=== PATIENT | male | born 1960 | race Caucasian/White ===

== ENCOUNTER → 2019-02-21 13:03 | Outpatient (CLI) | payer MEDICAID, SELFPAY ==
--- NOTE | 2019-02-21 13:05 | CI_ITS ---
Cerebrovascular Exam Indications: 780.4 Dizziness and giddiness. IMPRESSIONS 1. The bilateral vertebral arteries are patent with normal antegrade flow. 2. Study suggests less than 20% stenosis involving the right internal carotid artery. 3. Study suggests less than 20% stenosis involving the left internal carotid artery. History: Risk factors: Extobacco use. Hypertension. Diabetes mellitus. Carotid duplex study. Complete study and Doppler flow study including spectral analysis, color and plummer scale imaging. Height: Height: 177.8cm. Height: 70in. Weight: Weight: 101.2kg. Weight: 222.5lb. Body mass index: BMI: 32kg/m^2. Body surface area: BSA: 2.27m^2. Location: Vascular laboratory. Patient status: Outpatient. Tables: Arterial flow: + +--------+--------+ Location V sys V ed + +--------+--------+ Right CCA - proximal 86.8cm/s 19.6cm/s + +--------+--------+ Right CCA - distal 84.5cm/s 19.3cm/s + +--------+--------+ Right ECA 106cm/s 18cm/s + +--------+--------+ Right ICA - proximal 62.3cm/s 16.9cm/s + +--------+--------+ Right ICA - mid 63cm/s 17.1cm/s + +--------+--------+ Right ICA - distal 47.4cm/s 18.5cm/s + +--------+--------+ Right vertebral 74.2cm/s 22.7cm/s + +--------+--------+ Left CCA - proximal 85.6cm/s 15.4cm/s + +--------+--------+ Left CCA - distal 77.1cm/s 21.5cm/s + +--------+--------+ Left ECA 117cm/s 21.8cm/s + +--------+--------+ Left ICA - proximal 69.7cm/s 23.7cm/s + +--------+--------+ Left ICA - mid 73.4cm/s 25.2cm/s + +--------+--------+ Left ICA - distal 72.1cm/s 27.4cm/s + +--------+--------+ Left vertebral 45cm/s 15.5cm/s + +--------+--------+ Velocity ratios: + + + + + + Right, V sys Right, V ed Left, V sys Left, V ed + + + + + + Max ICA/dist CCA 0.75 0.96 0.95 1.27 + + + + + + (Report amended ) Electronically signed by: Dedrick Brady [id number]
--- NOTE | 2019-02-21 13:05 | CA_ITS ---
PROCEDURE: 2-D M-mode and color Doppler study INDICATIONS FOR THE TEST: Chest pain COPD Heart Murmur Tobacco Smoking Palpitations Fatigue Syncope Edema Hypertension+Diabetes Mellitus Rheumatic Fever SOB + P[place] Obesity Hyperlipidemia Family History HD Additional History PATIENT INFORMATION HEIGHT: 70 WEIGHT:223 GENDER: Male B/P: 2-D/M-MODE INTERPRETATION: 2-D MEASUREMENTS OBSERVED VALUES IN CMS Right Ventricular Dimension (RVDd) 2.6 Interventricular Septum (Thickness)(IVsd) 1.4 Left Ventricular Internal Dimensions(LVIDd) 4.7 Left Ventricular Posterior Wall (Thickness)(LVPWd) 1.3 Aortic Root 3.1 Aortic Cusp Separation 2.2 Left Atrial Dimensions (LAD) 4.0 2D 1. Left atrium is mildly enlarged, left ventricle is normal size, mild concentric left ventricular hypertrophy, visually estimated ejection fraction 55% with no regional wall motion abnormality. 2. The right atrium and right ventricle are normal size and contractility. 3. The aortic valve is minimally thickened and fibrosed. 4. The mitral and tricuspid valvular grossly normal. 5. The pulmonic valve is poorly visualized. 6. No significant pericardial effusion noted. DOPPLER INTERROGATION: Doppler interrogation of the aortic, mitral and tricuspid valvular presence of mild mitral and tricuspid regurgitation, tricuspid regurgitation jet velocity is inadequate for calculation of the right ventricle systolic pressure, grade 1 diastolic dysfunction seen with tissue Doppler evidence of raised left atrial pressure. CONCLUSION: 1. Mildly enlarged left atrium, normal left ventricular size, mild concentric left ventricular hypertrophy, visually estimated ejection fraction 55% with no regional wall motion abnormality, grade 1 diastolic dysfunction seen with tissue Doppler evidence of raised left atrial pressure. 2. Mild mitral and tricuspid regurgitation. 3. No significant pericardial effusion noted.
== END ==
PROVIDERS: PCP Nurse Practitioner; Visit Provider Nurse Practitioner
DX: R06.02 Shortness of breath (principal); I10 Essential (primary) hypertension
CPT/HCPCS: 93306; 93880

== ENCOUNTER → 2019-02-27 14:05 | Outpatient (CLI) | payer MEDICAID, SELFPAY ==
[2019-02-27 16:17] LABS: Blood Urea Nitrogen 16 mg/dL (7-18); Creatinine,Serum 1.18 mg/dL (0.70-1.30); Estimated Glomerular Filt Rate 63 ml/min (>60); GFR (African American) 76 ML/MIN (>60)
== END ==
PROVIDERS: Visit Provider Surgery
DX: R10.32 Left lower quadrant pain (principal); Z01.818 Encounter for other preprocedural examination
CPT/HCPCS: 36415; 82565; 84520

== ENCOUNTER → 2019-03-01 09:00 | Outpatient (CLI) | payer MEDICAID, SELFPAY ==
--- NOTE | 2019-03-01 09:25 | CT_ITS ---
CT abdomen pelvis w con CLINICAL INDICATION: Left lower quadrant pain, diarrhea ITS.REASON: lower quad pain/diarrhea ORDERING PHYSICIAN: Vishal Singh MD PATIENT AGE: 58 years COMPARISON: None TECHNIQUE: Axial images obtained with sagittal and coronal reformats. All CT scans at the facility use one or more dose reduction, viz: automated exposure control, ma/kV adjustment per patient size (including targeted exams where dose is matched to indication, i.e. head), or iterative reconstruction technique. PROCEDURE: Oral Contrast: Redicat IV Contrast: Optiray 350, 75 mL's. FINDINGS: There is noncalcified subpleural nodule in the right middle lobe anteriorly measuring 6 mm. Noncalcified 4 mm subpleural nodule present in the right lower lobe. Calcified granuloma is present right lung base medially. The liver, spleen, adrenal glands, and pancreas have an unremarkable appearance. There are postcholecystectomy changes. No renal or ureteral calculi. No intestinal obstruction or free air. No evidence of appendicitis or diverticulitis. There is a small appendicolith present. Prostate is prominent at 6 cm. No acute bony anomalies evident. IMPRESSION: 1. No acute abdominal or pelvic findings. 2. Enlarged prostate. 3. Noncalcified pulmonary nodules in the right middle and right lower lobe. Consider six-month CT follow-up
[2019-03-01 09:28] LABS: Adenovirus F 40/41, stool Not Detected (NotDetected); Astrovirus Not Detected (NotDetected); Campylobacter Not Detected (NotDetected); Clostridium Difficile A/B, PCR Not Detected (NotDetected); Cryptosporidium Not Detected (NotDetected); Cyclospora Cayetanesis Not Detected (NotDetected); Entamoeba histolytica Not Detected (NotDetected); Enteroaggregative E coli Not Detected (NotDetected); Enteropathogenic E coli Not Detected (NotDetected); Enterotoxigenic E coli Not Detected (NotDetected); Giardia lamblia Not Detected (NotDetected); Norovirus Not Detected (NotDetected); Plesimonas Shigalloides, PCR Not Detected (NotDetected); Rotavirus A Not Detected (NotDetected); Salmonella, PCR Not Detected (NotDetected); Sapovirus Not Detected (NotDetected); Shiga-like toxin E coli Not Detected (NotDetected); Shigella Enterovasive E coli Not Detected (NotDetected); Vibrio Cholerae Not Detected (NotDetected); Vibrio, PCR Not Detected (NotDetected); Yersinia Entercolitica, PCR Not Detected (NotDetected)
== END ==
PROVIDERS: PCP Family Medicine; Visit Provider Surgery
DX: R10.32 Left lower quadrant pain (principal); R19.7 Diarrhea, unspecified
CPT/HCPCS: 74177; 87506; 87507; Q9967

== ENCOUNTER → 2019-04-03 14:12 | Outpatient (CLI) | payer MEDICAID, SELFPAY ==
--- NOTE | 2019-04-03 14:15 | XR_ITS ---
XR chest 2V HISTORY: ITS.REASON: shortness of breath ORDERING PHYSICIAN: Vishal Singh MD PATIENT AGE: 58 years COMPARISON: 05/09/2017 FINDINGS: There is mild pectus deformity with some attenuation of the right heart border. Normal heart size. No evidence of CHF. No lobar consolidation or collapse. Bone plate is present along the lower cervical spine. IMPRESSION: No change with no acute finding
== END ==
PROVIDERS: PCP Family Medicine; Visit Provider Surgery
DX: R06.02 Shortness of breath (principal)
CPT/HCPCS: 71046

== ENCOUNTER → 2019-10-30 13:47 | Outpatient (CLI) | payer OTHER, SELFPAY ==
--- NOTE | 2019-10-30 14:03 | CT_ITS ---
PROCEDURE: CT CHEST W CON CLINCAL INDICATION: 5 mo fu COMPARISON: ABDPELW CT abdomen pelvis w con from 03/01/2019 TECHNIQUE: IV Contrast: 75ml Optiray 350 Axial images obtained with sagittal and coronal reformats. All CT scans at the facility use one or more dose reduction, viz: automated exposure control, ma/kV adjustment per patient size (including targeted exams where dose is matched to indication, i.e. head), or iterative reconstruction technique. FINDINGS: HEART,AORTA,PULMONARY ARTERIES Unremarkable. MEDIASTINAL AND HILAR STRUCTURES: No mediastinal or hilar mass evident. No dominant adenopathy. LUNGS: 2 mm noncalcified nodule right upper lobe laterally and anteriorly nonspecific. 3 mm nodule right upper lobe centrally series 3, image 42. Stable 6 mm nodule right middle lobe. There is a 4 mm nodule in the right CP angle unchanged and a 4 mm nodule in the right lower lobe posteriorly and medially unchanged. Calcified granulomas present in the right lower lobe medially. 4 mm noncalcified nodule left upper lobe series 3, image 39. PLEURAL SPACES: No significant effusion. No evidence of pneumothorax. BONY STRUCTURES: Degenerative changes thoracic spine LYMPH NODES: Scattered small mediastinal lymph nodes. No adenopathy UPPER ABDOMEN: Fatty liver ADDITIONAL FINDINGS: Bilateral gynecomastia IMPRESSION: 1. The right lower lobe pulmonary nodules previously mention on the abdomen CT of 03/01/2019 are unchanged. The largest nodule 6 mm and is unchanged. There are other smaller nodules present in both right and left lung. These areas were not previously imaged. Suggest continued 12 month follow-up chest CT. 2. Other nonacute findings as described above. Dictated by: Dedrick Brady MD 11/01/2019 11:12 Electronically signed by Dedrick Brady MD in [place] 11/01/2019 11:12
[2019-10-30 14:24] LABS: Blood Urea Nitrogen 18 mg/dL (7-18); Creatinine,Serum 1.07 mg/dL (0.70-1.30); Estimated Glomerular Filt Rate 70 ml/min (>60); GFR (African American) 85 ML/MIN (>60)
== END ==
PROVIDERS: Visit Provider Surgery
DX: R91.8 Other nonspecific abnormal finding of lung field (principal)
CPT/HCPCS: 36415; 71260; 82565; 84520; Q9967

== ENCOUNTER → 2020-04-30 14:34 | Outpatient (CLI) | payer OTHER, SELFPAY ==
[2020-04-30 15:23] LABS: Adenovirus,PCR Not Detected (NotDetected); Bordetella Pertussis Not Detected (NotDetected); Chlamydophila Pneumoniae, PCR Not Detected (NotDetected); Coronavirus 229E Not Detected (NotDetected); Coronavirus NL63 Not Detected (NotDetected); Coronavirus OC43 Not Detected (NotDetected); Coronovirus HKU1,PCR Not Detected (NotDetected); Human Metapneumovirus Not Detected (NotDetected); Influenza A, PCR Not Detected (NotDetected); Influenza AH1, 2009 Not Detected (NotDetected); Influenza AH1, PCR Not Detected (NotDetected); Influenza AH3,PCR Not Detected (NotDetected); Influenza B, PCR Not Detected (NotDetected); Mycoplasma Pneumoniae, PCR Not Detected (NotDetected); Parainfluenza 1, PCR Not Detected (NotDetected); Parainfluenza 2, PCR Not Detected (NotDetected); Parainfluenza 3, PCR Not Detected (NotDetected); Parainfluenza 4, PCR Not Detected (NotDetected); Respiratory Syncytial Virus Not Detected (NotDetected); Rhinovirus/Enterovirus Not Detected (NotDetected)
== END ==
PROVIDERS: PCP Nurse Practitioner; Visit Provider Nurse Practitioner
DX: Z20.828 Contact with and (suspected) exposure to other viral communicable diseases (principal)
CPT/HCPCS: 87486; 87581; 87633; 87798; U0003

== ENCOUNTER → 2021-01-16 13:00 | Outpatient (POV) | payer OTHER, SELFPAY ==
[2021-01-16 13:27] VITALS: BP 142/78; PULSE 77; RESP 18; O2SAT 98; BMI 32.3
--- NOTE | 2021-01-16 16:17 | HMH.PMCON ---
Assessment and Plan (1) Postlaminectomy syndrome of cervical region Status: Acute Category: Medical Code(s): M96.1 - Postlaminectomy syndrome, not elsewhere classified (2) Cervical radiculopathy Status: Acute Category: Medical Code(s): M54.12 - Radiculopathy, cervical region - Assessment and plan all Dx Assessment and Plan for all problems:: We will schedule the patient for C5-C6 cervical epidural steroid injection. I will follow-up with him afterwards reassess his symptoms at that time he has been instructed to call the office if he has any issues prior to his next appointment. He is not on any anticoagulation therapy. Dr. Colin has reviewed this note and agrees with this plan of care. This note was dictated using voice recognition software and may contain errors or omissions HPI - Data of Consult Consult date: 01/16/21 Requesting Physician: Basia James APRN Primary Care Provider: Ryne Bergman MD - Consult Narrative Reason for consult: Neck pain History of present illness: Mr. Castrejon is a 60 year old male who presents today for consultation regards to his cervical pain. Patient has cervical pain that radiates down his left arm at times. Any kind of increased use increases his pain. Rest and ice decreases pain. Patient has numbness and tingling in his left arm. Patient rates his pain today 6 out of 10. He has had neck surgery in the past. Patient is currently taking Tylenol as needed for pain. Patient is interested in injective therapy. Patient's not on any anticoagulation therapy. CC: Basia James APRN [facility] History I have reviewed the patient's past medical history: Yes Medical History: Reports:: Diabetes Mellitus Type 2, Gastroesophageal Reflux Disease(GERD), Hypertension Denies:: Cancer, Diabetes Mellitus Type 1, Internal Pacemaker, Lung Disease, MRSA, Seizures *Have you ever received a pneumonia vaccine?: Yes *Have you received a flu vaccine this season?: Yes Other Medical History: Reports: Arthritis. Denies: Blood Transfusion Reaction Laterality Cases: Bilateral: Arthroscopy Shoulder, Carpal Tunnel Release, Tonsillectomy Other Surgeries: Yes: Cholecystectomy, Colonoscopy, EGD, Other. No: Pacemaker Amputation: No Fractures: No - *Social History Smoking Status: Former smoker Tobacco Type: cigarettes Alcohol Intake: never Substance Use Type: denies use *Occupational Status:: retired Housing: house Household Members: other *Travel in the last 8 weeks: None Family Hx:: Unable to obtain Review of Systems - Review of Systems ROS General: no recent weight change, no fever, no sleep disturbances Respiratory: no cough, no shortness of air, no recurring pulmonary infections Cardiovascular/Peripheral Vascular: No chest pain, No palpitations, no edema, no shortness of breath. Gastrointestinal: no new onset incontinence, normal bowel movements reported Genitourinary: no new onset incontinence Musculoskeletal: Cervical pain, left arm pain at times Psychiatric: normal mood/ affect Neurological: [denies new onset weakness in extremities], [denies new onset balance issues] Meds Home Medications Medication Instructions Recorded Confirmed Type aspirin 81 mg tablet,delayed 81 mg PO QDAY 10/05/17 11/13/19 History release cyclobenzaprine 10 mg tablet 10 mg PO TID 10/05/17 11/13/19 History fluoxetine 60 mg tablet 60 mg PO QDAY 10/05/17 11/13/19 History hydrocodone 7.5 mg-acetaminophen 1 tab PO Q6H PRN 10/05/17 11/13/19 History 325 mg tablet multivitamin 1 tab PO QDAY 10/05/17 11/13/19 History omeprazole 40 mg capsule,delayed 40 mg PO QDAY 10/05/17 11/13/19 History release topiramate 25 mg tablet 25 mg PO QDAY 10/05/17 11/13/19 History Losartan/Hydrochlorothiazide 1 tab PO QDAY 04/03/19 11/13/19 History [Hyzaar 50-12.5 Tablet] Propranolol HCl [Propranolol HCl 120 mg PO QDAY 04/03/19 11/13/19 History ER] Allergies Allergy/AdvReac Type Severity
== END ==
PROVIDERS: PCP Family Medicine; Visit Provider Clinical Nurse Specialist Family Health
DX: M96.1 Postlaminectomy syndrome, not elsewhere classified (principal); M54.12 Radiculopathy, cervical region
CPT/HCPCS: 99202; G0463

== ENCOUNTER → 2021-01-24 15:03 | Outpatient (CLI) | payer OTHER, SELFPAY | PROVIDERS: PCP Family Medicine; Visit Provider Family Medicine | DX: Z71.3 Dietary counseling and surveillance (principal); E11.65 Type 2 diabetes mellitus with hyperglycemia | CPT/HCPCS: 97802 ==

== ENCOUNTER → 2021-01-30 15:15 | Outpatient (CLI) | payer OTHER, SELFPAY ==
--- NOTE | 2021-01-30 15:21 | MR_ITS ---
PROCEDURE: MR CERVICAL SPINE WO CON CLINICAL INDICATION: NECK PAIN Lt arm pain. Prior surgery 7-8 years ago. COMPARISON: CR CS5 CERVICAL SPINE 4 OR 5 VIEWS from 11/16/2016 TECHNIQUE: Standard multiplanar multiecho sequences are performed without contrast. 3-D MIP and myelographic images are also rendered and reviewed FINDINGS: Craniocervical junction has an unremarkable appearance. Prior anterior cervical disc fusion from C5-T1. Artifact is present from the bony hardware. C2-C3: Mild prominence of the posterior longitudinal ligament without impingement. C3-C4: Mild concentric bulging disc. There is mild left-sided uncovertebral hypertrophy causing moderate left-sided foraminal narrowing. There is narrowing of the canal at this level measuring 9 mm. High without cord impingement C4-C5: Unremarkable C5-C6: Artifact from postsurgical changes. Right-sided uncovertebral hypertrophy with foraminal narrowing on the right. C6-C7: Artifact from postsurgical changes with mild left uncovertebral hypertrophy and foraminal narrowing. C7-T1: Artifact from postsurgical changes. T1-T2: Bulging disc with bilateral lateral recess and moderate bilateral foraminal narrowing. IMPRESSION: 1. Postsurgical changes with artifact. Good alignment. The 2. Multilevel cervical spondylosis with lateral recess and foraminal narrowing. Please see above for detailed description at each level. 3. No extruded herniated disc. Dictated by: Dedrick Brady MD 01/31/2021 10:47 Dedrick Brady MD in [place] 01/31/2021 10:47
== END ==
PROVIDERS: PCP Family Medicine; Visit Provider Clinical Nurse Specialist Family Health
DX: M54.2 Cervicalgia (principal)
CPT/HCPCS: 72141; 76376

== ENCOUNTER → 2021-02-07 11:56 | Day surgery (SDC) | payer OTHER, SELFPAY ==
[2021-02-07 12:05] VITALS: BP 187/84; PULSE 65; RESP 18; TEMP 36.6; O2SAT 98; BMI 33.2
--- NOTE | 2021-02-07 12:33 | PC.NURSE ---
procedure not completed due to elevated glucose. discussed this with the patient. pt discharged home to return in two weeks.
--- NOTE | 2021-02-07 12:45 | HMH.PAINSOAP ---
[facility] Pain Management SOAP Note Subjective:: Patient was scheduled for an injection today. His blood sugar was 320 so we have postponed his injection until his sugars under control. Objective:: Alert and oriented x3 no acute distress. Motor strength of the upper extremities is 5/5. There is no gross sensory deficit. Assessment:: Degenerative disc disease of cervical spine with cervical radiculopathy symptoms Plan:: Patient was scheduled for an injection today. His blood sugar was 320 so we have postponed his injection until his sugars under control. We will follow-up with him in 2 weeks. Will reevaluate symptoms at that time. [facility] History Medical History: Reports:: Gastroesophageal Reflux Disease(GERD), Hypertension Denies:: Cancer, Diabetes Mellitus Type 1, Diabetes Mellitus Type 2, Internal Pacemaker, Lung Disease, MRSA, Seizures *Have you ever received a pneumonia vaccine?: No *Have you received a flu vaccine this season?: No Other Medical History: Reports: Arthritis. Denies: Blood Transfusion Reaction Laterality Cases: Bilateral: Arthroscopy Shoulder, Carpal Tunnel Release, Tonsillectomy Other Surgeries: Yes: Cholecystectomy, Colonoscopy, EGD, Other. No: Pacemaker Amputation: No Fractures: No - *Social History Smoking Status: Former smoker Tobacco Type: cigarettes Alcohol Intake: never Substance Use Type: denies use *Occupational Status:: employed Housing: house Household Members: spouse *Travel in the last 8 weeks: None Family Hx:: Unable to obtain
== END ==
PROVIDERS: PCP Family Medicine; Visit Provider Anesthesiology
DX: M50.10 Cervical disc disorder with radiculopathy, unspecified cervical region (principal)
CPT/HCPCS: 99212; G0463

== ENCOUNTER 2021-02-28 09:45 | Day surgery (SDC) | payer OTHER, SELFPAY ==
[2021-02-28 10:07] VITALS: BP 157/90; PULSE 66; RESP 20; TEMP 36.7; O2SAT 94; BMI 33.0
[2021-02-28 10:38] VITALS: BP 168/86; PULSE 65; RESP 17; O2SAT 94
[2021-02-28 10:40] VITALS: BP 168/86; PULSE 65; RESP 18; O2SAT 94
--- NOTE | 2021-02-28 10:50 | P.PCN_ITS ---
- Procedure Date: 02/28/21 Time: 10:50 Anesthesiologist:: Jese Colin MD Complications:: None Pre-procedure Diagnosis:: Degenerative disc disease of the cervical spine with previous ACDF and postlaminectomy syndrome cervical spine Post-procedure Diagnosis:: Same Indications for Procedure:: This patient is a pleasant 60-year-old white male who we are treating for neck pain with cervical radiculopathy symptoms with previous ACDF and postlaminectomy syndrome cervical spine. We postponed his procedure last week because his blood sugar was 320. It is down to 200 today. He has increased his insulin. He is doing well with better control of his glucose. We will do a cervical epidural steroid injection under fluoroscopy today. Procedure Details:: Cervical epidural steroid injection under fluoroscopy Informed consent was obtained and the risks and benefits of the procedure was explained to the patient. The patient was taken to the procedure room placed prone on the procedure table. The neck was prepped using ChloraPrep. The skin and subcutaneous tissues were anesthetized using lidocaine. I placed a 18-gauge epidural needle into the C5-C6 interspace and advanced using [id number] to air and fluoroscopic guidance. After confirmation of needle placement in the epidural space with dye, I injected 3 mL's lidocaine 1.5% and Depo-Medrol 80 mg. The patient tolerated the procedure well with no complications. Plan and Disposition:: We will follow-up with him in 2 weeks. Will reevaluate his symptoms at that ti me.
[2021-02-28 11:01] VITALS: BP 163/80; PULSE 67; RESP 20; O2SAT 98
== END 2021-02-28 11:02 | disposition home or self-care (01) ==
PROVIDERS: PCP Family Medicine; Visit Provider Anesthesiology
DX: M50.30 Other cervical disc degeneration, unspecified cervical region (principal); M96.1 Postlaminectomy syndrome, not elsewhere classified; Z87.39 Personal history of other diseases of the musculoskeletal system and connective tissue; I10 Essential (primary) hypertension; K21.9 Gastro-esophageal reflux disease without esophagitis; M19.90 Unspecified osteoarthritis, unspecified site; F41.9 Anxiety disorder, unspecified; F32.9 Major depressive disorder, single episode, unspecified; E11.9 Type 2 diabetes mellitus without complications; Z87.09 Personal history of other diseases of the respiratory system; Z87.891 Personal history of nicotine dependence; Z79.899 Other long term (current) drug therapy
CPT/HCPCS: 62321; J1040; Q9966

== ENCOUNTER → 2021-03-24 09:47 | Outpatient (POV) | payer OTHER, SELFPAY ==
[2021-03-24 10:02] VITALS: BP 180/80; PULSE 65; RESP 18; O2SAT 97; BMI 32.3
--- NOTE | 2021-03-24 10:11 | P.CONS_ITS ---
[facility] Pain Management SOAP Note Subjective:: Patient is a 60-year-old white male who presents today for follow-up after a cervical epidural steroid injection. He has been treated for degenerative disc disease cervical spine with cervical radiculopathy symptoms and postlaminectomy syndrome cervical spine. His pain is a 2 out of 10 today. He says he got great relief with the injection. He is doing well overall since the injection and is able to do more activity with less pain. He is continuing with home stretching. Review of Systems General: No recent weight changes, no fever, no sleep disturbances Respiratory: No cough, no shortness of air, no recurring pulmonary infections Cardiovascular/peripheral vascular: No chest pain, no palpitations, no edema, no shortness of breath Gastrointestinal: No new onset incontinence, normal bowel movements reported Genitourinary: No new onset incontinence Musculoskeletal: Denies pain at this time Psychiatric: Normal mood/affect Neurological: [Denies weakness in extremities], [denies balance issues] Objective:: Physical exam General: Alert and oriented x3, no acute distress, pleasant and cooperative, [on room air] Lungs: Respirations even and unlabored, symmetrical chest expansion Eyes: PERRL Musculoskeletal: Flexion and extension of [] nonguarded, deep tendon reflexes normal, strength in upper and lower extremities [5/5], normal gait noted Neurological: Speech clear, partnership marketing manager equal, no gross sensory deficit Assessment:: Degenerative disc disease cervical spine with cervical radiculopathy symptoms, postlaminectomy syndrome cervical spine Plan:: Patient is doing well overall. We will plan to see him back in 3 months for reevaluation of symptoms. Patient has been instructed to contact the clinic with any concerns before the next appointment. Dr. Colin has reviewed this note and agrees with this plan of care. This note was dictated using voice recognition software and make contain errors or omissions. [facility] History I have reviewed the patient's past medical history: Yes Medical History: Reports:: Diabetes Mellitus Type 2, Gastroesophageal Reflux Disease(GERD), Hypertension Denies:: Cancer, Diabetes Mellitus Type 1, Internal Pacemaker, Lung Disease, MRSA, Seizures *Have you ever received a pneumonia vaccine?: Yes *Have you received a flu vaccine this season?: Yes Other Medical History: Reports: Arthritis. Denies: Blood Transfusion Reaction Laterality Cases: Bilateral: Arthroscopy Shoulder, Carpal Tunnel Release, Tonsillectomy Other Surgeries: Yes: Cholecystectomy, Colonoscopy, EGD, Other. No: Pacemaker Amputation: No Fractures: No - *Social History Smoking Status: Never smoker Tobacco Type: cigarettes Alcohol Intake: never Substance Use Type: denies use *Occupational Status:: employed Housing: house Household Members: spouse *Travel in the last 8 weeks: None Family Hx:: Unable to obtain
== END ==
PROVIDERS: PCP Family Medicine; Visit Provider Clinical Nurse Specialist Family Health
DX: M50.10 Cervical disc disorder with radiculopathy, unspecified cervical region (principal); M96.1 Postlaminectomy syndrome, not elsewhere classified
CPT/HCPCS: 99212; G0463

== ENCOUNTER 2021-06-21 11:42 | Emergency (ER) | payer OTHER, SELFPAY ==
[2021-06-21 13:00] VITALS: BP 164/82; PULSE 78; RESP 18; TEMP 36.9; O2SAT 97; BMI 35.2
--- NOTE | 2021-06-21 13:26 | HMH.EDUTC ---
[facility] Disposition Clinical Impression: Upper respiratory infection Qualifiers: URI type: unspecified viral URI Qualified Code(s): J06.9 - Acute upper respiratory infection, unspecified Disposition: Home, Self-Care Condition on Discharge: Good Instructions: Preventing the Spread of Coronavirus Discharge Instructions Additional Instructions: You have been tested for COVID19. Please isolate yourself as if you are positive until test results received. Return to [facility] if difficulty breathing, chest pain, etc Referrals: Ryne Bergman MD [Primary Care Provider] - Time of Disposition: 13:29 Medical Decision Making - Jay Inquiry Pt receiving controlled substance: No Vital Signs: 06/21/21 13:00 Temperature 98.4 F Temperature Source Oral Pulse Rate [Right Brachial] 78 Respiratory Rate 18 Blood Pressure [Right Arm] 164/82 H Blood Pressure Mean [Right Arm] 109 Blood Pressure Source [Right Arm] Automatic Cuff Blood Pressure Position [Right Arm] Sitting 02 Sat by Pulse Oximetry 97 Oxygen Delivery Method Room Air Orders (Tests/Meds): ORDERS Category Date Time Status Covid-19 Nasal PCR ([facility]) Routine Lab 06/21/21 13:25 Ordered [facility] [place] HPI - General Stated complaint: exposure,symptoms Time Seen by Provider: 06/21/21 13:26 Mode of Arrival: Ambulatory Source of Information: Patient Limitations: No Limitations Description of Symptoms (Recalled from Triage Doc. by RN): PATIENT C/O VOMITING, DIARRHEA, BODY ACHES, HEADACHE, COUGH, AND SNEEZING X 1 WEEK. REQUESTING COVID TEST HEENT Symptoms (Recalled from RN notes): Yes Resp Symptoms (Recalled from RN notes): No Skin Symptoms (Recalled from RN notes): No MS Symptoms (Recalled from RN notes): No Functional Status (Recalled from RN notes): WNL - History of Present Illness Provider Complaint: Headache, cough, congestion, sneezing, runny nose, chest tightness, diarrhea X 1 week. No known direct exposure to COVID19. No fever. He has been vaccinated. Onset (ago): week(s) (1) Relieving factors: none Exacerbating factors: none Associated symptoms: cough, fever/chills, headaches Treatments prior to arrival: none - Related Data Home Medications Medication Instructions Recorded Confirmed omeprazole 40 mg capsule,delayed 40 mg PO QDAY 01/09/18 05/14/21 release topiramate 25 mg tablet 25 mg PO QDAY 10/05/17 02/07/21 Propranolol HCl [Propranolol HCl 120 mg PO QDAY 04/03/19 02/07/21 ER] Furosemide [Lasix 20mg tab] 20 mg PO DAILY 02/28/21 02/28/21 Metformin HCl [Metformin 850mg 750 mg PO DAILY 02/28/21 02/28/21 Tablet] Pramipexole Di-HCl [Pramipexole ER] 1 mg PO DAILY 02/28/21 02/28/21 Tamsulosin HCl 0.4 mg PO DAILY 02/28/21 02/28/21 Allergies Allergy/AdvReac Type Severity Reaction Status Date / Time morphine [MORPHINE] Allergy Unknown Verified 02/07/21 12:22 - Worker's Comp Is this a Worker's Comp case?: No [facility] History - Hepatitis A Screen Drug use history?: No High risk sexual behaviors?: No History of sexually transmitted infection?: No Currently employed?: No Childcare worker?: No Do you have indoor plumbing?: Yes Do you have electricity?: Yes Attestation statement:: This patient has been screened for Hepatitis A risk factors. I have reviewed the patient's past medical history: Yes Medical History: Reports:: Diabetes Mellitus Type 2, Gastroesophageal Reflux Disease(GERD), Hypertension Denies:: Cancer, Diabetes Mellitus Type 1, Internal Pacemaker, Lung Disease, MRSA, Seizures Other Medical History: Reports: Arthritis. Denies: Blood Transfusion Reaction Comment: Obstructive Sleep Apnea Syndrome Laterality Cases: Bilateral: Arthroscopy Shoulder, Carpal Tunnel Release, Tonsillectomy Other Surgeries: Yes: Cholecystectomy, Colonoscopy, EGD, Other. No: Pacemaker Amputation: No Fractures: No - Social History Smoking Status: Never smoker Tobacco Type: cigarettes Alcohol Intake: never Substance Use Type: denies use Occupational
[2021-06-21 13:35] VITALS: BP 164/82; PULSE 78; RESP 18; TEMP 36.9; O2SAT 97
== END 2021-06-21 13:36 | disposition home or self-care (01) ==
PROVIDERS: Emergency Provider Physician Assistant; PCP Family Medicine
DX: J06.9 Acute upper respiratory infection, unspecified (principal)
CPT/HCPCS: 99202; C9803; G0463; U0003; U0005

== ENCOUNTER → 2021-06-24 13:09 | Outpatient (POV) | payer OTHER, SELFPAY ==
[2021-06-24 13:17] VITALS: BP 188/91; PULSE 67; RESP 18; O2SAT 95; BMI 32.3
--- NOTE | 2021-06-24 13:44 | P.CONS_ITS ---
[facility] Pain Management SOAP Note Subjective:: Patient is a 60-year-old white male who presents today for follow-up. The patient was seen in the clinic on 03/24/2021. He has undergone a cervical epidural steroid injection at C6-C7 area. He reports that he got excellent relief until 2 weeks ago. He got up to 80% relief with these injections. This was the patient's #1 cervical epidural steroid injection. The patient says that his pain has returned. He does rate his pain a 6 out of 10. He is having radicular pain into bilateral upper extremities as well. Patient does have a history of postlaminectomy syndrome cervical spine. He has tried failed conservative therapies of physical therapy for more than 6 weeks and continues with home stretching. He is also tried ice and heat therapies. Review of Systems General: No recent weight changes, no fever, no sleep disturbances Respiratory: No cough, no shortness of air, no recurring pulmonary infections Cardiovascular/peripheral vascular: No chest pain, no palpitations, no edema, no shortness of breath Gastrointestinal: No new onset incontinence, normal bowel movements reported Genitourinary: No new onset incontinence Musculoskeletal: Neck pain with radiation into bilateral upper extremities Psychiatric: [Normal mood/affect] Neurological: [Denies weakness in extremities], [denies balance issues] Objective:: Physical exam General: Alert and oriented x3, no acute distress, pleasant and cooperative, [on room air] Lungs: Respirations even and unlabored, symmetrical chest expansion Eyes: PERRL Musculoskeletal: Flexion and extension of cervical [spine] somewhat guarded secondary to pain, normal gait noted Neurological: Speech clear, [correctional counselor/case manager equal], no gross sensory deficit Assessment:: Degenerative disc disease cervical spine with cervical radiculopathy symptoms Plan:: Patient got excellent relief from February 2021 until 2 weeks ago. The patient's pain has returned. We will schedule him for a repeat cervical epidural steroid injection at C6-C7 area, number 2 injection. We will see him back in the clinic after his injection for reevaluation symptoms. Patient is not on any anticoagulation therapy. Possible side effects of corticosteroids have been discussed with the patient. Risks and benefits of the procedure have been explained to the patient. Patient would like to proceed with the procedure. Patient has been instructed to contact the clinic with any concerns before the next appointment. Dr. Colin has reviewed this note and agrees with this plan of care. This note was dictated using voice recognition software and make contain errors or omissions. [facility] History I have reviewed the patient's past medical history: Yes Medical History: Reports:: Diabetes Mellitus Type 2, Gastroesophageal Reflux Disease(GERD), Hypertension Denies:: Cancer, Diabetes Mellitus Type 1, Internal Pacemaker, Lung Disease, MRSA, Seizures *Have you ever received a pneumonia vaccine?: Yes *Have you received a flu vaccine this season?: No Other Medical History: Reports: Arthritis. Denies: Blood Transfusion Reaction Laterality Cases: Bilateral: Arthroscopy Shoulder, Carpal Tunnel Release, Tonsillectomy Other Surgeries: Yes: Cholecystectomy, Colonoscopy, EGD, Other. No: Pacemaker Amputation: No Fractures: No - *Social History Smoking Status: Never smoker Tobacco Type: cigarettes Alcohol Intake: never Substance Use Type: denies use *Occupational Status:: unemployed Housing: house Household Members: spouse *Travel in the last 8 weeks: None Family Hx:: Unable to obtain
== END ==
PROVIDERS: PCP Family Medicine; Visit Provider Clinical Nurse Specialist Family Health
DX: M50.10 Cervical disc disorder with radiculopathy, unspecified cervical region (principal)
CPT/HCPCS: 99212; G0463

== ENCOUNTER → 2021-07-18 11:11 | Outpatient (CLI) | payer OTHER, SELFPAY | PROVIDERS: PCP Family Medicine; Visit Provider Nurse Practitioner | DX: Z20.822 Contact with and (suspected) exposure to COVID-19 (principal) | CPT/HCPCS: C9803; U0003; U0005 ==

== ENCOUNTER 2021-07-25 09:12 | Day surgery (SDC) | payer OTHER, SELFPAY ==
[2021-07-25 09:16] VITALS: BP 151/78; PULSE 64; RESP 18; TEMP 36.6; O2SAT 96; BMI 33.0
[2021-07-25 09:37] VITALS: BP 179/80; PULSE 69; RESP 18; O2SAT 96
[2021-07-25 09:44] VITALS: BP 175/87; PULSE 66; RESP 18; O2SAT 95
--- NOTE | 2021-07-25 09:49 | HMH.PMPROC ---
- Procedure Date: 07/25/21 Time: 09:50 Anesthesiologist:: Jese Colin MD Complications:: None Pre-procedure Diagnosis:: Degenerative disc disease of the cervical spine with cervical radiculopathy symptoms Post-procedure Diagnosis:: Same Indications for Procedure:: This patient is a pleasant 60-year-old white male who we are treating for neck pain with cervical radicular symptoms. He has increasing pain from previous postlaminectomy syndrome and cervical fusion. He did very well with his last cervical epidural steroid injection. We will plan on a repeat cervical epidural steroid injection under fluoroscopy today to help with his pain symptoms. He was 80% better for several weeks after his last cervical epidural steroid injection. Procedure Details:: Cervical epidural steroid injection under fluoroscopy Informed consent was obtained and the risks and benefits of the procedure was explained to the patient. The patient was taken to the procedure room placed prone on the procedure table. The neck was prepped using ChloraPrep. The skin and subcutaneous tissues were anesthetized using lidocaine. I placed a 18-gauge epidural needle into the C5-C6 interspace and advanced using [id number] to air and fluoroscopic guidance. After confirmation of needle placement in the epidural space with dye, I injected 3 mL's lidocaine 1.5% and Depo-Medrol 80 mg. The patient tolerated the procedure well with no complications. Plan and Disposition:: We will follow-up with him in 2 weeks. Will reevaluate his symptoms at that time.
[2021-07-25 10:05] VITALS: BP 171/84; PULSE 68; RESP 20; O2SAT 94
== END 2021-07-25 10:05 | disposition home or self-care (01) ==
LOC: SC.PAINP 09:13
PROVIDERS: PCP Family Medicine; Visit Provider Anesthesiology
DX: M50.10 Cervical disc disorder with radiculopathy, unspecified cervical region (principal); I10 Essential (primary) hypertension; K21.9 Gastro-esophageal reflux disease without esophagitis; M19.90 Unspecified osteoarthritis, unspecified site; E11.9 Type 2 diabetes mellitus without complications; N40.0 Benign prostatic hyperplasia without lower urinary tract symptoms; F41.9 Anxiety disorder, unspecified; F32.9 Major depressive disorder, single episode, unspecified; G43.909 Migraine, unspecified, not intractable, without status migrainosus; Z88.6 Allergy status to analgesic agent
CPT/HCPCS: 62321; J1040; Q9966

== ENCOUNTER → 2021-08-11 10:18 | Outpatient (POV) | payer OTHER, SELFPAY ==
[2021-08-11 10:27] VITALS: BP 184/87; PULSE 66; RESP 18; O2SAT 97; BMI 32.3
--- NOTE | 2021-08-11 10:31 | HMH.PAINSOAP ---
[facility] Pain Management SOAP Note Subjective:: Patient is a 60-year-old white male who presents today for follow-up. He is following up after his second cervical epidural steroid injection. Patient's pain is a 1 out of 10. He is doing very well since the injection. He does have a history of postlaminectomy syndrome and cervical fusion. Patient admits he was not expecting to get as much relief as he has with the injections. Overall he is doing well at this time. Review of Systems General: No recent weight changes, no fever, no sleep disturbances Respiratory: No cough, no shortness of air, no recurring pulmonary infections Cardiovascular/peripheral vascular: No chest pain, no palpitations, no edema, no shortness of breath Gastrointestinal: No new onset incontinence, normal bowel movements reported Genitourinary: No new onset incontinence Musculoskeletal: Intermittent neck pain Psychiatric: [Normal mood/affect] Neurological: [Denies weakness in extremities], [denies balance issues] Objective:: Physical exam General: Alert and oriented x3, no acute distress, pleasant and cooperative Lungs: Respirations even and unlabored, symmetrical chest expansion Eyes: PERRL Musculoskeletal: Flexion and extension of cervical [spine] somewhat guarded secondary to pain, [normal gait noted Neurological: Speech clear, no gross sensory deficit Assessment:: Degenerative disc disease cervical spine cervical radiculopathy symptoms, postlaminectomy syndrome cervical spine Plan:: Patient is doing well overall since his second cervical epidural steroid injection at C5-C6. We will schedule patient for 3-month follow-up to reevaluate his symptoms at that time. Patient has been instructed to contact the clinic with any concerns before the next appointment. Dr. Colin has reviewed this note and agrees with this plan of care. This note was dictated using voice recognition software and make contain errors or omissions. [facility] History I have reviewed the patient's past medical history: Yes Medical History: Reports:: Diabetes Mellitus Type 2, Gastroesophageal Reflux Disease(GERD), Hypertension Denies:: Cancer, Diabetes Mellitus Type 1, Internal Pacemaker, Lung Disease, MRSA, Seizures *Have you ever received a pneumonia vaccine?: Yes *Have you received a flu vaccine this season?: Yes Other Medical History: Reports: Arthritis. Denies: Blood Transfusion Reaction Laterality Cases: Bilateral: Arthroscopy Shoulder, Carpal Tunnel Release, Tonsillectomy Other Surgeries: Yes: Cholecystectomy, Colonoscopy, EGD, Other. No: Pacemaker Amputation: No Fractures: No - *Social History Smoking Status: Never smoker Tobacco Type: cigarettes Alcohol Intake: never Substance Use Type: denies use *Occupational Status:: employed Housing: house Household Members: spouse *Travel in the last 8 weeks: None Family Hx:: Unable to obtain
== END ==
PROVIDERS: Visit Provider Clinical Nurse Specialist Family Health
DX: M50.10 Cervical disc disorder with radiculopathy, unspecified cervical region (principal); M96.1 Postlaminectomy syndrome, not elsewhere classified
CPT/HCPCS: 99212; G0463

== ENCOUNTER → 2021-09-22 13:19 | Outpatient (CLI) | payer OTHER, SELFPAY | PROVIDERS: PCP Family Medicine; Visit Provider Nurse Practitioner | DX: Z20.822 Contact with and (suspected) exposure to COVID-19 (principal) | CPT/HCPCS: C9803; U0003; U0005 ==

== ENCOUNTER → 2021-10-20 14:25 | Outpatient (CLI) | payer OTHER, SELFPAY | PROVIDERS: Visit Provider Nurse Practitioner | DX: Z20.822 Contact with and (suspected) exposure to COVID-19 (principal) | CPT/HCPCS: C9803; U0003; U0005 ==

== ENCOUNTER → 2021-11-10 11:43 | Outpatient (POV) | payer OTHER, SELFPAY ==
[2021-11-10 12:10] VITALS: BP 156/76; PULSE 68; RESP 18; TEMP 36.4; O2SAT 92; BMI 33.0
--- NOTE | 2021-11-10 12:34 | P.CONS_ITS ---
[facility] Pain Management SOAP Note Subjective:: This patient is a very pleasant 61-year-old white male who presents today for follow-up. He is currently being treated for degenerative disease of the cervical spine with cervical radiculopathy. He has previously undergone cervical epidural steroid injections in the past and notes 70 to 80% pain relief in his pain symptoms for approximately 3 to 4 months. He states that his last injection was back in July and today states that the pain remains ongoing at this time. He states he would like to hold off on scheduling a repeat injection at this time since he continues to experience adequate pain relief. He rates his pain today as a 2 out of 10. Objective:: General: Alert and oriented x3, no acute distress, pleasant and cooperative Lungs: Resps E/U, symmetric chest expansion Eyes: PERRL Musculoskeletal: limited flexion and extension of the vocal spine secondary to pain. Deep tendon reflexes were normal in bilateral upper and lower extremities. Motor exam was grossly intact in the bilateral and lower extremities, positive Spurling's on the right Neurological: Speech is clear, low heel builder equal, no gross sensory deficits Assessment:: Degenerative disc disease of the cervical spine with cervical radiculopathy Plan:: I discussed with the patient that we will hold off on scheduling repeat cervical epidural steroid injection at C5-C6 for now but we will closely monitor for now. We will follow-up with this patient in 1 month for reassessment of his chronic pain symptoms and we will schedule him for a repeat injection in the future should the pain return. [facility] History Medical History: Reports:: Diabetes Mellitus Type 2, Gastroesophageal Reflux Disease(GERD), Hypertension Denies:: Cancer, Diabetes Mellitus Type 1, Internal Pacemaker, Lung Disease, MRSA, Seizures *Have you ever received a pneumonia vaccine?: Yes *Have you received a flu vaccine this season?: Yes Other Medical History: Reports: Arthritis. Denies: Blood Transfusion Reaction Laterality Cases: Bilateral: Arthroscopy Shoulder, Carpal Tunnel Release, Tonsillectomy Other Surgeries: Yes: Cholecystectomy, Colonoscopy, EGD, Other. No: Pacemaker Amputation: No Fractures: No - *Social History Smoking Status: Never smoker Tobacco Type: cigarettes Alcohol Intake: never Substance Use Type: denies use *Occupational Status:: retired Housing: house Household Members: spouse *Travel in the last 8 weeks: None Family Hx:: Unable to obtain
== END ==
PROVIDERS: Visit Provider Anesthesiology Pain Medicine
DX: M50.10 Cervical disc disorder with radiculopathy, unspecified cervical region (principal)
CPT/HCPCS: 99212; G0463

== ENCOUNTER → 2021-12-08 11:43 | Outpatient (POV) | payer OTHER, SELFPAY ==
[2021-12-08 12:12] VITALS: BP 175/85; PULSE 70; RESP 20; TEMP 36.5; O2SAT 97; BMI 32.3
--- NOTE | 2021-12-08 12:14 | P.CONS_ITS ---
[facility] Pain Management SOAP Note Subjective:: This patient is a very pleasant 61-year-old white male who presents today for follow-up/valuation regarding chronic cervical neck pain with cervical radiculopathy. Patient has previously undergone cervical epidural steroid injections in the past with 80 to 90% improvement terms of the cervical neck p ain and radicular symptoms. Patient is status post cervical epidural steroid injection several months ago. He states he still doing fantastic. Rates his pain 1/10. Objective:: Is awake alert oriented x3. In no acute distress. Flexion-extension cervical spine normal. Deep tendon reflexes upper and lower extremities normal. Motor strength upper extremities normal. Gait is normal. Patient is in no acute distress. Essentially, without complaints. Assessment:: Degenerative disc disease cervical spine. Multiple levels. Cervical radicu lopathy. Plan:: Discussed in detail with the patient regarding as needed cervical epidural steroid injections. Patient will call when he feels he needs another injection. [facility] History Medical History: Reports:: Diabetes Mellitus Type 2, Gastroesophageal Reflux Disease(GERD), Hypertension Denies:: Cancer, Diabetes Mellitus Type 1, Internal Pacemaker, Lung Disease, MRSA, Seizures *Have you ever received a pneumonia vaccine?: Yes *Have you received a flu vaccine this season?: Yes Other Medical History: Reports: Arthritis. Denies: Blood Transfusion Reaction Laterality Cases: Bilateral: Arthroscopy Shoulder, Carpal Tunnel Release, Tonsillectomy Other Surgeries: Yes: Cholecystectomy, Colonoscopy, EGD, Other. No: Pacemaker Amputation: No Fractures: No - *Social History Smoking Status: Never smoker Tobacco Type: cigarettes Alcohol Intake: never Substance Use Type: denies use *Occupational Status:: other Housing: house Household Members: spouse *Travel in the last 8 weeks: None Family Hx:: Unable to obtain
== END ==
PROVIDERS: Visit Provider Nurse Anesthetist, Certified Registered
DX: M50.10 Cervical disc disorder with radiculopathy, unspecified cervical region (principal)
CPT/HCPCS: 99212; G0463

== ENCOUNTER → 2022-08-10 14:43 | Outpatient (POV) | payer MEDICARE, OTHER, SELFPAY ==
[2022-08-10 15:24] VITALS: BP 156/78; PULSE 75; RESP 20; O2SAT 97
--- NOTE | 2022-08-10 15:59 | EXP.PAIN.SOA ---
[facility] Pain Management SOAP Note Subjective:: Patient is a pleasant 61-year-old male who presents today for follow-up. We are currently treating the patient for degenerative disc disease of cervical spine with cervical radiculopathy symptoms, chronic neck pain. Today patient rates his pain a 8 out of 10. Patient states he did just fall yesterday as he was going down the ramp at his house due to ice. Patient states that he does not believe he had any significant trauma from this fall however he continues to have worsening neck pain with headaches over the last month. Patient has previously had cervical epidural steroid injections in the past that provided 80 to 90% improvement of his symptoms. These injections typically lasted several months and improved his ability to perform activities of daily living. Patient denies any cardiac or kidney issues. Patient states he does take [id number] Tylenol and ibuprofen as needed to help with his pain symptoms. Patient does state he is a diabetic. Patient is not on any scheduled medications. His Jay is [id number]. It has been reviewed and appropriate. Review of Systems: General: No recent weight changes, no fever, no sleep disturbances Respiratory: No cough, no shortness of air, no recurring pulmonary infections Cardiovascular/peripheral vascular: No chest pain, no palpitations, no edema, no shortness of breath Gastrointestinal: No new onset incontinence, normal bowel movements reported Genitourinary: No new onset incontinence Musculoskeletal: Neck pain Psychiatric: [Normal mood/affect] Neurological: [Denies weakness in extremities], [denies balance issues] Objective:: Physical Exam: General: Alert and oriented x3, no acute distress, pleasant and cooperative Lungs: Respirations even and unlabored, symmetrical chest expansion Eyes: PERRL Musculoskeletal: Flexion and extension of cervical [spine] somewhat guarded secondary to pain, [antalgic gait noted] Neurological: Speech clear, no gross sensory deficit Assessment:: Degenerative disc disease of cervical spine with cervical radiculopathy symptoms, chronic neck pain Plan:: Patient is experiencing significant pain in his neck and limited range of motion of his cervical spine during today's visit. I have discussed with the patient regarding doing a repeat cervical epidural steroid injection. Risk and benefits were discussed with the patient. He would like to proceed forward with this plan of care. He is not on any blood thinners. I will also order the patient a 2-week dose of diclofenac 75 mg twice daily. Patient has been counseled to take this medication with food and discontinue all other NSAIDs while using this medication. Patient has been counseled to continue to monitor his blood glucose and take his diabetes medication as prescribed. We will schedule the patient for a [facility] C6-C7. Patient has been instructed to contact the clinic with any concerns before the next appointment. Dr. Colin has reviewed this note and agrees with this plan of care. This note was dictated using voice recognition software and make contain errors or omissions. PFSH PFSH Social History Smoking Status: Never smoker alcohol intake: never substance use type: denies use current occupational status: other Travel in the last 8 weeks: None household members: spouse housing: house current occupational exposures/hazards: No caffeine: Yes
== END | disposition home or self-care (01) ==
PROVIDERS: Visit Provider Nurse Practitioner Family
DX: M50.123 Cervical disc disorder at C6-C7 level with radiculopathy (principal); G89.29 Other chronic pain
CPT/HCPCS: 99212; G0463

== ENCOUNTER 2022-08-14 13:12 | Day surgery (SDC) | payer MEDICARE, OTHER, SELFPAY ==
[2022-08-14 13:15] VITALS: BP 162/92; PULSE 79; RESP 18; TEMP 36.3; O2SAT 97; BMI 32.3
[2022-08-14 13:35] VITALS: BP 159/81; PULSE 81; RESP 18; O2SAT 97
[2022-08-14 13:36] VITALS: BP 159/81; PULSE 81; RESP 18; O2SAT 97
[2022-08-14 13:36] LABS: POC Glucose,Bedside 133 (70-110)
[2022-08-14 13:50] VITALS: BP 148/69; PULSE 75; RESP 20
--- NOTE | 2022-08-25 13:44 | P.PCN_ITS ---
Procedure Date: 08/14/22 Time: 13:15 Anesthesiologist:: Lion Hinds CRNA Complications:: None Pre-procedure Diagnosis:: Cervical degenerative disc disease. Cervical radiculopathy Post-procedure Diagnosis:: Same. Indications for Procedure:: Patient is a pleasant 61-year-old male that comes our clinic today for cervical epidural steroid injection. Patient describes posterior cervical neck pain with flexion and/or extension left and right rotation. Also complains of bilateral shoulder and arm radicular symptoms at times. Procedure Details:: Procedure:Cervical epidural steroid injection Informed consent was obtained and the risks and benefits of the procedure were explained to the patient. The patient was taken to the procedure room and noninvasive monitors placed, including noninvasive blood pressure cuff and pulse oximeter. The neck was prepped using Chloraprep as a cleansing solution. The C6- C7 interspace was viewed using fluroscopy. The skin and subcutaneous tissues were anesthetized using lidocaine 1.5% and a 25-gauge needle. After this an 18- gauge Touhy epidural needle was placed into the C6-C7 interspace under fluroscopy guidance and advanced using loss of resistance to air until the epidural space was encountered. After confirmation of needle placement in the epidural space using contrast dye, a solution containing normal saline, 2 mL and Depo-Medrol 80 mg was incrementally injected into the cervical epidural space.~ The patient tolerated the procedure well with no complications. The patient was observed in the Pain Clinic and then discharged home neurologically intact. Plan and Disposition:: Patient was discharged without incident.
== END 2022-08-14 13:51 | disposition home or self-care (01) ==
LOC: SC.PAINP 13:12
PROVIDERS: PCP Family Medicine; Visit Provider Nurse Anesthetist, Certified Registered
DX: M50.123 Cervical disc disorder at C6-C7 level with radiculopathy (principal); Z79.899 Other long term (current) drug therapy; E11.9 Type 2 diabetes mellitus without complications
CPT/HCPCS: 62321; 82962; J1040; Q9966

== ENCOUNTER → 2022-08-31 10:32 | Outpatient (POV) | payer MEDICARE, OTHER, SELFPAY ==
[2022-08-31 10:39] VITALS: BP 159/82; PULSE 77; RESP 18; O2SAT 96; BMI 33.0
--- NOTE | 2022-08-31 11:03 | A.OFFVIS_ITS ---
[facility] Pain Management SOAP Note Subjective:: Patient is a pleasant 61-year-old male who presents today for follow-up of cervical epidural steroid injection at C6-C7 on 08/14/2022. We are currently treating the patient for degenerative disc disease of cervical spine with cervical radiculopathy symptoms, chronic neck pain. Today the patient rates his pain a 4 out of 10. Patient states that he has had at least 50 to 60% relief following this last injection and feels like it is still providing some additional improvement. Patient was previously given diclofenac 75 mg twice daily however the patient states that he had 2 to 3 days of stomach upset that was caused from this medication. Patient states he did take it with food and it continues to be an issue. Patient does use extra strength Tylenol to provide some additional relief of his symptoms. Patient denies any new trauma or injury. Patient denies any change in location or type of pain he experiences. Patient's Jay is [phone]. It has been reviewed and appropriate. Review of Systems: General: No recent weight changes, no fever, no sleep disturbances Respiratory: No cough, no shortness of air, no recurring pulmonary infections Cardiovascular/peripheral vascular: No chest pain, no palpitations, no edema, no shortness of breath Gastrointestinal: No new onset incontinence, normal bowel movements reported Genitourinary: No new onset incontinence Musculoskeletal: Neck pain Psychiatric: [Normal mood/affect] Neurological: [Denies weakness in extremities], [denies balance issues] Objective:: Physical Exam: General: Alert and oriented x3, no acute distress, pleasant and cooperative Lungs: Respirations even and unlabored, symmetrical chest expansion Eyes: PERRL Musculoskeletal: Flexion and extension of cervical [spine] somewhat guarded secondary to pain, [antalgic gait noted] Neurological: Speech clear, no gross sensory deficit Assessment:: Degenerative disc disease cervical spine with cervical radiculopathy symptoms, chronic neck pain Plan:: Patient continues to experience significant pain in his neck with radiating symptoms into his bilateral upper extremities. I will order the patient tizanidine 4 mg at bedtime and provide a 14-day supply of this medication. I will also order the patient a compounding cream at today's visit. We will follow-up in 2 weeks for reevaluation of symptoms, medication refill if indicated and follow-up. Patient has been instructed to contact the clinic with any concerns before the next appointment. Dr. Colin has reviewed this note and agrees with this plan of care. This note was dictated using voice recognition software and make contain errors or omissions. [facility] Disclaimer: The information contained in this section may have been updated after the patient was seen, as this information can be updated by other users. Medical History (Updated 08/14/22 @ 13:21 by Danni Benavidez RN) Diabetes mellitus, type 2 H/O carpal tunnel syndrome History of chest pain Sleep apnea Surgical History (Updated 08/14/22 @ 13:21 by Danni Benavidez RN) H/O discectomy History of cholecystectomy Family History (Updated 08/14/22 @ 13:22 by Danni Benavidez RN) Other Lung cancer Social History (Updated 08/14/22 @ 13:19 by Danni Benavidez RN) Smoking Status: Never smoker alcohol intake: never substance use type: denies use current occupational status: other Travel in the last 8 weeks: None household members: spouse housing: house current occupational exposures/hazards: No caffeine: Yes
== END | disposition home or self-care (01) ==
PROVIDERS: PCP Family Medicine; Visit Provider Nurse Practitioner Family
DX: M50.123 Cervical disc disorder at C6-C7 level with radiculopathy (principal); Z79.899 Other long term (current) drug therapy
CPT/HCPCS: 99212; G0463

== ENCOUNTER → 2022-09-17 11:03 | Outpatient (POV) | payer MEDICARE, OTHER, SELFPAY ==
[2022-09-17 11:47] VITALS: BP 143/77; PULSE 79; RESP 18; O2SAT 97; BMI 33.0
--- NOTE | 2022-09-17 15:00 | EXP.PAIN.SOA ---
[facility] Pain Management SOAP Note Subjective:: Patient is a pleasant 62-year-old male who presents today for follow up. Patient is current being treated for degenerative disc disease of the cervical spine with cervical radiculopathy symptoms, chronic neck pain. We have been managing this patient with injective therapy. He had a cervical epidural steroid injection at C6-C7 on 08/14/2022. After this injection, patient states that he's had around 50-60% relief. He has been able to increase his activity since the injection. Denies any issues. He is still having some pain in his neck. He has been taking tizanidine that is helping. He also uses a compounding cream. He rates his pain a 6 out of 10. Jay appropriate. Review of Systems: General: No recent weight changes, no fever, no sleep disturbances Respiratory: No cough, no shortness of air, no recurring pulmonary infections Cardiovascular/peripheral vascular: No chest pain, no palpitations, no edema, no shortness of breath Gastrointestinal: No new onset incontinence, normal bowel movements reported Genitourinary: No new onset incontinence Musculoskeletal: Neck pain Psychiatric: [Normal mood/affect] Neurological: [Denies weakness in extremities], [denies balance issues] Objective:: Physical Exam: General: Alert and oriented x3, no acute distress, pleasant and cooperative Lungs: Respirations even and unlabored, symmetrical chest expansion Eyes: PERRL Musculoskeletal: Flexion and extension of cervical [spine] somewhat guarded secondary to pain, [antalgic gait noted] Neurological: Speech clear, no gross sensory deficit Assessment:: Degenerative disc disease of the cervical spine with cervical radiculopathy symptoms, chronic pain Plan:: Patient had significant relief of around 50-60% after his cervical epidural steroid injection at C6-C7 on 08/14/2022. The injection before this most recent one lasted him for about a year. He feels like he is still having some pain in his neck. Will schedule patient for a repeat GRANT C6-C7. Pt is not on any blood thinners. Will continue tizanidine. Patient has been instructed to contact the clinic with any concerns before the next appointment. Dr. Colin has reviewed this note and agrees with this plan of care. This note was dictated using voice recognition software and make contain errors or omissions. [facility] Disclaimer: The information contained in this section may have been updated after the patient was seen, as this information can be updated by other users. Medical History (Updated 08/14/22 @ 13:21 by Danni Benavidez RN) Diabetes mellitus, type 2 H/O carpal tunnel syndrome History of chest pain Sleep apnea Surgical History (Updated 08/14/22 @ 13:21 by Danni Benavidez RN) H/O discectomy History of cholecystectomy Family History (Updated 08/14/22 @ 13:22 by Danni Benavidez RN) Other Lung cancer Social History (Updated 08/14/22 @ 13:19 by Danni Benavidez RN) Smoking Status: Never smoker alcohol intake: never substance use type: denies use current occupational status: retired Travel in the last 8 weeks: None household members: spouse housing: house current occupational exposures/hazards: No caffeine: Yes
== END ==
PROVIDERS: PCP Family Medicine; Visit Provider Student in an Organized Health Care Education/Training Program
DX: M50.123 Cervical disc disorder at C6-C7 level with radiculopathy (principal); G89.29 Other chronic pain
CPT/HCPCS: 99212; G0463

== ENCOUNTER → 2023-09-03 15:53 | Outpatient (CLI) | payer MEDICARE, OTHER, SELFPAY ==
--- NOTE | 2023-09-03 16:03 | XR_ITS ---
FINAL REPORT CLINICAL HISTORY: ACUTE PAIN OF RIGHT SHOULDER COMPARISON: None FINDINGS: RIGHT SHOULDER Three views demonstrate no acute fracture or dislocation. There is mild AC joint and mild glenohumeral joint degenerative change. The visualized bony structures are well aligned. No soft tissue abnormality is seen. IMPRESSION: No acute process. Reviewed, Interpreted and Dictated by Vishal Garcia III, MD Transcribed by Danni Dickerson Authenticated and [facility]
== END ==
PROVIDERS: PCP Family Medicine; Visit Provider Family Medicine
DX: M25.511 Pain in right shoulder (principal)
CPT/HCPCS: 73030

== ENCOUNTER 2024-02-10 17:16 | Emergency (ER) | payer MEDICARE, SELFPAY ==
[2024-02-10 17:17] VITALS: BP 168/93; PULSE 78; RESP 14; TEMP 36.8; O2SAT 96; BMI 32.3
[2024-02-10 17:31] VITALS: BP 184/71; PULSE 79; O2SAT 94
--- NOTE | 2024-02-10 17:52 | PC.NURSE ---
US of bladder showing >600ml. notified. Awaiting orders.
--- NOTE | 2024-02-10 17:59 | HMH.EDGENADL ---
Discharge Plan Disposition Patient Disposition: Home, Self-Care Condition: Good Prescriptions Prescriptions: No Action omeprazole 40 mg capsule,delayed release(DR/EC) 40 mg PO QDAY topiramate [Topamax] 25 mg tablet 25 mg PO QDAY propranolol 120 MG capsule,extended release 24 hr 120 mg PO QDAY metformin 850 MG tablet 750 mg PO DAILY tamsulosin 0.4 MG capsule 0.4 mg PO DAILY furosemide 20 MG tablet 20 mg PO DAILY pramipexole 0.75 MG tablet extended release 24 hr 1 mg PO DAILY tizanidine [Zanaflex] 4 mg tablet 4 mg PO HS diclofenac sodium [diclofenac sodium] 75 mg tablet,delayed release (DR/EC) 75 mg PO BID Referrals Follow up/Referrals: Shaun Flowers MD [Staff Physician] - See instructions Ryne Bergman MD [Primary Care Provider] - See instructions Activity Restrictions/Add. Instructions Additional Instructions/Restrictions: You were evaluated in the emergency department today. You have an enlarged prostate, which I feel is the reason that you are unable to urinate. Please follow-up very closely with urology. See attached catheter care instructions. Return to the emergency department for new or worsening symptoms. Clinical Impressions Clinical Impression: Acute urinary retention, Enlarged prostate Instructions Patient Instructions: How to Care for Your Schwartz Catheter -- Male, DI for Urinary Retention in Men Discharge ED Provider: Nicole Bernstein General Adult HPI General Chief complaint: Urogenital-Male Stated complaint: unable to pee Time Seen by Provider: 02/10/24 17:44 Mode of Arrival: Ambulatory Source of Information: Patient Limitations: No Limitations Description of Symptoms (Recalled from ER Triage Doc. by RN): Pt c/o unable to urinate for the past few hours . Pt reports an urge to void but is unable other than dribbles. Pt also reports left flank pain as well. Denies N/V/D, fevers, or other complaints. History of Present Illness HPI narrative: This patient is a 63-year-old male who reports a history of hypertension and into the emergency department for evaluation with concern for inability to urinate. He notes that for the last 4 hours, he has been unable to urinate despite feeling the pain and pressure as well as urge to void. He states that he only gets out small dribbles. He also has some left flank pain. He notes that he has had some trouble urinating all day, but it completely stopped about 4 hours ago. He has been having diarrhea for few days and has felt generally unwell, but no other concerns noted. He denies any fevers, chills, nausea, vomiting, or other issues. He denies any prior urologic evaluation and denies any known history of prostate issues. He denies any history of urinary issues in the past. Related Data Home Medications Medication Instructions Recorded Confirmed omeprazole 40 mg capsule,delayed 40 mg PO QDAY stomach 10/05/17 09/17/22 release topiramate 25 mg tablet (Topamax) 25 mg PO QDAY STILES 10/05/17 09/17/22 propranolol 120 mg capsule,24 120 mg PO QDAY bp 04/03/19 09/17/22 hr,extended release furosemide 20 mg tablet 20 mg PO DAILY Fluid 02/28/21 09/17/22 metformin 850 mg tablet 750 mg PO DAILY Diabetes 02/28/21 09/17/22 pramipexole 0.75 mg 1 mg PO DAILY leg cramps 02/28/21 09/17/22 tablet,extended release 24 hr tamsulosin 0.4 mg capsule 0.4 mg PO DAILY prostate 02/28/21 09/17/22 diclofenac sodium 75 mg 75 mg PO BID Pain 08/14/22 09/17/22 tablet,delayed release tizanidine 4 mg tablet (Zanaflex) 4 mg PO HS MUSCLES 09/17/22 09/17/22 Allergies Allergy/AdvReac Type Severity Reaction Status Date / Time morphine [MORPHINE] Allergy Unknown Verified 08/14/22 13:15 [facility] Disclaimer: The information contained in this section may have been updated after the patient was seen, as this information can be updated by other users. Medical History H/O carpal tunnel syndrome Diabetes mellitus, type 2 Sleep apnea History of chest pain Surgical History H/O discectomy History of cholecystectomy Family History Other Lung cancer Social History Smoking Status: Never smoker alcohol intake: never substance use type: denies use current occupational status: retired Travel in the last 8 weeks: None household members: spouse housing: house current occupational exposures/hazards: No caffeine: Yes ROS Obtained: Yes All systems reviewed & no additional complaints except as documented Physical Exam General General appearance: alert and in no apparent distress Head Head exam: atraumatic and normocephalic Eye Eye exam: Present normal appearance, PERRL and EOMI ENT ENT exam: Present normal exam, normal oropharynx, mucous membranes moist and normal external ear exam Neck Neck exam: Present normal inspection, full ROM and trachea midline; Absent tenderness Chest Chest inspection: Present normal inspection and symmetric chest wall rise; Absent tenderness Respiratory Respiratory exam: Present normal lung sounds bilaterally; Absent respiratory distress, wheezes, stridor or accessory muscle use Cardiovascular Cardiovascular exam: Present regular rate and normal rhythm Abdominal Exam Abdominal exam: Present soft, distention and tenderness (Suprapubic distention and fullness); Absent guarding, rebound or rigidity Extremities Exam Extremities exam: Present normal inspection, full ROM and normal capillary refill; Absent tenderness or edema Back Exam Back exam: Present normal inspection and full ROM; Absent tenderness Neurological Exam Neurological exam: Present alert, oriented X3, CN II-XII intact and normal gait; Absent motor sensory deficit Psychiatric Psychiatric exam: Present normal affect and normal mood Skin Skin exam: Present warm and dry Medical Decision Making Medical Records Medical records reviewed: Yes I reviewed the patient's medical records. Jay Inquiry Pt receiving controlled substance: No Vital Signs: 02/10/24 17:17 02/10/24 17:31 02/10/24 20:00 Temperature 98.2 F 98.2 F Temperature Source Oral Oral Pulse Rate 79 72 Pulse Rate [Right Radial] 78 Respiratory Rate 14 19 Blood Pressure 184/71 H 129/78 Blood Pressure [Right Arm] 168/93 H Blood Pressure Mean 108 Blood Pressure Mean [Right Arm] 118 Blood Pressure Source Automatic Cuff Blood Pressure Source [Right Arm] Automatic Cuff Blood Pressure Position Sitting Blood Pressure Position [Right Arm] Sitting 02 Sat by Pulse Oximetry 96 94 L Oxygen Delivery Method Room Air Room Air Room Air Lab Data Lab results reviewed: Yes I reviewed the patient's lab results. Lab Results 02/10/24 18:21: WBC 9.1, RBC 4.51 L, Hgb 13.7 L, Hct 43.5, MCV 96.5 H, MCH 30.4, MCHC 31.5 L, RDW 13.5, Plt Count 217, MPV 8.2, Neut % (Auto) 71.1, Lymph % (Auto) 19.7, [place] % (Auto) 5.1, Eos % (Auto) 2.9, Baso % (Auto) 1.2, Neut # (Auto) 6.5, Lymph # (Auto) 1.8, [place] # (Auto) 0.5, Eos # (Auto) 0.3, Baso # (Auto) 0.1, Sodium 140, Potassium 3.7, Chloride 105, Carbon Dioxide 29, Anion Gap 9.7, BUN 15, Creatinine 0.90, Estimated Creat Clear 106, Estimated GFR 85, Est GFR ( Amer) 102, Glucose 137 H, Calcium 9.4, Total Bilirubin 0.5, AST 30, ALT 31, Alkaline Phosphatase 83, Total Protein 7.1, Albumin 4.2, Globulin 2.9, Albumin/Globulin Ratio 1.4 02/10/24 18:36: Urine Color Yellow, Urine Appearance Clear, Urine pH 7.0, Ur Specific [place] 1.020, Urine Protein Negative, Urine Glucose (UA) 2+, Urine Ketones Negative, Urine Blood 3+, Urine Nitrate Negative, Urine Bilirubin Negative, Urine Urobilinogen 0.2, Ur Leukocyte Esterase Negative, Urine RBC 10-20, Urine WBC None, Ur Squamous Epith Cells Occasional, Urine Bacteria None 02/10/24 18:21 02/10/24 18:21 Orders (Tests/Meds): ED MEDICATIONS Discontinued Medications Generic Name Dose Route Start Last Admin Trade Name Christopher PRN Reason Stop Dose Admin Iopamidol 75 ml 02/10/24 19:13 02/10/24 19:13 Iopamidol-370 (76%);100ml Bottle IV 02/10/24 19:14 75 ml ONCE ONE Administration Lidocaine HCl 1 ml 02/10/24 18:26 02/10/24 18:28 Lidocaine 2% Urojet 10ml TP 02/10/24 18:27 1 ml ONCE ONE Administration Ondansetron HCl 4 mg 02/10/24 18:02 02/10/24 18:28 Ondansetron 4mg/2ml Vial IV 02/10/24 18:03 4 mg ONCE ONE Administration Oxycodone HCl 5 mg 02/10/24 18:03 02/10/24 18:28 Oxycodone 5mg Immediate Release Tablet PO 02/10/24 18:04 5 mg ONCE ONE Administration Sodium Chloride 10 ml 02/10/24 19:13 02/10/24 19:13 Sodium Chloride 0.9% 10ml Syr (Rad Only) IV 02/10/24 19:14 10 ml ONCE ONE Administration ORDERS Category Date Time Status CT abdomen pelvis w con Stat Cat Scan 02/10/24 18:01 Completed Complete Blood Count Auto Diff Stat Lab 02/10/24 18:21 Completed Comprehensive Metabolic Panel Stat Lab 02/10/24 18:21 Completed Urinalysis and Microscopic Stat Lab 02/10/24 18:36 Completed Urine Culture Stat Micro 02/10/24 18:36 Received Medical Decision Narrative: In summary, this patient is a 63-year-old male presenting to the Emergency Department for evaluation of difficulty urinating. Differential diagnoses considered include but are not limited to BPH, prostate malignancy, constipation, colitis, cystitis, pyelonephritis. Ruling out the most morbid conditions drove assessment. It should be noted patient's history includes hypertension and diabetes which are not at goal therapy. This complicates all aspects of care by increasing patient's risk for morbidity. On exam, the patient is uncomfortable with suprapubic tenderness and fullness. Workup included CBC, CMP, urinalysis, urine culture, and bladder scan. Bladder scan demonstrated greater than 600 mL postvoid residual. Given this, decision was made with patient to place a Schwartz catheter. CT abdomen pelvis with IV contrast was ordered. I independently interpreted CT scan prior to the radiologist read and noted enlarged prostate. Please see their read for final interpretation. Labs were obtained that demonstrated hematuria without other acute concern abnormalities. I feel the hematuria is likely result of difficulty with Schwartz catheter placement secondary to enlarged prostate. On reassessment, patient had good improvement after administration of Schwartz catheter. He is draining urine without difficulty. No other findings noted on CT scan aside from prostate enlargement per radiology read. Given this, I feel that he is appropriate for discharge home with Schwartz and leg bag as well as close follow-up with urology. He was given information for urology follow-up as well as strict return precautions. He was discharged after all questions were answered. Critical Care Critical Care Time Critical Care Time: No
--- NOTE | 2024-02-10 18:01 | CT_ITS ---
PROCEDURE INFORMATION: Exam: CT Abdomen And Pelvis With Contrast Exam date and time: 02/10/2024 7:13 PM Age: 63 years old Clinical indication: Abdominal pain; Flank; Left; Additional info: Acute urinary retention, suprapubic/l flank pain TECHNIQUE: Imaging protocol: Computed tomography of the abdomen and pelvis with contrast. Radiation optimization: All CT scans at this facility use at least one of these dose optimization techniques: automated exposure control; mA and/or kV adjustment per patient size (includes targeted exams where dose is matched to clinical indication); or iterative reconstruction. Contrast material: ISOVUE; Contrast volume: 75 ml; Contrast route: IV; COMPARISON: No relevant prior studies available. FINDINGS: Tubes, catheters and devices: Urinary bladder is catheterized. Lungs: Multiple nonspecific pulmonary nodules. For follow-up purposes, examples include: 5 mm right middle lobe nodule image 14 series 3, 3 mm right lower lobe nodule image 29 series 3, and 3 mm lingula nodule image 5 series 3. Liver: Low attenuation hepatic lesions measuring up to 7 mm in diameter are incompletely characterized, but are likely cysts. No followup imaging is recommended. Gallbladder and bile ducts: Gallbladder is absent. Pancreas: Moderate pancreatic atrophy. Spleen: Normal. No splenomegaly. Adrenal glands: Normal. No mass. Kidneys and ureters: Normal. No hydronephrosis. Stomach and bowel: Mild sigmoid diverticulosis without diverticulitis. Appendix: Unremarkable appendix. Intraperitoneal space: Unremarkable. No free air. No significant fluid collection. Vasculature: The arteries demonstrate mild atherosclerotic disease. Lymph nodes: Unremarkable. No enlarged lymph nodes. Urinary bladder: Unremarkable as visualized. Reproductive: Moderate to marked prostate enlargement. Bones/joints: Unremarkable. No acute fracture. Soft tissues: Tiny fat containing umbilical hernia. Other findings: Stigmata of old granulomatous disease. IMPRESSION: 1. No acute findings. 2. Urinary bladder is catheterized. Please exclude infection clinically. 3. Moderate to marked prostate enlargement. Consider outpatient malignancy screening. 4. Pulmonary nodules measuring up to 5 mm. For patients at low risk (minimal or absent history of smoking and of other known risk factors), no routine follow-up is indicated. For patients at high risk (history of smoking or of other known risk factors), consider optional CT Chest at 12 months. (Reference: Jeanie) REFERENCES: Jeanie Elizabeth et al. Guidelines for Management of Incidental Pulmonary Nodules Detected on CT Images: From the Fleischner Society 2017. Radiology. 2017;284(1):228-243.
[2024-02-10 18:28] LABS: Basophils # 0.1 K/mm3 (0-0.2); Basophils % 1.2 % (0.1-2.0); Eosinophils # 0.3 K/mm3 (0.0-0.4); Eosinophils % 2.9 % (0.1-12.0); Hematocrit 43.5 % (42.0-52.0); Hemoglobin 13.7 g/dL (14.1-18.0); Lymphocytes # 1.8 K/mm3 (0.7-4.5); Lymphocytes % 19.7 % (10-50); Mean Corpuscular HGB Conc 31.5 g/dL (31.8-35.4); Mean Corpuscular Hemoglobin 30.4 pg (27.0-31.2); Mean Corpuscular Volume 96.5 fl (80-94); Mean Platelet Volume 8.2 fl (7.4-10.4); Monocytes # 0.5 K/mm3 (0.1-1.0); Monocytes % 5.1 % (1.7-9.3); Neutrophils # 6.5 K/mm3 (1.8-7.8); Neutrophils % 71.1 % (37.0-80.0); Platelet Count 217 K/mm3 (142-424); Red Blood Count 4.51 M/mm3 (4.60-6.20); Red Cell Distribution Width 13.5 % (11.5-17.5); White Blood Count 9.1 K/mm3 (4.8-10.8)
[2024-02-10] MEDS: ONDANSETRON 4MG/2ML VIAL 4 MG IV (18:28)
[2024-02-10] MEDS: OXYCODONE 5MG IMMEDIATE RELEASE TABLET 5 MG PO (18:28)
[2024-02-10] MEDS: LIDOCAINE 2% UROJET 10ML TP (18:28)
[2024-02-10 18:34] LABS: Chloride 105 mmol/L (98-107); Potassium 3.7 mmoL/L (3.5-5.1); Sodium 140 mmol/L (136-145)
[2024-02-10 18:36] LABS: Alanine Aminotransferase 31 U/L (12-78); Aspartate Amino Transferase 30 U/L (17-59); Blood Urea Nitrogen 15 mg/dl (9-20); Creatinine Clearance Estimated 106 mL/min (50-200); Estimated Glomerular Filt Rate 85 ml/min (>60); GFR (African American) 102 ML/MIN (>60)
[2024-02-10 18:37] LABS: Albumin Level 4.2 g/dl (3.5-5.0); Albumin/Globulin Ratio 1.4 (1.1-1.8); Alkaline Phosphatase 83 U/L (38-126); Anion Gap 9.7 mEq/L (5-15); Bilirubin,Total 0.5 mg/dl (0.2-1.3); Calcium 9.4 mg/dl (8.4-10.2); Carbon Dioxide 29 mmol/L (22.0-30.0); Globulin 2.9 g/dL (1.3-3.2); Glucose 137 mg/dl (74-100); Total Protein,Serum 7.1 g/dl (6.3-8.2)
[2024-02-10 18:43] LABS: Microscopic, Urine URINE MICROSCOPIC (MICROSCOPIC)
[2024-02-10 18:44] LABS: Appearance,Urine CLEAR (Clear); Bilirubin,Urine Negative (Negative); Blood, Urine 3+ (Negative); Color,Urine YELLOW (Yellow); Glucose,Urine (UA) 2+ (Negative); Ketones,Urine Negative (Negative); Leukocyte Esterase,Urine Negative (Negative); Nitrate,Urine Negative (Negative); Protein,Urine Negative (Negative); Urobilinogen,Urine 0.2 EU/dl (0.2)
[2024-02-10 19:03] LABS: Squamous Epithelial Cell,Urine Occasional #/hpf (0-5)
[2024-02-10] MEDS: SODIUM CHLORIDE 0.9% 10ML SYR (RAD ONLY) 10 ML IV (19:13)
[2024-02-10] MEDS: IOPAMIDOL-370 (76%);100ML BOTTLE 75 ML IV (19:13)
[2024-02-10 20:00] VITALS: BP 129/78; PULSE 72; RESP 19; TEMP 36.8; O2SAT 98
== END 2024-02-10 20:08 | disposition home or self-care (01) ==
PROVIDERS: Emergency Provider Emergency Medicine; PCP Family Medicine
DX: R33.9 Retention of urine, unspecified (principal); N40.0 Benign prostatic hyperplasia without lower urinary tract symptoms; I10 Essential (primary) hypertension; E11.9 Type 2 diabetes mellitus without complications; Z79.84 Long term (current) use of oral hypoglycemic drugs
CPT/HCPCS: 51702; 74177; 80053; 81001; 85025; 87086; 96374; 99284; J2405; Q9967

== ENCOUNTER 2024-02-11 15:25 | Emergency (ER) | payer MEDICARE, SELFPAY ==
[2024-02-11 15:27] VITALS: BP 140/73; PULSE 78; RESP 16; TEMP 37.2; O2SAT 96; BMI 32.3
[2024-02-11 16:05] VITALS: BP 140/73; PULSE 79; O2SAT 94
--- NOTE | 2024-02-11 16:12 | HMH.EDGENADL ---
Discharge Plan Disposition Patient Disposition: Home, Self-Care Condition: Good Prescriptions Prescriptions: New oxybutynin chloride 5 mg tablet 5 mg PO Q12H PRN (Reason: bladder spasms) Qty: 14 0RF No Action omeprazole 40 mg capsule,delayed release(DR/EC) 40 mg PO QDAY topiramate [Topamax] 25 mg tablet 25 mg PO QDAY propranolol 120 MG capsule,extended release 24 hr 120 mg PO QDAY metformin 850 MG tablet 750 mg PO DAILY tamsulosin 0.4 MG capsule 0.4 mg PO DAILY furosemide 20 MG tablet 20 mg PO DAILY pramipexole 0.75 MG tablet extended release 24 hr 1 mg PO DAILY tizanidine [Zanaflex] 4 mg tablet 4 mg PO HS diclofenac sodium [diclofenac sodium] 75 mg tablet,delayed release (DR/EC) 75 mg PO BID Referrals Follow up/Referrals: Ryne Bergman MD [Primary Care Provider] - See instructions Activity Restrictions/Add. Instructions Additional Instructions/Restrictions: You were evaluated in the emergency department today. Oxybutynin was sent in to have as needed for bladder spasms. Please follow-up closely with urology. Return to the emergency department for new or worsening symptoms. Clinical Impressions Clinical Impression: Complication of Schwartz catheter Instructions Patient Instructions: How to Care for Your Schwartz Catheter -- Male Discharge ED Provider: Nicole Bernstein General Adult HPI General Chief complaint: Recheck/Abnormal Lab/Rx Stated complaint: F/C leaking Time Seen by Provider: 02/11/24 16:00 History of Present Illness HPI narrative: This patient is a 63-year-old male with history of hypertension, GERD, NATACHA, and obesity as well as recent diagnosis of enlarged prostate yesterday in the setting of acute urinary retention presenting with concern for leaking around his Schwartz catheter. Patient reports that things were initially fine when he went home yesterday after Schwartz catheter placement in the ED here, however this morning he had a small amount of urine leaking. Its become more severe in the afternoon and he is having bladder spasms and pain as well. He also notes that there is blood in his Schwartz catheter bag. No other concerns noted at this time. Related Data Home Medications Medication Instructions Recorded Confirmed omeprazole 40 mg capsule,delayed 40 mg PO QDAY stomach 10/05/17 09/17/22 release topiramate 25 mg tablet (Topamax) 25 mg PO QDAY STILES 10/05/17 09/17/22 propranolol 120 mg capsule,24 120 mg PO QDAY bp 04/03/19 09/17/22 hr,extended release furosemide 20 mg tablet 20 mg PO DAILY Fluid 02/28/21 09/17/22 metformin 850 mg tablet 750 mg PO DAILY Diabetes 02/28/21 09/17/22 pramipexole 0.75 mg 1 mg PO DAILY leg cramps 02/28/21 09/17/22 tablet,extended release 24 hr tamsulosin 0.4 mg capsule 0.4 mg PO DAILY prostate 02/28/21 09/17/22 diclofenac sodium 75 mg 75 mg PO BID Pain 08/14/22 09/17/22 tablet,delayed release tizanidine 4 mg tablet (Zanaflex) 4 mg PO HS MUSCLES 09/17/22 09/17/22 Previous Rx's Medication Instructions Recorded oxybutynin chloride 5 mg tablet 5 mg PO Q12H PRN bladder spasms 02/11/24 #14 tabs Allergies Allergy/AdvReac Type Severity Reaction Status Date / Time morphine [MORPHINE] Allergy Unknown Verified 08/14/22 13:15 [facility] Disclaimer: The information contained in this section may have been updated after the patient was seen, as this information can be updated by other users. Medical History H/O carpal tunnel syndrome Diabetes mellitus, type 2 Sleep apnea History of chest pain Surgical History H/O discectomy History of cholecystectomy Family History Other Lung cancer Social History Smoking Status: Never smoker alcohol intake: never substance use type: denies use current occupational status: retired Travel in the last 8 weeks: None household members: spouse housing: house current occupational exposures/hazards: No caffeine: Yes ROS Obtained: Yes All systems reviewed & no additional complaints except as documented Physical Exam General General appearance: alert and in no apparent distress Head Head exam: atraumatic and normocephalic Eye Eye exam: Present normal appearance, PERRL and EOMI ENT ENT exam: Present normal exam, normal oropharynx, mucous membranes moist and normal external ear exam Neck Neck exam: Present normal inspection, full ROM and trachea midline; Absent tenderness Chest Chest inspection: Present normal inspection and symmetric chest wall rise; Absent tenderness Respiratory Respiratory exam: Present normal lung sounds bilaterally; Absent respiratory distress, wheezes, stridor or accessory muscle use Cardiovascular Cardiovascular exam: Present regular rate and normal rhythm Abdominal Exam Abdominal exam: Present soft; Absent distention, tenderness or guarding exam: Present other (Schwartz catheter in place with gross hematuria) Extremities Exam Extremities exam: Present normal inspection, full ROM and normal capillary refill; Absent tenderness or edema Back Exam Back exam: Present normal inspection and full ROM; Absent tenderness Neurological Exam Neurological exam: Present alert, oriented X3, CN II-XII intact and normal gait; Absent motor sensory deficit Psychiatric Psychiatric exam: Present normal affect and normal mood Skin Skin exam: Present warm and dry Medical Decision Making Medical Records Medical records reviewed: Yes I reviewed the patient's medical records. Jay Inquiry Pt receiving controlled substance: No Vital Signs: 02/11/24 15:27 02/11/24 16:05 02/11/24 16:30 Temperature 98.9 F Temperature Source Oral Pulse Rate 79 79 Pulse Rate [Right Radial] 78 Respiratory Rate 16 Blood Pressure 140/73 133/70 Blood Pressure [Right Arm] 140/73 Blood Pressure Mean [Right Arm] 95 Blood Pressure Source Blood Pressure Source [Right Arm] Automatic Cuff Blood Pressure Position Blood Pressure Position [Right Arm] Sitting 02 Sat by Pulse Oximetry 96 94 L 93 L Oxygen Delivery Method Room Air Room Air 02/11/24 17:13 02/11/24 17:13 Temperature 98.9 F 98.9 F Temperature Source Oral Oral Pulse Rate 82 Pulse Rate [Right Radial] 82 Respiratory Rate 16 16 Blood Pressure 138/66 Blood Pressure [Right Arm] 138/66 Blood Pressure Mean [Right Arm] 90 Blood Pressure Source Automatic Cuff Blood Pressure Source [Right Arm] Automatic Cuff Blood Pressure Position Sitting Blood Pressure Position [Right Arm] Sitting 02 Sat by Pulse Oximetry 93 L Oxygen Delivery Method Room Air Room Air Lab Data Lab results reviewed: Yes I reviewed the patient's lab results. Orders (Tests/Meds): ED MEDICATIONS Discontinued Medications Generic Name Dose Route Start Last Admin Trade Name Freq PRN Reason Stop Dose Admin Oxybutynin Chloride 5 mg 02/11/24 16:11 02/11/24 16:20 Oxybutynin 5mg Tab PO 02/11/24 16:12 5 mg ONCE ONE Administration ORDERS Category Date Time Status Urine Culture(cathed specimen) Stat Micro 02/11/24 16:54 Received Medical Decision Narrative: In summary, this patient is a 63-year-old male presenting to the Emergency Department for evaluation of leaking around his Schwartz catheter and bladder spasms. Differential diagnoses considered include but are not limited to Schwartz catheter obstruction, bladder spasms, UTI. Ruling out the most morbid conditions drove assessment. It should be noted patient's history includes obesity and hypertension which may or may not be at goal therapy. This complicates all aspects of care by increasing patient's risk for morbidity. I reviewed patient's past medical records and noted evaluation here yesterday as per HPI with Schwartz catheter placed for enlarged prostate on CT and acute urinary retention. On exam, the patient is well-appearing. He has a Schwartz catheter in place that is draining gross hematuria. Will flush the catheter to see if it could potentially be clotted off. Will also perform bladder scan. Workup included urinalysis and urine culture. Urine culture was sent and is pending. Bladder scan does not demonstrate any acute urinary retention. Patient had improved drainage in the Schwartz after flushing and his spasms significantly improved. At this time, I feel that he is appropriate for discharge with continued plan for outpatient follow-up with urology and primary care. He was given prescription for oxybutynin to take as needed for bladder spasms. Strict return precautions were given. Critical Care Critical Care Time Critical Care Time: No
[2024-02-11] MEDS: OXYBUTYNIN 5MG TAB 5 MG PO (16:20)
[2024-02-11 16:30] VITALS: BP 133/70; PULSE 79; O2SAT 93
--- NOTE | 2024-02-11 16:55 | PC.NURSE ---
pt c/o leaking main cath, assessed and looked that catheter was getting kinked, flushed main with ease, pt tolerated well. Changed out leg bag and lowered bag, discussed with pt and about looking for kinks, verbalized understanding bladder scan was 0, pt denies any feeling of pressure at this time. aware
[2024-02-11 17:13] VITALS: BP 138/66; PULSE 82; RESP 16; TEMP 37.2; O2SAT 93
== END 2024-02-11 17:15 | disposition home or self-care (01) ==
PROVIDERS: Emergency Provider Emergency Medicine; PCP Family Medicine
DX: T83.091A Other mechanical complication of indwelling urethral catheter, initial encounter (principal); N32.89 Other specified disorders of bladder; R31.0 Gross hematuria
CPT/HCPCS: 87086; 99283

== ENCOUNTER 2024-02-14 16:14 | Outpatient (CLI) | payer MEDICARE, SELFPAY ==
[2024-02-14 16:05] LABS: Microscopic, Urine URINE MICROSCOPIC (MICROSCOPIC)
[2024-02-14 16:35] LABS: Appearance,Urine CLOUDY (Clear); Blood, Urine 3+ (Negative); Color,Urine AMBER (Yellow); Glucose,Urine (UA) 2+ (Negative); Ketones,Urine Negative (Negative); Leukocyte Esterase,Urine Negative (Negative); Nitrate,Urine Negative (Negative); Protein,Urine 2+ (Negative); Specific Gravity, Urine >= 1.030 (1.005-1.030); Urobilinogen,Urine 0.2 EU/dl (0.2)
[2024-02-14 17:07] LABS: Bilirubin,Urine 1+ (Negative)
[2024-02-14 17:22] LABS: Bacteria,Urine Trace /lpf; RBC,Urine 50-100 #/hpf (0-3); Squamous Epithelial Cell,Urine Occasional #/hpf (0-5); WBC,Urine Occasional #/hpf (0-3)
== END 2024-02-14 23:59 | disposition home or self-care (01) ==
LOC: LAB.DROPOF 16:15
PROVIDERS: PCP Urology; Visit Provider Urology
DX: R33.8 Other retention of urine (principal); N39.0 Urinary tract infection, site not specified; B95.2 Enterococcus as the cause of diseases classified elsewhere
CPT/HCPCS: 81001; 87086; 87186

== ENCOUNTER 2024-02-18 10:08 | Outpatient (CLI) | payer MEDICARE, SELFPAY ==
[2024-02-18 11:58] LABS: Blood Urea Nitrogen 17 mg/dl (9-20); Estimated Glomerular Filt Rate 97 ml/min (>60); GFR (African American) 117 ML/MIN (>60)
== END 2024-02-18 23:59 | disposition home or self-care (01) ==
LOC: LAB 10:10
PROVIDERS: PCP Family Medicine; Visit Provider Urology
DX: N39.0 Urinary tract infection, site not specified (principal); B95.2 Enterococcus as the cause of diseases classified elsewhere
CPT/HCPCS: 36415; 82565; 84520

== ENCOUNTER 2024-03-17 08:23 | Day surgery (SDC) | payer MEDICARE, SELFPAY ==
[2024-03-17 08:40] VITALS: BP 197/88; PULSE 87; RESP 18; TEMP 36.6; O2SAT 95; BMI 32.2
[2024-03-17 08:45] LABS: POC Glucose,Bedside 180 (70-110)
[2024-03-17] MEDS: LACTATED RINGERS 1000ML 1,000 ML 50 ML IV (09:12)
[2024-03-17] MEDS: LIDOCAINE 2% UROJET 10ML 10 ML (09:12)
--- NOTE | 2024-03-17 09:14 | P.PCN_ITS ---
[facility] Procedure Note Date: 03/17/24 Time: 09:14 Procedure Note:: Preop diagnosis hematuria/urinary retention Postop diagnosis: Hematuria/urinary retention tension/prostate obstruction Operation: Patient was brought to the operating room. He was first catheterized for residual urine and that was submitted for culture and sensitivity. Patient's residual today is 1 ounce. The urethra had been anesthetized with Xylocaine jelly. He then underwent flexible cystoscopy. The anterior urethra is unremarkable. The prostatic urethra is erythematous and friable. The prostatic urethra wants to bleed and this may very well be the source of the hematuria. He has grade 4 obstruction from 4 cm prostatic urethral length from the verumontanum to the bladder neck. The ureteral orifices are normal bilaterally with clear reflux of urine. He has +2 trabeculation throughout the bladder. There is no evidence of bladder stone tumor hemorrhage or infection. The patient's bladder capacity is adequate at 300 cc. He tolerated the procedure well. He very well may notdice imporvement with TURP.
[2024-03-17 09:17] VITALS: BP 155/70; PULSE 78; RESP 16; TEMP 37.1; O2SAT 98
[2024-03-17 09:40] VITALS: BP 163/73; PULSE 80; RESP 16; O2SAT 99
[2024-03-17 15:22] LABS: Microscopic,Cath URINE MICROSCOPIC (MICROSCOPIC)
[2024-03-17 15:32] LABS: Appearance,Urine/Cath CLEAR (Clear); Bilirubin,Cath Negative (Negative); Blood, Urine/Cath TRACE-I (Negative); Color,Urine/Cath YELLOW (Yellow); Glucose,Urine/Cath (UA) Negative (Negative); Ketones,Urine/Cath TRACE (Negative); Leukocyte Esterase,Cath Negative (Negative); Nitrate,Cath Negative (Negative); PH,Urine/Cath 5.5 (5.0-8.5); Protein,Urine/Cath Negative (Negative); Specific Gravity, Urine/Cath >= 1.030 (1.005-1.030); Urobilinogen,Cath 0.2 EU/dl (0.2)
[2024-03-17 16:07] LABS: Bacteria,Urine/Cath TRACE /lpf
== END 2024-03-17 09:40 | disposition home or self-care (01) ==
PROVIDERS: PCP Family Medicine; Visit Provider Urology
PROC: 0TJB8ZZ Inspection of Bladder, Via Natural or Artificial Opening Endoscopic (ICD-10-PCS; CPT 52000; principal; 2024-03-17 09:15)
DX: R31.9 Hematuria, unspecified (principal); R33.9 Retention of urine, unspecified; N40.1 Benign prostatic hyperplasia with lower urinary tract symptoms; E11.9 Type 2 diabetes mellitus without complications
CPT/HCPCS: 52000; 81001; 82962; J7120

== ENCOUNTER 2024-04-15 15:58 | Emergency (ER) | payer MEDICARE, SELFPAY ==
[2024-04-15 16:10] VITALS: BP 195/86; PULSE 70; O2SAT 98
--- NOTE | 2024-04-15 16:10 | ECG_ITS ---
APPROVED REPORT Exam: Resting ECG HR:70 bpm ECG Measurements Heart Rate 70 AXES FL 178 P 32 QRSd 88 QRS 44 QT 390 T 50 QTc 411 Conclusion SINUS RHYTHM POSSIBLE ANTERIOR MYOCARDIAL INFARCTION , OF INDETERMINATE AGE [30 ms Q WAVE IN V3/V4, OR R < 0.2 mV IN V4] ABNORMAL ECG Electronically signed by : CAITIE HALL, 04/16/2024 00:13:42
[2024-04-15 16:14] VITALS: BP 185/86; PULSE 72; RESP 20; TEMP 36.7; O2SAT 98; BMI 33.0
--- NOTE | 2024-04-15 16:33 | XR_ITS ---
PROCEDURE INFORMATION: Exam: XR Chest Exam date and time: 04/15/2024 5:25 PM Age: 63 years old Clinical indication: Shortness of breath; Additional info: SOB x few days TECHNIQUE: Imaging protocol: Radiologic exam of the chest. Views: 1 view. COMPARISON: CT CHEST W CON 10/30/2019 2:35 PM FINDINGS: Lungs: Bilateral perihilar interstitial opacities. Pleural spaces: No pleural effusion. No pneumothorax. Heart/Mediastinum: Cardiomegaly. Bones/joints: Cervical fusion hardware. IMPRESSION: Bilateral perihilar interstitial opacities which may represent pulmonary edema or infection in the acute setting.
--- NOTE | 2024-04-15 16:34 | ED_ITS ---
Discharge Plan Disposition Patient Disposition: Home, Self-Care Prescriptions Prescriptions: New furosemide [Lasix] 40 mg tablet 40 mg PO DAILY Qty: 2 0RF No Action omeprazole 40 mg capsule,delayed release(DR/EC) 40 mg PO QDAY topiramate [Topamax] 25 mg tablet 25 mg PO QDAY tamsulosin 0.4 mg capsule 0.4 mg PO DAILY 90 Days Qty: 180 0RF Rx Instructions: Take one 1/2 hour after meal BID oxybutynin chloride 10 mg tablet extended release 24hr 10 mg PO DAILY Qty: 90 3RF finasteride [Proscar] 5 mg tablet 5 mg PO DAILY Qty: 90 3RF propranolol 120 MG capsule,extended release 24 hr 120 mg PO QDAY metformin 850 MG tablet 750 mg PO DAILY furosemide 20 MG tablet 20 mg PO DAILY pramipexole 0.75 MG tablet extended release 24 hr 1 mg PO DAILY pioglitazone [Actos] 45 mg Tablet 45 mg PO DAILY valsartan 320 mg tablet 160 mg PO DAILY insulin lispro protamin-lispro 100 unit/mL (75-25) Insulin Pen 30 unit SQ DAILY Rx Instructions: 60 UNITS IN AM, 30 UNITS AT NOON, 60 UNITS AT BEDTIME fluoxetine 60 mg Tablet 60 mg PO DAILY potassium chloride 20 mEq Tablet Extended Release 20 meq PO DAILY Ozempic 2 mg/dose (8 mg/3 mL) pen injector 1 mg SQ WEEKLY Referrals Follow up/Referrals: José Luis Flynn MD [Staff Physician] - See instructions Ryne Bergman MD [Primary Care Provider] - See instructions Activity Restrictions/Add. Instructions Additional Instructions/Restrictions: At this time it was felt you are safe to be discharged home. If new or worsening symptoms please do not hesitate to return the emergency department. Please take your medications as prescribed and call and schedule appoint with cardiology on Wednesday. Clinical Impressions Clinical Impression: Breath shortness, CHF (congestive heart failure), Hypokalemia Discharge ED Provider: Jaswant Domingo General Adult HPI General Chief complaint: Allergic Reaction Stated complaint: SOA,high blood pressure 184/89 Time Seen by Provider: 04/15/24 16:05 Mode of Arrival: Ambulatory Source of Information: Patient and Spouse Limitations: No Limitations Description of Symptoms (Recalled from ER Triage Doc. by RN): pt c/o SOA and significant abd bloating. pt reports he started finasteride and oxybutynin on ordered by Dr. Flowers. pt states he started noticing symptoms at this time. pt states the symptoms became way worse on 04/10. pt states at that time he had started itching and developed blisters all along his lower lip. pt reports he stopped the medicatioin on 04/13. pt states he called Dr. Helms office on 04/14 but never heard back. pt states since stopping the medications some of his bloating has decreased and he has been urinating more. upon assessment pt has 2+ edema BLE. pt denies chest pain, N/V/D, or abd pain. History of Present Illness HPI narrative: Patient is a 63-year-old male with past medical history of insulin-dependent diabetes, recently started on tamsulosin and oxybutynin for BPH who presents emergency department for evaluation of shortness of breath. Last week after taking his second doses of these new medications he had diffuse itching and whelps, no vomiting, no chest pain. The whelps have since subsided, his itching has been minimized over the course however he has had persistent shortness of breath throughout the course causing him to present here for continued valuation. He has no chest pain currently, no trauma. Related Data Home Medications Medication Instructions Recorded Confirmed omeprazole 40 mg capsule,delayed 40 mg PO QDAY stomach 10/05/17 04/03/24 release topiramate 25 mg tablet (Topamax) 25 mg PO QDAY STILES 10/05/17 04/03/24 propranolol 120 mg capsule,24 120 mg PO QDAY bp 04/03/19 04/03/24 hr,extended release furosemide 20 mg tablet 20 mg PO DAILY Fluid 02/28/21 04/03/24 metformin 850 mg tablet 750 mg PO DAILY Diabetes 02/28/21 04/03/24 pramipexole 0.75 mg 1 mg PO DAILY leg cramps 02/28/21 04/03/24 tablet,extended release 24 hr fluoxetine 60 mg tablet 60 mg PO DAILY 03/17/24 04/03/24 insulin lispro protamine-lispro 30 unit SQ DAILY 03/17/24 04/03/24 100 unit/mL (75-25) subcutaneous pen pioglitazone 45 mg tablet (Actos) 45 mg PO DAILY 03/17/24 04/03/24 potassium chloride 20 mEq 20 meq PO DAILY 03/17/24 04/03/24 tablet,extended release semaglutide 2 mg/dose (8 mg/3 mL) 1 mg SQ WEEKLY 03/17/24 04/03/24 subcutaneous pen injector (Ozempic) valsartan 320 mg tablet 160 mg PO DAILY 03/17/24 04/03/24 Previous Rx's Medication Instructions Recorded finasteride 5 mg tablet (Proscar) 5 mg PO DAILY #90 tabs 04/03/24 oxybutynin chloride 10 mg 10 mg PO DAILY #90 tabs 04/03/24 tablet,extended release 24 hr tamsulosin 0.4 mg capsule 0.4 mg PO DAILY prostate 90 days 04/03/24 #180 caps furosemide 40 mg tablet (Lasix) 40 mg PO DAILY volume overload #2 04/15/24 tabs Allergies Allergy/AdvReac Type Severity Reaction Status Date / Time morphine [MORPHINE] Allergy Unknown Verified 04/03/24 11:22 [facility] Disclaimer: The information contained in this section may have been updated after the patient was seen, as this information can be updated by other users. Medical History Urinary tract infection Anxiety and depression Hyperlipidemia Hypertension H/O carpal tunnel syndrome Diabetes mellitus, type 2 Sleep apnea History of chest pain Surgical History H/O discectomy History of cholecystectomy Family History Other Bone cancer Kidney failure Lung cancer Social History Smoking Status: Never smoker alcohol intake: never substance use type: denies use current occupational status: retired and disabled Travel in the last 8 weeks: None household members: spouse housing: house current occupational exposures/hazards: No caffeine: Yes ROS Obtained: Yes Systems reviewed as appropriate & no additional complaints except as documented Physical Exam General General appearance: alert and in no apparent distress Head Head exam: atraumatic and normocephalic Eye Eye exam: Present PERRL and EOMI ENT ENT exam: Present mucous membranes moist Neck Neck exam: Present normal inspection Chest Chest inspection: Present normal inspection and symmetric chest wall rise Respiratory Respiratory exam: Present normal lung sounds bilaterally; Absent respiratory distress, wheezes or accessory muscle use Cardiovascular Cardiovascular exam: Present regular rate and normal rhythm Abdominal Exam Abdominal exam: Present soft; Absent tenderness Extremities Exam Extremities exam: Present other (2+ pitting edema bilateral lower extremities.) Neurological Exam Neurological exam: Present alert Psychiatric Psychiatric exam: Present normal affect Skin Skin exam: Present warm and dry Medical Decision Making Jay Inquiry Pt receiving controlled substance: No Vital Signs: 04/15/24 16:10 04/15/24 16:14 Temperature 98.1 F Temperature Source Oral Pulse Rate 70 Pulse Rate [Left] 72 Respiratory Rate 20 Blood Pressure 195/86 H Blood Pressure [Right Arm] 185/86 H Blood Pressure Mean [Right Arm] 119 Blood Pressure Source [Right Arm] Automatic Cuff Blood Pressure Position [Right Arm] Sitting 02 Sat by Pulse Oximetry 98 98 Oxygen Delivery Method Room Air Room Air Lab Data Lab Results 04/15/24 16:24: WBC 6.8, RBC 4.06 L, Hgb 13.6 L, Hct 38.1 L, MCV 94.0, MCH 33.4 H, MCHC 35.6 H, RDW 13.7, Plt Count 247, MPV 8.0, Neut % (Auto) 70.6, Lymph % (Auto) 21.5, Allen % (Auto) 5.1, Eos % (Auto) 2.4, Baso % (Auto) 0.4, Neut # (Auto) 4.8, Lymph # (Auto) 1.5, Allen # (Auto) 0.3, Eos # (Auto) 0.2, Baso # (Auto) 0.0, D-Dimer 0.36, Sodium 140, Potassium 3.2 L, Chloride 108 H, Carbon Dioxide 26, Anion Gap 9.2, BUN 17, Creatinine 0.80, Estimated Creat Clear 109, Estimated GFR 97, Est GFR ( Amer) 117, Glucose 122 H, Calcium 8.9, Total Bilirubin 0.5, AST 23, ALT 24, Alkaline Phosphatase 79, Troponin I < 0.01, N T-Pro-B Natriuret Pep 682 H, Total Protein 6.4, Albumin 3.6, Globulin 2.8, Albumin/Globulin Ratio 1.3 04/15/24 16:24 04/15/24 16:24 Orders (Tests/Meds): ED MEDICATIONS Discontinued Medications Generic Name Dose Route Start Last Admin Trade Name Christopher PRN Reason Stop Dose Admin Aspirin 324 mg 04/15/24 16:37 04/15/24 16:40 Aspirin 81mg Chewable Tablet PO 04/15/24 16:38 324 mg ONCE ONE Administration Furosemide 40 mg 04/15/24 18:41 Furosemide 40mg/4ml Vial IV 04/15/24 18:42 ONCE ONE Potassium Chloride 40 meq 04/15/24 18:41 Potassium Chloride 20meq Tab PO 04/15/24 18:42 ONCE ONE ORDERS Category Date Time Status CXR --portable [XR chest portable] Stat Exams 04/15/24 16:33 Completed POCUS Point of Care (ER Only) Stat Exams 04/15/24 16:33 Completed BNP [NT Pro Brain Natriuretic Pep.] Stat Lab 04/15/24 16:24 Completed CBC w/Auto Diff [Complete Blood Count Auto Diff] Stat Lab 04/15/24 16:24 Completed CMP [Comprehensive Metabolic Panel] Stat Lab 04/15/24 16:24 Completed D-Dimer Stat Lab 04/15/24 16:24 Completed Trop I [Troponin I] Stat Lab 04/15/24 16:24 Completed Troponin I Q3H Lab 04/15/24 19:45 Ordered Troponin I Q3H Lab 04/15/24 22:45 Ordered ECG Data Tracing #1: Independently interpreted by me rate of 70, rhythm is regular, axis is normal, no ST elevation in anatomical contiguous leads, QTc 411. Medical Decision Narrative: In summary patient is a 63-year-old male with past medical history described above presents emergency department for evaluation of shortness of breath. Patient is hemodynamically stable nontoxic-appearing upon arrival, afebrile. Patient is hemodynamically stable nontoxic-appearing arrival, afebrile. Differential diagnosis includes CHF, atypical ACS, pulmonary malaise him, among others. Patient is clear to auscultation all lung crum making infection or pneumonia less likely. Patient has no current urticaria, no wheezing to suggest prolonged allergic reaction. He has bilateral lower extremity pitting edema consistent with volume overload. Initial workup will be conducted with hematologic labs, chest x-ray, EKG, troponin. Initial interventions include aspirin. Initial workup reviewed by me, hematologic labs are largely nonactionable, there is mild hypokalemia which will be repleted orally, initial troponin undetectably low, there is elevated BNP suggestive of some degree of heart failure whether diastolic or systolic. Chest x-ray informally interpreted by me, it appears there is bilateral perihilar opacities with cephalization. Given that patient does not have any significant white count or cough or fever to suggest infectious symptoms I suspect this is pulmonary edema. 40 mg of IV Lasix will be administered and given that he has no significant tachypnea or oxygen requirement patient is appropriate for outpatient cardiac evaluation and will be discharged with 2 days of Lasix. Critical Care Critical Care Time Critical Care Time: No
[2024-04-15 16:38] LABS: Basophils % 0.4 % (0.1-2.0); Eosinophils # 0.2 K/mm3 (0.0-0.4); Eosinophils % 2.4 % (0.1-12.0); Hematocrit 38.1 % (42.0-52.0); Hemoglobin 13.6 g/dL (14.1-18.0); Lymphocytes # 1.5 K/mm3 (0.7-4.5); Lymphocytes % 21.5 % (10-50); Mean Corpuscular HGB Conc 35.6 g/dL (31.8-35.4); Mean Corpuscular Hemoglobin 33.4 pg (27.0-31.2); Monocytes # 0.3 K/mm3 (0.1-1.0); Monocytes % 5.1 % (1.7-9.3); Neutrophils # 4.8 K/mm3 (1.8-7.8); Neutrophils % 70.6 % (37.0-80.0); Platelet Count 247 K/mm3 (142-424); Red Blood Count 4.06 M/mm3 (4.60-6.20); Red Cell Distribution Width 13.7 % (11.5-17.5); White Blood Count 6.8 K/mm3 (4.8-10.8)
[2024-04-15] MEDS: ASPIRIN 81MG CHEWABLE TABLET 324 MG PO (16:40)
[2024-04-15 16:44] LABS: Alanine Aminotransferase 24 U/L (12-78); Albumin Level 3.6 g/dl (3.5-5.0); Albumin/Globulin Ratio 1.3 (1.1-1.8); Alkaline Phosphatase 79 U/L (38-126); Anion Gap 9.2 mEq/L (5-15); Aspartate Amino Transferase 23 U/L (17-59); Bilirubin,Total 0.5 mg/dl (0.2-1.3); Blood Urea Nitrogen 17 mg/dl (9-20); Calcium 8.9 mg/dl (8.4-10.2); Carbon Dioxide 26 mmol/L (22.0-30.0); Chloride 108 mmol/L (98-107); Creatinine Clearance Estimated 109 mL/min (50-200); Estimated Glomerular Filt Rate 97 ml/min (>60); GFR (African American) 117 ML/MIN (>60); Globulin 2.8 g/dL (1.3-3.2); Glucose 122 mg/dl (74-100); Potassium 3.2 mmoL/L (3.5-5.1); Sodium 140 mmol/L (136-145); Total Protein,Serum 6.4 g/dl (6.3-8.2)
[2024-04-15 16:49] LABS: D-Dimer 0.36 ug/mL (0.0-0.5)
[2024-04-15 16:58] LABS: NT Pro Brain Natriuretic Pep. 682 pg/mL (0-125)
[2024-04-15 17:28] LABS: Troponin I < 0.01 ng/ml (0.00-0.034)
[2024-04-15] MEDS: FUROSEMIDE 40MG/4ML VIAL 40 MG IV (18:53)
[2024-04-15] MEDS: POTASSIUM CHLORIDE 20MEQ TAB 40 MEQ PO (18:53)
[2024-04-15 18:57] VITALS: BP 165/85; PULSE 71; RESP 16; TEMP 36.7; O2SAT 96
== END 2024-04-15 19:00 | disposition home or self-care (01) ==
PROVIDERS: Emergency Provider Emergency Medicine; PCP Family Medicine
DX: I10 Essential (primary) hypertension (principal)
CPT/HCPCS: 71045; 80053; 83880; 84484; 85025; 85378; 93005; J1940

== ENCOUNTER 2024-04-15 22:50 | Emergency (ER) | payer MEDICARE, SELFPAY ==
[2024-04-15 22:51] VITALS: BP 150/96; PULSE 101; RESP 26; TEMP 36.6; O2SAT 98; BMI 31.5
--- NOTE | 2024-04-15 23:04 | ED_ITS ---
Discharge Plan Disposition Patient Disposition: Home, Self-Care Prescriptions Prescriptions: No Action omeprazole 40 mg capsule,delayed release(DR/EC) 40 mg PO QDAY topiramate [Topamax] 25 mg tablet 25 mg PO QDAY tamsulosin 0.4 mg capsule 0.4 mg PO DAILY 90 Days Qty: 180 0RF Rx Instructions: Take one 1/2 hour after meal BID oxybutynin chloride 10 mg tablet extended release 24hr 10 mg PO DAILY Qty: 90 3RF finasteride [Proscar] 5 mg tablet 5 mg PO DAILY Qty: 90 3RF propranolol 120 MG capsule,extended release 24 hr 120 mg PO QDAY metformin 850 MG tablet 750 mg PO DAILY furosemide 20 MG tablet 20 mg PO DAILY pramipexole 0.75 MG tablet extended release 24 hr 1 mg PO DAILY pioglitazone [Actos] 45 mg Tablet 45 mg PO DAILY valsartan 320 mg tablet 160 mg PO DAILY insulin lispro protamin-lispro 100 unit/mL (75-25) Insulin Pen 30 unit SQ DAILY Rx Instructions: 60 UNITS IN AM, 30 UNITS AT NOON, 60 UNITS AT BEDTIME fluoxetine 60 mg Tablet 60 mg PO DAILY potassium chloride 20 mEq Tablet Extended Release 20 meq PO DAILY Ozempic 2 mg/dose (8 mg/3 mL) pen injector 1 mg SQ WEEKLY furosemide [Lasix] 40 mg tablet 40 mg PO DAILY Qty: 2 0RF Referrals Follow up/Referrals: Shaun Flowers MD [Staff Physician] - See instructions José Luis Flynn MD [Staff Physician] - See instructions Ryne Bergman MD [Primary Care Provider] - See instructions Activity Restrictions/Add. Instructions Additional Instructions/Restrictions: At this time it was felt you are safe to be discharged home. If new or worsening symptoms please do not hesitate to return the emergency department. Please call and schedule appoint with Dr. Flowers as soon as you are able and if you are unable to secure an appointment please follow-up with Dr. Bergman. For your shortness of breath and heart failure as discussed earlier this evening please call Dr. Flynn's office and schedule an appointment Clinical Impressions Clinical Impression: Obstructive uropathy Discharge ED Provider: Jaswant Domingo General Adult HPI General Stated complaint: Unable to pee Time Seen by Provider: 04/15/24 22:56 History of Present Illness HPI narrative: Patient is a 63-year-old male with past medical history of BPH on Flomax and finasteride who presents emergency department for evaluation of inability to void. I remember this patient well. I just saw him earlier this evening for insidious shortness of breath and lower extremity swelling which I suspect is undiagnosed heart failure which I gave him Lasix for. He has had difficulty voiding given that he has not taken his Flomax or finasteride in the last 48 hours. Originally when he went home he voided without difficulty however since then he had extreme difficulty voiding with suprapubic pressure with associated severe pain causing her to present here for continued evaluation. No other acute complaints at this time. Related Data Home Medications Medication Instructions Recorded Confirmed omeprazole 40 mg capsule,delayed 40 mg PO QDAY stomach 10/05/17 04/03/24 release topiramate 25 mg tablet (Topamax) 25 mg PO QDAY STILES 10/05/17 04/03/24 propranolol 120 mg capsule,24 120 mg PO QDAY bp 04/03/19 04/03/24 hr,extended release furosemide 20 mg tablet 20 mg PO DAILY Fluid 02/28/21 04/03/24 metformin 850 mg tablet 750 mg PO DAILY Diabetes 02/28/21 04/03/24 pramipexole 0.75 mg 1 mg PO DAILY leg cramps 02/28/21 04/03/24 tablet,extended release 24 hr fluoxetine 60 mg tablet 60 mg PO DAILY 03/17/24 04/03/24 insulin lispro protamine-lispro 30 unit SQ DAILY 03/17/24 04/03/24 100 unit/mL (75-25) subcutaneous pen pioglitazone 45 mg tablet (Actos) 45 mg PO DAILY 03/17/24 04/03/24 potassium chloride 20 mEq 20 meq PO DAILY 03/17/24 04/03/24 tablet,extended release semaglutide 2 mg/dose (8 mg/3 mL) 1 mg SQ WEEKLY 03/17/24 04/03/24 subcutaneous pen injector (Ozempic) valsartan 320 mg tablet 160 mg PO DAILY 03/17/24 04/03/24 Previous Rx's Medication Instructions Recorded finasteride 5 mg tablet (Proscar) 5 mg PO DAILY #90 tabs 04/03/24 oxybutynin chloride 10 mg 10 mg PO DAILY #90 tabs 04/03/24 tablet,extended release 24 hr tamsulosin 0.4 mg capsule 0.4 mg PO DAILY prostate 90 days 04/03/24 #180 caps furosemide 40 mg tablet (Lasix) 40 mg PO DAILY volume overload #2 04/15/24 tabs Allergies Allergy/AdvReac Type Severity Reaction Status Date / Time morphine [MORPHINE] Allergy Unknown Verified 04/03/24 11:22 [facility] Disclaimer: The information contained in this section may have been updated after the patient was seen, as this information can be updated by other users. Medical History Urinary tract infection Anxiety and depression Hyperlipidemia Hypertension H/O carpal tunnel syndrome Diabetes mellitus, type 2 Sleep apnea History of chest pain Surgical History H/O discectomy History of cholecystectomy Family History Other Bone cancer Kidney failure Lung cancer Social History Smoking Status: Never smoker alcohol intake: never substance use type: denies use current occupational status: retired and disabled Travel in the last 8 weeks: None household members: spouse housing: house current occupational exposures/hazards: No caffeine: Yes ROS Obtained: Yes Systems reviewed as appropriate & no additional complaints except as documented Physical Exam General General appearance: alert and in distress Head Head exam: atraumatic and normocephalic Eye Eye exam: Present PERRL ENT ENT exam: Present mucous membranes moist Neck Neck exam: Present normal inspection Chest Chest inspection: Present normal inspection and symmetric chest wall rise Respiratory Respiratory exam: Present normal lung sounds bilaterally; Absent respiratory distress Cardiovascular Cardiovascular exam: Present regular rate and normal rhythm Abdominal Exam Abdominal exam: Present soft; Absent tenderness Extremities Exam Extremities exam: Present normal inspection Neurological Exam Neurological exam: Present alert Psychiatric Psychiatric exam: Present normal affect Skin Skin exam: Present warm and dry Medical Decision Making Jay Inquiry Pt receiving controlled substance: No Medical Decision Narrative: In summary patient is a 63-year-old male with past medical history described above who presents emergency department for evaluation of obstructive uropathy in the setting of BPH off of Flomax. Patient is hemodynamically stable and appearing in pain upon arrival. Bladder scan showed significant urinary retention. Schwartz was anchored with greater than 1500 initially. Patient had immediate resolution of pain. He states that his shortness of breath is somewhat improved from prior. He has no other acute complaints that require evaluation at this time. Given that I feel his shortness of breath is secondary to his likely undiagnosed heart failure and volume overload I do not think that patient had an allergic reaction to his finasteride or tamsulosin given that he had no rash, no wheezing upon my initial presentation. He was instructed to retake these as well as to continue to take his Lasix for the next 2 days and follow-up with cardiology. Schwartz will be anchored in place and he will follow- up with Kristie on an outpatient basis. Critical Care Critical Care Time Critical Care Time: No
[2024-04-15 23:11] LABS: Microscopic, Urine URINE MICROSCOPIC (MICROSCOPIC)
[2024-04-15 23:13] LABS: Appearance,Urine CLEAR (Clear); Bilirubin,Urine Negative (Negative); Blood, Urine 3+ (Negative); Color,Urine YELLOW (Yellow); Glucose,Urine (UA) Negative (Negative); Ketones,Urine Negative (Negative); Leukocyte Esterase,Urine Negative (Negative); Nitrate,Urine Negative (Negative); Protein,Urine Negative (Negative); Urobilinogen,Urine 0.2 EU/dl (0.2)
[2024-04-15 23:30] LABS: Bacteria,Urine 2+ /lpf; RBC,Urine 20-50 #/hpf (0-3); WBC,Urine Occasional #/hpf (0-3)
[2024-04-16 00:01] VITALS: BP 145/60; PULSE 71; RESP 18; TEMP 36.8; O2SAT 93
--- NOTE | 2024-04-18 14:43 | PC.NURSE ---
Notified pt of urine culture results and reviewed final results and called in an cefdinir to pt pharmacy to start taking
== END 2024-04-16 00:15 | disposition home or self-care (01) ==
PROVIDERS: Emergency Provider Emergency Medicine; PCP Family Medicine
DX: N13.9 Obstructive and reflux uropathy, unspecified (principal); B96.1 Klebsiella pneumoniae [K. pneumoniae] as the cause of diseases classified elsewhere; R10.2 Pelvic and perineal pain; I11.0 Hypertensive heart disease with heart failure; E78.5 Hyperlipidemia, unspecified; E11.9 Type 2 diabetes mellitus without complications; Z79.4 Long term (current) use of insulin; Z79.84 Long term (current) use of oral hypoglycemic drugs; Z79.85 Long-term (current) use of injectable non-insulin antidiabetic drugs; N39.0 Urinary tract infection, site not specified; E87.6 Hypokalemia; I50.9 Heart failure, unspecified; R06.02 Shortness of breath
CPT/HCPCS: 51702; 71045; 80053; 81001; 83880; 84484; 85025; 85378; 87086; 87088; 87186; 93005; 96374; 99283; 99284; J1940

== ENCOUNTER 2024-04-17 11:04 | Outpatient (CLI) | payer MEDICARE, SELFPAY | END 2024-04-17 23:59 | disposition home or self-care (01) | LOC: LAB.DROPOF 04-18 11:04 | PROVIDERS: PCP Urology; Visit Provider Urology | DX: R33.8 Other retention of urine (principal) | CPT/HCPCS: 87086; 87088; 87186 ==

== ENCOUNTER 2024-04-17 16:16 | Emergency (ER) | payer MEDICARE, SELFPAY ==
[2024-04-17 16:18] VITALS: BP 145/68; PULSE 84; RESP 16; TEMP 36.6; O2SAT 97; BMI 28.8
[2024-04-17 16:47] VITALS: BMI 34.0
--- NOTE | 2024-04-17 16:52 | HMH.EDGENADL ---
Discharge Plan Disposition Patient Disposition: Home, Self-Care Prescriptions Prescriptions: No Action omeprazole 40 mg capsule,delayed release(DR/EC) 40 mg PO QDAY topiramate [Topamax] 25 mg tablet 25 mg PO QDAY finasteride [Proscar] 5 mg tablet 5 mg PO DAILY Qty: 90 3RF tamsulosin 0.4 mg capsule 0.8 mg PO DAILY 90 Days Qty: 180 1RF Rx Instructions: Take one 1/2 hour after meal BID sulfamethoxazole-trimethoprim [Bactrim DS] 800-160 mg tablet 1 tab PO BID 7 Days Qty: 14 0RF phenazopyridine [Pyridium] 200 mg tablet 200 mg PO TID 3 Days Qty: 9 0RF propranolol 120 MG capsule,extended release 24 hr 120 mg PO QDAY metformin 850 MG tablet 750 mg PO DAILY furosemide 20 MG tablet 20 mg PO DAILY pramipexole 0.75 MG tablet extended release 24 hr 1 mg PO DAILY pioglitazone [Actos] 45 mg Tablet 45 mg PO DAILY valsartan 320 mg tablet 160 mg PO DAILY insulin lispro protamin-lispro 100 unit/mL (75-25) Insulin Pen 30 unit SQ DAILY Rx Instructions: 60 UNITS IN AM, 30 UNITS AT NOON, 60 UNITS AT BEDTIME fluoxetine 60 mg Tablet 60 mg PO DAILY potassium chloride 20 mEq Tablet Extended Release 20 meq PO DAILY Ozempic 2 mg/dose (8 mg/3 mL) pen injector 1 mg SQ WEEKLY furosemide [Lasix] 40 mg tablet 40 mg PO DAILY Qty: 2 0RF Referrals Follow up/Referrals: Shaun Flowers MD [Staff Physician] - See instructions Ryne Bergman MD [Primary Care Provider] - See instructions Activity Restrictions/Add. Instructions Additional Instructions/Restrictions: Please call Dr. Flowers and follow back up with him at his next available appointment. Clinical Impressions Clinical Impression: Acute urinary retention, BPH (benign prostatic hyperplasia) Discharge ED Provider: Marco A Martin General Adult HPI General Stated complaint: unable to urinate Time Seen by Provider: 04/17/24 16:47 History of Present Illness HPI narrative: Patient is a 63-year-old male present today with acute urinary retention. He has been intermittently dealing with this for some time has been followed by Dr. Flowers with urology actually was in Dr. Flowers's office this morning had his Schwartz catheter removed had a voiding trial which was successful he is on Flomax but returns with worsening urinary retention. He has known BPH and is being considered for transurethral resection of his prostate. Denies any other symptoms such as fevers chills etc. Related Data Home Medications Medication Instructions Recorded Confirmed omeprazole 40 mg capsule,delayed 40 mg PO QDAY stomach 10/05/17 04/17/24 release topiramate 25 mg tablet (Topamax) 25 mg PO QDAY STILES 10/05/17 04/17/24 propranolol 120 mg capsule,24 120 mg PO QDAY bp 04/03/19 04/17/24 hr,extended release furosemide 20 mg tablet 20 mg PO DAILY Fluid 02/28/21 04/17/24 metformin 850 mg tablet 750 mg PO DAILY Diabetes 02/28/21 04/17/24 pramipexole 0.75 mg 1 mg PO DAILY leg cramps 02/28/21 04/17/24 tablet,extended release 24 hr fluoxetine 60 mg tablet 60 mg PO DAILY 03/17/24 04/17/24 insulin lispro protamine-lispro 30 unit SQ DAILY 03/17/24 04/17/24 100 unit/mL (75-25) subcutaneous pen pioglitazone 45 mg tablet (Actos) 45 mg PO DAILY 03/17/24 04/17/24 potassium chloride 20 mEq 20 meq PO DAILY 03/17/24 04/17/24 tablet,extended release semaglutide 2 mg/dose (8 mg/3 mL) 1 mg SQ WEEKLY 03/17/24 04/17/24 subcutaneous pen injector (Ozempic) valsartan 320 mg tablet 160 mg PO DAILY 03/17/24 04/17/24 Previous Rx's Medication Instructions Recorded furosemide 40 mg tablet (Lasix) 40 mg PO DAILY volume overload #2 04/15/24 tabs finasteride 5 mg tablet (Proscar) 5 mg PO DAILY #90 tabs 04/17/24 phenazopyridine 200 mg tablet 200 mg PO TID 3 days #9 tabs 04/17/24 (Pyridium) sulfamethoxazole 800 1 tab PO BID 7 days #14 tabs 04/17/24 mg-trimethoprim 160 mg tablet (Bactrim DS) tamsulosin 0.4 mg capsule 0.8 mg (2 x 0.4 mg) PO DAILY 07/22/24 prostate 90 days #180 caps Allergies Allergy/AdvReac Type Severity Reaction Status Date / Time morphine [MORPHINE] Allergy Unknown Verified 04/17/24 10:41 [facility] Disclaimer: The information contained in this section may have been updated after the patient was seen, as this information can be updated by other users. Medical History Urinary tract infection Anxiety and depression Hyperlipidemia Hypertension H/O carpal tunnel syndrome Diabetes mellitus, type 2 Sleep apnea History of chest pain Surgical History H/O discectomy History of cholecystectomy Family History Other Bone cancer Kidney failure Lung cancer Social History Smoking Status: Never smoker alcohol intake: never substance use type: denies use current occupational status: retired and disabled Travel in the last 8 weeks: None household members: spouse housing: house current occupational exposures/hazards: No caffeine: Yes ROS Obtained: Yes All systems reviewed & no additional complaints except as documented Physical Exam General General appearance: in distress (And pain) Respiratory Respiratory exam: Present normal lung sounds bilaterally Cardiovascular Cardiovascular exam: Present regular rate Abdominal Exam Abdominal exam: Present soft, distention and tenderness Neurological Exam Neurological exam: Present alert and oriented X3 Medical Decision Making Jay Inquiry Pt receiving controlled substance: No Orders (Tests/Meds): ED MEDICATIONS Discontinued Medications Generic Name Dose Route Start Last Admin Trade Name Freq PRN Reason Stop Dose Admin Lidocaine HCl 1 ml 04/17/24 16:48 Lidocaine 2% Urojet 10ml TP 04/17/24 16:49 ONCE ONE Medical Decision Narrative: 63-year-old with known BPH and secondary urinary retention has needed recurrent indwelling Schwartz catheters and is followed by Dr. Flowers being considered for a TURP. He has recurrence of his urinary retention will place a Schwartz catheter and a leg bag and reassess. At 5:10 PM I reassessed the patient is feeling much better after his Schwartz catheter was placed he had significant amount of urine that has come out no indication I think at this point for attaining a urinalysis or a BMP he will follow-up with Dr. [place] next available appointment he was discharged in improved and stable condition. Critical Care Critical Care Time Critical Care Time: No
[2024-04-17] MEDS: LIDOCAINE 2% UROJET 10ML TP (17:11)
[2024-04-17 17:12] VITALS: BP 165/92; PULSE 75; RESP 15; TEMP 36.6; O2SAT 94
== END 2024-04-17 17:40 | disposition home or self-care (01) ==
LOC: ER 17:13
PROVIDERS: Emergency Provider Student in an Organized Health Care Education/Training Program; PCP Family Medicine
DX: R33.8 Other retention of urine (principal); N40.0 Benign prostatic hyperplasia without lower urinary tract symptoms
CPT/HCPCS: 87086; 87088; 87186; 99283

== ENCOUNTER 2024-04-23 11:01 | Emergency (ER) | payer MEDICARE, SELFPAY ==
[2024-04-23 11:02] VITALS: BP 163/74; PULSE 92; RESP 20; TEMP 37.2; O2SAT 95; BMI 33.0
--- NOTE | 2024-04-23 11:20 | PC.NURSE ---
DR VILLARREAL AT BEDSIDE
--- NOTE | 2024-04-23 11:20 | PC.NURSE ---
Dr. Martin at bedside
--- NOTE | 2024-04-23 11:39 | ED_ITS ---
Discharge Plan Disposition Patient Disposition: Home, Self-Care Prescriptions Prescriptions: No Action omeprazole 40 mg capsule,delayed release(DR/EC) 40 mg PO QDAY topiramate [Topamax] 25 mg tablet 25 mg PO QDAY pramipexole 1 mg tablet 1 mg PO albuterol sulfate 90 mcg/actuation HFA aerosol inhaler 1 inh inhalation Q6H Qty: 6.7 2RF furosemide [Lasix] 40 mg tablet 40 mg PO DAILY Qty: 30 5RF hydralazine 25 mg tablet 25 mg PO QID PRN (Reason: blood pressure) Qty: 120 2RF Rx Instructions: take one tab if bp greater than 180 finasteride [Proscar] 5 mg tablet 5 mg PO DAILY Qty: 90 3RF tamsulosin 0.4 mg capsule 0.8 mg PO DAILY 90 Days Qty: 180 1RF Rx Instructions: Take one 1/2 hour after meal BID sulfamethoxazole-trimethoprim [Bactrim DS] 800-160 mg tablet 1 tab PO BID 7 Days Qty: 14 0RF phenazopyridine [Pyridium] 200 mg tablet 200 mg PO TID 3 Days Qty: 9 0RF propranolol 120 MG capsule,extended release 24 hr 120 mg PO QDAY metformin 850 MG tablet 750 mg PO DAILY furosemide 20 MG tablet 20 mg PO DAILY pramipexole 0.75 MG tablet extended release 24 hr 1 mg PO DAILY pioglitazone [Actos] 45 mg Tablet 45 mg PO DAILY valsartan 320 mg tablet 160 mg PO DAILY insulin lispro protamin-lispro 100 unit/mL (75-25) Insulin Pen 30 unit SQ DAILY Rx Instructions: 60 UNITS IN AM, 30 UNITS AT NOON, 60 UNITS AT BEDTIME fluoxetine 60 mg Tablet 60 mg PO DAILY potassium chloride 20 mEq Tablet Extended Release 20 meq PO DAILY Ozempic 2 mg/dose (8 mg/3 mL) pen injector 1 mg SQ WEEKLY furosemide [Lasix] 40 mg tablet 40 mg PO DAILY Qty: 2 0RF cefdinir 300 mg capsule 300 mg PO BID 10 Days Qty: 20 0RF Referrals Follow up/Referrals: Ryne Bergman MD [Primary Care Provider] - See instructions Activity Restrictions/Add. Instructions Additional Instructions/Restrictions: As discussed you have a catheter associated urinary tract infection. The organism that was going on your most recent urine culture was Klebsiella and it was pansensitive to antibiotics including to the antibiotic you are currently ta zeynep. In an effort to prevent worsening infection we removed your catheter today if you have recurrence of urinary retention I recommend you come back to have your bladder decompressed before you learn how to self cath at home. Also return with any high fevers or other concerns as we would need to transfer you for inpatient urology consultation and IV antibiotics. Clinical Impressions Clinical Impression: Catheter-associated urinary tract infection, BPH (benign prostatic hyperplasia), Hematuria Instructions Patient Instructions: DI for Urinary Tract Infection (UTI), DI for Urinary Tract Infection in Children Print Language Print Language: Lao Discharge ED Provider: Marco A Martin General Adult HPI General Chief complaint: Urogenital-Male Stated complaint: blood in urine Time Seen by Provider: 04/23/24 11:20 Mode of Arrival: Ambulatory Source of Information: Patient Limitations: No Limitations Description of Symptoms (Recalled from ER Triage Doc. by RN): PT REPORTS BLOODY URINE FROM ACHARYA CATH NOTED ON WEDNESDAY. SMALL CLOTS, DENIES PAIN. DENIES FEVER OR CHILLS. REPORTS LEAKING AROUND CATHETHER HAVING TO WEAR ATTENDS FOR LEAKING URINE. APPT WITH UROLOGY TOMORROW, CURRENTLY ON ABX History of Present Illness HPI narrative: Patient is a 63-year-old male presenting today with hematuria coming through his indwelling Acharya catheter. I recently saw him he is being followed closely by Dr. Flowers for BPH and has had urinary retention he is being evaluated for possible transurethral resection of his prostate and is likely going to get referred to [facility] soon. He has follow-up tomorrow with Dr. Flowers. Dr. Flowers told him that he will be doing self caths until he can be seen by [facility] urology. Patient has not had any fevers or chills has had a little bit of red urine no significant clots or obstruction or significant abdominal pain. He is currently taking cefdinir as he recently grew Klebsiella which was pansensitive and has been on this since Wednesday of this week. Related Data Home Medications ?Medication ?Instructions ?Recorded ?Confirmed omeprazole 40 mg capsule,delayed 40 mg PO QDAY stomach 10/05/17 04/19/24 release topiramate 25 mg tablet (Topamax) 25 mg PO QDAY STILES 10/05/17 04/19/24 propranolol 120 mg capsule,24 120 mg PO QDAY bp 04/03/19 04/19/24 hr,extended release furosemide 20 mg tablet 20 mg PO DAILY Fluid 02/28/21 04/19/24 metformin 850 mg tablet 750 mg PO DAILY Diabetes 02/28/21 04/19/24 pramipexole 0.75 mg 1 mg PO DAILY leg cramps 02/28/21 04/19/24 tablet,extended release 24 hr fluoxetine 60 mg tablet 60 mg PO DAILY 03/17/24 04/19/24 insulin lispro protamine-lispro 30 unit SQ DAILY 03/17/24 04/19/24 100 unit/mL (75-25) subcutaneous pen pioglitazone 45 mg tablet (Actos) 45 mg PO DAILY 03/17/24 04/19/24 potassium chloride 20 mEq 20 meq PO DAILY 03/17/24 04/19/24 tablet,extended release semaglutide 2 mg/dose (8 mg/3 mL) 1 mg SQ WEEKLY 03/17/24 04/19/24 subcutaneous pen injector (Ozempic) valsartan 320 mg tablet 160 mg PO DAILY 03/17/24 04/19/24 pramipexole 1 mg tablet 1 mg PO 04/19/24 04/19/24 Previous Rx's ?Medication ?Instructions ?Recorded furosemide 40 mg tablet (Lasix) 40 mg PO DAILY volume overload #2 04/15/24 tabs finasteride 5 mg tablet (Proscar) 5 mg PO DAILY #90 tabs 04/17/24 phenazopyridine 200 mg tablet 200 mg PO TID 3 days #9 tabs 04/17/24 (Pyridium) sulfamethoxazole 800 1 tab PO BID 7 days #14 tabs 04/17/24 mg-trimethoprim 160 mg tablet (Bactrim DS) tamsulosin 0.4 mg capsule 0.8 mg (2 x 0.4 mg) PO DAILY 04/17/24 prostate 90 days #180 caps cefdinir 300 mg capsule 300 mg PO BID 10 days #20 caps 04/18/24 albuterol sulfate 90 mcg/actuation 1 inh inhalation Q6H #6.7 grams 04/19/24 aerosol inhaler furosemide 40 mg tablet (Lasix) 40 mg PO DAILY #30 tabs 04/19/24 hydralazine 25 mg tablet 25 mg PO QID PRN blood pressure 04/19/24 #120 tabs Allergies Allergy/AdvReac Type Severity Reaction Status Date / Time oxybutynin Allergy Severe angioedema Verified 04/19/24 10:20 morphine [MORPHINE] Allergy Unknown Verified 04/19/24 10:00 [facility] Disclaimer: The information contained in this section may have been updated after the patient was seen, as this information can be updated by other users. Medical History (Updated 04/23/24 @ 11:39 by Marco A Martin MD) Urinary tract infection Anxiety and depression Hyperlipidemia Hypertension H/O carpal tunnel syndrome Diabetes mellitus, type 2 Sleep apnea History of chest pain Surgical History H/O discectomy History of cholecystectomy Family History Other Bone cancer Kidney failure Lung cancer Social History Smoking Status: Never smoker alcohol intake: never substance use type: denies use current occupational status: retired and disabled Travel in the last 8 weeks: None household members: spouse housing: house current occupational exposures/hazards: No caffeine: Yes ROS Obtained: Yes All systems reviewed & no additional complaints except as documented Physical Exam General General appearance: alert and in no apparent distress Respiratory Respiratory exam: Present normal lung sounds bilaterally Cardiovascular Cardiovascular exam: Present regular rate and normal rhythm Abdominal Exam Abdominal exam: Present soft; Absent distention or tenderness Neurological Exam Neurological exam: Present alert and oriented X3 Medical Decision Making Jay Inquiry Pt receiving controlled substance: No Vital Signs: 04/23/24 11:02 Temperature 99.0 F Temperature Source Oral Pulse Rate [Radial] 92 H Respiratory Rate 20 Blood Pressure [Right Arm] 163/74 H Blood Pressure Mean [Right Arm] 103 Blood Pressure Source [Right Arm] Automatic Cuff Blood Pressure Position [Right Arm] Sitting 02 Sat by Pulse Oximetry 95 Oxygen Delivery Method Room Air Medical Decision Narrative: 63-year-old with above history and physical had extensive discussion with him regarding options currently. He does not appear to be obstructed and has good urine flow through his Acharya catheter at the moment do not suspect that he needs three-way and irrigation he is on any anticoagulation I do not suspect an active hemorrhage. He has a benign abdominal exam currently 2. This is most likely worsening of his known infection that he recently grew from his urine which was Klebsiella that was pansensitive he is on an appropriate antibiotic cefdinir. 2 options that I gave him more first to remove the Acharya catheter this is a cat heter associated urinary tract infection keeping the foreign body in would not be ricardo in this particular situation. However this could cause his urine to be static and he will need to be intermittently decompressed as is already the plan with his follow-up tomorrow with urology. He is not systemically ill however I offered for him to be transferred to be in a hospital system for IV antibiotics and consultation with inpatient urology. He opted for the former. We will place an outpatient order for him to come back at his convenience if he feels like he is getting obstructed at any point between today and tomorrow to have a straight cath in and out Acharya catheter. He is also been advised if he is running fever or feeling sick at all that he would need to be admitted given the complications that he has been dealing with recently. I believe he has very good follow-up tomorrow with our urologist and this should be a temporizing matter for him to be able to deal with tomorrow. Critical Care Critical Care Time Critical Care Time: No
[2024-04-23 11:45] VITALS: BP 148/71; PULSE 88; RESP 18; TEMP 37.2; O2SAT 95
== END 2024-04-23 11:45 | disposition home or self-care (01) ==
PROVIDERS: Emergency Provider Student in an Organized Health Care Education/Training Program; PCP Family Medicine
DX: T83.511A Infection and inflammatory reaction due to indwelling urethral catheter, initial encounter (principal); N40.0 Benign prostatic hyperplasia without lower urinary tract symptoms; R31.9 Hematuria, unspecified; B96.1 Klebsiella pneumoniae [K. pneumoniae] as the cause of diseases classified elsewhere
CPT/HCPCS: 99282

== ENCOUNTER 2024-04-24 09:35 | Outpatient (CLI) | payer MEDICARE, SELFPAY ==
--- NOTE | 2024-04-24 09:35 | CA_ITS ---
APPROVED REPORT EXAM: Comprehensive 2D, Doppler, and color-flow Echocardiogram [employer]: Freda Cheema RT(R) Ht: 5 ft 10 in Wt: 233lbs BSA: 2.23 BP: 183/68 mmHg Indications: HF, CP, HTN, DM, hyperlipidemia. 2D Dimensions Left Atrium 3.91 cm M: 3.0 - 4.0 LA Volume 44.00 mL LVOT 1.99 cm (M/F) 1.5-2.5 LA Volume Index 19.73 mL/m2 (M/F) 16-34 EF AP4 50.70 % GL Strain -19.4 % M-Mode Dimensions RVDd 2.70 cm (0.9-2.6) LVDd 5.47 cm (3.5-5.7) Ao Diam 2.99 cm (2.0-3.7) LVDs 3.86 cm (3.5-5.7) IVSd 0.80 cm (0.6-1.1) PWd 0.84 cm (0.6-1.1) EF (Teich) 55.80% FS 29.40% EDV (Teich) 145.60 mL ESV (Teich) 64.30 mL LV Diastology E Decel Time 181 (160-240 msec) E/A Ratio 1.3 MED E' 10.8 (>= 7 cm/sec) E'/MED E' Ratio 9.83 (<= 14) LAT E' 9.9 (>= 10 cm/sec) E/LAT E' Ratio 10.73 (<= 14) Mitral Valve MV E Max Denis. 106.0 (40-130 cm/s) MV A Velocity 81.0 (40-130 cm/s) E/A Ratio 1.32 MV Decel. Time 181 (160-240 ms) Left Ventricle The left ventricle is normal size. The left ventricular systolic function is normal. The left ventricular ejection fraction is within the normal range. There is increased LV wall thickness. Proximal septal thickening is noted. There is normal LV segmental wall motion. The left ventricular diastolic function is normal. LVEF is 60%. Right Ventricle The right ventricle is normal size. The right ventricular systolic function is normal. Atria The left atrium size is normal. The right atrium size is normal. There is no Doppler evidence of interatrial shunt. Aortic Valve The aortic valve opens well. Trace aortic regurgitation. There is no aortic valvular stenosis. Mitral Valve The mitral valve leaflets are mildly thickened. No evidence of mitral valve stenosis. Trace mitral regurgitation. Tricuspid Valve The tricuspid valve leaflets are thin and pliable. Trace tricuspid regurgitation. There is insufficient TR jet to estimate RVSP. Pulmonic Valve The pulmonary valve is normal in structure. Trace pulmonic regurgitation. Great Vessels The aortic root is normal in size. The ascending aorta is not well-visualized. IVC is normal in size and collapses >50% with inspiration. Pericardium There is no pericardial effusion. Other Information Study Quality: Fair Conclusion Normal biventricular systolic function. No significant valvular stenosis or regurgitation. Electronically signed by : Alejandra Lopes MD 04/24/2024 11:57:44
== END 2024-04-24 23:59 | disposition home or self-care (01) ==
LOC: RT 09:35
PROVIDERS: PCP Family Medicine; Visit Provider Physician Assistant
DX: R06.02 Shortness of breath (principal); I11.0 Hypertensive heart disease with heart failure; I50.21 Acute systolic (congestive) heart failure; E11.9 Type 2 diabetes mellitus without complications; E78.5 Hyperlipidemia, unspecified; R33.8 Other retention of urine; Z79.4 Long term (current) use of insulin; Z79.85 Long-term (current) use of injectable non-insulin antidiabetic drugs
CPT/HCPCS: 87086; 93306

== ENCOUNTER 2024-04-24 15:51 | Outpatient (CLI) | payer MEDICARE, SELFPAY | END 2024-04-24 23:59 | disposition home or self-care (01) | LOC: LAB.DROPOF 15:52 | PROVIDERS: PCP Urology; Visit Provider Urology | DX: Z02.9 Encounter for administrative examinations, unspecified (principal) ==

== ENCOUNTER 2024-09-28 15:38 | Emergency (ER) | payer MEDICARE, SELFPAY ==
--- NOTE | 2024-09-28 15:58 | ED_ITS ---
Discharge Plan Disposition Patient Disposition: Home, Self-Care Condition: Good Prescriptions Prescriptions: New benzonatate 100 mg capsule 100 mg PO TIDP PRN (Reason: Cough) Qty: 30 0RF amoxicillin-pot clavulanate 875-125 mg Tablet 1 tab PO Q12H Qty: 20 0RF No Action omeprazole 40 mg capsule,delayed release(DR/EC) 40 mg PO QDAY topiramate [Topamax] 25 mg tablet 25 mg PO QDAY pramipexole 1 mg tablet 1 mg PO albuterol sulfate 90 mcg/actuation HFA aerosol inhaler 1 inh inhalation Q6H Qty: 6.7 2RF furosemide [Lasix] 40 mg tablet 40 mg PO DAILY Qty: 30 5RF hydralazine 25 mg tablet 25 mg PO QID PRN (Reason: blood pressure) Qty: 120 2RF Rx Instructions: take one tab if bp greater than 180 tamsulosin 0.4 mg capsule 0.8 mg PO DAILY 90 Days Qty: 180 1RF Rx Instructions: Take one 1/2 hour after meal BID finasteride [Proscar] 5 mg tablet 5 mg PO DAILY Qty: 90 3RF sulfamethoxazole-trimethoprim [Bactrim DS] 800-160 mg tablet 1 tab PO BID 7 Days Qty: 14 0RF phenazopyridine [Pyridium] 200 mg tablet 200 mg PO TID 3 Days Qty: 9 0RF lamotrigine 25 mg tablet 50 mg PO HS Patient Comments: TAKE 2 TABLETS BY MOUTH ONCE DAILY AT NIGHT propranolol 120 MG capsule,extended release 24 hr 120 mg PO QDAY metformin 850 MG tablet 750 mg PO DAILY furosemide 20 MG tablet 20 mg PO DAILY pramipexole 0.75 MG tablet extended release 24 hr 1 mg PO DAILY pioglitazone [Actos] 45 mg Tablet 45 mg PO DAILY valsartan 320 mg tablet 160 mg PO DAILY insulin lispro protamin-lispro 100 unit/mL (75-25) Insulin Pen 30 unit SQ DAILY Rx Instructions: 60 UNITS IN AM, 30 UNITS AT NOON, 60 UNITS AT BEDTIME fluoxetine 60 mg Tablet 60 mg PO DAILY potassium chloride 20 mEq Tablet Extended Release 20 meq PO DAILY Ozempic 2 mg/dose (8 mg/3 mL) pen injector 1 mg SQ WEEKLY furosemide [Lasix] 40 mg tablet 40 mg PO DAILY Qty: 2 0RF cefdinir 300 mg capsule 300 mg PO BID 10 Days Qty: 20 0RF Referrals Follow up/Referrals: Ryne Bergman MD [Primary Care Provider] - See instructions Activity Restrictions/Add. Instructions Additional Instructions/Restrictions: Drink plenty of fluids. Take tylenol or ibuprofen for pain or fever. Take the medications as directed. Follow up with your regular doctor. GO TO THE ER FOR ANY WORSENING SYMPTOMS Clinical Impressions Clinical Impression: Bronchitis, Acute viral syndrome Instructions Patient Instructions: DI for Acute Bronchitis Print Language Print Language: French Discharge ED Provider: Louis Welch [facility] General Stated complaint: lauren, STILES cough Time Seen by Provider: 09/28/24 15:58 Related Data Home Medications ?Medication ?Instructions ?Recorded ?Confirmed omeprazole 40 mg capsule,delayed 40 mg PO QDAY stomach 10/05/17 08/07/24 release topiramate 25 mg tablet (Topamax) 25 mg PO QDAY STILES 10/05/17 08/07/24 propranolol 120 mg capsule,24 120 mg PO QDAY bp 04/03/19 08/07/24 hr,extended release furosemide 20 mg tablet 20 mg PO DAILY Fluid 02/28/21 08/07/24 metformin 850 mg tablet 750 mg PO DAILY Diabetes 02/28/21 09/28/24 pramipexole 0.75 mg 1 mg PO DAILY leg cramps 02/28/21 08/07/24 tablet,extended release 24 hr fluoxetine 60 mg tablet 60 mg PO DAILY 03/17/24 08/07/24 insulin lispro protamine-lispro 30 unit SQ DAILY 03/17/24 08/07/24 100 unit/mL (75-25) subcutaneous pen pioglitazone 45 mg tablet (Actos) 45 mg PO DAILY 03/17/24 09/28/24 potassium chloride 20 mEq 20 meq PO DAILY 03/17/24 08/07/24 tablet,extended release semaglutide 2 mg/dose (8 mg/3 mL) 1 mg SQ WEEKLY 03/17/24 08/07/24 subcutaneous pen injector (Ozempic) valsartan 320 mg tablet 160 mg PO DAILY 03/17/24 08/07/24 pramipexole 1 mg tablet 1 mg PO 04/19/24 08/07/24 lamotrigine 25 mg tablet 50 mg PO HS 08/07/24 08/07/24 Previous Rx's ?Medication ?Instructions ?Recorded furosemide 40 mg tablet (Lasix) 40 mg PO DAILY volume overload #2 04/15/24 tabs finasteride 5 mg tablet (Proscar) 5 mg PO DAILY #90 tabs 04/17/24 phenazopyridine 200 mg tablet 200 mg PO TID 3 days #9 tabs 04/17/24 (Pyridium) sulfamethoxazole 800 1 tab PO BID 7 days #14 tabs 04/17/24 mg-trimethoprim 160 mg tablet (Bactrim DS) cefdinir 300 mg capsule 300 mg PO BID 10 days #20 caps 04/18/24 albuterol sulfate 90 mcg/actuation 1 inh inhalation Q6H #6.7 grams 04/19/24 aerosol inhaler furosemide 40 mg tablet (Lasix) 40 mg PO DAILY #30 tabs 04/19/24 hydralazine 25 mg tablet 25 mg PO QID PRN blood pressure 04/19/24 #120 tabs tamsulosin 0.4 mg capsule 0.8 mg (2 x 0.4 mg) PO DAILY 04/24/24 prostate 90 days #180 caps amoxicillin 875 mg-potassium 1 tab PO Q12H #20 tabs 09/28/24 clavulanate 125 mg tablet benzonatate 100 mg capsule 100 mg PO TIDP PRN Cough #30 caps 09/28/24 Allergies Allergy/AdvReac Type Severity Reaction Status Date / Time oxybutynin Allergy Severe angioedema Verified 08/07/24 10:46 morphine (MORPHINE) Allergy Unknown Verified 08/07/24 10:46 [facility] Disclaimer: The information contained in this section may have been updated after the patient was seen, as this information can be updated by other users. Medical History Urinary tract infection Anxiety and depression Hyperlipidemia Hypertension H/O carpal tunnel syndrome Diabetes mellitus, type 2 Sleep apnea History of chest pain Surgical History H/O discectomy History of cholecystectomy Family History Other Bone cancer Kidney failure Lung cancer Social History Smoking Status: Never smoker alcohol intake: never substance use type: denies use current occupational status: retired and disabled Travel in the last 8 weeks: None household members: spouse housing: house current occupational exposures/hazards: No caffeine: Yes Have you lived/traveled outside [place] in past 30 days?: No Contact w/someone who lives/traveled outside [place] past 30 days?: No Exposure to someone with infectious disease in past 14 days?: No Do you have a fever (greater than 100.4 F or 38 C)?: No Have you tested positive for COVID-19: No Exposed to someone with COVID-19 in past 14 days?: No Do you have a sore throat?: No Do you have a cough?: Yes Do you have any weakness?: No Do you have any diarrhea?: No Are you experiencing any unusual bleeding?: No Do you have any muscle aches/pain?: No Do you have any abdominal pain?: No Are you experiencing loss of taste or smell?: No ROS Obtained: Yes All systems reviewed & no additional complaints except as documented Constitutional Constitutional: Reports chills and Reports fever(s) Eyes Eyes: Denies eye discharge ENT Ears, Nose, Mouth, and Throat: Reports as per HPI Cardiovascular Cardiovascular: Denies chest pain Respiratory Respiratory: Denies shortness of breath, Reports chest congestion, Reports cough, Denies stridor and Denies wheezing Gastrointestinal Gastrointestingal: Reports nausea; Denies abdominal pain, constipation, cramping, diarrhea or vomiting Musculoskeletal Musculoskeletal: Denies arthralgias Integumentary/Breasts Skin/Breast: Denies rash Neurologic Neurologic: Denies paresthesias Allergic/Immunologic Allergic/Immunologic: Denies wheezing Physical Exam General General appearance: alert and in no apparent distress Eye Eye exam: Present normal appearance, PERRL and EOMI ENT ENT exam: Present mucous membranes moist and normal external ear exam Expanded ENT Exam External ear exam: Present normal external inspection TM/Canal exam: Bilateral TM: erythema and bulging Nose exam: Absent sinus tenderness Nasal speculum exam: Bilateral: normal Mouth exam: Present normal external inspection; Absent drooling Teeth exam: Present normal inspection Throat exam: Present tonsillar erythema and tonsillomegaly Neck Neck exam: Present normal inspection, full ROM and trachea midline; Absent tenderness, lymphadenopathy or thyromegaly Chest Chest inspection: Present normal inspection and symmetric chest wall rise; Absent tenderness or rash Respiratory Respiratory exam: Present normal lung sounds bilaterally; Absent respiratory distress, wheezes, stridor or accessory muscle use Cardiovascular Cardiovascular exam: Present regular rate, normal rhythm and normal heart sounds Abdominal Exam Abdominal exam: Present soft; Absent distention, tenderness, guarding, rebound or rigidity Extremities Exam Extremities exam: Present normal inspection, full ROM and normal capillary refill; Absent tenderness or calf tenderness Back Exam Back exam: Present normal inspection and full ROM; Absent tenderness Neurological Exam Neurological exam: Present alert and oriented X3 Psychiatric Psychiatric exam: Present normal affect and normal mood Skin Skin exam: Present warm, dry, intact and normal color Lymphatic Lymphatic Findings: no adenopathy Medical Decision Making Medical Records Medical records reviewed: No I reviewed the patient's medical records. Screening: Per USPSTF and CDC recommendations, given the prevalence of disease in our region, it is our hospital?s policy to screen for HIV and viral Hepatitis for all patients aged 18 and over and those with ongoing risk factors. Jay Inquiry Pt receiving controlled substance: No Lab Data Lab results reviewed: Yes I reviewed the patient's lab results.
[2024-09-28 16:15] VITALS: BP 176/76; PULSE 70; RESP 18; TEMP 36.9; O2SAT 95; BMI 32.3
[2024-09-28 17:16] VITALS: BP 176/76; PULSE 70; RESP 18; TEMP 36.9
[2024-09-28 17:22] LABS: Coronavirus 19, PCR Not Detected (NotDetected); Influenza A, PCR Not Detected (NotDetected); Influenza B, PCR Not Detected (NotDetected)
== END 2024-09-28 17:20 | disposition home or self-care (01) ==
PROVIDERS: Emergency Provider Nurse Practitioner Family; PCP Family Medicine
DX: J20.9 Acute bronchitis, unspecified (principal); B34.9 Viral infection, unspecified
CPT/HCPCS: 87636; 99213; G0381

== ENCOUNTER 2024-11-29 12:24 | Emergency (ER) | payer MEDICARE, SELFPAY ==
[2024-11-29 12:29] VITALS: BP 198/89; PULSE 81; RESP 18; TEMP 37.1; O2SAT 98; BMI 33.0
--- NOTE | 2024-11-29 12:35 | ED_ITS ---
<Statement entered by Jaswant Domingo MD - 11/30/24 09:22> I was consulted by the DAYO, and we discussed the complexity of the problems being addressed. I approved the treatment and management plan for this patient's care in the emergency department, thus performing a substantive portion of the medical decision making. Jaswant Domingo MD Discharge Plan Disposition Patient Disposition: Home, Self-Care Condition: Good Prescriptions Prescriptions: New ondansetron 4 mg tablet,disintegrating 4 mg PO QID PRN (Reason: nausea and vomiting) Qty: 10 0RF No Action omeprazole 40 mg capsule,delayed release(DR/EC) 40 mg PO QDAY topiramate [Topamax] 25 mg tablet 25 mg PO QDAY albuterol sulfate 90 mcg/actuation HFA aerosol inhaler 1 inh inhalation Q6H Qty: 6.7 2RF furosemide [Lasix] 40 mg tablet 40 mg PO DAILY Qty: 30 5RF hydralazine 25 mg tablet 25 mg PO QID PRN (Reason: blood pressure) Qty: 120 2RF Rx Instructions: take one tab if bp greater than 180 sulfamethoxazole-trimethoprim [Bactrim DS] 800-160 mg tablet 1 tab PO BID 7 Days Qty: 14 0RF phenazopyridine [Pyridium] 200 mg tablet 200 mg PO TID 3 Days Qty: 9 0RF lamotrigine 25 mg tablet 50 mg PO HS Patient Comments: TAKE 2 TABLETS BY MOUTH ONCE DAILY AT NIGHT finasteride [Proscar] 5 mg tablet 5 mg PO DAILY Qty: 90 3RF propranolol 120 MG capsule,extended release 24 hr 120 mg PO QDAY metformin 850 MG tablet 750 mg PO DAILY furosemide 20 MG tablet 20 mg PO DAILY pioglitazone [Actos] 45 mg Tablet 45 mg PO DAILY valsartan 320 mg tablet 160 mg PO DAILY insulin lispro protamin-lispro 100 unit/mL (75-25) Insulin Pen 30 unit SQ DAILY Rx Instructions: 60 UNITS IN AM, 30 UNITS AT NOON, 60 UNITS AT BEDTIME fluoxetine 60 mg Tablet 60 mg PO DAILY potassium chloride 20 mEq Tablet Extended Release 20 meq PO DAILY Ozempic 2 mg/dose (8 mg/3 mL) pen injector 1 mg SQ WEEKLY furosemide [Lasix] 40 mg tablet 40 mg PO DAILY Qty: 2 0RF Referrals Follow up/Referrals: Ryne Bergman MD [Primary Care Provider] - See instructions Activity Restrictions/Add. Instructions Additional Instructions/Restrictions: As we discussed I have sent in antinausea medication into your pharmacy. Please look for align probiotic at the pharmacy. We have started your vancomycin here. You take 2.5 cc 4 times a day. Follow-up with your primary care physician within 48 hours for recheck. If you have worsening or new signs or symptoms return to the ER as needed Clinical Impressions Clinical Impression: Clostridium difficile enterocolitis Instructions Patient Instructions: DI for Diarrhea and Traveler's Diarrhea -- Adult, DI for Diarrhea and Traveler's Diarrhea -- Child, DI for Nausea -- Adult, DI for Nausea -- Child Print Language Print Language: Cambodian Discharge ED Provider: Jaswant Domingo General Adult HPI General Chief complaint: Nausea/Vomiting/Diarrhea Stated complaint: nausea diarrhea body ache Time Seen by Provider: 11/29/24 12:35 Mode of Arrival: Ambulatory Source of Information: Patient Description of Symptoms (Recalled from ER Triage Doc. by RN): Pt presents for evaluation of nausea, diarrhea and bodyaches since wednesday. Pt states he has tried to take immodium. History of Present Illness HPI narrative: Patient presents for 3 days of nausea watery diarrhea and bodyaches. Patient denies subjective fever chills hemoptysis hematochezia melena hematemesis. He can tolerate oral intake but remains persistently nauseated. He has some mild abdominal cramping pain Related Data Home Medications ?Medication ?Instructions ?Recorded ?Confirmed omeprazole 40 mg capsule,delayed 40 mg PO QDAY stomach 10/05/17 11/29/24 release topiramate 25 mg tablet (Topamax) 25 mg PO QDAY STILES 10/05/17 11/29/24 propranolol 120 mg capsule,24 120 mg PO QDAY bp 04/03/19 11/29/24 hr,extended release furosemide 20 mg tablet 20 mg PO DAILY Fluid 02/28/21 11/29/24 metformin 850 mg tablet 750 mg PO DAILY Diabetes 02/28/21 11/29/24 fluoxetine 60 mg tablet 60 mg PO DAILY 03/17/24 11/29/24 insulin lispro protamine-lispro 30 unit SQ DAILY 03/17/24 11/29/24 100 unit/mL (75-25) subcutaneous pen pioglitazone 45 mg tablet (Actos) 45 mg PO DAILY 03/17/24 11/29/24 potassium chloride 20 mEq 20 meq PO DAILY 03/17/24 11/29/24 tablet,extended release semaglutide 2 mg/dose (8 mg/3 mL) 1 mg SQ WEEKLY 03/17/24 11/29/24 subcutaneous pen injector (Ozempic) valsartan 320 mg tablet 160 mg PO DAILY 03/17/24 11/29/24 lamotrigine 25 mg tablet 50 mg PO HS 08/07/24 11/29/24 Previous Rx's ?Medication ?Instructions ?Recorded furosemide 40 mg tablet (Lasix) 40 mg PO DAILY volume overload #2 04/15/24 tabs phenazopyridine 200 mg tablet 200 mg PO TID 3 days #9 tabs 04/17/24 (Pyridium) sulfamethoxazole 800 1 tab PO BID 7 days #14 tabs 04/17/24 mg-trimethoprim 160 mg tablet (Bactrim DS) albuterol sulfate 90 mcg/actuation 1 inh inhalation Q6H #6.7 grams 04/19/24 aerosol inhaler furosemide 40 mg tablet (Lasix) 40 mg PO DAILY #30 tabs 04/19/24 hydralazine 25 mg tablet 25 mg PO QID PRN blood pressure 04/19/24 #120 tabs finasteride 5 mg tablet (Proscar) 5 mg PO DAILY #90 tabs 11/20/24 ondansetron 4 mg disintegrating 4 mg PO QID PRN nausea and 11/29/24 tablet vomiting #10 tabs Allergies Allergy/AdvReac Type Severity Reaction Status Date / Time oxybutynin Allergy Severe angioedema Verified 08/07/24 10:46 morphine (MORPHINE) Allergy Unknown Verified 08/07/24 10:[address] [facility] Disclaimer: The information contained in this section may have been updated after the patient was seen, as this information can be updated by other users. Medical History Urinary tract infection Anxiety and depression Hyperlipidemia Hypertension H/O carpal tunnel syndrome Diabetes mellitus, type 2 Sleep apnea History of chest pain Surgical History H/O discectomy History of cholecystectomy Family History Other Bone cancer Kidney failure Lung cancer Social History Smoking Status: Never smoker alcohol intake: never substance use type: denies use current occupational status: retired and disabled Travel in the last 8 weeks: None household members: spouse housing: house current occupational exposures/hazards: No caffeine: Yes Have you lived/traveled outside [place] in past 30 days?: No Contact w/someone who lives/traveled outside [place] past 30 days?: No Exposure to someone with infectious disease in past 14 days?: No Do you have a fever (greater than 100.4 F or 38 C)?: No Have you tested positive for COVID-19: No Exposed to someone with COVID-19 in past 14 days?: No Do you have a sore throat?: No Do you have a cough?: No Do you have any weakness?: No Do you have any diarrhea?: Yes Are you experiencing any unusual bleeding?: No Do you have any muscle aches/pain?: Yes Do you have any abdominal pain?: No Are you experiencing loss of taste or smell?: No Other Medical History Have you received the Flu Vaccine for this season: Yes Have you received the Pneumonia Vaccine: Yes ROS Obtained: Yes Systems reviewed as appropriate & no additional complaints except as documented Physical Exam General General appearance: alert and in no apparent distress Respiratory Respiratory exam: Present normal lung sounds bilaterally Cardiovascular Cardiovascular exam: Present regular rate Neurological Exam Neurological exam: Present alert and oriented X3 Medical Decision Making Medical Records Medical records reviewed: Yes I reviewed the patient's medical records. Screening: Per USPSTF and CDC recommendations, given the prevalence of disease in our region, it is our hospital?s policy to screen for HIV and viral Hepatitis for all patients aged 18 and over and those with ongoing risk factors. Jya Inquiry Pt receiving controlled substance: No Vital Signs: 11/29/24 12:29 11/29/24 15:57 Temperature 98.7 F 98.9 F Temperature Source Oral Oral Pulse Rate 78 Pulse Rate [Right] 81 Respiratory Rate 18 18 Blood Pressure 120/80 Blood Pressure [Right Arm] 198/89 H Blood Pressure Mean [Right Arm] 125 Blood Pressure Source Automatic Cuff Blood Pressure Source [Right Arm] Automatic Cuff Blood Pressure Position Sitting Blood Pressure Position [Right Arm] Sitting 02 Sat by Pulse Oximetry 98 Oxygen Delivery Method Room Air Room Air Lab Data Lab results reviewed: Yes I reviewed the patient's lab results. Lab Results 11/29/24 12:33: SARS-CoV-2 (PCR) Not detected, Influenza A Untype (PCR) Not detected, Influenza Type B (PCR) Not detected 11/29/24 12:57: Stl Aeromonas (PCR) Not detected, Stl C. cayetanensis PCR Not detected, Stool Rotavirus (PCR) Not detected, Stl Adenov F 40/41 PCR Not detected, Stool Astrovirus (PCR) Not detected, Stool Campylobacter PCR Not detected, Stl C.difficile Tox PCR Detected A, Stool Cryptosporidium PCR Not detected, Stl E.coli Shiga Tox PCR Not detected, Stool E coli O157 PCR Not detected, Stl Enterotoxigenic E PCR Not detected, Stool EPEC (PCR) Not detected, Stool EAEC (PCR) Not detected, Stl E. histolytica PCR Not detected, Stool Giardia Lamblia PCR Not detected, Stool Salmonella PCR Not detected, Stool Sapovirus (PCR) Not detected, Stl P. shigelloides PCR Not detected, Stl Shigella/EIEC PCR Not detected, St Y.enterocolitica PCR Not detected, Stool Vibrio (PCR) Not detected, Stl Vibrio cholerae PCR Not detected, Stl Norovirus GI/GII PCR Not detected 11/29/24 13:25: WBC 8.3, RBC 4.61, Hgb 13.6 L, Hct 41.0 L, MCV 88.9, MCH 29.5, MCHC 33.2, RDW 12.3, Plt Count 196, MPV 10.2, Neut % (Auto) 60.6, Lymph % (Auto) 27.8, Miller % (Auto) 7.4, Eos % (Auto) 3.5, Baso % (Auto) 0.5, Neut # (Auto) 5.0, Lymph # (Auto) 2.3, Miller # (Auto) 0.6, Eos # (Auto) 0.3, Baso # (Auto) 0.0, Sodium 137, Potassium 3.5, Chloride 104, Carbon Dioxide 25, Anion Gap 11.5, BUN 20, Creatinine 0.70, Estimated Creat Clear 107, Estimated GFR 113, Est GFR ( Amer) 137, Glucose 260 H, Calcium 9.1, Total Bilirubin 0.5, AST 25, ALT 28, Alkaline Phosphatase 97, Total Protein 6.4, Albumin 4.2, Globulin 2.2, A lbumin/Globulin Ratio 1.9 H, Lipase 54, Procalcitonin 0.062 11/29/24 13:25 11/29/24 13:25 Orders (Tests/Meds): ED MEDICATIONS Discontinued Medications Generic Name Dose Route Start Last Admin Trade Name Ruizq PRN Reason Stop Dose Admin Acetaminophen 1,000 mg 11/29/24 12:44 11/29/24 13:01 Acetaminophen 1,000mg/100ml Vial IV 11/29/24 12:45 1,000 mg ONCE ONE Administration Sodium Chloride 1,000 mls @ 999 mls/hr 11/29/24 12:44 11/29/24 13:01 Sod Chlor 0.9% 1000ml Bag IV 11/29/24 13:44 999 mls/hr .Q1H1M ONE Administration Iopamidol 75 ml 11/29/24 14:23 11/29/24 14:24 Iopamidol-370 (76%);100ml Bottle IV 11/29/24 14:24 75 ml ONCE ONE Administration Ondansetron HCl 4 mg 11/29/24 12:44 11/29/24 13:01 Ondansetron 4mg/2ml Vial IV 11/29/24 12:45 4 mg ONCE ONE Administration Sodium Chloride 10 ml 11/29/24 14:23 11/29/24 14:24 Sodium Chloride 0.9% 10ml Syr (Rad Only) IV 11/29/24 14:24 10 ml ONCE ONE Administration Vancomycin HCl 125 mg 11/29/24 15:37 Vancomycin Hcl 50mg/Ml 150ml Kit PO 11/29/24 15:38 ONCE ONE ORDERS Category Date Time Status CT abdomen pelvis w con Stat Cat Scan 11/29/24 12:44 Completed CBC w/Auto Diff [Complete Blood Count Auto Diff] Stat Lab 11/29/24 13:25 Completed CMP [Comprehensive Metabolic Panel] Stat Lab 11/29/24 13:25 Completed Diarrhea 23 Panel, PCR Stat Lab 11/29/24 12:57 Completed Lipase Stat Lab 11/29/24 13:25 Completed Procalcitonin Stat Lab 11/29/24 13:25 Completed Rapid PCR Covid and Flu A/B Stat Lab 11/29/24 12:33 Completed Medical Decision Narrative: In summary patient is a 64-year-old male who presents to the emergency department for evaluation of nausea watery diarrhea and abdominal cramping for 3 days. Patient is initially hypertensive at 198/89 pulse 81 respiratory rate is 18 satting at 98% on room air normal sinus rhythm on bedside monitor upon arrival, temperature of 90.7. Physical exam is remarkable for a soft nontender abdomen with no rebound no guarding no rigidity and hyperactive bowel sounds. Differential diagnosis includes infectious versus noninfectious gastroenteritis versus colitis versus diverticulitis etc. Initial workup will be conducted with hematologic labs stool studies CT scan abdomen pelvis. Initial interventions include crystalloid bolus Toradol Tylenol Zofran. Initial workup reviewed by me shows that his white count is normal H&H is normal no neutrophilic shift and the remainder of his hematologic labs are nonactionable. Calcitonin 0.062. However his stool study shows C. difficile. My informal interpretation of CT scan abdomen pelvis however reveals no significant bowel wall thickening or stranding or dilated bowel free air or fluid prior to radiology read.. Upon repeat evaluation patient had significant improvement in his constitutional symptoms and is currently tolerating oral intake with no nausea. Given this patient is appropriate for discharge for uncomplicated C. difficile infection with a prescription of vancomycin given and first dose given here. Critical Care Critical Care Time Critical Care Time: Yes Attestation: On 11/29/24, the high probability of a clinically significant, sudden or life threatening deterioration of the following system(s) required my full and direct attention, intervention and personal management. The time I documented below is in addition to time spent performing reported procedures but includes the following listed in this critical care notation. Total Time Total Critical Care Time: 35
[2024-11-29 12:41] LABS: Coronavirus 19, PCR Not Detected (NotDetected); Influenza A, PCR Not Detected (NotDetected); Influenza B, PCR Not Detected (NotDetected)
--- NOTE | 2024-11-29 12:44 | CT_ITS ---
FINAL REPORT TECHNIQUE: After the administration of intravenous contrast, axial images were obtained through the abdomen and pelvis by computed tomography. This study was performed with technique to keep radiation doses as low as reasonably achievable, (ALARA). Individualized dose reduction techniques using automated exposure control or adjustment of the MA and/or KV according to the patient's size were employed. CLINICAL HISTORY: Abdominal pain diarrhea for 3 days COMPARISON: 02/10/2024 FINDINGS: Abdomen: The lung bases are clear. The liver is normal in size and attenuation. The spleen is unremarkable. Patient is status postcholecystectomy. The adrenals are normal. The pancreas is unremarkable. The kidneys enhance appropriately. The aorta is normal in caliber. There is no free fluid or adenopathy. There is no evidence of bowel obstruction. Pelvis: The appendix is normal. Prostate is moderately enlarged. The urinary bladder is unremarkable. There is no free fluid or adenopathy. IMPRESSION: Stable, moderate prostate enlargement. Reviewed, Interpreted and Dictated by Lauri Sanders MD Transcribed by Rosa Schofield Authenticated and [facility]
[2024-11-29 13:01] LABS: Adenovirus F 40/41, stool Not Detected (NotDetected); Astrovirus Not Detected (NotDetected); Campylobacter Not Detected (NotDetected); Cryptosporidium Not Detected (NotDetected); Cyclospora Cayetanesis Not Detected (NotDetected); Entamoeba histolytica Not Detected (NotDetected); Enteroaggregative E coli Not Detected (NotDetected); Enteropathogenic E coli Not Detected (NotDetected); Enterotoxigenic E coli Not Detected (NotDetected); Giardia lamblia Not Detected (NotDetected); Norovirus Not Detected (NotDetected); Plesimonas Shigalloides, PCR Not Detected (NotDetected); Rotavirus A Not Detected (NotDetected); Salmonella, PCR Not Detected (NotDetected); Sapovirus Not Detected (NotDetected); Shiga-like toxin E coli Not Detected (NotDetected); Shigella Enterovasive E coli Not Detected (NotDetected); Vibrio Cholerae Not Detected (NotDetected); Vibrio, PCR Not Detected (NotDetected); Yersinia Entercolitica, PCR Not Detected (NotDetected)
[2024-11-29] MEDS: ONDANSETRON 4MG/2ML VIAL 4 MG IV (13:01)
[2024-11-29] MEDS: ACETAMINOPHEN 1,000MG/100ML VIAL 1000 MG IV (13:01)
[2024-11-29] MEDS: 0.9 % SODIUM CHLORIDE 1000ML 1,000 ML 999 ML IV (13:01)
[2024-11-29 13:38] LABS: Basophils % 0.5 % (0.1-2.0); Eosinophils # 0.3 K/mm3 (0.0-0.4); Eosinophils % 3.5 % (0.1-12.0); Hemoglobin 13.6 g/dL (14.1-18.0); Lymphocytes # 2.3 K/mm3 (0.7-4.5); Lymphocytes % 27.8 % (10-50); Mean Corpuscular HGB Conc 33.2 g/dL (31.8-35.4); Mean Corpuscular Hemoglobin 29.5 pg (27.0-31.2); Mean Corpuscular Volume 88.9 fl (80-94); Mean Platelet Volume 10.2 fl (7.4-10.4); Monocytes # 0.6 K/mm3 (0.1-1.0); Monocytes % 7.4 % (1.7-9.3); Neutrophils % 60.6 % (37.0-80.0); Platelet Count 196 K/mm3 (142-424); Red Blood Count 4.61 M/mm3 (4.60-6.20); Red Cell Distribution Width 12.3 % (11.5-17.5); White Blood Count 8.3 K/mm3 (4.8-10.8)
[2024-11-29 14:08] LABS: Alanine Aminotransferase 28 U/L (12-78); Albumin Level 4.2 g/dl (3.5-5.0); Albumin/Globulin Ratio 1.9 (1.1-1.8); Alkaline Phosphatase 97 U/L (38-126); Anion Gap 11.5 mEq/L (5-15); Aspartate Amino Transferase 25 U/L (17-59); Bilirubin,Total 0.5 mg/dl (0.2-1.3); Blood Urea Nitrogen 20 mg/dl (9-20); Calcium 9.1 mg/dl (8.4-10.2); Carbon Dioxide 25 mmol/L (22.0-30.0); Chloride 104 mmol/L (98-107); Creatinine Clearance Estimated 107 mL/min (50-200); Estimated Glomerular Filt Rate 113 ml/min (>60); GFR (African American) 137 ML/MIN (>60); Globulin 2.2 g/dL (1.3-3.2); Glucose 260 mg/dl (74-100); Lipase 54 U/L (23-300); Potassium 3.5 mmoL/L (3.5-5.1); Sodium 137 mmol/L (136-145); Total Protein,Serum 6.4 g/dl (6.3-8.2)
[2024-11-29] MEDS: SODIUM CHLORIDE 0.9% 10ML SYR (RAD ONLY) 10 ML IV (14:24)
[2024-11-29] MEDS: IOPAMIDOL-370 (76%);100ML BOTTLE 75 ML IV (14:24)
[2024-11-29 14:26] LABS: Procalcitonin 0.062 ng/mL (0.0-2.0)
[2024-11-29 15:32] LABS: Clostridium Difficile A/B, PCR Detected (NotDetected)
[2024-11-29 15:57] VITALS: BP 120/80; PULSE 78; RESP 18; TEMP 37.2
--- NOTE | 2024-11-29 16:33 | PC.NURSE ---
CONTACTED PT ABOUT HIS MEDICINE WAS HERE HE NEEDED FOR C DIFF AND HE WAS DISCHARGE BEFORE GIVEN MEDS
== END 2024-11-29 15:58 | disposition home or self-care (01) ==
PROVIDERS: Physician Assistant; Emergency Provider Emergency Medicine; PCP Family Medicine
DX: A04.72 Enterocolitis due to Clostridium difficile, not specified as recurrent (principal); R11.0 Nausea; R19.7 Diarrhea, unspecified; M79.10 Myalgia, unspecified site; R10.9 Unspecified abdominal pain
CPT/HCPCS: 74177; 80053; 83690; 84145; 85025; 87507; 87636; 96361; 96374; 96375; 99291; J0131; J2405; J7030; Q9967

== ENCOUNTER 2025-01-03 22:07 | Emergency (ER) | payer MEDICARE, SELFPAY ==
--- NOTE | 2025-01-03 22:02 | ECG_ITS ---
APPROVED REPORT Exam: Resting ECG HR:75 bpm ECG Measurements Heart Rate 75 AXES QRSd 86 QRS 49 QT 393 T 16 QTc 422 Conclusion SUPRAVENTRICULAR RHYTHM ABNORMAL RHYTHM ECG UNCONFIRMED REPORT Electronically signed by : KATY BARRAZA, 01/04/2025 06:24:26
[2025-01-03 22:10] VITALS: BP 185/80; PULSE 82; RESP 20; TEMP 36.8; O2SAT 98; BMI 33.0
--- NOTE | 2025-01-03 22:57 | HMH.EDGENADL ---
Discharge Plan Disposition Patient Disposition: Home, Self-Care Prescriptions Prescriptions: No Action omeprazole 40 mg capsule,delayed release(DR/EC) 40 mg PO QDAY topiramate [Topamax] 25 mg tablet 25 mg PO QDAY albuterol sulfate 90 mcg/actuation HFA aerosol inhaler 1 inh inhalation Q6H Qty: 6.7 2RF furosemide [Lasix] 40 mg tablet 40 mg PO DAILY Qty: 30 5RF hydralazine 25 mg tablet 25 mg PO QID PRN (Reason: blood pressure) Qty: 120 2RF Rx Instructions: take one tab if bp greater than 180 sulfamethoxazole-trimethoprim [Bactrim DS] 800-160 mg tablet 1 tab PO BID 7 Days Qty: 14 0RF phenazopyridine [Pyridium] 200 mg tablet 200 mg PO TID 3 Days Qty: 9 0RF lamotrigine 25 mg tablet 50 mg PO HS Patient Comments: TAKE 2 TABLETS BY MOUTH ONCE DAILY AT NIGHT finasteride [Proscar] 5 mg tablet 5 mg PO DAILY Qty: 90 3RF propranolol 120 MG capsule,extended release 24 hr 120 mg PO QDAY metformin 850 MG tablet 750 mg PO DAILY furosemide 20 MG tablet 20 mg PO DAILY pioglitazone [Actos] 45 mg Tablet 45 mg PO DAILY valsartan 320 mg tablet 160 mg PO DAILY insulin lispro protamin-lispro 100 unit/mL (75-25) Insulin Pen 30 unit SQ DAILY Rx Instructions: 60 UNITS IN AM, 30 UNITS AT NOON, 60 UNITS AT BEDTIME fluoxetine 60 mg Tablet 60 mg PO DAILY potassium chloride 20 mEq Tablet Extended Release 20 meq PO DAILY Ozempic 2 mg/dose (8 mg/3 mL) pen injector 1 mg SQ WEEKLY furosemide [Lasix] 40 mg tablet 40 mg PO DAILY Qty: 2 0RF ondansetron 4 mg tablet,disintegrating 4 mg PO QID PRN (Reason: nausea and vomiting) Qty: 10 0RF Referrals Follow up/Referrals: Ryne Bergman MD [Primary Care Provider] - See instructions Activity Restrictions/Add. Instructions Additional Instructions/Restrictions: Please follow-up with your primary care provider. Please return to the emergency department if you develop any new or worsening symptoms or become concerned for your health. Clinical Impressions Clinical Impression: Hypertension, Chest pain Print Language Print Language: [place] Discharge ED Provider: [place],Roney General Adult HPI General Chief complaint: Chest Pain Stated complaint: Chest Pain Time Seen by Provider: 01/03/25 22:56 Mode of Arrival: Ambulatory Description of Symptoms (Recalled from ER Triage Doc. by RN): chest pain started a couple days ago per patient, today has gotten worse. Pressure is alot worse. Pt took bp at home and seen it was elevated, Pt states pain is radiating towards his left arm. History of Present Illness HPI narrative: 64-year-old male with history of hypertension diabetes presents for chest pain. He reports has been ongoing for the last few days but got worse today. He reports that it is primarily left-sided, sometimes worse with palpation and movement. He came in today because his blood pressure was higher than normal, up to the 180s systolic. Pain sometimes radiates. He reports that he has been more physically active over the last few days doing outdoor chores as well. He took some antacids but it did not help. Denies any significant fever cough shortness of breath Related Data Home Medications ?Medication ?Instructions ?Recorded ?Confirmed omeprazole 40 mg capsule,delayed 40 mg PO QDAY stomach 10/05/17 11/29/24 release topiramate 25 mg tablet (Topamax) 25 mg PO QDAY STILES 10/05/17 11/29/24 propranolol 120 mg capsule,24 120 mg PO QDAY bp 04/03/19 11/29/24 hr,extended release furosemide 20 mg tablet 20 mg PO DAILY Fluid 02/28/21 11/29/24 metformin 850 mg tablet 750 mg PO DAILY Diabetes 02/28/21 11/29/24 fluoxetine 60 mg tablet 60 mg PO DAILY 03/17/24 11/29/24 insulin lispro protamine-lispro 30 unit SQ DAILY 03/17/24 11/29/24 100 unit/mL (75-25) subcutaneous pen pioglitazone 45 mg tablet (Actos) 45 mg PO DAILY 03/17/24 11/29/24 potassium chloride 20 mEq 20 meq PO DAILY 03/17/24 11/29/24 tablet,extended release semaglutide 2 mg/dose (8 mg/3 mL) 1 mg SQ WEEKLY 03/17/24 11/29/24 subcutaneous pen injector (Ozempic) valsartan 320 mg tablet 160 mg PO DAILY 03/17/24 11/29/24 lamotrigine 25 mg tablet 50 mg PO HS 08/07/24 11/29/24 Previous Rx's ?Medication ?Instructions ?Recorded furosemide 40 mg tablet (Lasix) 40 mg PO DAILY volume overload #2 04/15/24 tabs phenazopyridine 200 mg tablet 200 mg PO TID 3 days #9 tabs 04/17/24 (Pyridium) sulfamethoxazole 800 1 tab PO BID 7 days #14 tabs 04/17/24 mg-trimethoprim 160 mg tablet (Bactrim DS) albuterol sulfate 90 mcg/actuation 1 inh inhalation Q6H #6.7 grams 04/19/24 aerosol inhaler furosemide 40 mg tablet (Lasix) 40 mg PO DAILY #30 tabs 04/19/24 hydralazine 25 mg tablet 25 mg PO QID PRN blood pressure 04/19/24 #120 tabs finasteride 5 mg tablet (Proscar) 5 mg PO DAILY #90 tabs 11/20/24 ondansetron 4 mg disintegrating 4 mg PO QID PRN nausea and 11/29/24 tablet vomiting #10 tabs Allergies Allergy/AdvReac Type Severity Reaction Status Date / Time oxybutynin Allergy Severe angioedema Verified 08/07/24 10:46 morphine (MORPHINE) Allergy Unknown Verified 08/07/24 10:46 [facility] Disclaimer: The information contained in this section may have been updated after the patient was seen, as this information can be updated by other users. Medical History Urinary tract infection Anxiety and depression Hyperlipidemia Hypertension H/O carpal tunnel syndrome Diabetes mellitus, type 2 Sleep apnea History of chest pain Surgical History H/O discectomy History of cholecystectomy Family History Other Bone cancer Kidney failure Lung cancer Social History Smoking Status: Unknown if ever smoked alcohol intake: never substance use type: denies use current occupational status: retired and disabled Travel in the last 8 weeks: None household members: spouse housing: house current occupational exposures/hazards: No caffeine: Yes Have you lived/traveled outside [place] in past 30 days?: No Contact w/someone who lives/traveled outside [place] past 30 days?: No Exposure to someone with infectious disease in past 14 days?: No Do you have a fever (greater than 100.4 F or 38 C)?: No Have you tested positive for COVID-19: No Exposed to someone with COVID-19 in past 14 days?: No Do you have a sore throat?: No Do you have a cough?: No Do you have any weakness?: No Do you have any diarrhea?: No Are you experiencing any unusual bleeding?: No Do you have any muscle aches/pain?: No Do you have any abdominal pain?: No Are you experiencing loss of taste or smell?: No Other Medical History Have you received the Flu Vaccine for this season: Yes Have you received the Pneumonia Vaccine: Yes ROS Obtained: Yes All systems reviewed & no additional complaints except as documented Physical Exam General General appearance: alert and in no apparent distress Head Head exam: atraumatic and normocephalic Eye Eye exam: Present normal appearance, PERRL and EOMI ENT ENT exam: Present normal oropharynx and normal external ear exam Neck Neck exam: Present normal inspection and full ROM Chest Chest inspection: Present normal inspection and symmetric chest wall rise; Absent tenderness Respiratory Respiratory exam: Present normal lung sounds bilaterally; Absent respiratory distress Cardiovascular Cardiovascular exam: Present regular rate and normal rhythm Abdominal Exam Abdominal exam: Present soft; Absent distention, tenderness or guarding Extremities Exam Extremities exam: Present normal inspection; Absent edema or joint swelling Back Exam Back exam: Present normal inspection; Absent tenderness Neurological Exam Neurological exam: Present alert and oriented X3; Absent motor sensory deficit Psychiatric Psychiatric exam: Present normal affect and normal mood Skin Skin exam: Present warm, dry and normal color Lymphatic Lymphatic Findings: no adenopathy Medical Decision Making Medical Records Medical records reviewed: Yes I reviewed the patient's medical records. Screening: Per USPSTF and CDC recommendations, given the prevalence of disease in our region, it is our hospital?s policy to screen for HIV and viral Hepatitis for all patients aged 18 and over and those with ongoing risk factors. Jay Inquiry Pt receiving controlled substance: No Jay was queried for this patient: No Vital Signs: 01/03/25 22:10 01/04/25 02:19 01/04/25 02:19 Temperature 98.3 F 98.1 F Temperature Source Oral Pulse Rate 66 66 Pulse Rate [Left] 82 Respiratory Rate 20 18 Blood Pressure 152/70 H Blood Pressure [Right Arm] 185/80 H Blood Pressure Mean [Right Arm] 115 02 Sat by Pulse Oximetry 98 Oxygen Delivery Method Room Air Room Air Lab Data Lab results reviewed: Yes I reviewed the patient's lab results. Lab Results 01/03/25 22:23: WBC 10.0, RBC 4.50 L, Hgb 13.6 L, Hct 40.7 L, MCV 90.4, MCH 30.2, MCHC 33.4, RDW 12.7, Plt Count 215, MPV 9.8, Neut % (Auto) 60.8, Lymph % (Auto) 27.7, [place] % (Auto) 7.2, Eos % (Auto) 3.5, Baso % (Auto) 0.5, Neut # (Auto) 6.1, Lymph # (Auto) 2.8, [place] # (Auto) 0.7, Eos # (Auto) 0.4, Baso # (Auto) 0.1, D-Dimer 0.47, Sodium 139, Potassium 3.7, Chloride 107, Carbon Dioxide 23, Anion Gap 12.7, BUN 20, Creatinine 0.90, Estimated Creat Clear 107, Estimated GFR 84, Est GFR ( Amer) 102, Glucose 176 H, Calcium 8.6, Magnesium 2.2, Total Bilirubin 0.4, AST 25, ALT 24, Alkaline Phosphatase 99, Troponin I < 0.01, Total Protein 6.7, Albumin 3.8, Globulin 2.9, Albumin/Globulin Ratio 1.3 01/04/25 01:15: Troponin I < 0.01 01/03/25 22:23 01/03/25 22:23 Orders (Tests/Meds): ED MEDICATIONS Discontinued Medications Generic Name Dose Route Start Last Admin Trade Name Freq PRN Reason Stop Dose Admin Acetaminophen 1,000 mg 01/03/25 23:07 01/03/25 23:41 Acetaminophen 500mg Tab PO 01/03/25 23:08 1,000 mg ONCE ONE Administration Aspirin 324 mg 01/03/25 23:07 01/03/25 23:41 Aspirin 81mg Chewable Tablet PO 01/03/25 23:08 324 mg ONCE ONE Administration Belladonna Alkaloids 60 ml 01/03/25 23:07 01/03/25 23:42 Belladonna Alkaloids 60 Ml Ml PO 01/03/25 23:08 60 ml ONCE ONE Administration ORDERS Category Date Time Status CXR --portable [XR chest portable] Stat Exams 01/03/25 23:08 Completed CBC w/Auto Diff [Complete Blood Count Auto Diff] Stat Lab 01/03/25 22:23 Completed CMP [Comprehensive Metabolic Panel] Stat Lab 01/03/25 22:23 Completed D-Dimer Stat Lab 01/03/25 22:23 Completed Magnesium Stat Lab 01/03/25 22:23 Completed Troponin I Q3H Lab 01/03/25 22:23 Completed Troponin I Q3H Lab 01/04/25 01:15 Completed HEART Score History (anamnesis): Moderately suspicious ECG: Normal Age: >65 years Risk factors: 1-2 risk factors Troponin: </= normal limit HEART Score: 4 Medical Decision Narrative: 64-year-old male with history of hypertension and diabetes presents for a few days of chest pain worsening today. History was obtained via interactive discussion with patient. On arrival, patient is [afebrile, hemodynamically stable, satting appropriately, alert, oriented x4, GCS 15], moving all extremities spontaneously. Full physical exam performed and significant for clear lungs bilaterally, no significant physical exam abnormality Differential includes but is not limited to ACS, PE, musculoskeletal chest pain, acute aortic syndrome, esophageal pathology. Patient was given aspirin, Tylenol, GI cocktail for symptomatic management and correction of underlying abnormalities. Workup initiated including CBC CMP EKG chest x-ray troponin x 2 D-dimer. On re-evaluation, patient [remains afebrile, HD stable.] Laboratory workup independently interpreted by me and significant for negative initial troponin, negative D-dimer, no significant electrolyte derangement, no significant leukocytosis. Imaging independently interpreted by me and significant for clear lungs bilaterally without focal opacity. See radiology read for full review of final results. EKG independently interpreted by me and significant for normal sinus rhythm, rate of 75, normal QT and QRS, no significant ST elevation. Interpreted at 2300. Patient was placed in ED observation status for serial cardiac troponins, cardiac monitoring and to assess the need for possible admission. On reassessment after period of observation, my interpretation of environmental monitoring technician patient remains in normal sinus rhythm. Patient reports some improvement in chest pain. Repeat troponin returns undetectably low. Given negative troponin, I do not feel patient requires admission for expedited cardiac evaluation at this time. As needed appropriate for outpatient management. Recommended follow-up PCP for further assessment and possible changes to blood pressure medications, return precautions given. Patient discharged in stable condition. Procedures Risk/Benefits of Procedure(s) Were Explained: Yes Critical Care Critical Care Time Critical Care Time: No
--- NOTE | 2025-01-03 23:08 | XR_ITS ---
PROCEDURE INFORMATION: Exam: XR Chest Exam date and time: 01/03/2025 11:30 PM Age: 64 years old Clinical indication: Pain; Chest pressure; Additional info: Chest pain TECHNIQUE: Imaging protocol: Radiologic exam of the chest. Views: 1 view. COMPARISON: CR XR CHEST PORTABLE 04/15/2024 5:25 PM FINDINGS: Lungs: Calcified granuloma medial right lung base. No consolidation. Pleural spaces: Unremarkable. No pleural effusion. No pneumothorax. Heart/Mediastinum: Unremarkable. No cardiomegaly. Vasculature: Unremarkable. Bones/joints: Evidence for ACDF. IMPRESSION: No acute findings.
[2025-01-03 23:32] LABS: Basophils # 0.1 K/mm3 (0-0.2); Basophils % 0.5 % (0.1-2.0); Eosinophils # 0.4 K/mm3 (0.0-0.4); Eosinophils % 3.5 % (0.1-12.0); Hematocrit 40.7 % (42.0-52.0); Hemoglobin 13.6 g/dL (14.1-18.0); Lymphocytes # 2.8 K/mm3 (0.7-4.5); Lymphocytes % 27.7 % (10-50); Mean Corpuscular HGB Conc 33.4 g/dL (31.8-35.4); Mean Corpuscular Hemoglobin 30.2 pg (27.0-31.2); Mean Corpuscular Volume 90.4 fl (80-94); Mean Platelet Volume 9.8 fl (7.4-10.4); Monocytes # 0.7 K/mm3 (0.1-1.0); Monocytes % 7.2 % (1.7-9.3); Neutrophils # 6.1 K/mm3 (1.8-7.8); Neutrophils % 60.8 % (37.0-80.0); Nucleated Red Blood Cells # 0 10^3/uL; Nucleated Red Blood Cells % 0 %; Platelet Count 215 K/mm3 (142-424); Red Cell Distribution Width 12.7 % (11.5-17.5); Red Cell Distribution Width-SD 41.5 fL
[2025-01-03] MEDS: ASPIRIN 81MG CHEWABLE TABLET 324 MG PO (23:41)
[2025-01-03] MEDS: ACETAMINOPHEN 500MG TAB 1000 MG PO (23:41)
[2025-01-03 23:42] LABS: Alanine Aminotransferase 24 U/L (12-78); Albumin Level 3.8 g/dl (3.5-5.0); Albumin/Globulin Ratio 1.3 (1.1-1.8); Alkaline Phosphatase 99 U/L (38-126); Anion Gap 12.7 mEq/L (5-15); Aspartate Amino Transferase 25 U/L (17-59); Bilirubin,Total 0.4 mg/dl (0.2-1.3); Blood Urea Nitrogen 20 mg/dl (9-20); Calcium 8.6 mg/dl (8.4-10.2); Carbon Dioxide 23 mmol/L (22.0-30.0); Chloride 107 mmol/L (98-107); Creatinine Clearance Estimated 107 mL/min (50-200); Estimated Glomerular Filt Rate 84 ml/min (>60); GFR (African American) 102 ML/MIN (>60); Globulin 2.9 g/dL (1.3-3.2); Glucose 176 mg/dl (74-100); Magnesium 2.2 mg/dl (1.6-2.3); Potassium 3.7 mmoL/L (3.5-5.1); Sodium 139 mmol/L (136-145); Total Protein,Serum 6.7 g/dl (6.3-8.2)
[2025-01-03] MEDS: BELLADONNA ALKALOIDS 60 ML ML PO (23:42)
[2025-01-03 23:46] LABS: D-Dimer 0.47 ug/mL (0.0-0.5)
[2025-01-04] LABS: Troponin I < 0.01 ng/ml (0.00-0.034)
[2025-01-04 01:55] LABS: Troponin I < 0.01 ng/ml (0.00-0.034)
[2025-01-04 02:19] VITALS: BP 152/70; PULSE 66; RESP 18; TEMP 36.7; O2SAT 98
== END 2025-01-04 02:33 | disposition home or self-care (01) ==
PROVIDERS: Emergency Provider Emergency Medicine; PCP Family Medicine
DX: R07.9 Chest pain, unspecified (principal); I10 Essential (primary) hypertension
CPT/HCPCS: 99284; 71045; 80053; 83735; 84484; 85025; 85378; 93005

== ENCOUNTER 2025-01-11 18:42 | Emergency (ER) | payer MEDICARE, SELFPAY ==
[2025-01-11 18:45] VITALS: BP 149/72; PULSE 76; RESP 19; TEMP 36.6; O2SAT 97; BMI 34.4
--- NOTE | 2025-01-11 18:45 | CT_ITS ---
PROCEDURE INFORMATION: Exam: CTA Head With Contrast, Arteriography Exam date and time: 01/11/2025 6:53 PM Age: 64 years old Clinical indication: Stroke-like symptoms; Other: Possible stroke TECHNIQUE: Imaging protocol: Computed tomographic angiography of the head with contrast. Exam focused on the arteries. 3D rendering (Not supervised by radiologist): MIP and/or 3D reconstructed images were created by the technologist. Radiation optimization: All CT scans at this facility use at least one of these dose optimization techniques: automated exposure control; mA and/or kV adjustment per patient size (includes targeted exams where dose is matched to clinical indication); or iterative reconstruction. Contrast material: ISO 370; Contrast volume: 80 ml; Contrast route: INTRAVENOUS (IV); COMPARISON: CT HEAD/BRAIN WO CON 01/11/2025 6:51 PM FINDINGS: ANTERIOR CIRCULATION: Right internal carotid artery: Intracranial segment is patent with no significant stenosis. No aneurysm. Right middle cerebral artery: No occlusion or significant stenosis. No aneurysm. Right anterior cerebral artery: No occlusion or significant stenosis. No aneurysm. Left internal carotid artery: Intracranial segment is patent with no significant stenosis. No aneurysm. Left middle cerebral artery: No occlusion or significant stenosis. No aneurysm. Left anterior cerebral artery: No occlusion or significant stenosis. No aneurysm. POSTERIOR CIRCULATION: Right vertebral artery: No occlusion or significant stenosis. No aneurysm. Left vertebral artery: No occlusion or significant stenosis. No aneurysm. Basilar artery: No occlusion or significant stenosis. No aneurysm. Right posterior cerebral artery: No occlusion or significant stenosis. No aneurysm. Left posterior cerebral artery: No occlusion or significant stenosis. No aneurysm. Brain: No definite mass, mass effect, or midline shift. Cerebral ventricles: No ventriculomegaly. Bones/joints: Unremarkable. No acute fracture. Soft tissues: Unremarkable. IMPRESSION: No large vessel stenosis or occlusion.
--- NOTE | 2025-01-11 18:45 | XR_ITS ---
PROCEDURE INFORMATION: Exam: XR Chest Exam date and time: 01/11/2025 6:57 PM Age: 64 years old Clinical indication: Shortness of breath; Additional info: SOA TECHNIQUE: Imaging protocol: Radiologic exam of the chest. Views: 1 view. COMPARISON: CR XR CHEST PORTABLE 01/03/2025 11:30 PM FINDINGS: Lungs: No acute cardiopulmonary findings. Pleural spaces: Unremarkable. No pleural effusion. No pneumothorax. Heart/Mediastinum: Unremarkable. No cardiomegaly. Bones/joints: Anterior fusion C-spine. IMPRESSION: No acute cardiopulmonary findings.
--- NOTE | 2025-01-11 18:45 | CT_ITS ---
PROCEDURE INFORMATION: Exam: CT Head Without Contrast Exam date and time: 01/11/2025 6:51 PM Age: 64 years old Clinical indication: Stroke-like symptoms; Other: Left sided numbness/paresthesia; Additional info: Possible stroke TECHNIQUE: Imaging protocol: Computed tomography of the head without contrast. Radiation optimization: All CT scans at this facility use at least one of these dose optimization techniques: automated exposure control; mA and/or kV adjustment per patient size (includes targeted exams where dose is matched to clinical indication); or iterative reconstruction. Other technique: STROKE PROTOCOL was implemented. COMPARISON: MR CERVICAL SPINE WO CON 01/30/2021 3:28 PM FINDINGS: Brain: Normal. No hemorrhage. Unremarkable white matter. No mass effect. Cerebral ventricles: No ventriculomegaly. Paranasal sinuses: Visualized sinuses are unremarkable. No fluid levels. Mastoid air cells: Visualized mastoid air cells are well aerated. Bones: Unremarkable. No acute fracture. Soft tissues: Unremarkable. IMPRESSION: No acute intracranial abnormality. ASSESSMENT: ASPECTS ([place] Stroke Program Early CT Score) is 10.
--- NOTE | 2025-01-11 18:45 | CT_ITS ---
PROCEDURE INFORMATION: Exam: CTA Neck With Contrast Exam date and time: 01/11/2025 6:53 PM Age: 64 years old Clinical indication: Stroke-like symptoms; Other: Possible stroke TECHNIQUE: Imaging protocol: Computed tomographic angiography of the neck with contrast. Exam focused on the cervical segments of the vasculature. 3D rendering (Not supervised by radiologist): MIP and/or 3D reconstructed images were created by the technologist. Radiation optimization: All CT scans at this facility use at least one of these dose optimization techniques: automated exposure control; mA and/or kV adjustment per patient size (includes targeted exams where dose is matched to clinical indication); or iterative reconstruction. Contrast material: ISO 370; Contrast volume: 80 ml; Contrast route: INTRAVENOUS (IV); COMPARISON: MR CERVICAL SPINE WO CON 01/30/2021 3:28 PM FINDINGS: Right common carotid artery: No stenosis. No dissection or occlusion. Right internal carotid artery: No stenosis of the extracranial segment. No dissection or occlusion. Right external carotid artery: No occlusion or stenosis of the origin. Left common carotid artery: No stenosis. No dissection or occlusion. Left internal carotid artery: No stenosis of the extracranial segment. No dissection or occlusion. Left external carotid artery: No occlusion or stenosis of the origin. Right vertebral artery: No stenosis. No dissection or occlusion. Left vertebral artery: No stenosis. No dissection or occlusion. Soft tissues: Normal. No significant soft tissue swelling. Bones/joints: Anterior fusion C-spine. IMPRESSION: No hemodynamically significant extracranial cerebrovascular stenosis detected. REFERENCES: NASCET CRITERIA. The degree of stenosis in the cervical segment of the internal carotid artery is based on NASCET criteria. Normal is no stenosis. Mild is less than 50% stenosis. Moderate is 50-69% stenosis. Severe is 70% to 99% stenosis. Total occlusion is no detectable patent lumen.
--- NOTE | 2025-01-11 18:46 | ECG_ITS ---
APPROVED REPORT Exam: Resting ECG HR:69 bpm ECG Measurements Heart Rate 69 AXES FL 193 P 51 QRSd 94 QRS -2 QT 294 T 49 QTc 313 Conclusion SINUS RHYTHM MINIMAL VOLTAGE CRITERIA FOR LVH, CONSIDER NORMAL VARIANT [MEETS CRITERIA IN ONE OF: R(aVL), S(V1), R(V5), R(V5/V6)+S(V1)] NONSPECIFIC T-WAVE ABNORMALITY No STEMI Electronically signed by : DION MICHELLE, 01/12/2025 23:33:37
--- NOTE | 2025-01-11 18:49 | PC.NURSE ---
Radiology at bedside taking pt to ct scan
--- NOTE | 2025-01-11 18:50 | PC.NURSE ---
@ 1844 Stroke alerted pt @ 1845 at bedside- NIHSS 1 L face numbness
[2025-01-11 18:51] LABS: POC Glucose,Bedside 76 (70-110)
[2025-01-11 18:52] LABS: Basophils # 0.1 K/mm3 (0-0.2); Basophils % 0.5 % (0.1-2.0); Eosinophils # 0.5 K/mm3 (0.0-0.4); Eosinophils % 3.7 % (0.1-12.0); Hematocrit 41.3 % (42.0-52.0); Hemoglobin 13.7 g/dL (14.1-18.0); Lymphocytes # 4.3 K/mm3 (0.7-4.5); Lymphocytes % 33.9 % (10-50); Mean Corpuscular HGB Conc 33.2 g/dL (31.8-35.4); Mean Corpuscular Hemoglobin 30.6 pg (27.0-31.2); Mean Corpuscular Volume 92.4 fl (80-94); Mean Platelet Volume 9.5 fl (7.4-10.4); Monocytes # 1.1 K/mm3 (0.1-1.0); Monocytes % 8.8 % (1.7-9.3); Neutrophils # 6.7 K/mm3 (1.8-7.8); Neutrophils % 52.9 % (37.0-80.0); Nucleated Red Blood Cells # 0 10^3/uL; Nucleated Red Blood Cells % 0 %; Platelet Count 254 K/mm3 (142-424); Red Blood Count 4.47 M/mm3 (4.60-6.20); Red Cell Distribution Width 12.9 % (11.5-17.5); Red Cell Distribution Width-SD 43.7 fL; White Blood Count 12.6 K/mm3 (4.8-10.8)
--- NOTE | 2025-01-11 18:52 | HMH.ITSTN ---
GFR completion/results were overrode for the use of contrast media by the Physician on a risk vs. benefit situation with this patient. (stroke alert)
[2025-01-11] MEDS: 0.9 % SODIUM CHLORIDE 50 ML VIAL IV (18:53)
[2025-01-11] MEDS: IOPAMIDOL-370 (76%);100ML BOTTLE 80 ML IV (18:53)
[2025-01-11] MEDS: SODIUM CHLORIDE 0.9% 10ML SYR (RAD ONLY) 10 ML IV (18:53)
[2025-01-11 19:08] LABS: Alanine Aminotransferase 32 U/L (12-78); Albumin Level 4.3 g/dl (3.5-5.0); Albumin/Globulin Ratio 1.4 (1.1-1.8); Alkaline Phosphatase 98 U/L (38-126); Anion Gap 15.2 mEq/L (5-15); Aspartate Amino Transferase 28 U/L (17-59); Bilirubin,Total 0.5 mg/dl (0.2-1.3); Blood Urea Nitrogen 18 mg/dl (9-20); Calcium 9.5 mg/dl (8.4-10.2); Carbon Dioxide 24 mmol/L (22.0-30.0); Chloride 106 mmol/L (98-107); Chol/HDL Ratio 2.4 (1-3.5); Cholesterol 133 mg/dl (140-200); Estimated Glomerular Filt Rate 75 ml/min (>60); GFR (African American) 90 ML/MIN (>60); Glucose 78 mg/dl (74-100); HDL Cholesterol 56 mg/dl (40-60); Potassium 3.2 mmoL/L (3.5-5.1); Sodium 142 mmol/L (136-145); Total Protein,Serum 7.3 g/dl (6.3-8.2); Triglycerides 76 mg/dl (30-150); VLDL Cholesterol 15 mg/dL (0-40)
[2025-01-11 19:11] LABS: Ethyl Alcohol < 10 mg/dl (0-10)
[2025-01-11 19:12] LABS: Activated Partial Thrombo Time 26.7 seconds (22.8-30.6); INR 0.91 (0.9-1.1); Prothrombin Time 10.3 seconds (10.1-12.5)
[2025-01-11 19:19] LABS: Direct LDL Cholesterol 55.84 mg/dL (100-129)
[2025-01-11 19:41] VITALS: BP 137/59; PULSE 67; RESP 17; O2SAT 97
--- NOTE | 2025-01-11 19:41 | PC.NURSE ---
NIH 0 at this time. Pt states symptoms resolved
[2025-01-11 19:46] LABS: Troponin I < 0.01 ng/ml (0.00-0.034)
[2025-01-11 19:57] LABS: POC Glucose,Bedside 68 (70-110)
--- NOTE | 2025-01-11 19:57 | PC.NURSE ---
Pt given orange juice container to drink
[2025-01-11 20:07] VITALS: BP 155/68; PULSE 65; RESP 20; O2SAT 98
[2025-01-11 20:12] LABS: Microscopic, Urine URINE MICROSCOPIC (MICROSCOPIC)
[2025-01-11 20:13] LABS: Appearance,Urine CLEAR (Clear); Bilirubin,Urine Negative (Negative); Blood, Urine Negative (Negative); Color,Urine YELLOW (Yellow); Glucose,Urine (UA) 3+ (Negative); Ketones,Urine Negative (Negative); Leukocyte Esterase,Urine Negative (Negative); Nitrate,Urine Negative (Negative); Protein,Urine Negative (Negative); Specific Gravity, Urine 1.015 (1.005-1.030); Urobilinogen,Urine 0.2 EU/dl (0.2)
[2025-01-11 20:24] LABS: Amphetamine/Metha Screen,Urine Negative ng/ml (<1000)
[2025-01-11 20:25] LABS: Barbiturates Screen,Urine Negative ng/ml (<200); Benzodiazepines Screen,Urine Negative ng/ml (<200)
[2025-01-11 20:26] LABS: HIV Combo NEGATIVE (Negative)
[2025-01-11 20:26] LABS: Cannabinoid Screen,Urine Negative ng/ml (<50)
[2025-01-11 20:27] LABS: Cocaine Screen,Urine Negative ng/ml (<300); Methadone Screen,Urine Negative ng/ml (<300)
[2025-01-11 20:28] LABS: Opiate Screen,Urine Positive ng/ml (<300)
[2025-01-11] MEDS: ASPIRIN 325MG TABLET 325 MG PO (20:28)
[2025-01-11 20:29] LABS: Phencyclidine Screen,Urine Negative ng/ml (<25)
[2025-01-11] MEDS: POTASSIUM CHLORIDE 20MEQ TAB 40 MEQ PO (20:29)
[2025-01-11 20:35] LABS: Hepatitis C Ab Qual. W/ RFX NEGATIVE (Negative)
[2025-01-11 20:39] VITALS: BP 134/70; PULSE 64; RESP 14; TEMP 36.6; O2SAT 95
[2025-01-11 20:46] LABS: WBC,Urine Occasional #/hpf (0-3)
[2025-01-11 20:47] LABS: Bacteria,Urine Trace /lpf
--- NOTE | 2025-01-11 21:03 | HMH.EDGENADL ---
Discharge Plan Disposition Patient Disposition: Home, Self-Care Prescriptions Prescriptions: New aspirin 81 mg capsule 81 mg PO DAILY Qty: 30 0RF No Action omeprazole 40 mg capsule,delayed release(DR/EC) 40 mg PO QDAY topiramate [Topamax] 25 mg tablet 25 mg PO QDAY albuterol sulfate 90 mcg/actuation HFA aerosol inhaler 1 inh inhalation Q6H Qty: 6.7 2RF furosemide [Lasix] 40 mg tablet 40 mg PO DAILY Qty: 30 5RF hydralazine 25 mg tablet 25 mg PO QID PRN (Reason: blood pressure) Qty: 120 2RF Rx Instructions: take one tab if bp greater than 180 sulfamethoxazole-trimethoprim [Bactrim DS] 800-160 mg tablet 1 tab PO BID 7 Days Qty: 14 0RF phenazopyridine [Pyridium] 200 mg tablet 200 mg PO TID 3 Days Qty: 9 0RF lamotrigine 25 mg tablet 50 mg PO HS Patient Comments: TAKE 2 TABLETS BY MOUTH ONCE DAILY AT NIGHT finasteride [Proscar] 5 mg tablet 5 mg PO DAILY Qty: 90 3RF propranolol 120 MG capsule,extended release 24 hr 120 mg PO QDAY metformin 850 MG tablet 750 mg PO DAILY furosemide 20 MG tablet 20 mg PO DAILY pioglitazone [Actos] 45 mg Tablet 45 mg PO DAILY valsartan 320 mg tablet 160 mg PO DAILY insulin lispro protamin-lispro 100 unit/mL (75-25) Insulin Pen 30 unit SQ DAILY Rx Instructions: 60 UNITS IN AM, 30 UNITS AT NOON, 60 UNITS AT BEDTIME fluoxetine 60 mg Tablet 60 mg PO DAILY potassium chloride 20 mEq Tablet Extended Release 20 meq PO DAILY Ozempic 2 mg/dose (8 mg/3 mL) pen injector 1 mg SQ WEEKLY furosemide [Lasix] 40 mg tablet 40 mg PO DAILY Qty: 2 0RF ondansetron 4 mg tablet,disintegrating 4 mg PO QID PRN (Reason: nausea and vomiting) Qty: 10 0RF Referrals Follow up/Referrals: Ryne Bergman MD [Primary Care Provider] - See instructions Activity Restrictions/Add. Instructions Additional Instructions/Restrictions: You were evaluated in the emergency department today. We are concerned for possible mini stroke or TIA as a cause of your symptoms. It is very important that you follow-up closely with your primary care provider over the next 24 to 48 hours. We are starting you on aspirin to take daily. Make sure you continue taking your cholesterol medication. We also feel you would benefit from referral to a neurologist, which your primary care provider can help set up. Return to the emergency department right away for new or worsening symptoms. Clinical Impressions Clinical Impression: Transient neurological symptoms, Hypokalemia, Hypoglycemia Stand Alone Forms Stand Alone Forms: Work/School Release Instructions Patient Instructions: DI for Transient Ischemic Attack, DI for Hypokalemia, DI for Hypoglycemia Print Language Print Language: Estonian Discharge ED Provider: Nicole Bernstein General Adult HPI General Chief complaint: Neuro Symptoms/Deficit Stated complaint: STROKE ALERT Time Seen by Provider: 01/11/25 18:44 Mode of Arrival: Family Vehicle Source of Information: Patient and Medical Record Description of Symptoms (Recalled from ER Triage Doc. by RN): Pt states at 1800 tonight he experienced an episode of left eye blindness and left sided facial numbness. He also reports an episode of L arm numbness. Currently, his vision is only blurry with corrective lenses. His numbness is still present to left side of face. NIHSS 0 at this time. History of Present Illness HPI narrative: This patient is a 64-year-old male with a history of hypertension, hyperlipidemia, type 2 diabetes, CHF, NATACHA presented to the emergency department for evaluation concern for blurred vision to his left eye, left-sided facial tingling, and left arm heaviness. He states that this started at 1800, approximately 40 minutes prior to arrival. He notes he was well prior to this. He checked his sugar at that time to see if it was low and it was 220, so he took his insulin but did not eat. Upon arrival, fingerstick blood glucose is 70. He notes his symptoms seem like they are starting to improve, but his left eye is still a bit blurry. His left face feels a little funny, but the left arm feels normal now. He was well prior to this with no other concerns or complaints. Related Data Home Medications ?Medication ?Instructions ?Recorded ?Confirmed omeprazole 40 mg capsule,delayed 40 mg PO QDAY stomach 10/05/17 11/29/24 release topiramate 25 mg tablet (Topamax) 25 mg PO QDAY STILES 10/05/17 11/29/24 propranolol 120 mg capsule,24 120 mg PO QDAY bp 04/03/19 11/29/24 hr,extended release furosemide 20 mg tablet 20 mg PO DAILY Fluid 02/28/21 11/29/24 metformin 850 mg tablet 750 mg PO DAILY Diabetes 02/28/21 11/29/24 fluoxetine 60 mg tablet 60 mg PO DAILY 03/17/24 11/29/24 insulin lispro protamine-lispro 30 unit SQ DAILY 03/17/24 11/29/24 100 unit/mL (75-25) subcutaneous pen pioglitazone 45 mg tablet (Actos) 45 mg PO DAILY 03/17/24 11/29/24 potassium chloride 20 mEq 20 meq PO DAILY 03/17/24 11/29/24 tablet,extended release semaglutide 2 mg/dose (8 mg/3 mL) 1 mg SQ WEEKLY 03/17/24 11/29/24 subcutaneous pen injector (Ozempic) valsartan 320 mg tablet 160 mg PO DAILY 03/17/24 11/29/24 lamotrigine 25 mg tablet 50 mg PO HS 08/07/24 11/29/24 Previous Rx's ?Medication ?Instructions ?Recorded furosemide 40 mg tablet (Lasix) 40 mg PO DAILY volume overload #2 04/15/24 tabs phenazopyridine 200 mg tablet 200 mg PO TID 3 days #9 tabs 04/17/24 (Pyridium) sulfamethoxazole 800 1 tab PO BID 7 days #14 tabs 04/17/24 mg-trimethoprim 160 mg tablet (Bactrim DS) albuterol sulfate 90 mcg/actuation 1 inh inhalation Q6H #6.7 grams 04/19/24 aerosol inhaler furosemide 40 mg tablet (Lasix) 40 mg PO DAILY #30 tabs 04/19/24 hydralazine 25 mg tablet 25 mg PO QID PRN blood pressure 04/19/24 #120 tabs finasteride 5 mg tablet (Proscar) 5 mg PO DAILY #90 tabs 11/20/24 ondansetron 4 mg disintegrating 4 mg PO QID PRN nausea and 11/29/24 tablet vomiting #10 tabs aspirin 81 mg capsule 81 mg PO DAILY #30 caps 01/11/25 Allergies Allergy/AdvReac Type Severity Reaction Status Date / Time oxybutynin Allergy Severe angioedema Verified 08/07/24 10:46 morphine (MORPHINE) Allergy Unknown Verified 08/07/24 10:46 PFSH PFSH Disclaimer: The information contained in this section may have been updated after the patient was seen, as this information can be updated by other users. Medical History Urinary tract infection Anxiety and depression Hyperlipidemia Hypertension H/O carpal tunnel syndrome Diabetes mellitus, type 2 Sleep apnea History of chest pain Surgical History H/O discectomy History of cholecystectomy Family History Other Bone cancer Kidney failure Lung cancer Social History Smoking Status: Former smoker tobacco type: cigarettes alcohol intake: never substance use type: denies use current occupational status: retired and disabled Travel in the last 8 weeks: None household members: spouse housing: house current occupational exposures/hazards: No caffeine: Yes Have you lived/traveled outside [place] in past 30 days?: No Contact w/someone who lives/traveled outside US past 30 days?: No Exposure to someone with infectious disease in past 14 days?: No Do you have a fever (greater than 100.4 F or 38 C)?: No Have you tested positive for COVID-19: No Exposed to someone with COVID-19 in past 14 days?: No Do you have a sore throat?: No Do you have a cough?: No Do you have any weakness?: No Do you have any diarrhea?: No Are you experiencing any unusual bleeding?: No Do you have any muscle aches/pain?: No Do you have any abdominal pain?: No Are you experiencing loss of taste or smell?: No Other Medical History Have you received the Flu Vaccine for this season: Yes Have you received the Pneumonia Vaccine: Yes ROS Obtained: Yes All systems reviewed & no additional complaints except as documented Physical Exam General General appearance: alert and in no apparent distress Head Head exam: atraumatic and normocephalic Eye Eye exam: Present normal appearance, PERRL and EOMI ENT ENT exam: Present normal exam, normal oropharynx, mucous membranes moist and normal external ear exam Neck Neck exam: Present normal inspection, full ROM and trachea midline; Absent tenderness Chest Chest inspection: Present normal inspection and symmetric chest wall rise; Absent tenderness Respiratory Respiratory exam: Present normal lung sounds bilaterally; Absent respiratory distress, wheezes, stridor or accessory muscle use Cardiovascular Cardiovascular exam: Present regular rate and normal rhythm Abdominal Exam Abdominal exam: Present soft; Absent distention, tenderness or guarding Extremities Exam Extremities exam: Present normal inspection, full ROM and normal capillary refill; Absent tenderness or edema Back Exam Back exam: Present normal inspection and full ROM; Absent tenderness Neurological Exam Neurological exam: Present alert, oriented X3, CN II-XII intact and normal gait; Absent motor sensory deficit Psychiatric Psychiatric exam: Present normal affect and normal mood Skin Skin exam: Present warm and dry Medical Decision Making Medical Records Medical records reviewed: Yes I reviewed the patient's medical records. Screening: Per USPSTF and CDC recommendations, given the prevalence of disease in our region, it is our hospital?s policy to screen for HIV and viral Hepatitis for all patients aged 18 and over and those with ongoing risk factors. Jay Inquiry Pt receiving controlled substance: No Vital Signs: 01/11/25 18:45 01/11/25 19:41 01/11/25 20:07 Temperature 97.8 F Temperature Source Oral Pulse Rate 67 65 Pulse Rate [Right] 76 Respiratory Rate 19 17 20 Blood Pressure 137/59 L 155/68 H Blood Pressure [Right Arm] 149/72 H Blood Pressure Mean [Right Arm] 97 Blood Pressure Source [Right Arm] Automatic Cuff Blood Pressure Position Sitting 02 Sat by Pulse Oximetry 97 97 98 Oxygen Delivery Method Room Air Room Air Room Air 01/11/25 20:39 Temperature 97.9 F Temperature Source Oral Pulse Rate 64 Pulse Rate [Right] Respiratory Rate 14 Blood Pressure 134/70 Blood Pressure [Right Arm] Blood Pressure Mean [Right Arm] Blood Pressure Source [Right Arm] Blood Pressure Position Sitting 02 Sat by Pulse Oximetry Oxygen Delivery Method Room Air Lab Data Lab results reviewed: Yes I reviewed the patient's lab results. Lab Results 01/11/25 18:44: POC Glucose 76 01/11/25 18:45: WBC 12.6 H, RBC 4.47 L, Hgb 13.7 L, Hct 41.3 L, MCV 92.4, MCH 30.6, MCHC 33.2, RDW 12.9, Plt Count 254, MPV 9.5, Neut % (Auto) 52.9, Lymph % (Auto) 33.9, [place] % (Auto) 8.8, Eos % (Auto) 3.7, Baso % (Auto) 0.5, Neut # (Auto) 6.7, Lymph # (Auto) 4.3, [place] # (Auto) 1.1 H, Eos # (Auto) 0.5 H, Baso # (Auto) 0.1, PT 10.3, INR 0.91, APTT 26.7, Sodium 142, Potassium 3.2 L, Chloride 106, Carbon Dioxide 24, Anion Gap 15.2 H, BUN 18, Creatinine 1.00, Estimated GFR 75, Est GFR ( Amer) 90, Glucose 78, Calcium 9.5, Total Bilirubin 0.5, AST 28, ALT 32, Alkaline Phosphatase 98, Troponin I < 0.01, Total Protein 7.3, Albumin 4.3, Globulin 3.0, Albumin/Globulin Ratio 1.4, Triglycerides 76, Cholesterol 133 L, LDL Cholesterol Direct 55.84 L, VLDL Cholesterol 15, HDL Cholesterol 56, Cholesterol/HDL Ratio 2.4, Plasma/Serum Alcohol < 10, HCV Ab KESHIA w/Rflx PCR Qn Negative, HIV Ag/Ab Combo Qual Negative 01/11/25 19:50: POC Glucose 68 L 01/11/25 20:04: Urine Color Yellow, Urine Appearance Clear, Urine pH 5.0, Ur Specific [place] 1.015, Urine Protein Negative, Urine Glucose (UA) 3+, Urine Ketones Negative, Urine Blood Negative, Urine Nitrate Negative, Urine Bilirubin Negative, Urine Urobilinogen 0.2, Ur Leukocyte Esterase Negative, Urine RBC None, Urine WBC Occasional, Ur Squamous Epith Cells 3-5, Urine Bacteria Trace, Urine Opiates Screen Positive H, Urine Methadone Screen Negative, Ur Barbituates Screen Negative, Ur Phencyclidine Scrn Negative, Ur Amphetamines Screen Negative, U Benzodiazepines Scrn Negative, Urine Cocaine Screen Negative, U Marijuana (THC) Screen Negative 01/11/25 18:45 01/11/25 18:45 Orders (Tests/Meds): ED MEDICATIONS Discontinued Medications Generic Name Dose Route Start Last Admin Trade Name Freq PRN Reason Stop Dose Admin Aspirin 325 mg 01/11/25 20:17 01/11/25 20:28 Aspirin 325mg Tablet PO 01/11/25 20:18 325 mg ONCE ONE Administration Iopamidol 80 ml 01/11/25 18:51 01/11/25 18:53 Iopamidol-370 (76%);100ml Bottle IV 01/11/25 18:52 80 ml ONCE ONE Administration Potassium Chloride 40 meq 01/11/25 20:17 01/11/25 20:29 Potassium Chloride 20meq Tab PO 01/11/25 20:18 40 meq ONCE ONE Administration Sodium Chloride 10 ml 01/11/25 18:45 Sodium Chloride 0.9% 10ml Flush Syringe IV 02/10/25 18:44 NEEDED PRN Maintain IV Site Sodium Chloride 10 ml 01/11/25 18:51 01/11/25 18:53 Sodium Chloride 0.9% 10ml Syr (Rad Only) IV 02/10/25 18:50 10 ml NEEDED PRN Administration Maintain IV Site Sodium Chloride 50 ml 01/11/25 18:51 01/11/25 18:53 0.9 % Sodium Chloride 50 Ml Vial IV 01/11/25 18:52 50 ml ONCE ONE Administration ORDERS Category Date Time Status CT angio head Stat Cat Scan 01/11/25 18:[address] angio neck Stat Cat Scan 01/11/25 18:[address] head/brain wo con Stat Cat Scan 01/11/25 18:45 Completed XR chest portable Stat Exams 01/11/25 18:45 Completed Activated Partial Thrombo Time Stat Lab 01/11/25 18:45 Completed Complete Blood Count Auto Diff Stat Lab 01/11/25 18:45 Completed Comprehensive Metabolic Panel Stat Lab 01/11/25 18:45 Completed Drug Screen,Urine Stat Lab 01/11/25 20:04 Completed Ethyl Alcohol Stat Lab 01/11/25 18:45 Completed HIV Combo Stat Lab 01/11/25 18:45 Completed Hepatitis C Ab Qual. W/ RFX Stat Lab 01/11/25 18:45 Completed Lipid Panel Stat Lab 01/11/25 18:45 Completed POC Glucose,Bedside Routine Lab 01/11/25 18:44 Completed POC Glucose,Bedside Routine Lab 01/11/25 19:50 Completed Prothrombin Time INR Stat Lab 01/11/25 18:45 Completed Troponin I Q3H Lab 01/11/25 21:45 Ordered Troponin I Stat Lab 01/11/25 18:45 Completed Urinalysis and Microscopic Stat Lab 01/11/25 20:04 Completed ECG Data Tracing #1: I reviewed this ECG and interpreted as documented below: Normal sinus rhythm with ventricular to [address] changes concerning for STEMI. Normal intervals ECG initial impression date: 01/11/25 ECG initial impression time: 20:17 Medical Decision Narrative: In summary, this patient is a 64-year-old male presenting to the Emergency Department for evaluation of blurred vision of the left eye, left facial tingling, left arm heaviness. Differential diagnoses considered include but are not limited to CVA, intra cranial hemorrhage, hypoglycemia, other stroke. Ruling out the most morbid conditions drove assessment. It should be noted patient's history includes type 2 diabetes, hypertension hyperlipidemia, CHF which may or may not be at goal therapy. This complicates all aspects of care by increasing patient's risk for morbidity. I reviewed patient's past medical records and noted previous ED evaluation several days ago for chest pain. On exam, the patient is sitting upright in no acute distress. He has subjective blurred vision and subjective strength sensation of the left face, but he is completely neurologically intact on assessment with an NIH stroke scale of 0. Cardiopulmonary and abdominal exams are benign. Workup included emergent stroke CT scans, as patient arrives as a stroke alert. Stroke labs were also sent, including troponin. EKG was obtained and does not demonstrate any acute ST changes. I independently interpreted CT scans prior to the radiologist read and noted no intracranial hemorrhage, no large vessel occlusion. Please see their read for final interpretation. Labs were obtained that demonstrated hypoglycemia, mild leukocytosis, mild anemia. Labs are otherwise reassuring. Troponin negative. On reassessment, patient had complete resolution of his symptoms and was feeling normal. He was given some juice for his hypoglycemia. I considered TNK for strokelike symptoms, however I do not feel it is indicated with NIH stroke scale of 0 and resolved symptoms. I considered thrombectomy, or patient has no large vessel occlusion. I advised patient to get admitted for MRI for further assessment to exclude stroke and for further monitoring, as he is high risk. He states that he would rather go home and follow-up outpatient. Given this, will start him on aspirin. He notes he is already on a cholesterol medicine. Patient Critical Care Critical Care Time Critical Care Time: Yes Attestation: On 01/11/25, the high probability of a clinically significant, sudden or life threatening deterioration of the following system(s) required my full and direct attention, intervention and personal management. The time I documented below is in addition to time spent performing reported procedures but includes the following listed in this critical care notation. Total Time Total Critical Care Time: 45
== END 2025-01-11 20:40 | disposition home or self-care (01) ==
PROVIDERS: Emergency Provider Emergency Medicine; PCP Family Medicine
DX: E87.6 Hypokalemia (principal); R29.818 Other symptoms and signs involving the nervous system; E11.649 Type 2 diabetes mellitus with hypoglycemia without coma; Z11.59 Encounter for screening for other viral diseases; Z11.4 Encounter for screening for human immunodeficiency virus [HIV]
CPT/HCPCS: 70450; 70496; 70498; 71045; 80053; 80061; 80307; 80320; 81001; 82962; 84484; 85025; 85610; 85730; 86803; 87389; 93005; 99291; Q9967

== ENCOUNTER 2025-02-14 10:51 | Outpatient (CLI) | payer MEDICARE, SELFPAY ==
[2025-02-14 11:48] LABS: Hematocrit 40.4 % (42.0-52.0); Hemoglobin 13.4 g/dL (14.1-18.0); Mean Corpuscular HGB Conc 33.2 g/dL (31.8-35.4); Mean Corpuscular Volume 90.4 fl (80-94); Nucleated Red Blood Cells # 0 10^3/uL; Nucleated Red Blood Cells % 0 %; Platelet Count 223 K/mm3 (142-424); Red Blood Count 4.47 M/mm3 (4.60-6.20); Red Cell Distribution Width 12.4 % (11.5-17.5); Red Cell Distribution Width-SD 40.8 fL; White Blood Count 9.2 K/mm3 (4.8-10.8)
[2025-02-14 11:52] LABS: Chloride 108 mmol/L (98-107)
[2025-02-14 11:53] LABS: Potassium 3.9 mmoL/L (3.5-5.1); Sodium 138 mmol/L (136-145)
[2025-02-14 11:56] LABS: Anion Gap 9.9 mEq/L (5-15); Blood Urea Nitrogen 24 mg/dl (9-20); Calcium 9.2 mg/dl (8.4-10.2); Carbon Dioxide 24 mmol/L (22.0-30.0); Estimated Glomerular Filt Rate 67 ml/min (>60); GFR (African American) 81 ML/MIN (>60); Glucose 297 mg/dl (74-100); Iron 80 ug/dL (49-181)
[2025-02-14 12:31] LABS: Ferritin 214 ng/ml (17.9-464)
[2025-02-14 13:13] LABS: Vitamin B12 871 pg/mL (239-931)
== END 2025-02-14 23:59 | disposition home or self-care (01) ==
LOC: LAB 10:52
PROVIDERS: PCP Family Medicine; Visit Provider Physician Assistant
DX: D64.9 Anemia, unspecified (principal)
CPT/HCPCS: 36415; 80048; 82607; 82728; 83540; 85027

== ENCOUNTER 2025-03-05 09:33 | Outpatient (POV) | payer MEDICARE, SELFPAY ==
--- OUTSIDE RECORDS SUMMARY | 2025-01-10 09:45 | XMS_ITS | Encounter Summary ---
Author Organization [facility] Address [address] [id number] Care Team Providers Care Bobbin Dumper Name Role Phone Ryne Bergman MD Primary Care Provider [phone] Abiola Loyola STEEL TESTER Unavailable [phone] Aarti Maldonado MD Unavailable [phone] Reason for Referral * Imaging (Routine) - Authorized Specialty Diagnoses / Procedures Referred By Kriss colin Referred To Contact Radiology Diagnoses Benign prostatic hyperplasia with urinary frequency Procedures MR Prostate w and wo IV Contrast Aarti Maldonado MD [address] [address] Phone: tel: fax: Referral ID Status Reason Start Date Expiration Date V isits Requested Visits Authorized [id number] Authorized 01/10/2025 07/12/2026 1 1 Reason for Visit * Reason Comments Cystoscope * Other Medical (Routine) - Closed Specialty Diagnoses / Procedures Referred By Kriss colin Referred To Contact Urology Diagnoses Microhematuria Procedures Cysto Aarti Maldonado MD [address] [address] Phone: tel: fax: Referral ID Status Reason Start Date Expiration Date Visits Re quested Visits Authorized [id number] Closed 11/30/2024 06/01/2026 1 1 Encounter Details Date Type Department Care Team (Late st Contact Info) Description 01/10/2025 9:45 AM EDT Office Visit [facility] [address] [place] [address] Aarti Maldonado MD [address] [place] [address] Benign prostatic hyperplasia with urinary frequency (Primary Dx); Microhematuria Social History Tobacco Use Types Packs/Day Years Used Date Smoking Tobacco: Some Days Cigarettes 0.3 1.2 Started: 03/27/2024 Passive Smoke Exposure: Current Smokeless [...] Procedure discussed: discussed risks, benefits and alternatives Tankroom Tender present: no Timeout: timeout called immediately prior to procedure Prep: patient was prepped and draped in usual sterile fashion Prep type: Betadine Anesthesia: local anesthesia Procedure Details Cystoscope type: flexible Cystoscopy route: transurethral Cystoscopy location: sauk-suiattle bladder Irrigation used: saline Position: supine Urethra [...] risk of bleeding. There is a small jail risk of developing scar tissue (stricture or [...] Upcoming Encounters Date Type Department Care Team (Late st Contact Info) Description 03/12/2025 7:50 AM EDT Appointment [facility] Radiology [address] [place] [address] 03/19/2025 Hospital Encounter [facility] OPERATING ROOM [address] [place] [address] Aarti Maldonado MD [address] [place] [address] 04/18/2025 10:30 AM EDT Office Visit Medical Office Building Urology [address] [facility], [address] [place] [id number] Aarti Maldonado MD [address] [place] [address] Scheduled Orders Name Type Priority Associated [...] USING HOLMIUM LASER BPH (benign prostatic hyperplasia) documented as of this encounter Procedures Procedure [...] Procedure discussed: discussed risks, benefits and alternatives Tankroom Tender present: no Timeout: timeout called immediately prior to procedure Prep: patient was prepped and draped in usual sterile fashion Prep type: Betadine Anesthesia: local anesthesia Procedure Details Cystoscope type: flexible Cystoscopy route: transurethral Cystoscopy location: sauk-suiattle bladder Irrigation used: saline Position: supine Urethra [...] - 1.20 mg/dL 01/10/2025 1:54 PM EDT [facility] eGFRcr 96.2 mL/min/1.7 3m*2 01/10/2025 1:54 PM EDT [facility] Comment:Reported eGFRcr in m L/min/1.73m2 is based the CKD-EPI 2020 equation that does not use a race coefficient. Blood Venous blood specimen / Unknown Venipuncture / Unknown 01/10/2025 11:55 AM EDT 01/10/2025 11:55 AM EDT Aarti Maldonado MD LAB BLOOD ORDERABLES Final R esult [facility] [address] [place] [address] * POC US Bladder Volume (01/10/2025 10:21 AM EDT) Urine, Volume 76 mL IMAGING Anatomical Region Laterality Modality Other us Aarti Maldonado MD IMG POINT OF CARE ULTRASOUND Final Result * (ABNORMAL) POCT URINALYSIS DIPSTICK (01/10/2025 10:01 AM EDT) POCT Urine Color Yellow 01/10/2025 10:03 AM EDT [facility] POCT Urine Clarity Clear 01/10/2025 10:03 AM EDT [facility] POCT Urine Glucose >=1000(A) Negative mg/dL 01/10/2025 10:03 AM EDT [facility] POCT Urine Bilirubin Negative Negative mg/dL 01/10/2025 10:03 AM EDT [facility] POCT Urine Ketones Negative Negative mg/dL 01/10/2025 10:03 AM EDT [facility] POCT Urine Specific [place] 1.020 1.005 - 1.030 01/10/2025 10:03 AM EDT [facility] POCT Urine Blood Negative Negative 01/10/2025 10:03 AM EDT [facility] POCT pH, Urine 5.5 5.0 - 8.0 01/10/2025 10:03 AM EDT [facility] POCT Protein, Urine Negative Negative mg/dL 01/10/2025 10:03 AM EDT [facility] POCT Urobilinogen, Urine 0.2 0.2, 1.0 EU/dL 01/10/2025 10:03 AM EDT [facility] POCT Nitrite, Urine Negative Negative 01/10/2025 10:03 AM EDT [facility] POCT Urine Leukocyte Esterase Negative Negative 01/10/2025 10:03 AM EDT [facility] Urine 01/10/2025 10:0 1 AM EDT 01/10/2025 10:03 AM EDT us Aarti Maldonado MD LAB POINT OF CARE TE ST DOCKED DEVICE UNSOLICITED RESULTS Final Result [facility] [address], [place] documented in this encounter Visit Diagnoses Diagnosis Benign prostatic hyperplasia with urinary frequency- Primary Microhematuria documented in this encounter Administered Medications Inactive [...] documented as of this encounter Care Teams Bobbin Dumper Relationship Specialty Start Date End Date Ryne Bergman MD [address] [place] [address] PCP - General 04/21/24 Abiola Loyola APRN [address] [place] [address] Nurse Practitioner Urology 10/30/24 Aarti Maldonado MD [address] [place] [address] Surgeon Urology 01/10/25 documented as of this encounter
--- OUTSIDE RECORDS SUMMARY | 2025-03-05 09:37 | XMS_ITS | Encounter Summary ---
Author Organization [facility] Address [address] [place] [address] Care Team Providers Care Typo Machine Operator Name Role Phone Ryne Bergman MD Primary Care Provider [phone] Abiola Loyola BOLT LOADER Unavailable [phone] Aarti Maldonado MD Unavailable [phone] Encounter Details Date Type Department Care Team (Late st Contact Info) Description 01/12/2025 Telephone [facility] [address], 2[address] [place] [address] Aarti Maldonado MD [address] [place] [address] Social History Tobacco Use Types Packs/Day Years Used Date Smoking Tobacco: Some Days Cigarettes 0.3 1.2 Started: 03/27/2024 Passive Smoke Exposure: Current Smokeless Tobacco: Never Alcohol Use Standard Drinks/Week Comments Not Currently [...] on file documented as of this encounter Miscellaneous Notes * Telephone Encounter - Anika Hackett - 01/12/2025 10:46 AM EDT Called patient to schedule surgery with Dr. Maldonado - surgery arranged - discussed surgery directions with patient - patient knows to expect a call from our preop anesthesia clinic the Wednesday prior tosurgery with surgery and arrival time - all questions answered and surgery directions mailed to patient- address verified with patient Patient will also be getting a urine culture done 2 weeks prior to surgery at [facility] - urine culture order mailed to patient alone with surgery directions - patient is aware of this plan documented in this encounter Plan of Treatment Upcoming Encounters Date Type Department Care Team (Late st Contact Info) Description 03/12/2025 7:50 AM EDT Appointment [facility] Radiology [address] [place] [address] 03/19/2025 Hospital Encounter [facility] OPERATING ROOM [address] [place] [address] Aarti Maldonado MD [address] [address] 04/18/2025 10:30 AM EDT Office Visit Medical Office Building Urology [address] [facility], [address] [place] [address] Aarti Maldonado MD [address] [address] Scheduled Procedures Name Priority Associated Diagnoses Date/Ti me ENUCLEATION, PROSTATE, TRANSURETHRAL, USING HOLMIUM LASER BPH (benign prostatic hyperplasia) documented as of this encounter Goals Goal Patient Goal Type Associated Problems Recent Progress Patient-Stated? Author Autogenerat ed Goal Care Plan Autogenerated Problem No Anika Hackett documented as of this encounter Visit Diagnoses Not on filedocumented in this encounter Additional Health Concerns Active Problems Noted Date Diagnosed Date Autogenerated Problem 02/13/2025 Assessment Noted Time PHQ-9 Depression Total Score: 0 01/11/20 25 9:55 AM EDT A fall risk assessment has been complete d for the patient 01/10/2025 9:55 AM EDT A Body Mass Index follow-up plan has been documented for the patient 01/10/2025 12:34 PM EDT documented as of this encounter Care Teams Typo Machine Operator Relationship Specialty Start Date End Date Ryne Bergman MD [address] [place] [address] PCP - General 04/21/24 Abiola Loyola APRN [address] [place] [address] Nurse Practitioner Urology 10/30/24 Aarti Maldonado MD [address] [place] [address] Surgeon Urology 01/10/25 documented as of this encounter
--- OUTSIDE RECORDS SUMMARY | 2025-03-05 09:37 | XMS_ITS | Encounter Summary ---
Author Organization [facility] Address [address] [place] [address] Care Team Providers Care Corn Cooker Name Role Phone Ryne Bergman MD Primary Care Provider [phone] Abiola Loyola RIGGER CHIEF Unavailable [phone] Aarti Maldonado MD Unavailable [phone] Encounter Details Date Type Department Care Team (Late st Contact Info) Description 01/10/2025 Telephone [facility] U[facility] [address], 2[address] [place] [address] Aarti Maldonado MD [address] [place] [address] Social History Tobacco Use Types [...] on file documented as of this encounter Functional Status * Over the [...] encounter Miscellaneous Notes * Telephone Encounter - Cate James - 01/10/2025 12:22 PM EDT 01/10/2025 Patient has a MRI Prostate with and without IOV contrast on 03/12/2025 at 7:45 am The patient stated, ' I am claustrophobic '. Sent an inbasket message to the Endo Team to have protocols forthe patient. KJa documented in this encounter Plan of Treatment Upcoming Encounters Date Type Department Care Team (Late st Contact Info) Description 03/12/2025 7:50 AM EDT Appointment [facility] Radiology [address] [place] [address] 03/19/2025 Hospital Encounter [facility] OPERATING ROOM [address] [place] [address] Aarti Maldonado MD [address] [address] 04/18/2025 10:30 AM EDT Office Visit Medical Office Building Urology [address] [facility], [address] [place] [address] Aarti Maldonado MD [address] [address] Scheduled Procedures Name Priority Associated Diagnoses Date/Ti me ENUCLEATION, PROSTATE, TRANSURETHRAL, USING HOLMIUM LASER BPH (benign prostatic hyperplasia) documented as of this encounter Visit Diagnoses Not on filedocumented in this encounter Additional Health Concerns Assessment Noted Time PHQ-9 Depression Total Score: 0 01/11/20 9:55 AM EDT A fall risk assessment has been complete d for the patient 01/10/2025 9:55 AM EDT A Body Mass Index follow-up plan has been documented for the patient 01/10/2025 12:34 PM EDT documented as of this encounter Care Teams Corn Cooker Relationship Specialty Start Date End Date Ryne Bergman MD [address] [place] [address] PCP - General 04/21/24 Abiola Loyola APRN [address] [address] Nurse Practitioner Urology 10/30/24 Aarti Maldonado MD [address] [place] [address] Surgeon Urology 01/10/25 documented as of this encounter
--- OUTSIDE RECORDS SUMMARY | 2025-03-05 09:37 | XMS_ITS | Encounter Summary ---
Author Organization [facility] Address [address] [place] [address] Care Team Providers Care R&D Lab Technician Name Role Phone Ryne Bergman MD Primary Care Provider [phone] Abiola Loyola CHICK ROOM SUPERVISOR Unavailable [phone] Aarti Maldonado MD Unavailable [phone] Encounter Details Date Type Department Care Team (Late Contact Info) Description 10/30/2019 Orders Only External Location [address] [place] [address] Provider, External Social History Tobacco Use Types Packs/Day Years Used Date Smoking Tobacco: Never Assessed Sex and Gender Information Value Date Recorded Sex Assigned at Male 10/30/2024 8:01 AM EST Legal Sex Male 1:17 PM EDT Gender Identity Not on file Sexual Orientation Not on file documented as of this encounter Plan of Treatment Upcoming Encounters Date Type Department Care Team (Late Contact Info) Description 03/12/2025 7:50 AM EDT Appointment [facility] Radiology [address] [place] [address] 03/19/2025 Hospital Encounter [facility] OPERATING ROOM [address] [place] [address] Aarti Maldonado MD [address] [facility] [address] [place] [address] 04/18/2025 10:30 AM EDT Office Visit Medical Office Building Urology [address] [facility], [address] [place] [address] Aarti Maldonado MD [address] [place] [address] Scheduled Procedures Name Priority Associated Diagnoses Date/Ti me ENUCLEATION, PROSTATE, TRANSURETHRAL, USING HOLMIUM LASER BPH (benign prostatic hyperplasia) documented as of this encounter Procedures Procedure Name Priority Date/Time Associated Diagnosis Comments CT THORACIC OUTSIDE IMAGES 10/30/2019 2:35 PM EST documented in this encounter Results * CT THORACIC OUTSIDE IMAGES (10/30/2019 2:35 PM EST) Anatomical Region Laterality Modality Computed Tomogra phy 10/30/2019 2:35 PM EST External Provider IMG CT PROCEDURES Final Result documented in this encounter Visit Diagnoses Not on filedocumented in this encounter Care Teams R&D Lab Technician Relationship Specialty Start Date End Date Ryne Bergman MD [address] [place] [address] PCP - General 04/21/24 Abiola Loyola APRN [address] [place] [address] Nurse Practitioner Urology 10/30/24 Aarti Maldonado MD [address] [place] [address] Surgeon Urology 01/10/25 documented as of this encounter
--- OUTSIDE RECORDS SUMMARY | 2025-03-05 09:37 | XMS_ITS | Encounter Summary ---
Author Organization [facility] Address [address] [place] [address] Care Team Providers Care Recording Engineer Name Role Phone Ryne Bergman MD Primary Care Provider [phone] Abiola Loyola BEAM SAW OPERATOR Unavailable [phone] Aarti Maldonado MD Unavailable [phone] Encounter Details Date Type Department Care Team (Late st Contact Info) Description 02/13/2025 Telephone [place] [facility] [address], [address] [place] [address] Aarti Maldonado MD [address] [facility] [address] [place] [address] Social History Tobacco Use Types [...] encounter Miscellaneous Notes * Telephone Encounter - Lucy Mohr - 02/13/2025 10:04 AM EDT Left message with patient to return call on direct line to notify him his surgery location has changed. documented in this encounter Plan of Treatment Upcoming Encounters Date Type Department Care Team ([facility] st Contact Info) Description 03/12/2025 7:50 AM EDT Appointment [facility] Radiology [address] [place] [address] 03/19/2025 Hospital Encounter [facility] OPERATING ROOM [address] [place] [address] Aarti Maldonado MD [address] [address] 04/18/2025 10:30 AM EDT Office Visit Medical Office Building Urology [address] [facility], [address] [place] [address] Aarti Maldonado MD [address] [address] Scheduled Procedures Name Priority Associated [...] documented as of this encounter Care Teams Recording Engineer Relationship Specialty Start Date End Date Ryne Bergman MD [address] [place] [address] PCP - General 04/21/24 Abiola Loyola APRN [address] [address] Nurse Practitioner Urology 10/30/24 Aarti Maldonado MD [address] [address] Surgeon Urology 01/10/25 documented as of this encounter
--- OUTSIDE RECORDS SUMMARY | 2025-03-05 09:37 | XMS_ITS | Encounter Summary ---
Author Organization [facility] Address [address] [place] [address] Care Team Providers Care Longshore Equipment Operator Name Role Phone Ryne Bergman MD Primary Care Provider Abiola Loyola NURSE SITTER Unavailable [phone] Aarti Maldonado MD Unavailable [phone] Encounter Details Date Type Department Care Team (Late st Contact Info) Description 01/15/2025 Telephone [place] [facility] [address], [address] [place] [address] Aarti Maldonado MD [address] [facility] [address] [place] [address] Social History Tobacco Use Types [...] encounter Miscellaneous Notes * Telephone Encounter - Alexandra Quiroz - 01/15/2025 9:50 AM EDT Called and spoke with Cara the pharmacist at [facility] and let her know that it was only 1Valium for him to take prior to the MRI documented in this encounter Plan of Treatment Upcoming Encounters Date Type Department Care Team (Late st Contact Info) Description 03/12/2025 7:50 AM EDT Appointment [facility] Radiology [address] [place] [address] 03/19/2025 Hospital Encounter [facility] A OPERATING ROOM [address] [place] [address] Aarti Maldonado MD [address] [address] 04/18/2025 10:30 AM EDT Office Visit Medical Office Building Urology [address] [facility], [address] [place] [address] Aarti Maldonado MD [address] [address] Scheduled Procedures Name Priority Associated Diagnoses Date/Ti [...] documented as of this encounter Care Teams Longshore Equipment Operator Relationship Specialty Start Date End Date Ryne Bergman MD [address] [place] [address] PCP - General 04/21/24 Abiola Loyola APRN [address] [place] [address] Nurse Practitioner Urology 10/30/24 Aarti Maldonado MD [address] [place] [address] Surgeon Urology 01/10/25 documented as of this encounter
--- OUTSIDE RECORDS SUMMARY | 2025-03-05 09:37 | XMS_ITS | Encounter Summary ---
Author Organization [facility] Address [address] [place] [address] Care Team Providers Care Duralumin Mechanic Name Role Phone Ryne Bergman MD Primary Care Provider [phone] Abiola Loyola ROCK WOOL APPLICATOR Unavailable [phone] Aarti Maldonado MD Unavailable [phone] Encounter Details Date Type Department Care Team (Late st Contact Info) Description 01/10/2025 Orders Only [place] [facility] [address], [address] [place] [address] Aarti Maldonado MD [address] [place] [address] Social History Tobacco Use Types [...] Bo Cochran documented as of this encounter Plan of Treatment Upcoming Encounters Date Type Department Care Team (Late st Contact Info) Description 03/12/2025 7:50 AM EDT Appointment [facility] Radiology [address] [place] [address] 03/19/2025 Hospital Encounter [facility] A OPERATING ROOM [address] [place] [address] Aarti Maldonado MD [address] [place] [address] 04/18/2025 10:30 AM EDT Office Visit Medical Office Building Urology [address] [facility], [address] [place] [address] Aarti Maldonado MD [address] [address] Scheduled Procedures Name Priority Associated [...] documented as of this encounter Care Teams Duralumin Mechanic Relationship Specialty Start Date End Date Ryne Bergman MD [address] [place] [address] PCP - General 04/21/24 Abiola Loyola APRN [address] [address] Nurse Practitioner Urology 10/30/24 Aarti Maldonado MD [address] [address] Surgeon Urology 01/10/25 documented as of this encounter
--- OUTSIDE RECORDS SUMMARY | 2025-03-05 09:37 | XMS_ITS | Encounter Summary ---
Author Organization [facility] Address [address] [place] [address] Care Team Providers Care Physical Education Instructor Name Role Phone Ryne Bergman MD Primary Care Provider Abiola Loyola CABLE ENGINEER Unavailable Aarti Maldonado MD Unavailable Encounter Details Date Type Department Care Team (Late st Contact Info) Description 02/10/2024 Orders Only External Location [address] [place] [address] Nicole Bernstein, DO [address] [place] [address] Social History Tobacco Use Types Packs/Day Years [...] EDT Appointment [facility] Radiology [address] [place] [address] 03/19/2025 Hospital Encounter [facility] A OPERATING ROOM [address] [place] [address] Aarti Maldonado MD [address] [facility] [address] [place] [address] 04/18/2025 10:30 AM EDT Office Visit Medical Office Building Urology [address] [facility], [address] [place] [address] Aarti Maldonado MD [address] [place] [address] Scheduled Procedures Name Priority Associated Diagnoses Date/Ti me ENUCLEATION, PROSTATE, TRANSURETHRAL, USING HOLMIUM LASER BPH (benign prostatic hyperplasia) documented as of this encounter Procedures Procedure Name Priority Date/Time Associated Diagnosis Comments CT OUTSIDE IMAGES 02/10/2024 7:13 PM EDT documented in this encounter Results * CT OUTSIDE IMAGES (02/10/2024 7:13 PM EDT) Anatomical Region Laterality Modality Computed Tomogra phy 02/10/2024 7:13 PM EDT Nicole Bernstein DO IMG CT PROCEDURES Final Result documented in this encounter Visit Diagnoses Not on filedocumented in this encounter Care Teams Physical Education Instructor Relationship Specialty Start Date End Date Ryne Bergman MD [address] [place] [address] PCP - General 04/21/24 Abiola Loyola APRN [address] [place] [address] Nurse Practitioner Urology 10/30/24 Aarti Maldonado MD [address] [place] [address] Surgeon Urology 01/10/25 documented as of this encounter
--- OUTSIDE RECORDS SUMMARY | 2025-03-05 09:38 | XMS_ITS | Encounter Summary ---
Author Organization [facility] Address [address] [place] [address] Care Team Providers Care Manager Functional Name Role Phone Ryne Bergman MD Primary Care Provider Abiola Loyola RAIL CAR REPAIR CARMAN Unavailable [phone] Aarti Maldonado MD Unavailable [phone] Encounter Details Date Type Department Care Team (Late st Contact Info) Description 02/13/2025 Telephone [place] [facility] U[facility] [address], [address] [place] [address] Aarti Maldonado MD [address] [facility] [address] [place] [address] Social History Tobacco Use Types [...] Telephone Encounter - Lucy Mohr - 02/13/2025 10:31 AM EDT Spoke with patient, notified him surgery location changed to [facility] on 03/19 documented in this encounter Plan of Treatment Upcoming Encounters Date Type Department Care Team (Late st Contact Info) Description 03/12/2025 7:50 AM EDT Appointment [facility] Radiology [address] [place] [address] 03/19/2025 Hospital Encounter [facility] A OPERATING ROOM [address] [place] [address] Aarti Maldonado MD [address] [address] 04/18/2025 10:30 AM EDT Office Visit Medical Office Building Urology [address] [facility], [address] [place] [address] Aarti Maldonado MD [address] [address] Scheduled Procedures Name Priority Associated [...] documented as of this encounter Care Teams Manager Functional Relationship Specialty Start Date End Date Ryne Bergman MD [address] [place] [address] PCP - General 04/21/24 Abiola Loyola APRN [address] [facility] [place] [address] Nurse Practitioner Urology 10/30/24 Aarti Maldonado MD [address] [facility] [place] [address] Surgeon Urology 01/10/25 documented as of this encounter
--- OUTSIDE RECORDS SUMMARY | 2025-03-05 09:38 | XMS_ITS | Encounter Summary ---
Author Organization [facility] Address [address] [place] [address] Care Team Providers Care Java Software Name Role Phone Ryne Bergman MD Primary Care Provider [phone] Abiola Loyola DEVELOPMENT SPECIALIST Unavailable [phone] Encounter Details Date Type Department Care Team (Latest Contact Info) Description 01/09/2025 Travel Social History Tobacco Use Types Packs/Day Years Used Date Smoking Tobacco: Some Days Cigarettes 0.3 1 Started: 03/27/2024 Smokeless Tobacco: Never Alcohol Use Standard Drinks/Week [...] EDT Appointment [facility] A Radiology [address] [place] [address] 03/19/2025 Hospital Encounter [facility] A OPERATING ROOM [address] [place] [address] Aarti Maldonado MD [address] [place] [address] 04/18/2025 10:30 AM EDT Office Visit Medical Office Building Urology [address] [facility], [address] [place] [address] Aarti Maldonado MD [address] [address] Scheduled Procedures Name Priority Associated Diagnoses Date/Ti me ENUCLEATION, PROSTATE, TRANSURETHRAL, USING HOLMIUM LASER BPH (benign prostatic hyperplasia) documented as of this encounter Visit Diagnoses Not on filedocumented in this encounter Additional Health Concerns Assessment Noted Time A fall risk assessment has been complete d for the patient 10/30/2024 8:24 AM EST documented as of this encounter Care Teams Java Software Relationship Specialty Start Date End Date Ryne Bergman MD [address] [place] [address] PCP - General 04/21/24 Abiola Loyola, DEVELOPMENT SPECIALIST [address] [address] Nurse Practitioner Urology 10/30/24 documented as of this encounter
--- OUTSIDE RECORDS SUMMARY | 2025-03-05 09:38 | XMS_ITS | Encounter Summary ---
Author Organization [facility] Address [address] [place] [address] Care Team Providers Care Dry Box Operator Name Role Phone Ryne Bergman MD Primary Care Provider [phone] Abiola Loyola DOUBLE BACK OPERATOR Unavailable [phone] Aarti Maldonado MD Unavailable [phone] Encounter Details Date Type Department Care Team (Latest Contact Info) Description 01/10/2025 Travel Social History Tobacco Use Types Packs/Day [...] EDT Appointment [facility] A Radiology [address] [place] [address] 03/19/2025 Hospital Encounter PAV A OPERATING ROOM [address] [place] [address] Aarti Maldonado MD [address] [address] 04/18/2025 10:30 AM EDT Office Visit Medical Office Building Urology [facility], [address] [place] [address] Aarti Maldonado MD [address] [facility] [place] [address] Scheduled Procedures Name Priority Associated Diagnoses Date/Ti [...] documented as of this encounter Care Teams Dry Box Operator Relationship Specialty Start Date End Date Ryne Bergman MD [address] [place] [address] PCP - General 04/21/24 Abiola Loyola APRN [address] [address] Nurse Practitioner Urology 10/30/24 Aarti Maldonado MD [address] [place] [address] Surgeon Urology 01/10/25 documented as of this encounter
--- OUTSIDE RECORDS SUMMARY | 2025-03-05 09:38 | XMS_ITS | Clinical Summary ---
Author Organization [facility] Address [address] [place] [address] Care Team Providers Care Bath Steward Name Role Phone Ryne Bergman MD Primary Care Provider [phone] Abiola Loyola APRN Unavailable [phone] Aarti Maldonado MD Unavailable [phone] Allergies Active Allergy Reactions Criticality Noted Date Comments Morphine Hives,Itching,Rash,Swelling High 01/09/20 22 Oxybutynin Palpitations High 10/30/2024 Increase BP Medications finasteride (Proscar) 5 MG tablet Take 1 tablet (5 mg) by mouth 1 (one) time each day. 4 Active FLUoxetine (PROzac) 40 MG capsule Take 1 capsule (40 mg) by mouth 1 (one) time each day. Active FLUoxetine (PROzac) 20 MG capsule Take 1 capsule (20 mg) by mouth 1 (one) time each day. 4 Active hydrALAZINE (Apresoline) 25 MG tablet TAKE 1 TABLET BY MOUTH 4 TIMES DAILY NEEDED FOR BLOOD PRESSURE. TAKE 1 TABLET IF BLOOD PRESSURE GREATER THAN 180 5 Active HumaLOG MIX 75/25 KWIKPEN (75-25) 100 UNIT/ML injection pen INJECT 60 UNITS SUBCUTANEOUSLY ONCE IN THE MORNING, 30 UNITS AT NOON, AND 60 UNITS IN THE EVENING Active metFORMIN XR (Glucophage-XR ) 750 MG 24 hr tablet Take 1 tablet (750 mg) by mouth 1 (one) time each day with breakfast. Active pioglitazone (Actos) 45 MG tablet Take 1 tablet (45 mg) by mouth 1 (one) time each day. Active potassium chloride CR (K-Tab) 20 MEQ ER tablet Take 1 tablet (20 mEq) by mouth 1 (one) time each day. 4 Active pramipexole (Mirapex) 1 MG tablet Take 1 tablet (1 mg) by mouth 1 (one) time each day. 4 Active rosuvastatin (Crestor) 10 MG tablet Take 1 tablet (10 mg) by mouth 1 (one) time each day. 4 Active tamsulosin (Flomax) 0.4 MG 24 hr capsule Take 1 capsule (0.4 mg) by mouth 2 (two) times a day. 4 Active topiramate (Topamax) 25 MG tablet Take 1 tablet (25 mg) by mouth 2 (two) times a day. Active valsartan (Diovan) 320 MG tablet Take 1 tablet (320 mg) by mouth 1 (one) time each day. 4 Active albuterol 108 (90 Base) MCG/ACT inhaler INHALE 1 PUFF BY MOUTH EVERY 6 HOURS 5 Active Jardiance 10 MG Take 1 tablet by mouth daily. Active OneTouch Verio test strip USE 1 STRIP TO CHECK GLUCOSE TWICE DAILY DIRECTED 5 Active BD Pen Needle Rosalia 2nd Gen 32G X 4 MM misc USE 1 PEN SUBCUTANEOUSLY THREE TIMES DAILY WITH INJECTABLE MEDICATION 5 Active diazePAM (Valium) 5 MG tablet Take 1 tablet by mouth every 8 hours as needed for anxiety (for MRI). 1 tablet 5 Active Active Problems Problem Noted Date Diagnosed Date Acute urinary retention 10/30/2024 Urine retention 10/30/2024 Atypical chest pain 10/30/2024 Breath shortness 10/30/2024 Diabetes 10/30/2024 Complication of Schwartz catheter 10/30/2024 CHF (congestive heart failure) 10/30/2024 Cervical radiculopathy 10/30/2024 Obstructive sleep apnea syndrome 10/30/2024 Impotence 10/30/2024 Enlarged prostate 10/30/2024 Hypokalemia 10/30/2024 Upper respiratory infection 10/30/2024 DENNIS (stress urinary incontinence), male 10/30/19 Postlaminectomy syndrome of cervical region 11/2024 Obstructive uropathy 10/30/2024 Urinary tract infection 10/30/2024 BPH with obstruction/lower urinary tract symptom s 02/22/2024 Primary hypertension 11/12/2022 Bipolar disorder with moderate depression 2021 Resolved Problems Problem Noted Date Diagnosed Date Resolved Date BPH (benign prostatic hyperplasia) 10/30/2024 10/30/2024 Encounters Date Type Department Care Team Description 02/13/2025 Telephone [facility] Urology [address], [address] [place] [address] Aarti Maldonado MD 02/13/2025 Telephone [facility] Urology [facility] [address] [address] Aarti Maldonado MD 01/15/[address] [address] Aarti Maldonado MD 01/12/2025 Telephone [facility] Urology [facility] [address] [address] Aarti Maldonado MD 01/10/2025 9:45 AM EDT Office Visit [facility] Urology [facility] [address] [address] Aarti Maldonado MD Benign prostatic hyperplasia with urinary frequency (Primary Dx); Microhematuria 01/10/2025 Orders Only [facility] Urology [address] [address] Aarti Maldonado MD 01/10/2025 Telephone [facility] Urology [facility] [address] [address] Aarti Maldonado MD 01/10/2025 Travel 01/09/2025 Travel from Last 3 Months Immunizations Immunization Administration Dates Next Due Hep A, Adult 07/30/2018 Influenza, injectable, quadr ivalent, preservative free 08/24/2023,07/28/2022,08/23/2019,07/30 Pneumococcal 20-edinson Conj Vaccine 11/23/2023 Pneumococcal Polysaccharide PPV23 07/25/2018 Family History Medical History Relation Name Comments Cancer Father Andrew Castrejon Hypertension Mother Tawnya Castrejon Kidney disease Mother Tawnya Castrejon Relation Name Status Comments Father [place] Mother Tawnya Castrejon Social History Tobacco Use Types Packs/Day Years [...] on file Sexual Orientation Not on file Last Filed Vital Signs Vital Sign Reading [...] Mass Index 33.59 01/10/2025 10:06 AM EDT Plan of Treatment Upcoming Encounters Date Type Department Care Team (Late st Contact Info) Description 03/12/2025 7:50 AM EDT Appointment [facility] [address] [place] [address] 03/19/2025 Hospital Encounter [facility] [address] [place] [address] Aarti Maldonado MD [address] [place] [address] 04/18/2025 10:30 AM EDT Office Visit Medical Office Building Urology [address] [facility], [address] [place] [address] Aarti Maldonado MD [address] [place] [address] Scheduled Procedures Name Priority Associated Diagnoses Date/Ti me ENUCLEATION, PROSTATE, TRANSURETHRAL, USING HOLMIUM LASER BPH (benign prostatic hyperplasia) Health Maintenance Due Date Last Done Comments [facility]-Hepatitis C Screening 1960 [facility]-Medicare Annual Wellness (AWV) 1960 [facility]-Infant/Child/Adol SDOH Screenings 1958 Diabetes: Dental Exam 1968 [facility]- SDOH Screenings 1976 [facility]-Adult SDOH Screenings 1976 [facility]-DTaP,Tdap,and Td Vaccines (1 - Tdap) 1977 CT Colonography 2003 Colonoscopy 2003 FIT-DNA 2003 FIT 2003 FOBT 2003 Sigmoidoscopy 2003 [facility]-Colorectal Cancer Screening 2003 [facility]-Zoster Vaccines (1 of 2) 2008 [facility]-RSV Vaccine: 60+ Years or (1 - Risk 60-74 years 1-dose series) 2018 [facility]-Abdominal Aortic Aneurysm (AAA) Screening 2023 [facility]-Diabetes: Hemoglobin A1C 05/22/2024 11/23/2023, 07/28/2022 [id number] Vaccine ( - season) 2024 03/07/2021, 02/07/2021 [facility]-Influenza Vaccine (Season Ended) 2025 08/24/2023, 07/28/2022, 08/23/2019, Additional history exists [facility]-Depression Screening 01/10/2026 01/10/2025, 12/26 [facility]-Hepatitis A Vaccines Aged Out 07/30/2018 No longer eligible based on patient's age to complete this topic [facility]-Pneumococcal Vaccine: 50+ Years Completed 11/23/2023, 07/25/2018 [facility]-Obesity Intervention Completed 01/10/2025 HPV Vaccines Aged Out No longer eligi ble based on patient's age to complete this topic [facility]-HIB Vaccines Aged Out No longer e ligible based on patient's age to complete this topic [facility]-IPV Vaccines Aged Out No longer e ligible based on patient's age to complete this topic [facility]-Rotavirus Vaccines Aged Out No lo nger eligible based on patient's age to complete this topic Goals Goal Patient Goal Type Associated Problems Recent Progress Patient-Stated? Author Autogenerat ed Goal Care Plan Autogenerated Problem No Anika Hackett Procedures Procedure Name Priority Date/Time Associated Diagnosis Comments CYSTO- UROLOGY Routine 01/10/2025 10:30 PM EDT Microhematuria CREATININE, PLASMA STAT 01/10/2025 11 :55 AM EDT Benign prostatic hyperplasia with urinary frequency POC US BLADDER SCAN FOR VOLUME Routine 01/10/2025 10:21 AM EDT Microhematuria Benign prostatic hyperplasia with urinary frequency POCT URINALYSIS DIPSTICK Routine 01/10/2025 10:01 AM EDT from Last 3 Months Results * CYSTO- UROLOGY (01/10/2025 10:30 PM EDT) Narrative Aarti Maldonado MD - 01/10/2025 10:30 PM EDT Aarti Maldonado MD 01/10/2025 12:34 PM Cysto Date/Time: 01/10/2025 10:30 PM Performed by: Aarti Maldonado MD Authorized by: Aarti Maldonado MD Procedure discussed: discussed risks, benefits and alternatives Global Chief Experience Officer present: no Timeout: timeout called immediately prior to procedure Prep: patient was prepped and draped in usual sterile fashion Prep type: Betadine Anesthesia: local anesthesia Procedure Details Cystoscope type: flexible Cystoscopy route: transurethral Cystoscopy location: [place] bladder Irrigation used: saline Position: supine Urethra Urethra: normal Prostate Prostate: abnormal Appearance: obstructing Lobe enlargement: lateral lobe enlargement Bladder Bladder: normal Post-Procedure Details Catheter placed: no Appearance of urine after procedure: clear Outcome: patient tolerated procedure well with no complications Disposition: discharged home in satisfactory condition us Aarti Maldonado MD UROLOGY ORDERABLES Final Res ult * Creatinine, Plasma (01/10/2025 11:55 AM EDT) Creatinine, Plasma 0.84 0.70 - 1.20 mg/dL 01/10/2025 1:54 PM EDT [facility] eGFRcr 96.2 mL/min/1.7 3m*2 01/10/2025 1:54 PM EDT [facility] Comment:Reported eGFRcr in m L/min/1.73m2 is based the CKD-EPI 2020 equation that does not use a race coefficient. Blood Venous blood specimen / Unknown Venipuncture / Unknown 01/10/2025 11:55 AM EDT 01/10/2025 11:55 AM EDT us Aarti Maldonado MD LAB BLOOD ORDERABLES Final R esult [facility] [address] [place] [address] * POC US Bladder Volume (01/10/2025 10:21 [...] [facility] POCT Urine Specific [place] 1.020 1.005 - 1.030 01/10/2025 10:03 AM [...] ST DOCKED DEVICE UNSOLICITED RESULTS Final Result Performing Organization Address City/State/[facility] de Phone Number [facility] UROLOGY [address], [place] from Last 3 Months Additional Health Concerns Active Problems Noted Date Diagnosed Date Autogenerated Problem 02/13/2025 Insurance [facility] MEDIC[facility] Care Teams Bath Steward Relationship Specialty Start Date End Date Ryne Bergman MD [address] [place] [address] PCP - General 04/21/24 Abiola Loyola APRN [address] [facility] [place] [address] Nurse Practitioner Urology 10/30/24 Aarti Maldonado MD [address] [facility] [place] [address] Surgeon Urology 01/10/25
--- NOTE | 2025-03-05 09:43 | EXP.PAIN.SOA ---
[facility] Disclaimer: The information contained in this section may have been updated after the patient was seen, as this information can be updated by other users. Medical History TIA (transient ischemic attack) Urinary tract infection Anxiety and depression Hyperlipidemia Hypertension H/O carpal tunnel syndrome Diabetes mellitus, type 2 Sleep apnea History of chest pain Surgical History H/O discectomy History of cholecystectomy Family History Other Bone cancer Kidney failure Lung cancer Social History Smoking Status: Former smoker tobacco type: cigarettes alcohol intake: never substance use type: denies use current occupational status: retired and disabled Travel in the last 8 weeks?: None household members: spouse housing: house current occupational exposures/hazards: No caffeine: Yes Have you lived/traveled outside US in past 30 days?: No Contact w/someone who lives/traveled outside US past 30 days?: No Exposure to someone with infectious disease in past 14 days?: No Do you have a fever (greater than 100.4 F or 38 C)?: No Have you tested positive for COVID-19?: No Exposed to someone with COVID-19 in past 14 days?: No Do you have a sore throat?: No Do you have a cough?: No Do you have any weakness?: No Do you have any diarrhea?: No Are you experiencing any unusual bleeding?: No Do you have any muscle aches/pain?: No Do you have any abdominal pain?: No Are you experiencing loss of taste or smell?: No PM Subjective & Objective Subjective Subjective:: Patient is a pleasant 64-year-old male who presents today for worsening pain. Patient was last seen in our office in August 2022 where we had been treating his neck and radicular symptoms. Today he rates his pain a 5 out of 10. patient denies any new falls or injuries. He does state that he still has the fairly constant neck and upper extremity issues as well as the chronic back and hip pain. He states however the hips have been more bothersome than the neck and he would like to see about injections. Patient states that the last month has been much more miserable and that with any type of increased activity he is having more difficulty. He states it is interfering with his ability to perform activities of daily living such as cooking and cleaning. Patient states he cannot walk more than 10 minutes due to the worsening pain symptoms and does have to stop and take a break. Patient states he is just very sore especially along his hips but does go into his low back. He denies any radiating symptoms into his legs. Patient's last cervical epidural injection was in July 2022 that did provide at least 50 to 60% improvement. He does make mention that he is scheduled for prostate surgery coming up at in about 2 weeks. He also makes mention from our last appointment that they have changed several of his medications whereas in the past he had been on diclofenac and tizanidine from our office. His Ajy has been reviewed and is appropriate. Review of Systems: General: No recent weight changes, no fever, no sleep disturbances Respiratory: No cough, no shortness of air, no recurring pulmonary infections Cardiovascular/peripheral vascular: No chest pain, no palpitations, no edema, no shortness of breath Gastrointestinal: No new onset incontinence, normal bowel movements reported Genitourinary: No new onset incontinence Musculoskeletal: Low back pain, bilateral hip pain Psychiatric: [Normal mood/affect] Neurological: [Denies weakness in extremities], [denies balance issues] Pain at rest (0-10 scale): 5 Objective Objective:: Physical Exam: General: Alert and oriented x3, no acute distress, pleasant and cooperative Lungs: Respirations even and unlabored, symmetrical chest expansion Eyes: PERRL Musculoskeletal: Flexion and extension of bilateral hips somewhat guarded secondary to pain, [antalgic gait noted] point tenderness noted along bilateral greater trochanteric bursa's Neurological: Speech clear, no gross sensory deficit Has patient had previous pain injection?: No Conservative treatment options previously tried: Home exercise plan Length of treatment: Longer than 12 weeks Meds Home Medications and Allergies Home Medications ?Medication ?Instructions ?Recorded ?Confirmed ?Type topiramate 25 mg tablet (Topamax) 25 mg PO QDAY STILES 10/05/17 02/27/25 History metformin 850 mg tablet 750 mg PO DAILY Diabetes 02/28/21 02/27/25 History fluoxetine 60 mg tablet 60 mg PO DAILY 03/17/24 02/27/25 History insulin lispro protamine-lispro 30 unit SQ DAILY 03/17/24 02/27/25 History 100 unit/mL (75-25) subcutaneous pen pioglitazone 45 mg tablet (Actos) 45 mg PO DAILY 03/17/24 02/27/25 History potassium chloride 20 mEq 20 meq PO DAILY 03/17/24 02/27/25 History tablet,extended release albuterol sulfate 90 mcg/actuation 1 inh inhalation Q6H #6.7 grams 04/19/24 02/27/25 Rx aerosol inhaler finasteride 5 mg tablet (Proscar) 5 mg PO DAILY #90 tabs 11/20/24 02/27/25 Rx aspirin 81 mg capsule 81 mg PO DAILY #30 caps 01/11/25 02/27/25 Rx blood sugar diagnostic (OneTouch #10 ea 01/25/25 02/27/25 History Verio test strips) blood-glucose sensor (FreeStyle #1 ea 01/25/25 02/27/25 History Yuliya 3 Plus Sensor device) empagliflozin 10 mg tablet 10 mg PO DAILY 01/25/25 02/27/25 History (Jardiance) pen needle, diabetic 32 gauge x #1,200 ea 01/25/25 02/27/25 History pramipexole 1 mg tablet 1 mg PO DAILY 01/25/25 02/27/25 History rosuvastatin 20 mg tablet 20 mg PO DAILY 01/25/25 02/27/25 History tamsulosin 0.4 mg capsule mg PO 01/25/25 02/27/25 History valsartan 320 mg tablet 320 mg PO DAILY 01/25/25 02/27/25 History abgtfxdt-ukddgrhvu-yaxugamq 3.5 1 drp Eye-Both ONCE 02/14/25 02/27/25 History mg/mL-10,000 unit/mL-0.1% eye drops nifedipine 90 mg tablet,extended 90 mg PO DAILY #30 tabs 02/14/25 02/27/25 Rx release spironolactone 25 mg tablet 25 mg PO DAILY #30 tabs 02/14/25 02/27/25 Rx (Aldactone) New Prescriptions to Start Prescriptions: Allergies Allergy/AdvReac Type Severity Reaction Status Date / Time oxybutynin Allergy Severe angioedema Verified 02/27/25 10:29 morphine (MORPHINE) Allergy Unknown Verified 02/27/25 10:29 Assessment and Plan *Assessment and plan (1) Greater trochanteric bursitis of both hips: Status: Acute Category: Medical Code(s): M70.61 - Trochanteric bursitis, right hip; M70.62 - Trochanteric bursitis, left hip Plan Patient is experiencing worsening pain in his bilateral hips with point tenderness along his bilateral greater trochanteric bursa's. I did discuss with the patient that I do believe he would benefit from bilateral greater trochanteric bursa injections. Risk and benefits were discussed with patient and he would like to proceed forward with this plan of care. Patient does have a heart history more recently and does state that they are trying to work with his blood pressure we will make sure that we will not be prescribing the diclofenac due to this. I did discuss with him that I will order him a compounded cream and send in a muscle relaxer with a 2-week dose. Patient was also counseled regarding the injection that to verify with his provider at that there are no contraindications for proceeding forward with this injection related to his upcoming prostate surgery. Patient acknowledges understanding agrees with this plan of care. Patient has had low back and hip pain for longer than 6 months and has tried and failed conservative therapy including oral medication, heat and ice, topicals, at home stretching exercise for longer than 12 weeks. Patient will be scheduled for bilateral greater trochanteric bursa injections under fluoroscopy. Patient has not had any of these injections in the past to compare to. Patient has been instructed to contact the clinic with any concerns before the next appointment. Dr. Colin has reviewed this note and agrees with this plan of care. This note was dictated using voice recognition software and make contain errors or omissions. All injections are used with Lidocaine, Bupivacaine and dexamethasone. Occasionally urine drug screen is needed to verify patient's compliance with our office pain contract. This is ordered based off specific treatments related to chronic pain with the potential to abuse certain medications.
[2025-03-05 10:06] VITALS: BP 111/64; PULSE 86; RESP 14; O2SAT 96; BMI 33.0
[2025-03-05 11:01] LABS: Anion Gap 10.4 mEq/L (5-15); Blood Urea Nitrogen 26 mg/dl (9-20); Calcium 9.3 mg/dl (8.4-10.2); Carbon Dioxide 29 mmol/L (22.0-30.0); Chloride 107 mmol/L (98-107); Creatinine Clearance Estimated 107 mL/min (50-200); Estimated Glomerular Filt Rate 84 ml/min (>60); GFR (African American) 102 ML/MIN (>60); Glucose 180 mg/dl (74-100); Potassium 4.4 mmoL/L (3.5-5.1); Sodium 142 mmol/L (136-145)
== END 2025-03-05 23:59 | disposition home or self-care (01) ==
LOC: SC.PAIN 09:34 → LAB 10:02
PROVIDERS: Physician Assistant; PCP Family Medicine; Visit Provider Urology
DX: N40.1 Benign prostatic hyperplasia with lower urinary tract symptoms (principal); R35.0 Frequency of micturition; I10 Essential (primary) hypertension
CPT/HCPCS: 36415; 80048; 87086; 99212; G0463

== ENCOUNTER 2025-03-09 12:00 | Outpatient (CLI) | payer MEDICARE, SELFPAY ==
--- OUTSIDE RECORDS SUMMARY | 2025-01-10 09:45 | XMS_ITS | Encounter Summary ---
Author Organization [facility] Address [address] [id number] Care Team Providers Care Shirt Closer Name Role Phone Ryne Bergman MD Primary Care Provider [phone] Abiola Loyola TUBE CLOSING MACHINE OPERATOR Unavailable [phone] Aarti Maldonado MD Unavailable [phone] Reason for Referral * Imaging (Routine) - Authorized Specialty Diagnoses / Procedures Referred By Kriss colin Referred To Contact Radiology Diagnoses Benign prostatic hyperplasia with urinary frequency Procedures MR Prostate w and wo IV Contrast Aarti Maldonado MD [address] [address] Phone: tel: fax: Referral ID Status Reason Start Date Expiration Date V isits Requested Visits Authorized [id number] Authorized 01/10/2025 07/12/2026 1 1 Reason for Visit * Reason Comments Cystoscope * Other Medical (Routine) - Closed Specialty Diagnoses / Procedures Referred By Kriss colin Referred To Contact Urology Diagnoses Microhematuria Procedures Cysto Aarti Maldonado MD [address] [address] Phone: tel: fax: Referral ID Status Reason Start Date Expiration Date Visits Re quested Visits Authorized [id number] Closed 11/30/2024 06/01/2026 1 1 Encounter Details Date Type Department Care Team (Late st Contact Info) Description 01/10/2025 9:45 AM EDT Office Visit [facility] [address] [place] [address] Aarti Maldonado MD [address] [place] [address] Benign prostatic hyperplasia with urinary [...] Procedure discussed: discussed risks, benefits and alternatives Mental Health Nurse present: no Timeout: timeout called immediately prior to procedure Prep: patient was prepped and draped in usual sterile fashion Prep type: Betadine Anesthesia: local anesthesia Procedure Details Cystoscope type: flexible Cystoscopy route: transurethral Cystoscopy location: barrow bladder Irrigation used: saline Position: supine Urethra [...] risk of bleeding. There is a small fpc risk of developing scar tissue (stricture or [...] 03/12/2025 7:50 AM EDT Appointment [facility] [address] [address] 03/14/2025 2:45 PM EDT Pre-Admission Testing [facility] [address] [place] [address] 03/19/2025 9:20 AM EDT Hospital Encounter [facility] OPERATING ROOM [address] [place] [address] Aarti Maldonado MD [address] [address] 03/19/2025 9:20 AM EDT - 03/19/2025 11:35 AM EDT Surgery [facility] OPERATING ROOM [address] [place] [address] Aarti Maldonado MD [address] [address] ENUCLEATION, PROSTATE, TRANSURETHRAL, USING HOLMIUM LASER [04262 (CPT )] 04/18/2025 10:30 AM EDT Office Visit Medical Office Building Urology [address] [facility], [address] [place] [address] Aarti Maldonado MD [address] [address] Scheduled Orders Name Type Priority [...] HOLMIUM LASER BPH (benign prostatic hyperplasia) 03/19/2025 9:20 AM EDT documented as of this encounter [...] Procedure discussed: discussed risks, benefits and alternatives Mental Health Nurse present: no Timeout: timeout called immediately prior to procedure Prep: patient was prepped and draped in usual sterile fashion Prep type: Betadine Anesthesia: local anesthesia Procedure Details Cystoscope type: flexible Cystoscopy route: transurethral Cystoscopy location: barrow bladder Irrigation used: saline Position: supine Urethra [...] - 1.20 mg/dL 01/10/2025 1:[address] [facility] eGFRcr 96.2 mL/min/1.7 3m*2 01/10/2025 1:[address] [facility] Comment:Reported eGFRcr in m L/min/1.73m2 is based the CKD-EPI 2020 equation that does not use a race coefficient. Blood Venous blood specimen / Unknown Venipuncture / Unknown 01/10/2025 11:55 AM EDT 01/10/2025 11:55 AM EDT us Aarti Maldonado MD LAB BLOOD ORDERABLES Final R esult [facility] [address] [place] [address] * POC US Bladder Volume (01/10/2025 10:21 AM EDT) Urine, Volume 76 mL IMAGING Anatomical Region Laterality Modality Other us Aarti Maldonado MD IMG POINT OF CARE ULTRASOUND Final Result * (ABNORMAL) POCT URINALYSIS DIPSTICK (01/10/2025 10:01 AM EDT) POCT Urine Color Yellow 01/10/2025 10:03 AM EDT [facility] POCT Urine Clarity Clear 01/10/2025 10:03 AM EDT [facility] POCT Urine Glucose >=1000(A) Negative mg/dL 01/10/2025 10:03 AM EDT [facility] POCT Urine Bilirubin Negative Negative mg/dL 01/10/2025 10:03 AM EDT [facility] POCT Urine Ketones Negative Negative mg/dL 01/10/2025 10:03 AM EDT [facility] POCT Urine Specific [place] 1.020 1.005 - 1.030 01/10/2025 10:03 AM EDT [facility] POCT Urine Blood Negative Negative 01/10/2025 10:03 AM EDT [facility] POCT pH, Urine 5.5 5.0 - 8.0 01/10/2025 10:03 AM EDT [facility] POCT Protein, Urine Negative Negative mg/dL 01/10/2025 10:03 AM EDT [facility] POCT Urobilinogen, Urine 0.2 0.2, 1.0 EU/dL 01/10/2025 10:03 AM EDT [facility] POCT Nitrite, Urine Negative Negative 01/10/2025 10:03 AM EDT [facility] POCT Urine Leukocyte Esterase Negative Negative 01/10/2025 10:03 AM EDT [facility] Urine 01/10/2025 10:0 1 AM EDT 01/10/2025 10:03 AM EDT us Aarti Maldonado MD LAB POINT OF CARE TE ST DOCKED DEVICE UNSOLICITED RESULTS Final Result [facility] [address] [place], [place] documented in this encounter Visit Diagnoses [...] documented as of this encounter Care Teams Shirt Closer Relationship Specialty Start Date End Date Ryne Bergman MD [address] [place], [place] [id number] PCP - General 04/21/24 Abiola Loyola APRN [address] [facility] [address] [place] [address] Nurse Practitioner Urology 10/30/24 Aarti Maldonado MD [address] [address] Surgeon Urology 01/10/25 documented as of this encounter
--- OUTSIDE RECORDS SUMMARY | 2025-03-09 12:02 | XMS_ITS | Encounter Summary ---
Author Organization [facility] Address [address] [place] [address] Care Team Providers Care Prom Burn Off Operator Name Role Phone Ryne Bergman MD Primary Care Provider Abiola Loyola CLINICAL ANALYST Unavailable [phone] Aarti Maldonado MD Unavailable [phone] Encounter Details Date Type Department Care Team (Late st Contact Info) Description 02/10/2024 Orders Only External Location [address] [place] [phone] Nicole Bernstein, DO [address] [place] [address] Social History Tobacco Use Types [...] EDT Appointment [facility]iology [address] [place] [address] 03/14/2025 2:45 PM EDT Pre-[facility]mission Testing [place] [facility] [address], [address] [place] [address] 03/19/2025 9:20 AM EDT Hospital Encounter [facility] [address] [place] [address] Aarti Maldonado MD [address] [place] [address] 03/19/2025 9:20 AM EDT - 03/19/2025 11:35 AM EDT Surgery [facility] [address] [place] [address] Aarti Maldonado MD [address] [place] [address] ENUCLEATION, PROSTATE, TRANSURETHRAL, USING HOLMIUM LASER [[id number] (CPT )] 04/18/2025 10:30 AM EDT Office Visit Medical Office Building Urology [address] [facility], [address] [place] [address] Aarti Maldonado MD [address] [address] Scheduled Procedures Name Priority Associated [...] Computed Tomogra phy 02/10/2024 7:13 PM EDT us Nicole Bernstein DO IMG CT PROCEDURES Final Result documented in this encounter Visit Diagnoses Not on filedocumented in this encounter Care Teams Prom Burn Off Operator Relationship Specialty Start Date End Date Ryne Bergman MD [address] [place] [address] PCP - General 04/21/24 Abiola Loyola APRN [address] [place] [address] Nurse Practitioner Urology 10/30/24 Aarti Maldonado MD [address] [place] [address] Surgeon Urology 01/10/25 documented as of this encounter
--- OUTSIDE RECORDS SUMMARY | 2025-03-09 12:02 | XMS_ITS | Encounter Summary ---
Author Organization [facility] Address [address] [place] [address] Care Team Providers Care Experienced Truck Driver Name Role Phone Ryne Bergman MD Primary Care Provider Abiola Loyola FILLING AND STAPLING MACHINE OPERATOR Unavailable [phone] Aarti Maldonado MD Unavailable [phone] Encounter Details Date Type Department Care Team (Late st Contact Info) Description 01/10/2025 Telephone [facility] U[facility] [address] [place] [address] Aarti Maldonado MD [address] [place] [address] Social History Tobacco Use Types [...] television Not at all 01/10/2025 9:55 AM Tremayne Cochran Moving or speaking so slowly that other people could have noticed? Or the opposite - being so fidgety or restless that you have been moving around a lot more than usual. Not at all 01/10/2025 9:55 AM Bo Cochran Thoughts that you would be better off or hurting yourself in some way Not at all 01/10/2025 9:55 AM Tremayne Cochran Patient Health Questionnaire -9 Score 0 [...] EDT Appointment [facility]iology [address] [place] [address] 03/14/2025 2:45 PM EDT Pre-Admission Testing [facility] Pre-op Clinic [address] [place] [address] 03/19/2025 9:20 AM EDT Hospital Encounter [facility] OPER[facility] ROOM [address] [place] [address] Aarti Maldonado MD [address] [phone] 03/19/2025 9:20 AM EDT - 03/19/2025 11:35 AM EDT Surgery [facility] RO[facility] [address] [place] [address] Aarti Maldonado MD [address] [address] ENUCLEATION, PROSTATE, TRANSURETHRAL, USING HOLMIUM LASER [[id number] (CPT )] 04/18/2025 10:30 AM EDT Office Visit Medical Office Building Urology [address] [place] [address], [address] [place] [address] Aarti Maldonado MD [address] [phone] Scheduled Procedures Name Priority Associated Diagnoses Date/Ti me ENUCLEATION, PROSTATE, TRANSURETHRAL, USING HOLMIUM LASER BPH (benign prostatic hyperplasia) 03/19/2025 9:20 AM EDT documented as of this encounter Visit Diagnoses [...] documented as of this encounter Care Teams Experienced Truck Driver Relationship Specialty Start Date End Date Ryne Bergman MD [address] [place] [address] PCP - General 04/21/24 Abiola Loyola, LUCHO [address] [address] Nurse Practitioner Urology 10/30/24 Aarti Maldonado MD [address] [address] Surgeon Urology 01/10/25 documented as of this encounter
--- OUTSIDE RECORDS SUMMARY | 2025-03-09 12:02 | XMS_ITS | Encounter Summary ---
Author Organization [facility] Address [address] [place] [address] Care Team Providers Care Diamond Finishing Supervisor Name Role Phone Ryne Bergman MD Primary Care Provider [phone] Abiola Loyola BUNDLE SHAKER Unavailable [phone] Aarti Maldonado MD Unavailable [phone] Reason for Visit * Reason Onset Date Comments 03/05/25 Urine culture results from [facility] 03/08/2025 Encounter Details Date Type Department Care Team (Late st Contact Info) Description 03/08/2025 Telephone [place] [facility] Urology [address], [address] [place] [address] Aarti Maldonado MD [address] [place] [address] 03/05/25 Urine culture results from [facility] Social History Tobacco Use Types Packs/Day Years [...] encounter Miscellaneous Notes * Telephone Encounter - Tammy Sharpe - 03/08/2025 3:49 PM EDT Patient contacted. Patient verbalize understanding to go get his test redone. Let him know I will fax a new order. * Telephone Encounter - Aarti Maldonado MD - 03/08/2025 10:35 AM EDT Looks like it is contaminated, can we get a repeat by chance? Thanks * Telephone Encounter - Dayanna Bright - 03/08/2025 10:29 AM EDT 03/05/25 Urine culture results from [facility] and have been uploaded to media. Thank you. documented in this encounter Plan of Treatment Upcoming Encounters Date Type Department Care Team (Latest Contact Info) Description 03/12/2025 7:50 AM EDT Appointment [facility] Radiology [address] [place] [address] 03/14/2025 2:45 PM EDT Pre-Admission Testing [place] [facility] Pre-op Clinic [address], 1[address] [place] [address] 03/19/2025 9:20 AM EDT Hospital Encounter [facility] OPERATING ROOM [address] [place] [address] Aarti Maldonado MD [address] [place] [address] 03/19/2025 9:20 AM EDT - 03/19/2025 11:35 AM EDT Surgery [facility]ATING ROOM [address] [place] [address] Aarti Maldonado MD [address] [place] [address] ENUCLEATION, PROSTATE, TRANSURETHRAL, USING HOLMIUM LASER [[id number] (CPT )] 04/18/2025 10:30 AM EDT Office Visit Medical Office Building Urology [address] [place] [address], [address] [place] [address] Aarti Maldonado MD [address] [place] [address] Scheduled Procedures Name Priority Associated Diagnoses Date/Ti me ENUCLEATION, PROSTATE, TRANSURETHRAL, USING HOLMIUM LASER BPH (benign prostatic hyperplasia) 03/19/2025 9:20 AM EDT documented as of this encounter Goals Goal Patient Goal Type Associated Problems Recent Progress Patient-Stated? Author Autogenerat ed Goal Care Plan Autogenerated Problem No Roxann Anika documented as of this encounter Visit Diagnoses [...] documented as of this encounter Care Teams Diamond Finishing Supervisor Relationship Specialty Start Date End Date Ryne Bergman MD [address] [place] [address] PCP - General 04/21/24 Abiola Loyola APRN [address] [address] Nurse Practitioner Urology 10/30/24 Aarti Maldonado MD [address] [place] [address] Surgeon Urology 01/10/25 documented as of this encounter
--- OUTSIDE RECORDS SUMMARY | 2025-03-09 12:02 | XMS_ITS | Encounter Summary ---
Author Organization [facility] Address [address] [place] [address] Care Team Providers Care Embroiderer Hand Name Role Phone Ryne Bergman MD Primary Care Provider Abiola Loyola SISAL PICKER Unavailable [phone] Aarti Maldonado MD Unavailable [phone] Encounter Details Date Type Department Care Team (Late st Contact Info) Description 02/13/2025 Telephone [place] [facility] U[facility] [address], 2nd [place] [address] Aarti Maldonado MD [address] [facility] [address] [place] [address] Social History Tobacco Use Types [...] EDT Appointment [facility] Radiology [address] [place] [address] 03/14/2025 2:45 PM EDT Pre-Admission Testing [place] [facility] Pre-op Clinic [address] [facility], 1st [place] [address] 03/19/2025 9:20 AM EDT Hospital Encounter [facility] OPERATING ROOM [address] [place] [address] Aarti Maldonado MD [address] [address] 03/19/2025 9:20 AM EDT - 03/19/2025 11:35 AM EDT Surgery [facility] OPERATING ROOM [address] [place] [address] Aarti Maldonado MD [address] [address] ENUCLEATION, PROSTATE, TRANSURETHRAL, USING HOLMIUM LASER [[id number] (CPT )] 04/18/2025 10:30 AM EDT Office Visit Medical Office Building Urology [address] [facility], [address] [place] [address] Aarti Maldonado MD [address] [address] Scheduled Procedures Name Priority Associated Diagnoses Date/Ti [...] documented as of this encounter Care Teams Embroiderer Hand Relationship Specialty Start Date End Date Ryne Bergman MD [address] [place] [address] PCP - General 04/21/24 Abiola Loyola, SISAL PICKER [address] [facility] [place] [address] Nurse Practitioner Urology 10/30/24 Aarti Maldonado MD [address] [place] [address] Surgeon Urology 01/10/25 documented as of this encounter
--- OUTSIDE RECORDS SUMMARY | 2025-03-09 12:02 | XMS_ITS | Encounter Summary ---
Author Organization [facility] Address [address] [place] [address] Care Team Providers Care Coding Quality Analyst Name Role Phone Ryne Bergman MD Primary Care Provider [phone] Abiola Loyola HOST AND HOSTESS Unavailable [phone] Aarti Maldonado MD Unavailable [phone] Encounter Details Date Type Department Care Team (Late st Contact Info) Description 01/10/2025 Orders Only [place] [facility] Urology [address], [address]nd [place] [address] Aarti Maldonado MD [address] [place] [address] Social History Tobacco Use Types [...] down Not at all 01/10/2025 9:55 AM oB Garza Trouble concentrating on thi ngs, such [...] EDT Appointment [facility] Radiology [address] [place] [address] 03/14/2025 2:45 PM EDT Pre-Admission Testing [place] [facility] Pre-op [facility] [address], [address] [place] [address] 03/19/2025 9:20 AM EDT Hospital Encounter [facility] OPERATING ROOM [address] [place] [address] Aarti Maldonado MD [address] [place] [address] 03/19/2025 9:20 AM EDT - 03/19/2025 11:35 AM EDT Surgery [facility] OPERATING ROOM [address] [place] [address] Aarti Maldonado MD [address] [address] ENUCLEATION, PROSTATE, TRANSURETHRAL, USING HOLMIUM LASER [[id number] (CPT )] 04/18/2025 10:30 AM EDT Office Visit Medical Office Building Urology [facility] [address] [facility], [address] [place] [address] Aarti Maldonado MD [address] [address] Scheduled Procedures Name Priority Associated [...] documented as of this encounter Care Teams Coding Quality Analyst Relationship Specialty Start Date End Date Ryne Bergman MD [address] [place] [address] PCP - General 04/21/24 Abiola Loyola APRN [address] [address] Nurse Practitioner Urology 10/30/24 Aarti Maldonado MD [address] [place] [address] Surgeon Urology 01/10/25 documented as of this encounter
--- OUTSIDE RECORDS SUMMARY | 2025-03-09 12:02 | XMS_ITS | Encounter Summary ---
Author Organization [facility] Address [address] [place] [address] Care Team Providers Care Educational Therapist Name Role Phone Ryne Bergman MD Primary Care Provider [phone] Abiola Loyola PSYCH SOCIAL WORKER Unavailable [phone] Aarti Maldonado MD Unavailable [phone] Encounter Details Date Type Department Care Team (Late st Contact Info) Description 03/08/2025 Orders Only [place] [facility] Urology [address], [address]nd [place] [address] Aarti Maldonado MD [address] [place] [address] Microhematuria (Primary Dx) Social History Tobacco Use Types Packs/Day Years [...] EDT Appointment [facility] Radiology [address] [place] [address] 03/14/2025 2:45 PM EDT Pre-Admission Testing [place] [facility] Pre-op Clinic [address], 1[address] [place] [address] 03/19/2025 9:20 AM EDT Hospital Encounter [facility] A OPERATING ROOM [address] [place] [address] Aarti Maldonado MD [address] [address] 03/19/2025 9:20 AM EDT - 03/19/2025 11:35 AM EDT Surgery [facility] OPERATING ROOM [address] [place] [address] Aarti Maldonado MD [address] [address] ENUCLEATION, PROSTATE, TRANSURETHRAL, USING HOLMIUM LASER [[id number] (CPT )] 04/18/2025 10:30 AM EDT Office Visit Medical Office Building Urology [facility] [address] [facility], [address] [place] [address] Aarti Maldonado MD [address] [address] Scheduled Orders Name Type Priority Associated Diagnoses Orde r Schedule Urine Culture - Lab Collect Microbiology Routine Microhematuria Expected: 03/08/2025 (Approximate), Expires: 2026 Scheduled Procedures Name Priority Associated Diagnoses Date/Ti me ENUCLEATION, PROSTATE, TRANSURETHRAL, USING HOLMIUM LASER BPH (benign prostatic hyperplasia) 03/19/2025 9:20 AM EDT documented as of this encounter Goals Goal Patient Goal Type Associated Problems Recent Progress Patient-Stated? Author Autogenerat ed Goal Care Plan Autogenerated Problem No Anika Hackett documented as of this encounter Visit Diagnoses Diagnosis Microhematuria- Primary BPH (benign prostatic hyperplasia) Unspecified hyperplasia of prostate without urinary obstruction and other lower urinary tract symptoms (LUTS) documented in this encounter Additional Health Concerns Active [...] documented as of this encounter Care Teams Educational Therapist Relationship Specialty Start Date End Date Ryne Bergman MD [address] [place] [address] PCP - General 04/21/24 Abiola Loyola APRN [address] [place] [address] Nurse Practitioner Urology 10/30/24 Aarti Maldonado MD [address] [place] [address] Surgeon Urology 01/10/25 documented as of this encounter
--- OUTSIDE RECORDS SUMMARY | 2025-03-09 12:02 | XMS_ITS | Encounter Summary ---
Author Organization [facility] Address [address] [place] [address] Care Team Providers Care Dredge Boat Engineer Name Role Phone Ryne Bergman MD Primary Care Provider [phone] Abiola Loyola JOB FORWARDER Unavailable Aarti Maldonado MD Unavailable [phone] Encounter Details Date Type Department Care Team [...] down Not at all 01/10/2025 9:55 AM EDT Bo Monson Trouble concentrating on thi ngs, such as [...] EDT Appointment [facility] Radiology [address] [place] [address] 03/14/2025 2:45 PM EDT Pre-Admission Testing [place] Clinic Pre-op Clinic [address], 1st [place] [address] 03/19/2025 9:20 AM EDT Hospital Encounter [facility] A OPERATING ROOM [address] [place] [address] Aarti Maldonado MD [address] [place] [address] 03/19/2025 9:20 AM EDT - 03/19/2025 11:35 AM EDT Surgery [facility] OPERATING ROOM [address] [place] [address] Aarti Maldonado MD [address] [place] [address] ENUCLEATION, PROSTATE, TRANSURETHRAL, USING HOLMIUM LASER [[id number] (CPT )] 04/18/2025 10:30 AM EDT Office Visit Medical Office Building Urology [address] [facility], [address] [place] [address] Aarti Maldonado MD [address] [address] Scheduled Procedures Name Priority Associated [...] documented as of this encounter Care Teams Dredge Boat Engineer Relationship Specialty Start Date End Date Ryne Bergman MD [address] [place] [address] PCP - General 04/21/24 Abiola Loyola APRN [address] [address] Nurse Practitioner Urology 10/30/24 Aarti Maldonado MD [address] [address] Surgeon Urology 01/10/25 documented as of this encounter
--- OUTSIDE RECORDS SUMMARY | 2025-03-09 12:02 | XMS_ITS | Encounter Summary ---
Author Organization [facility] Address [address] [place] [address] Care Team Providers Care Clinical Research Spec Name Role Phone Ryne Bergman MD Primary Care Provider [phone] Abiola Loyola CENTRAL SUPPLY AIDE Unavailable [phone] Aarti Maldonado MD Unavailable [phone] Encounter Details Date Type Department Care Team (Late st Contact Info) Description 10/30/2019 Orders Only External Location [address] [place] [address] Provider, External Social History Tobacco Use Types [...] EDT Appointment [facility] Radiology [address] [place] [address] 03/14/2025 2:45 PM EDT Pre-Admission Testing [place] [facility] Pre-op Clinic [address], 1st [place] [address] 03/19/2025 9:20 AM EDT Hospital Encounter [facility] A OPERATING ROOM [address] [place] [address] Aarti Maldonado MD [address] [place] [address] 03/19/2025 9:20 AM EDT - 03/19/2025 11:35 AM EDT Surgery [facility] A OPERATING ROOM [address] [place] [address] Aarti Maldonado MD [address] [place] [address] ENUCLEATION, PROSTATE, TRANSURETHRAL, USING HOLMIUM LASER [[id number] (CPT )] 04/18/2025 10:30 AM EDT Office Visit Medical Office Building Urology [address] [facility], [address] [place] [address] Aarti Maldonado MD [address] [address] Scheduled Procedures Name Priority Associated [...] Computed Tomogra phy 10/30/2019 2:35 PM EST us External Provider IMG CT PROCEDURES Final Result documented in this encounter Visit Diagnoses Not on filedocumented in this encounter Care Teams Clinical Research Spec Relationship Specialty Start Date End Date Ryne Bergman MD [address] [place] [address] PCP - General 04/21/24 Abiola Loyola APRN [address] [place] [address] Nurse Practitioner Urology 10/30/24 Aarti Maldonado MD [address] [address] Surgeon Urology 01/10/25 documented as of this encounter
--- OUTSIDE RECORDS SUMMARY | 2025-03-09 12:02 | XMS_ITS | Encounter Summary ---
Author Organization [facility] Address [address] [place] [address] Care Team Providers Care Fire Control Officer Name Role Phone Ryne Bergman MD Primary Care Provider Abiola Loyola PARENT COACH Unavailable [phone] Aarti Maldonado MD Unavailable [phone] Encounter Details Date Type Department Care Team (Late st Contact Info) Description 03/09/2025 Orders Only [facility] Urology [address], 2nd [place] [address] Aarti Maldonado MD [address] [place] [address] Social History Tobacco Use Types [...] encounter Miscellaneous Notes * Progress Notes - Tammy Sharpe - 03/09/2025 10:07 AM EDT Patient sent a message wanting to add two medication. Added the two medication to patient chart documented in this encounter Plan of Treatment Upcoming Encounters Date Type Department Care Team (Latest Contact Info) Description 03/12/2025 7:50 AM EDT Appointment [facility] Radiology [address] [place] [address] 03/14/2025 2:45 PM EDT Pre-Admission Testing [place] Clinic Pre-op Clinic [address] [facility], 1st [place] [address] 03/19/2025 9:20 AM EDT Hospital Encounter PAV A OPERATING ROOM [address] [place] [address] Aarti Maldonado MD [address] [address] 03/19/2025 9:20 AM EDT - 03/19/2025 11:35 AM EDT Surgery PAV A OPERATING ROOM [address] [place] [address] Aarti Maldonado MD [address] [address] ENUCLEATION, PROSTATE, TRANSURETHRAL, USING HOLMIUM LASER [[id number] (CPT )] 04/18/2025 10:30 AM EDT Office Visit Medical Office Building Urology [address] [facility], [address] [place] [address] Aarti Maldonado MD [address] [address] Scheduled Procedures Name Priority Associated Diagnoses Date/Ti [...] documented as of this encounter Care Teams Fire Control Officer Relationship Specialty Start Date End Date Ryne Bergman MD [address] [place] [address] PCP - General 04/21/24 Abiola Loyola APRN [address] [facility]00 [place] [address] Nurse Practitioner Urology 10/30/24 Aarti Maldonado MD [address] [place] [address] Surgeon Urology 01/10/25 documented as of this encounter
--- OUTSIDE RECORDS SUMMARY | 2025-03-09 12:02 | XMS_ITS | Encounter Summary ---
Author Organization [facility] Address [address] [place] [address] Care Team Providers Care Slide Developer Name Role Phone Ryne Bergman MD Primary Care Provider Abiola Loyola PROJECT MANAGEMENT ENGINEER Unavailable [phone] Aarti Maldonado MD Unavailable [phone] Encounter Details Date Type Department Care Team (Late st Contact Info) Description 01/15/2025 Telephone [place] [facility] Urology [address], 2nd [place] [address] Aarti Maldonado MD [address] [place] [address] Social History Tobacco Use Types [...] and spoke with Cara the pharmacist at [facility] and let her know that it was only 1Valium for him to take prior to the MRI documented in this encounter Plan of Treatment Upcoming Encounters Date Type Department Care Team (Latest Contact Info) Description 03/12/2025 7:50 AM EDT Appointment [facility] A Radiology [address] [place] [address] 03/14/2025 2:45 PM EDT Pre-Admission Testing [place] Clinic Pre-op Clinic [address] [facility], 1st [place] [address] 03/19/2025 9:20 AM EDT Hospital Encounter PAV A OPERATING ROOM [address] [place] [address] Aarti Maldonado MD [address] [address] 03/19/2025 9:20 AM EDT - 03/19/2025 11:35 AM EDT Surgery PAV A OPERATING ROOM [address] [place] [address] Aarti Maldonado MD [address] [address] ENUCLEATION, PROSTATE, TRANSURETHRAL, USING HOLMIUM LASER [[id number] (CPT )] 04/18/2025 10:30 AM EDT Office Visit Medical Office Building Urology [address] [facility], [address] [place] [address] Aarti Maldonado MD [address] [address] Scheduled Procedures Name Priority Associated Diagnoses Date/Ti [...] documented as of this encounter Care Teams Slide Developer Relationship Specialty Start Date End Date Ryne Bergman MD [address] [place] [address] PCP - General 04/21/24 Abiola Loyola APRN [address] [place] [address] Nurse Practitioner Urology 10/30/24 Aarti Maldonado MD [address] [place] [address] Surgeon Urology 01/10/25 documented as of this encounter
--- OUTSIDE RECORDS SUMMARY | 2025-03-09 12:02 | XMS_ITS | Encounter Summary ---
Author Organization [facility] Address [address] [place] [address] Care Team Providers Care Round Corner Cutter Operator Name Role Phone Ryne Bergman MD Primary Care Provider Abiola Loyola REAL ESTATE DEVELOPER Unavailable [phone] Aarti Maldonado MD Unavailable [phone] Reason for Visit * Reason Onset Date Comments HCN Clinical Concern/Question 03/09/2025 Encounter Details Date Type Department Care Team (Late st Contact Info) Description 03/09/2025 Telephone [place] [facility] Urology [address] [place] [address] Aarti Maldonado MD [address] [place] [address] HCN Clinical Concern/Question Social History Tobacco Use Types Packs/Day Years [...] * Telephone Encounter - Tammy Sharpe - 03/09/2025 10:09 AM EDT Patient call to add two medication to his chart. Added medication to his list * Telephone Encounter - Rosaline Verde - 03/09/2025 9:47 AM EDT Patient Phone Message Reason for Call: Pt is calling to add two medications to his list-states he is having surgery on the and wantedto make sure they were documented as well Spironolactone 25mg Nifedipine ER 90mg Best contact number and optimal time of day to reach caller: [phone] Note: Please do not reply to this message. Follow-up communication and further actions as a result of this message need to be communicated with the patient directly, if the patient is not active onMyChart. If the patient is active on MyChart, they will receive notification of the communication/outcome via Holidu. documented in this encounter Plan of Treatment Upcoming Encounters Date Type Department Care Team (Latest Contact Info) Description 03/12/2025 7:50 AM EDT Appointment [facility] Radiology [address] [place] [address] 03/14/2025 2:45 PM EDT Pre-Admission Testing [place] [facility] Pre-op Clinic [address] 1[address] [place] [address] 03/19/2025 9:20 AM EDT Hospital Encounter PAV A OPERATING ROOM [address] [place] [address] Aarti Maldonado MD [address] [place] [address] 03/19/2025 9:20 AM EDT - 03/19/2025 11:35 AM EDT Surgery PAV A OPERATING ROOM [address] [place] [address] Aarti Maldonado MD [address] [facility]00 [place] [address] ENUCLEATION, PROSTATE, TRANSURETHRAL, USING HOLMIUM LASER [[id number] (CPT )] 04/18/2025 10:30 AM EDT Office Visit Medical Office Building Urology [address] [facility], [address] [place] [address] Aarti Maldonado MD [address] [facility]00 [place] [address] Scheduled Procedures Name Priority Associated [...] documented as of this encounter Care Teams Round Corner Cutter Operator Relationship Specialty Start Date End Date Ryne Bergman MD [address] [place] [address] PCP - General 04/21/24 Abiola Loyola APRN [address] [address] Nurse Practitioner Urology 10/30/24 Aarti Maldonado MD [address] [address] Surgeon Urology 01/10/25 documented as of this encounter
--- OUTSIDE RECORDS SUMMARY | 2025-03-09 12:02 | XMS_ITS | Encounter Summary ---
Author Organization [facility] Address [address] [place] [address] Care Team Providers Care Bread Pan Greaser Name Role Phone Ryne Bergman MD Primary Care Provider Abiola Loyola MEDICAL CSR Unavailable [phone] Aarti Maldonado MD Unavailable [phone] Encounter Details Date Type Department Care Team (Late st Contact Info) Description 01/12/2025 Telephone [facility] [address], 2nd [place] [address] Aarti Maldonado MD [address] [place] [address] Social History Tobacco Use Types [...] done 2 weeks prior to surgery at [facility] - urine culture order mailed to patient alone with surgery directions - patient is aware of this plan documented in this encounter Plan of Treatment Upcoming Encounters Date Type Department Care Team (Latest Contact Info) Description 03/12/2025 7:50 AM EDT Appointment [facility] [address] [place] [address] 03/14/2025 2:45 PM EDT Pre-Admission Testing [facility] [address], 1st [place] [address] 03/19/2025 9:20 AM EDT Hospital Encounter [facility] O[facility]ATING ROOM [address] [place] [address] Aarti Malodnado MD [address] [address] 03/19/2025 9:20 AM EDT - 03/19/2025 11:35 AM EDT Surgery [facility] [address] [place] [address] Aarti Maldonado MD [address] [place] [address] ENUCLEATION, PROSTATE, TRANSURETHRAL, USING HOLMIUM LASER [[id number] (CPT )] 04/18/2025 10:30 AM EDT Office Visit Medical Office Building Urology [facility] [address] [facility], [address] [place] [address] Aarti Maldonado MD [address] [place] [address] Scheduled Procedures Name Priority Associated Diagnoses Date/Ti me ENUCLEATION, PROSTATE, TRANSURETHRAL, USING HOLMIUM LASER BPH (benign prostatic hyperplasia) 03/19/2025 9:20 AM EDT documented as of this encounter Goals Goal Patient Goal Type Associated Problems Recent Progress Patient-Stated? Author Autogenerat ed Goal Care Plan Autogenerated Problem No RoxannAnika documented as of this encounter Visit Diagnoses [...] documented as of this encounter Care Teams Bread Pan Greaser Relationship Specialty Start Date End Date Ryne Bergman MD [address] [place] [address] PCP - General 04/21/24 Abiola Loyola APRN [address] [place] [address] Nurse Practitioner Urology 10/30/24 Aarti Maldonado MD [address] [place] [address] Surgeon Urology 01/10/25 documented as of this encounter
--- OUTSIDE RECORDS SUMMARY | 2025-03-09 12:03 | XMS_ITS | Clinical Summary ---
Author Organization [facility] Address [address] [place] [address] Care Team Providers Care Pharmaceutical Officer Name Role Phone Ryne Bergman MD Primary Care Provider [phone] Abiola Loyola APRN Unavailable [phone] Aarti Maldonado MD Unavailable [phone] Allergies Active Allergy Reactions Criticality Noted Date [...] anxiety (for MRI). 1 tablet 5 Active spironolactone (Aldactone) 25 MG tablet Take 1 tablet by mouth daily. Active NIFEdipine CC (Adalat CC) 90 MG 24 hr tablet Take 1 tablet by mouth daily before breakfast. Do not crush, chew, or split. Active Active Problems Problem Noted Date Diagnosed [...] Encounters Date Type Department Care Team Description 03/09/2025 Orders Only [facility] [address], [facility] [place] [address] Aarti Maldonado MD 03/09/2025 Telephone [facility] [address], [address] [place] [address] Aarti Maldonado MD [facility] Clinical Concern/Question 03/08/2025 Orders Only [facility] [address], [address] [place] [address] [place] [address] Aarti Maldonado MD Microhematuria (Primary Dx) 03/08/2025 Telephone [facility] [address], [address] [place] [address], [place] [address] Aarti Maldonado MD 03/05/25 Urine culture results from [facility] 02/13/2025 Telephone [facility] [address], [facility] [place] [facility] [place] [address] Aarti Maldonado MD 02/13/2025 Telephone [facility] [address], [facility] [place] [facility] [place] [address] Aarti Maldonado MD 01/15/2025 Telephone [facility] [address], [address] [place] [address], [place] [address] Aarti aMldonado MD 01/12/2025 Telephone [facility] [address], 2nd [place] [address] Aarti Maldonado MD 01/10/2025 9:45 AM EDT Office Visit [facility] [address], 2nd [place] [address] Aarti Maldonado MD Benign prostatic hyperplasia with urinary frequency (Primary Dx); Microhematuria 01/10/2025 Orders Only [facility] [address], 2nd [place] [address] Aarti Maldonado MD 01/10/2025 Telephone [facility] [address] [facility], 2nd [place] [address] Aarti Maldonado MD 01/10/2025 Travel 01/09/2025 Travel from Last 3 Months Immunizations Immunization Administration Dates Next Due Hep A, Adult 07/30/2018 Influenza, injectable, quadr ivalent, preservative free 08/24/2023,07/28/2022,08/23/2019,07/30 Pneumococcal 20-edinson Conj Vaccine 11/23/2023 Pneumococcal Polysaccharide PPV23 07/25/2018 Family History Medical History Relation Name Comments Cancer Father Newnan Cash Hypertension Mother Tawnya Castrejon Kidney disease Mother Tawnya Castrejon Relation Name Status Comments Father Newnan Cash Mother Tawnya Castrejon Social History Tobacco [...] EDT Appointment [facility] [address] [place] [address] 03/14/2025 2:45 PM EDT Pre-Admission Testing [place] [facility] Pre[facility] [address] [facility], 1st [place] [address] 03/19/2025 9:20 AM EDT Hospital Encounter [facility] RO[facility] [address] [place] [address] Aarti Maldonado MD [address] [address] 03/19/2025 9:20 AM EDT - 03/19/2025 11:35 AM EDT Surgery [facility] [address] [place] [address] Aarti Maldonado MD [address] [address] ENUCLEATION, PROSTATE, TRANSURETHRAL, USING HOLMIUM LASER [[id number] (CPT )] 04/18/2025 10:30 AM EDT Office Visit Medical Office Building Urology [address] [facility], [address] [place] [address] Aarti Maldonado MD [address] [place] [address] Scheduled Procedures Name Priority Associated Diagnoses Date/Ti me ENUCLEATION, PROSTATE, TRANSURETHRAL, USING HOLMIUM LASER BPH (benign prostatic hyperplasia) 03/19/2025 9:20 AM EDT Health Maintenance Due Date Last Done Comments [facility]-Hepatitis C Screening 1960 [facility]-Medicare Annual Wellness (AWV) 1960 [facility]-/Child/Adol SDOH Screenings 1960 Diabetes: Dental Exam 1968 [...] 2023 [facility]-Diabetes: Hemoglobin A1C 05/22/2024 11/23/2023, 07/28/2022 [id number] Vaccine ( - 2023- season) 2024 03/07/2021, 02/07/2021 [facility]-Influenza Vaccine (Season [...] Procedure discussed: discussed risks, benefits and alternatives Soft Crab Shedder present: no Timeout: timeout called immediately prior to procedure Prep: patient was prepped and draped in usual sterile fashion Prep type: Betadine Anesthesia: local anesthesia Procedure Details Cystoscope type: flexible Cystoscopy route: transurethral Cystoscopy location: confederated goshute bladder Irrigation used: saline Position: supine Urethra [...] R esult [facility] [address] [place] [address] * POC US Bladder Volume (01/10/2025 10:21 AM EDT) Urine, Volume 76 mL IMAGING Anatomical Region Laterality Modality Other Aarti Maldonado MD IMG POINT OF CARE ULTRASOUND Final Result * (ABNORMAL) POCT URINALYSIS DIPSTICK (01/10/2025 10:01 AM EDT) POCT Urine Color Yellow 01/10/2025 10:03 AM EDT [facility] POCT Urine Clarity Clear 01/10/2025 10:03 AM EDT [facility] POCT Urine Glucose >=1000(A) Negative mg/dL 01/10/2025 10:03 AM EDT [facility] POCT Urine Bilirubin Negative Negative mg/dL 01/10/2025 10:03 AM EDT [facility] POCT Urine Ketones Negative Negative mg/dL 01/10/2025 10:03 AM EDT [facility] POCT Urine Specific [place] 1.020 1.005 - 1.030 01/10/2025 10:03 AM EDT [facility] POCT Urine Blood Negative Negative 01/10/2025 10:03 AM EDT [facility] POCT pH, Urine 5.5 5.0 - 8.0 01/10/2025 10:03 AM EDT [facility] POCT Protein, Urine Negative Negative mg/dL 01/10/2025 10:03 AM EDT [facility] POCT Urobilinogen, Urine 0.2 0.2, 1.0 EU/dL 01/10/2025 10:03 AM EDT [facility] POCT Nitrite, Urine Negative Negative 01/10/2025 10:03 AM EDT [facility] POCT Urine Leukocyte Esterase Negative Negative 01/10/2025 10:03 AM EDT [facility] Urine 01/10/2025 10:0 1 AM EDT 01/10/2025 10:03 AM EDT us Aarti Maldonado MD LAB POINT OF CARE TE ST DOCKED DEVICE UNSOLICITED RESULTS Final Result [facility] [address], [place] from Last 3 Months Additional Health Concerns Active Problems Noted Date Diagnosed Date Autogenerated Problem 02/13/2025 Insurance [employer] MEDICARE Care Teams Pharmaceutical Officer Relationship Specialty Start Date End Date Ryne Bergman MD [address] [place] [address] PCP - General 04/21/24 Abiola Loyola, CLINICAL ADMINISTRATIVE COORDINATOR [address] [place] [address] Nurse Practitioner Urology 10/30/24 Aarti Maldonado MD [address] [place] [address] Surgeon Urology 01/10/25
--- OUTSIDE RECORDS SUMMARY | 2025-03-09 12:03 | XMS_ITS | Encounter Summary ---
Author Organization [facility] Address [address] [place] [address] Care Team Providers Care Crime Scene Evidence Technician Name Role Phone Ryne Bergman MD Primary Care Provider [phone] Abiola Loyola RUBY ON RAILS DEVELOPER Unavailable [phone] Encounter Details Date Type Department Care Team (Latest Contact Info) Description 01/09/2025 Travel Social History Tobacco Use Types Packs/Day Years Used Date Smoking Tobacco: Some Days Cigarettes 0.3 1.1 Started: 03/27/2024 Smokeless Tobacco: Never Alcohol Use [...] EDT Appointment [facility] [address] [place] [address] 03/14/2025 2:45 PM EDT Pre[place]Ad[facility] Testing [place] [facility] Pre-op Clinic [address], 1st [place] [address] 03/19/2025 9:20 AM EDT Hospital Encounter [facility] ROOM [address] [place] [address] Aarti Maldonado MD [address] [facility] [place] [address] 03/19/2025 9:20 AM EDT - 03/19/2025 11:35 AM EDT Surgery [facility]ATING RO[facility] [address] [place] [address] Aarti Maldonado MD [address] [address] ENUCLEATION, PROSTATE, TRANSURETHRAL, USING HOLMIUM LASER [[id number] (CPT )] 04/18/2025 10:30 AM EDT Office Visit Medical Office Building Urology [facility] [address] [facility], [address] [place] [address] Aarti Maldonado MD [address] [address] Scheduled Procedures Name Priority Associated [...] documented as of this encounter Care Teams Crime Scene Evidence Technician Relationship Specialty Start Date End Date Ryne Bergman MD [address] [place] [address] PCP - General 04/21/24 Abiola Loyola APRN [address] [facility] [place] [address] Nurse Practitioner Urology 10/30/24 documented as of this encounter
--- OUTSIDE RECORDS SUMMARY | 2025-03-09 12:03 | XMS_ITS | Encounter Summary ---
Author Organization [facility] Address [address] [place] [address] Care Team Providers Care Marketing Project Manager Name Role Phone Ryne Bergman MD Primary Care Provider Abiola Loyola ENVIRONMENTAL COMPLIANCE ENGINEER Unavailable [phone] Aarti Maldonado MD Unavailable [phone] Encounter Details Date Type Department Care Team (Late st Contact Info) Description 02/13/2025 Telephone [facility] [address], 2[address] [place] [address] Aarti Maldonado MD [address] [facility] [address] [place] [address] Social History Tobacco Use Types [...] patient, notified him surgery location changed to [facility] on 03/19 documented in this encounter Plan of Treatment Upcoming Encounters Date Type Department Care Team (Latest Contact Info) Description 03/12/2025 7:50 AM EDT Appointment [facility]iology [address] [place] [address] 03/14/2025 2:45 PM EDT [facility] Testing [facility] [address] [facility] 1[address] [place] [address] 03/19/2025 9:20 AM EDT Hospital Encounter [facility]PERATING ROOM [address] [place] [address] Aarti Maldonado MD [address] [address] 03/19/2025 9:20 AM EDT - 03/19/2025 11:35 AM EDT Surgery [facility] RO[facility] [address] [place] [address] Aarti Maldonado MD [address] [address] ENUCLEATION, PROSTATE, TRANSURETHRAL, USING HOLMIUM LASER [[id number] (CPT )] 04/18/2025 10:30 AM EDT Office Visit Medical Office Building Urology [address] [facility], [address] [place] [address] Aarti Maldonado MD [address] [address] Scheduled Procedures Name Priority Associated [...] documented as of this encounter Care Teams Marketing Project Manager Relationship Specialty Start Date End Date Ryne Bergman MD [address] [place] [address] PCP - General 04/21/24 Abiola Loyola, LUCHO [address] [address] Nurse Practitioner Urology 10/30/24 Aarti Maldonado MD [address] [place] [address] Surgeon Urology 01/10/25 documented as of this encounter
== END 2025-03-09 23:59 | disposition home or self-care (01) ==
LOC: LAB 12:01
PROVIDERS: PCP Family Medicine; Visit Provider Urology
DX: R31.29 Other microscopic hematuria (principal)
CPT/HCPCS: 87086

== ENCOUNTER 2025-03-10 23:23 | Observation (INO) | payer MEDICARE, SELFPAY ==
--- OUTSIDE RECORDS SUMMARY | 2025-01-10 09:45 | XMS_ITS | Encounter Summary ---
Author Organization [facility] Address [address] [id number] Care Team Providers Care Center Line Cutter Operator Name Role Phone Ryne Bergman MD Primary Care Provider [phone] Abiola Loyola POCKET BUILDER Unavailable [phone] Aarti Maldonado MD Unavailable Reason for Referral * Imaging (Routine) - Authorized Specialty Diagnoses / Procedures Referred By Kriss colin Referred To Contact Radiology Diagnoses Benign prostatic hyperplasia with urinary frequency Procedures MR Prostate w and wo IV Contrast Aarti Maldonado MD [address] [address] Phone: tel: fax: Referral ID Status Reason Start Date Expiration Date V isits Requested Visits Authorized [id number] Authorized 01/10/2025 07/12/2026 1 1 Reason for Visit * Reason Comments Cystoscope * Other Medical (Routine) - Closed Specialty Diagnoses / Procedures Referred By Kriss colin Referred To Contact Urology Diagnoses Microhematuria Procedures Cysto Aarti Maldonado MD [address] [address] Phone: tel: fax: Referral ID Status Reason Start Date Expiration Date Visits Re quested Visits Authorized [id number] Closed 11/30/2024 06/01/2026 1 1 Encounter Details Date Type Department Care Team (Late st Contact Info) Description 01/10/2025 9:45 AM EDT Office Visit [place] [facility] [address] [place] [address] Aarti Maldonado MD [address] [place] [address] Benign prostatic hyperplasia with urinary frequency (Primary Dx); Microhematuria Social History Tobacco Use Types Packs/Day Years Used Date Smoking Tobacco: Some Days Cigarettes 0.3 1.3 Started: 03/27/2024 Passive Smoke Exposure: Current Smokeless Tobacco: Never Tobacco Cessation:Ready to Q uit: Not Asked; Counseling Given: Not Answered Alcohol Use Standard Drinks/Week Comments Not Currently 1 (1 standard drink = 0.6 oz pur e alcohol) Very rarely drink PHQ-2 Answer Date Recorded Patient Health Questionnaire-2 Score 0 01/10/2025 PHQ-9 Answer Date Recorded Patient Health Questionnaire-9 Score 0 01/10/2025 Sex and Gender Information Value Date Recorded Sex Assigned at Male 10/30/2024 8:01 AM EST Legal Sex Male 1:17 PM EDT Gender Identity Not on file Sexual Orientation Not on file documented as of this encounter Last Filed Vital Signs Vital Sign Reading Time Taken Comments Blood Pressure 139/66 01/10/2025 10:06 AM EDT Pulse 64 01/10/2025 10:06 AM EDT Temperature 36.7 C (98 F) 01/10/2025 10:06 AM EDT Respiratory Rate 18 01/10/2025 10:06 AM EDT Oxygen Saturation 96% 01/10/2025 10:06 AM EDT Inhaled Oxygen Concentration - - Weight 106 kg (234 lb 2.1 oz) 01/10/2025 10:06 A M EDT Height 177.8 cm (5' 10 ) 01/10/2025 10:06 AM EDT Body Mass Index 33.59 01/10/2025 10:06 AM EDT documented in this encounter Functional Status * Over the past 2 weeks, how often have you been bothered by any of the following problems? Question Answer Date of Assessment Author Little interest or pleasure in doing things Not at all 01/10/2025 9:55 AM Bo Cochran Feeling down, depressed, or hopeless Not at all 01/10/2025 9:55 AM Bo Cochran Patient Health Questionnaire -2 Score 0 01/10/2025 9:55 AM Bo Cochran * Question Answer Date of Assessment Author Trouble falling or staying asleep, or sleeping too much Not at all 01/10/2025 9:55 AM Bo Cochran Feeling tired or having neli le energy Not at all 01/10/2025 9:55 AM Bo Cochran Poor appetite or overeating Not at all 01/10/2025 9: 55 AM Bo Cochran Feeling bad about yourself - or that you are a failure or have let yourself or your family down Not at all 01/10/2025 9:55 AM Bo Garza Trouble concentrating on thi ngs, such as reading the newspaper or watching television Not at all 01/10/2025 9:55 AM Bo Cochran Moving or speaking so slowly that other people could have noticed? Or the opposite - being so fidgety or restless that you have been moving around a lot more than usual. Not at all 01/10/2025 9:55 AM Bo Cochran Thoughts that you would be b yung off or hurting yourself in some way Not at all 01/10/2025 9:55 AM Bo Cochran Patient Health Questionnaire -9 Score 0 01/10/2025 9:55 AM Bo Cochran documented as of this encounter Miscellaneous Notes * Progress Notes - Aarti Maldonado MD - 01/10/2025 9:45 AM EDTAssociated Order(s): Cysto Pre-Procedure Diagnose(s): Microhematuria Post-Procedure Diagnose(s): Microhematuria Patient ID: Ramsey Castrejon is a 64 y.o. male. Encounter Diagnoses Name Primary? Microhematuria Benign prostatic hyperplasia with urinary frequency Yes Cysto Date/Time: 01/10/2025 10:30 PM Performed by: Aarti Maldonado MD Authorized by: Aarti Maldonado MD Procedure discussed: discussed risks, benefits and alternatives Clay Stain Mixer present: no Timeout: timeout called immediately prior to procedure Prep: patient was prepped and draped in usual sterile fashion Prep type: Betadine Anesthesia: local anesthesia Procedure Details Cystoscope type: flexible Cystoscopy route: transurethral Cystoscopy location: cahto bladder Irrigation used: saline Position: supine Urethra Urethra: normal Prostate Prostate: abnormal Appearance: obstructing Lobe enlargement: lateral lobe enlargement Bladder Bladder: normal Post-Procedure Details Catheter placed: no Appearance of urine after procedure: clear Outcome: patient tolerated procedure well with no complications Disposition: discharged home in satisfactory condition We discussed the options for the management of BPH/LUTS including medical therapy and/or surgical therapy. Surgical therapies discussed included Rezum, laser photovaporization of the prostate (Greenlight), transurethral resection of the prostate (TURP), simple prostatectomy, and holmium laser enucleation of the prostate (HoLEP). He elected for HoLEP I did discuss with them that his PSA is elevated at 4.37 and he was on finasteride at that time. I would advise an MRI to rule out a clinically significant prostate cancer. He was in agreement. If his MRI comes back normal will proceed with HoLEP. For HoLEP we discussed that he will likely have urinary incontinence after surgery and it is almostalways temporary. We discussed the benefits of pelvic floor physical therapy in aiding in this recovery. We discussed that retrograde ejaculation is very common after this surgery and is not medically harmful. We discussed that while lower risk of bleeding than some other surgical therapies there is still a risk of bleeding. There is a small senior living risk of developing scar tissue (stricture or bladder neck contracture). We discussed that the prostate chips will be sent to pathology. Post operatively his PSA should lower to around 1, and we will obtain a PSA at the 3 month post operative visit to assess this. We will plan to have his catheter in overnight Urine culture 2 weeks prior. documented in this encounter Plan of Treatment Upcoming Encounters Date Type Department Care Team (Latest Contact Info) Description 03/12/2025 7:50 AM EDT Appointment [facility] [address] [address] 03/14/2025 2:45 PM EDT Pre-Admission Testing [facility] [address] [place] [address] 03/19/2025 9:15 AM EDT Hospital Encounter [facility] OPERATING ROOM [address] [place] [address] Aarti Maldonado MD [address] [address] 03/19/2025 9:15 AM EDT - 03/19/2025 11:30 AM EDT Surgery [facility] OPERATING ROOM [address] [place] [address] Aarti Maldonado MD [address] [address] ENUCLEATION, PROSTATE, TRANSURETHRAL, USING HOLMIUM LASER [00509 (CPT )] 04/18/2025 10:30 AM EDT Office Visit Medical Office Building Urology [address] [facility], [address] [place] [address] Aarti Maldonado MD [address] [address] Scheduled Orders Name Type Priority Associated Diagnoses Orde r Schedule MR Prostate w and wo IV Contrast Imaging Routine Benign prostatic hyperplasia with urinary frequency Expected: 01/10/2025 (Approximate), Expires: 07/12/2026 Urine Culture - Lab Collect Microbiology Routine Benign prostatic hyperplasia with urinary frequency Expected: 01/10/2025 (Approximate), Expires: 07/12/2026 Scheduled Procedures Name Priority Associated Diagnoses Date/Ti me ENUCLEATION, PROSTATE, TRANSURETHRAL, USING HOLMIUM LASER BPH (benign prostatic hyperplasia) 03/19/2025 9:15 AM EDT documented as of this encounter Procedures Procedure Name Priority Date/Time Associated Diagnosis Comments CYSTO- UROLOGY Routine 01/10/2025 10:30 PM EDT Microhematuria POC US BLADDER SCAN FOR VOLUME Routine 01/10/2025 10:21 AM EDT Microhematuria Benign prostatic hyperplasia with urinary frequency POCT URINALYSIS DIPSTICK Routine 01/10/2025 10:01 AM EDT documented in this encounter Results * CYSTO- UROLOGY (01/10/2025 10:30 PM EDT) Narrative Aarti Maldonado MD - 01/10/2025 10:30 PM EDT Aarti Maldonado MD 01/10/2025 12:34 PM Cysto Date/Time: 01/10/2025 10:30 PM Performed by: Aarti Maldonado MD Authorized by: Aarti Maldonado MD Procedure discussed: discussed risks, benefits and alternatives Clay Stain Mixer present: no Timeout: timeout called immediately prior to procedure Prep: patient was prepped and draped in usual sterile fashion Prep type: Betadine Anesthesia: local anesthesia Procedure Details Cystoscope type: flexible Cystoscopy route: transurethral Cystoscopy location: cahto bladder Irrigation used: saline Position: supine Urethra Urethra: normal Prostate Prostate: abnormal Appearance: obstructing Lobe enlargement: lateral lobe enlargement Bladder Bladder: normal Post-Procedure Details Catheter placed: no Appearance of urine after procedure: clear Outcome: patient tolerated procedure well with no complications Disposition: discharged home in satisfactory condition Aarti Malodnado MD UROLOGY ORDERABLES Final Res ult * Creatinine, Plasma (01/10/2025 11:55 AM EDT) Creatinine, Plasma 0.84 0.70 - 1.20 mg/dL 01/10/2025 1:54 PM EDT [facility] eGFRcr 96.2 mL/min/1.7 3m*2 01/10/2025 1:54 PM EDT [facility] Comment:Reported eGFRcr in m L/min/1.73m2 is based the CKD-EPI 2020 equation that does not use a race coefficient. Blood Venous blood specimen / Unknown Venipuncture / Unknown 01/10/2025 11:55 AM EDT 01/10/2025 11:55 AM EDT us Aarti Maldonado MD LAB BLOOD ORDERABLES Final R esult [facility] [address] [place] [address] * POC US Bladder Volume (01/10/2025 10:21 AM EDT) Urine, Volume 76 mL IMAGING Anatomical Region Laterality Modality Other us Aarti Maldonado MD IMG POINT OF CARE ULTRASOUND Final Result * (ABNORMAL) POCT URINALYSIS DIPSTICK (01/10/2025 10:01 AM EDT) POCT Urine Color Yellow 01/10/2025 10:03 AM EDT [facility] POCT Urine Clarity Clear 01/10/2025 10:03 AM EDT [facility] POCT Urine Glucose >=1000(A) Negative mg/dL 01/10/2025 10:03 AM EDT [facility] POCT Urine Bilirubin Negative Negative mg/dL 01/10/2025 10:03 AM EDT [facility] POCT Urine Ketones Negative Negative mg/dL 01/10/2025 10:03 AM EDT [facility] POCT Urine Specific [place] 1.020 1.005 - 1.030 01/10/2025 10:03 AM EDT [facility] POCT Urine Blood Negative Negative 01/10/2025 10:03 AM EDT [facility] POCT pH, Urine 5.5 5.0 - 8.0 01/10/2025 10:03 AM EDT [facility] POCT Protein, Urine Negative Negative mg/dL 01/10/2025 10:03 AM EDT [facility] POCT Urobilinogen, Urine 0.2 0.2, 1.0 EU/dL 01/10/2025 10:03 AM EDT [facility] POCT Nitrite, Urine Negative Negative 01/10/2025 10:03 AM EDT [facility] POCT Urine Leukocyte Esterase Negative Negative 01/10/2025 10:03 AM EDT [facility] Urine 01/10/2025 10:0 1 AM EDT 01/10/2025 10:03 AM EDT us Aarti Maldonado MD LAB POINT OF CARE TE ST DOCKED DEVICE UNSOLICITED RESULTS Final Result [facility] [address] [place], [place] documented in this encounter Visit Diagnoses Diagnosis Benign prostatic hyperplasia with urinary frequency- Primary Microhematuria BPH (benign prostatic hyperplasia) Unspecified hyperplasia of prostate without urinary obstruction and other lower urinary tract symptoms (LUTS) documented in this encounter Administered Medications Inactive Administered Medications - up to 3 most recent administrations Medication Order MAR Action Action Date Dose Rate Site lidocaine (Uro-Jet) 2 % gel Urethral, Once, 1 dose, On Wed01/10/25 at 1115, RoutineIndications:Microhematur ia,Benign prostatic hyperplasia with urinary frequency Given 01/10/2025 10:21 AM EDT sulfamethoxazole-trimethoprim (Bactrim DS) 800-160 MG per tablet 1 tablet 1 tablet, Oral, Once, 1 dose, On Wed01/10/25 at 1115, RoutineIndications:Microhematur ia,Benign prostatic hyperplasia with urinary frequency Given 01/10/2025 10:21 AM EDT 1 tablet documented in this encounter Additional Health Concerns Assessment Noted Time PHQ-9 Depression Total Score: 0 01/11/20 9:55 AM EDT A fall risk assessment has been complete d for the patient 01/10/2025 9:55 AM EDT A Body Mass Index follow-up plan has been documented for the patient 01/10/2025 12:34 PM EDT documented as of this encounter Care Teams Center Line Cutter Operator Relationship Specialty Start Date End Date Ryne Bergman MD [address] [place], [place] [id number] PCP - General 04/21/24 Abiola Loyola APRN [address] [facility] [address] [place] [address] Nurse Practitioner Urology 10/30/24 Aarti Maldonado MD [address] [address] Surgeon Urology 01/10/25 documented as of this encounter
--- OUTSIDE RECORDS SUMMARY | 2025-01-10 09:45 | XMS_ITS | Encounter Summary ---
Author Organization [facility] Address [address] [id number] Care Team Providers Care Table Games Supervisor Name Role Phone Ryne Bergman MD Primary Care Provider [phone] Abiola Loyola SENIOR PLANNING MANAGER Unavailable [phone] Aarti Maldonado MD Unavailable [phone] Reason for Referral * Imaging (Routine) - Authorized Specialty Diagnoses / Procedures Referred By Kriss colin Referred To Contact Radiology Diagnoses Benign prostatic hyperplasia with urinary frequency Procedures MR Prostate w and wo IV Contrast Aarti Maldonado MD [address] [address] Phone: tel: fax: Referral ID Status Reason Start Date Expiration Date V isits Requested Visits Authorized [id number] Authorized 01/10/2025 07/12/2026 1 1 Reason for Visit * Reason Comments Cystoscope * Other Medical (Routine) - Closed Specialty Diagnoses / Procedures Referred By Kriss colin Referred To Contact Urology Diagnoses Microhematuria Procedures Cysto Aarti Maldonado MD [address] [address] Phone: tel: fax: Referral ID Status Reason Start Date Expiration Date Visits Re quested Visits Authorized [id number] Closed 11/30/2024 06/01/2026 1 1 Encounter Details Date Type Department Care Team (Late st Contact Info) Description 01/10/2025 9:45 AM EDT Office Visit [place] [facility] [address] [place] [address] Aarti Maldonado MD [address] [place] [address] Benign prostatic hyperplasia with urinary [...] Procedure discussed: discussed risks, benefits and alternatives Sleeve Setter Lockstitch present: no Timeout: timeout called immediately prior to procedure Prep: patient was prepped and draped in usual sterile fashion Prep type: Betadine Anesthesia: local anesthesia Procedure Details Cystoscope type: flexible Cystoscopy route: transurethral Cystoscopy location: campo bladder Irrigation used: saline Position: supine Urethra [...] risk of bleeding. There is a small skilled nursing risk of developing scar tissue (stricture or [...] 03/12/2025 7:50 AM EDT Appointment [facility] [address] [address] 03/14/2025 2:45 PM EDT Pre-Admission Testing [facility] [address] [place] [address] 03/19/2025 9:15 AM EDT Hospital Encounter [facility] OPERATING ROOM [address] [place] [address] Aarti Maldonado MD [address] [address] 03/19/2025 9:15 AM EDT - 03/19/2025 11:30 AM EDT Surgery [facility] OPERATING ROOM [address] [place] [address] Aarti Maldonado MD [address] [address] ENUCLEATION, PROSTATE, TRANSURETHRAL, USING HOLMIUM LASER [27333 (CPT )] 04/18/2025 10:30 AM EDT Office Visit Medical Office Building Urology [address] [facility], [address] [place] [address] Aarti Maldonado MD [address] [address] Scheduled Orders Name Type Priority [...] Procedure discussed: discussed risks, benefits and alternatives Sleeve Setter Lockstitch present: no Timeout: timeout called immediately prior to procedure Prep: patient was prepped and draped in usual sterile fashion Prep type: Betadine Anesthesia: local anesthesia Procedure Details Cystoscope type: flexible Cystoscopy route: transurethral Cystoscopy location: campo bladder Irrigation used: saline Position: supine Urethra Urethra: normal Prostate Prostate: abnormal Appearance: obstructing Lobe enlargement: lateral lobe enlargement Bladder Bladder: normal Post-Procedure Details Catheter placed: no Appearance of urine after procedure: clear Outcome: patient tolerated procedure well with no complications Disposition: discharged home in satisfactory condition Aarti Maldonado MD UROLOGY ORDERABLES Final Res ult * Creatinine, Plasma (01/10/2025 11:55 AM EDT) Creatinine, Plasma 0.84 0.70 - 1.20 mg/dL 01/10/2025 1:54 PM EDT [facility] eGFRcr 96.2 mL/min/1.7 3m*2 01/10/2025 1:54 PM EDT [facility] Comment:Reported eGFRcr in m L/min/1.73m2 is based the CKD-EPI 2020 equation that does not use a race coefficient. Blood Venous blood specimen / Unknown Venipuncture / Unknown 01/10/2025 11:55 AM EDT 01/10/2025 11:55 AM EDT us Aarti Maldonado MD LAB BLOOD ORDERABLES Final R esult [facility] [address] [place] [address] * POC US Bladder Volume (01/10/2025 10:21 AM EDT) Urine, Volume 76 mL IMAGING Anatomical Region Laterality Modality Other us Aarti Maldonado MD IMG POINT OF CARE ULTRASOUND Final Result * (ABNORMAL) POCT URINALYSIS DIPSTICK (01/10/2025 10:01 AM EDT) POCT Urine Color Yellow 01/10/2025 10:03 AM EDT [facility] POCT Urine Clarity Clear 01/10/2025 10:03 AM EDT [facility] POCT Urine Glucose >=1000(A) Negative mg/dL 01/10/2025 10:03 AM EDT [facility] POCT Urine Bilirubin Negative Negative mg/dL 01/10/2025 10:03 AM EDT [facility] POCT Urine Ketones Negative Negative mg/dL 01/10/2025 10:03 AM EDT [facility] POCT Urine Specific [place] 1.020 1.005 - 1.030 01/10/2025 10:03 AM EDT [facility] POCT Urine Blood Negative Negative 01/10/2025 10:03 AM EDT [facility] POCT pH, Urine 5.5 5.0 - 8.0 01/10/2025 10:03 AM EDT [facility] POCT Protein, Urine Negative Negative mg/dL 01/10/2025 10:03 AM EDT [facility] POCT Urobilinogen, Urine 0.2 0.2, 1.0 EU/dL 01/10/2025 10:03 AM EDT [facility] POCT Nitrite, Urine Negative Negative 01/10/2025 10:03 AM EDT [facility] POCT Urine Leukocyte Esterase Negative Negative 01/10/2025 10:03 AM EDT [facility] Urine 01/10/2025 10:0 1 AM EDT 01/10/2025 10:03 AM EDT us Aarti Maldonado MD LAB POINT OF CARE TE ST DOCKED DEVICE UNSOLICITED RESULTS Final Result [facility] [address] [place], [place] documented in this encounter Visit Diagnoses [...] documented as of this encounter Care Teams Table Games Supervisor Relationship Specialty Start Date End Date Ryne Bergman MD [address] [place], [place] [id number] PCP - General 04/21/24 Abiola Loyola APRN [address] [facility] [address] [place] [address] Nurse Practitioner Urology 10/30/24 Aarti Maldonado MD [address] [address] Surgeon Urology 01/10/25 documented as of this encounter
--- NOTE | 2025-03-10 23:20 | ECG_ITS ---
APPROVED REPORT Exam: Resting ECG HR:65 bpm ECG Measurements Heart Rate 65 AXES WV 183 P 51 QRSd 94 QRS 13 QT 403 T 50 QTc 414 Conclusion SINUS RHYTHM NONSPECIFIC T-WAVE ABNORMALITY No STEMI Electronically signed by : DION MICHELLE, 03/12/2025 03:51:24
[2025-03-10 23:29] VITALS: PULSE 61
[2025-03-10] MEDS: ASPIRIN 81MG CHEWABLE TABLET 324 MG PO (23:33)
--- NOTE | 2025-03-10 23:33 | CT_ITS ---
PROCEDURE INFORMATION: Exam: CTA Chest With Contrast Exam date and time: 03/11/2025 12:16 AM Age: 64 years old Clinical indication: Pain; Left-sided; Additional info: Chest pain pressure now hypotensive TECHNIQUE: Imaging protocol: Computed tomographic angiography of the chest with contrast. Exam focused on the arteries. 3D rendering (Not supervised by radiologist): MIP and/or 3D reconstructed images were created by the technologist. Radiation optimization: All CT scans at this facility use at least one of these dose optimization techniques: automated exposure control; mA and/or kV adjustment per patient size (includes targeted exams where dose is matched to clinical indication); or iterative reconstruction. Contrast material: ISOUVE 370; Contrast volume: 80 ml; Contrast route: INTRAVENOUS (IV); COMPARISON: CR XR CHEST PORTABLE 03/10/2025 11:50 PM FINDINGS: Pulmonary arteries: Evaluation of the segmental pulmonary artery branches is limited by excessive motion artifact and cannot be evaluated for subtle acute emboli. Central pulmonary arteries are free of emboli. Aorta: Unremarkable. No aortic aneurysm. No aortic dissection. Lungs: A 3 mm nodule anterior right middle lobe on image 47. A 6 mm subpleural nodule anterior right middle lobe on image 51. A 4 mm nodule in the lateral right costophrenic angle on image 67. A 4 mm nodule in the lingula on image 41. Lung crum otherwise clear. Pleural spaces: See Lungs finding. Heart: Unremarkable. No cardiomegaly. No pericardial effusion. Lymph nodes: Unremarkable. No enlarged lymph nodes. Bones/joints: Unremarkable. No acute fracture. Soft tissues: Unremarkable. IMPRESSION: 1. Evaluation of the segmental pulmonary artery branches is limited by excessive motion artifact and cannot be evaluated for subtle acute emboli. Central pulmonary arteries are free of emboli. 2. Bilateral lung nodules largest measuring 6 mm. For patients at low risk (minimal or absent history of smoking and of other known risk factors), recommend CT Chest at 3-6 months, then consider CT Chest at 18-24 months. For patients at high risk (history of smoking or of other known risk factors), recommend CT Chest at 3-6 months, then CT Chest at 18-24 months. (Reference: Jeanie) REFERENCES: Jeanie Elizabeth et al. Guidelines for Management of Incidental Pulmonary Nodules Detected on CT Images: From the Fleischner Society 2017. Radiology. 2017;284(1):228-243.
--- NOTE | 2025-03-10 23:33 | XR_ITS ---
PROCEDURE INFORMATION: Exam: XR Chest Exam date and time: 03/10/2025 11:50 PM Age: 64 years old Clinical indication: Pain; Shortness of breath; Left-sided; Additional info: HENRRY foster TECHNIQUE: Imaging protocol: Radiologic exam of the chest. Views: 1 view. COMPARISON: CR XR CHEST PORTABLE 01/11/2025 6:57 PM FINDINGS: Lungs: Unremarkable. No consolidation. Pleural spaces: Unremarkable. No pleural effusion. No pneumothorax. Heart/Mediastinum: Heart size mildly enlarged and stable. Bones/joints: Unremarkable. IMPRESSION: Stable chest x-ray with no acute disease. Mild cardiomegaly.
[2025-03-10] MEDS: NITROGLYCERIN 0.4MG SL TABLET 0.4 MG SL (23:35)
[2025-03-10] MEDS: LACTATED RINGERS 1000ML 1,000 ML 999 ML IV (23:36)
[2025-03-10 23:43] VITALS: BP 100/56; PULSE 67; RESP 18; TEMP 36.5; O2SAT 98; BMI 34.0
[2025-03-10] MEDS: HYDROMORPHONE 2MG/ML SYRINGE 0.25 MG IV (23:46)
[2025-03-10] MEDS: ONDANSETRON 4MG/2ML VIAL 4 MG IV (23:46)
[2025-03-10 23:48] LABS: Basophils # 0.1 K/mm3 (0-0.2); Basophils % 0.6 % (0.1-2.0); Eosinophils # 0.3 Kmm3 (0.0-0.4); Eosinophils % 2.2 % (0.1-12.0); Hematocrit 39.8 % (42.0-52.0); Hemoglobin 12.8 g/dL (14.1-18.0); Immature Granulocytes # 0.04 10^3uL; Immature Granulocytes % 0.3 %; Lymphocytes % 32.2 % (10-50); Mean Corpuscular HGB Conc 32.2 g/dL (31.8-35.4); Mean Corpuscular Hemoglobin 29.8 pg (27.0-31.2); Mean Corpuscular Volume 92.8 fl (80-94); Mean Platelet Volume 9.6 fl (7.4-10.4); Monocytes # 1.1 K/mm3 (0.1-1.0); Monocytes % 8.8 % (1.7-9.3); Neutrophils % 55.9 % (37.0-80.0); Nucleated Red Blood Cells # 0 10^3/uL; Nucleated Red Blood Cells % 0 %; Platelet Count 246 K/mm3 (142-424); Red Blood Count 4.29 M/mm3 (4.60-6.20); Red Cell Distribution Width 13.2 % (11.5-17.5); Red Cell Distribution Width-SD 44.7 fL; White Blood Count 12.5 K/mm3 (4.8-10.8)
[2025-03-10 23:50] VITALS: BP 86/44; PULSE 56; RESP 13; O2SAT 95
[2025-03-10 23:54] LABS: INR 0.94 (0.9-1.1); Prothrombin Time 10.5 seconds (10.1-12.5)
[2025-03-10 23:55] LABS: Albumin Level 4.3 g/dl (3.5-5.0); Chloride 107 mmol/L (98-107); Sodium 138 mmol/L (136-145)
[2025-03-10 23:56] LABS: Potassium 3.8 mmoL/L (3.5-5.1)
--- NOTE | 2025-03-10 23:56 | HMH.EDCP ---
Discharge Plan Disposition Patient Disposition: Admitted Condition: Fair Prescriptions Prescriptions: No Action topiramate [Topamax] 25 mg tablet 25 mg PO QDAY albuterol sulfate 90 mcg/actuation HFA aerosol inhaler 1 inh inhalation Q6H Qty: 6.7 2RF (DME) OneTouch Verio test strips Strip See Rx Instructions .ROUTE .MEDSUPPLY Qty: 10 Patient Comments: USE 1 STRIP TO CHECK GLUCOSE TWICE DAILY DIRECTED Rx Instructions: As directed rosuvastatin 20 mg tablet 20 mg PO DAILY Patient Comments: TAKE 1 TABLET BY MOUTH ONCE DAILY (DME) FreeStyle Yuliya 3 Plus Sensor Device See Rx Instructions .ROUTE .MEDSUPPLY Qty: 1 Patient Comments: USE SENSOR EVERY 15 DAYS Rx Instructions: As directed ([facility] pen needle, diabetic 32 gauge x 5/32 needle See Rx Instructions .ROUTE .MEDSUPPLY Qty: 1200 Patient Comments: USE 1 PEN SUBCUTANEOUSLY THREE TIMES DAILY WITH INJECTABLE MEDICATION Rx Instructions: As directed pramipexole 1 mg tablet 1 mg PO DAILY Patient Comments: TAKE 1 TABLET BY MOUTH ONCE DAILY AT NIGHT tamsulosin 0.4 mg capsule 0.4 mg PO DIRECTED Patient Comments: TAKE 1 CAPSULE BY MOUTH TWICE DAILY 30 MINUTES AFTER MEAL Jardiance 10 mg tablet 10 mg PO DAILY Patient Comments: TAKE 1 TABLET BY MOUTH ONCE DAILY valsartan 320 mg tablet 320 mg PO DAILY neomycin-polymyxin B-dexameth 3.5mg/mL-10,000 unit/mL-0.1 % drops,suspension 1 drp Eye-Both ONCE nifedipine 90 mg tablet extended release 90 mg PO DAILY Qty: 30 2RF spironolactone [Aldactone] 25 mg tablet 25 mg PO DAILY Qty: 30 2RF finasteride [Proscar] 5 mg tablet 5 mg PO DAILY Qty: 90 3RF metformin 850 MG tablet 750 mg PO DAILY pioglitazone [Actos] 45 mg Tablet 45 mg PO DAILY insulin lispro protamin-lispro 100 unit/mL (75-25) Insulin Pen 30 unit SQ DAILY Rx Instructions: 60 UNITS IN AM, 30 UNITS AT NOON, 60 UNITS AT BEDTIME fluoxetine 60 mg Tablet 60 mg PO DAILY potassium chloride 20 mEq Tablet Extended Release 20 meq PO DAILY aspirin 81 mg capsule 81 mg PO DAILY Qty: 30 0RF methocarbamol 500 mg tablet 500 mg PO TID Qty: 42 0RF Referrals Follow up/Referrals: Provider,Referral, MD [Primary Care Provider, Medical] - See instructions Clinical Impressions Clinical Impression: Chest pain Print Language Print Language: Albanian Discharge ED Provider: Andreea [facility] Chief Complaint: Chest Pain Stated Complaint: chest pain Time Seen by Provider: 03/10/25 23:26 Mode of Arrival: Wheelchair Source of Information: Patient Description of Symptoms (Recalled from ER Triage Doc. by RN): Pt presents to ED for CP that started approx 20 minutes ago. Pt states he's not experienced CP like this before. Pain starts in the epigstric area and radiates upward. Pt rates pain /. History of Present Illness HPI narrative: 64-year-old male with history of TIA, hypertension, hyperlipidemia, CHF presents to the ER with complaints of chest pain that started approximately 20 to 30 minutes prior to arrival. He has never had pain like this before but demonstrates to his low substernal area and states it feels like heavy pressure in the weight on his chest radiating into the left side of the chest. He states he is also dizzy and lightheaded and when he took his blood pressure at home it was only 100. He states usually at home his blood pressure runs in the 150s. He states about 10 days ago he had a appointment with his fondant machine operator to change some of his medications and he states his blood pressure has been somewhat improved but not this low at home. Review of records from cardiology demonstrate that in the office his blood pressure on the machine was systolics in the 100s but manual was 120s. Patient reports no nausea or vomiting but has had diarrhea today, he states he is lightheaded but has no numbness, tingling, or weakness. Related Data Home Medications ?Medication ?Instructions ?Recorded ?Confirmed topiramate 25 mg tablet (Topamax) 25 mg PO QDAY STILES 10/05/17 03/05/25 metformin 850 mg tablet 750 mg PO DAILY Diabetes 02/28/21 03/05/25 fluoxetine 60 mg tablet 60 mg PO DAILY 03/17/24 03/05/25 insulin lispro protamine-lispro 30 unit SQ DAILY 03/17/24 03/05/25 100 unit/mL (75-25) subcutaneous pen pioglitazone 45 mg tablet (Actos) 45 mg PO DAILY 03/17/24 03/05/25 potassium chloride 20 mEq 20 meq PO DAILY 03/17/24 03/05/25 tablet,extended release blood sugar diagnostic (OneTouch #10 ea 01/25/25 03/05/25 Verio test strips) blood-glucose sensor (FreeStyle #1 ea 01/25/25 03/05/25 Yuliya 3 Plus Sensor device) empagliflozin 10 mg tablet 10 mg PO DAILY 01/25/25 03/05/25 (Jardiance) pen needle, diabetic 32 gauge x #1,200 ea 01/25/25 03/05/25 pramipexole 1 mg tablet 1 mg PO DAILY 01/25/25 03/05/25 rosuvastatin 20 mg tablet 20 mg PO DAILY 01/25/25 03/05/25 tamsulosin 0.4 mg capsule 0.4 mg PO DIRECTED 01/25/25 03/05/25 valsartan 320 mg tablet 320 mg PO DAILY 01/25/25 03/05/25 mvjuwaxj-moxaxrhoi-wpgskdux 3.5 1 drp Eye-Both ONCE 02/14/25 03/05/25 mg/mL-10,000 unit/mL-0.1% eye drops Previous Rx's ?Medication ?Instructions ?Recorded albuterol sulfate 90 mcg/actuation 1 inh inhalation Q6H #6.7 grams 04/19/24 aerosol inhaler finasteride 5 mg tablet (Proscar) 5 mg PO DAILY #90 tabs 11/20/24 aspirin 81 mg capsule 81 mg PO DAILY #30 caps 01/11/25 nifedipine 90 mg tablet,extended 90 mg PO DAILY #30 tabs 02/14/25 release spironolactone 25 mg tablet 25 mg PO DAILY #30 tabs 02/14/25 (Aldactone) methocarbamol 500 mg tablet 500 mg PO TID #42 tabs 03/05/25 Allergies Allergy/AdvReac Type Severity Reaction Status Date / Time oxybutynin Allergy Severe angioedema Verified 02/27/25 10:29 morphine (MORPHINE) Allergy Unknown Verified 02/27/25 10:29 [facility] Disclaimer: The information contained in this section may have been updated after the patient was seen, as this information can be updated by other users. Medical History TIA (transient ischemic attack) Urinary tract infection Anxiety and depression Hyperlipidemia Hypertension H/O carpal tunnel syndrome Diabetes mellitus, type 2 Sleep apnea History of chest pain Surgical History H/O discectomy History of cholecystectomy Family History Other Bone cancer Kidney failure Lung cancer Social History Smoking Status: Never smoker alcohol intake: never substance use type: denies use current occupational status: other Travel in the last 8 weeks?: None household members: spouse housing: house current occupational exposures/hazards: No caffeine: Yes Have you lived/traveled outside US in past 30 days?: No Contact w/someone who lives/traveled outside US past 30 days?: No Exposure to someone with infectious disease in past 14 days?: No Do you have a fever (greater than 100.4 F or 38 C)?: No Have you tested positive for COVID-19?: No Exposed to someone with COVID-19 in past 14 days?: No Do you have a sore throat?: No Do you have a cough?: No Do you have any weakness?: No Do you have any diarrhea?: No Are you experiencing any unusual bleeding?: No Do you have any muscle aches/pain?: No Do you have any abdominal pain?: No Are you experiencing loss of taste or smell?: No Other Medical History Have you received the Flu Vaccine for this season: No Have you received the Pneumonia Vaccine: Yes ROS Obtained: Yes Systems reviewed as appropriate & no additional complaints except as documented Per HPI Physical Exam General General appearance: alert and in no apparent distress Head Head exam: atraumatic and normocephalic Eye Eye exam: Present PERRL and EOMI ENT ENT exam: Present mucous membranes moist Neck Neck exam: Present normal inspection and full ROM Chest Chest inspection: Present symmetric chest wall rise and tenderness (Anterior left-sided chest wall with no evidence of trauma) Respiratory Respiratory exam: Present normal lung sounds bilaterally; Absent respiratory distress, wheezes or stridor Cardiovascular Cardiovascular exam: Present regular rate and normal rhythm Abdominal Exam Abdominal exam: Present soft; Absent distention, tenderness, guarding or rebound Extremities Exam Extremities exam: Present full ROM and edema (Mild bilateral lower extremities) Neurological Exam Neurological exam: Present alert and oriented X3; Absent motor sensory deficit Psychiatric Psychiatric exam: Present normal affect and normal mood Skin Skin exam: Present warm and dry HEART Score HEART Score HEART Score assessment performed?: Yes History (anamnesis): Moderately suspicious ECG: Non-specific disturbance Age: >65 years Risk factors: Atherosclerosis history Troponin: </= normal limit HEART Score: 6 Critical Care Critical Care Time Critical Care Time: No Medical Decision Making Medical Records Medical records reviewed: Yes I reviewed the patient's medical records. Jay Inquiry Pt receiving controlled substance: No Vital Signs Vital Signs: 03/10/25 23:29 03/10/25 23:43 03/10/25 23:50 Temperature 97.7 F Temperature Source Oral Pulse Rate 61 56 L Pulse Rate [Left] 67 Respiratory Rate 18 13 Blood Pressure 86/44 L Blood Pressure [Right Arm] 100/56 L Blood Pressure Mean 56 Blood Pressure Mean [Right Arm] 70 02 Sat by Pulse Oximetry 98 95 Oxygen Delivery Method Room Air 03/11/25 00:10 03/11/25 00:40 03/11/25 00:50 Temperature Temperature Source Pulse Rate 55 L 62 60 Pulse Rate [Left] Respiratory Rate 16 24 20 Blood Pressure 92/45 L 98/49 L 96/48 L Blood Pressure [Right Arm] Blood Pressure Mean 57 59 62 Blood Pressure Mean [Right Arm] 02 Sat by Pulse Oximetry 93 L 99 98 Oxygen Delivery Method 03/11/25 01:00 Temperature Temperature Source Pulse Rate 61 Pulse Rate [Left] Respiratory Rate 18 Blood Pressure 102/51 L Blood Pressure [Right Arm] Blood Pressure Mean 65 Blood Pressure Mean [Right Arm] 02 Sat by Pulse Oximetry 98 Oxygen Delivery Method Lab Data Labs: Lab Results 03/10/25 23:22: WBC 12.5 H, RBC 4.29 L, Hgb 12.8 L, Hct 39.8 L, MCV 92.8, MCH 29.8, MCHC 32.2, RDW 13.2, Plt Count 246, MPV 9.6, Neut % (Auto) 55.9, Lymph % (Auto) 32.2, [place] % (Auto) 8.8, Eos % (Auto) 2.2, Baso % (Auto) 0.6, Neut # (Auto) 7.0, Lymph # (Auto) 4.0, [place] # (Auto) 1.1 H, Eos # (Auto) 0.3, Baso # (Auto) 0.1, PT 10.5, INR 0.94, D-Dimer 0.31, Sodium 138, Potassium 3.8, Chloride 107, Carbon Dioxide 24, Anion Gap 10.8, BUN 26 H, Creatinine 1.20, Estimated Creat Clear 89, Estimated GFR 61, Est GFR ( Amer) 73, Glucose 157 H, Calcium 10.7 H, Total Bilirubin 0.6, AST 31, ALT 27, Alkaline Phosphatase 75, Troponin I < 0.01, NT-Pro-B Natriuret Pep 71.1, Total Protein 6.8, Albumin 4.3, Globulin 2.5, Albumin/Globulin Ratio 1.7 03/10/25 23:22 03/10/25 23:22 Response Orders (Tests/Meds): ED MEDICATIONS Generic Name Dose Route Start Last Admin Trade Name Frebest PRN Reason Stop Dose Admin Enoxaparin Sodium 105 mg 03/11/25 01:45 Enoxaparin 120mg/0.8ml Syringe SUBCUT 03/11/25 01:46 ONCE ONE Nitroglycerin 0.4 mg 03/10/25 23:26 03/10/25 23:35 Nitroglycerin 0.4mg Sl Tablet SL 03/11/25 23:26 0.4 mg Q5MINP PRN Administration Chest Pain Sodium Chloride 10 ml 03/11/25 00:38 03/11/25 00:39 Sodium Chloride 0.9% 10ml Syr (Rad Only) IV 04/10/25 00:37 10 ml NEEDED PRN Administration Maintain IV Site Discontinued Medications Generic Name Dose Route Start Last Admin Trade Name Frebest PRN Reason Stop Dose Admin Aspirin 324 mg 03/10/25 23:26 03/10/25 23:33 Aspirin 81mg Chewable Tablet PO 03/10/25 23:27 324 mg ONCE ONE Administration Hydromorphone HCl 0.25 mg 03/10/25 23:41 03/10/25 23:46 Hydromorphone 2mg/Ml Syringe IV 03/10/25 23:42 0.25 mg ONCE ONE Administration Lactated Ringer's 1,000 mls @ 999 mls/hr 03/10/25 23:33 03/10/25 23:36 Lactated Ringer's 1000 Ml Bag IV 03/11/25 00:33 999 mls/hr .Q1H1M ONE Administration Iopamidol 80 ml 03/11/25 00:38 03/11/25 00:39 Iopamidol-370 (76%);100ml Bottle IV 03/11/25 00:39 80 ml ONCE ONE Administration Ondansetron HCl 4 mg 03/10/25 23:42 03/10/25 23:46 Ondansetron 4mg/2ml Vial IV 03/10/25 23:43 4 mg ONCE ONE Administration Sodium Chloride 40 ml 03/11/25 00:38 03/11/25 00:39 0.9 % Sodium Chloride 50 Ml Vial IV 03/11/25 00:39 40 ml ONCE ONE Administration ORDERS Category Date Time Status CTA Chest [CT angio chest - dissection] Stat Cat Scan 03/10/25 23:33 Completed CXR --portable [XR chest portable] Stat Exams 03/10/25 23:33 Completed POCUS Point of Care (ER Only) Stat Exams 03/10/25 23:34 Completed Complete Blood Count Auto Diff Stat Lab 03/10/25 23:22 Completed Comprehensive Metabolic Panel Stat Lab 03/10/25 23:22 Completed D-Dimer Stat Lab 03/10/25 23:22 Completed NT Pro Brain Natriuretic Pep. Stat Lab 03/10/25 23:22 Completed Prothrombin Time INR Stat Lab 03/10/25 23:22 Completed Troponin I Q3H Lab 03/11/25 02:30 Ordered Troponin I Q3H Lab 03/11/25 05:30 Ordered Troponin I Stat Lab 03/10/25 23:22 Completed MDM Narrative Medical Decision Narrative: In summary, this 64-year-old male with comorbidities described in the HPI presents to the emergency department today with chest pain and pressure. On initial evaluation patient is borderline hypotensive but otherwise hemodynamically stable, afebrile, tenderness to palpation of the chest wall with no evidence of trauma, no numbness, tingling, or weakness, GCS 15, abdominal exam benign. Differential diagnosis includes but is not limited to ACS, PE, dissection, pericardial effusion, CHF exacerbation, NSTEMI, esophageal spasm, pneumothorax, electrolyte abnormality, among others. Based on these concerns, I ordered serum labs, cardiac workup, CTA for dissection was ordered though I have lower suspicion for dissection with his hypotension and I am slightly more concerned for it. ECG personally interpreted demonstrates normal sinus rhythm, rate 65, normal axis, OR and QTc, no STEMI. I performed [id number] bedside ultrasound on this patient which demonstrates no gross wall motion abnormality, no pericardial effusion, no evidence of right heart strain. See procedure note for details I reached out to Dr. Flynn with the patient's concerning symptoms. He has only had slight relief of his symptoms with nitro but this made him more hypotensive so additional nitro is not being administered at this time. He is receiving IV fluids. Dr. Flynn and I discussed this case and reviewed the patient's ECG. He agrees with performing a CTA for dissection and recommends that if patient has an otherwise reassuring workup to give therapeutic Lovenox and admit the patient to the hospital. I appreciate his recommendations. Labs personally reviewed demonstrate mild leukocytosis and anemia which is nonactionable, platelets normal, D-dimer normal, CMP with mild prerenal azotemia, initial troponin undetectably low less than 0.01. XR personally interpreted demonstrates no acute thoracic abnormality, see radiology for final interpretation. CT imaging personally interpreted demonstrate no dissection or large PE, few pulmonary nodules present. See radiology read for final trepidation. On reassessment patient's pain is significantly improved but not yet absent. I have already spoken with the patient about admission which was recommended by Dr. Flynn as well as therapeutic Lovenox. He is agreeable to this. Blood pressure improved. Therapeutic Lovenox administered to the patient. I discussed this case with the hospitalist who has accepted the patient for admission.
[2025-03-10 23:58] LABS: Alanine Aminotransferase 27 U/L (12-78); Albumin/Globulin Ratio 1.7 (1.1-1.8); Alkaline Phosphatase 75 U/L (38-126); Anion Gap 10.8 mEq/L (5-15); Aspartate Amino Transferase 31 U/L (17-59); Bilirubin,Total 0.6 mg/dl (0.2-1.3); Blood Urea Nitrogen 26 mg/dl (9-20); Carbon Dioxide 24 mmol/L (22.0-30.0); Creatinine Clearance Estimated 89 mL/min (50-200); Estimated Glomerular Filt Rate 61 ml/min (>60); GFR (African American) 73 ML/MIN (>60); Globulin 2.5 g/dL (1.3-3.2); Total Protein,Serum 6.8 g/dl (6.3-8.2)
[2025-03-10 23:59] LABS: Calcium 10.7 mg/dl (8.4-10.2); Glucose 157 mg/dl (74-100)
[2025-03-11] VITALS (18 sets, daily range): BP systolic 92–135; BP diastolic 45–66; PULSE 55–75; RESP 14–24; TEMP 36.5–36.8; O2SAT 93–100; BMI 34.0
[2025-03-11 00:04] LABS: D-Dimer 0.31 ug/mL (0.0-0.5)
[2025-03-11 00:07] LABS: NT Pro Brain Natriuretic Pep. 71.1 pg/mL (0-125)
[2025-03-11 00:15] LABS: Troponin I < 0.01 ng/ml (0.00-0.034)
--- OUTSIDE RECORDS SUMMARY | 2025-03-11 00:38 | XMS_ITS | Clinical Summary ---
Author Organization [facility] Address [address] [place] [address] Care Team Providers Care Transplant Nurse Name Role Phone Ryne Bergman MD Primary Care Provider [phone] Abiola Loyola APRN Unavailable [phone] Aarti Maldonado MD Unavailable [phone] Allergies Active Allergy Reactions Criticality Noted Date [...] Department Care Team Description 03/09/2025 Orders Only [facility] [address], [facility] [place] [address] Aarti Maldonado MD 03/09/2025 Telephone [facility] [address], [address] [place] [address] Aarti Maldonado MD HCN Clinical Concern/Question 03/08/2025 Orders Only [facility] [address], [address] [place] [address] [place] [address] Aarti Maldonado MD Microhematuria (Primary Dx) 03/08/2025 Telephone [facility] [address], [address] [place] [address], [place] [address] Aarti Maldonado MD 03/05/25 Urine culture results from [facility] 02/13/2025 Telephone [facility] [address], [facility] [place] [address] Aarti Maldonado MD 02/13/2025 Telephone [facility] [address], [facility] [place] [place] [address] Aarti Maldonado MD 01/15/2025 Telephone [facility] [address], [address] [place] [address], [place] [address] Aarti Maldonado MD 01/12/2025 Telephone [facility] [address], 2nd [place] [address] Aarti Maldonado MD 01/10/2025 9:45 AM EDT Office Visit [facility] [address], [address]nd [place] [address] Aarti Maldonado MD Benign prostatic hyperplasia with urinary frequency (Primary Dx); Microhematuria 01/10/2025 Orders Only [facility] [address], [address]nd [place] [address] Aarti Maldonado MD 01/10/2025 Telephone [facility] [address] [facility], 2nd [place] [address] Aarti Maldonado MD 01/10/2025 Travel 01/09/2025 Travel from Last 3 Months Immunizations Immunization Administration Dates Next Due Hep A, Adult 07/30/2018 Influenza, injectable, quadr ivalent, preservative free 08/24/2023,07/28/2022,08/23/2019,07/30 Pneumococcal 20-edinson Conj Vaccine 11/23/2023 Pneumococcal Polysaccharide PPV23 07/25/2018 Family History Medical History Relation Name Comments Cancer Father Braggs Cash Hypertension Mother Tawnya Castrejon Kidney disease Mother Tawnya Castrejon Relation Name Status Comments Father Braggs Cash Mother Tawnya Castrejon Social History Tobacco [...] EDT Appointment [facility] [address] [place] [address] 03/14/2025 2:45 PM EDT [facility] [address] [facility], [address]st [place] [address] 03/19/2025 9:15 AM EDT Hospital Encounter [facility] [address] [place] [address] Aarti Maldonado MD [address] [address] 03/19/2025 9:15 AM EDT - 03/19/2025 11:30 AM EDT Surgery [facility] [address] [place] [address] Aarti Maldonado MD [address] [address] ENUCLEATION, PROSTATE, TRANSURETHRAL, USING HOLMIUM LASER [04004 (CPT )] 04/18/2025 10:30 AM EDT Office Visit Medical Office Building Urology [address] [facility] [place] [address] Aarti Maldonado MD [address] [place] [address] Scheduled Procedures Name Priority Associated Diagnoses Date/Ti me ENUCLEATION, PROSTATE, TRANSURETHRAL, USING HOLMIUM LASER BPH (benign prostatic hyperplasia) 03/19/2025 9:15 AM EDT Health Maintenance Due Date Last [...] 2023 UKY-Diabetes: Hemoglobin A1C 05/22/2024 11/23/2023, 07/28/2022 [id number] Vaccine ( - 2023- season) 2024 03/07/2021, [...] Procedure discussed: discussed risks, benefits and alternatives Strip Machine Operator present: no Timeout: timeout called immediately prior to procedure Prep: patient was prepped and draped in usual sterile fashion Prep type: Betadine Anesthesia: local anesthesia Procedure Details Cystoscope type: flexible Cystoscopy route: transurethral Cystoscopy location: lac vieux bladder Irrigation used: saline Position: supine Urethra [...] 1.20 mg/dL 01/10/2025 1:[address] [facility] eGFRcr 96.2 mL/min/1.7 3m*2 01/10/2025 1:[address] [facility] Comment:Reported eGFRcr in m L/min/1.73m2 is based the CKD-EPI 2020 equation that does not use a race coefficient. Blood Venous blood specimen / Unknown Venipuncture / Unknown 01/10/2025 11:55 AM EDT 01/10/2025 11:55 AM EDT Aarti Maldonado MD LAB BLOOD ORDERABLES Final R esult [facility] [address] [place] [address] * POC US Bladder Volume (01/10/2025 10:21 AM EDT) Urine, Volume 76 mL IMAGING Anatomical Region Laterality Modality Other Aarti Maldonado MD IMG POINT OF CARE ULTRASOUND Final Result * (ABNORMAL) POCT URINALYSIS DIPSTICK (01/10/2025 10:01 AM EDT) POCT Urine Color Yellow 01/10/2025 10:03 AM EDT [facility] POCT Urine Clarity Clear 01/10/2025 10:03 AM EDT [facility] POCT Urine Glucose >=1000(A) Negative mg/dL 01/10/2025 10:03 AM EDT [facility] POCT Urine Bilirubin Negative Negative mg/dL 01/10/2025 10:03 AM EDT [facility] POCT Urine Ketones Negative Negative mg/dL 01/10/2025 10:03 AM EDT [facility] POCT Urine Specific [place] 1.020 1.005 - 1.030 01/10/2025 10:03 AM EDT [facility] POCT Urine Blood Negative Negative 01/10/2025 10:03 AM EDT [facility] POCT pH, Urine 5.5 5.0 - 8.0 01/10/2025 10:03 AM EDT [facility] POCT Protein, Urine Negative Negative mg/dL 01/10/2025 10:03 AM EDT [facility] POCT Urobilinogen, Urine 0.2 0.2, 1.0 EU/dL 01/10/2025 10:03 AM EDT [facility] POCT Nitrite, Urine Negative Negative 01/10/2025 10:03 AM EDT [facility] POCT Urine Leukocyte Esterase Negative Negative 01/10/2025 10:03 AM EDT [facility] Urine 01/10/2025 10:0 1 AM EDT 01/10/2025 10:03 AM EDT us Aarti Maldonado MD LAB POINT OF CARE TE ST DOCKED DEVICE UNSOLICITED RESULTS Final Result [facility] [address], [place] from Last 3 Months Additional Health Concerns Active Problems Noted Date Diagnosed Date Autogenerated Problem 02/13/2025 Insurance [employer] MEDICARE Care Teams Transplant Nurse Relationship Specialty Start Date End Date Ryne Bergman MD [address] [place] [address] PCP - General 04/21/24 Abiola Loyola, SLAB DEPILER OPERATOR [address] [place] [address] Nurse Practitioner Urology 10/30/24 Aarti Maldonado MD [address] [place] [address] Surgeon Urology 01/10/25
--- OUTSIDE RECORDS SUMMARY | 2025-03-11 00:38 | XMS_ITS | Encounter Summary ---
Author Organization [facility] Address [address] [place] [address] Care Team Providers Care Trial Justice Name Role Phone Ryne Bergman MD Primary Care Provider [phone] Abiola Loyola RESOURCE AGENT Unavailable [phone] Aarti Maldonado MD Unavailable Encounter Details Date [...] EDT Appointment [facility] [address] [place] [address] 03/14/2025 2:45 PM EDT Pre-[facility]mission Testing [facility] [address], [address] [place] [address] 03/19/2025 9:15 AM EDT Hospital Encounter [facility] [address] [place] [address] Aarti Maldonado MD [address] [place] [address] 03/19/2025 9:15 AM EDT - 03/19/2025 11:30 AM EDT Surgery [facility] [address] [place] [address] Aarti Maldonado MD [address] [place] [address] ENUCLEATION, PROSTATE, TRANSURETHRAL, USING HOLMIUM LASER [17203 (CPT )] 04/18/2025 10:30 AM EDT Office Visit Medical Office Building Urology [address] [facility], [address] [place] [address] Aarti Maldonado MD [address] [address] Scheduled Procedures Name Priority Associated [...] documented as of this encounter Care Teams Trial Justice Relationship Specialty Start Date End Date Ryne Bergman MD [address] [place] [address] PCP - General 04/21/24 Abiola Loyola APRN [address] [address] Nurse Practitioner Urology 10/30/24 Aarti Maldonado MD [address] [address] Surgeon Urology 01/10/25 documented as of this encounter
--- OUTSIDE RECORDS SUMMARY | 2025-03-11 00:38 | XMS_ITS | Encounter Summary ---
Author Organization [facility] Address [address] [place] [address] Care Team Providers Care Taxi Cab Driver Name Role Phone Ryne Bergman MD Primary Care Provider Abiola Loyola LOAN ORIGINATOR Unavailable [phone] Aarti Maldonado MD Unavailable [phone] Encounter Details Date Type Department Care Team (Late st Contact Info) Description 02/13/2025 Telephone [place] [facility] [address], 2[address] [place] [address] Aarit Maldonado MD [address] [facility] [address] [place] [address] Social History Tobacco Use Types [...] patient, notified him surgery location changed to [facility] on 03/19 documented in this encounter Plan of Treatment Upcoming Encounters Date Type Department Care Team (Latest Contact Info) Description 03/12/2025 7:50 AM EDT Appointment [facility] Radiology [address] [place] [address] 03/14/2025 2:45 PM EDT Pre-Admission Testing [place] [facility] [address] [facility] [address] [place] [address] 03/19/2025 9:15 AM EDT Hospital Encounter [facility] OPERATING ROOM [address] [place] [address] Aarti Maldonado MD [address] [address] 03/19/2025 9:15 AM EDT - 03/19/2025 11:30 AM EDT Surgery [facility] OPERATING ROOM [address] [place] [address] Aarti Maldonado MD [address] [phone] ENUCLEATION, PROSTATE, TRANSURETHRAL, USING HOLMIUM LASER [[id number] (CPT )] 04/18/2025 10:30 AM EDT Office Visit Medical Office Building Urology [address] [facility], [address] [place] [address] Aarti Maldonado MD [address] [place] [address] Scheduled Procedures Name Priority Associated Diagnoses [...] documented as of this encounter Care Teams Taxi Cab Driver Relationship Specialty Start Date End Date Ryne Bergman MD [address] [place] [address] PCP - General 04/21/24 Abiola Loyola, LUCHO [address] [address] Nurse Practitioner Urology 10/30/24 Aarti Maldonado MD [address] [place] [address] Surgeon Urology 01/10/25 documented as of this encounter
--- OUTSIDE RECORDS SUMMARY | 2025-03-11 00:38 | XMS_ITS | Encounter Summary ---
Author Organization [facility] Address [address] [place] [address] Care Team Providers Care Pilot Instructor Name Role Phone Ryne Bergman MD Primary Care Provider [phone] Abiola Loyola PLASTIC MAKER Unavailable [phone] Aarti Maldonado MD Unavailable [phone] Encounter Details Date Type Department Care Team (Late st Contact Info) Description 03/08/2025 Orders Only [facility] [address], 2nd [place] [address] Aarti Maldonado MD [address] [place] [address] Microhematuria (Primary Dx) Social History [...] EDT Appointment [facility] Radiology [address] [place] [address] 03/14/2025 2:45 PM EDT [facility] Testing [place] [facility] [address], 1[address] [place] [address] 03/19/2025 9:15 AM EDT Hospital Encounter [facility] OPERATING ROOM [address] [place] [address] Aarti Maldonado MD [address] [address] 03/19/2025 9:15 AM EDT - 03/19/2025 11:30 AM EDT Surgery [facility] OPERATING ROOM [address] [place] [address] Aarti Maldonado MD [address] [address] ENUCLEATION, PROSTATE, TRANSURETHRAL, USING HOLMIUM LASER [[id number] (CPT )] 04/18/2025 10:30 AM EDT Office Visit Medical Office Building Urology [facility] [address] [facility], [address] [place] [address] Aarti Maldonado MD [address] [address] Scheduled Orders Name Type [...] documented as of this encounter Care Teams Pilot Instructor Relationship Specialty Start Date End Date Ryne Bergman MD [address] [place] [address] PCP - General 04/21/24 Abiola Loyola APRN [address] [place] [address] Nurse Practitioner Urology 10/30/24 Aarti Maldonado MD [address] [place] [address] Surgeon Urology 01/10/25 documented as of this encounter
--- OUTSIDE RECORDS SUMMARY | 2025-03-11 00:38 | XMS_ITS | Encounter Summary ---
Author Organization [facility] Address [address] [place] [address] Care Team Providers Care Squeegee Finisher Name Role Phone Ryne Bergman MD Primary Care Provider [phone] Abiola Loyola WREATH MACHINE OPERATOR Unavailable [phone] Aarti Maldonado MD Unavailable [phone] Encounter Details Date Type Department Care Team (Late st Contact Info) Description 03/09/2025 Orders Only [facility] [address], 2nd [place] [address] Aarti Maldonado MD [address] [place] [address] Social History Tobacco Use Types [...] EDT Appointment [facility] Radiology [address] [place] [address] 03/14/2025 2:45 PM EDT Pre-Admission Testing [place] [facility] [address] [facility], 1st [place] [address] 03/19/2025 9:15 AM EDT Hospital Encounter [facility] OPERATING ROOM [address] [place] [address] Aarti Maldonado MD [address] [address] 03/19/2025 9:15 AM EDT - 03/19/2025 11:30 AM EDT Surgery [facility] OPERATING ROOM [address] [place] [address] Aarti Maldonado MD [address] [address] ENUCLEATION, PROSTATE, TRANSURETHRAL, USING HOLMIUM LASER [[id number] (CPT )] 04/18/2025 10:30 AM EDT Office Visit Medical Office Building Urology [address] [facility], [address] [place] [address] Aarti Maldonado MD [address] [address] Scheduled Procedures Name Priority Associated Diagnoses Date/Ti [...] documented as of this encounter Care Teams Squeegee Finisher Relationship Specialty Start Date End Date Ryne Bergman MD [address] [place] [address] PCP - General 04/21/24 Abiola Loyola APRN [address] [facility] [place] [address] Nurse Practitioner Urology 10/30/24 Aarti Maldonado MD [address] [place] [address] Surgeon Urology 01/10/25 documented as of this encounter
--- OUTSIDE RECORDS SUMMARY | 2025-03-11 00:38 | XMS_ITS | Encounter Summary ---
Author Organization [facility] Address [address] [place] [address] Care Team Providers Care Head Of Ethics And Compliance Name Role Phone Ryne Bergman MD Primary Care Provider Abiola Loyola INFORMATION RESOURCES MANAGER Unavailable [phone] Aarti Maldonado MD Unavailable [phone] Encounter Details Date Type Department Care Team (Late st Contact Info) Description 01/15/2025 Telephone [place] [facility] [address], 2nd [place] [address] Aarti Maldonado MD [address] [place] [address] Social History Tobacco Use Types [...] and spoke with Cara the pharmacist at [facility] and let her know that it was only 1Valium for him to take prior to the MRI documented in this encounter Plan of Treatment Upcoming Encounters Date Type Department Care Team (Latest Contact Info) Description 03/12/2025 7:50 AM EDT Appointment [facility] Radiology [address] [place] [address] 03/14/2025 2:45 PM EDT Pre-Admission Testing [place] [facility] [address] [facility], 1st [place] [address] 03/19/2025 9:15 AM EDT Hospital Encounter [facility] A OPERATING ROOM [address] [place] [address] Aarti Maldonado MD [address] [address] 03/19/2025 9:15 AM EDT - 03/19/2025 11:30 AM EDT Surgery [facility] A OPERATING ROOM [address] [place] [address] Aarti Maldonado MD [address] [address] ENUCLEATION, PROSTATE, TRANSURETHRAL, USING HOLMIUM LASER [[id number] (CPT )] 04/18/2025 10:30 AM EDT Office Visit Medical Office Building Urology [address] [facility], [address] [place] [address] Aarti Maldonado MD [address] [address] Scheduled Procedures Name Priority Associated Diagnoses Date/Ti [...] documented as of this encounter Care Teams Head Of Ethics And Compliance Relationship Specialty Start Date End Date Ryne Bergman MD [address] [place] [address] PCP - General 04/21/24 Abiola Loyola APRN [address] [place] [address] Nurse Practitioner Urology 10/30/24 Aarti Maldonado MD [address] [place] [address] Surgeon Urology 01/10/25 documented as of this encounter
--- OUTSIDE RECORDS SUMMARY | 2025-03-11 00:38 | XMS_ITS | Encounter Summary ---
Author Organization [facility] Address [address] [place] [address] Care Team Providers Care Coastal And Estuary Specialist Name Role Phone Ryne Bergman MD Primary Care Provider Abiola Loyola TELEVISION NEWS VIDEO EDITOR Unavailable [phone] Aarti Maldonado MD Unavailable [phone] Encounter Details Date Type Department Care Team (Late st Contact Info) Description 02/13/2025 Telephone [place] [facility] U[facility] [address], 2nd [place] [address] Aarti Maldonado MD [address] [facility] [address] [place] [address] Social History Tobacco Use Types [...] EDT Appointment [facility] Radiology [address] [place] [address] 03/14/2025 2:45 PM EDT Pre-Admission Testing [place] [facility] [address] [facility], 1st [place] [address] 03/19/2025 9:15 AM EDT Hospital Encounter [facility] A OPERATING ROOM [address] [place] [address] Aarti Maldonado MD [address] [address] 03/19/2025 9:15 AM EDT - 03/19/2025 11:30 AM EDT Surgery [facility] A OPERATING ROOM [address] [place] [address] Aarti Maldonado MD [address] [address] ENUCLEATION, PROSTATE, TRANSURETHRAL, USING HOLMIUM LASER [[id number] (CPT )] 04/18/2025 10:30 AM EDT Office Visit Medical Office Building Urology [address] [facility], [address] [place] [address] Aarti Maldonado MD [address] [address] Scheduled Procedures Name Priority Associated Diagnoses Date/Ti [...] documented as of this encounter Care Teams Coastal And Estuary Specialist Relationship Specialty Start Date End Date Ryne Bergman MD [address] [place] [address] PCP - General 04/21/24 Abiola Loyola, TELEVISION NEWS VIDEO EDITOR [address] [facility] [facility] [place] [address] Nurse Practitioner Urology 10/30/24 Aarti Maldonado MD [address] [place] [address] Surgeon Urology 01/10/25 documented as of this encounter
--- OUTSIDE RECORDS SUMMARY | 2025-03-11 00:38 | XMS_ITS | Encounter Summary ---
Author Organization [facility] Address [address] [place] [address] Care Team Providers Care Bag Cutter Name Role Phone Ryne Bergman MD Primary Care Provider [phone] Abiola Loyoal CARDIOVASCULAR OR NURSE Unavailable [phone] Aarti Maldonado MD Unavailable [phone] Reason for Visit * Reason Onset Date Comments 03/05/25 Urine culture results from [facility] 03/08/2025 Encounter Details Date Type Department Care Team (Late st Contact Info) Description 03/08/2025 Telephone [place] [facility] Urology [address], 2nd [place] [address] Aarti Maldonado MD [address] [place] [address] 03/05/25 Urine culture results from [facility] Social History Tobacco Use Types Packs/Day [...] AM EDT 03/05/25 Urine culture results from [facility] and have been uploaded to media. Thank you. documented in this encounter Plan of Treatment Upcoming Encounters Date Type Department Care Team (Latest Contact Info) Description 03/12/2025 7:50 AM EDT Appointment [facility] Radiology [address] [place] [address] 03/14/2025 2:45 PM EDT Pre-Admission Testing [place] [facility] Pre-op [facility] [address], 1st [place] [address] 03/19/2025 9:15 AM EDT Hospital Encounter [facility] A OPERATING ROOM [address] [place] [address] Aarti Maldonado MD [address] [place] [address] 03/19/2025 9:15 AM EDT - 03/19/2025 11:30 AM EDT Surgery [facility] A OPERATING ROOM [address] [place] [address] Aarti Maldonado MD [address] [place] [address] ENUCLEATION, PROSTATE, TRANSURETHRAL, USING HOLMIUM LASER [[id number] (CPT )] 04/18/2025 10:30 AM EDT Office Visit Medical Office Building Urology [address] [place] [address], [address] [place] [address] Aarti Maldonado MD [address] [place] [address] Scheduled Procedures Name Priority Associated [...] documented as of this encounter Care Teams Bag Cutter Relationship Specialty Start Date End Date Ryne Bergman MD [address] [place] [address] PCP - General 04/21/24 Abiola Loyola APRN [address] [address] Nurse Practitioner Urology 10/30/24 Aarti Maldonado MD [address] [place] [address] Surgeon Urology 01/10/25 documented as of this encounter
--- OUTSIDE RECORDS SUMMARY | 2025-03-11 00:38 | XMS_ITS | Encounter Summary ---
Author Organization [facility] Address [address] [place] [address] Care Team Providers Care Community Product Specialist Name Role Phone Ryne Bergman MD Primary Care Provider [phone] Abiola Loyola RESTAURANT SUPERVISOR Unavailable [phone] Aarti Maldonado MD Unavailable [phone] Encounter Details Date Type Department Care Team (Late st Contact Info) Description 10/30/2019 Orders Only External Location [address] [place] [address] Provider, External Social History Tobacco [...] EDT Appointment [facility] Radiology [address] [place] [address] 03/14/2025 2:45 PM EDT Pre-Admission Testing [place] [facility] [address], 1st [place] [address] 03/19/2025 9:15 AM EDT Hospital Encounter PAV A OPERATING ROOM [address] [place] [address] Aarti Maldonado MD [address] [place] [address] 03/19/2025 9:15 AM EDT - 03/19/2025 11:30 AM EDT Surgery PAV A OPERATING ROOM [address] [place] [address] Aarti Maldonado MD [address] [place] [address] ENUCLEATION, PROSTATE, TRANSURETHRAL, USING HOLMIUM LASER [[id number] (CPT )] 04/18/2025 10:30 AM EDT Office Visit Medical Office Building Urology [address] [facility], [address] [place] [address] Aarti Maldonado MD [address] [address] Scheduled Procedures Name Priority Associated [...] on filedocumented in this encounter Care Teams Community Product Specialist Relationship Specialty Start Date End Date Ryne Bergman MD [address] [place] [address] PCP - General 04/21/24 Abiola Loyola APRN [address] [place] [address] Nurse Practitioner Urology 10/30/24 Aarti Maldonado MD [address] [address] Surgeon Urology 01/10/25 documented as of this encounter
--- OUTSIDE RECORDS SUMMARY | 2025-03-11 00:38 | XMS_ITS | Encounter Summary ---
Author Organization [facility] Address [address] [place] [address] Care Team Providers Care Customer Sales Advisor Name Role Phone Ryne Bergman MD Primary Care Provider Abiola Loyola HAND TOOL LAPPER Unavailable [phone] Aarti Maldonado MD Unavailable [phone] Encounter Details Date Type Department Care Team (Late st Contact Info) Description 01/10/2025 Telephone [place] [facility] U[facility] [address], 2nd [place] [address] Aarti Maldonado MD [address] [place] [address] Social History Tobacco Use Types [...] EDT Appointment [facility] A Radiology [address] [place] [address] 03/14/2025 2:45 PM EDT Pre-Admission Testing [facility] Pre-op Clinic [address], 1st [place] [address] 03/19/2025 9:15 AM EDT Hospital Encounter PAV A OPERATING ROOM [address] [place] [address] Aarti Maldonado MD [address] [address] 03/19/2025 9:15 AM EDT - 03/19/2025 11:30 AM EDT Surgery PAV A OPERATING ROOM [address] [place] [address] Aarti Maldonado MD [address] [address] ENUCLEATION, PROSTATE, TRANSURETHRAL, USING HOLMIUM LASER [[id number] (CPT )] 04/18/2025 10:30 AM EDT Office Visit Medical Office Building Urology [address] [place] [address], [address] [place] [address] Aarti Maldonado MD [address] [address] Scheduled Procedures Name Priority Associated Diagnoses Date/Ti [...] documented as of this encounter Care Teams Customer Sales Advisor Relationship Specialty Start Date End Date Ryne Bergman MD [address] [place] [address] PCP - General 04/21/24 Abiola Loyola, LUCHO [address] [address] Nurse Practitioner Urology 10/30/24 Aarti Maldonado MD [address] [address] Surgeon Urology 01/10/25 documented as of this encounter
--- OUTSIDE RECORDS SUMMARY | 2025-03-11 00:38 | XMS_ITS | Encounter Summary ---
Author Organization [facility] Address [address] [place] [address] Care Team Providers Care Police Reserves Commander Name Role Phone Ryne Bergman MD Primary Care Provider Abiola Loyola KINESIOLOGIST Unavailable [phone] Aarti Maldonado MD Unavailable [phone] Encounter Details Date Type Department Care Team (Late st Contact Info) Description 01/10/2025 Orders Only [place] [facility] Urology [address], 2nd [place] [address] Aarti Maldonado MD [address] [place] [address] Social History Tobacco Use Types [...] EDT Appointment [facility] Radiology [address] [place] [address] 03/14/2025 2:45 PM EDT Pre-Admission Testing [place] [facility] Pre[facility] [address], [address] [place] [address] 03/19/2025 9:15 AM EDT Hospital Encounter PAV A OPERATING ROOM [address] [place] [address] Aarti Maldonado MD [address] [place] [address] 03/19/2025 9:15 AM EDT - 03/19/2025 11:30 AM EDT Surgery PAV A OPERATING ROOM [address] [place] [address] Aarti Maldonado MD [address] [address] ENUCLEATION, PROSTATE, TRANSURETHRAL, USING HOLMIUM LASER [[id number] (CPT )] 04/18/2025 10:30 AM EDT Office Visit Medical Office Building Urology [address] [facility], [address] [place] [address] Aarti Maldonado MD [address] [address] Scheduled Procedures Name Priority Associated [...] documented as of this encounter Care Teams Police Reserves Commander Relationship Specialty Start Date End Date Ryne Bergman MD [address] [place] [address] PCP - General 04/21/24 Abiola Loyola APRN [address] [address] Nurse Practitioner Urology 10/30/24 Aarti Maldonado MD [address] [place] [address] Surgeon Urology 01/10/25 documented as of this encounter
--- OUTSIDE RECORDS SUMMARY | 2025-03-11 00:38 | XMS_ITS | Encounter Summary ---
Author Organization [facility] Address [address] [place] [address] Care Team Providers Care Aircraft Mechanic Armament Name Role Phone Ryne Bergman MD Primary Care Provider Abiola Loyola MULTI PURPOSE MACHINE OPERATOR Unavailable [phone] Aarti Maldonado MD Unavailable Reason for Visit * Reason Onset Date Comments [facility] Clinical Concern/Question 03/09/2025 Encounter Details Date Type Department Care Team (Late st Contact Info) Description 03/09/2025 Telephone [place] [facility] Urology [address], 2nd [place] [address] Aarti Maldonado MD [address] [place] [address] HCN Clinical Concern/Question Social History [...] optimal time of day to reach caller: [phone] Note: Please do not reply to this message. Follow-up communication and further actions as a result of this message need to be communicated with the patient directly, if the patient is not active onMyChart. If the patient is active on MyChart, they will receive notification of the communication/outcome via [employer]. documented in this encounter Plan of Treatment Upcoming Encounters Date Type Department Care Team (Latest Contact Info) Description 03/12/2025 7:50 AM EDT Appointment [facility] Radiology [address] [place] [address] 03/14/2025 2:45 PM EDT Pre-Admission Testing [place] [facility] Pre-op [facility] [address], 1st [place] [address] 03/19/2025 9:15 AM EDT Hospital Encounter PAV A OPERATING ROOM [address] [place] [address] Aarti Maldonado MD [address] [place] [address] 03/19/2025 9:15 AM EDT - 03/19/2025 11:30 AM EDT Surgery PAV A OPERATING ROOM [address] [place] [address] Aarti Maldonado MD [address] [facility]00 [place] [address] ENUCLEATION, PROSTATE, TRANSURETHRAL, USING HOLMIUM LASER [[id number] (CPT )] 04/18/2025 10:30 AM EDT Office Visit Medical Office Building Urology [address] [facility], [address] [place] [address] Aarti Maldonado MD [address] [facility]00 [place] [address] Scheduled Procedures Name Priority Associated [...] documented as of this encounter Care Teams Aircraft Mechanic Armament Relationship Specialty Start Date End Date Ryne Bergman MD [address] [place] [address] PCP - General 04/21/24 Abiloa Loyola APRN [address] [address] Nurse Practitioner Urology 10/30/24 Aarti Maldonado MD [address] [address] Surgeon Urology 01/10/25 documented as of this encounter
--- OUTSIDE RECORDS SUMMARY | 2025-03-11 00:38 | XMS_ITS | Encounter Summary ---
Author Organization [facility] Address [address] [place] [address] Care Team Providers Care Sap Senior Developer Name Role Phone Ryne Bergman MD Primary Care Provider Abiola Loyola QUALITY TECH Unavailable [phone] Aarti Maldonado MD Unavailable [phone] Encounter Details Date Type Department Care Team (Late st Contact Info) Description 02/10/2024 Orders Only External Location [address] [place] [address] Nicole Bernstein, DO [address] [place] [address] Social History Tobacco Use Types [...] EDT Appointment [facility] A Radiology [address] [place] [address] 03/14/2025 2:45 PM EDT Pre-Admission Testing [place] [facility] Pre-op [facility] [address], 1[address] [place] [address] 03/19/2025 9:15 AM EDT Hospital Encounter PAV A OPERATING ROOM [address] [place] [address] Aarti Maldonado MD [address] [place] [address] 03/19/2025 9:15 AM EDT - 03/19/2025 11:30 AM EDT Surgery PAV A OPERATING ROOM [address] [place] [address] Aarti Maldonado MD [address] [place] [address] ENUCLEATION, PROSTATE, TRANSURETHRAL, USING HOLMIUM LASER [[id number] (CPT )] 04/18/2025 10:30 AM EDT Office Visit Medical Office Building Urology [address] [facility], [address] [place] [address] Aarti Maldonado MD [address] [address] Scheduled Procedures Name Priority Associated [...] on filedocumented in this encounter Care Teams Sap Senior Developer Relationship Specialty Start Date End Date Ryne Bergman MD [address] [place] [address] PCP - General 04/21/24 Abiola Loyola APRN [address] [place] [address] Nurse Practitioner Urology 10/30/24 Aarti Maldonado MD [address] [place] [address] Surgeon Urology 01/10/25 documented as of this encounter
--- OUTSIDE RECORDS SUMMARY | 2025-03-11 00:38 | XMS_ITS | Encounter Summary ---
Author Organization [facility] Address [address] [place] [address] Care Team Providers Care Consulting Utility Forester Name Role Phone Ryne Bergman MD Primary Care Provider [phone] Abiola Loyola PROCESS ENG Unavailable [phone] Aarti Maldonado MD Unavailable [phone] Encounter Details Date Type Department Care Team (Late st Contact Info) Description 01/12/2025 Telephone [facility] [address], [address] [place] [address] Aarti Maldonado MD [address] [place] [address] Social History Tobacco Use Types [...] 2 weeks prior to surgery at [facility] - urine culture order mailed to patient alone with surgery directions - patient is aware of this plan documented in this encounter Plan of Treatment Upcoming Encounters Date Type Department Care Team (Latest Contact Info) Description 03/12/2025 7:50 AM EDT Appointment [facility] Radiology [address] [place] [address] 03/14/2025 2:45 PM EDT Pre-Admission Testing [facility] [address], 1[address] [place] [address] 03/19/2025 9:15 AM EDT Hospital Encounter [facility]ATING ROOM [address] [place] [address] Aarti Maldonado MD [address] [address] 03/19/2025 9:15 AM EDT - 03/19/2025 11:30 AM EDT Surgery [facility] [address] [place] [address] Aarti Maldonado MD [address] [place] [address] ENUCLEATION, PROSTATE, TRANSURETHRAL, USING HOLMIUM LASER [[id number] (CPT )] 04/18/2025 10:30 AM EDT Office Visit Medical Office Building Urology [facility], [address] [place] [address] Aarti Maldonado MD [address] [place] [address] Scheduled Procedures Name Priority Associated Diagnoses Date/Ti [...] documented as of this encounter Care Teams Consulting Utility Forester Relationship Specialty Start Date End Date Ryne Bergman MD [address] [place] [address] PCP - General 04/21/24 Abiola Loyola APRN [address] [place] [address] Nurse Practitioner Urology 10/30/24 Aarti Maldonado MD [address] [place] [address] Surgeon Urology 01/10/25 documented as of this encounter
[2025-03-11] MEDS: IOPAMIDOL-370 (76%);100ML BOTTLE 80 ML IV (00:39)
[2025-03-11] MEDS: SODIUM CHLORIDE 0.9% 10ML SYR (RAD ONLY) 10 ML IV (00:39)
[2025-03-11] MEDS: 0.9 % SODIUM CHLORIDE 50 ML VIAL 40 ML IV (00:39)
--- NOTE | 2025-03-11 01:49 | PC.NURSE ---
Bladder scan was administered on pt, pt was it 225ml
[2025-03-11] MEDS: ENOXAPARIN 120MG/0.8ML SYRINGE 105 MG SUBCUT (01:50)
--- NOTE | 2025-03-11 02:35 | P.HP_ITS ---
<Statement entered by Shaun Lemus MD - 03/13/25 12:31> Personally evaluated the patient and agree with plan of care as outlined by the CLINICAL MANAGER. History of Present Illness *Admission Date: 03/11/25 *Reason for visit:: New onset chest pain, dizziness lightheadedness no strength *History of present illness: Mr. Castrejon has a very interesting history here. He comes in today sleepy, having to hold onto his to walk-in., And having chest pain. On my initi al exam he did wake up was talking to me and fell asleep while talking to me. Was able to wake him up he then became more alert sat him up. Vital signs were normal O2 sats were normal., He became more alert and oriented during our conversation. Went over recent changes, and he noted that he and his were both with bronchitis approximately a week week and a half ago the had to seek care, he did not receive any medicines from it feels that he is over it. He then saw his doctor in January and had his nifedipine increased from 60 to 90- day. Also had spirolactone added. He has noted for a long history of neck back and hip pain. He went to the pain clinic was evaluated and he was placed on methocarbamol 3 times a day. Per the note a 2-week prescription was given. He also has an enlarged prostate and is planning on surgery at the [facility]. He states that he is able to empty his bladder. Did do a bladder scan in the emergency room and was only 225 cc, before voiding. Patient also noted he started smoking a year ago only 4 to 5 cigarettes a day after both of his parents he had smoked approximately 20 years ago but had stopped. He also noted he had a cardiac cath more than 10 years ago that was normal in [place], also a colonoscopy with some polyps in 2019. He is on multiple diabetic medications. Presently describes his chest discomfort as a pressure, that does not increase with palpation of the chest wall. Agree with the ER physician to have him evaluated overnight serial troponins, cardiology was called and is aware of the patient.. Also noting will do orthostatic blood pressures that the patient had 1 blood pressure medicine increased and a diuretic added. Then was placed on methocarbamol 3 times a day also has a side effect of causing dizziness lightheadedness and hypotension [facility] Disclaimer: The information contained in this section may have been updated after the patient was seen, as this information can be updated by other users. Medical History (Updated 03/11/25 @ 02:56 by Chino Baeza APRN) Chronic neck and back pain TIA (transient ischemic attack) Urinary tract infection Anxiety and depression Hyperlipidemia Hypertension H/O carpal tunnel syndrome Diabetes mellitus, type 2 Sleep apnea History of chest pain Surgical History H/O discectomy History of cholecystectomy Family History Other Bone cancer Kidney failure Lung cancer Social History (Updated 03/11/25 @ 02:41 by Chino Baeza APRN) Smoking Status: Current every day smoker tobacco type: cigarettes smoking status start date: 2023 quit status: has quit before alcohol intake: never substance use type: denies use current occupational status: other Travel in the last 8 weeks?: None household members: spouse housing: house current occupational exposures/hazards: No caffeine: Yes Other Medical History Have you received the Flu Vaccine for this season: No Have you received the Pneumonia Vaccine: Yes Review of Systems Review of Systems Review of systems:: pertinent systems reviewed and negative unless documented below Constitutional Constitutional: Reports as per HPI, Reports body ache(s), Reports lethargy and Reports weakness Eyes Eyes: Reports as per HPI Comments: Denies any changes in vision ENT Ears, Nose, Mouth, and Throat: Reports as per HPI, Reports disequilibrium, Reports dizziness and Reports vertigo *Cardiovascular Cardiovascular: Reports as per HPI, Reports chest pain (Discomfort mid sternum) and Reports slow heart rate *Respiratory Respiratory: Reports as per HPI Comments: He denies respiratory issues *Gastrointestinal Gastrointestinal: Reports abdominal pain Comments: Has generalized anterior pelvic pain to palpation he says, denies any nausea or vomiting *Genitourinary Genitourinary: Reports difficulty urinating Comments: Patient noted with a moderately enlarged prostate is being followed up by as planning for surgery *Musculoskeletal Musculoskeletal: Reports myalgias Integumentary/Breasts Skin/Breast: Reports as per HPI *Neurologic Neurologic: Reports as per HPI, Reports disequilibrium, Reports dizziness, Reports vertigo and Reports weakness Comments: Very lightheaded at times Endocrine Endocrine: Reports as per HPI Hematologic/Lymphatic Hematologic/Lymphatic: Reports as per HPI Allergic/Immunologic Allergic/Immunologic: Reports as per HPI Meds Home Medications and Allergies Home Medications ?Medication ?Instructions ?Recorded ?Confirmed ?Type topiramate 25 mg tablet (Topamax) 25 mg PO QDAY STILES 06/1403/05/25 History metformin 850 mg tablet 750 mg PO DAILY Diabetes 01/1503/05/25 History fluoxetine 60 mg tablet 60 mg PO DAILY 03/17/2406/21 History insulin lispro protamine-lispro 30 unit SQ DAILY 03/1703/05/25 History 100 unit/mL (75-25) subcutaneous pen pioglitazone 45 mg tablet (Actos) 45 mg PO DAILY 03/1703/05/25 History potassium chloride 20 mEq 20 meq PO DAILY 03/17/2406/21 History tablet,extended release albuterol sulfate 90 mcg/actuation 1 inh inhalation Q6 H #6.7 grams 04/19/24 03/05/25 Rx aerosol inhaler finasteride 5 mg tablet (Proscar) 5 mg PO DAILY #90 ta bs 11/20/24 03/05/25 Rx aspirin 81 mg capsule 81 mg PO DAILY #30 caps 12/2603/05/25 Rx blood sugar diagnostic (OneTouch #10 ea 01/25/2503/05 History Verio test strips) blood-glucose sensor (FreeStyle #1 ea 01/25/25 5 History Yuliya 3 Plus Sensor device) empagliflozin 10 mg tablet 10 mg PO DAILY 01/25/2506/21 History (Jardiance) pen needle, diabetic 32 gauge x #1,200 ea 01/25/2506/21 History pramipexole 1 mg tablet 1 mg PO DAILY 01/25/2503/05 History rosuvastatin 20 mg tablet 20 mg PO DAILY 01/25/2506/21 History tamsulosin 0.4 mg capsule 0.4 mg PO DIRECTED 03/05/25 History valsartan 320 mg tablet 320 mg PO DAILY 01/25/2506/21 History lruxyajy-fxwmuwswf-rfqpzktg 3.5 1 drp Eye-Both ONCE 03/05/25 History mg/mL-10,000 unit/mL-0.1% eye drops nifedipine 90 mg tablet,extended 90 mg PO DAILY #30 ta bs 02/14/25 03/05/25 Rx release spironolactone 25 mg tablet 25 mg PO DAILY #30 tabs 03/05/25 Rx (Aldactone) methocarbamol 500 mg tablet 500 mg PO TID #42 tabs 06/21 Rx New Prescriptions to Start Prescriptions: Allergies Allergy/AdvReac Type Severity Reaction Status Date / Time oxybutynin Allergy Severe angioedema Verified 02/27/25 10:29 morphine (MORPHINE) Allergy Unknown Verified 02/27/25 10:29 Exam Data for Last 24 hours Vital signs and Labs for Last 24 Hours: Temp Pulse Resp BP Pulse Ox O2 Del Method 97.7 F 55 L 14 109/66 L 99 Room Air 03/10/25 23:43 03/11/25 02:00 03/11/25 02:00 03/11/25 02:00 03/11/25 02:00 03/10/25 23:43 Laboratory Results - last 24 hr 03/10/25 23:22: WBC 12.5 H, RBC 4.29 L, Hgb 12.8 L, Hct 39.8 L, MCV 92.8, MCH 29.8, MCHC 32.2, RDW 13.2, Plt Count 246, MPV 9.6, Neut % (Auto) 55.9, Lymph % (Auto) 32.2, Lynn % (Auto) 8.8, Eos % (Auto) 2.2, Baso % (Auto) 0.6, Neut # (Auto) 7.0, Lymph # (Auto) 4.0, Lynn # (Auto) 1.1 H, Eos # (Auto) 0.3, Baso # (Auto) 0.1, PT 10.5, INR 0.94, D-Dimer 0.31, Sodium 138, Potassium 3.8, Chloride 107, Carbon Dioxide 24, Anion Gap 10.8, BUN 26 H, Creatinine 1.20, Estimated Creat Clear 89, Estimated GFR 61, Est GFR ( Amer) 73, Glucose 157 H, Calcium 10.7 H, Total Bilirubin 0.6, AST 31, ALT 27, Alkaline Phosphatase 75, Troponin I < 0.01, NT-Pro-B Natriuret Pep 71.1, Total Protein 6.8, Albumin 4.3, Globulin 2.5, Albumin/Globulin Ratio 1.7 I & O for Last 24 hours: Intake & Output 03/08/25 03/09/25 03/10/25 03/11/25 05:59 05:59 05:59 05:59 Weight 230 lb Radiology Reports for the Last 24 Hours: Moderately enlarged prostate, rest basically benign some calcium deposits Constitutional Constitutional: mild distress, morbidly obese, cooperative, somnolent and obtunded Comments: Overweight male with large abdomen. He was sleeping when I first came into the room it took a while for him to wake up actually fell asleep while he was talking to me. Then was able to awaken him and he slowly was able to become fully alert and oriented *Routine HEENT Exam Head: Present normocephalic and atraumatic Eye: Present EOMI, PERRL and normal accommodation ENT: Present mucous membranes moist, oropharynx clear and nares patent Comments: No signs of sinus infection *Routine Neck Exam Neck: Present supple and full ROM Comments: Generalized chronic neck tenderness but nothing new, *Routine Respiratory Exam Respiratory: Present CTA bilaterally, normal respiratory effort, able to speak in complete sentences and symmetric chest movement Comments: Respiratory exam was totally normal moving air well equal expansion bilaterally *Routine Cardiovascular Exam Cardiovascular: Present RRR, Normal S1 and Normal S2 Comments: Patient was normal sinus on the monitor in the ER bay. Showing good circulation and brisk capillary refill to all distal extremities, *Routine Abdominal Exam Abdominal: Present soft, normoactive bowel sounds, tenderness, firm and obese Comments: Abdomen just slightly tender to palpation but on pressing down above the bladder the patient had quite a bit of discomfort., He states that he is able to pee without too much difficulty did bladder scan had 225 cc before urination. *Routine Rectal Exam Rectal:: deferred *Routine Genitalia Exam Genitalia:: deferred *Routine Extremities Exam Extremities: Present full ROM and normal capillary refill Comments: Patient able to move all extremities well with good strength bilaterally good stemmer machine strength Routine Back/Spine/Pelvis Exam Back/Spine: Present full ROM Comments: Did not stand the patient but he was able to sit up on his own on the stretcher. Showing no difficulty and no sign of back pain or CVA tenderness on exam *Routine Skin Exam Skin: Present intact, dry, warm and normal turgor *Routine Neurological Exam Neurological: Present alert, oriented X3, CN II-XII intact, normal reflexes, normal tone, vision grossly intact, hearing grossly intact and normal speech Comments: Patient was somnolent when I first came in the room took him a while to wake up but then there was no signs of any deficit noted he became alert oriented talking well there was no sign of deficit from either side. Able to follow commands good strength good feeling and sensation in all extremities Routine Psychiatric Exam Psychiatric: Present normal affect, normal thought process, cooperative, good insight and good judgment H&P: Result Impressions 1. Chest pain with normal troponin 2. Hypertension with recent medication increase in 1 added 3. Chronic neck back and hip pain had methocarbamol added 4. Somnolent wanting to sleep, Assessment and Plan *Assessment and plan (1) Chest pain: Status: Acute Qualifiers: Chest pain type: unspecified Qualified Code(s): R07.9 - Chest pain, unspecified Category: Medical Code(s): R07.9 - Chest pain, unspecified (2) Dizziness, nonspecific: Status: Acute Category: Medical Code(s): R42 - Dizziness and giddiness (3) Insulin dependent diabetes mellitus: Status: Acute Category: Medical (4) Greater trochanteric bursitis of both hips: Status: Acute Category: Medical Code(s): M70.61 - Trochanteric bursitis, right hip; M70.62 - Trochanteric bursitis, left hip (5) Hypotension: Status: Acute Qualifiers: Hypotension type: unspecified hypotension type Qualified Code(s): I95.9 - Hypotension, unspecified Category: Medical Code(s): I95.9 - Hypotension, unspecified (6) Hypertension: Status: Acute Qualifiers: Hypertension type: primary hypertension Qualified Code(s): I10 - Essential (primary) hypertension Category: Medical Code(s): I10 - Essential (primary) hypertension (7) Obstructive sleep apnea syndrome: Status: Acute Category: Medical Code(s): G47.33 - Obstructive sleep apnea (adult) (pediatric) (8) Chronic neck and back pain: Status: Acute Category: Medical Code(s): M54.2 - Cervicalgia; M54.9 - Dorsalgia, unspecified; G89.29 - Other chronic pain (9) Medication reaction: Status: Acute Qualifiers: Encounter type: initial encounter Qualified Code(s): T50.905A - Adverse effect of unspecified drugs, medicaments and biological substances, initial encounter Category: Medical Code(s): T50.905A - Adverse effect of unspecified drugs, medicaments and biological substances, initial encounter Plan 1. Patient will be admitted to the floor monitored throughout the shift. Will also do orthostatic hypotension checks on admission and once again in the morning. Looking for potential combination of this dizziness lightheadedness because of increase in cardiac meds and having methocarbamol added for chronic pain. 2. Chest pain normal first troponin we will continue serial troponins and monit or the patient. 3. Cardiology consult to evaluate the patient, 4. Also noting that the patient has an appointment at to determine surgery for the enlarged prostate on Wednesday, the patient stated he would love not to miss that appointment.
--- OUTSIDE RECORDS SUMMARY | 2025-03-11 02:56 | XMS_ITS | Clinical Summary ---
Author Organization [facility] Address [address] [place] [address] Care Team Providers Care Fish Worm Grower Name Role Phone Ryne Bergman MD Primary Care Provider [phone] Abiola Loyola APRN Unavailable [phone] Aarti Maldonado MD Unavailable [phone] Allergies Active Allergy Reactions Criticality Noted Date [...] Department Care Team Description 03/09/2025 Orders Only [facility] Urology [address], [facility] [address] Aarti Maldonado MD 03/09/2025 Telephone [facility] [address], [address] [place] [address] Aarti Maldonado MD HCN Clinical Concern/Question 03/08/2025 Orders Only [facility] [address], [address] [place] [address] [place] [address] Aarti Maldonado MD Microhematuria (Primary Dx) 03/08/2025 Telephone [facility] [address], [address] [place] [address], [place] [address] Aarti Maldonado MD 03/05/25 Urine culture results from [facility] 02/13/2025 Telephone [facility] [address], [facility] [place] [address] Aarti Maldonado MD 02/13/2025 Telephone [facility] [address], [facility] [place] [address] Aarti Maldonado MD 01/15/2025 Telephone [facility] [address], [address] [place] [address], [place] [address] Aarti Maldonado MD 01/12/2025 Telephone [facility] [address], [address] [place] [address] Aarti Maldonado MD 01/10/2025 9:45 AM EDT Office Visit [facility] [address], [address] [place] [address] Aarti Maldonado MD Benign prostatic hyperplasia with urinary frequency (Primary Dx); Microhematuria 01/10/2025 Orders Only [facility] [address], [address] [place] [address] Aarti Maldonado MD 01/10/2025 Telephone [facility] [address] [facility], 2nd [place] [address] Aarti Maldonado MD 01/10/2025 Travel 01/09/2025 Travel from Last 3 Months Immunizations Immunization Administration Dates Next Due Hep A, Adult 07/30/2018 Influenza, injectable, quadr ivalent, preservative free 08/24/2023,07/28/2022,08/23/2019,07/30 Pneumococcal 20-edinson Conj Vaccine 11/23/2023 Pneumococcal Polysaccharide PPV23 07/25/2018 Family History Medical History Relation Name Comments Cancer Father [place] Csah Hypertension Mother Tawnya Castrejon Kidney disease Mother Tawnya Castrejon Relation Name Status Comments Father [place] Mother Tawnya Castrejon Social History Tobacco [...] EDT Appointment [facility] [address] [place] [address] 03/14/2025 2:45 PM EDT [facility] Testing [facility] [address] [facility], 1st [place] [address] 03/19/2025 9:15 AM EDT Hospital Encounter [facility] [address] [place] [address] Aarti Maldonado MD [address] [address] 03/19/2025 9:15 AM EDT - 03/19/2025 11:30 AM EDT Surgery [facility] RO[facility] [address] [place] [address] Aarti Maldonado MD [address] [address] ENUCLEATION, PROSTATE, TRANSURETHRAL, USING HOLMIUM LASER [[id number] (CPT )] 04/18/2025 10:30 AM EDT Office Visit Medical Office Building Urology [address] [facility], [address] [place] [address] Aarti Maldonado MD [address] [place] [address] Scheduled Procedures Name Priority Associated [...] 2023 UKY-Diabetes: Hemoglobin A1C 05/22/2024 11/23/2023, 07/28/2022 [id number] Vaccine ( - 2023- season) 2024 03/07/2021, [...] Procedure discussed: discussed risks, benefits and alternatives Groundman/Lineman present: no Timeout: timeout called immediately prior to procedure Prep: patient was prepped and draped in usual sterile fashion Prep type: Betadine Anesthesia: local anesthesia Procedure Details Cystoscope type: flexible Cystoscopy route: transurethral Cystoscopy location: kaibab bladder Irrigation used: saline Position: supine Urethra [...] - 1.20 mg/dL 01/10/2025 1:54 PM EDT [facility] eGFRcr 96.2 mL/min/1.7 3m*2 01/10/2025 1:54 PM EDT [facility] Comment:Reported eGFRcr in m L/min/1.73m2 is based the CKD-EPI 2020 equation that does not use a race coefficient. Blood Venous blood specimen / Unknown Venipuncture / Unknown 01/10/2025 11:55 AM EDT 01/10/2025 11:55 AM EDT Aarti Maldonado MD LAB BLOOD ORDERABLES Final R esult [facility] [address] [place] [address] * POC US Bladder Volume (01/10/2025 10:21 AM EDT) Urine, Volume 76 mL IMAGING Anatomical Region Laterality Modality Other Aarti Maldonado MD IMG POINT OF CARE ULTRASOUND Final Result * (ABNORMAL) POCT URINALYSIS DIPSTICK (01/10/2025 10:01 AM EDT) POCT Urine Color Yellow 01/10/2025 10:03 AM EDT [facility] POCT Urine Clarity Clear 01/10/2025 10:03 AM EDT [facility] POCT Urine Glucose >=1000(A) Negative mg/dL 01/10/2025 10:03 AM EDT [facility] POCT Urine Bilirubin Negative Negative mg/dL 01/10/2025 10:03 AM EDT [facility] POCT Urine Ketones Negative Negative mg/dL 01/10/2025 10:03 AM EDT [facility] POCT Urine Specific [place] 1.020 1.005 - 1.030 01/10/2025 10:03 AM EDT [facility] POCT Urine Blood Negative Negative 01/10/2025 10:03 AM EDT [facility] POCT pH, Urine 5.5 5.0 - 8.0 01/10/2025 10:03 AM EDT [facility] POCT Protein, Urine Negative Negative mg/dL 01/10/2025 10:03 AM EDT [facility] POCT Urobilinogen, Urine 0.2 0.2, 1.0 EU/dL 01/10/2025 10:03 AM EDT [facility] POCT Nitrite, Urine Negative Negative 01/10/2025 10:03 AM EDT [facility] POCT Urine Leukocyte Esterase Negative Negative 01/10/2025 10:03 AM EDT [facility] Urine 01/10/2025 10:0 1 AM EDT 01/10/2025 10:03 AM EDT us Aarti Maldonado MD LAB POINT OF CARE TE ST DOCKED DEVICE UNSOLICITED RESULTS Final Result [facility] [address], [place] from Last 3 Months Additional Health Concerns Active Problems Noted Date Diagnosed Date Autogenerated Problem 02/13/2025 Insurance [employer] MEDICARE Care Teams Fish Worm Grower Relationship Specialty Start Date End Date Ryne Bergman MD [address] [place] [address] PCP - General 04/21/24 Abiola Loyola, SMOKING PIPE REPAIRER [address] [place] [address] Nurse Practitioner Urology 10/30/24 Aarti Maldonado MD [address] [place] [address] Surgeon Urology 01/10/25
--- OUTSIDE RECORDS SUMMARY | 2025-03-11 02:56 | XMS_ITS | Encounter Summary ---
Author Organization [facility] Address [address] [place] [address] Care Team Providers Care Patient Sitter Name Role Phone Ryne Bergman MD Primary Care Provider Abiola Loyola ANIMAL SHELTER MANAGER Unavailable [phone] Aarti Maldonado MD Unavailable [phone] Encounter Details Date Type Department Care Team (Late st Contact Info) Description 01/10/2025 Orders Only [place] [facility] [address], 2nd [place] [address] Aarti Maldonado MD [address] [place] [address] Social History Tobacco Use Types [...] -2 Score 0 01/10/2025 9:55 AM Bo Cocrhan * Question Answer Date of Assessment Author [...] EDT Appointment [facility] [address] [place] [address] 03/14/2025 2:45 PM EDT Pre-Admission Testing [place] [facility] [address], 1[address] [place] [address] 03/19/2025 9:15 AM EDT Hospital Encounter [facility] [address] [place] [address] Aarti Maldonado MD [address] [place] [address] 03/19/2025 9:15 AM EDT - 03/19/2025 11:30 AM EDT Surgery [facility] [address] [place] [address] Aarti Maldonado MD [address] [address] ENUCLEATION, PROSTATE, TRANSURETHRAL, USING HOLMIUM LASER [[id number] (CPT )] 04/18/2025 10:30 AM EDT Office Visit Medical Office Building Urology [address] [facility], [address] [place] [address] Aarti Maldonado MD [address] [address] Scheduled Procedures Name Priority Associated [...] documented as of this encounter Care Teams Patient Sitter Relationship Specialty Start Date End Date Ryne Bergman MD [address] [place] [address] PCP - General 04/21/24 Abiola Loyola APRN [address] [address] Nurse Practitioner Urology 10/30/24 Aarti Maldonado MD [address] [place] [address] Surgeon Urology 01/10/25 documented as of this encounter
--- OUTSIDE RECORDS SUMMARY | 2025-03-11 02:56 | XMS_ITS | Encounter Summary ---
Author Organization [facility] Address [address] [place] [address] Care Team Providers Care Oxygen System Tester Name Role Phone Ryne Bergman MD Primary Care Provider Abiola Loyola SET RIDER Unavailable [phone] Aarti Maldonado MD Unavailable [phone] Encounter Details Date Type Department Care Team (Late st Contact Info) Description 01/12/2025 Telephone [facility] U[facility] [address], 2nd [place] [address] Aarti Maldonado MD [address] [place] [address] Social History Tobacco Use Types [...] done 2 weeks prior to surgery at [facility] - urine culture order mailed to patient alone with surgery directions - patient is aware of this plan documented in this encounter Plan of Treatment Upcoming Encounters Date Type Department Care Team (Latest Contact Info) Description 03/12/2025 7:50 AM EDT Appointment [facility] Radiology [address] [place] [address] 03/14/2025 2:45 PM EDT Pre-Admission Testing [place] [facility] [address], 1st [place] [address] 03/19/2025 9:15 AM EDT Hospital Encounter [facility]ATING ROOM [address] [place] [address] Aarti Maldonado MD [address] [address] 03/19/2025 9:15 AM EDT - 03/19/2025 11:30 AM EDT Surgery [facility] RO[facility] [address] [place] [address] Aarti Maldonado MD [address] [place] [address] ENUCLEATION, PROSTATE, TRANSURETHRAL, USING HOLMIUM LASER [[id number] (CPT )] 04/18/2025 10:30 AM EDT Office Visit Medical Office Building Urology [facility] [address] [facility], [address] [place] [address] Aarti Maldonado MD [address] [place] [address] Scheduled Procedures Name Priority Associated Diagnoses Date/Ti [...] documented as of this encounter Care Teams Oxygen System Tester Relationship Specialty Start Date End Date Ryne Bergman MD [address] [place] [address] PCP - General 04/21/24 Abiola Loyola APRN [address] [place] [address] Nurse Practitioner Urology 10/30/24 Aarti Maldonado MD [address] [place] [address] Surgeon Urology 01/10/25 documented as of this encounter
--- OUTSIDE RECORDS SUMMARY | 2025-03-11 02:56 | XMS_ITS | Encounter Summary ---
Author Organization [facility] Address [address] [place] [address] Care Team Providers Care Shallot Cleaner Name Role Phone Ryne Bergman MD Primary Care Provider [phone] Abiola Loyola TAPPING MACHINE OPERATOR AUTOMATIC Unavailable [phone] Aarti Maldonado MD Unavailable [phone] Encounter Details Date Type Department Care Team [...] EDT Appointment [facility] Radiology [address] [place] [address] 03/14/2025 2:45 PM EDT Pre[place]mission Testing [place] [facility] [address], 1st [place] [address] 03/19/2025 9:15 AM EDT Hospital Encounter [facility] OPERATING ROOM [address] [place] [address] Aarti Maldonado MD [address] [place] [address] 03/19/2025 9:15 AM EDT - 03/19/2025 11:30 AM EDT Surgery [facility]ATING ROOM [address] [place] [address] Aarti Maldonado MD [address] [place] [address] ENUCLEATION, PROSTATE, TRANSURETHRAL, USING HOLMIUM LASER [[id number] (CPT )] 04/18/2025 10:30 AM EDT Office Visit Medical Office Building Urology [address] [facility], [address] [place] [address] Aarti Maldonado MD [address] [address] Scheduled Procedures Name Priority Associated [...] documented as of this encounter Care Teams Shallot Cleaner Relationship Specialty Start Date End Date Ryne Bergman MD [address] [place] [address] PCP - General 04/21/24 Abiola Loyola APRN [address] [address] Nurse Practitioner Urology 10/30/24 Aarti Maldonado MD [address] [address] Surgeon Urology 01/10/25 documented as of this encounter
--- OUTSIDE RECORDS SUMMARY | 2025-03-11 02:56 | XMS_ITS | Encounter Summary ---
Author Organization [facility] Address [address] [place] [address] Care Team Providers Care Oriental Medicine Practitioner Name Role Phone Ryne Bergman MD Primary Care Provider [phone] Abiola Loyola CONE RUNNER Unavailable [phone] Aarti Maldonado MD Unavailable [phone] Encounter Details Date Type Department Care Team (Late st Contact Info) Description 10/30/2019 Orders Only External Location [address] [place] [address] Provider, External Social History Tobacco [...] EDT Appointment [facility] Radiology [address] [place] [address] 03/14/2025 2:45 PM EDT Pre-Admission Testing [place] [facility] [address], 1st [place] [address] 03/19/2025 9:15 AM EDT Hospital Encounter [facility] OPERATING ROOM [address] [place] [address] Aarti Maldonado MD [address] [place] [address] 03/19/2025 9:15 AM EDT - 03/19/2025 11:30 AM EDT Surgery [facility] RO[facility] [address] [place] [address] Aarti Maldonado MD [address] [place] [address] ENUCLEATION, PROSTATE, TRANSURETHRAL, USING HOLMIUM LASER [[id number] (CPT )] 04/18/2025 10:30 AM EDT Office Visit Medical Office Building Urology [address] [facility], [address] [place] [address] Aarti Maldonado MD [address] [address] Scheduled Procedures Name Priority Associated [...] on filedocumented in this encounter Care Teams Oriental Medicine Practitioner Relationship Specialty Start Date End Date Ryne Bergman MD [address] [place] [address] PCP - General 04/21/24 Abiola Loyola APRN [address] [place] [address] Nurse Practitioner Urology 10/30/24 Aarti Maldonado MD [address] [address] Surgeon Urology 01/10/25 documented as of this encounter
--- OUTSIDE RECORDS SUMMARY | 2025-03-11 02:56 | XMS_ITS | Encounter Summary ---
Author Organization [facility] Address [address] [place] [address] Care Team Providers Care Lacrosse Player Name Role Phone Ryne Bergman MD Primary Care Provider [phone] Abiola Loyola AUXILIARY PLANT OPERATOR Unavailable [phone] Aarti Maldonado MD Unavailable [phone] Encounter Details Date Type Department Care Team (Late st Contact Info) Description 02/10/2024 Orders Only External Location [address] [place] [address] Nicole Bernstein, DO [address] [place] [address] Social History Tobacco Use Types [...] EDT Appointment [facility] Radiology [address] [place] [address] 03/14/2025 2:45 PM EDT Pre-Admission Testing [place] [facility] Pre-op [facility] [address], 1st [place] [address] 03/19/2025 9:15 AM EDT Hospital Encounter [facility] OPERATING ROOM [address] [place] [address] Aarti Maldonado MD [address] [place] [address] 03/19/2025 9:15 AM EDT - 03/19/2025 11:30 AM EDT Surgery [facility]ATING ROOM [address] [place] [address] Aarti Maldonado MD [address] [place] [address] ENUCLEATION, PROSTATE, TRANSURETHRAL, USING HOLMIUM LASER [[id number] (CPT )] 04/18/2025 10:30 AM EDT Office Visit Medical Office Building Urology [address] [facility], [address] [place] [address] Aarti Maldonado MD [address] [address] Scheduled Procedures Name Priority Associated [...] on filedocumented in this encounter Care Teams Lacrosse Player Relationship Specialty Start Date End Date Ryne Bergman MD [address] [place] [address] PCP - General 04/21/24 Abiola Loyola APRN [address] [place] [address] Nurse Practitioner Urology 10/30/24 Aarti Maldonado MD [address] [place] [address] Surgeon Urology 01/10/25 documented as of this encounter
--- OUTSIDE RECORDS SUMMARY | 2025-03-11 02:56 | XMS_ITS | Encounter Summary ---
Author Organization [facility] Address [address] [place] [address] Care Team Providers Care Mutual Funds Agent Name Role Phone Ryne Bergman MD Primary Care Provider Abiola Loyola DIRECTOR CONSTRUCTION SERVICES Unavailable [phone] Aarti Maldonado MD Unavailable [phone] Encounter Details Date Type Department Care Team (Late st Contact Info) Description 02/13/2025 Telephone [place] [facility] U[facility] [address], 2nd [place] [address] Aarti Maldonado MD [address] [facility] [address] [place] [address] Social History Tobacco Use Types [...] patient, notified him surgery location changed to [facility] on 03/19 documented in this encounter Plan of Treatment Upcoming Encounters Date Type Department Care Team (Latest Contact Info) Description 03/12/2025 7:50 AM EDT Appointment [facility] Radiology [address] [place] [address] 03/14/2025 2:45 PM EDT [facility] Testing [place] [facility] [address] [facility] [address] [place] [address] 03/19/2025 9:15 AM EDT Hospital Encounter [facility] A OPERATING ROOM [address] [place] [address] Aarti Maldonado MD [address] [address] 03/19/2025 9:15 AM EDT - 03/19/2025 11:30 AM EDT Surgery [facility] OPERATING ROOM [address] [place] [address] Aarti Maldonado MD [address] [address] ENUCLEATION, PROSTATE, TRANSURETHRAL, USING HOLMIUM LASER [[id number] (CPT )] 04/18/2025 10:30 AM EDT Office Visit Medical Office Building Urology [address] [facility], [address] [place] [address] Aarti Maldonado MD [address] [place] [address] Scheduled Procedures Name Priority Associated Diagnoses [...] documented as of this encounter Care Teams Mutual Funds Agent Relationship Specialty Start Date End Date Ryne Bergman MD [address] [place] [address] PCP - General 04/21/24 Abiola Loyola, LUCHO [address] [address] Nurse Practitioner Urology 10/30/24 Aarti Maldonado MD [address] [place] [address] Surgeon Urology 01/10/25 documented as of this encounter
--- OUTSIDE RECORDS SUMMARY | 2025-03-11 02:56 | XMS_ITS | Encounter Summary ---
Author Organization [facility] Address [address] [place] [address] Care Team Providers Care Pack Changer Name Role Phone Ryne Bergman MD Primary Care Provider Abiola Loyola SHAPER HAND Unavailable [phone] Aarti Maldonado MD Unavailable Reason for Visit * Reason Onset Date Comments HCN Clinical Concern/Question 03/09/2025 Encounter Details Date Type Department Care Team (Late st Contact Info) Description 03/09/2025 Telephone [place] [facility] Urology [address], 2nd [place] [address] Aarti Maldonado MD [address] [place] [address] HCN Clinical Concern/Question Social History [...] optimal time of day to reach caller: [phone] Note: Please do not reply to this message. Follow-up communication and further actions as a result of this message need to be communicated with the patient directly, if the patient is not active onMyChart. If the patient is active on MyChart, they will receive notification of the communication/outcome via [employer]. documented in this encounter Plan of Treatment Upcoming Encounters Date Type Department Care Team (Latest Contact Info) Description 03/12/2025 7:50 AM EDT Appointment [facility] Radiology [address] [place] [address] 03/14/2025 2:45 PM EDT Pre-Admission Testing [place] [facility] Pre-op Clinic [address], 1st [place] [address] 03/19/2025 9:15 AM EDT Hospital Encounter [facility] OPERATING ROOM [address] [place] [address] Aarti Maldonado MD [address] [place] [address] 03/19/2025 9:15 AM EDT - 03/19/2025 11:30 AM EDT Surgery [facility] A OPERATING ROOM [address] [place] [address] Aarti Maldonado MD [address] [facility] [place] [address] ENUCLEATION, PROSTATE, TRANSURETHRAL, USING HOLMIUM LASER [[id number] (CPT )] 04/18/2025 10:30 AM EDT Office Visit Medical Office Building Urology [address] [facility], [address] [place] [address] Aarti Maldonado MD [address] [facility]00 [place] [address] Scheduled Procedures Name Priority [...] documented as of this encounter Care Teams Pack Changer Relationship Specialty Start Date End Date Ryne Bergman MD [address] [place] [address] PCP - General 04/21/24 Abiola Loyola APRN [address] [address] Nurse Practitioner Urology 10/30/24 Aarti Maldonado MD [address] [address] Surgeon Urology 01/10/25 documented as of this encounter
--- OUTSIDE RECORDS SUMMARY | 2025-03-11 02:56 | XMS_ITS | Encounter Summary ---
Author Organization [facility] Address [address] [place] [address] Care Team Providers Care Toolroom Clerk Name Role Phone Ryne Bergman MD Primary Care Provider [phone] Abiola Loyola HEALTH SAFETY MANAGER Unavailable [phone] Aarti Maldonado MD Unavailable [phone] Encounter Details Date Type Department Care Team (Late st Contact Info) Description 01/15/2025 Telephone [place] [facility] Urology [address], 2nd [place] [address] Aarti Maldonado MD [address] [place] [address] Social History Tobacco Use Types [...] and spoke with Cara the pharmacist at [facility] and let her know that it was only 1Valium for him to take prior to the MRI documented in this encounter Plan of Treatment Upcoming Encounters Date Type Department Care Team (Latest Contact Info) Description 03/12/2025 7:50 AM EDT Appointment [facility] A Radiology [address] [place] [address] 03/14/2025 2:45 PM EDT Pre-Admission Testing [place] [facility] Pre-op Clinic [address] [facility], 1st [place] [address] 03/19/2025 9:15 AM EDT Hospital Encounter P[facility] A OPERATING ROOM [address] [place] [address] Aarti Maldonado MD [address] [address] 03/19/2025 9:15 AM EDT - 03/19/2025 11:30 AM EDT Surgery PAV A OPERATING ROOM [address] [place] [address] Aarti Maldonado MD [address] [address] ENUCLEATION, PROSTATE, TRANSURETHRAL, USING HOLMIUM LASER [[id number] (CPT )] 04/18/2025 10:30 AM EDT Office Visit Medical Office Building Urology [address] [facility], [address] [place] [address] Aarti Maldonado MD [address] [address] Scheduled Procedures Name Priority Associated Diagnoses Date/Ti [...] documented as of this encounter Care Teams Toolroom Clerk Relationship Specialty Start Date End Date Ryne Bergman MD [address] [place] [address] PCP - General 04/21/24 Abiola Loyola APRN [address] [place] [address] Nurse Practitioner Urology 10/30/24 Aarti Maldonado MD [address] [place] [address] Surgeon Urology 01/10/25 documented as of this encounter
--- OUTSIDE RECORDS SUMMARY | 2025-03-11 02:56 | XMS_ITS | Encounter Summary ---
Author Organization [facility] Address [address] [place] [address] Care Team Providers Care Sheepskin Pickler Name Role Phone Ryne Bergman MD Primary Care Provider Abiola Loyola KITCHEN AND BATH DESIGNER Unavailable [phone] Aarti Maldonado MD Unavailable [phone] Encounter Details Date Type Department Care Team (Late st Contact Info) Description 03/08/2025 Orders Only [place] [facility] Urology [address], 2nd [place] [address] Aarti Maldonado MD [address] [place] [address] Microhematuria (Primary Dx) Social History [...] EDT Appointment [facility] Radiology [address] [place] [address] 03/14/2025 2:45 PM EDT Pre-Admission Testing [place] [facility] Pre[facility]op [facility] [address], 1st [place] [address] 03/19/2025 9:15 AM EDT Hospital Encounter PAV A OPERATING ROOM [address] [place] [address] Aarti Maldonado MD [address] [address] 03/19/2025 9:15 AM EDT - 03/19/2025 11:30 AM EDT Surgery PAV A OPERATING ROOM [address] [place] [address] Aarti Maldonado MD [address] [address] ENUCLEATION, PROSTATE, TRANSURETHRAL, USING HOLMIUM LASER [[id number] (CPT )] 04/18/2025 10:30 AM EDT Office Visit Medical Office Building Urology [facility] [address] [facility], [address] [place] [address] Aarti Maldonado MD [address] [address] Scheduled Orders Name Type Priority [...] documented as of this encounter Care Teams Sheepskin Pickler Relationship Specialty Start Date End Date Ryne Bergman MD [address] [place] [address] PCP - General 04/21/24 Abiola Loyola APRN [address] [place] [address] Nurse Practitioner Urology 10/30/24 Aarti Maldonado MD [address] [place] [address] Surgeon Urology 01/10/25 documented as of this encounter
--- OUTSIDE RECORDS SUMMARY | 2025-03-11 02:56 | XMS_ITS | Encounter Summary ---
Author Organization [facility] Address [address] [place] [address] Care Team Providers Care Felt Pad Cutter Name Role Phone Ryne Bergman MD Primary Care Provider Abiola Loyola BOOM CONVEYOR OPERATOR Unavailable [phone] Aarti Maldonado MD Unavailable [phone] Encounter Details Date Type Department Care Team (Late st Contact Info) Description 02/13/2025 Telephone [place] [facility] U[facility] [address], 2nd [place] [address] Aarti Maldonado MD [address] [facility] [address] [place] [address] Social History Tobacco Use Types [...] EDT Appointment [facility] A Radiology [address] [place] [address] 03/14/2025 2:45 PM EDT Pre-Admission Testing [place] [facility] Pre[facility] [address] [facility], 1st [place] [address] 03/19/2025 9:15 AM EDT Hospital Encounter PAV A OPERATING ROOM [address] [place] [address] Aarti Maldonado MD [address] [address] 03/19/2025 9:15 AM EDT - 03/19/2025 11:30 AM EDT Surgery PAV A OPERATING ROOM [address] [place] [address] Aarti Maldonado MD [address] [address] ENUCLEATION, PROSTATE, TRANSURETHRAL, USING HOLMIUM LASER [[id number] (CPT )] 04/18/2025 10:30 AM EDT Office Visit Medical Office Building Urology [address] [facility], [address] [place] [address] Aarti Maldonado MD [address] [address] Scheduled Procedures Name Priority Associated Diagnoses Date/Ti [...] documented as of this encounter Care Teams Felt Pad Cutter Relationship Specialty Start Date End Date Ryne Bergman MD [address] [place] [address] PCP - General 04/21/24 Abiola Loyola, BOOM CONVEYOR OPERATOR [address] [facility] [place] [address] Nurse Practitioner Urology 10/30/24 Aarti Maldonado MD [address] [place] [address] Surgeon Urology 01/10/25 documented as of this encounter
--- OUTSIDE RECORDS SUMMARY | 2025-03-11 02:56 | XMS_ITS | Encounter Summary ---
Author Organization [facility] Address [address] [place] [address] Care Team Providers Care Sonographer Name Role Phone Ryne Bergman MD Primary Care Provider Abiola Loyola TOOL AND DIE REPAIR Unavailable [phone] Aarti Maldonado MD Unavailable [phone] Encounter Details Date Type Department Care Team (Late st Contact Info) Description 01/10/2025 Telephone [place] [facility] Urology [address], 2[address] [place] [address] Aarti Maldonado MD [address] [place] [address] Social History Tobacco Use Types [...] EDT Appointment [facility] A Radiology [address] [place] [address] 03/14/2025 2:45 PM EDT Pre-Admission Testing [facility] Pre-op Clinic [address], 1[address] [place] [address] 03/19/2025 9:15 AM EDT Hospital Encounter PAV A OPERATING ROOM [address] [place] [address] Aarti Maldonado MD [address] [address] 03/19/2025 9:15 AM EDT - 03/19/2025 11:30 AM EDT Surgery PAV A OPERATING ROOM [address] [place] [address] Aarti Maldonado MD [address] [address] ENUCLEATION, PROSTATE, TRANSURETHRAL, USING HOLMIUM LASER [[id number] (CPT )] 04/18/2025 10:30 AM EDT Office Visit Medical Office Building Urology [address] [place] [address], [address] [place] [address] Aarti Maldonado MD [address] [address] Scheduled Procedures Name Priority Associated Diagnoses Date/Ti [...] documented as of this encounter Care Teams Sonographer Relationship Specialty Start Date End Date Ryne Bergman MD [address] [place] [address] PCP - General 04/21/24 Abiola Loyola, LUCHO [address] [address] Nurse Practitioner Urology 10/30/24 Aarti Maldonado MD [address] [address] Surgeon Urology 01/10/25 documented as of this encounter
--- OUTSIDE RECORDS SUMMARY | 2025-03-11 02:56 | XMS_ITS | Encounter Summary ---
Author Organization [facility] Address [address] [place] [address] Care Team Providers Care Cook Manager Name Role Phone Ryne Bergman MD Primary Care Provider [phone] Abiola Loyola KELP GATHERER Unavailable [phone] Aarti Maldonado MD Unavailable [phone] Encounter Details Date Type Department Care Team (Late st Contact Info) Description 03/09/2025 Orders Only [facility] Urology [address], [address] [place] [address] Aarti Maldonado MD [address] [place] [address] Social History Tobacco Use Types [...] EDT Appointment [facility] Radiology [address] [place] [address] 03/14/2025 2:45 PM EDT [facility] [address] [facility], [address]st [place] [address] 03/19/2025 9:15 AM EDT Hospital Encounter [facility] OPERATING ROOM [address] [place] [address] Aarti Maldonado MD [address] [address] 03/19/2025 9:15 AM EDT - 03/19/2025 11:30 AM EDT Surgery [facility] [address] [place] [address] Aarti Maldonado MD [address] [address] ENUCLEATION, PROSTATE, TRANSURETHRAL, USING HOLMIUM LASER [[id number] (CPT )] 04/18/2025 10:30 AM EDT Office Visit Medical Office Building Urology [address] [facility], [address] [place] [address] Aarti Maldonado MD [address] [address] Scheduled Procedures Name Priority Associated Diagnoses Date/Ti [...] documented as of this encounter Care Teams Cook Manager Relationship Specialty Start Date End Date Ryne Bergman MD [address] [place] [address] PCP - General 04/21/24 Abiola Loyola APRN [address] [facility] [place] [address] Nurse Practitioner Urology 10/30/24 Aarti Maldonado MD [address] [place] [address] Surgeon Urology 01/10/25 documented as of this encounter
--- OUTSIDE RECORDS SUMMARY | 2025-03-11 02:56 | XMS_ITS | Encounter Summary ---
Author Organization [facility] Address [address] [place] [address] Care Team Providers Care Wool Washer Name Role Phone Ryne Bergman MD Primary Care Provider [phone] Abiola Loyola GEOSPATIAL PROGRAM MANAGEMENT OFFICER Unavailable [phone] Aarti Maldonado MD Unavailable [phone] Reason for Visit * Reason Onset Date Comments 03/05/25 Urine culture results from [facility] 03/08/2025 Encounter Details Date Type Department Care Team (Late st Contact Info) Description 03/08/2025 Telephone [facility] U[facility] [address], [address] [place] [address] Aarti Maldonado MD [address] [place] [address] 03/05/25 Urine culture results from [facility] Social History Tobacco Use Types Packs/Day Years [...] AM EDT 03/05/25 Urine culture results from [facility] and have been uploaded to media. Thank you. documented in this encounter Plan of Treatment Upcoming Encounters Date Type Department Care Team (Latest Contact Info) Description 03/12/2025 7:50 AM EDT Appointment [facility] Radiology [address] [place] [address] 03/14/2025 2:45 PM EDT Pre-Admission Testing [facility] [address], [address] [place] [address] 03/19/2025 9:15 AM EDT Hospital Encounter [facility] RO[facility] [address] [place] [address] Aarti Maldonado MD [address] [place] [address] 03/19/2025 9:15 AM EDT - 03/19/2025 11:30 AM EDT Surgery [facility] RO[facility] [address] [place] [address] Aarti Maldonado MD [address] [place] [address] ENUCLEATION, PROSTATE, TRANSURETHRAL, USING HOLMIUM LASER [[id number] (CPT )] 04/18/2025 10:30 AM EDT Office Visit Medical Office Building Urology [address] [place] [address], [address] [place] [address] Aarti Maldonado MD [address] [place] [address] Scheduled Procedures Name Priority Associated [...] documented as of this encounter Care Teams Wool Washer Relationship Specialty Start Date End Date Ryne Bergman MD [address] [place] [address] PCP - General 04/21/24 Abiola Loyola APRN [address] [address] Nurse Practitioner Urology 10/30/24 Aarti Maldonado MD [id number] [place] [address] Surgeon Urology 01/10/25 documented as of this encounter
[2025-03-11 03:29] LABS: Troponin I < 0.01 ng/ml (0.00-0.034)
--- NOTE | 2025-03-11 04:03 | PC.NURSE ---
Pt AOx4. Recently arrived to unit. at bedside. NSR on tele. States that chest pain has decreased. 2L O2. at bedside. Currently resting in bed with eyes open. Respirations even and unlabored. Denies any needs at this time. Bed is low, locked, and call light is in reach.
[2025-03-11 05:15] LABS: POC Glucose,Bedside 141 (70-110)
[2025-03-11 06:55] LABS: Albumin Level 3.7 g/dl (3.5-5.0); Chloride 107 mmol/L (98-107)
[2025-03-11 06:56] LABS: Potassium 4.2 mmoL/L (3.5-5.1); Sodium 137 mmol/L (136-145)
[2025-03-11 06:58] LABS: Anion Gap 9.2 mEq/L (5-15); Blood Urea Nitrogen 25 mg/dl (9-20); Carbon Dioxide 25 mmol/L (22.0-30.0); Creatinine Clearance Estimated 107 mL/min (50-200); Estimated Glomerular Filt Rate 75 ml/min (>60); GFR (African American) 90 ML/MIN (>60)
[2025-03-11 06:59] LABS: Alanine Aminotransferase 59 U/L (12-78); Albumin/Globulin Ratio 1.8 (1.1-1.8); Alkaline Phosphatase 93 U/L (38-126); Aspartate Amino Transferase 66 U/L (17-59); Bilirubin,Total 0.8 mg/dl (0.2-1.3); Globulin 2.1 g/dL (1.3-3.2); Glucose 174 mg/dl (74-100); Total Protein,Serum 5.8 g/dl (6.3-8.2)
[2025-03-11 07:09] LABS: Troponin I < 0.01 ng/ml (0.00-0.034)
[2025-03-11] MEDS: ENOXAPARIN 40MG/0.4ML SYRINGE 40 MG SUBCUT (08:54)
--- NOTE | 2025-03-11 08:57 | HMH.PHAINT1 ---
Pharmacy Intervention Comments: MEDICATION RECONCILIATION COMPLETED ON PATIENT USING EXTERNAL FILL HISTORY FROM PHARMACY AND CARDIOLOGY OFFICE. -ELIZABETH SHARIF, SHIRLENED
[2025-03-11 10:06] LABS: Hemoglobin A1C 7.9 % (4.0-6.0)
[2025-03-11] MEDS: humaLOG 100 UNITS/ML 10ML VIAL (SSI) SUBCUT ×2 (11:46→16:03)
--- NOTE | 2025-03-11 16:13 | EXP.DC.SUM ---
General Admission date:: 03/11/25 HPI HPI HPI: Mr. Castrejon has a very interesting history here. He comes in today sleepy, having to hold onto his to walk-in., And having chest pain. On my initial exam he did wake up was talking to me and fell asleep while talking to me. Was able to wake him up he then became more alert sat him up. Vital signs were normal O2 sats were normal., He became more alert and oriented during our conversation. Went over recent changes, and he noted that he and his were both with bronchitis approximately a week week and a half ago the had to seek care, he did not receive any medicines from it feels that he is over it. He then saw his doctor in January and had his nifedipine increased from 60 to 90-day. Also had spirolactone added. He has noted for a long history of neck back and hip pain. He went to the pain clinic was evaluated and he was placed on methocarbamol 3 times a day. Per the note a 2-week prescription was given. He also has an enlarged prostate and is planning on surgery at the [facility]. He states that he is able to empty his bladder. Did do a bladder scan in the emergency room and was only 225 cc, before voiding. Patient also noted he started smoking a year ago only 4 to 5 cigarettes a day after both of his parents he had smoked approximately 20 years ago but had stopped. He also noted he had a cardiac cath more than 10 years ago that was normal in [place], also a colonoscopy with some polyps in 2019. He is on multiple diabetic medications. Presently describes his chest discomfort as a pressure, that does not increase with palpation of the chest wall. Agree with the ER physician to have him evaluated overnight serial troponins, cardiology was called and is aware of the patient.. Also noting will do orthostatic blood pressures that the patient had 1 blood pressure medicine increased and a diuretic added. Then was placed on methocarbamol 3 times a day also has a side effect of causing dizziness lightheadedness and hypotension Hospital Course Hospital Course Hospital Course: Ramsey Castrejon is a 64 year old male with a medical history significant for current tobacco smoker, type 2 diabetes, hypertension, BPH with LUTS, anxiety presented with chest pain and was admitted for evaluation same. #Chest pain #Suspected CAD ? Presented with acute onset chest pain while at rest that was alleviated by nitro. ? Troponins, EKG negative and unremarkable respectively. No longer having chest pain. ? ECHO shows normal biventricular systolic function, increased septal wall thickening. ? Patient has an upcoming TURP procedure on 03/19 that is taking months to schedule. Also has prostate MRI tomorrow. Spoke to Dr. Flynn extensively, we will pursue outpatient ischemic workup tomorrow afternoon in the cardiology clinic after patient gets his MRI tomorrow morning at . ? Discharged with metoprolol succinate 25 mg, continue aspirin, statin. #Hypertension ? Patient has been having low blood pressures at home, decreased nifedipine to 60 mg and advised to hold off on spironolactone until further evaluation by cardiology. ? Continue home valsartan 320 milligrams. #Type 2 diabetes ? Hemoglobin A1c 7.9%. Continue home regimen. #Anxiety/depression ? Continue home fluoxetine. Total time spent on discharge: 35 minutes on chart review, counseling, documentation, and direct care with patient. Exam Data for Last 24 hours Vital signs and Labs for Last 24 Hours: Temp Pulse Resp BP Pulse Ox O2 Del Method O2 Flow Rate 98 F 67 16 135/64 95 Room Air 2 03/11/25 11:59 03/11/25 11:59 03/11/25 11:59 03/11/25 11:59 03/11/25 11:59 03/11/25 15:00 03/11/25 05:00 Laboratory Results - last 24 hr 03/10/25 23:22: WBC 12.5 H, RBC 4.29 L, Hgb 12.8 L, Hct 39.8 L, MCV 92.8, MCH 29.8, MCHC 32.2, RDW 13.2, Plt Count 246, MPV 9.6, Neut % (Auto) 55.9, Lymph % (Auto) 32.2, [place] % (Auto) 8.8, Eos % (Auto) 2.2, Baso % (Auto) 0.6, Neut # (Auto) 7.0, Lymph # (Auto) 4.0, [place] # (Auto) 1.1 H, Eos # (Auto) 0.3, Baso # (Auto) 0.1, PT 10.5, INR 0.94, D-Dimer 0.31, Sodium 138, Potassium 3.8, Chloride 107, Carbon Dioxide 24, Anion Gap 10.8, BUN 26 H, Creatinine 1.20, Estimated Creat Clear 89, Estimated GFR 61, Est GFR ( Amer) 73, Glucose 157 H, Calcium 10.7 H, Total Bilirubin 0.6, AST 31, ALT 27, Alkaline Phosphatase 75, Troponin I < 0.01, NT-Pro-B Natriuret Pep 71.1, Total Protein 6.8, Albumin 4.3, Globulin 2.5, Albumin/Globulin Ratio 1.7 03/11/25 02:17: Troponin I < 0.01 03/11/25 05:06: POC Glucose 141 H 03/11/25 06:10: Sodium 137, Potassium 4.2, Chloride 107, Carbon Dioxide 25, Anion Gap 9.2, BUN 25 H, Creatinine 1.00, Estimated Creat Clear 107, Estimated GFR 75, Est GFR ( Amer) 90 D, Glucose 174 H, Hemoglobin A1c 7.9 H, Calcium 9.0, Magnesium 2.0, Total Bilirubin 0.8, AST 66 H D, ALT 59 D, Alkaline Phosphatase 93, Troponin I < 0.01, Total Protein 5.8 L, Albumin 3.7 D, Globulin 2.1, Albumin/Globulin Ratio 1.8 I & O for Last 24 hours: Intake & Output 03/08/25 03/09/25 03/10/25 03/11/25 23:59 23:59 23:59 23:59 Weight 104.326 kg 104.099 kg Constitutional Constitutional: no acute distress and obese *Routine HEENT Exam Head: Present normocephalic Eye: Present EOMI and PERRL ENT: Present mucous membranes moist *Routine Neck Exam Neck: Present supple; Absent lymphadenopathy *Routine Respiratory Exam Respiratory: Present CTA bilaterally *Routine Cardiovascular Exam Cardiovascular: Present RRR *Routine Abdominal Exam Abdominal: Present soft and normoactive bowel sounds; Absent tenderness *Routine Extremities Exam Extremities: Absent cyanosis, clubbing or edema *Routine Skin Exam Skin: Present warm; Absent rash *Routine Neurological Exam Neurological: Present alert and oriented X3 Results Data Completed and Pending Labs on day of discharge: Labs from last 24 hours 03/11/25 03/11/25 03/11/25 06:10 05:06 02:17 WBC RBC Hgb Hct MCV MCH MCHC RDW Plt Count MPV Neut % (Auto) Lymph % (Auto) [place] % (Auto) Eos % (Auto) Baso % (Auto) Neut # (Auto) Lymph # (Auto) [place] # (Auto) Eos # (Auto) Baso # (Auto) PT INR D-Dimer Sodium 137 Potassium 4.2 Chloride 107 Carbon Dioxide 25 Anion Gap 9.2 BUN 25 H Creatinine 1.00 Estimated Creat Clear 107 Estimated GFR 75 Est GFR ( Amer) 90 D Glucose 174 H POC Glucose 141 H Hemoglobin A1c 7.9 H Calcium 9.0 Magnesium 2.0 Total Bilirubin 0.8 AST 66 H D ALT 59 D Alkaline Phosphatase 93 Troponin I < 0.01 < 0.01 NT-Pro-B Natriuret Pep Total Protein 5.8 L Albumin 3.7 D Globulin 2.1 Albumin/Globulin Ratio 1.8 03/10/25 23:22 WBC 12.5 H RBC 4.29 L Hgb 12.8 L Hct 39.8 L MCV 92.8 MCH 29.8 MCHC 32.2 RDW 13.2 Plt Count 246 MPV 9.6 Neut % (Auto) 55.9 Lymph % (Auto) 32.2 Mid[place] % (Auto) 8.8 Eos % (Auto) 2.2 Baso % (Auto) 0.6 Neut # (Auto) 7.0 Lymph # (Auto) 4.0 [place] # (Auto) 1.1 H Eos # (Auto) 0.3 Baso # (Auto) 0.1 PT 10.5 INR 0.94 D-Dimer 0.31 Sodium 138 Potassium 3.8 Chloride 107 Carbon Dioxide 24 Anion Gap 10.8 BUN 26 H Creatinine 1.20 Estimated Creat Clear 89 Estimated GFR 61 Est GFR ( Amer) 73 Glucose 157 H POC Glucose Hemoglobin A1c Calcium 10.7 H Magnesium Total Bilirubin 0.6 AST 31 ALT 27 Alkaline Phosphatase 75 Troponin I < 0.01 NT-Pro-B Natriuret Pep 71.1 Total Protein 6.8 Albumin 4.3 Globulin 2.5 Albumin/Globulin Ratio 1.7 DS: Diagnosis Discharge Diagnosis (1) Chest pain: Status: Acute Code(s): R07.9 - Chest pain, unspecified Qualifiers: Chest pain type: unspecified Qualified Code(s): R07.9 - Chest pain, unspecified (2) Dizziness, nonspecific: Status: Acute Code(s): R42 - Dizziness and giddiness (3) Insulin dependent diabetes mellitus: Status: Acute (4) Greater trochanteric bursitis of both hips: Status: Acute Code(s): M70.61 - Trochanteric bursitis, right hip; M70.62 - Trochanteric bursitis, left hip (5) Hypotension: Status: Acute Code(s): I95.9 - Hypotension, unspecified Qualifiers: Hypotension type: unspecified hypotension type Qualified Code(s): I95.9 - Hypotension, unspecified (6) Hypertension: Status: Acute Code(s): I10 - Essential (primary) hypertension Qualifiers: Hypertension type: primary hypertension Qualified Code(s): I10 - Essential (primary) hypertension (7) Obstructive sleep apnea syndrome: Status: Acute Code(s): G47.33 - Obstructive sleep apnea (adult) (pediatric) (8) Chronic neck and back pain: Status: Acute Code(s): M54.2 - Cervicalgia; M54.9 - Dorsalgia, unspecified; G89.29 - Other chronic pain (9) Medication reaction: Status: Acute Code(s): T50.905A - Adverse effect of unspecified drugs, medicaments and biological substances, initial encounter Qualifiers: Encounter type: initial encounter Qualified Code(s): T50.905A - Adverse effect of unspecified drugs, medicaments and biological substances, initial encounter Meds Home Medications and Allergies Home Medications ?Medication ?Instructions ?Recorded ?Confirmed ?Type topiramate 25 mg tablet (Topamax) 25 mg PO BID 10/05/17 03/13/25 History fluoxetine 60 mg tablet 60 mg PO DAILY 03/17/24 03/13/25 History insulin lispro protamine-lispro 0 unit SQ DIRECTED 03/17/24 03/13/25 History 100 unit/mL (75-25) subcutaneous pen pioglitazone 45 mg tablet (Actos) 45 mg PO DAILY 03/17/24 03/13/25 History finasteride 5 mg tablet (Proscar) 5 mg PO DAILY #90 tabs 11/20/24 03/13/25 Rx aspirin 81 mg capsule 81 mg PO DAILY #30 caps 01/11/25 03/13/25 Rx blood sugar diagnostic (OneTouch #10 ea 01/25/25 03/13/25 History Verio test strips) blood-glucose sensor (FreeStyle #1 ea 01/25/25 03/13/25 History Yuliya 3 Plus Sensor device) empagliflozin 10 mg tablet 10 mg PO DAILY 01/25/25 03/13/25 History (Jardiance) pen needle, diabetic 32 gauge x #1,200 ea 01/25/25 03/13/25 History pramipexole 1 mg tablet 1 mg PO HS 01/25/25 03/13/25 History rosuvastatin 20 mg tablet 20 mg PO DAILY 01/25/25 03/13/25 History tamsulosin 0.4 mg capsule 0.4 mg PO BID 01/25/25 03/13/25 History valsartan 320 mg tablet 320 mg PO DAILY 01/25/25 03/13/25 History albuterol sulfate 90 mcg/actuation 1 inh inhalation Q6HP PRN 03/11/25 03/13/25 History aerosol inhaler Shortness Of Breath metformin 750 mg tablet,extended 750 mg PO DAILY 03/11/25 03/13/25 History release 24 hr metoprolol succinate 25 mg 25 mg PO DAILY #30 tabs 03/11/25 03/13/25 Rx tablet,extended release 24 hr nifedipine 90 mg tablet,extended 60 mg (0.6667 x 90 mg) PO DAILY 03/11/25 03/13/25 Rx release #30 tabs spironolactone 25 mg tablet 25 mg PO DAILY 03/11/25 03/13/25 History nitroglycerin 0.4 mg sublingual 0.4 mg sublingual Q5M PRN chest 03/13/25 03/13/25 Rx tablet pain #20 tabs New Prescriptions to Start Prescriptions: metoprolol succinate Shaun Lemus Allergies Allergy/AdvReac Type Severity Reaction Status Date / Time oxybutynin Allergy Severe angioedema Verified 03/13/25 10:30 morphine (MORPHINE) Allergy Unknown Verified 03/13/25 10:30 Discharge Plan Disposition Patient Disposition: Home, Self-Care Condition: Fair Follow up Plan Follow up with: Cm Triana PA [[facility] [employer] [facility], Cardiology] - 03/12/25 Prescriptions/Medication Reconciliation: New metoprolol succinate 25 mg tablet extended release 24 hr 25 mg PO DAILY Qty: 30 0RF Continued topiramate [Topamax] 25 mg tablet 25 mg PO BID (DME) OneTouch Verio test strips Strip See Rx Instructions .ROUTE .MEDSUPPLY Qty: 10 Patient Comments: USE 1 STRIP TO CHECK GLUCOSE TWICE DAILY DIRECTED Rx Instructions: As directed rosuvastatin 20 mg tablet 20 mg PO DAILY Patient Comments: TAKE 1 TABLET BY MOUTH ONCE DAILY (DME) FreeStyle Yuliya 3 Plus Sensor Device See Rx Instructions .ROUTE .MEDSUPPLY Qty: 1 Patient Comments: USE SENSOR EVERY 15 DAYS Rx Instructions: As directed (DME) pen needle, diabetic 32 gauge x 5/32 needle See Rx Instructions .ROUTE .MEDSUPPLY Qty: 1200 Patient Comments: USE 1 PEN SUBCUTANEOUSLY THREE TIMES DAILY WITH INJECTABLE MEDICATION Rx Instructions: As directed pramipexole 1 mg tablet 1 mg PO HS Patient Comments: TAKE 1 TABLET BY MOUTH ONCE DAILY AT NIGHT tamsulosin 0.4 mg capsule 0.4 mg PO BID Patient Comments: TAKE 1 CAPSULE BY MOUTH TWICE DAILY 30 MINUTES AFTER MEAL Jardiance 10 mg tablet 10 mg PO DAILY Patient Comments: TAKE 1 TABLET BY MOUTH ONCE DAILY valsartan 320 mg tablet 320 mg PO DAILY finasteride [Proscar] 5 mg tablet 5 mg PO DAILY Qty: 90 3RF pioglitazone [Actos] 45 mg Tablet 45 mg PO DAILY insulin lispro protamin-lispro 100 unit/mL (75-25) Insulin Pen 0 unit SQ DIRECTED Rx Instructions: 60 UNITS IN AM, 30 UNITS AT NOON, 60 UNITS AT BEDTIME fluoxetine 60 mg Tablet 60 mg PO DAILY metformin 750 mg tablet extended release 24 hr 750 mg PO DAILY Patient Comments: TAKE 1 TABLET BY MOUTH ONCE DAILY WITH BREAKFAST albuterol sulfate 90 mcg/actuation HFA aerosol inhaler 1 inh inhalation Q6HP PRN (Reason: Shortness Of Breath) aspirin 81 mg capsule 81 mg PO DAILY Qty: 30 0RF Changed nifedipine 90 mg tablet extended release 60 mg PO DAILY Qty: 30 2RF Held spironolactone 25 mg tablet 25 mg PO DAILY Hold Instructions: Resume on 03/25/25. Hold this medication until evaluation by cardiology. Patient Comments: TAKE 1 TABLET BY MOUTH ONCE DAILY Discontinued methocarbamol 500 mg tablet 500 mg PO TID No Action nitroglycerin 0.4 mg tablet, sublingual 0.4 mg sublingual Q5M PRN (Reason: chest pain) Qty: 20 0RF Rx Instructions: do not exceed 3 doses per episode Problem Reconciliation Problems Reviewed?: Yes Patient Discharge Instructions Patient Instructions: DI for Chest Pain, Stop Light Heart Failure Print Language: Citizen Of [place] Providers Primary Care Provider: Ryne Bergman Admit Provider: Shaun Lemus Attending Provider: Shaun Lemus
--- NOTE | 2025-03-12 11:14 | SW/DCPLANNER ---
Spoke with patient on the phone. Patient stated that he is doing good. Patient stated that he is aware of his upcoming appointments. Patient stated that he is heading now to get his new medicine. Patient stated that he has no concerns or questions at this time. Arleen Montgomery
== END 2025-03-11 17:37 | disposition home or self-care (01) ==
LOC: 2ND 03-11 02:54 → ER 03-11 02:54
PROVIDERS: Nurse Practitioner Family; Admitting Provider Student in an Organized Health Care Education/Training Program; Emergency Provider Emergency Medicine; PCP Family Medicine; Visit Provider Student in an Organized Health Care Education/Training Program
DX: R07.9 Chest pain, unspecified (principal); R42 Dizziness and giddiness; E11.9 Type 2 diabetes mellitus without complications; I11.0 Hypertensive heart disease with heart failure; I50.9 Heart failure, unspecified; M70.61 Trochanteric bursitis, right hip; M70.62 Trochanteric bursitis, left hip; N40.1 Benign prostatic hyperplasia with lower urinary tract symptoms; I95.9 Hypotension, unspecified; G47.33 Obstructive sleep apnea (adult) (pediatric); M54.2 Cervicalgia; M54.9 Dorsalgia, unspecified; G89.29 Other chronic pain; T50.905A Adverse effect of unspecified drugs, medicaments and biological substances, initial encounter; R06.02 Shortness of breath; R93.1 Abnormal findings on diagnostic imaging of heart and coronary circulation; F41.9 Anxiety disorder, unspecified; F32.A Depression, unspecified; Z86.73 Personal history of transient ischemic attack (TIA), and cerebral infarction without residual deficits; F17.210 Nicotine dependence, cigarettes, uncomplicated; Z79.82 Long term (current) use of aspirin; Z79.84 Long term (current) use of oral hypoglycemic drugs; Z79.4 Long term (current) use of insulin; Z79.899 Other long term (current) drug therapy; Z88.5 Allergy status to narcotic agent; Z88.8 Allergy status to other drugs, medicaments and biological substances
CPT/HCPCS: 96372; 36415; 71045; 71275; 80053; 82962; 83036; 83735; 83880; 84484; 85025; 85378; 85610; 93005; G0378; J1171; J1650; J2405; J7120; Q9967

== ENCOUNTER 2025-03-14 07:29 | Outpatient (CLI) | payer MEDICARE, SELFPAY ==
--- OUTSIDE RECORDS SUMMARY | 2025-03-12 07:40 | XMS_ITS | Encounter Summary ---
Author Organization Healthcare Address [address] [id number] Care Team Providers Care Computer Aided Design Technician Name Role Phone Ryne Bergman MD Primary Care Provider [phone] Abiola Loyola APRN Unavailable [phone] Aarti Maldonado MD Unavailable [phone] Reason for Referral * Imaging (Routine) - Closed Specialty Diagnoses / Procedures Referred By Kriss colin Referred To Contact Radiology Diagnoses Benign prostatic hyperplasia with urinary frequency Procedures MR Prostate w and wo IV Contrast Aarti Maldonado MD [address] [address] Phone: tel: fax: Referral ID Status Reason Start Date Expiration Date Visits Re quested Visits Authorized [id number] Closed 01/10/2025 07/12/2026 1 1 Reason for Visit * Imaging (Routine) - Closed Specialty Diagnoses / Procedures Referred By Kriss colin Referred To Contact Radiology Diagnoses Benign prostatic hyperplasia with urinary frequency Procedures MR Prostate w and wo IV Contrast Aarti Maldonado MD [address] [address] Phone: tel: fax: Referral ID Status Reason Start Date Expiration Date Visits Re quested Visits Authorized [id number] Closed 01/10/2025 07/12/2026 1 1 Encounter Details Date Type Department Care Team (Latest Contact Info) Description 03/12/2025 7:40 AM EDT - 03/12/2025 8:02 AM EDT Hospital Encounter [facility] [address] [place] [address] Benign prostatic hyperplasia with urinary frequency Discharge [...] PUFF BY MOUTH EVERY 6 HOURS 11/18/2024 BD Pen Needle Rosalia 2nd Gen 32G X 4 MM misc USE 1 PEN SUBCUTANEOUSLY THREE TIMES DAILY WITH INJECTABLE MEDICATION 01/07/2025 diazePAM (Valium) 5 MG tablet Take 1 tablet by mouth every 8 hours as needed for anxiety (for MRI). 1 tablet 01/10/2025 finasteride (Proscar) 5 MG tablet Take 1 tablet (5 mg) by mouth 1 (one) time each day. 04/03/2024 FLUoxetine (PROzac) 20 MG capsule Take 1 capsule (20 mg) by mouth 1 (one) time each day. 11/23/2023 FLUoxetine (PROzac) 40 MG capsule Take 1 capsule (40 mg) by mouth 1 (one) time each day. HumaLOG MIX 75/25 KWIKPEN (75-25) 100 UNIT/ML [...] 1 (one) time each day with breakfast. NIFEdipine CC (Adalat CC) 90 MG 24 hr tablet Take 1 tablet by mouth daily before breakfast. Do not crush, chew, or split. OneTouch Verio test strip USE 1 STRIP TO CHECK GLUCOSE TWICE DAILY DIRECTED 11/02/2024 pioglitazone (Actos) 45 MG tablet Take 1 tablet (45 mg) by mouth 1 (one) time each day. potassium chloride CR (K-Tab) 20 MEQ ER tablet Take 1 tablet (20 mEq) by mouth 1 (one) time each day. 11/23/2023 pramipexole (Mirapex) 1 MG tablet Take 1 tablet (1 mg) by mouth 1 (one) time each day. 08/03/2024 rosuvastatin (Crestor) 10 MG tablet Take 1 tablet (10 mg) by mouth 1 (one) time each day. 11/23/2023 spironolactone (Aldactone) 25 MG tablet Take 1 tablet by mouth daily. tamsulosin (Flomax) 0.4 MG 24 hr capsule Take 1 capsule (0.4 mg) by mouth 2 (two) times a day. 08/26/2024 topiramate (Topamax) 25 MG tablet Take 1 tablet (25 mg) by mouth 2 (two) times a day. valsartan (Diovan) 320 MG tablet Take 1 tablet (320 mg) by mouth 1 (one) time each day. 11/23/2023 documented as of this encounter Plan of Treatment Upcoming Encounters Date Type Department Care Team (Latest Contact Info) Description 03/14/2025 2:45 PM EDT [facility] [address], [address] [place] [address] 03/19/2025 9:15 AM EDT Hospital Encounter [facility] ROOM [address] [place] [address] Aarti Maldonado MD [address] [place] [address] 03/19/2025 9:15 AM EDT - 03/19/2025 11:30 AM EDT Surgery [facility] [address] [place] [address] Aarti Maldonado MD [address] [place] [address] ENUCLEATION, PROSTATE, TRANSURETHRAL, USING HOLMIUM LASER [13299 (CPT )] 04/18/2025 10:30 AM EDT Office Visit Medical Office Building Urology [address] [facility], [address] [place] [address] Aarti Maldonado MD [address] [place] [address] Scheduled Procedures Name Priority Associated Diagnoses Date/Ti me ENUCLEATION, PROSTATE, TRANSURETHRAL, USING HOLMIUM LASER BPH (benign prostatic hyperplasia) 03/19/2025 9:15 AM EDT documented as of this encounter Goals Goal Patient Goal Type Associated Problems Recent Progress Patient-Stated? Author Autogenerat ed Goal Care Plan Autogenerated Problem No [place], Leah documented as of this encounter Procedures Procedure [...] and 800 s/mm2 used to generate calculated h=3194 s/mm2 and ADC map; and an acquired high b =1400 s/mm2; axial 3D dynamic contrast-enhanced [id number] imaging with <10 sec temporal resolution were [...] 50 and 800 s/mm2 used to generatecalculated r=9810 s/mm2 and ADC map; and an acquired high b =1400 s/mm2;axial 3D dynamic contrast-enhanced [id number] imaging with <10 sectemporal resolution were acquired [...] on 03/12/2025 11:10 AM Aarti Maldonado MD IMG MRI PROCEDURES Final Res ult documented in [...] documented as of this encounter Care Teams Computer Aided Design Technician Relationship Specialty Start Date End Date Ryne Bergman MD [address] [place] [address] PCP - General 04/21/24 Abiola Loyola APRN [address] [facility] [place] [address] Nurse Practitioner Urology 10/30/24 Aarti Maldonado MD [address] [facility] [place] [address] Surgeon Urology 01/10/25 documented as of this encounter
--- OUTSIDE RECORDS SUMMARY | 2025-03-12 08:03 | XMS_ITS | Encounter Summary ---
Author Organization [facility] Address [address] [place] [address] Care Team Providers Care Shoe Caser Name Role Phone Ryne Bergman MD Primary Care Provider [phone] Abiola Loyola APRN Unavailable [phone] Aarti Maldonado MD Unavailable Encounter Details Date Type Department Care Team (Latest Contact Info) Description 03/12/2025 8:03 AM EDT - 03/12/2025 11:59 PM EDT Hospital Encounter [facility] Radiology [address] [place] [address] Benign prostatic hyperplasia with urinary frequency Discharge [...] Description 03/14/2025 2:45 PM EDT [facility] [address] [place] [address] 03/19/2025 9:15 AM EDT Hospital Encounter [facility] A OPERATING ROOM [address] [place] [address] Aarti Maldonado MD [address] [place] [address] 03/19/2025 9:15 AM EDT - 03/19/2025 11:30 AM EDT Surgery [facility] OPERATING ROOM [address] [place] [address] Aarti Maldonado MD [address] [address] ENUCLEATION, PROSTATE, TRANSURETHRAL, USING HOLMIUM LASER [[id number] (CPT )] 04/18/2025 10:30 AM EDT Office Visit Medical Office Building Urology [facility], [address] [place] [address] Aarti Maldonado MD [address] [address] Scheduled Procedures Name Priority Associated Diagnoses Date/Ti me ENUCLEATION, PROSTATE, TRANSURETHRAL, USING HOLMIUM LASER BPH (benign prostatic hyperplasia) 03/19/2025 9:15 AM EDT documented as of this encounter Goals Goal Patient Goal Type Associated Problems Recent Progress Patient-Stated? Author Autogenerat ed Goal Care Plan Autogenerated Problem No Anika Hackett documented as of this encounter Procedures Procedure [...] 03/13/2025 5:24 PM Final report signed by Dwason Sheppard MD on 03/13/2025 5:25 PM Narrative [...] documented as of this encounter Care Teams Shoe Caser Relationship Specialty Start Date End Date Ryne Bergman MD [address] [place], [place] [id number] PCP - General 04/21/24 Abiola Loyola APRN [address] [address] Nurse Practitioner Urology 10/30/24 Aarti Maldonado MD [address] [address] Surgeon Urology 01/10/25 documented as of this encounter
--- NOTE | 2025-03-14 | CA_ITS ---
APPROVED REPORT Exam: Pharmacologic Technologist: Juli Beck Ht: 5 ft 10 in Wt: 228 lbs BSA: 2.21 m2 Medical History Medications: albuterol, aspirin, jardiance, proscar, fluoxetine, insulin, metformin er, nifedipine er, metorpolol succinate er, actos, pramipexole, rosuvastatin, spironolactone, tamsulosin, topamax, valsartan Stress Test Details Test: Lexiscan Reason for pharmacologic stress test: physical limitation. HR Resting HR: 58 bpm Max Heart Rate (APMHR): 154.147889 bpm Max HR Achieved: 66 bpm Target HR (85% APMHR): 130.358371 bpm % of APMHR: 42.86 Recovery HR: 64 bpm BP Resting BP: 152.0/68.0 mmHg Max BP: 135.0/62.0 mmHg Recovery BP: 120.0/67.0 mmHg ECG Stress ECG Conclusion Symptoms: SOB with Lexiscan. Arrhythmias/Ectopy: none. ST-T Changes: Unremarkable with Lexiscan. Electronically signed by : Alejandra Lopes MD 03/16/2025 15:36:38
--- NOTE | 2025-03-14 07:30 | NM_ITS ---
APPROVED REPORT Exam: Nuclear Stress Test Indication: Chest pain, SOB, HTN, DM, Tobacco use Patient Location: Outpatient Stress Tech: Juli Lomas [place] Tech:Nilsa Warren, ARRT, RT (R)(N) Ht: 5 ft 10 in Wt: 230 lbs HR: 57 bpm BP: 152/68 mmHg BSA: 2.21 m2 TID: 1.17 BMI: 32.9 History: Chest pain, SOB, HTN, DM, Tobacco use Procedure: Patient received 0.4 mg of intravenous Lexiscan, resting heart rate 57 bpm, resting blood pressure 152/68 mmHg, with Lexiscan maximum heart rate achieved was 71 bpm which is % of the maximum predicted heart rate and blood pressure was 135/62 mmHg. With Lexiscan, patient denied any complaint of chest pain. Cardiac Stress and Resting SPECT Images: Cardiac Stress and Resting SPECT images were obtained using technetium 99m Myoview 28.7 mCi stress and 10.55 mCi at rest. Technically difficult study due to significant soft tissue overlap with the cardiac borders. This may affect diagnostic interpretation of the study findings. Resting and stress imaging in supine and prone positions demonstrate a medium sized, moderate, predominantly fixed perfusion defect in the anterior and anterolateral LV miller. There is a small region of reversibility towards the mid anterior LV wall. Gated imaging demonstrates normal global LV systolic function. LVEF is calculated at 58%. Conclusion: Medium sized, moderate, predominantly fixed perfusion defect in the anterior and anterolateral LV miller. There is a small region of reversibility towards the mid anterior LV wall. Findings are suggestive of partial reversible ischemia. Gated imaging demonstrates normal global LV systolic function. LVEF is calculated at 58%. Electronically signed by : Alejandra Lopes MD 03/14/2025 23:45:11
--- OUTSIDE RECORDS SUMMARY | 2025-03-14 07:32 | XMS_ITS | Encounter Summary ---
Author Organization Healthcare Address [address] [place] [address] Care Team Providers Care Anesthesiology Technologist Name Role Phone Ryne Bergman MD Primary Care Provider [phone] Abiola Loyola GLOVE EXAMINER Unavailable [phone] Aarti Maldonado MD Unavailable [phone] Encounter Details Date Type Department Care Team (Late st Contact Info) Description 10/30/2019 Orders Only External Location [address] [place] [address] Provider, External Social History Tobacco [...] Description 03/14/2025 2:45 PM EDT Pre-[facility] Testing [facility] [address] [place] [address] 03/19/2025 9:15 AM EDT Hospital Encounter [facility] [address] [place] [address] Aarti Maldonado MD [address] [place] [address] 03/19/2025 9:15 AM EDT - 03/19/2025 11:30 AM EDT Surgery [facility] [address] [place] [address] Aarti Maldonado MD [address] [place] [address] ENUCLEATION, PROSTATE, TRANSURETHRAL, USING HOLMIUM LASER [[id number] (CPT )] 04/18/2025 10:30 AM EDT Office Visit Medical Office Building Urology [address] [facility], [address] [place] [address] Aarti Maldonado MD [address] [address] Scheduled Procedures Name Priority Associated [...] Region Laterality Modality Computed Tomogra phy 10/30/2019 2:3 5 PM EST us External Provider IMG CT PROCEDURES Final Result documented in this encounter Visit Diagnoses Not on filedocumented in this encounter Care Teams Anesthesiology Technologist Relationship Specialty Start Date End Date Ryne Bergman MD [address] [place] [address] PCP - General 04/21/24 Abiola Loyola APRN [address] [place] [address] Nurse Practitioner Urology 10/30/24 Aarti Maldonado MD [address] [place] [address] Surgeon Urology 01/10/25 documented as of this encounter
--- OUTSIDE RECORDS SUMMARY | 2025-03-14 07:32 | XMS_ITS | Encounter Summary ---
Author Organization [facility] Address [address] [place] [address] Care Team Providers Care Degreaser Operator Name Role Phone Ryne Bergman MD Primary Care Provider [phone] Abiola Loyola FINGERPRINT CLASSIFIER Unavailable [phone] Aarti Maldonado MD Unavailable [phone] Encounter Details Date Type Department Care Team (Latest Contact Info) Description 03/12/2025 Travel Social History Tobacco Use Types Packs/Day [...] Description 03/14/2025 2:45 PM EDT [facility] Testing [place] [facility] [address] [place] [address] 03/19/2025 9:15 AM EDT Hospital Encounter [facility] A OPERATING ROOM [address] [place] [address] Aarti Maldonado MD [address] [facility] [address] [place] [address] 03/19/2025 9:15 AM EDT - 03/19/2025 11:30 AM EDT Surgery [facility]PERATING RO[facility] [address] [place] [address] Aarti Maldonado MD [address] [address] ENUCLEATION, PROSTATE, TRANSURETHRAL, USING HOLMIUM LASER [[id number] (CPT )] 04/18/2025 10:30 AM EDT Office Visit Medical Office Building Urology [address] [facility], [address] [place] [address] Aarti Maldonado MD [address] [address] Scheduled Procedures Name Priority Associated [...] documented as of this encounter Care Teams Degreaser Operator Relationship Specialty Start Date End Date Ryne Bergman MD [address] [facility] [place] [address] PCP - General 04/21/24 Abiola Loyola APRN [address] [place] [address] Nurse Practitioner Urology 10/30/24 Aarti Maldonado MD [address] [place] [address] Surgeon Urology 01/10/25 documented as of this encounter
--- OUTSIDE RECORDS SUMMARY | 2025-03-14 07:32 | XMS_ITS | Encounter Summary ---
Author Organization [facility] Address [address] [place] [address] Care Team Providers Care Fruit Harvester Name Role Phone Ryne Bergman MD Primary Care Provider [phone] Abiola Loyola COUNT ROOM CLERK Unavailable [phone] Aarti Maldonado MD Unavailable [phone] Encounter Details Date Type Department Care Team (Late st Contact Info) Description 02/13/[address] Clinic Urology [address] [place] [address] Aarti Maldonado MD [address] [place] [address] Social History Tobacco Use Types [...] encounter Miscellaneous Notes * Telephone Encounter - Ziggy Mohrn S - 02/13/2025 10:31 AM EDT Spoke with patient, notified him surgery location changed to [facility] on 03/19 documented in this encounter Plan of Treatment Upcoming Encounters Date Type Department Care Team (Latest Contact Info) Description 03/14/2025 2:45 PM EDT Pre-Admission Testing [facility] [address] [place] [address] 03/19/2025 9:15 AM EDT Hospital Encounter [facility] OPERATING ROOM [address] [place] [address] Aarti Maldonado MD [address] [address] 03/19/2025 9:15 AM EDT - 03/19/2025 11:30 AM EDT Surgery [facility]PERATING ROOM [address] [place] [address] Aarti Maldonado MD [address] [address] ENUCLEATION, PROSTATE, TRANSURETHRAL, USING HOLMIUM LASER [[id number] (CPT )] 04/18/2025 10:30 AM EDT Office Visit Medical Office Building Urology [facility] [address] [facility], [address] [place] [address] Aarti Maldonado MD [address] [address] Scheduled Procedures Name Priority Associated Diagnoses Date/Ti [...] documented as of this encounter Care Teams Fruit Harvester Relationship Specialty Start Date End Date Ryne Bergman MD [address] [place] [address] PCP - General 04/21/24 Abiola Loyola APRN [address] [place] [address] Nurse Practitioner Urology 10/30/24 Aarti Maldonado MD [address] [place] [address] Surgeon Urology 01/10/25 documented as of this encounter
--- OUTSIDE RECORDS SUMMARY | 2025-03-14 07:32 | XMS_ITS | Encounter Summary ---
Author Organization [facility] Address [address] [place] [address] Care Team Providers Care Chlorine Cells Operator Name Role Phone Ryne Bergman MD Primary Care Provider [phone] Abiola Loyola FOOD SERVICE REPRESENTATIVE Unavailable [phone] Aarti Maldonado MD Unavailable [phone] Encounter Details Date Type Department Care Team (Late st Contact Info) Description 01/15/2025 Telephone [place] [facility] [address] [place] [address] Aarti Maldonado MD [address] [place] [address] Social History Tobacco Use Types [...] and spoke with Cara the pharmacist at [facility] and let her know that it was only 1Valium for him to take prior to the MRI documented in this encounter Plan of Treatment Upcoming Encounters Date Type Department Care Team (Latest Contact Info) Description 03/14/2025 2:45 PM EDT [place] Testing [place] [facility] [address] [place] [address] 03/19/2025 9:15 AM EDT Hospital Encounter [facility]PERATING ROOM [address] [place] [address] Aarti Maldonado MD [address] [address] 03/19/2025 9:15 AM EDT - 03/19/2025 11:30 AM EDT Surgery [facility]ATING RO[facility] [address] [place] [address] Aarti Maldonado MD [address] [address] ENUCLEATION, PROSTATE, TRANSURETHRAL, USING HOLMIUM LASER [[id number] (CPT )] 04/18/2025 10:30 AM EDT Office Visit Medical Office Building Urology [facility] [address] [facility], [address] [place] [address] Aarti Maldonado MD [address] [address] Scheduled Procedures Name Priority Associated [...] documented as of this encounter Care Teams Chlorine Cells Operator Relationship Specialty Start Date End Date Ryne Bergman MD [address] [place] [address] PCP - General 04/21/24 Abiola Loyola APRN [address] [facility] [place] [address] Nurse Practitioner Urology 10/30/24 Aarti Maldonado MD [address] [facility] [place] [address] Surgeon Urology 01/10/25 documented as of this encounter
--- OUTSIDE RECORDS SUMMARY | 2025-03-14 07:32 | XMS_ITS | Clinical Summary ---
Author Organization [facility] Address [address] [place] [address] Care Team Providers Care Applied Behavior Specialist Name Role Phone Ryne Bergman MD Primary Care Provider [phone] Abiola Loyola APRN Unavailable [phone] Aarti Maldonado MD Unavailable Allergies Active Allergy Reactions Criticality Noted Date [...] Encounters Date Type Department Care Team Description 03/12/2025 8:03 AM EDT - 03/12/2025 11:59 PM EDT Hospital Encounter [facility] [address] [place] [address] Benign prostatic hyperplasia with urinary frequency Discharge Disposition: Home or Self Care 03/12/2025 7:40 AM EDT - 03/12/2025 8:02 AM EDT Hospital Encounter [facility] [address] [place] [address] Benign prostatic hyperplasia with urinary frequency Discharge Disposition: Home or Self Care 03/12/2025 Results Follow-Up Medical Office Building Urology [address] [facility], [address] [place] [address] Aarti Maldonado MD 03/12/2025 Telephone [facility] Urology [address], [address] [place] [phone] Aarti Maldonado MD 03/09/25 Final Urine culture results 03/12/2025 Travel 03/09/2025 Orders Only [facility] Urology [address], [address] [place] [phone] Aarti Maldonado MD 03/09/2025 Telephone [facility] Urology [address], [address] [place] [phone] Aarti Maldonado MD HCN Clinical Concern/Question 03/08/2025 Orders Only [facility] Urology [address], [address] [place] [address] Aarti Maldonado MD Microhematuria (Primary Dx) 03/08/2025 Telephone [facility] Urology [facility] [address], [address] [place] [phone] Aarti Maldonado MD 03/05/25 Urine culture results from [facility] 02/13/2025 Telephone [facility] Urology [facility] [address], [address] [place] [phone] Aarti Maldonado MD 02/13/2025 Telephone [facility] Urology [address] [place] [address], [address] [place] [address] Aarti Maldonado MD 01/15/[address], [address] [place] [address] Aarti Maldonado MD 01/12/2025 Telephone [facility] Urolog[address], [address] [place] [phone] Aarti Maldonado MD 01/10/2025 9:45 AM EDT Office Visit [facility] [address], [address] [place] [address] Aarti Maldonado MD Benign prostatic hyperplasia with urinary frequency (Primary Dx); Microhematuria 01/10/2025 Orders Only [facility] [address], [address] [place] [address] Aarti Maldonado MD 01/10/2025 Telephone [facility] [address] [address] Aarti Maldonado MD 01/10/2025 Travel 01/09/2025 Travel from Last 3 Months Immunizations Immunization Administration Dates Next Due Hep A, Adult 07/30/2018 Influenza, injectable, quadr ivalent, preservative free 08/24/2023,07/28/2022,08/23/2019,07/30 Pneumococcal 20-edinson Conj Vaccine 11/23/2023 Pneumococcal Polysaccharide PPV23 07/25/2018 Family History Medical History Relation Name Comments Cancer Father Nuiqsutbailey Castrejon Hypertension Mother Tawnya Castrejon Kidney disease Mother Tawnya Castrejon Relation Name Status Comments Father [place] Cash Mother Tawnya Castrejon Social History Tobacco [...] Oxygen Concentration - - Weight 105 kg (231 lb 4.2 oz) 03/12/2025 7:44 AM EDT Height 175.3 cm (5' 9 ) 03/12/2025 7:44 AM EDT Body Mass Index 34.15 03/12/2025 7:44 AM EDT Plan of Treatment Upcoming Encounters Date Type Department Care Team (Latest Contact Info) Description 03/14/2025 2:45 PM EDT Pre-Admission Testing [place] [facility] [address], 1st [place] [address] 03/19/2025 9:15 AM EDT Hospital Encounter [facility] OPERATING ROOM [address] [place] [address] Aarti Maldonado MD [address] [address] 03/19/2025 9:15 AM EDT - 03/19/2025 11:30 AM EDT Surgery [facility] OPERATING ROOM [address] [place] [address] Aarti Maldonado MD [address] [address] ENUCLEATION, PROSTATE, TRANSURETHRAL, USING HOLMIUM LASER [[id number] (CPT )] 04/18/2025 10:30 AM EDT Office Visit Medical Office Building Urology [facility] [address] [facility], [address] [place] [address] Aarti Maldonado MD [address] [address] Scheduled Procedures Name Priority Associated Diagnoses Date/Ti me ENUCLEATION, PROSTATE, TRANSURETHRAL, USING HOLMIUM LASER BPH (benign prostatic hyperplasia) 03/19/2025 9:15 AM EDT Health Maintenance Due Date Last Done Comments [facility]-Hepatitis C Screening 1960 [facility]icare Annual Wellness (AWV) 1960 [facility]-Infant/Child/Adol SDOH Screenings [...] 2023 [facility]-Diabetes: Hemoglobin A1C 05/22/2024 11/23/2023, 07/28/2022 [id number] Vaccine ( season) 2024 03/07/2021, 02/07/2021 [facility]-Influenza Vaccine (Season [...] EDT Benign prostatic hyperplasia with urinary frequency XR EYE FOREIGN BODY Routine 03/12/2025 8 :18 AM EDT Benign prostatic hyperplasia with urinary frequency CYSTO- UROLOGY Routine 01/10/2025 10:30 PM EDT Microhematuria CREATININE, PLASMA STAT 01/10/2025 11 :55 AM EDT Benign prostatic hyperplasia with urinary frequency POC US BLADDER SCAN FOR VOLUME Routine 01/10/2025 10:21 AM EDT Microhematuria Benign prostatic hyperplasia with urinary frequency POCT URINALYSIS DIPSTICK Routine 01/10/2025 10:01 AM EDT from Last 3 Months Results * MR Prostate w and wo [...] and 800 s/mm2 used to generate calculated w=9934 s/mm2 and ADC map; and an acquired high b =1400 s/mm2; axial 3D dynamic contrast-enhanced X5zhwxuact imaging with <10 sec temporal resolution were [...] 50 and 800 s/mm2 used to generatecalculated b=0159 s/mm2 and ADC map; and an acquired high b =1400 s/mm2;axial 3D dynamic contrast-enhanced M2baexxeov imaging with <10 sectemporal resolution were acquired [...] 03/12/2025 11:10 AM us Aarti Maldonado MD IMG MRI PROCEDURES Final Res ult * XR Eye Foreign Body (03/12/2025 8:18 [...] Fuller MD IMG XR PROCEDURES Final Result * CYSTO- UROLOGY (01/10/2025 10:30 PM EDT) Narrative Aarti Maldonado MD - 01/10/2025 10:30 PM EDT Aarti Maldonado MD 01/10/2025 12:34 PM Cysto Date/Time: 01/10/2025 10:30 PM Performed by: Aarti Maldonado MD Authorized by: Aarti Maldonado MD Procedure discussed: discussed risks, benefits and alternatives Paper Cutter Operator present: no Timeout: timeout called immediately prior to procedure Prep: patient was prepped and draped in usual sterile fashion Prep type: Betadine Anesthesia: local anesthesia Procedure Details Cystoscope type: flexible Cystoscopy route: transurethral Cystoscopy location: [place] bladder Irrigation used: saline Position: supine Urethra [...] - 1.20 mg/dL 01/10/2025 1:54 PM EDT [facility] eGFRcr 96.2 mL/min/1.7 3m*2 01/10/2025 1:54 PM EDT [facility] Comment:Reported eGFRcr in m L/min/1.73m2 is based the CKD-EPI 2020 equation that does not use a race coefficient. Blood Venous blood specimen / Unknown Venipuncture / Unknown 01/10/2025 11:55 AM EDT 01/10/2025 11:55 AM EDT Aarti Maldonado MD LAB BLOOD ORDERABLES Final R esult [facility] [address] [place] [address] * POC US Bladder Volume (01/10/2025 10:21 AM EDT) Urine, Volume 76 mL IMAGING Anatomical Region Laterality Modality Other Aarti Maldonado MD IMG POINT OF CARE ULTRASOUND Final Result * (ABNORMAL) POCT URINALYSIS DIPSTICK (01/10/2025 10:01 AM EDT) POCT Urine Color Yellow 01/10/2025 10:03 AM EDT [facility] POCT Urine Clarity Clear 01/10/2025 10:03 AM EDT [facility] POCT Urine Glucose >=1000(A) Negative mg/dL 01/10/2025 10:03 AM EDT [facility] POCT Urine Bilirubin Negative Negative mg/dL 01/10/2025 10:03 AM EDT [facility] POCT Urine Ketones Negative Negative mg/dL 01/10/2025 10:03 AM EDT [facility] POCT Urine Specific [place] 1.020 1.005 - 1.030 01/10/2025 10:03 AM EDT [facility] POCT Urine Blood Negative Negative 01/10/2025 10:03 AM EDT [facility] POCT pH, Urine 5.5 5.0 - 8.0 01/10/2025 10:03 AM EDT [facility] POCT Protein, Urine Negative Negative mg/dL 01/10/2025 10:03 AM EDT [facility] POCT Urobilinogen, Urine 0.2 0.2, 1.0 EU/dL 01/10/2025 10:03 AM EDT [facility] POCT Nitrite, Urine Negative Negative 01/10/2025 10:03 AM EDT [facility] POCT Urine Leukocyte Esterase Negative Negative 01/10/2025 10:03 AM EDT [facility] Urine 01/10/2025 10:0 1 AM EDT 01/10/2025 10:03 AM EDT us Aarti Maldonado MD LAB POINT OF CARE TE ST DOCKED DEVICE UNSOLICITED RESULTS Final Result Performing Organization Address City/State/[facility] de Phone Number [facility] [address], [place] from Last 3 Months Additional Health Concerns Active Problems Noted Date Diagnosed Date Autogenerated Problem 02/13/2025 Insurance [facility]LY [facility]1983 MEDICARE Care Teams Applied Behavior Specialist Relationship Specialty Start Date End Date Ryne Bergman MD [address] [place] [address] PCP - General 04/21/24 Abiola Loyola APRN [address] [place] [address] Nurse Practitioner Urology 10/30/24 Aarti Maldonado MD [address] [place] [address] Surgeon Urology 01/10/25
--- OUTSIDE RECORDS SUMMARY | 2025-03-14 07:32 | XMS_ITS | Encounter Summary ---
Author Organization Healthcare Address [address] [place] [address] Care Team Providers Care Salesperson Floor Coverings Name Role Phone Ryne Bergman MD Primary Care Provider [phone] Abiola Loyola MACHINE TOOL OPERATOR Unavailable [phone] Aarti Maldonado MD Unavailable [phone] Encounter Details Date Type Department Care Team (Late st Contact Info) Description 02/10/2024 Orders Only External Location [address] [place] [address] Nicole Bernstein, DO [address] [place] [address] Social History Tobacco Use Types [...] Description 03/14/2025 2:45 PM EDT Pre-[place]mission Testing [place] [facility] [address], [address] [place] [address] 03/19/2025 9:15 AM EDT Hospital Encounter [facility] OPERATING ROOM [address] [place] [address] Aarti Maldonado MD [address] [place] [address] 03/19/2025 9:15 AM EDT - 03/19/2025 11:30 AM EDT Surgery [facility] A OPERATING ROOM [address] [place] [address] Aarti Maldonado MD [address] [address] ENUCLEATION, PROSTATE, TRANSURETHRAL, USING HOLMIUM LASER [[id number] (CPT )] 04/18/2025 10:30 AM EDT Office Visit Medical Office Building Urology [address] [facility], [address] [place] [address] Aarti Maldonado MD [address] [address] Scheduled Procedures Name Priority Associated [...] on filedocumented in this encounter Care Teams Salesperson Floor Coverings Relationship Specialty Start Date End Date Ryne Bergman MD [address] [facility] [place] [address] PCP - General 04/21/24 Abiola Loyola APRN [address] [address] Nurse Practitioner Urology 10/30/24 Aarti Maldonado MD [address] [address] Surgeon Urology 01/10/25 documented as of this encounter
--- OUTSIDE RECORDS SUMMARY | 2025-03-14 07:32 | XMS_ITS | Encounter Summary ---
Author Organization [facility] Address [address] [place] [address] Care Team Providers Care Banquet Pilot Name Role Phone Ryne Bergman MD Primary Care Provider [phone] Abiola Loyola PLACEMENT DIRECTOR Unavailable [phone] Aarti Maldonado MD Unavailable [phone] Reason for Visit * Reason Onset Date Comments 03/09/25 Final Urine culture results 03/12/2025 Encounter Details Date Type Department Care Team (Late st Contact Info) Description 03/12/2025 Telephone [place] [facility] [address], 2nd [place] [address] Aarti Maldonado MD [address] [place] [address] 03/09/25 Final Urine culture results Social History Tobacco Use Types Packs/Day Years [...] encounter Miscellaneous Notes * Telephone Encounter - Deangelo, Dayanna D - 03/12/2025 10:32 AM EDT 03/09/25 Final Urine culture results were received and have been uploaded to media. Thank you. documented in this encounter Plan of Treatment Upcoming Encounters Date Type Department Care Team (Latest Contact Info) Description 03/14/2025 2:45 PM EDT Pre-[facility]mission Testing [place] [facility] [address], [address] [place] [address] 03/19/2025 9:15 AM EDT Hospital Encounter [facility] A OPERATING ROOM [address] [place] [address] Aarti Maldonado MD [address] [address] 03/19/2025 9:15 AM EDT - 03/19/2025 11:30 AM EDT Surgery [facility] A OPERATING ROOM [address] [place] [address] Aarti Maldonado MD [address] [address] ENUCLEATION, PROSTATE, TRANSURETHRAL, USING HOLMIUM LASER [[id number] (CPT )] 04/18/2025 10:30 AM EDT Office Visit Medical Office Building Urology [facility] [address] [facility], [address] [place] [address] Aarti Maldonado MD [address] [address] Scheduled Procedures Name Priority Associated Diagnoses Date/Ti [...] documented as of this encounter Care Teams Banquet Pilot Relationship Specialty Start Date End Date Ryne Bergman MD [address] [place] [address] PCP - General 04/21/24 Abiola Loyola APRN [address] [address] Nurse Practitioner Urology 10/30/24 Aarti Maldonado MD [address] [facility] [place] [address] Surgeon Urology 01/10/25 documented as of this encounter
--- OUTSIDE RECORDS SUMMARY | 2025-03-14 07:32 | XMS_ITS | Encounter Summary ---
Author Organization [facility] Address [address] [place] [address] Care Team Providers Care Supervisor Keymodule Assembly Name Role Phone Ryne Bergman MD Primary Care Provider [phone] Abiola Loyola TONGUER Unavailable [phone] Aarti Maldonado MD Unavailable [phone] Reason for Visit * Reason Onset Date Comments HCN Clinical Concern/Question 03/09/2025 Encounter Details Date Type Department Care Team (Late st Contact Info) Description 03/09/2025 Telephone [facility] [address], [address] [place] [address] Aarti Maldonado MD [address] [place] [address] HCN Clinical Concern/Question Social History [...] optimal time of day to reach caller: [phone] Note: Please do not reply to this message. Follow-up communication and further actions as a result of this message need to be communicated with the patient directly, if the patient is not active onMyChart. If the patient is active on MyChart, they will receive notification of the communication/outcome via Retention Education. documented in this encounter Plan of Treatment Upcoming Encounters Date Type Department Care Team (Latest Contact Info) Description 03/14/2025 2:45 PM EDT Pre-Admission Testing [facility] Pre-op Clinic [address], [address] [place] [address] 03/19/2025 9:15 AM EDT Hospital Encounter [facility] A OPERATING ROOM [address] [place] [address] Aarti Maldonado MD [address] [address] 03/19/2025 9:15 AM EDT - 03/19/2025 11:30 AM EDT Surgery [facility] A OPERATING ROOM [address] [place] [address] Aarti Maldonado MD [address] [address] ENUCLEATION, PROSTATE, TRANSURETHRAL, USING HOLMIUM LASER [[id number] (CPT )] 04/18/2025 10:30 AM EDT Office Visit Medical Office Building Urology [address] [place] [address], [address] [place] [address] Aarti Maldonado MD [address] [place] [address] Scheduled Procedures Name Priority Associated [...] documented as of this encounter Care Teams Supervisor Keymodule Assembly Relationship Specialty Start Date End Date Ryne Bergman MD [address] [place] [id number] PCP - General 04/21/24 Abiola Loyola APRN [address] [place] [address] Nurse Practitioner Urology 10/30/24 Aarti Maldonado MD [address] [place] [address] Surgeon Urology 01/10/25 documented as of this encounter
--- OUTSIDE RECORDS SUMMARY | 2025-03-14 07:32 | XMS_ITS | Encounter Summary ---
Author Organization [facility] Address [address] [place] [address] Care Team Providers Care Carding Supervisor Name Role Phone Ryne Bergman MD Primary Care Provider Abiola Loyola APRN Unavailable [phone] Aarti Maldonado MD Unavailable [phone] Encounter Details Date Type Department Care Team (Late st Contact Info) Description 02/13/2025 Telephone [place] [facility] [address], [address] [place] [address] Aarti Maldonado MD [address] [place] [address] Social History Tobacco Use Types [...] Encounter - Ziggy Mohrn S - 02/13/2025 10:04 AM EDT Left message with patient to return call on direct line to notify him his surgery location has changed. documented in this encounter Plan of Treatment Upcoming Encounters Date Type Department Care Team (Latest Contact Info) Description 03/14/2025 2:45 PM EDT Pre-Admission Testing [facility] Pre-op Clinic [address], [address] [place] [address] 03/19/2025 9:15 AM EDT Hospital Encounter P[facility] A OPERATING ROOM [address] [place] [address] Aarti Maldonado MD [address] [address] 03/19/2025 9:15 AM EDT - 03/19/2025 11:30 AM EDT Surgery PAV A OPERATING ROOM [address] [place] [address] Aarti Maldonado MD [address] [address] ENUCLEATION, PROSTATE, TRANSURETHRAL, USING HOLMIUM LASER [[id number] (CPT )] 04/18/2025 10:30 AM EDT Office Visit Medical Office Building Urology [facility] [address] [facility], [address] [place] [address] Aarti Maldonado MD [address] [address] Scheduled Procedures Name Priority Associated Diagnoses Date/Ti [...] documented as of this encounter Care Teams Carding Supervisor Relationship Specialty Start Date End Date Ryne Bergman MD [address] [place] [address] PCP - General 04/21/24 Abiola Loyola APRN [address] [place] [address] Nurse Practitioner Urology 10/30/24 Aarti Maldonado MD [address] [place] [address] Surgeon Urology 01/10/25 documented as of this encounter
--- OUTSIDE RECORDS SUMMARY | 2025-03-14 07:32 | XMS_ITS | Encounter Summary ---
Author Organization [facility] Address [address] [place] [address] Care Team Providers Care Outpatient Services Director Name Role Phone Ryne Bergman MD Primary Care Provider [phone] Abiola Loyola GASOLINE DRAGLINE OPERATOR Unavailable [phone] Aarti Maldonado MD Unavailable [phone] Encounter Details Date Type Department Care Team ([facility] Contact Info) Description 03/12/2025 Results Follow-Up Medical Office Building Urology [address] [facility], [address] [place] [address] Aarti Maldonado MD [address] [place] [address] Social History Tobacco Use Types [...] Testing [place] [facility] [address], [address] [place] [address] 03/19/2025 9:15 AM EDT Hospital Encounter PAV A OPERATING ROOM [address] [place] [address] Aarti Maldonado MD [address] [address] 03/19/2025 9:15 AM EDT - 03/19/2025 11:30 AM EDT Surgery PAV A OPERATING ROOM [address] [place] [address] Aarti Maldonado MD [address] [address] ENUCLEATION, PROSTATE, TRANSURETHRAL, USING HOLMIUM LASER [[id number] (CPT )] 04/18/2025 10:30 AM EDT Office Visit Medical Office Building Urology [address] [facility], [address] [place] [address] Aarti Maldonado MD [address] [address] Scheduled Procedures Name Priority Associated Diagnoses Date/Ti [...] documented as of this encounter Care Teams Outpatient Services Director Relationship Specialty Start Date End Date Ryne Bergman MD [address] [place] [address] PCP - General 04/21/24 Abiola Loyola APRN [address] [place] [address] Nurse Practitioner Urology 10/30/24 Aarti Maldonado MD [address] [place] [address] Surgeon Urology 01/10/25 documented as of this encounter
--- OUTSIDE RECORDS SUMMARY | 2025-03-14 07:32 | XMS_ITS | Encounter Summary ---
Author Organization [facility] Address [address] [place] [address] Care Team Providers Care Shuttle Veneering Supervisor Name Role Phone Ryne Bergman MD Primary Care Provider [phone] Abiola Loyola CELL OPERATOR Unavailable [phone] Aarti Maldonado MD Unavailable [phone] Encounter Details Date Type Department Care Team (Late st Contact Info) Description 03/09/2025 Orders Only [place] [facility] U[facility] [address], [address] [place] [address] Aarti Maldonado MD [address] [place] [address] Social History Tobacco Use Types [...] Description 03/14/2025 2:45 PM EDT Pre-Admission Testing [place] [facility] [address], 1[address] [place] [address] 03/19/2025 9:15 AM EDT Hospital Encounter PAV A OPERATING ROOM [address] [place] [address] Aarti Maldonado MD [address] [address] 03/19/2025 9:15 AM EDT - 03/19/2025 11:30 AM EDT Surgery PAV A OPERATING ROOM [address] [place] [address] Aarti Maldonado MD [address] [address] ENUCLEATION, PROSTATE, TRANSURETHRAL, USING HOLMIUM LASER [[id number] (CPT )] 04/18/2025 10:30 AM EDT Office Visit Medical Office Building Urology [facility] [address] [facility], [address] [place] [address] Aarti Maldonado MD [address] [address] Scheduled Procedures Name Priority Associated Diagnoses Date/Ti [...] documented as of this encounter Care Teams Shuttle Veneering Supervisor Relationship Specialty Start Date End Date Ryne Bergman MD [address] [place] [address] PCP - General 04/21/24 Abiola Loyola APRN [address] [place] [address] Nurse Practitioner Urology 10/30/24 Aarti Maldonado MD [address] [place] [address] Surgeon Urology 01/10/25 documented as of this encounter
--- OUTSIDE RECORDS SUMMARY | 2025-03-14 07:32 | XMS_ITS | Encounter Summary ---
Author Organization [facility] Address [address] [place] [address] Care Team Providers Care Automation Control Technician Name Role Phone Ryne Bergman MD Primary Care Provider [phone] Abiola Loyola RADIOLOGY EQUIPMENT SERVICER Unavailable [phone] Aarti Maldonado MD Unavailable [phone] Reason for Visit * Reason Onset Date Comments 03/05/25 Urine culture results from [facility] 03/08/2025 Encounter Details Date Type Department Care Team (Late st Contact Info) Description 03/08/2025 Telephone [facility] [address], [address] [place] [address] Aarti Maldonado MD [address] [place] [address] 03/05/25 Urine culture results from [facility] Social History Tobacco Use Types [...] AM EDT 03/05/25 Urine culture results from [facility] and have been uploaded to media. Thank you. documented in this encounter Plan of Treatment Upcoming Encounters Date Type Department Care Team (Latest Contact Info) Description 03/14/2025 2:45 PM EDT Pre-Admission Testing [facility] Pre[facility]op Clinic [address], [address] [place] [address] 03/19/2025 9:15 AM EDT Hospital Encounter [facility] [address] [place] [address] Aarti Maldonado MD [address] [address] 03/19/2025 9:15 AM EDT - 03/19/2025 11:30 AM EDT Surgery [facility] [address] [place] [address] Aarti Maldonado MD [address] [address] ENUCLEATION, PROSTATE, TRANSURETHRAL, USING HOLMIUM LASER [[id number] (CPT )] 04/18/2025 10:30 AM EDT Office Visit Medical Office Building Urology [address] [place] [address], [address] [place] [address] Aarti Maldonado MD [address] [place] [address] Scheduled Procedures Name Priority Associated [...] documented as of this encounter Care Teams Automation Control Technician Relationship Specialty Start Date End Date Ryne Bergman MD [address] [place] [id number] PCP - General 04/21/24 Abiola Loyola APRN [address] [place] [address] Nurse Practitioner Urology 10/30/24 Aarti Maldonado MD [address] [place] [address] Surgeon Urology 01/10/25 documented as of this encounter
--- OUTSIDE RECORDS SUMMARY | 2025-03-14 07:32 | XMS_ITS | Encounter Summary ---
Author Organization [facility] Address [address] [place] [address] Care Team Providers Care Miniature Set Constructor Name Role Phone Ryne Bergman MD Primary Care Provider [phone] Abiola Loyola SQUEEZER OPERATOR Unavailable [phone] Aarti Maldonado MD Unavailable [phone] Encounter Details Date Type Department Care Team (Late st Contact Info) Description 03/08/2025 Orders Only [facility] U[facility] [address], [address] [place] [address] Aarti Maldonado MD [address] [place] [address] Microhematuria (Primary Dx) Social History [...] Description 03/14/2025 2:45 PM EDT Pre-Admission Testing [facility] Pre-op Clinic [address] [place] [address] 03/19/2025 9:15 AM EDT Hospital Encounter [facility] [address] [place] [address] Aarti Maldonado MD [address] [address] 03/19/2025 9:15 AM EDT - 03/19/2025 11:30 AM EDT Surgery [facility] [address] [place] [address] Aarti Maldonado MD [address] [address] ENUCLEATION, PROSTATE, TRANSURETHRAL, USING HOLMIUM LASER [[id number] (CPT )] 04/18/2025 10:30 AM EDT Office Visit Medical Office Building Urology [facility], [address] [place] [address] Aarti Maldonado MD [address] [address] Scheduled Orders Name Type Priority Associated Diagnoses [...] documented as of this encounter Care Teams Miniature Set Constructor Relationship Specialty Start Date End Date Ryne Bergman MD [address] [place] [address] PCP - General 04/21/24 Abiola Loyola APRN [address] [facility] [place] [address] Nurse Practitioner Urology 10/30/24 Aarti Maldonado MD [address] [place] [address] Surgeon Urology 01/10/25 documented as of this encounter
--- NOTE | 2025-03-14 09:15 | CA_ITS ---
APPROVED REPORT EXAM: Comprehensive 2D, Doppler, and color-flow Echocardiogram Supervisor Dehydrogenation: ENRIQUE Booth, RVS Ht: 5 ft 10 in Wt: 228lbs BSA: 2.21 BP: 168/81 mmHg Indications: Chest pain 2D Dimensions Left Atrium 4.03 cm M: 3.0 - 4.0 LA Volume 58.90 mL LA Volume Index 26.705917 mL/m2 (M/F) 16-34 M-Mode Dimensions RVDd 2.86 cm (0.9-2.6) LA Diam 3.51 cm (1.9-4.0) LVDd 5.07 cm (3.5-5.7) LVDs 2.82 cm (3.5-5.7) IVSd 1.17 cm (0.6-1.1) PWd 1.17 cm (0.6-1.1) EF (Teich) 75.30% EPSs 0.20 cm FS 44.40% EDV (Teich) 122.10 mL TAPSE 2.15 (<1.7) ESV (Teich) 30.10 mL LV Diastology E Decel Time 220 (160-240 msec) E/A Ratio 1.53 MED A' 9.30 cm/s LAT A' 10.30 cm/s Aortic Valve OLIVER Index 1.08 cm2/m2 AoV Peak Denis. 159.0 (50-130 cm/s) AO Peak GR. 10.10 mmHg AO Mean GR. 5.00 (<5 mmHg) AO VTI 37.0 (18-25 cm) OLIVER (VTI) 2.45 (2.5-4.5 cm2) Mitral Valve MV A Velocity 65.0 (40-130 cm/s) E/A Ratio 1.53 Pulmonary Valve CO End VMAX 179.0 cm/s Tricuspid Valve TR P. Velocity 185.00 cm/s RAP Estimate 10.00 mmHg RVSP 23.70 mmHg Left Ventricle The left ventricle is normal size. The left ventricular systolic function is normal. The left ventricular ejection fraction is within the normal range. There is increased overall thickness. Proximal septal thickening is present. IVSd 1.4 cm. There is normal LV segmental wall motion. Incidental finding of septal flow into the left ventricle possibly representing septal wash crew person branch flow. The left ventricular diastolic function is normal. LVEF is 55%. Right Ventricle The right ventricle is normal size. The right ventricular systolic function is normal. Atria The left atrium size is normal. The right atrium size is normal. There is no Doppler evidence of interatrial shunt. Aortic Valve Aortic valve is mildly thickened. There is no aortic valvular stenosis. No aortic regurgitation is present. Mitral Valve The mitral valve is normal in structure. No evidence of mitral valve stenosis. Trace mitral regurgitation. Tricuspid Valve Tricuspid valve is grossly normal in structure and function. Trace tricuspid regurgitation. There is insufficient TR jet to estimate RVSP. Pulmonic Valve The pulmonary valve is normal in structure. Trace pulmonic regurgitation. Great Vessels The aortic root is normal in size. IVC is normal in size and collapses >50% with inspiration. Pericardium There is no pericardial effusion. Other Information Study Quality: Fair Conclusion Normal ventricular systolic function. There is increased overall thickness. Proximal septal thickening is present. IVSd 1.4 cm. Incidental finding of septal flow into the left ventricle possibly representing septal wash crew person branch flow. No significant valvular stenosis or regurgitation. In the setting of increased LV wall thickness with proximal septal thickening of IVSd 1.4 cm, further evaluation with cardiac MRI (HCM protocol) is suggested. Also, in the setting of suspected septal wash crew person branch flow, further evaluation with coronary angiography is suggested. Electronically signed by : Alejandra Lopes MD 03/14/2025 13:55:12
[2025-03-14] MEDS: SODIUM CHLORIDE 0.9% 10ML SYR (RAD ONLY) 10 ML IV ×2 (09:46→09:47)
[2025-03-14] MEDS: REGADENOSON 0.4MG/5ML SYRINGE 0.4 MG IV (09:46)
[2025-03-14] MEDS: ISOTOPE MYOVIEW (PER STUDY) 1 DOSE IV (09:47)
== END 2025-03-14 23:59 | disposition home or self-care (01) ==
LOC: RAD 07:30
PROVIDERS: PCP Family Medicine; Visit Provider Physician Assistant
DX: R93.1 Abnormal findings on diagnostic imaging of heart and coronary circulation (principal); R94.39 Abnormal result of other cardiovascular function study; I11.9 Hypertensive heart disease without heart failure; E11.9 Type 2 diabetes mellitus without complications; F17.200 Nicotine dependence, unspecified, uncomplicated; G47.33 Obstructive sleep apnea (adult) (pediatric); E78.5 Hyperlipidemia, unspecified
CPT/HCPCS: 78452; 93017; 93018; 93306; A9502; J2785

== ENCOUNTER 2025-03-20 07:55 | Day surgery (SDC) | payer MEDICARE, SELFPAY ==
[2025-03-20] VITALS (11 sets, daily range): BP systolic 129–178; BP diastolic 57–83; PULSE 52–72; RESP 18–21; O2SAT 93–98; BMI 33.4
--- NOTE | 2025-03-20 07:30 | IR_ITS ---
APPROVED REPORT Patient Location: Outpatient PROCEDURES Left heart catheterization Left ventriculogram Selective coronary angiogram INDICATION Abnormal Myoview, Angina pectoris Informed consent was obtained prior to the procedure. COMPLICATIONS None Estimated Blood Loss: Less than 10 mls TECHNIQUE One percent lidocaine used to anesthetize the right anterior aspect of the wrist. The right radial artery was accessed via the Seldinger technique. A 6 Portuguese sheath was placed in the right radial artery. 2.5 mg of Verapamil, 800 mcg of nitroglycerin, 1mg Lidocaine and 5000 U Heparin were given through the arterial sheath. The JL3 catheter was also used to perform left heart catheterization, left ventriculogram and selective coronary angiogram. At the end of the procedure the sheath was removed good hemostasis was achieved using Traclet band, patient was transferred to the postop holding area in stable condition. ANGIOGRAPHIC RESULTS The left main artery Normal The left anterior descending artery Has smooth 10% luminal regularities in the proximal and midportion The circumflex artery Normal The right coronary artery Normal The DECKER ventriculogram reveals Normal 65% The left ventricular end-diastolic pressure Normal 10 mmHg IMPRESSION Mild luminal regularities as described above Normal ejection fraction Normal LVEDP PLAN 1. Medical management 2. Risk factor modification Electronically signed by : José Luis Flynn MD 03/20/2025 10:52:30
[2025-03-20 08:24] LABS: Basophils # 0.1 K/mm3 (0-0.2); Basophils % 0.7 % (0.1-2.0); Eosinophils # 0.4 Kmm3 (0.0-0.4); Eosinophils % 4.1 % (0.1-12.0); Hematocrit 41.9 % (42.0-52.0); Hemoglobin 13.8 g/dL (14.1-18.0); Immature Granulocytes # 0.02 10^3uL; Immature Granulocytes % 0.2 %; Lymphocytes # 2.8 K/mm3 (0.7-4.5); Lymphocytes % 32.4 % (10-50); Mean Corpuscular HGB Conc 32.9 g/dL (31.8-35.4); Mean Corpuscular Hemoglobin 30.5 pg (27.0-31.2); Mean Corpuscular Volume 92.5 fl (80-94); Mean Platelet Volume 9.5 fl (7.4-10.4); Monocytes # 0.8 K/mm3 (0.1-1.0); Monocytes % 8.8 % (1.7-9.3); Neutrophils # 4.6 K/mm3 (1.8-7.8); Neutrophils % 53.8 % (37.0-80.0); Nucleated Red Blood Cells # 0 10^3/uL; Nucleated Red Blood Cells % 0 %; Platelet Count 231 K/mm3 (142-424); Red Blood Count 4.53 M/mm3 (4.60-6.20); Red Cell Distribution Width 13.2 % (11.5-17.5); Red Cell Distribution Width-SD 44.9 fL; White Blood Count 8.6 K/mm3 (4.8-10.8)
[2025-03-20 08:34] LABS: Chloride 103 mmol/L (98-107); Potassium 3.9 mmoL/L (3.5-5.1); Sodium 141 mmol/L (136-145)
[2025-03-20 08:37] LABS: Blood Urea Nitrogen 22 mg/dl (9-20); Creatinine Clearance Estimated 99 mL/min (50-200); Estimated Glomerular Filt Rate 67 ml/min (>60); GFR (African American) 81 ML/MIN (>60)
[2025-03-20 08:38] LABS: Anion Gap 15.9 mEq/L (5-15); Calcium 9.3 mg/dl (8.4-10.2); Carbon Dioxide 26 mmol/L (22.0-30.0); Glucose 191 mg/dl (74-100)
[2025-03-20] MEDS: LIDOCAINE 1% 10ML MDV 10 ML IJ (10:15)
[2025-03-20] MEDS: HEPARIN 1,000 UNITS/ML 10ML VIAL (CATH LAB) 5000 UNIT IV (10:16)
[2025-03-20] MEDS: diphenhydrAMINE 50MG/ML VIAL 50 MG IV (10:16)
[2025-03-20] MEDS: VERAPAMIL 2.5MG/ML 2ML VIAL 2.5 MG IV (10:16)
[2025-03-20] MEDS: 0.9 % SODIUM CHLORIDE 500 ML 25 ML IV (10:16)
[2025-03-20] MEDS: HEPARIN 1,000 UNITS/500ML NS (CATH LAB) 3000 UNIT IV (10:17)
[2025-03-20] MEDS: NITROGLYCERIN 800MCG/8ML SYR (CATH LAB) 800 MCG IA (10:17)
[2025-03-20] MEDS: FENTANYL 100MCG/2ML VIAL 50 MCG IV (10:52)
[2025-03-20] MEDS: MIDAZOLAM HCL 1MG/ML 5ML VIAL 1 MG IV (10:52)
[2025-03-20] MEDS: IOPAMIDOL-370 (76%);100ML BOTTLE 50 ML IV (11:15)
== END 2025-03-20 13:38 | disposition home or self-care (01) ==
PROVIDERS: PCP Family Medicine; Visit Provider Internal Medicine
PROC: 4A023N7 Measurement of Cardiac Sampling and Pressure, Left Heart, Percutaneous Approach (ICD-10-PCS; CPT 93452; principal; 2025-03-20 09:30)
DX: R94.39 Abnormal result of other cardiovascular function study (principal); I20.9 Angina pectoris, unspecified; R07.9 Chest pain, unspecified; E11.9 Type 2 diabetes mellitus without complications; I10 Essential (primary) hypertension; G47.33 Obstructive sleep apnea (adult) (pediatric); E78.49 Other hyperlipidemia; Z86.73 Personal history of transient ischemic attack (TIA), and cerebral infarction without residual deficits; F17.210 Nicotine dependence, cigarettes, uncomplicated; Z79.82 Long term (current) use of aspirin; Z79.84 Long term (current) use of oral hypoglycemic drugs; Z79.4 Long term (current) use of insulin; Z79.899 Other long term (current) drug therapy; Z88.5 Allergy status to narcotic agent; Z88.8 Allergy status to other drugs, medicaments and biological substances
CPT/HCPCS: 93458; 80048; 85025; 99152; C1725; C1769; J1200; J1644; J3010; J7040; Q9967

== ENCOUNTER 2025-04-04 12:24 | Outpatient (CLI) | payer MEDICARE, SELFPAY ==
--- OUTSIDE RECORDS SUMMARY | 2025-03-12 07:40 | XMS_ITS | Encounter Summary ---
Author Organization Healthcare Address [address] [id number] Care Team Providers Care Line Construction Engineer Name Role Phone Ryne Bergman MD Primary Care Provider Abiola Loyola APRN Unavailable [phone] Aarti Maldonado MD Unavailable [phone] Reason for Referral * Imaging (Routine) - Closed Specialty Diagnoses / Procedures Referred By Kriss colin Referred To Contact Radiology Diagnoses Benign prostatic hyperplasia with urinary frequency Procedures MR Prostate w and wo IV Contrast Aarti Maldonado MD [address] [address] Phone: tel: fax: Referral ID Status Reason Start Date Expiration Date Visits Re quested Visits Authorized [id number] Closed 01/10/2025 07/12/2026 1 1 Reason for Visit * Imaging (Routine) - Closed Specialty Diagnoses / Procedures Referred By Kriss colin Referred To Contact Radiology Diagnoses Benign prostatic hyperplasia with urinary frequency Procedures MR Prostate w and wo IV Contrast Aarti Maldonado MD [address] [address] Phone: tel: fax: Referral ID Status Reason Start Date Expiration Date Visits Re quested Visits Authorized [id number] Closed 01/10/2025 07/12/2026 1 1 Encounter Details Date Type Department Care Team (Latest Contact Info) Description 03/12/2025 7:40 AM EDT - 03/12/2025 8:02 AM EDT Hospital Encounter [facility] [address] [place] [address] Benign prostatic hyperplasia with urinary frequency Discharge [...] breakfast. Do not crush, chew, or split. OneLaunch[employer]te Verio test strip USE 1 STRIP TO [...] Care Team (Late st Contact Info) Description 04/27/2025 Hospital Encounter [facility] [address] [place] [address] Aarti Maldonado MD [address] [place] [address] Scheduled Procedures Name Priority Associated Diagnoses Date/Ti [...] and 800 s/mm2 used to generate calculated i=7695 s/mm2 and ADC map; and an acquired high b =1400 s/mm2; axial 3D dynamic contrast-enhanced D0aukfyviv imaging with <10 sec temporal resolution were [...] 50 and 800 s/mm2 used to generatecalculated m=3565 s/mm2 and ADC map; and an acquired high b =1400 s/mm2;axial 3D dynamic contrast-enhanced C9zdvuslvm imaging with <10 sectemporal resolution were acquired [...] Jaye Andres DO on 03/12/2025 11:10 AM us Aarti Maldonado MD IM MRI PROCEDURES Final Res ult documented in this encounter Visit Diagnoses Diagnosis Benign prostatic hyperplasia with urinary frequency documented in this encounter Administered Medications Inactive Administered Medications - up to 3 most recent administrations Medication Order MAR Action Action Date Dose Rate Site gadobutrol (Gadavist) injection 10.5 mL 10.5 mL (0.1 mL/kg 105 kg), Intravenous, Once in imaging, 1 dose, Starting on Wed03/12/25 at 0835, Until 03/12/25 at 0902, Routine, Imaging Protocol Orders Given [...] documented as of this encounter Care Teams Line Construction Engineer Relationship Specialty Start Date End Date Ryne Bergman MD [address] [place] [address] PCP - General 04/21/24 Abiola Loyola APRN [address] [place] [address] Nurse Practitioner Urology 10/30/24 Aarti Maldonado MD [address] [place] [address] Surgeon Urology 01/10/25 documented as of this encounter
--- OUTSIDE RECORDS SUMMARY | 2025-03-12 08:03 | XMS_ITS | Encounter Summary ---
Author Organization [facility] Address [address] [place] [address] Care Team Providers Care Size Stamper Name Role Phone Ryne Bergman MD Primary Care Provider [phone] Abiola Loyola APRN Unavailable [phone] Aarti Maldonado MD Unavailable [phone] Encounter Details Date Type Department Care Team (Latest Contact Info) Description 03/12/2025 8:03 AM EDT - 03/12/2025 11:59 PM EDT Hospital Encounter [facility] Radiology [address] [place] [address] Benign prostatic hyperplasia with urinary frequency Discharge [...] Encounter [facility]AV A OPERATING ROOM [address] [place] [address] Aarti Maldonado MD [address] [place] [address] Scheduled Procedures Name Priority Associated Diagnoses Date/Ti [...] with urinary frequency documented in this encounter Additional Health Concerns Assessment Noted Time PHQ-9 Depression Total Score: 0 01/11/20 9:55 AM EDT A fall risk assessment has been complete d for the patient 01/10/2025 9:55 AM EDT A Body Mass Index follow-up plan has been documented for the patient 01/10/2025 12:34 PM EDT documented as of this encounter Care Teams Size Stamper Relationship Specialty Start Date End Date Ryne Bergman MD [address] [place] [address] PCP - General 04/21/24 Abiola Loyola APRN [address] [address] Nurse Practitioner Urology 10/30/24 Aarti Maldonado MD [address] [address] Surgeon Urology 01/10/25 documented as of this encounter
--- OUTSIDE RECORDS SUMMARY | 2025-03-14 14:45 | XMS_ITS | Encounter Summary ---
Author Organization Healthcare Address [address] [place] [address] Care Team Providers Care Quality Control Technician Name Role Phone Ryne Bergman MD Primary Care Provider [phone] Abiola Loyola APRN Unavailable [phone] Aarti Maldonado MD Unavailable [phone] Encounter Details Date Type Department Care Team (Latest Contact Info) Description 03/14/2025 2:45 PM EDT Pre-Admission Testing [place] [facility] Pre[facility] [address], [address] [place] [address] Preop examination (Primary Dx) Social History Tobacco [...] with Aarti Maldonado MD on 03/19/2025 in [facility] [place] Past Medical History[1] Family History[2] Social History[3] [...] CAD, CHF, dysrhythmias, hyperlipidemia, murmur, pacemaker, past [place] or syncope. hypertension (patient reports cardiology is [...] 03-05-25 03/11/25- provided by patient from his [facility] portal Na 137 K 4.[address] Bun [...] into the left ventricle possibly representing septal tumor registrar branch flow. No significant valvular stenosis or regurgitation In the setting of increased LV wall thickenss with proximal septal thickening of IVSd 1.4 cm, further evaluation with cardiac MRI ( H protocol is suggested. Also, in the setting of suspected septal tumor registrar branch flow, futher evaluation with coronary angiography [...] until he gets cardiac clearance. Rl Lancaster, TIPPLE OILER [1] Past Medical History: Diagnosis Date Benign prostatic hyperplasia Diabetes mellitus (CMS/HCC) Hypertension Urinary tract infection 2023 [2] Family History Problem Relation Name Age of Onset Hypertension Mother Tawnya Castrejon Kidney disease Mother Tawnya Castrejon Cancer Father [place] Cash Anesthesia problems Neg Hx Malig Hyperthermia [...] card, photo ID, along with power of united [place] attorney, guardianship or advanced directives if applicable [...] Encounter PAV A OPERATING ROOM [address] [place] [address] Aarti Maldonado MD [address] [place] [address] Scheduled Procedures Name Priority Associated Diagnoses Date/Ti [...] documented as of this encounter Care Teams Quality Control Technician Relationship Specialty Start Date End Date Ryne Bergman MD [address] [place] [address] PCP - General 04/21/24 Abiola Loyola APRN [address] [address] Nurse Practitioner Urology 10/30/24 Aarti Maldonado MD [address] [facility] [place] [address] Surgeon Urology 01/10/25 documented as of this encounter
--- OUTSIDE RECORDS SUMMARY | 2025-04-04 12:28 | XMS_ITS | Encounter Summary ---
Author Organization [facility] Address [address] [place] [address] Care Team Providers Care Manager Convention Name Role Phone Ryne Bergman MD Primary Care Provider [phone] Abiola Loyola APRN Unavailable [phone] Aarti Maldonado MD Unavailable [phone] Reason for Visit * Reason Onset Date Comments 03/05/25 Urine culture results from [facility] 03/08/2025 Encounter Details Date Type Department Care Team (Late st Contact Info) Description 03/08/2025 Telephone [place] [facility] U[facility] [address], [address] [place] [address] Aarti Maldonado MD [address] [place] [address] 03/05/25 Urine culture results from [facility] Social History Tobacco Use Types Packs/Day [...] AM EDT 03/05/25 Urine culture results from [facility] and have been uploaded to media. Thank you. documented in this encounter Plan of Treatment Upcoming Encounters Date Type Department Care Team (Late st Contact Info) Description 04/27/2025 Hospital Encounter PAV A OPERATING ROOM [address] [place] [address] Aarti Maldonado MD [address] [facility] [address] [place] [address] Scheduled Procedures Name Priority Associated Diagnoses Date/Ti [...] as of this encounter Care Teams Manager Convention Relationship Specialty Start Date End Date Ryne Bergman MD [address] [place] [address] PCP - General 04/21/24 Abiola Loyola APRN [address] [place] [address] Nurse Practitioner Urology 10/30/24 Aarti Maldonado MD [address] [place] [address] Surgeon Urology 01/10/25 documented as of this encounter
--- OUTSIDE RECORDS SUMMARY | 2025-04-04 12:28 | XMS_ITS | Encounter Summary ---
Author Organization [facility] Address [address] [place] [address] Care Team Providers Care Cord Splicer Name Role Phone Ryne Bergman MD Primary Care Provider [phone] Abiola Loyola DRYING SUPERVISOR Unavailable [phone] Aarti Maldonado MD Unavailable [phone] Reason for Visit * Reason Onset Date Comments [facility] Clinical Concern/Question 03/09/2025 Encounter Details Date Type Department Care Team (Late st Contact Info) Description 03/09/2025 Telephone [place] [facility] [address] [place] [address] Aarti Maldonado MD [address] [place] [address] HCN Clinical Concern/Question Social History [...] Miscellaneous Notes * Telephone Encounter - Tammy Sahrpe - 03/09/2025 10:09 AM EDT Patient call [...] optimal time of day to reach caller: [phone] Note: Please do not reply to this message. Follow-up communication and further actions as a result of this message need to be communicated with the patient directly, if the patient is not active onMyChart. If the patient is active on MyChart, they will receive notification of the communication/outcome via [employer]ying [employer] Mapping (SAM). documented in this encounter Plan of Treatment Upcoming Encounters Date Type Department Care Team (Late st Contact Info) Description 04/27/2025 Hospital Encounter PAV A OPERATING ROOM [address] [place] [address] Aarti Maldonado MD [address] [facility] [address] [place] [address] Scheduled Procedures Name Priority Associated Diagnoses Date/Ti [...] documented as of this encounter Care Teams Cord Splicer Relationship Specialty Start Date End Date Ryne Bergman MD [address] [place] [address] PCP - General 04/21/24 Abiola Loyola APRN [address] [place] [address] Nurse Practitioner Urology 10/30/24 Aarti Maldonado MD [address] [place] [address] Surgeon Urology 01/10/25 documented as of this encounter
--- OUTSIDE RECORDS SUMMARY | 2025-04-04 12:28 | XMS_ITS | Encounter Summary ---
Author Organization [facility] Address [address] [place] [address] Care Team Providers Care Wagon Person Name Role Phone Ryne Bergman MD Primary Care Provider [phone] Abiola Loyola HOUSING INSPECTORS Unavailable [phone] Aarti Maldonado MD Unavailable [phone] Encounter Details Date Type Department Care Team (Late st Contact Info) Description 03/09/2025 Orders Only [place] [facility] U[facility] [address] [place] [address] Aarti Maldonado MD [address] [place] [address] Social History Tobacco Use Types [...] Hospital Encounter PAV A OPERATING RO[address] [place] [address] Aarti Maldonado MD [address] [address] Scheduled Procedures Name Priority Associated Diagnoses Date/Ti [...] documented as of this encounter Care Teams Wagon Person Relationship Specialty Start Date End Date Ryne Bergman MD [address] [place] [address] PCP - General 04/21/24 Abiola Loyola APRN [address] [address] Nurse Practitioner Urology 10/30/24 Aarti Maldonado MD [address] [place] [phone] Surgeon Urology 01/10/25 documented as of this encounter
--- OUTSIDE RECORDS SUMMARY | 2025-04-04 12:28 | XMS_ITS | Encounter Summary ---
Author Organization [facility] Address [address] [place] [address] Care Team Providers Care Die Casting Supervisor Name Role Phone Ryne Bergman MD Primary Care Provider [phone] Abiola Loyola APRN Unavailable [phone] Aarti Maldonado MD Unavailable [phone] Encounter Details Date Type Department Care Team (Late st Contact Info) Description 04/02/2025 Telephone [place] [facility] [address], [address] [place] [address] Aarti Maldonado MD [address] [place] [address] Social History Tobacco Use Types Packs/Day Years Used Date Smoking Tobacco: Some Days Cigarettes 0.3 1.3 Started: 03/27/2024 Passive Smoke Exposure: Current Smokeless Tobacco: Never Comments:Working on quiting Alcohol Use Standard Drinks/Week [...] encounter Miscellaneous Notes * Telephone Encounter - Onur Lucy Estrella - 04/02/2025 3:29 PM EDT Spoke with patient, scheduled 04/27 surgery, verified address and phone number , mailed surgery info , patient is aware of anesthesia preop screening call and arrival time call prior to surgery, casescheduled with [place], patient to have urine culture at [facility] documented in this encounter Plan of Treatment Upcoming Encounters Date Type Department Care Team (Late st Contact Info) Description 04/27/2025 Hospital Encounter [facility] [address] [place] [address] Aarti Maldonado MD [address] [place] [address] Scheduled Orders Name Type Priority Associated Diagnoses Orde r Schedule Urine Culture Microbiology Routine Urine retention Expected: 04/02/2025 (Approximate), Expires: 10/04/2026 Scheduled Procedures Name Priority Associated Diagnoses Date/Ti me ENUCLEATION, PROSTATE, TRANSURETHRAL, USING HOLMIUM LASER BPH (benign prostatic hyperplasia) documented as of this encounter Goals Goal Patient Goal Type Associated Problems Recent Progress Patient-Stated? Author Autogenerat ed Goal Care Plan Autogenerated Problem No Lucy Mohr documented as of this encounter Visit Diagnoses Diagnosis Urine retention- Primary Unspecified retention of urine documented in this encounter Additional Health Concerns Active Problems Noted Date Diagnosed Date Autogenerated Problem 04/02/2025 Assessment Noted Time PHQ-9 Depression Total Score: 0 01/11/20 25 9:55 AM EDT A fall risk assessment has been complete d for the patient 01/10/2025 9:55 AM EDT A Body Mass Index follow-up plan has been documented for the patient 01/10/2025 12:34 PM EDT documented as of this encounter Care Teams Die Casting Supervisor Relationship Specialty Start Date End Date Ryne Bergman MD [address] [facility] [place] [address] PCP - General 04/21/24 Abiola Loyola, SCIENTIFIC INVESTIGATOR [address] [place] [address] Nurse Practitioner Urology 10/30/24 Aarti Maldonado MD [address] [place] [address] Surgeon Urology 01/10/25 documented as of this encounter
--- OUTSIDE RECORDS SUMMARY | 2025-04-04 12:28 | XMS_ITS | Encounter Summary ---
Author Organization [facility] Address [address] [place] [address] Care Team Providers Care Programmer Or Analyst Name Role Phone Ryne Bergman MD Primary Care Provider [phone] Abiola Loyola BOILING OFF WINDER Unavailable [phone] Aarti Maldonado MD Unavailable [phone] Encounter Details Date Type Department Care Team (Late st Contact Info) Description 02/13/2025 Telephone [place] [facility] [address], [address] [place] [address] Aarti Maldonado MD [address] [place] [address] Social History Tobacco Use Types [...] patient, notified him surgery location changed to [facility] on 03/19 documented in this encounter Plan of Treatment Upcoming Encounters Date Type Department Care Team (Late st Contact Info) Description 04/27/2025 Hospital Encounter [facility] [address] [place] [address] Aarti Maldonado MD [address] [place] [address] Scheduled Procedures Name Priority Associated Diagnoses Date/Ti [...] documented as of this encounter Care Teams Programmer Or Analyst Relationship Specialty Start Date End Date Ryne Bergman MD [address] [place] [address] PCP - General 04/21/24 Abiola Loyola APRN [address] [place] [address] Nurse Practitioner Urology 10/30/24 Aarti Maldonado MD [address] [place] [address] Surgeon Urology 01/10/25 documented as of this encounter
--- OUTSIDE RECORDS SUMMARY | 2025-04-04 12:28 | XMS_ITS | Encounter Summary ---
Author Organization Healthcare Address [address] [place] [address] Care Team Providers Care Estimator Lumber Name Role Phone Ryne Bergman MD Primary Care Provider [phone] Abiola Loyola APRN Unavailable [phone] Aarti Maldonado MD Unavailable [phone] Encounter Details Date Type Department Care Team (Latest Contact Info) Description 03/14/2025 Travel Social History Tobacco Use Types Packs/Day [...] [facility] ROOM [address] [place] [address] Aarti Maldonado MD [address] [facility] [address] [place] [address] Scheduled Procedures Name Priority Associated Diagnoses Date/Ti [...] documented as of this encounter Care Teams Estimator Lumber Relationship Specialty Start Date End Date Ryne Bergman MD [address] [place] [address] PCP - General 04/21/24 Abiola Loyola APRN [address] [place] [address] Nurse Practitioner Urology 10/30/24 Aarti Maldonado MD [address] [place] [address] Surgeon Urology 01/10/25 documented as of this encounter
--- OUTSIDE RECORDS SUMMARY | 2025-04-04 12:28 | XMS_ITS | Clinical Summary ---
Author Organization [facility] Address [address] [place] [address] Care Team Providers Care Head Lineman Name Role Phone Ryne Bergman MD Primary Care Provider [phone] Abiola Loyola APRN Unavailable [phone] Aarti Maldonado MD Unavailable [phone] Allergies Active Allergy Reactions Criticality Noted Date Comments Morphine Hives,Itching,Rash,Swelling High 01/09/20 22 Oxybutynin Palpitations High 10/30/2024 Increase BP Medications finasteride (Proscar) 5 MG tablet Take 1 tablet by mouth 1 time each day. 4 Active FLUoxetine (PROzac) 40 MG capsule Take 1 capsule by mouth daily. Active FLUoxetine (PROzac) 20 MG capsule Take 1 capsule by mouth 1 time each day. 4 Active hydrALAZINE (Apresoline) [...] mouth 1 time each day with dinner. Active pioglitazone (Actos) 45 MG tablet Take 1 tablet by mouth daily. Active potassium chloride CR (K-Tab) 20 MEQ ER tablet Take 1 tablet by mouth 1 time each day. 4 Active pramipexole (Mirapex) 1 MG tablet Take 1 tablet (1 mg) by mouth 1 (one) time each day. 4 Active rosuvastatin (Crestor) 10 MG tablet Take 2 tablets by mouth 1 time each day. 4 Active tamsulosin (Flomax) 0.4 MG 24 hr capsule Take 1 capsule by mouth 2 times a day. 4 Active topiramate (Topamax) 25 MG tablet Take 1 tablet by mouth 2 times a day. Active valsartan (Diovan) 320 MG tablet Take 1 tablet by mouth 1 time each day. 4 Active albuterol 108 [...] mouth daily. Active NIFEdipine CC (Adalat CC) 60 MG 24 hr tablet Take 1 tablet by mouth daily before breakfast. Do not crush, chew, or split. Active metoprolol succinate XL (Toprol-XL) 25 MG 24 hr tablet Take 1 tablet by mouth daily. 5 Active aspirin 81 MG EC tablet Take 1 tablet by mouth 1 time each day. 5 Active Active Problems Problem Noted Date [...] Encounters Date Type Department Care Team Description 04/02/[address] [facility] Urology [address] [facility] 2nd [place] [address] Aarti Maldonado MD 03/23/[address] [facility] Urology [address] [address] Aarti Maldonado MD 03/14/2025 2:45 PM EDT Pre-Admission Testing [facility] Pre[facility]op Clinic [address] [address] Preop examination (Primary Dx) 03/14/[address] [facility] Urology [address] [address] Aarti Maldonado MD 03/14/2025 Travel 03/12/2025 8:03 AM EDT - 03/12/2025 11:59 PM EDT Hospital Encounter [facility] [address] [place] [address] Benign prostatic hyperplasia with urinary frequency Discharge Disposition: Home or Self Care 03/12/2025 7:40 AM EDT - 03/12/2025 8:02 AM EDT Hospital Encounter [facility] [address] [place] [address] Benign prostatic hyperplasia with urinary frequency Discharge Disposition: Home or Self Care 03/12/2025 Results Follow-Up Medical Office Building Urology [address] [facility], [address] [place] [address] Aarti Maldonado MD 03/12/[address] [facility] Urology [address] [place] [address] Aarti Maldonado MD 03/09/25 Final Urine culture results 03/12/2025 Travel 03/09/[address] [facility] Urology [address] [place] [address] Aarti Maldonado MD 03/09/[address] [facility] Urology [address] [place] [address] Aarti Maldonado MD H[facility] Clinical Concern/Question 03/08/[address] [facility] Urology [address] [place] [address] Aarti Maldonado MD Microhematuria (Primary Dx) 03/08/[address] [facility] Urology [address] [place] [address] Aarti Maldonado MD 03/05/25 Urine culture results from [facility] 02/13/[address] [facility] Urology [address] [place] [address] Aarti Maldonado MD 02/13/[address] [facility] Urology [address], [address] [place] [address] Aarti Maldonado MD 01/15/[address] [facility] Urology [address], [address] [place] [address] Aarti Maldonado MD 01/12/[address] [facility] Urology [address] [place] [address] Aarti Maldonado MD 01/10/2025 9:45 AM EDT Office Visit [facility] Urology [address] [place] [address] Aarti Maldonado MD Benign prostatic hyperplasia with urinary frequency (Primary Dx); Microhematuria 01/10/[address] [facility] Urology [address], [address] [place] [address] Aarti Maldonado MD 01/10/[address] [facility] Urology [address], [address] [place] [address] Aarti Maldonado MD 01/10/2025 Travel 01/09/2025 Travel from Last 3 Months Immunizations Immunization Administration Dates Next Due Hep A, Adult 07/30/2018 Influenza, injectable, quadr ivalent, preservative free 08/24/2023,07/28/2022,08/23/2019,07/30 Pneumococcal 20-edinson Conj Vaccine 11/23/2023 Pneumococcal Polysaccharide PPV23 07/25/2018 Family History Medical History Relation Name Comments Cancer Father [place] Cash Hypertension Mother Tawnya Castrejon Kidney disease Mother Tawnya Castrejon Anesthesia problems Neg Hx Malig Hyperthermia Neg Hx Relation Name Status Comments Father [place] Mother Tawnya Castrejon Social History Tobacco Use [...] F) 03/14/2025 2:24 PM EDT Respiratory Rate 18 01/10/2025 10:06 AM EDT Oxygen Saturation 94% 03/14/2025 2:24 PM EDT Inhaled Oxygen Concentration - - Weight 104 kg (229 lb 15 oz) 03/14/2025 2:24 PM EDT Height 175.3 cm (5' 9 ) 03/14/2025 2:24 PM EDT Body Mass Index 33.96 03/14/2025 2:24 PM EDT Plan of Treatment Upcoming Encounters Date Type Department Care Team (Late st Contact Info) Description 04/27/2025 Hospital Encounter [facility] OPER[facility] ROOM [address] [place] [address] Aarti Maldonado MD [address] [place] [address] Scheduled Procedures Name Priority Associated Diagnoses Date/Ti [...] 2023 [facility]-Diabetes: Hemoglobin A1C 05/22/2024 11/23/2023, 07/28/2022 [id number] Vaccine (3 - 2023- season) 2024 03/07/2021, 02/07/2021 [facility]-Influenza Vaccine (#1) 05/28/202508/24, 07/28/2022, 08/23/2019, Additional history exists [facility]-Depression Screening [...] Care Plan Autogenerated Problem No Lucy Mohr Procedures Procedure Name Priority Date/Time Associated Diagnosis [...] and 800 s/mm2 used to generate calculated j=5585 s/mm2 and ADC map; and an acquired high b =1400 s/mm2; axial 3D dynamic contrast-enhanced [id number] imaging with <10 sec temporal resolution were [...] 50 and 800 s/mm2 used to generatecalculated i=7372 s/mm2 and ADC map; and an acquired high b =1400 s/mm2;axial 3D dynamic contrast-enhanced [id number] imaging with <10 sectemporal resolution were acquired [...] Procedure discussed: discussed risks, benefits and alternatives Kitchenhand present: no Timeout: timeout called immediately prior to procedure Prep: patient was prepped and draped in usual sterile fashion Prep type: Betadine Anesthesia: local anesthesia Procedure Details Cystoscope type: flexible Cystoscopy route: transurethral Cystoscopy location: [place] bladder Irrigation used: saline Position: supine Urethra [...] - 1.20 mg/dL 01/10/2025 1:54 PM EDT [facility] eGFRcr 96.2 mL/min/1.7 3m*2 01/10/2025 1:54 PM EDT [facility] Comment:Reported eGFRcr in m L/min/1.73m2 is based the CKD-EPI 2020 equation that does not use a race coefficient. Blood Venous blood specimen / Unknown Venipuncture / Unknown 01/10/2025 11:55 AM EDT 01/10/2025 11:55 AM EDT us Aarti Maldonado MD LAB BLOOD ORDERABLES Final R esult Performing Organization Address City/State/[facility] Co de Phone Number [facility] [address] [place] [address] * POC US Bladder Volume (01/10/2025 10:21 AM EDT) Urine, Volume 76 mL IMAGING Anatomical Region Laterality Modality Other us Aarti Maldonado MD IMG POINT OF CARE ULTRASOUND Final Result * (ABNORMAL) POCT URINALYSIS DIPSTICK (01/10/2025 10:01 AM EDT) POCT Urine Color Yellow 01/10/2025 10:03 AM EDT [facility] POCT Urine Clarity Clear 01/10/2025 10:03 AM EDT [facility] POCT Urine Glucose >=1000(A) Negative mg/dL 01/10/2025 10:03 AM EDT [facility] POCT Urine Bilirubin Negative Negative mg/dL 01/10/2025 10:03 AM EDT [facility] POCT Urine Ketones Negative Negative mg/dL 01/10/2025 10:03 AM EDT [facility] POCT Urine Specific [place] 1.020 1.005 - 1.030 01/10/2025 10:03 AM EDT [facility] POCT Urine Blood Negative Negative 01/10/2025 10:03 AM EDT [facility] POCT pH, Urine 5.5 5.0 - 8.0 01/10/2025 10:03 AM EDT [facility] POCT Protein, Urine Negative Negative mg/dL 01/10/2025 10:03 AM EDT [facility] POCT Urobilinogen, Urine 0.2 0.2, 1.0 EU/dL 01/10/2025 10:03 AM EDT [facility] POCT Nitrite, Urine Negative Negative 01/10/2025 10:03 AM EDT [facility] POCT Urine Leukocyte Esterase Negative Negative 01/10/2025 10:03 AM EDT [facility] Urine 01/10/2025 10:0 1 AM EDT 01/10/2025 10:03 AM EDT us Aarti Maldonado MD LAB POINT OF CARE TE ST DOCKED DEVICE UNSOLICITED RESULTS Final Result [facility] [address] [place], [place] from Last 3 Months Additional Health Concerns Active Problems Noted Date Diagnosed Date Autogenerated Problem 04/02/2025 Insurance [facility] MEDICARE Care Teams Head Lineman Relationship Specialty Start Date End Date Ryne Bergman MD [address] [place] [address] PCP - General 04/21/24 Abiola Loyola APRN [address] [place] [address] Nurse Practitioner Urology 10/30/24 Aarti Maldonado MD [address] [place] [address] Surgeon Urology 01/10/25
--- OUTSIDE RECORDS SUMMARY | 2025-04-04 12:28 | XMS_ITS | Encounter Summary ---
Author Organization [facility] Address [address] [place] [address] Care Team Providers Care Event Staff Name Role Phone Ryne Bergman MD Primary Care Provider [phone] Abiola Loyola CUSTODIAN Unavailable [phone] Aarti Maldonado MD Unavailable [phone] Encounter Details Date Type Department Care Team (Late st Contact Info) Description 03/08/2025 Orders Only [facility] Urology [address] [place] [address] Aarti Maldonado MD [address] [place] [address] Microhematuria (Primary Dx) Social History [...] [facility]ATING ROOM [address] [place] [address] Aarti Maldonado MD [address] [address] Scheduled Orders Name Type Priority Associated Diagnoses Orde r Schedule Urine Culture - Lab Collect Microbiology Routine Microhematuria Expected: 03/08/2025 (Approximate), Expires: 2026 Scheduled Procedures Name Priority Associated Diagnoses Date/Ti me ENUCLEATION, PROSTATE, TRANSURETHRAL, USING HOLMIUM LASER BPH (benign prostatic hyperplasia) documented as of this encounter Visit Diagnoses Diagnosis Microhematuria- Primary documented in this encounter Additional Health Concerns Assessment Noted Time PHQ-9 Depression Total Score: 0 01/11/20 9:55 AM EDT A fall risk assessment has been complete d for the patient 01/10/2025 9:55 AM EDT A Body Mass Index follow-up plan has been documented for the patient 01/10/2025 12:34 PM EDT documented as of this encounter Care Teams Event Staff Relationship Specialty Start Date End Date Ryne Bergman MD [address] [place] [address] PCP - General 04/21/24 Abiola Loyola APRN [address] [address] Nurse Practitioner Urology 10/30/24 Aarti Maldonado MD [address] [place] [address] Surgeon Urology 01/10/25 documented as of this encounter
--- OUTSIDE RECORDS SUMMARY | 2025-04-04 12:28 | XMS_ITS | Encounter Summary ---
Author Organization Healthcare Address [address] [place] [address] Care Team Providers Care Relief Manager Name Role Phone Ryne Bergman MD Primary Care Provider [phone] Abiola Loyola CYLINDER DYER Unavailable [phone] Aarti Maldonado MD Unavailable [phone] Encounter Details Date Type Department Care Team [...] [facility] A OPERATING ROOM [address] [place] [address] Aarti Maldonado MD [address] [facility] [address] [place] [address] Scheduled Procedures Name Priority Associated Diagnoses Date/Ti [...] documented as of this encounter Care Teams Relief Manager Relationship Specialty Start Date End Date Ryne Bergman MD [address] [place] [address] PCP - General 04/21/24 Abiola Loyola APRN [address] [place] [address] Nurse Practitioner Urology 10/30/24 Aarti Maldonado MD [address] [place] [address] Surgeon Urology 01/10/25 documented as of this encounter
--- OUTSIDE RECORDS SUMMARY | 2025-04-04 12:28 | XMS_ITS | Encounter Summary ---
Author Organization Healthcare Address [address] [place] [address] Care Team Providers Care Producer Assistant Name Role Phone Ryne Bergman MD Primary Care Provider [phone] Abiola Loyola APRN Unavailable [phone] Aarti Maldonado MD Unavailable [phone] Encounter Details Date Type Department Care Team (Late st Contact Info) Description 10/30/2019 Orders Only External Location [address] [place] [address] Provider, External Social History Tobacco Use Types [...] Hospital Encounter [facility]ATING ROOM [address] [place] [address] Aarti Maldonado MD [address] [facility] [address] [place] [address] Scheduled Procedures Name Priority Associated Diagnoses Date/Ti [...] on filedocumented in this encounter Care Teams Producer Assistant Relationship Specialty Start Date End Date Ryne Bergman MD [address] [place] [address] PCP - General 04/21/24 Abiola Loyola APRN [address] [address] Nurse Practitioner Urology 10/30/24 Aarti Maldonado MD [address] [employer] [facility] [place] [address] Surgeon Urology 01/10/25 documented as of this encounter
--- OUTSIDE RECORDS SUMMARY | 2025-04-04 12:28 | XMS_ITS | Encounter Summary ---
Author Organization [facility] Address [address] [place] [address] Care Team Providers Care Manager Mountain Name Role Phone Ryne Bergman MD Primary Care Provider [phone] Abiola Loyola NEWS EDITOR Unavailable [phone] Aarti Maldonado MD Unavailable [phone] Reason for Visit * Reason Onset Date Comments 03/09/25 Final Urine culture results 03/12/2025 Encounter Details Date Type Department Care Team (Late st Contact Info) Description 03/12/2025 Telephone [facility] [address] [place] [address] Aarti Maldonado MD [address] [place] [address] 03/09/25 Final Urine culture results [...] encounter Miscellaneous Notes * Telephone Encounter - [place], Dayanna D - 03/12/2025 10:32 AM EDT 03/09/25 Final Urine culture results were received and have been uploaded to media. Thank you. documented in this encounter Plan of Treatment Upcoming Encounters Date Type Department Care Team (Late st Contact Info) Description 04/27/2025 Hospital Encounter [facility] OPERATING ROOM [address] [place] [address] Aarti Maldonado MD [address] [address] Scheduled Procedures Name Priority Associated Diagnoses Date/Ti [...] as of this encounter Care Teams Manager Mountain Relationship Specialty Start Date End Date Ryne Bergman MD [address] [place] [id number] PCP - General 04/21/24 Abiola Loyola APRN [address] [place] [address] Nurse Practitioner Urology 10/30/24 Aarti Maldonado MD [address] [place] [address] Surgeon Urology 01/10/25 documented as of this encounter
--- OUTSIDE RECORDS SUMMARY | 2025-04-04 12:28 | XMS_ITS | Encounter Summary ---
Author Organization [facility] Address [address] [place] [address] Care Team Providers Care Net Application Support Specialist Name Role Phone Ryne Bergman MD Primary Care Provider [phone] Abiola Loyola APRN Unavailable [phone] Aarti Maldonado MD Unavailable [phone] Encounter Details Date Type Department Care Team (Late st Contact Info) Description 02/10/2024 Orders Only External Location [address] [place] [address] Nicole Bernstein, DO [address] [place] [address] Social History Tobacco Use Types [...] Encounter [facility] OPERATING ROOM [address] [place] [address] Aarti Maldonado MD [address] [facility] [address] [place] [address] Scheduled Procedures Name Priority Associated [...] Tomogra phy 02/10/2024 7:13 PM EDT Nicole N Bernstein DO IMG CT PROCEDURES Final Result documented in this encounter Visit Diagnoses Not on filedocumented in this encounter Care Teams Net Application Support Specialist Relationship Specialty Start Date End Date Ryne Bergamn MD [address] [place] [address] PCP - General 04/21/24 Abiola Loyola APRN [address] [place] [address] Nurse Practitioner Urology 10/30/24 Aarti Maldonado MD [address] [place] [address] Surgeon Urology 01/10/25 documented as of this encounter
--- OUTSIDE RECORDS SUMMARY | 2025-04-04 12:28 | XMS_ITS | Encounter Summary ---
Author Organization [facility] Address [address] [place] [address] Care Team Providers Care Assistant Producer Name Role Phone Ryne Bergman MD Primary Care Provider [phone] Abiola Loyola APRN Unavailable [phone] Aarti Maldonado MD Unavailable [phone] Encounter Details Date Type Department Care Team (Late st Contact Info) Description 02/13/2025 Telephone [place] [facility] [address], [address] [place] [address] Aarti Maldonado MD [address] [place] [address] Social History Tobacco Use Types [...] Hospital Encounter PAV A OPERATING ROOM [address] [place] [address] Aarti Maldonado MD [address] [place] [address] Scheduled Procedures Name Priority Associated Diagnoses Date/Ti [...] documented as of this encounter Care Teams Assistant Producer Relationship Specialty Start Date End Date Ryne Bergman MD [address] [place] [address] PCP - General 04/21/24 Abiola Loyola APRN [address] [address] Nurse Practitioner Urology 10/30/24 Aarti Maldonado MD [address] [place] [address] Surgeon Urology 01/10/25 documented as of this encounter
--- OUTSIDE RECORDS SUMMARY | 2025-04-04 12:28 | XMS_ITS | Encounter Summary ---
Author Organization [facility] Address [address] [place] [address] Care Team Providers Care Technical Assistance Consultant Name Role Phone Ryne Bergman MD Primary Care Provider [phone] Abiola Loyola PASSPORT APPLICATION EXAMINER Unavailable [phone] Aarti Maldonado MD Unavailable [phone] Encounter Details Date Type Department Care Team ([facility] Contact Info) Description 03/12/2025 Results Follow-Up Medical Office Building Urology [facility], [address] [place] [address] Aarti Maldonado MD [address] [place] [address] Social History Tobacco Use Types [...] Upcoming Encounters Date Type Department Care Team ([facility] Contact Info) Description 04/27/2025 Hospital Encounter PAV A OPERATING ROOM [address] [place] [address] Aarti Maldonado MD [address] [address] Scheduled Procedures Name Priority Associated Diagnoses Date/Ti [...] documented as of this encounter Care Teams Technical Assistance Consultant Relationship Specialty Start Date End Date Ryne Bergman MD [address] [place] [address] PCP - General 04/21/24 Abiola Loyola APRN [address] [address] Nurse Practitioner Urology 10/30/24 Aarti Maldonado MD [address] [address] Surgeon Urology 01/10/25 documented as of this encounter
--- OUTSIDE RECORDS SUMMARY | 2025-04-04 12:28 | XMS_ITS | Encounter Summary ---
Author Organization [facility] Address [address] [place] [address] Care Team Providers Care Corporate Coordinator Name Role Phone Ryne Bergman MD Primary Care Provider [phone] Abiola Loyola MEDICAL TECH Unavailable [phone] Aarti Maldonado MD Unavailable [phone] Encounter Details Date Type Department Care Team (Late Contact Info) Description 03/23/2025 Telephone [place] [facility] [address], [address] [place] [address] Aarti Maldonado MD [address] [place] [address] Social History Tobacco Use Types [...] Department Care Team (Late Contact Info) Description 04/27/2025 Hospital Encounter PAV A OPERATING ROOM [address] [place] [address] Aarti Maldonado MD [address] [address] Scheduled Procedures Name Priority Associated Diagnoses Date/Ti [...] documented as of this encounter Care Teams Corporate Coordinator Relationship Specialty Start Date End Date Ryne Bergman MD [address] [place] [phone] PCP - General 04/21/24 Abiola Loyola APRN [address] [address] Nurse Practitioner Urology 10/30/24 Aarti Maldonado MD [address] [address] Surgeon Urology 01/10/25 documented as of this encounter
--- OUTSIDE RECORDS SUMMARY | 2025-04-04 12:28 | XMS_ITS | Encounter Summary ---
Author Organization [facility] Address [address] [place] [address] Care Team Providers Care Crawler Tractor Operator Name Role Phone Ryne Bergman MD Primary Care Provider [phone] Abiola Loyola SUPERVISOR PHOSPHATIC FERTILIZER Unavailable [phone] Aarti Maldonado MD Unavailable [phone] Encounter Details Date Type Department Care Team (Late Contact Info) Description 03/14/2025 Telephone [place] [facility] [address], [address] [place] [address] Aarti Maldonado MD [address] [place] [address] Social History Tobacco Use Types [...] Hospital Encounter PAV A OPERATING ROOM [address] [place] [address] Aarti Maldonado MD [address] [address] Scheduled Procedures Name Priority Associated Diagnoses Date/Ti [...] documented as of this encounter Care Teams Crawler Tractor Operator Relationship Specialty Start Date End Date Ryne Bergman MD [address] [place] [phone] PCP - General 04/21/24 Abiola Loyola APRN [address] [address] Nurse Practitioner Urology 10/30/24 Aarti Maldonado MD [address] [address] Surgeon Urology 01/10/25 documented as of this encounter
[2025-04-04 13:16] LABS: Anion Gap 16.2 mEq/L (5-15); Blood Urea Nitrogen 21 mg/dl (9-20); Calcium 9.6 mg/dl (8.4-10.2); Carbon Dioxide 27 mmol/L (22.0-30.0); Chloride 102 mmol/L (98-107); Creatinine,Serum 0.90 mg/dl (0.66-1.25); Estimated Glomerular Filt Rate 84 ml/min (>60); GFR (African American) 102 ML/MIN (>60); Glucose 158 mg/dl (74-100); Potassium 4.2 mmoL/L (3.5-5.1); Sodium 141 mmol/L (136-145); Total Protein,Serum 7.0 g/dl (6.3-8.2)
[2025-04-05 15:20] LABS: Albumin 3.6 g/dL (2.9-4.4); Alpha-1-Globulin 0.2 g/dL (0.0-0.4); Alpha-2-Globulin 0.9 g/dL (0.4-1.0); Gamma Globulin 0.7 g/dL (0.4-1.8)
[2025-04-06 16:12] LABS: Immunoglobulin A, Qn 180 mg/dL (61-437); Immunoglobulin G, Qn 729 mg/dL (603-1613); Immunoglobulin M, Qn 56 mg/dL (20-172)
[2025-04-13 10:01] LABS: PDF SCANNED IMAGE
== END 2025-04-04 23:59 | disposition home or self-care (01) ==
LOC: LAB 12:25
PROVIDERS: PCP Family Medicine; Visit Provider Physician Assistant
DX: I25.10 Atherosclerotic heart disease of native coronary artery without angina pectoris (principal); I10 Essential (primary) hypertension; E11.9 Type 2 diabetes mellitus without complications; E78.49 Other hyperlipidemia; R93.1 Abnormal findings on diagnostic imaging of heart and coronary circulation
CPT/HCPCS: 80048; 82565; 82784; 83521; 84155; 84165; 84520; 86334

== ENCOUNTER 2025-04-05 11:54 | Outpatient (CLI) | payer MEDICARE, SELFPAY ==
--- OUTSIDE RECORDS SUMMARY | 2025-03-12 07:40 | XMS_ITS | Encounter Summary ---
Author Organization Healthcare Address [address] [id number] Care Team Providers Care Operations Research Analyst Name Role Phone Ryne Bergman MD Primary Care Provider [phone] Abiola Loyola APRN Unavailable [phone] Aarti Maldonado MD Unavailable [phone] Reason for Referral * Imaging (Routine) - Closed Specialty Diagnoses / Procedures Referred By Kriss colin Referred To Contact Radiology Diagnoses Benign prostatic hyperplasia with urinary frequency Procedures MR Prostate w and wo IV Contrast Aarti Maldonado MD [address] [address] Phone: tel: fax: Referral ID Status Reason Start Date Expiration Date Visits Re quested Visits Authorized [id number] Closed 01/10/2025 07/12/2026 1 1 Reason for Visit * Imaging (Routine) - Closed Specialty Diagnoses / Procedures Referred By Kriss colin Referred To Contact Radiology Diagnoses Benign prostatic hyperplasia with urinary frequency Procedures MR Prostate w and wo IV Contrast Aarti Maldonado MD [address] [address] Phone: tel: fax: Referral ID Status Reason Start Date Expiration Date Visits Re quested Visits Authorized [id number] Closed 01/10/2025 07/12/2026 1 1 Encounter Details Date Type Department Care Team (Latest Contact Info) Description 03/12/2025 7:40 AM EDT - 03/12/2025 8:02 AM EDT Hospital Encounter [facility] [address] [place] [address] Benign prostatic hyperplasia with urinary frequency Discharge [...] breakfast. Do not crush, chew, or split. OnePitchEngine Verio test strip USE 1 STRIP TO [...] Hospital Encounter [facility]ATING ROOM [address] [place] [address] Aarti Maldonado MD [address] [place] [address] Scheduled Procedures Name Priority Associated Diagnoses Date/Ti [...] and 800 s/mm2 used to generate calculated o=1498 s/mm2 and ADC map; and an acquired high b =1400 s/mm2; axial 3D dynamic contrast-enhanced S2prqugexf imaging with <10 sec temporal resolution were [...] 50 and 800 s/mm2 used to generatecalculated t=0963 s/mm2 and ADC map; and an acquired high b =1400 s/mm2;axial 3D dynamic contrast-enhanced I8nhllxeyw imaging with <10 sectemporal resolution were acquired [...] documented as of this encounter Care Teams Operations Research Analyst Relationship Specialty Start Date End Date Rnye Bergman MD [address] [place] [address] PCP - General 04/21/24 Abiola Loyola APRN [address] [place] [address] Nurse Practitioner Urology 10/30/24 Aarti Maldonado MD [address] [place] [address] Surgeon Urology 01/10/25 documented as of this encounter
--- OUTSIDE RECORDS SUMMARY | 2025-03-12 08:03 | XMS_ITS | Encounter Summary ---
Author Organization [facility] Address [address] [place] [address] Care Team Providers Care Zoning Administrator Name Role Phone Ryne Bergman MD Primary Care Provider [phone] Abiola Loyola APRN Unavailable [phone] Aarti Maldonado MD Unavailable [phone] Encounter Details Date Type Department Care Team (Latest Contact Info) Description 03/12/2025 8:03 AM EDT - 03/12/2025 11:59 PM EDT Hospital Encounter [facility] Radiology [address] [place] [address] Benign prostatic hyperplasia with urinary frequency Discharge [...] Encounter PAV A OPERATING ROOM [address] [place] [address] Aarti Maldonado MD [address] [place] [id number] Scheduled Procedures Name Priority Associated Diagnoses Date/Ti [...] documented as of this encounter Care Teams Zoning Administrator Relationship Specialty Start Date End Date Ryne Bergman MD [address] [place] [id number] PCP - General 04/21/24 Abiola Loyola APRN [address] [address] Nurse Practitioner Urology 10/30/24 Aarti Maldonado MD [address] [phone] Surgeon Urology 01/10/25 documented as of this encounter
--- OUTSIDE RECORDS SUMMARY | 2025-03-14 14:45 | XMS_ITS | Encounter Summary ---
Author Organization Healthcare Address [address] [place] [address] Care Team Providers Care Mini Baccarat Dealer Name Role Phone Ryne Bergman MD Primary Care Provider Abiola Loyola APRN Unavailable [phone] Aarti Maldonado MD Unavailable [phone] Encounter Details Date Type Department Care Team (Latest Contact Info) Description 03/14/2025 2:45 PM EDT Pre-Admission Testing [place] [facility] [address], [address]st [place] [address] Preop examination (Primary Dx) Social History Tobacco [...] with Aarti Maldonado MD on 03/19/2025 in [facility] [place] Past Medical History[1] Family History[2] Social History[3] [...] 03-05-25 03/11/25- provided by patient from his [facility] portal Na 137 K 4.2 Bun 25 [...] into the left ventricle possibly representing septal ctrs branch flow. No significant valvular stenosis or regurgitation In the setting of increased LV wall thickenss with proximal septal thickening of IVSd 1.4 cm, further evaluation with cardiac MRI ( H protocol is suggested. Also, in the setting of suspected septal ctrs branch flow, futher evaluation with coronary angiography [...] until he gets cardiac clearance. Rl Lancaster, PORTRAIT CONSULTANT [1] Past Medical History: Diagnosis Date Benign prostatic hyperplasia Diabetes mellitus (CMS/HCC) Hypertension Urinary tract infection 2023 [2] Family History Problem Relation Name Age of Onset Hypertension Mother Tawnya Castrejon Kidney disease Mother Tawnya Castrejon Cancer Father Troy Cash Anesthesia problems Neg Hx Malig Hyperthermia [...] card, photo ID, along with power of staff attorney, guardianship or advanced directives if applicable Do [...] Hospital Encounter [facility]PERATING RO[address] [place] [address] Aarti Maldonado MD [id number] [place] [address] Scheduled Procedures Name Priority Associated Diagnoses Date/Ti me ENUCLEATION, PROSTATE, TRANSURETHRAL, USING HOLMIUM LASER BPH (benign prostatic hyperplasia) documented as of this encounter Visit Diagnoses Diagnosis Preop examination- Primary Unspecified pre-operative examination documented in this encounter Additional Health Concerns Assessment Noted Time PHQ-9 Depression Total Score: 0 01/11/20 9:55 AM EDT A fall risk assessment has been complete d for the patient 01/10/2025 9:55 AM EDT A Body Mass Index follow-up plan has been documented for the patient 01/10/2025 12:34 PM EDT documented as of this encounter Care Teams Mini Baccarat Dealer Relationship Specialty Start Date End Date Ryne Bergman MD [address] [place] [address] PCP - General 04/21/24 Abiola Loyola APRN [address] [address] Nurse Practitioner Urology 10/30/24 Aarti Maldonado MD [address] [facility] [place] [address] Surgeon Urology 01/10/25 documented as of this encounter
--- OUTSIDE RECORDS SUMMARY | 2025-04-05 11:58 | XMS_ITS | Encounter Summary ---
Author Organization [facility] Address [address] [place] [address] Care Team Providers Care Coater Operator Name Role Phone Ryne Bergman MD Primary Care Provider [phone] Abiola Loyola APRN Unavailable [phone] Aarti Maldonado MD Unavailable [phone] Reason for Visit * Reason Onset Date Comments 03/05/25 Urine culture results from [facility] 03/08/2025 Encounter Details Date Type Department Care Team (Late st Contact Info) Description 03/08/2025 Telephone [place] [facility] [address], [address] [place] [address] Aarti Maldonado MD [address] [place] [address] 03/05/25 Urine culture results from [facility] Social History Tobacco Use Types [...] AM EDT 03/05/25 Urine culture results from [facility] and have been uploaded to media. Thank you. documented in this encounter Plan of Treatment Upcoming Encounters Date Type Department Care Team (Late st Contact Info) Description 04/27/2025 Hospital Encounter PAV A OPERATING ROOM [address] [place] [address] Aarti Maldonado MD [address] [facility] [address] [place] [address] Scheduled Procedures Name Priority Associated Diagnoses Date/Ti [...] documented as of this encounter Care Teams Coater Operator Relationship Specialty Start Date End Date Ryne Bergman MD [address] [place] [address] PCP - General 04/21/24 Abiola Loyola APRN [address] [place] [address] Nurse Practitioner Urology 10/30/24 Aarti Maldonado MD [address] [place] [address] Surgeon Urology 01/10/25 documented as of this encounter
--- OUTSIDE RECORDS SUMMARY | 2025-04-05 11:58 | XMS_ITS | Encounter Summary ---
Author Organization [facility] Address [address] [place] [address] Care Team Providers Care Records Manager Name Role Phone Ryne Bergman MD Primary Care Provider [phone] Abiola Loyola APRN Unavailable [phone] Aarti Maldonado MD Unavailable [phone] Encounter Details Date Type Department Care Team (Late st Contact Info) Description 10/30/2019 Orders Only External Location [address] [place] [address] Provider, External Social History Tobacco Use Types [...] Hospital Encounter PAV A OPERATING ROOM [address] [place] [address] Aarti Maldonado MD [address] [facility] [address] [place] [address] Scheduled Procedures Name Priority Associated Diagnoses Date/Ti [...] on filedocumented in this encounter Care Teams Records Manager Relationship Specialty Start Date End Date Ryne Bergman MD [address] [place] [address] PCP - General 04/21/24 Abiola Loyola APRN [address] [address] Nurse Practitioner Urology 10/30/24 Aarti Maldonado MD [address] [place] [address] Surgeon Urology 01/10/25 documented as of this encounter
--- OUTSIDE RECORDS SUMMARY | 2025-04-05 11:58 | XMS_ITS | Encounter Summary ---
Author Organization [facility] Address [address] [place] [address] Care Team Providers Care Mold Maker Apprentice Name Role Phone Ryne Bergman MD Primary Care Provider [phone] Abiola Loyola TITLE ABSTRACTOR Unavailable [phone] Aarti Maldonado MD Unavailable [phone] Reason for Visit * Reason Onset Date Comments 03/09/25 Final Urine culture results 03/12/2025 Encounter Details Date Type Department Care Team (Late st Contact Info) Description 03/12/2025 Telephone [facility] [address], 2nd [place] [address] Aarti Maldonado MD [address] [place] [address] 03/09/25 Final Urine culture results [...] Hospital Encounter PAV A OPERATING ROOM [address] [place] [address] Aarti Maldnoado MD [address] [address] Scheduled Procedures Name Priority Associated Diagnoses Date/Ti [...] documented as of this encounter Care Teams Mold Maker Apprentice Relationship Specialty Start Date End Date Ryne Bergman MD [address] [place] [address] [phone] PCP - General 04/21/24 Abiola Loyola APRN [address] [place] [address] Nurse Practitioner Urology 10/30/24 Aarti Maldonado MD [address] [place] [address] Surgeon Urology 01/10/25 documented as of this encounter
--- OUTSIDE RECORDS SUMMARY | 2025-04-05 11:58 | XMS_ITS | Encounter Summary ---
Author Organization [facility] Address [address] [place] [address] Care Team Providers Care Monotype Operator Name Role Phone Ryne Bergman MD Primary Care Provider [phone] Abiola Loyola TECHNICAL DOCUMENT WRITER Unavailable [phone] Aarti Maldonado MD Unavailable Reason for Visit * Reason Onset Date Comments [facility] Clinical Concern/Question 03/09/2025 Encounter Details Date Type Department Care Team (Late st Contact Info) Description 03/09/2025 Telephone [place] [facility] [address], 2nd [place] [address] Aarti Maldonado MD [address] [place] [address] [facility]CN Clinical Concern/Question Social History [...] optimal time of day to reach caller: [phone] Note: Please do not reply to this message. Follow-up communication and further actions as a result of this message need to be communicated with the patient directly, if the patient is not active onMyChart. If the patient is active on MyChart, they will receive notification of the communication/outcome via [address] [facility] [employer] I. documented in this encounter Plan of Treatment Upcoming Encounters Date Type Department Care Team (Late st Contact Info) Description 04/27/2025 Hospital Encounter PAV A OPERATING ROOM [address] [place] [address] Aarti Maldonado MD [address] [facility] [address] [place] [address] Scheduled Procedures Name Priority Associated Diagnoses Date/Ti [...] documented as of this encounter Care Teams Monotype Operator Relationship Specialty Start Date End Date Ryne Bergman MD [address] [place] [address] PCP - General 04/21/24 Abiola Loyola APRN [address] [place] [address] Nurse Practitioner Urology 10/30/24 Aarti Maldonado MD [address] [place] [address] Surgeon Urology 01/10/25 documented as of this encounter
--- OUTSIDE RECORDS SUMMARY | 2025-04-05 11:58 | XMS_ITS | Encounter Summary ---
Author Organization [facility] Address [address] [place] [address] Care Team Providers Care Drawing In Machine Tender Name Role Phone Ryne Bergman MD Primary Care Provider [phone] Abiola Loyola ASSEMBLER PLASTIC BOAT Unavailable [phone] Aarti Maldonado MD Unavailable [phone] Encounter Details Date Type Department Care Team (Late Contact Info) Description 03/23/2025 Telephone [place] [facility] [address] [place] [address] Aarti Maldonado MD [address] [place] [address] Social History Tobacco Use Types [...] Hospital Encounter PAV A OPERATING ROOM [address] [place] [address] Aarti Maldonado MD [address] [address] Scheduled Procedures Name Priority Associated Diagnoses Date/Ti [...] documented as of this encounter Care Teams Drawing In Machine Tender Relationship Specialty Start Date End Date Ryne Bergman MD [address] [place] [phone] PCP - General 04/21/24 Abiola Loyola APRN [address] [address] Nurse Practitioner Urology 10/30/24 Aarti Maldonado MD [address] [address] Surgeon Urology 01/10/25 documented as of this encounter
--- OUTSIDE RECORDS SUMMARY | 2025-04-05 11:58 | XMS_ITS | Encounter Summary ---
Author Organization [facility] Address [address] [place] [address] Care Team Providers Care Oracle Engineer Name Role Phone Ryne Bergman MD Primary Care Provider [phone] Abiola Loyola MANAGER ENVIRONMENTAL SERVICES Unavailable [phone] Aarti Maldonado MD Unavailable [phone] Encounter Details Date Type Department Care Team (Late st Contact Info) Description 03/09/2025 Orders Only [place] [facility] [address], 2[address] [place] [address] Aarti Maldonado MD [address] [place] [address] Social History Tobacco Use Types [...] Hospital Encounter PAV A OPERATING ROOM [address] [place] [address] Aarti Maldonado MD [address] [address] Scheduled Procedures Name Priority Associated Diagnoses Date/Ti [...] documented as of this encounter Care Teams Oracle Engineer Relationship Specialty Start Date End Date Ryne Bergman MD [address] [place] [address] PCP - General 04/21/24 Abiola Loyola APRN [address] [address] Nurse Practitioner Urology 10/30/24 Aarti Maldonado MD [address] [place] [phone] Surgeon Urology 01/10/25 documented as of this encounter
--- OUTSIDE RECORDS SUMMARY | 2025-04-05 11:58 | XMS_ITS | Encounter Summary ---
Author Organization [facility] Address [address] [place] [address] Care Team Providers Care Wink Cutter Operator Name Role Phone Ryne Bergman MD Primary Care Provider [phone] Abiola Loyola TRAFFIC MAINTENANCE OFFICER Unavailable [phone] Aarti Maldonado MD Unavailable [phone] Encounter Details Date Type Department Care [...] PAV A OPERATING ROOM [address] [place] [address] Aarti Maldonado MD [address] [facility] [address] [place] [address] Scheduled Procedures Name Priority Associated Diagnoses Date/Ti [...] documented as of this encounter Care Teams Wink Cutter Operator Relationship Specialty Start Date End Date Ryne Bergman MD [address] [place] [address] PCP - General 04/21/24 Abiola Loyola APRN [address] [place] [address] Nurse Practitioner Urology 10/30/24 Aarti Maldonado MD [address] [place] [address] Surgeon Urology 01/10/25 documented as of this encounter
--- OUTSIDE RECORDS SUMMARY | 2025-04-05 11:58 | XMS_ITS | Encounter Summary ---
Author Organization [facility] Address [address] [place] [address] Care Team Providers Care Data Security Administrator Name Role Phone Ryne Bergman MD Primary Care Provider [phone] Abiola Loyola QUALITY LIAISON Unavailable [phone] Aarti Maldonado MD Unavailable [phone] Encounter Details Date Type Department Care Team (Late st Contact Info) Description 03/08/2025 Orders Only [facility] Urology [address], [address] [place] [address] Aarti Maldonaod MD [address] [place] [address] Microhematuria (Primary Dx) Social History [...] PAV A OPERATING ROOM [address] [place] [address] Aarti Maldonado MD [address] [address] Scheduled Orders Name Type Priority Associated Diagnoses [...] documented as of this encounter Care Teams Data Security Administrator Relationship Specialty Start Date End Date Ryne Bergman MD [address] [place] [address] PCP - General 04/21/24 Abiola Loyola APRN [address] [address] Nurse Practitioner Urology 10/30/24 Aarti Maldonado MD [address] [place] [address] Surgeon Urology 01/10/25 documented as of this encounter
--- OUTSIDE RECORDS SUMMARY | 2025-04-05 11:59 | XMS_ITS | Encounter Summary ---
Author Organization [facility] Address [address] [place] [address] Care Team Providers Care Cartography Technician Name Role Phone Ryne Bergman MD Primary Care Provider [phone] Abiola Loyola VICE PRESIDENT OF NURSING Unavailable [phone] Aarti Maldonado MD Unavailable [phone] Encounter Details Date Type Department Care Team ([facility] Contact Info) Description 03/12/2025 Results Follow-Up Medical Office Building Urology [facility], [address] [place] [address] Aarti Maldonado MD [address] [place] [address] Social History Tobacco Use Types [...] Upcoming Encounters Date Type Department Care Team ([facility] Contact Info) Description 04/27/2025 Hospital Encounter PAV A OPERATING ROOM [address] [place] [address] Aarti Maldonado MD [address] [address] Scheduled Procedures Name Priority Associated Diagnoses Date/Ti [...] documented as of this encounter Care Teams Cartography Technician Relationship Specialty Start Date End Date Ryne Bergman MD [address] [place] [address] PCP - General 04/21/24 Abiola Loyola APRN [address] [address] Nurse Practitioner Urology 10/30/24 Aarti Maldonado MD [address] [address] Surgeon Urology 01/10/25 documented as of this encounter
--- OUTSIDE RECORDS SUMMARY | 2025-04-05 11:59 | XMS_ITS | Encounter Summary ---
Author Organization [facility] Address [address] [place] [address] Care Team Providers Care Ditcher Operator Name Role Phone Ryne Bergman MD Primary Care Provider [phone] Abiola Loyola APRN Unavailable [phone] Aarti Maldonado MD Unavailable [phone] Encounter Details Date Type Department Care Team (Late st Contact Info) Description 02/13/2025 Telephone [facility] [address] [place] [address] Aarti Maldonado MD [address] [place] [address] Social History Tobacco Use Types [...] Hospital Encounter PAV A OPERATING ROOM [address] [place] [address] Aarti Maldonado MD [address] [place] [address] Scheduled Procedures Name Priority Associated Diagnoses Date/Ti [...] documented as of this encounter Care Teams Ditcher Operator Relationship Specialty Start Date End Date Ryne Bergman MD [address] [place] [address] PCP - General 04/21/24 Abiola Loyola APRN [address] [address] Nurse Practitioner Urology 10/30/24 Aarti Maldonado MD [address] [place] [address] Surgeon Urology 01/10/25 documented as of this encounter
--- OUTSIDE RECORDS SUMMARY | 2025-04-05 11:59 | XMS_ITS | Encounter Summary ---
Author Organization [facility] Address [address] [place] [address] Care Team Providers Care C D Area Supervisor Name Role Phone Ryne Bergman MD Primary Care Provider [phone] Abiola Loyola APRN Unavailable [phone] Aarti Maldonado MD Unavailable [phone] Encounter Details Date Type Department Care Team (Late st Contact Info) Description 02/10/2024 Orders Only External Location [address] [place] [address] Nicole Bernstein, DO [address] [place] [address] Social History Tobacco Use Types [...] PAV A OPERATING ROOM [address] [place] [address] Aarti Maldonado MD [address] [facility] [address] [place] [address] Scheduled Procedures Name Priority Associated [...] on filedocumented in this encounter Care Teams C D Area Supervisor Relationship Specialty Start Date End Date Ryne Bergman MD [address] [place] [address] PCP - General 04/21/24 Abiola Loyola APRN [address] [place] [address] Nurse Practitioner Urology 10/30/24 Aarti Maldonado MD [address] [place] [address] Surgeon Urology 01/10/25 documented as of this encounter
--- OUTSIDE RECORDS SUMMARY | 2025-04-05 11:59 | XMS_ITS | Encounter Summary ---
Author Organization [facility] Address [address] [place] [address] Care Team Providers Care Producer Arborist Manager Name Role Phone Ryne Bregman MD Primary Care Provider [phone] Abiola Loyola APRN Unavailable [phone] Aarti Maldonado MD Unavailable [phone] Encounter Details Date Type Department Care Team [...] PAV A OPERATING ROOM [address] [place] [address] Aarti Maldonado MD [address] [facility] [address] [place] [address] Scheduled Procedures Name Priority Associated Diagnoses Date/Ti [...] documented as of this encounter Care Teams Producer Arborist Manager Relationship Specialty Start Date End Date Ryne Bergman MD [address] [place] [address] PCP - General 04/21/24 Abiola Loyola APRN [address] [place] [address] Nurse Practitioner Urology 10/30/24 Aarti Maldonado MD [address] [place] [address] Surgeon Urology 01/10/25 documented as of this encounter
--- OUTSIDE RECORDS SUMMARY | 2025-04-05 11:59 | XMS_ITS | Encounter Summary ---
Author Organization [facility] Address [address] [place] [address] Care Team Providers Care Public Speaking Coach Name Role Phone Ryne Bergman MD Primary Care Provider [phone] Abiola Loyola LEAN SPECIALIST Unavailable [phone] Aarti Maldonado MD Unavailable [phone] Encounter Details Date Type Department Care Team (Late Contact Info) Description 03/14/2025 Telephone [facility] [address] [place] [address] Aarti Maldoando MD [address] [place] [address] Social History Tobacco Use Types [...] Hospital Encounter PAV A OPERATING ROOM [address] [place] [address] Aarti Maldonado MD [address] [address] Scheduled Procedures Name Priority Associated Diagnoses Date/Ti [...] documented as of this encounter Care Teams Public Speaking Coach Relationship Specialty Start Date End Date Ryne Bergman MD [address] [place] [phone] PCP - General 04/21/24 Abiola Loyola APRN [address] [address] Nurse Practitioner Urology 10/30/24 Aarti Maldonado MD [address] [address] Surgeon Urology 01/10/25 documented as of this encounter
--- OUTSIDE RECORDS SUMMARY | 2025-04-05 11:59 | XMS_ITS | Clinical Summary ---
Author Organization [facility] Address [address] [place] [address] Care Team Providers Care Head Well Puller Name Role Phone Ryne Bergman MD Primary Care Provider [phone] Abiola Loyola APRN Unavailable [phone] Aarti Maldonado MD Unavailable Allergies Active Allergy [...] Type Department Care Team Description 04/02/2025 Telephone [facility] Urology [address] [facility] 2nd [place] [address] Aarti Maldonado MD 03/23/2025 Telephone [facility] Urology [address] [address] Aarti Maldonado MD 03/14/2025 2:45 PM EDT Pre-Admission Testing [facility] Pre-op Clinic [address] [address] Preop examination (Primary Dx) 03/14/2025 Telephone [facility] Urology [address] [address] Aarti Maldonado MD 03/14/2025 Travel 03/12/2025 8:03 AM EDT - 03/12/2025 11:59 PM EDT Hospital Encounter [facility] [address] [place] [address] Benign prostatic hyperplasia with urinary frequency Discharge Disposition: Home or Self Care 03/12/2025 7:40 AM EDT - 03/12/2025 8:02 AM EDT Hospital Encounter [facility] [address] [place] [address] Benign prostatic hyperplasia with urinary frequency Discharge Disposition: Home or Self Care 03/12/2025 Results Follow-Up Medical Office Building Urology [address] [facility], [address] [place] [address] Aarti Maldonado MD 03/12/2025 Telephone [facility] Urology [address], 2nd [place] [address] Aarti Maldonado MD 03/09/25 Final Urine culture results 03/12/2025 Travel 03/09/2025 Orders Only [facility] Urology [address], 2nd [place] [address] Aarti Maldonado MD 03/09/2025 Telephone [facility] Urology [address], 2nd [place] [address] Aarti Maldonado MD HCN Clinical Concern/Question 03/08/2025 Orders Only [facility] Urology [address], 2nd [place] [address] Aarti Maldonado MD Microhematuria (Primary Dx) 03/08/2025 Telephone [facility] Urology [address], 2nd [place] [address] Aarti Maldonado MD 03/05/25 Urine culture results from [facility] 02/13/2025 Telephone [facility] Urology [address], 2nd [place] [address] Aarti Maldonado MD 02/13/2025 Telephone [facility] Urology [address], 2nd [place] [address] Aarti Maldonado MD 01/15/2025 Telephone [facility] Urology [address], 2nd [place] [address] Aarti Maldonado MD 01/12/2025 Telephone [facility] Urology [address], 2nd [place] [address] Aarti Maldonado MD 01/10/2025 9:45 AM EDT Office Visit [facility] Urology [address], [address]nd [place] [address] Aarti Maldonado MD Benign prostatic hyperplasia with urinary frequency (Primary Dx); Microhematuria 01/10/2025 Orders Only [facility] Urology [address], 2nd [place] [address] Aarti Maldonado MD 01/10/2025 Telephone [facility] Urology [address], 2nd [place] [address] Aarti Maldonado MD 01/10/2025 Travel 01/09/2025 Travel from Last 3 Months Immunizations Immunization Administration Dates Next Due Hep A, Adult 07/30/2018 Influenza, injectable, quadr ivalent, preservative free 08/24/2023,07/28/2022,08/23/2019,07/30 Pneumococcal 20-edinson Conj Vaccine 11/23/2023 Pneumococcal Polysaccharide PPV23 07/25/2018 Family History Medical History Relation Name Comments Cancer Father Waverly Cash Hypertension Mother Tawnya Castrejon Kidney disease Mother Tawnya Castrejon Anesthesia problems Neg Hx Malig Hyperthermia Neg Hx Relation Name Status Comments Father Waverly Sullivan Mother Tawnya Castrejon Social History Tobacco Use [...] Encounter [facility] O[facility]ATING ROOM [address] [place] [address] Aarti Maldonado MD [address] [place] [address] Scheduled Procedures Name Priority Associated Diagnoses Date/Ti [...] 2023 [facility]Y-Diabetes: Hemoglobin A1C 05/22/2024 11/23/2023, 07/28/2022 [id number] Vaccine (3 - 2023- season) 2024 03/07/2021, [...] and 800 s/mm2 used to generate calculated e=4765 s/mm2 and ADC map; and an acquired high b =1400 s/mm2; axial 3D dynamic contrast-enhanced [id number] imaging with <10 sec temporal resolution were [...] 50 and 800 s/mm2 used to generatecalculated h=2360 s/mm2 and ADC map; and an acquired high b =1400 s/mm2;axial 3D dynamic contrast-enhanced [id number] imaging with <10 sectemporal resolution were acquired [...] Procedure discussed: discussed risks, benefits and alternatives Potato Bucker present: no Timeout: timeout called immediately prior to procedure Prep: patient was prepped and draped in usual sterile fashion Prep type: Betadine Anesthesia: local anesthesia Procedure Details Cystoscope type: flexible Cystoscopy route: transurethral Cystoscopy location: kiana bladder Irrigation used: saline Position: supine Urethra [...] - 1.20 mg/dL 01/10/2025 1:54 PM EDT [facility] eGFRcr 96.2 mL/min/1.7 3m*2 01/10/2025 1:54 PM EDT [facility] Comment:Reported eGFRcr in m L/min/1.73m2 is based the CKD-EPI 2020 equation that does not use a race coefficient. Blood Venous blood specimen / Unknown Venipuncture / Unknown 01/10/2025 11:55 AM EDT 01/10/2025 11:55 AM EDT us Aarti Maldonado MD LAB BLOOD ORDERABLES Final R esult Performing Organization Address City/State/[facility] Co de Phone Number [facility] [address] [place] [address] * POC US Bladder Volume (01/10/2025 10:21 AM EDT) Urine, Volume 76 mL IMAGING Anatomical Region Laterality Modality Other us Aarti Maldonado MD IMG POINT OF CARE ULTRASOUND Final Result * (ABNORMAL) POCT URINALYSIS DIPSTICK (01/10/2025 10:01 AM EDT) POCT Urine Color Yellow 01/10/2025 10:03 AM EDT [facility] POCT Urine Clarity Clear 01/10/2025 10:03 AM EDT [facility] POCT Urine Glucose >=1000(A) Negative mg/dL 01/10/2025 10:03 AM EDT [facility] POCT Urine Bilirubin Negative Negative mg/dL 01/10/2025 10:03 AM EDT [facility] POCT Urine Ketones Negative Negative mg/dL 01/10/2025 10:03 AM EDT [facility] POCT Urine Specific [place] 1.020 1.005 - 1.030 01/10/2025 10:03 AM EDT [facility] POCT Urine Blood Negative Negative 01/10/2025 10:03 AM EDT [facility] POCT pH, Urine 5.5 5.0 - 8.0 01/10/2025 10:03 AM EDT [facility] POCT Protein, Urine Negative Negative mg/dL 01/10/2025 10:03 AM EDT [facility] POCT Urobilinogen, Urine 0.2 0.2, 1.0 EU/dL 01/10/2025 10:03 AM EDT [facility] POCT Nitrite, Urine Negative Negative 01/10/2025 10:03 AM EDT [facility] POCT Urine Leukocyte Esterase Negative Negative 01/10/2025 10:03 AM EDT [facility] Urine 01/10/2025 10:0 1 AM EDT 01/10/2025 10:03 AM EDT us Aarti Maldonado MD LAB POINT OF CARE TE ST DOCKED DEVICE UNSOLICITED RESULTS Final Result [facility] [address], [place] from Last 3 Months Additional Health Concerns Active Problems Noted Date Diagnosed Date Autogenerated Problem 04/02/2025 Insurance [facility] MEDIC[facility] Care Teams Head Well Puller Relationship Specialty Start Date End Date Ryne Bergman MD [address] [place] [address] PCP - General 04/21/24 Abiola Loyola APRN [address] [place] [address] Nurse Practitioner Urology 10/30/24 Aarti Maldonado MD [address] [place] [address] Surgeon Urology 01/10/25
--- OUTSIDE RECORDS SUMMARY | 2025-04-05 11:59 | XMS_ITS | Encounter Summary ---
Author Organization [facility] Address [address] [place] [address] Care Team Providers Care Endodontic Assistant Name Role Phone Ryne Bergman MD Primary Care Provider [phone] Abiola Loyola MECHANICAL ENGINEER Unavailable [phone] Aarti Maldonado MD Unavailable [phone] Encounter Details Date Type Department Care Team (Late st Contact Info) Description 02/13/2025 Telephone [place] [facility] [address], [address]nd [place] [address] Aarti Maldonado MD [address] [place] [address] Social History Tobacco Use Types [...] Hospital Encounter [facility] OPERATING ROOM [address] [place] [address] Aarti Maldonado MD [address] [place] [address] Scheduled Procedures Name Priority Associated Diagnoses Date/Ti [...] documented as of this encounter Care Teams Endodontic Assistant Relationship Specialty Start Date End Date Ryne Bergman MD [address] [place] [address] PCP - General 04/21/24 Abiola Loyola APRN [address] [place] [address] Nurse Practitioner Urology 10/30/24 Aarti Maldonado MD [address] [place] [address] Surgeon Urology 01/10/25 documented as of this encounter
--- OUTSIDE RECORDS SUMMARY | 2025-04-05 11:59 | XMS_ITS | Encounter Summary ---
Author Organization [facility] Address [address] [place] [address] Care Team Providers Care Production Shift Supervisor Name Role Phone Ryne Bergman MD Primary Care Provider [phone] Abiola Loyola APRN Unavailable [phone] Aarti Maldonado MD Unavailable [phone] Encounter Details Date Type Department Care Team (Late st Contact Info) Description 04/02/2025 Telephone [place] [facility] [address], 2nd [place] [address] Aarti Maldonado MD [address] [place] [address] Social History Tobacco Use Types [...] Gonzales, patient to have urine culture at [facility] documented in this encounter Plan of Treatment Upcoming Encounters Date Type Department Care Team (Late st Contact Info) Description 04/27/2025 Hospital Encounter [facility] OPERATING ROOM [address] [place] [address] Aarti Maldonado MD [address] [place] [address] Scheduled Orders Name Type Priority Associated Diagnoses [...] documented as of this encounter Care Teams Production Shift Supervisor Relationship Specialty Start Date End Date Ryne Bergman MD [address] [facility] [place] [address] PCP - General 04/21/24 Abiola Loyola, CRYSTAL FINISHER [address] [place] [address] Nurse Practitioner Urology 10/30/24 Aarti Maldonado MD [address] [place] [address] Surgeon Urology 01/10/25 documented as of this encounter
== END 2025-04-05 23:59 | disposition home or self-care (01) ==
PROVIDERS: PCP Family Medicine; Visit Provider Family Medicine
DX: E11.65 Type 2 diabetes mellitus with hyperglycemia (principal); Z79.4 Long term (current) use of insulin
CPT/HCPCS: 97802

== ENCOUNTER 2025-04-06 13:31 | Outpatient (CLI) | payer MEDICARE, SELFPAY ==
--- OUTSIDE RECORDS SUMMARY | 2025-03-12 07:40 | XMS_ITS | Encounter Summary ---
Author Organization Healthcare Address [address] [id number] Care Team Providers Care Lead Portfolio Manager Name Role Phone Ryne Bergman MD Primary Care Provider [phone] Abiola Loyola APRN Unavailable [phone] Aarti Maldonado MD Unavailable [phone] Reason for Referral * Imaging (Routine) - Closed Specialty Diagnoses / Procedures Referred By Kriss colin Referred To Contact Radiology Diagnoses Benign prostatic hyperplasia with urinary frequency Procedures MR Prostate w and wo IV Contrast Aarti Maldonado MD [address] [address] Phone: tel: fax: Referral ID Status Reason Start Date Expiration Date Visits Re quested Visits Authorized [id number] Closed 01/10/2025 07/12/2026 1 1 Reason for Visit * Imaging (Routine) - Closed Specialty Diagnoses / Procedures Referred By Kriss colin Referred To Contact Radiology Diagnoses Benign prostatic hyperplasia with urinary frequency Procedures MR Prostate w and wo IV Contrast Aarti Maldonado MD [address] [address] Phone: tel: fax: Referral ID Status Reason Start Date Expiration Date Visits Re quested Visits Authorized [id number] Closed 01/10/2025 07/12/2026 1 1 Encounter Details Date Type Department Care Team (Latest Contact Info) Description 03/12/2025 7:40 AM EDT - 03/12/2025 8:02 AM EDT Hospital Encounter [facility] [address] [place] [address] Benign prostatic hyperplasia with urinary frequency Discharge [...] Hospital Encounter [facility] RO[facility] [address] [place] [address] Aarti Maldonado MD [address] [address] 04/27/2025 7:30 AM EDT - 04/27/2025 9:45 AM EDT Surgery [facility] [address] [place] [address] Aarti Maldonado MD [address] [address] ENUCLEATION, PROSTATE, TRANSURETHRAL, USING HOLMIUM LASER [[id number] (CPT )] Scheduled Procedures Name Priority Associated [...] and 800 s/mm2 used to generate calculated f=0338 s/mm2 and ADC map; and an acquired high b =1400 s/mm2; axial 3D dynamic contrast-enhanced Z6wfdndjox imaging with <10 sec temporal resolution were [...] 50 and 800 s/mm2 used to generatecalculated k=5479 s/mm2 and ADC map; and an acquired high b =1400 s/mm2;axial 3D dynamic contrast-enhanced P3fjhjbypv imaging with <10 sectemporal resolution were acquired [...] documented as of this encounter Care Teams Lead Portfolio Manager Relationship Specialty Start Date End Date Ryne Bergman MD [address] [place] [address] PCP - General 04/21/24 Abiola Loyola APRN [address] [place] [address] Nurse Practitioner Urology 10/30/24 Aarti Maldonado MD [address] [place] [address] Surgeon Urology 01/10/25 documented as of this encounter
--- OUTSIDE RECORDS SUMMARY | 2025-03-12 08:03 | XMS_ITS | Encounter Summary ---
Author Organization [facility] Address [address] [place] [address] Care Team Providers Care Sales Research Analyst Name Role Phone Ryne Bergman MD Primary Care Provider [phone] Abiola Loyola APRN Unavailable [phone] Aarti Maldonado MD Unavailable [phone] Encounter Details Date Type Department Care Team (Latest Contact Info) Description 03/12/2025 8:03 AM EDT - 03/12/2025 11:59 PM EDT Hospital Encounter [facility] Radiology [address] [place] [address] Benign prostatic hyperplasia with urinary frequency Discharge [...] Hospital Encounter [facility] OPERATING ROOM [address] [place] [address] Aarti Maldonado MD [address] [address] 04/27/2025 7:30 AM EDT - 04/27/2025 9:45 AM EDT Surgery [facility] RO[facility] [address] [place] [address] Aarti Maldonado MD [address] [address] ENUCLEATION, PROSTATE, TRANSURETHRAL, USING HOLMIUM LASER [75572 (CPT )] Scheduled Procedures Name Priority Associated Diagnoses Date/Ti me ENUCLEATION, PROSTATE, TRANSURETHRAL, USING HOLMIUM LASER BPH (benign prostatic hyperplasia) 04/27/2025 7:30 AM EDT documented as of this encounter Procedures Procedure Name Priority Date/Time Associated Diagnosis Comments XR EYE FOREIGN BODY Routine 03/12/2025 8 :18 AM EDT Benign prostatic hyperplasia with urinary frequency documented in this encounter Results * XR Eye Foreign Body (03/12/2025 8:18 AM EDT) Anatomical Region Laterality Modality Eye Computed Radiogr aphy Impressions 03/13/2025 5:25 PM EDT There are no metallic foreign bodies within, or in close proximity to, either orbit. CRITICAL RESULT: No. COMMUNICATION: Per this written report. Drafted by Dawson Sheppard MD on 03/13/2025 5:24 PM Final report signed by Dawson Sheppard MD on 03/13/2025 5:25 PM Narrative 03/13/2025 5:25 PM EDT CLINICAL INDICATION: Evaluate orbits for metallic foreign bodies prior to MR scan. TECHNIQUE: 2 views of the orbits were obtained. COMPARISON: None. FINDINGS: There are no metallic foreign bodies within, or in close proximity to, either orbit. Procedure Note Dawson Sheppard MD - 03/13/2025 CLINICAL INDICATION: Evaluate orbits for metallic foreign bodies prior to MR scan. TECHNIQUE: 2 views of the orbits were obtained. COMPARISON: None. FINDINGS: There are no metallic foreign bodies within, or in close proximity to,either orbit. IMPRESSION: There are no metallic foreign bodies within, or in close proximity to,either orbit. CRITICAL RESULT: No. COMMUNICATION: Per this written report. Drafted by Dawson Sheppard MD on 03/13/2025 5:24 PM Final report signed by Dawson Sheppard MD on 03/13/2025 5:25 PM Katelyn Fuller MD IMG XR PROCEDURES Final Result documented in this encounter Visit Diagnoses Diagnosis [...] documented as of this encounter Care Teams Sales Research Analyst Relationship Specialty Start Date End Date Ryne Bergman MD [address] [place] [address] PCP - General 04/21/24 Abiola Loyola APRN [address] [facility] [place] [address] [place] [address] Nurse Practitioner Urology 10/30/24 Aarti Maldonado MD [address] [place] [address] Surgeon Urology 01/10/25 documented as of this encounter
--- OUTSIDE RECORDS SUMMARY | 2025-03-14 14:45 | XMS_ITS | Encounter Summary ---
Author Organization Healthcare Address [address] [place] [address] Care Team Providers Care Wire Stripping Machine Operator Name Role Phone Ryne Bergman MD Primary Care Provider [phone] Abiola Loyola APRN Unavailable [phone] Aarti Maldonado MD Unavailable [phone] Encounter Details Date Type Department Care Team (Latest Contact Info) Description 03/14/2025 2:45 PM EDT Pre-Admission Testing [place] [facility] [address], [address] [place] [address] Preop examination (Primary Dx) Social History Tobacco [...] with Aarti Maldonado MD on 03/19/[address] [facility] [place] Past Medical History[1] Family History[2] Social History[3] [...] CAD, CHF, dysrhythmias, hyperlipidemia, murmur, pacemaker, past [place] or syncope. hypertension (patient reports cardiology is [...] 03-05-25 03/11/25- provided by patient from his [facility] portal Na 137 K 4.2 Bun 25 [...] into the left ventricle possibly representing septal concrete pipe machine operator branch flow. No significant valvular stenosis or regurgitation In the setting of increased LV wall thickenss with proximal septal thickening of IVSd 1.4 cm, further evaluation with cardiac MRI ( H protocol is suggested. Also, in the setting of suspected septal concrete pipe machine operator branch flow, futher evaluation with coronary [...] until he gets cardiac clearance. Rl Lancaster, SECURITY OPERATIONS SPECIALIST [1] Past Medical History: Diagnosis Date Benign prostatic hyperplasia Diabetes mellitus (CMS/HCC) Hypertension Urinary tract infection 2023 [2] Family History Problem Relation Name Age of Onset Hypertension Mother Tawnya Castrejon Kidney disease Mother Tawnya Castrejon Cancer Father Mar[place] Cash Anesthesia problems Neg Hx Malig Hyperthermia [...] card, photo ID, along with power of family therapist, guardianship or advanced directives if applicable Do [...] Hospital Encounter [facility] A OPERATING ROOM [address] [place] [address] Aarti Maldonado MD [address] [place] [address] 04/27/2025 7:30 AM EDT - 04/27/2025 9:45 AM EDT Surgery [address] [address]PER[address] RO[address] [place] [address] Aarti Maldonado MD [address] [place] [address] ENUCLEATION, PROSTATE, TRANSURETHRAL, USING HOLMIUM LASER [62040 (CPT )] Scheduled Procedures Name Priority Associated Diagnoses Date/Ti ky ENUCLEATION, PROSTATE, TRANSURETHRAL, USING HOLMIUM LASER BPH [...] documented as of this encounter Care Teams Wire Stripping Machine Operator Relationship Specialty Start Date End Date Ryne Bergman MD [address] [place] [address] PCP - General 04/21/24 Abiola Loyola APRN [address] [place] [address] Nurse Practitioner Urology 10/30/24 Aarti Maldonado MD [address] [place] [address] Surgeon Urology 01/10/25 documented as of this encounter
--- OUTSIDE RECORDS SUMMARY | 2025-04-06 13:33 | XMS_ITS | Encounter Summary ---
Author Organization [facility] Address [address] [place] [address] Care Team Providers Care Track Surfacing Machine Operator Name Role Phone Ryne Bergman MD Primary Care Provider Abiola Loyola APRN Unavailable [phone] Aarti Maldonado MD Unavailable [phone] Encounter Details Date Type Department Care Team [...] Encounter [facility] OPERATING ROOM [address] [place] [address] Aarti Maldonado MD [address] [facility] [address] [place] [address] 04/27/2025 7:30 AM EDT - 04/27/2025 9:45 AM EDT Surgery [facility] A OPERATING ROOM [address] [place] [address] Aarti Maldonado MD [address] [place] [address] ENUCLEATION, PROSTATE, TRANSURETHRAL, USING HOLMIUM LASER [[id number] (CPT )] Scheduled Procedures Name Priority Associated [...] documented as of this encounter Care Teams Track Surfacing Machine Operator Relationship Specialty Start Date End Date Ryne Bergman MD [address] [place] [address] PCP - General 04/21/24 Abiola Loyola APRN [address] [place] [address] Nurse Practitioner Urology 10/30/24 Aarti Maldonado MD [address] [place] [address] Surgeon Urology 01/10/25 documented as of this encounter
--- OUTSIDE RECORDS SUMMARY | 2025-04-06 13:33 | XMS_ITS | Encounter Summary ---
Author Organization [facility] Address [address] [place] [address] Care Team Providers Care Associate School Psychologist Name Role Phone Ryne Bergman MD Primary Care Provider [phone] Abiola Loyola FORM SETTER SUPERVISOR Unavailable [phone] Aarti Maldonado MD Unavailable [phone] Encounter Details Date Type Department Care Team (Late st Contact Info) Description 03/23/2025 Telephone [place] [facility] [address], 2nd [place] [address] Aarti Maldonado MD [address] [place] [address] Social History Tobacco Use Types [...] Hospital Encounter [facility] OPERATING ROOM [address] [place] [address] Aarti Maldonado MD [address] [address] 04/27/2025 7:30 AM EDT - 04/27/2025 9:45 AM EDT Surgery [facility] A OPERATING ROOM [address] [place] [address] Aarti Maldonado MD [address] [address] ENUCLEATION, PROSTATE, TRANSURETHRAL, USING HOLMIUM LASER [[id number] (CPT )] Scheduled Procedures Name Priority Associated [...] documented as of this encounter Care Teams Associate School Psychologist Relationship Specialty Start Date End Date Ryne Bergman MD [address] [place] [address] PCP - General 04/21/24 Abiola Loyola APRN [address] [address] Nurse Practitioner Urology 10/30/24 Aarti Maldonado MD [address] [address] Surgeon Urology 01/10/25 documented as of this encounter
--- OUTSIDE RECORDS SUMMARY | 2025-04-06 13:33 | XMS_ITS | Encounter Summary ---
Author Organization [facility] Address [address] [place] [address] Care Team Providers Care Rn Surgical Pcu Name Role Phone Ryne Bergman MD Primary Care Provider [phone] Abiola Loyola RETAIL AIDE Unavailable [phone] Aarti Maldonado MD Unavailable [phone] Encounter Details Date Type Department Care Team (Late st Contact Info) Description 03/09/2025 Orders Only [place] [facility] [address], 2nd [place] [address] Aarti Maldonado MD [address] [place] [address] Social History Tobacco Use Types [...] Hospital Encounter [facility] A OPERATING ROOM [address] [place] [address] Aarti Maldonado MD [address] [address] 04/27/2025 7:30 AM EDT - 04/27/2025 9:45 AM EDT Surgery PAV A OPERATING ROOM [address] [place] [address] Aarti Maldonado MD [address] [address] ENUCLEATION, PROSTATE, TRANSURETHRAL, USING HOLMIUM LASER [[id number] (CPT )] Scheduled Procedures Name Priority Associated [...] documented as of this encounter Care Teams Rn Surgical Pcu Relationship Specialty Start Date End Date Ryne Bergman MD [address] [place] [address] PCP - General 04/21/24 Abiola Loyola APRN [address] [place] [address] Nurse Practitioner Urology 10/30/24 Aarti Maldonado MD [address] [place] [address] Surgeon Urology 01/10/25 documented as of this encounter
--- OUTSIDE RECORDS SUMMARY | 2025-04-06 13:33 | XMS_ITS | Encounter Summary ---
Author Organization [facility] Address [address] [place] [address] Care Team Providers Care Freelance Translator Name Role Phone Ryne Bergman MD Primary Care Provider [phone] Abiola Loyola DIRECTOR GENERAL Unavailable [phone] Aarti Maldonado MD Unavailable [phone] Reason for Visit * Reason Onset Date Comments HCN Clinical Concern/Question 03/09/2025 Encounter Details Date Type Department Care Team (Late st Contact Info) Description 03/09/2025 Telephone [place] [facility] [address], [address] [place] [address] Aarti Maldonado MD [address] [place] [address] HCN Clinical Concern/Question Social History [...] to his list * Telephone Encounter - AmmonRosaline - 03/09/2025 9:47 AM EDT Patient Phone Message Reason for Call: Pt is calling to add two medications to his list-states he is having surgery on the and wantedto make sure they were documented as well Spironolactone 25mg Nifedipine ER 90mg Best contact number and optimal time of day to reach caller: [phone] Note: Please do not reply to this message. Follow-up communication and further actions as a result of this message need to be communicated with the patient directly, if the patient is not active onMyChart. If the patient is active on MyChart, they will receive notification of the communication/outcome via [employer]. documented in this encounter Plan of Treatment Upcoming Encounters Date Type Department Care Team (Latest Contact Info) Description 04/27/2025 7:30 AM EDT Hospital Encounter [facility] A OPERATING ROOM [address] [place] [address] Aarti Maldonado MD [address] [address] 04/27/2025 7:30 AM EDT - 04/27/2025 9:45 AM EDT Surgery PAV A OPERATING ROOM [address] [place] [address] Aarti Maldonado MD [address] [address] ENUCLEATION, PROSTATE, TRANSURETHRAL, USING HOLMIUM LASER [[id number] (CPT )] Scheduled Procedures Name Priority Associated [...] documented as of this encounter Care Teams Freelance Translator Relationship Specialty Start Date End Date Ryne Bergman MD [address] [place] [address] PCP - General 04/21/24 Abiola Loyola APRN [address] [address] Nurse Practitioner Urology 10/30/24 Aarti Maldonado MD [address] [address] Surgeon Urology 01/10/25 documented as of this encounter
--- OUTSIDE RECORDS SUMMARY | 2025-04-06 13:33 | XMS_ITS | Encounter Summary ---
Author Organization [facility] Address [address] [place] [address] Care Team Providers Care Hat Body Sorter Name Role Phone Ryne Bergman MD Primary Care Provider [phone] Abiola Loyola APRN Unavailable [phone] Aarti Maldonado MD Unavailable [phone] Encounter Details Date Type Department Care Team (Late st Contact Info) Description 10/30/2019 Orders Only External Location [address] [place] [address] Provider, External Social History Tobacco Use Types [...] Hospital Encounter PAV A OPERATING ROOM [address] [place] [address] Aarti Maldonado MD [address] [address] 04/27/2025 7:30 AM EDT - 04/27/2025 9:45 AM EDT Surgery PAV A OPERATING ROOM [address] [place] [address] Aarti Maldonado MD [address] [address] ENUCLEATION, PROSTATE, TRANSURETHRAL, USING HOLMIUM LASER [[id number] (CPT )] Scheduled Procedures Name Priority Associated [...] on filedocumented in this encounter Care Teams Hat Body Sorter Relationship Specialty Start Date End Date Ryne Bergman MD [address] [place] [address] PCP - General 04/21/24 Abiola Loyola APRN [address] [place] [address] Nurse Practitioner Urology 10/30/24 Aarti Maldonado MD [address] [place] [address] Surgeon Urology 01/10/25 documented as of this encounter
--- OUTSIDE RECORDS SUMMARY | 2025-04-06 13:33 | XMS_ITS | Encounter Summary ---
Author Organization [facility] Address [address] [place] [address] Care Team Providers Care Staff Cytotechnologist Name Role Phone Ryne Bergman MD Primary Care Provider [phone] Abiola Loyola ACCESS CLINICIAN Unavailable [phone] Aarti Maldonado MD Unavailable Reason for Visit * Reason Onset Date Comments 03/05/25 Urine culture results from [facility] 03/08/2025 Encounter Details Date Type Department Care Team (Late st Contact Info) Description 03/08/2025 Telephone [place] [facility] [address], [address]nd [place] [address] Aarti Maldonado MD [address] [place] [address] 03/05/25 Urine culture results from [facility] Social History Tobacco Use Types Packs/Day [...] AM EDT 03/05/25 Urine culture results from [facility] and have been uploaded to media. Thank you. documented in this encounter Plan of Treatment Upcoming Encounters Date Type Department Care Team (Latest Contact Info) Description 04/27/2025 7:30 AM EDT Hospital Encounter [facility]AV A OPERATING ROOM [address] [place] [address] Aarti Maldonado MD [address] [address] 04/27/2025 7:30 AM EDT - 04/27/2025 9:45 AM EDT Surgery PAV A OPERATING ROOM [address] [place] [address] Aarti Maldonado MD [address] [address] ENUCLEATION, PROSTATE, TRANSURETHRAL, USING HOLMIUM LASER [[id number] (CPT )] Scheduled Procedures Name Priority Associated [...] documented as of this encounter Care Teams Staff Cytotechnologist Relationship Specialty Start Date End Date Ryne Bergman MD [address] [place] [address] PCP - General 04/21/24 Abiola Loyola APRN [address] [facility] [place] [address] Nurse Practitioner Urology 10/30/24 Aarti Maldonado MD [address] [place] [address] Surgeon Urology 01/10/25 documented as of this encounter
--- OUTSIDE RECORDS SUMMARY | 2025-04-06 13:33 | XMS_ITS | Encounter Summary ---
Author Organization [facility] Address [address] [place] [address] Care Team Providers Care Environmental Compliance Officer Name Role Phone Ryne Bergman MD Primary Care Provider [phone] Abiola Loyola INSTITUTIONAL AIDE Unavailable [phone] Aarti Maldonado MD Unavailable [phone] Reason for Visit * Reason Onset Date Comments 03/09/25 Final Urine culture results 03/12/2025 Encounter Details Date Type Department Care Team (Late st Contact Info) Description 03/12/2025 Telephone [place] [facility] [address], [address] [place] [address] Aarti Maldonado MD [address] [place] [address] 03/09/25 Final Urine culture [...] Hospital Encounter PAV A OPERATING ROOM [address] [place] [address] Aarti Maldonado MD [address] [address] 04/27/2025 7:30 AM EDT - 04/27/2025 9:45 AM EDT Surgery PAV A OPERATING ROOM [address] [place] [address] Aarti Maldonado MD [address] [address] ENUCLEATION, PROSTATE, TRANSURETHRAL, USING HOLMIUM LASER [[id number] (CPT )] Scheduled Procedures Name Priority Associated [...] documented as of this encounter Care Teams Environmental Compliance Officer Relationship Specialty Start Date End Date Ryne Bergman MD [address] [facility] [place] [address] PCP - General 04/21/24 Abiola Loyola APRN [address] [place] [address] Nurse Practitioner Urology 10/30/24 Aarti Maldonado MD [address] [place] [address] Surgeon Urology 01/10/25 documented as of this encounter
--- OUTSIDE RECORDS SUMMARY | 2025-04-06 13:33 | XMS_ITS | Encounter Summary ---
Author Organization Healthcare Address [address] [place] [address] Care Team Providers Care Airborne Operations Manager Name Role Phone Ryne Bergman MD Primary Care Provider [phone] Abiola Loyola CLINICAL ACADEMIC ALLERGIST Unavailable [phone] Aarti Maldonado MD Unavailable [phone] Encounter Details Date Type Department Care Team (Late st Contact Info) Description 03/08/2025 Orders Only [facility] [address], [address] [place] [address] Aarti Maldonado MD [address] [place] [address] Microhematuria (Primary Dx) Social History [...] Hospital Encounter [facility] A OPERATING ROOM [address] [place] [address] Aarti Maldonado MD [address] [address] 04/27/2025 7:30 AM EDT - 04/27/2025 9:45 AM EDT Surgery [facility] OPERATING ROOM [address] [place] [address] Aarti Maldonado MD [address] [address] ENUCLEATION, PROSTATE, TRANSURETHRAL, USING HOLMIUM LASER [[id number] (CPT )] Scheduled Orders Name Type Priority Associated Diagnoses [...] documented as of this encounter Care Teams Airborne Operations Manager Relationship Specialty Start Date End Date Ryne Bergman MD [address] [place] [address] PCP - General 04/21/24 Abiola Loyola APRN [address] [address] Nurse Practitioner Urology 10/30/24 Aarti Maldonado MD [address] [place] [address] Surgeon Urology 01/10/25 documented as of this encounter
--- OUTSIDE RECORDS SUMMARY | 2025-04-06 13:33 | XMS_ITS | Encounter Summary ---
Author Organization Healthcare Address [address] [place] [address] Care Team Providers Care Monotype Caster Name Role Phone Ryne Bergman MD Primary Care Provider [phone] Abiola Loyola RELAY RECORD CLERK Unavailable [phone] Aarti Maldonado MD Unavailable [phone] Encounter Details Date Type Department Care Team (Late st Contact Info) Description 02/10/2024 Orders Only External Location [address] [place] [address] Nicole Bernstein, DO [address] [place] [address] Social History Tobacco Use Types [...] Hospital Encounter P[facility] A OPERATING ROOM [address] [place] [address] Aarti Maldonado MD [address] [facility] [address] [place] [address] 04/27/2025 7:30 AM EDT - 04/27/2025 9:45 AM EDT Surgery PAV A OPERATING ROOM [address] [place] [address] Aarti Maldonado MD [address] [place] [address] ENUCLEATION, PROSTATE, TRANSURETHRAL, USING HOLMIUM LASER [[id number] (CPT )] Scheduled Procedures Name Priority Associated [...] on filedocumented in this encounter Care Teams Monotype Caster Relationship Specialty Start Date End Date Ryne Bergman MD [address] [place], [place] [id number] PCP - General 04/21/24 Abiola Loyola APRN [address] [place] [address] Nurse Practitioner Urology 10/30/24 Aarti Maldonado MD [address] [place] [address] Surgeon Urology 01/10/25 documented as of this encounter
--- OUTSIDE RECORDS SUMMARY | 2025-04-06 13:34 | XMS_ITS | Clinical Summary ---
Author Organization [facility] Address [address] [place] [address] Care Team Providers Care [employer] Buffer Name Role Phone Ryne Bergman MD Primary Care Provider [phone] Abiola Loyola APRN Unavailable [phone] Aarti Maldonado MD Unavailable [phone] Allergies Active Allergy Reactions Criticality Noted Date [...] Type Department Care Team Description 04/02/2025 Telephone [facility] [address] [facility] 2nd [place] [address] Aarti Maldonado MD 03/23/2025 Telephone [facility] [address] [address] Aarti Maldonado MD 03/14/2025 2:45 PM EDT Pre-Admission Testing [facility] [address] [address] Preop examination (Primary Dx) 03/14/2025 Telephone [facility] [address] [address] Aarti Maldonado MD 03/14/2025 Travel 03/12/2025 8:03 AM EDT - 03/12/2025 11:59 PM EDT Hospital Encounter [facility] Radiology [address] [place] [address] Benign prostatic hyperplasia with urinary frequency Discharge Disposition: Home or Self Care 03/12/2025 7:40 AM EDT - 03/12/2025 8:02 AM EDT Hospital Encounter [facility] Radiology [address] [place] [address] Benign prostatic hyperplasia with urinary frequency Discharge Disposition: Home or Self Care 03/12/2025 Results Follow-Up Medical Office Building Urology [address] [facility], [address] [place] [address] Aarti Maldonado MD 03/12/2025 Telephone [facility] [address], [address] [place] [address] Aarti Maldonado MD 03/09/25 Final Urine culture results 03/12/2025 Travel 03/09/2025 Orders Only [facility] [address], [address] [place] [address] Aarti Maldonado MD 03/09/2025 Telephone [facility] [address], [address] [place] [address] Aarti Maldonado MD HCN Clinical Concern/Question 03/08/2025 Orders Only [facility] [address], [address]nd [place] [address] Aarti Maldonado MD Microhematuria (Primary Dx) 03/08/2025 Telephone [facility] [address], [address] [place] [address] Aarti Maldonado MD 03/05/25 Urine culture results from [facility] 02/13/2025 Telephone [facility] [address], [address] [place] [address] Aarti Maldonado MD 02/13/2025 Telephone [facility] [address], [address] [place] [address] Aarti Maldonado MD 01/15/2025 Telephone [facility] [address], [address] [place] [address] Aarti Maldonado MD 01/12/2025 Telephone [facility] [address], [address] [place] [address] Aarti Maldonado MD 01/10/2025 9:45 AM EDT Office Visit [facility] [address], [address] [place] [address] Aarti Maldonado MD Benign prostatic hyperplasia with urinary frequency (Primary Dx); Microhematuria 01/10/2025 Orders Only [facility] [address], [address]nd [place] [address] Aarti Maldonado MD 01/10/2025 Telephone [facility] [address], [address] [place] [address] Aarti Maldonado MD 01/10/2025 Travel 01/09/2025 Travel from Last 3 Months Immunizations Immunization Administration Dates Next Due Hep A, Adult 07/30/2018 Influenza, injectable, quadr ivalent, preservative free 08/24/2023,07/28/2022,08/23/2019,07/30 Pneumococcal 20-edinson Conj Vaccine 11/23/2023 Pneumococcal Polysaccharide PPV23 07/25/2018 Family History Medical History Relation Name Comments Cancer Father [place] Cash Hypertension Mother Tawnya Castrejon Kidney disease Mother Tawnya Castrejon Anesthesia problems Neg Hx Malig Hyperthermia Neg Hx Relation Name Status Comments Father [place] Ralph Mother Tawnya Castrejon Social History Tobacco Use [...] Hospital Encounter PAV A OPERATING ROOM [address] [place] [address] Aarti Maldonado MD [address] [address] 04/27/2025 7:30 AM EDT - 04/27/2025 9:45 AM EDT Surgery PAV A OPERATING ROOM [address] [place] [address] Aarti Maldonado MD [address] [address] ENUCLEATION, PROSTATE, TRANSURETHRAL, USING HOLMIUM LASER [[id number] (CPT )] Scheduled Procedures Name Priority Associated Diagnoses Date/Ti me ENUCLEATION, PROSTATE, TRANSURETHRAL, USING HOLMIUM LASER BPH (benign prostatic hyperplasia) 04/27/2025 7:30 AM EDT Health Maintenance Due Date Last [...] 2023 [facility]-Diabetes: Hemoglobin A1C 05/22/2024 11/23/2023, 07/28/2022 [id number] Vaccine ( season) 2024 03/07/2021, 02/07/2021 [facility]-Influenza Vaccine (#1) [...] on patient's age to complete this topic Procedures Procedure Name Priority Date/Time Associated Diagnosis [...] and 800 s/mm2 used to generate calculated l=8876 s/mm2 and ADC map; and an acquired high b =1400 s/mm2; axial 3D dynamic contrast-enhanced [id number] imaging with <10 sec temporal resolution were [...] 50 and 800 s/mm2 used to generatecalculated l=2845 s/mm2 and ADC map; and an acquired high b =1400 s/mm2;axial 3D dynamic contrast-enhanced [id number] imaging with <10 sectemporal resolution were acquired [...] MD IM MRI PROCEDURES Final Res ult * XR [...] Procedure discussed: discussed risks, benefits and alternatives Rate Analyst present: no Timeout: timeout called immediately prior to procedure Prep: patient was prepped and draped in usual sterile fashion Prep type: Betadine Anesthesia: local anesthesia Procedure Details Cystoscope type: flexible Cystoscopy route: transurethral Cystoscopy location: yuhaaviatam bladder Irrigation used: saline Position: supine Urethra [...] - 1.20 mg/dL 01/10/2025 1:54 PM EDT [facility] eGFRcr 96.2 mL/min/1.7 3m*2 01/10/2025 1:54 PM EDT [facility] Comment:Reported eGFRcr in m L/min/1.73m2 is based the CKD-EPI 2020 equation that does not use a race coefficient. Blood Venous blood specimen / Unknown Venipuncture / Unknown 01/10/2025 11:55 AM EDT 01/10/2025 11:55 AM EDT Aarti Maldonado MD LAB BLOOD ORDERABLES Final R esult [facility] [address] [place] [address] * POC US Bladder Volume (01/10/2025 10:21 AM EDT) Urine, Volume 76 mL IMAGING Anatomical Region Laterality Modality Other Aarti Maldonado MD IMG POINT OF CARE ULTRASOUND Final Result * (ABNORMAL) POCT URINALYSIS DIPSTICK (01/10/2025 10:01 AM EDT) POCT Urine Color Yellow 01/10/2025 10:03 AM EDT [facility] POCT Urine Clarity Clear 01/10/2025 10:03 AM EDT [facility] POCT Urine Glucose >=1000(A) Negative mg/dL 01/10/2025 10:03 AM EDT [facility] POCT Urine Bilirubin Negative Negative mg/dL 01/10/2025 10:03 AM EDT [facility] POCT Urine Ketones Negative Negative mg/dL 01/10/2025 10:03 AM EDT [facility] POCT Urine Specific [place] 1.020 1.005 - 1.030 01/10/2025 10:03 AM EDT [facility] POCT Urine Blood Negative Negative 01/10/2025 10:03 AM EDT [facility] POCT pH, Urine 5.5 5.0 - 8.0 01/10/2025 10:03 AM EDT [facility] POCT Protein, Urine Negative Negative mg/dL 01/10/2025 10:03 AM EDT [facility] PO[facility] Urobilinogen, Urine 0.2 0.2, 1.0 EU/dL 01/10/2025 10:03 AM EDT [facility] POCT Nitrite, Urine Negative Negative 01/10/2025 10:03 AM EDT [facility] POCT Urine Leukocyte Esterase Negative Negative 01/10/2025 10:03 AM EDT [facility] Urine 01/10/2025 10:0 1 AM EDT 01/10/2025 10:03 AM EDT us Aarti Maldonado MD LAB POINT OF CARE TE ST DOCKED DEVICE UNSOLICITED RESULTS Final Result [facility] [address] [place], [place] from Last 3 Months Insurance [facility] MEDICARE Care Teams [employer] Buffer Relationship Specialty Start Date End Date Ryne Bergman MD [address] [place] [address] PCP - General 04/21/24 Abiola Loyola APRN [address] [place] [address] Nurse Practitioner Urology 10/30/24 Aarti Maldonado MD [address] [place] [address] Surgeon Urology 01/10/25
--- OUTSIDE RECORDS SUMMARY | 2025-04-06 13:34 | XMS_ITS | Encounter Summary ---
Author Organization [facility] Address [address] [place] [address] Care Team Providers Care Laborer Cement Gun Placing Name Role Phone Ryne Bergman MD Primary Care Provider [phone] Abiola Loyola MIXING TANK OPERATOR Unavailable [phone] Aarti Maldonado MD Unavailable [phone] Encounter Details Date Type Department Care Team (Late st Contact Info) Description 03/14/2025 Telephone [facility] [address] [place] [address] Aarti Maldonado MD [address] [place] [address] Social History Tobacco Use Types [...] Encounter PAV A OPERATING ROOM [address] [place] [address] Aarti Maldonado MD [address] [address] 04/27/2025 7:30 AM EDT - 04/27/2025 9:45 AM EDT Surgery PAV A OPERATING ROOM [address] [place] [address] Aarti Maldonado MD [address] [address] ENUCLEATION, PROSTATE, TRANSURETHRAL, USING HOLMIUM LASER [[id number] (CPT )] Scheduled Procedures Name Priority Associated [...] documented as of this encounter Care Teams Laborer Cement Gun Placing Relationship Specialty Start Date End Date Ryne Bergman MD [address] [place] [address] PCP - General 04/21/24 Abiola Loyola APRN [address] [address] Nurse Practitioner Urology 10/30/24 Aarti Maldonado MD [address] [address] Surgeon Urology 01/10/25 documented as of this encounter
--- OUTSIDE RECORDS SUMMARY | 2025-04-06 13:34 | XMS_ITS | Encounter Summary ---
Author Organization [facility] Address [address] [place] [address] Care Team Providers Care Accountant Manager Name Role Phone Ryne Bergman MD Primary Care Provider [phone] Abiola Loyola CELL TENDER Unavailable [phone] Aarti Maldonado MD Unavailable [phone] Encounter Details Date Type Department Care Team ([facility] Contact Info) Description 03/12/2025 Results Follow-Up Medical Office Building Urology [facility] [address] [facility], [address] [place] [address] Aarti Maldonado MD [address] [place] [address] Social History Tobacco Use Types [...] Hospital Encounter PAV A OPERATING ROOM [address] [place] [address] Aarti Maldonado MD [address] [address] 04/27/2025 7:30 AM EDT - 04/27/2025 9:45 AM EDT Surgery PAV A OPERATING ROOM [address] [place] [address] Aarti Maldonado MD [address] [address] ENUCLEATION, PROSTATE, TRANSURETHRAL, USING HOLMIUM LASER [[id number] (CPT )] Scheduled Procedures Name Priority Associated [...] documented as of this encounter Care Teams Accountant Manager Relationship Specialty Start Date End Date Ryne Bergman MD [address] [place] [address] PCP - General 04/21/24 Abiola Loyola APRN [address] [address] Nurse Practitioner Urology 10/30/24 Aarti Maldonado MD [address] [address] Surgeon Urology 01/10/25 documented as of this encounter
--- OUTSIDE RECORDS SUMMARY | 2025-04-06 13:34 | XMS_ITS | Encounter Summary ---
Author Organization [facility] Address [address] [place] [address] Care Team Providers Care Senior Sql Server Developer Name Role Phone Ryne Bergman MD Primary Care Provider [phone] Abiola Loyola APRN Unavailable [phone] Aarti Maldonado MD Unavailable [phone] Encounter Details Date Type Department Care Team [...] Encounter PAV A OPERATING ROOM [address] [place] [address] Aarti Maldonado MD [address] [facility] [address] [place] [address] 04/27/2025 7:30 AM EDT - 04/27/2025 9:45 AM EDT Surgery PAV A OPERATING ROOM [address] [place] [address] Aarti Maldonado MD [address] [address] ENUCLEATION, PROSTATE, TRANSURETHRAL, USING HOLMIUM LASER [[id number] (CPT )] Scheduled Procedures Name Priority Associated [...] documented as of this encounter Care Teams Senior Sql Server Developer Relationship Specialty Start Date End Date Ryne Bergman MD [address] [place] [address] PCP - General 04/21/24 Abiola Loyola APRN [address] [address] Nurse Practitioner Urology 10/30/24 Aarti Maldonado MD [address] [address] Surgeon Urology 01/10/25 documented as of this encounter
--- OUTSIDE RECORDS SUMMARY | 2025-04-06 13:34 | XMS_ITS | Encounter Summary ---
Author Organization [facility] Address [address] [place] [address] Care Team Providers Care Extruder Name Role Phone Ryne Bergman MD Primary Care Provider [phone] Abiola Loyola APRN Unavailable [phone] Aarti Maldonado MD Unavailable [phone] Encounter Details Date Type Department Care Team (Late st Contact Info) Description 04/02/2025 Telephone [facility] [address]nd [place] [address] Aarti Maldonado MD [address] [place] [address] Social History Tobacco Use Types [...] Gonzales, [facility] documented in this encounter Plan of Treatment Upcoming Encounters Date Type Department Care Team (Latest Contact Info) Description 04/27/2025 7:30 AM EDT Hospital Encounter PAV A OPERATING ROOM [address] [place] [address] Aarti Maldonado MD [address] [employer] [employer] [address] [address] 04/27/2025 7:30 AM EDT - 04/27/2025 9:45 AM EDT Surgery PAV A OPERATING ROOM [address] [place] [address] Aarti Maldonado MD [address] [employer] [employer] [address] [address] ENUCLEATION, PROSTATE, TRANSURETHRAL, USING HOLMIUM LASER [[id number] (CPT )] Scheduled Orders Name Type Priority Associated Diagnoses Orde r Schedule Urine Culture Microbiology Routine Urine retention Expected: 04/02/2025 (Approximate), Expires: 10/04/2026 Scheduled Procedures Name Priority Associated Diagnoses Date/Ti me ENUCLEATION, PROSTATE, TRANSURETHRAL, USING HOLMIUM LASER BPH (benign prostatic hyperplasia) 04/27/2025 7:30 AM EDT documented as of this encounter Visit Diagnoses Diagnosis Urine retention- Primary Unspecified retention of urine BPH (benign prostatic hyperplasia) Unspecified hyperplasia of [...] documented as of this encounter Care Teams Extruder Relationship Specialty Start Date End Date Ryne Bergman MD [address] [place] [address] PCP - General 04/21/24 Abiola Loyola APRN [address] [address] Nurse Practitioner Urology 10/30/24 Aarti Maldonado MD [address] [facility] [place] [address] Surgeon Urology 01/10/25 documented as of this encounter
--- OUTSIDE RECORDS SUMMARY | 2025-04-06 13:34 | XMS_ITS | Encounter Summary ---
Author Organization [facility] Address [address] [place] [address] Care Team Providers Care Table Games Supervisor Name Role Phone Ryne Bergman MD Primary Care Provider [phone] Abiola Loyola APRN Unavailable [phone] Aarti Maldonado MD Unavailable [phone] Encounter Details Date Type Department Care Team (Late st Contact Info) Description 02/13/2025 Telephone [place] [facility] [address] 2nd [place] [address] Aarti Maldonado MD [address] [place] [address] Social History Tobacco Use Types [...] Hospital Encounter PAV A OPERATING ROOM [address] [place] [address] Aarti Maldonado MD [address] [employer] [address] [address] 04/27/2025 7:30 AM EDT - 04/27/2025 9:45 AM EDT Surgery PAV A OPERATING ROOM [address] [place] [address] Aarti Maldonado MD [address] [address] ENUCLEATION, PROSTATE, TRANSURETHRAL, USING HOLMIUM LASER [[id number] (CPT )] Scheduled Procedures Name Priority Associated [...] Start Date End Date Ryne Bergman MD [address] [place] [address] [place] [address] PCP - General 04/21/24 Abiola Loyola APRN [address] [address] Nurse Practitioner Urology 10/30/24 Aarti Maldonado MD [address] [address] Surgeon Urology 01/10/25 documented as of this encounter
--- OUTSIDE RECORDS SUMMARY | 2025-04-06 13:34 | XMS_ITS | Encounter Summary ---
Author Organization [facility] Address [address] [place] [address] Care Team Providers Care Stereo Compiler Name Role Phone Ryne Bergman MD Primary Care Provider [phone] Abiola Loyola SIDEROGRAPHER Unavailable [phone] Aarti Maldonado MD Unavailable [phone] Encounter Details Date Type Department Care Team (Late st Contact Info) Description 02/13/2025 Telephone [place] [facility] [address] [place] [address] Aarti Maldonado MD [address] [place] [address] Social History Tobacco Use Types [...] Hospital Encounter PAV A OPERATING ROOM [address] [place] [address] Aarti Maldonado MD [address] [address] 04/27/2025 7:30 AM EDT - 04/27/2025 9:45 AM EDT Surgery PAV A OPERATING ROOM [address] [place] [address] Aarti Maldonado MD [address] [address] ENUCLEATION, PROSTATE, TRANSURETHRAL, USING HOLMIUM LASER [00612 (CPT )] Scheduled Procedures Name Priority Associated [...] documented as of this encounter Care Teams Stereo Compiler Relationship Specialty Start Date End Date Ryne Bergman MD [address] [place] [address] PCP - General 04/21/24 Abiola Loyola APRN [address] [address] Nurse Practitioner Urology 10/30/24 Aarti Maldonado MD [address] [facility] [place] [address] Surgeon Urology 01/10/25 documented as of this encounter
[2025-04-10 16:12] LABS: Albumin, U 39.3 % (.); Alpha-1-Globulin, U 2.7 % (.); Alpha-2-Globulin, U 16.0 % (.); Beta Globulin, U 24.0 % (.); Gamma Globulin, U 17.9 % (.); Prot,24hr calculated 140 mg/24 hr (30-150)
[2025-04-11 14:05] LABS: PDF: SCANNED IMAGE
== END 2025-04-06 23:59 | disposition home or self-care (01) ==
LOC: LAB 13:31
PROVIDERS: PCP Family Medicine; Visit Provider Physician Assistant
DX: R06.09 Other forms of dyspnea (principal); I10 Essential (primary) hypertension; E11.9 Type 2 diabetes mellitus without complications; I25.10 Atherosclerotic heart disease of native coronary artery without angina pectoris; R93.1 Abnormal findings on diagnostic imaging of heart and coronary circulation; E78.49 Other hyperlipidemia; Z79.4 Long term (current) use of insulin
CPT/HCPCS: 84156; 84166; 86335

== ENCOUNTER 2025-04-10 08:27 | Day surgery (SDC) | payer MEDICARE, SELFPAY ==
[2025-04-10 08:45] VITALS: BP 144/66; PULSE 65; RESP 18; O2SAT 96; BMI 33.0
[2025-04-10] MEDS: BUPIVACAINE 0.25% 10ML INJ 25 MG IJ (08:51)
[2025-04-10] MEDS: LIDOCAINE 1% 5ML PF VIAL 5 ML (08:51)
[2025-04-10] MEDS: DEXAMETHASONE 10MG/ML 1ML VIAL 10 MG (08:51)
[2025-04-10 08:52] VITALS: BP 147/63; PULSE 66; RESP 18; O2SAT 96
[2025-04-10 08:55] VITALS: BP 147/63; PULSE 66; RESP 18; O2SAT 96
--- NOTE | 2025-04-10 08:57 | P.PCN_ITS ---
Procedure Date: 04/10/25 Time: 08:55 Anesthesiologist:: Lion Hinds CRNA Complications:: None Pre-procedure Diagnosis:: Bilateral trochanteric bursitis Post-procedure Diagnosis:: Same Indications for Procedure:: This patient is a pleasant 64-year-old male who comes our clinic today for bi lateral trochanteric bursa injections of cortisone local anesthetic. Patient describes bilateral lateral hip pain as constant, dull, sharp, stabbing. He is having difficulty with ambulation due to the stabbing pain in the lateral hip area bilaterally. He has extreme point tenderness over the bilateral trochanteric bursa. He rates his pain 8/10. Procedure Details:: Procedure: Bilateral trochanteric bursa joint injections under fluoroscopy Informed consent was obtained and the risks and benefits of the procedure were explained to the patient.~ The patient was taken to the procedure room and noninvasive monitors were placed including a noninvasive blood pressure cuff and pulse oximeter.~ The patient was placed prone on the procedure table. The area over the posterior hips was cleansed using chlorhexidine as a cleansing solution. Using fluoroscopy guidance the left trochanteric bursa was accessed with ease using a 22-gauge 3 and half inch spinal needle. 0.5 mL of contrast dye was injected to confirm the needle placement. At this time 3 cc of 1% lidocaine +3 cc of 0.25% Marcaine and 5 mg of dexamethasone was injected. The same procedure was carried out over the right trochanteric bursa. The patient tolerated the procedure without difficulty. There were no complications. Plan and Disposition:: Patient was discharged without incident.
[2025-04-10 09:03] VITALS: BP 120/60; PULSE 60; RESP 18; O2SAT 96
== END 2025-04-10 09:03 | disposition home or self-care (01) ==
PROVIDERS: PCP Family Medicine; Visit Provider Nurse Anesthetist, Certified Registered
DX: M70.62 Trochanteric bursitis, left hip (principal); M70.61 Trochanteric bursitis, right hip; F41.9 Anxiety disorder, unspecified; F32.A Depression, unspecified; I25.10 Atherosclerotic heart disease of native coronary artery without angina pectoris; E11.9 Type 2 diabetes mellitus without complications; I10 Essential (primary) hypertension; E78.49 Other hyperlipidemia; G47.30 Sleep apnea, unspecified; Z86.73 Personal history of transient ischemic attack (TIA), and cerebral infarction without residual deficits; F17.210 Nicotine dependence, cigarettes, uncomplicated; Z88.5 Allergy status to narcotic agent; Z88.8 Allergy status to other drugs, medicaments and biological substances; Z79.82 Long term (current) use of aspirin; Z79.4 Long term (current) use of insulin; Z79.899 Other long term (current) drug therapy
CPT/HCPCS: 20610; 77002; J0665; J1100; J2003

== ENCOUNTER 2025-04-13 15:43 | Outpatient (CLI) | payer MEDICARE, SELFPAY ==
--- OUTSIDE RECORDS SUMMARY | 2025-02-12 16:15 | XMS_ITS | Encounter Summary ---
[facility] Address [address] [place] [address] Care Team Providers Care Medical Records Specialist Name Role Phone Ryne Bergman MD Primary Care Provider + Reason for Visit * Reason Comments dizziness and weakness For the past two days Shortness of Breath Encounter Details Date Type Department Care Team (Late st Contact Info) Description 02/12/2025 4:15 PM EDT Office Visit [facility] [address] [place] [address] Ryne Bergman MD [address] [place] [address] Hypotension due to drugs (Primary Dx); Anemia, unspecified type; Restless legs syndrome (RLS) Social History Tobacco Use Types Packs/Day Years Used Date Smoking Tobacco: Some Days Cigarettes 1.5 15 Started: 05/28/1978; Last attempted to quit: 05/28/1993 Smokeless Tobacco: Never Tobacco Cessation:Ready to Q uit: Not Asked; Counseling Given: Not Answered Comments:Started smoking off and on while dealing with my parents deaths Alcohol Use Standard Drinks/Week Comments Not Currently 0 (1 standard drink = 0.6 oz pur e alcohol) PHQ-2 Answer Date Recorded Retired PHQ-9: Brief Depression Severity Measure Score 8 11/12/2022 PHQ-2 Answer Date Recorded Patient Health Questionnaire-2 Score 1 02/12/2025 Sex and Gender Information Value Date Recorded Sex Assigned at Male 12/03/2024 7:40 PM EDT Legal Sex Male 9:40 AM EDT Gender Identity Not on file Sexual Orientation Straight 12/03/2024 7: 40 PM EDT documented as of this encounter Last Filed Vital Signs Vital Sign Reading Time Taken Comments Blood Pressure 120/60 02/12/2025 4:18 PM EDT Pulse 81 02/12/2025 4:18 PM EDT Temperature 36.6 C (97.8 F) 02/12/2025 4:18 PM EDT Respiratory Rate 20 02/12/2025 4:18 PM EDT Oxygen Saturation 99% 02/12/2025 4:18 PM EDT Inhaled Oxygen Concentration - - Weight 105 kg (232 lb 6.4 oz) 02/12/2025 4:18 PM EDT Height 177.8 cm (5' 10 ) 02/12/2025 4:18 PM EDT Body Mass Index 33.35 02/12/2025 4:18 PM EDT documented in this encounter Functional Status documented as of this encounter Progress Notes * Ryne Bergman MD - 02/12/2025 4:15 PM EDT Chief Complaint Patient presents with dizziness and weakness For the past two days Shortness of Breath Subjective Ramsey Castrejon is a 64 y.o. who presents for an episode of dizziness, weakness, lightheadedness associated with a blood pressure of 108/60 that occurred 1 week after he had been prescribed nifedipine 60 mg. Patient also takes valsartan and HCTZ. He also reports over the last 48 to 72 hours increase in restless leg symptoms. Patient takes Mirapex. November labs showed a newly identified mild anemia. The following portions of the patient's history were reviewed and updated as appropriate: allergies, current medications, past family history, past medical history, past social history, past surgicalhistory, and problem list. Review of Systems Objective Vital Signs: BP 120/60 Pulse 81 Temp 97.8 ??F (36.6 ??C) Resp 20 Ht 177.8 cm (70 ) Wt 105 kg (232 lb 6.4 oz) SpO2 99% BMI 33.35 kg/m?? Physical Exam Constitutional: Appearance: Normal appearance. HENT: Head: Normocephalic and atraumatic. Right Ear: Tympanic membrane and ear canal normal. Left Ear: Tympanic membrane and ear canal normal. Nose: Nose normal. Mouth/Throat: Mouth: Mucous membranes are moist. Pharynx: Oropharynx is clear. Eyes: Conjunctiva/sclera: Conjunctivae normal. Cardiovascular: Rate and Rhythm: Normal rate and regular rhythm. Heart sounds: Normal heart sounds. No murmur heard. Pulmonary: Effort: Pulmonary effort is normal. No respiratory distress. Breath sounds: Normal breath sounds. Musculoskeletal: Cervical back: Normal range of motion and neck supple. No tenderness. Lymphadenopathy: Cervical: No cervical adenopathy. Skin: General: Skin is warm and dry. Neurological: Mental Status: He is alert. Psychiatric: Mood and Affect: Mood normal. Result Review The following data was reviewed by: Ryne Bergman MD on 02/12/2025: Data reviewed : Log Washer notes cardiology January 2025 Assessment and Plan Diagnoses and all orders for this visit: 1. Hypotension due to drugs (Primary) 2. Anemia, unspecified type - CBC (No Diff); Future - Ferritin; Future - Iron Profile; Future - Vitamin B12; Future 3. Restless legs syndrome (RLS) Plan 1. Hypotension is due to the addition of nifedipine. Blood pressure acceptable in office and recommended continue monitoring twice daily until he sees cardiology in follow-up in 2 days 2. Further anemia labs will be ordered. Low iron could result in increased restless leg symptoms Follow Up No follow-ups on file. Patient was given instructions and counseling regarding his condition or for health maintenance advice. Please see specific information pulled into the AVS if appropriate. documented in this encounter Plan of Treatment Upcoming Encounters Date Type Department Care Team (Late st Contact Info) Description 06/12/2025 3:00 PM EDT Office Visit [address] [place] [phone] Ryne Bergman MD [address] [place] [address] [place] [id number] 03/14/2026 2:15 PM EDT Office Visit [facility] [address] [place], [place] [address] Ryne Bergman MD [address] [place] [address] documented as of this encounter Visit Diagnoses Diagnosis Hypotension due to drugs- Primary Other iatrogenic hypotension Anemia, unspecified type Restless legs syndrome (RLS) documented in this encounter Additional Health Concerns Assessment Noted Time PHQ-2 Depression Total Score: 2 11/23/19 24 10:16 AM EST documented as of this encounter Care Teams Medical Records Specialist Relationship Specialty Start Date End Date Ryne Bergman MD [address] [place] [address] PCP - General Family Medicine 01/08/22 documented as of this encounter
--- OUTSIDE RECORDS SUMMARY | 2025-03-12 07:40 | XMS_ITS | Encounter Summary ---
Author Organization Healthcare Address [address] [id number] Care Team Providers Care Dock Operator Name Role Phone Ryne Bergman MD Primary Care Provider [phone] Abiola Loyola APRN Unavailable [phone] Aarti Maldonado MD Unavailable [phone] Reason for Referral * Imaging (Routine) - Closed Specialty Diagnoses / Procedures Referred By Kriss colin Referred To Contact Radiology Diagnoses Benign prostatic hyperplasia with urinary frequency Procedures MR Prostate w and wo IV Contrast Aarti Maldonado MD [address] [address] Phone: tel: fax: Referral ID Status Reason Start Date Expiration Date Visits Re quested Visits Authorized [id number] Closed 01/10/2025 07/12/2026 1 1 Reason for Visit * Imaging (Routine) - Closed Specialty Diagnoses / Procedures Referred By Kriss colin Referred To Contact Radiology Diagnoses Benign prostatic hyperplasia with urinary frequency Procedures MR Prostate w and wo IV Contrast Aarti Maldonado MD [address] [address] Phone: tel: fax: Referral ID Status Reason Start Date Expiration Date Visits Re quested Visits Authorized [id number] Closed 01/10/2025 07/12/2026 1 1 Encounter Details Date Type Department Care Team (Latest Contact Info) Description 03/12/2025 7:40 AM EDT - 03/12/2025 8:02 AM EDT Hospital Encounter [facility] Radiology [address] [place] [address] Benign prostatic hyperplasia with urinary frequency Discharge [...] Hospital Encounter [facility] OPERATING ROOM [address] [place] [address] Aarti Maldonado MD [address] [address] 04/27/2025 7:30 AM EDT - 04/27/2025 9:45 AM EDT Surgery [facility] RO[facility] [address] [place] [address] Aarti Maldonado MD [address] [address] ENUCLEATION, PROSTATE, TRANSURETHRAL, USING HOLMIUM LASER [[id number] (CPT )] Scheduled Procedures Name Priority Associated [...] and 800 s/mm2 used to generate calculated t=8333 s/mm2 and ADC map; and an acquired high b =1400 s/mm2; axial 3D dynamic contrast-enhanced A7eswyzcnr imaging with <10 sec temporal resolution were [...] 50 and 800 s/mm2 used to generatecalculated u=7031 s/mm2 and ADC map; and an acquired high b =1400 s/mm2;axial 3D dynamic contrast-enhanced L7gytdrhth imaging with <10 sectemporal resolution were acquired [...] documented as of this encounter Care Teams Dock Operator Relationship Specialty Start Date End Date Ryne Bergman MD [address] [place] [address] PCP - General 04/21/24 Abiola Loyola APRN [address] [place] [address] Nurse Practitioner Urology 10/30/24 Aarti Maldonado MD [address] [place] [address] Surgeon Urology 01/10/25 documented as of this encounter
--- OUTSIDE RECORDS SUMMARY | 2025-03-12 08:03 | XMS_ITS | Encounter Summary ---
Author Organization [facility] Address [address] [place] [address] Care Team Providers Care Blocker Polishing Name Role Phone Ryne Bergman MD Primary Care Provider [phone] Abiola Loyola APRN Unavailable [phone] Aarti Maldonado MD Unavailable [phone] Encounter Details Date Type Department Care Team (Latest Contact Info) Description 03/12/2025 8:03 AM EDT - 03/12/2025 11:59 PM EDT Hospital Encounter [facility] Radiology [address] [place] [address] Benign prostatic hyperplasia with urinary frequency Discharge [...] Hospital Encounter [facility] OPERATING ROOM [address] [place] [address] Aarti Maldonado MD [address] [address] 04/27/2025 7:30 AM EDT - 04/27/2025 9:45 AM EDT Surgery [facility] OPERATING ROOM [address] [place] [address] Aarti Maldonado MD [address] [address] ENUCLEATION, PROSTATE, TRANSURETHRAL, USING HOLMIUM LASER [[id number] (CPT )] Scheduled Procedures Name Priority Associated [...] documented as of this encounter Care Teams Blocker Polishing Relationship Specialty Start Date End Date Ryne Bergman MD [address] [place] [address] PCP - General 04/21/24 Abiola Loyola APRN [address] [facility] [address] [place] [address] Nurse Practitioner Urology 10/30/24 Aarti Maldonado MD [address] [place] [address] Surgeon Urology 01/10/25 documented as of this encounter
--- OUTSIDE RECORDS SUMMARY | 2025-03-12 14:15 | XMS_ITS | Encounter Summary ---
Author Organization [facility] yste Address [address] [place] [address] Care Team Providers Care Cornetist Name Role Phone Ryne Bergman MD Primary Care Provider + Reason for Referral * Health Education (Routine) - Authorized Specialty Diagnoses / Procedures Referred By Contchristopher t Referred To Contact Dietitian Diagnoses Type 2 diabetes mellitus with hyperglycemia, with long-term current use of insulin Procedures [place] OFFICE/OUTPATIENT NEW MODERATE MDM 45 MINUTES Ryne Bergman MD [address] [facility] [place] [address] Phone: tel: fax: [facility] - OUTPT PHYSICAL THERAPY [address] [place] [address] Phone: tel: fax: Referral ID Status Reason Start Date Expiration Date Visits Requested Visits Authorized [id number] Authorized Specialty Services Required 03/12/2025 06/11/2026 1 1 Scheduling Instructions Refer to Wedding Planner at [facility] Reason for Visit * Reason Comments Medicare Wellness-subsequent Pt not sure of all his BP medications Encounter Details Date Type Department Care Team (Late st Contact Info) Description 03/12/2025 2:15 PM EDT Office Visit [facility] [address] [place] [phone] Ryne Bergman [place] [address] Medicare annual wellness visit, subsequent [...] given forms for patient assistance program from [employer] for Ozempic. Patient will complete and return [...] admitted within the past 365 days at [facility]. Current Medical Providers: Patient Care Team: Ryne Bergman MD as PCP - General (Family Medicine) Sandrita Kate RN as Ambulatory Seating Upholsterer (Population Health) Outpatient Medications Prior to Visit [...] tablet Take 1 tablet by mouth Daily. Wanderable Verio test strip USE 1 STRIP TO [...] mouth Daily. 90 tablet 3 Continuous Glucose Nitroglycerin Nitrator Operator Batch ([employer] G7 Nitroglycerin Nitrator Operator Batch) device Use 1 each Daily. 1 each [...] CANCER SCREENING 04/11/2029 Pneumococcal Vaccine [address]+ [address] [facility] Preventative Services Quick Reference Risk Factors Identified [...] forms for patient assistance program from [employer] for Ozempic. Patient will complete and return [facility] office for faxing along with prescription for [...] Description 06/12/2025 3:00 PM EDT Office Visit [facility] [address] [address] Ryne Bergman MD [address] [place] [address] 03/14/2026 2:15 PM EDT Office Visit [facility] [address] [phone] Ryne Bergman [...] Hemoglobin A1C 8.3(A) 4.5 - 5.7 % [facility] Lot Number [id number] [facility] Expiration Date 11/13/2026 [facility] Blood 03/12/2025 2:55 PM EDT us Ryne Bergman MD POINT OF CARE TEST ORDER MICHELL Final Result [facility]
[address] [place] [id number], documented in this encounter Visit Diagnoses Diagnosis [...] documented as of this encounter Care Teams Cornetist Relationship Specialty Start Date End Date Ryne Bergman MD [address] [place] [address] PCP - General Family Medicine 01/08/22 documented as of this encounter
--- OUTSIDE RECORDS SUMMARY | 2025-03-14 14:45 | XMS_ITS | Encounter Summary ---
Author Organization [facility] Address [address] [place] [address] Care Team Providers Care Product Grader Name Role Phone Ryne Bergman MD Primary Care Provider [phone] Abiola Loyola APRN Unavailable [phone] Aarti Maldonado MD Unavailable [phone] Encounter Details Date Type Department Care Team (Latest Contact Info) Description 03/14/2025 2:45 PM EDT Pre-Admission Testing [facility] Pre[facility]op Clinic [address], [address] [place] [phone] Preop examination (Primary Dx) Social History Tobacco Use Types Packs/Day Years Used Date Smoking Tobacco: Some Days Cigarettes 0.3 1.3 Started: 03/27/2024 Passive Smoke Exposure: Current Smokeless Tobacco: Never Tobacco Cessation:Ready to Q uit: Not Asked; Counseling Given: Not Answered Comments:Working on quiting Alcohol Use Standard Drinks/Week Comments Not Currently [...] Sign Reading Time Taken Comments Blood Pressure 115/61 03/14/2025 2:24 PM EDT Pulse 71 03/14/2025 2:24 PM EDT Temperature 36.9 C (98.4 F) 03/14/2025 2:24 PM EDT Respiratory Rate - - Oxygen Saturation 94% 03/14/2025 2:24 PM EDT Inhaled Oxygen Concentration - - Weight 104 kg (229 lb 15 oz) 03/14/2025 2:24 PM EDT Height 175.3 cm (5' 9 ) 03/14/2025 2:24 PM EDT Body Mass Index 33.96 03/14/2025 2:24 PM EDT documented in this encounter Miscellaneous Notes * PAT Evaluation Note - Rl Lancaster APRN - 03/14/2025 2:45 PM EDT HPI Ramsey Castrejon is a 64 y.o. male who presents with Pre-op Diagnosis * BPH (benign prostatic hyperplasia) [N40.0] now scheduled for ENUCLEATION, PROSTATE, TRANSURETHRAL, USING HOLMIUM LASER (N/A) with Aarti Maldonado MD on 03/19/2025 in [facility] Past Medical History[1] Family History[2] Social History[3] SURGICAL HISTORY: Surgical History[4] Allergies[5] MEDICATIONS: Current Medications[6] ROS Anesthesia: Date of last anesthetic: 10+ years ago [place] history of previous anesthesia, motion sickness and obstructive sleep apnea (unable to tolerate machine). Does not have a history of anesthetic complications, malignant hyperthermia and PONV. Cardiovascular: dyspnea (with exhertion). Does not have angina, atrial fibrillation, CAD, CHF, dysrhythmias, hyperlipidemia, murmur, pacemaker, past UT or syncope. hypertension (patient reports cardiology is workingon getting blood pressure controlled): Patient has chest pain (went to [facility] in early february for chest pain with radiation. troponins normal in hospital and outpatient testing was recommended. He has not had any further episodes. Patient reports cardiology thinks it was due to HTN). Cardio additional comments: Can lay flat. No active cardiac complaints Patient reports he mows the yard and does work around the house. Does have to take breaks time to time Cards OV 03/13/25 Plan Due to his chest pain clarence lget him set up for a Kobi Myoview to rule out ischemia, he cannot walk on a treadmill due to fatigue and hip bursistis this needs to be done STAT because he has prostate surgery scheduled for Wednesday. Echo to look at LV function due to dyspnea STAT as well due to prostate surgery on wednesday RTC after testing Had echo and stress test 03/14/25- records requested . Respiratory: Does not have home oxygen. Patient has dyspnea (with exhertion).no asthma: no COPD: Has not had an upper respiratory infection in last 30 days. Has not had bronchitis in the last 30 days, pneumonia in the last 30 days, RSV in the last 30 days or COVID in the last 30 days. Respiratory ROS additional comments: Had a cough that lasted 4 days starting ~February 28. It was a dry cough. No wheezing or shortness of breath. No fever or bodyaches. Took some mucinex. He is back at baseline now. HEENT: missing teeth (front right tooth. several others missing).Does not have difficulty swallowing, chipped teeth or loose teeth.hearing loss (worse in left ear). Neurological: no seizures: Did not have a cerebrovascular accident.TIA (patient reports TIA ~2 months ago,. per cardiology note 01/2025 patient had likely TIA from vasospasm). Neuro additional comments: +bipolar disorder Musculoskeletal: Does not have cervical spine limited mobility. Musc/Skel/Integ additional comments: +bursitis in hips Integumentary: Negative skin ROS. Gastrointestinal: Does not have GERD.Does not have cirrhosis or hepatitis. obese. Genitourinary: Does not have chronic renal disease.BPH. Does not have renal disease. Hematological/Lymphatic: History of no DVT. History of no pulmonary embolism. Not in a hypercoagulable state. no history of chemotherapy no history of radiation Does not have HIV, MRSA or tuberculosis. Endocrine/Metabolic: diabetes mellitus type 2.well controlled. hgb a1c 7.9 fasting blood sugars in AM ~170-200 Does not have thyroid disorder. 03-05-25 03/11/25- provided by patient from his [facility] portal Na 137 K 4.2 Bun 25 Creat 1.0 Gfr 75 Glucose 174 Mag 2.0 Hgb A1c 7.9 03/10/25 Wbc 12.5 Rbc 4.29 Hgb 12.8 Hct 39.8 Platelet 246 Pt 10.5 PT/INR 0.94 No results found for: WBC , HGB , HCT , MCV , PLT Lab Results Component Value Date CREATININE 0.84 01/10/2025 Lab Results Component Value Date HGBA1C 6.9 (H) 11/23/2023 No results found for: INR , PROTIME Visit Vitals BP 115/61 Pulse 71 Temp 36.9 ??C (98.4 ??F) (Tympanic) Ht 1.753 m (5' 9 ) Wt 104 kg (229 lb 15 oz) SpO2 94% BMI 33.96 kg/m?? Smoking Status Some Days BSA 2.25 m?? EKG 03/11/25 65 bpm Sinus rhythm Nonspecific t wave abnormality No stemi 03-14-25ECHO LVEF 55% Trace mitral regurg Trace tricuspid regurgitation Trace pulmonic regurgitation Normal ventricular systolic function Increased overall thickness. Proximal septal thickening present IVSd. 1.4 cm Incidental finding of septal flow into the left ventricle possibly representing septal healthcare administration intern branch flow. No significant valvular stenosis or regurgitation In the setting of increased LV wall thickenss with proximal septal thickening of IVSd 1.4 cm, further evaluation with cardiac MRI ( H protocol is suggested. Also, in the setting of suspected septal healthcare administration intern branch flow, futher evaluation with coronary angiography is suggested Physical Exam Airway Mallampati: III Mouth opening: normal TM distance: >3 FB Neck ROM: limited Cardiovascular Rhythm: regular Rate: normal Dental Comments: Multiple missing teeth Pulmonary Breath sounds clear to auscultation Neurological Oriented: normal to place, normal to person and normal to time Skin Musculoskeletal Extremities Anesthesia Plan ASA 3 Anesthesia technique(s) discussed with the patient/family: general Comment: Discussed with Dr. Jones . Stress test results pending. After reviewing echo it appearsfurther cardiac testing needs to be done prior to procedure for cardiac clearance Notified coordinator (Anika Hackett) of this and she is going to reach out to the patient Update: stress test received and results as follows: Medium sized, moderate predominantly fixed perfusion defect in the anterior and anterolateral LV miller. There is a small region of reversibility towards the mid anterior LV wall. Findings are suggestive of partial reversible ischemia. Gated imagine demonstrates normal global LV systolic function. LVEF is calculated at 58%. Notified Anika Walls of this and she is going to call the patient to let him know his surgery willneed to be postponed until he gets cardiac clearance. Rl Lancaster, [employer] [1] Past Medical History: Diagnosis Date Benign prostatic hyperplasia Diabetes mellitus (CMS/HCC) Hypertension Urinary tract infection 2023 [2] Family History Problem Relation Name Age of Onset Hypertension Mother Tawnya Castrejon Kidney disease Mother Tawnya Castrejon Cancer Father [place] Anesthesia problems Neg Hx Mal[place] Hyperthermia Neg Hx [3] Social History Tobacco Use Smoking status: Some Days Current packs/day: 0.25 Average packs/day: 0.3 packs/day for 1.3 years (0.3 ttl pk-yrs) Types: Cigarettes Start date: 03/27/2024 Passive exposure: Current Smokeless tobacco: Never Tobacco comments: Working on quiting Vaping Use Vaping status: Former Substance Use Topics Alcohol use: Not Currently Alcohol/week: 1.0 standard drink of alcohol Comment: Very rarely drink Drug use: Never [4] Past Surgical History: Procedure Laterality Date CARPAL TUNNEL RELEASE Left CARPAL TUNNEL RELEASE Right CHOLECYSTECTOMY 2013 CYSTOSCOPY 2023 GALLBLADDER SURGERY NECK SURGERY TONSILLECTOMY ULNAR NERVE REPAIR Left [5] Allergies Allergen Reactions Morphine Hives, Itching, Rash and Swelling Oxybutynin Palpitations Increase BP [6] Current Outpatient Medications: albuterol, INHALE 1 PUFF BY MOUTH EVERY 6 HOURS aspirin, Take 1 tablet by mouth 1 time each day. diazePAM, Take 1 tablet by mouth every 8 hours as needed for anxiety (for MRI). finasteride, Take 1 tablet by mouth 1 time each day. FLUoxetine, Take 1 capsule by mouth 1 time each day. FLUoxetine, Take 1 capsule by mouth daily. HumaLOG MIX 75/25 KWIKPEN, INJECT 60 UNITS SUBCUTANEOUSLY ONCE IN THE MORNING, 30 UNITS AT NOON, AND 60 UNITS IN THE EVENING Jardiance, Take 1 tablet by mouth daily. metFORMIN XR, Take 1 tablet by mouth 1 time each day with dinner. metoprolol succinate XL, Take 1 tablet by mouth daily. NIFEdipine CC, Take 1 tablet by mouth daily before breakfast. Do not crush, chew, or split. pioglitazone, Take 1 tablet by mouth daily. potassium chloride CR, Take 1 tablet by mouth 1 time each day. rosuvastatin, Take 2 tablets by mouth 1 time each day. tamsulosin, Take 1 capsule by mouth 2 times a day. topiramate, Take 1 tablet by mouth 2 times a day. valsartan, Take 1 tablet by mouth 1 time each day. BD Pen Needle Rosalia 2nd Gen, USE 1 PEN SUBCUTANEOUSLY THREE TIMES DAILY WITH INJECTABLE MEDICATION hydrALAZINE, TAKE 1 TABLET BY MOUTH 4 TIMES DAILY NEEDED FOR BLOOD PRESSURE. TAKE 1 TABLET IF BLOOD PRESSURE GREATER THAN 180 OneTouch Verio, USE 1 STRIP TO CHECK GLUCOSE TWICE DAILY DIRECTED pramipexole, Take 1 tablet (1 mg) by mouth 1 (one) time each day. (Patient not taking: Reported on 03/14/2025) spironolactone, Take 1 tablet by mouth daily. (Patient not taking: Reported on 03/14/2025) * Preprocedure Instructions - Rl Lancaster APRN - 03/14/2025 2:45 PM EDT Home Medication Instructions Current Medications Medication Instructions albuterol 108 (90 Base) MCG/ACT inhaler Take as needed aspirin 81 MG EC tablet Take morning of surgery per Dr. Jones diazePAM (Valium) 5 MG tablet Take as needed finasteride (Proscar) 5 MG tablet Take morning of surgery FLUoxetine (PROzac) 20 MG capsule Take morning of surgery FLUoxetine (PROzac) 40 MG capsule Take morning of surgery HumaLOG MIX 75/25 KWIKPEN (75-25) 100 UNIT/ML injection pen Take 1/2 usual dose of your insulin thenight before surgery; check glucose morning of surgery if < 150= no insulin. If > 150= take 1/2 usual dose Jardiance 10 MG Hold 72 hours before surgery metFORMIN XR (Glucophage-XR) 750 MG 24 hr tablet Hold 48 hours before surgery metoprolol succinate XL (Toprol-XL) 25 MG 24 hr tablet Take morning of surgery NIFEdipine CC (Adalat CC) 60 MG 24 hr tablet Take morning of surgery pioglitazone (Actos) 45 MG tablet Hold day of surgery potassium chloride CR (K-Tab) 20 MEQ ER tablet Hold day of surgery rosuvastatin (Crestor) 10 MG tablet Take morning of surgery tamsulosin (Flomax) 0.4 MG 24 hr capsule Take morning of surgery topiramate (Topamax) 25 MG tablet Take morning of surgery valsartan (Diovan) 320 MG tablet Hold day of surgery General Preoperative Instructions You will be called the business day before surgery with your arrival time No food after midnight the night before surgery. You can drink clear liquids up to 2 hours prior to arrival. Please do not try to get all your hydration in 2 hours prior to arrival. Start the day before surgery drinking more than you usually would.After midnight, you can have clear liquids only (water, apple juice, Gatorade) up to 2 hours prior to arrival. No coffee or tea. No alcohol or smoking prior to surgery Arrive on time to avoid delays Parking/Registration procedure explained You MUST have a responsible adult available for transport to and from hospital Visitation policy for the day of surgery reviewed Bring insurance card, photo ID, along with power of straight knife cutter machine, guardianship or advanced directives if applicable Do not bring money, jewelry or other valuables Hibiclens bathing instructions reviewed if applicable Notify surgeon of fever, illness, any changes or if you decide not to have surgery Pediatric patients under 12 years of age (If applicable) No solid food or milk after midnight Formula 6 hours prior to arrival for surgery Breast milk 4 hours prior to arrival surgery Clear liquids 2 hours prior to arrival for surgery Diabetes Instructions (If applicable) Take diabetes medication as instructed You may have up to 4 ounces of apple juice 2 hours prior to arrival for surgery for low glucose documented in this encounter Plan of Treatment Upcoming Encounters Date Type Department Care Team (Latest Contact Info) Description 04/27/2025 7:30 AM EDT Hospital Encounter [facility] [address] [place] [address] Aarti Maldonado MD [id number] [place] [address] 04/27/2025 7:30 AM EDT - 04/27/2025 9:45 AM EDT Surgery [facility] [address] [place] [address] Aarti Maldonado MD [address] [place] [address] ENUCLEATION, PROSTATE, TRANSURETHRAL, USING HOLMIUM LASER [[id number] (CPT )] Scheduled Procedures Name Priority Associated Diagnoses Date/Ti ia ENUCLEATION, PROSTATE, TRANSURETHRAL, USING HOLMIUM LASER BPH (benign prostatic hyperplasia) 04/27/2025 7:30 AM EDT documented as of this encounter Visit Diagnoses Diagnosis Preop examination- Primary Unspecified pre-operative examination BPH (benign prostatic hyperplasia) Unspecified hyperplasia of [...] documented as of this encounter Care Teams Product Grader Relationship Specialty Start Date End Date Ryne Bergman MD [address] [place] [id number] PCP - General 04/21/24 Abiola Loyola APRN [address] [place] [address] Nurse Practitioner Urology 10/30/24 Aarti Maldonado MD [address] [place] [address] Surgeon Urology 01/10/25 documented as of this encounter
--- OUTSIDE RECORDS SUMMARY | 2025-04-13 15:45 | XMS_ITS | Encounter Summary ---
Author Organization [facility] yste Address [address] [place] [address] Care Team Providers Care Spray Unit Feeder Name Role Phone Ryne Bergman MD Primary Care Provider + Encounter Details Date Type Department Care Team (Late st Contact Info) Description 04/10/2025 Patient Outreach [facility]NA[facility], MARZENA [address] [place] [address] Social History Tobacco Use Types Packs/Day Years Used Date Smoking Tobacco: Some Days Cigarettes 1.5 15 Started: 05/28/1978; Last attempted to quit: 05/28/1993 Smokeless Tobacco: Never Comments:Started smoking off and on while dealing [...] PM EDT documented as of this encounter Nursing Notes * Sandrita Kate, RN - 04/10/2025 2:16 PM EDT Problem: Diabetes Type 2 Goal: Protect Myself From Diabetes Complications Outcome: Progressing Intervention: My Protect Myself From Diabetes Complications To Do List Description: Why is this important?Having diabetes puts you at risk for complications, such as kidney disease, heart disease, nerve damage and eye or dental problems.You can manage your risk by making healthy lifestyle choices and getting regular checkups. Flowsheets (Taken 04/10/2025 151) My Protect Myself From Diabetes Complications To Do List: (Patient states to be compliant with monitoring of blood sugars and has had diabetic diet teaching and voiced intent to exercise.) manage my weight Goal: Monitor My Blood Sugar Outcome: Progressing Intervention: My Blood Sugar Management To Do List Description: Why is this important?Checking your blood sugar (glucose) at home helps to keep it from getting very high or very low.Writing the results in a diary or log, or using an melvi, helps your diabetes care provider know how to care for you.Your blood sugar (glucose) log should have the time, date and results.Also write down the amount of insulin or other medicine that you take. Flowsheets (Taken 04/10/2025 151) My Blood Sugar Management To Do List: (Patient states to be compliant with monitoring of blood sugar with use of CGM.) -- Goal: Learn About Diabetes Outcome: Progressing Intervention: My Learn About Diabetes To Do List Description: Why is this important?Learning about diabetes can help you to manage it. Flowsheets (Taken 04/10/2025 151) My Learn About Diabetes To Do List: take a diabetes class Goal: Find Ways to Be Active Outcome: Progressing Intervention: My Activity To Do List Description: Why is this important?Being more active can help you to manage your blood sugar (glucose) levels.Being active can also help to prevent diabetes complications. Flowsheets (Taken 04/10/20251510) My Activity To Do List: (Patient voiced intent to exercise) -- Goal: Optimal Care Coordination of a Patient Experiencing Diabetes, Type 2 Outcome: Progressing Intervention: Alleviate Barriers to Glycemic Management Flowsheets (Taken 04/10/20251510) Alleviate Barriers to Glycemic Management: blood glucose monitoring encouraged participation in diabetes education classes encouraged Intervention: Monitor and Manage Follow-Up for Comorbidities Flowsheets (Taken 04/10/20251510) Monitor and Manage Follow-Up for Comorbidities: activity based on tolerance and functional limitations encouraged Intervention: Optimize Functional Ability Flowsheets (Taken 04/10/20251510) Optimize Functional Ability: self-care encouraged daily activity/exercise promoted Intervention: Support Wellbeing and Self-Management Success Flowsheets (Taken 04/10/20251510) Support Wellbeing and Self-Management Success: support and encouragement provided healthy lifestyle promoted documented in this encounter Miscellaneous Notes * Outreach Note - Sandrita Kate RN - 04/10/2025 2:16 PM EDT AMBULATORY CASE MANAGEMENT NOTE Names and Relationships of Patient/Support Persons: Contact: Ramsey Castrejon; Relationship: Self - Patient Outreach RN-ACM outreach with patient. Patient states to have received injections to both hips; stating to have had difficulty walking due to hip pain. Patient states to have had stress test and scheduled forMRI. Patient states to be compliant with medications; medical appointments; compliant with use of CGM regarding blood sugars and states to have improved diet. Patient states to have had operator automated process referral and received helpful information regarding diet. Patient states blood sugars WNL's and blood pressures WNL's. Patient states no difficulty with episodes of hypoglycemia and has glucose tablets. Patient states to have be scheduled for prostate surgery April 27. Patient states improvement regarding SOB and no difficulty with chest pain; appetite or sleeping. Reviewed with patient education andverbalized understanding. Patient states to appreciate outreach and requests additional outreach. No further questions voiced at this time. Education Documentation unresolved/worsening symptoms, taught by Sandrita Kate RN at 04/10/2025 2:55 PM. Learner: Patient Readiness: Acceptance Method: Explanation Response: Verbalizes Understanding blood glucose monitoring, taught by Sandrita Kate RN at 04/10/2025 2:55 PM. Learner: Patient Readiness: Acceptance Method: Explanation Response: Verbalizes Understanding healthy eating, taught by Sandrita Kate RN at 04/10/2025 2:55 PM. Learner: Patient Readiness: Acceptance Method: Explanation Response: Verbalizes Understanding Follow-Up Care, taught by Sandrita Kate RN at 04/10/2025 2:55 PM. Learner: Patient Readiness: Acceptance Method: Explanation Response: Verbalizes Understanding Continuous Glucose Monitoring (CGM), taught by Sandrita Kate RN at 04/10/2025 2:55 PM. Learner: Patient Readiness: Acceptance Method: Explanation Response: Verbalizes Understanding Sandrita Neumann Ambulatory Case Management 04/10/2025, 14:59 EDT documented in this encounter Plan of Treatment Upcoming Encounters Date Type Department Care Team (Late st Contact Info) Description 06/12/2025 3:00 PM EDT Office Visit [facility] [address] [place] [address] Ryne Bergman MD [address] [place] [address] 03/14/2026 2:15 PM EDT Office Visit [facility] [address] [place] [phone] Ryne Bergman MD [address] [place] [address] documented as of this encounter Visit Diagnoses Not on filedocumented in this encounter Additional Health Concerns Assessment Noted Time PHQ-2 Depression Total Score: 2 11/23/19 24 10:16 AM EST documented as of this encounter Care Teams Spray Unit Feeder Relationship Specialty Start Date End Date Pacheco, Ryne Javy, MD [address] [facility] [place] [address] PCP - General Family Medicine 01/08/22 documented as of this encounter
--- OUTSIDE RECORDS SUMMARY | 2025-04-13 15:45 | XMS_ITS | Encounter Summary ---
Author Organization [facility] Address [address] [place] [address] Care Team Providers Care Cap Jewel Plate Assembler Name Role Phone Ryne Bergman MD Primary Care Provider [phone] Abiola Loyola LADLE FILLER Unavailable [phone] Aarti Maldonado MD Unavailable [phone] Encounter Details Date Type Department Care Team (Late st Contact Info) Description 02/13/2025 Telephone [facility] [address], [address] [place] [address] Aarti Maldonado MD [address] [place] [address] Social History Tobacco Use Types [...] Hospital Encounter [facility] [address] [place] [address] Aarti Maldonado MD [address] [employer] [address] [address] 04/27/2025 7:30 AM EDT - 04/27/2025 9:45 AM EDT Surgery [facility] [address] [place] [address] Aarti Maldonado MD [address] [address] ENUCLEATION, PROSTATE, TRANSURETHRAL, USING HOLMIUM LASER [[id number] (CPT )] Scheduled Procedures Name Priority Associated [...] documented as of this encounter Care Teams Cap Jewel Plate Assembler Relationship Specialty Start Date End Date Ryne Bergman MD [address] [place] [address] PCP - General 04/21/24 Abiola Loyola APRN [address] [address] Nurse Practitioner Urology 10/30/24 Aarti Maldonado MD [address] [facility] [place] [address] Surgeon Urology 01/10/25 documented as of this encounter
--- OUTSIDE RECORDS SUMMARY | 2025-04-13 15:45 | XMS_ITS | Encounter Summary ---
[facility] Address [address] [place] [address] Care Team Providers Care Teacher Ballet Name Role Phone Ryne Bergman MD Primary Care Provider + Reason for Visit * Reason Comments Med Refill Encounter Details Date Type Department Care Team (Late st Contact Info) Description 03/24/2025 Refill [facility] [address] [place] [address] Ryne Bergman MD [address] [place] [address] Type 2 diabetes mellitus with hyperglycemia, with [...] PM EDT documented as of this encounter Plan of Treatment Upcoming Encounters Date Type Department Care Team (Late st Contact Info) Description 06/12/2025 3:00 PM EDT Office Visit [facility] [address] [place] [address] Ryne Bergman MD [address] [place] [address] 03/14/2026 2:15 PM EDT Office Visit [facility] [address] [place] [address] Ryne Bergman MD [address] [place] [address] documented as of this encounter Visit Diagnoses Diagnosis Type 2 diabetes mellitus with hyperglycemia, with long-term current use of insulin documented in this encounter Additional Health Concerns Assessment Noted Time PHQ-2 Depression Total Score: 2 11/23/19 24 10:16 AM EST documented as of this encounter Care Teams Teacher Ballet Relationship Specialty Start Date End Date yRne Bergman MD [address] [place] [address] PCP - General Family Medicine 01/08/22 documented as of this encounter
--- OUTSIDE RECORDS SUMMARY | 2025-04-13 15:46 | XMS_ITS | Encounter Summary ---
Author Organization [facility] Address [address] [place] [address] Care Team Providers Care Bone Puller Name Role Phone Ryne Bergman MD Primary Care Provider [phone] Abiola Loyola APRN Unavailable [phone] Aarti Maldonado MD Unavailable [phone] Encounter Details Date Type Department Care Team [...] Encounter [facility] [address] [place] [address] Aarti Maldonado MD [address] [facility] [address] [place] [address] 04/27/2025 7:30 AM EDT - 04/27/2025 9:45 AM EDT Surgery [facility] [address] [place] [address] Aarti Maldonado MD [address] [place] [address] ENUCLEATION, PROSTATE, TRANSURETHRAL, USING HOLMIUM LASER [[id number] (CPT )] Scheduled Procedures Name Priority Associated [...] documented as of this encounter Care Teams Bone Puller Relationship Specialty Start Date End Date Ryne Bergman MD [address] [place] [address] PCP - General 04/21/24 Abiola Loyola APRN [address] [place] [address] Nurse Practitioner Urology 10/30/24 Aarti Maldonado MD [address] [place] [address] Surgeon Urology 01/10/25 documented as of this encounter
--- OUTSIDE RECORDS SUMMARY | 2025-04-13 15:46 | XMS_ITS | Encounter Summary ---
Author Organization [facility] Address [address] [place] [address] Care Team Providers Care Roofing Plant Supervisor Name Role Phone Ryne Bergman MD Primary Care Provider [phone] Abiola Loyola FLOORWORKER LASTING Unavailable [phone] Aarti Maldonado MD Unavailable [phone] Reason for Visit * Reason Onset Date Comments 03/09/25 Final Urine culture results 03/12/2025 Encounter Details Date Type Department Care Team (Late st Contact Info) Description 03/12/2025 Telephone [facility] [address] [place] [address] Aarti Maldonado MD [address] [place] [address] 03/09/25 Final Urine culture results [...] Hospital Encounter [facility] RO[facility] [address] [place] [address] Aarti Maldonado MD [address] [address] 04/27/2025 7:30 AM EDT - 04/27/2025 9:45 AM EDT Surgery [facility] [address] [place] [address] Aarti Maldonado MD [address] [address] ENUCLEATION, PROSTATE, TRANSURETHRAL, USING HOLMIUM LASER [[id number] (CPT )] Scheduled Procedures Name Priority Associated [...] documented as of this encounter Care Teams Roofing Plant Supervisor Relationship Specialty Start Date End Date Ryne Bergman MD [address] [facility] [place] [address] PCP - General 04/21/24 Abiola Loyola APRN [address] [place] [address] Nurse Practitioner Urology 10/30/24 Aarti Maldonado MD [address] [place] [address] Surgeon Urology 01/10/25 documented as of this encounter
--- OUTSIDE RECORDS SUMMARY | 2025-04-13 15:46 | XMS_ITS | Encounter Summary ---
Author Organization [facility] Address [address] [place] [address] Care Team Providers Care Strategic Sourcing Manager Name Role Phone Ryne Bergman MD Primary Care Provider [phone] Abiola Loyola CARE SPECIALIST Unavailable [phone] Aarti Maldonado MD Unavailable [phone] Encounter Details Date Type Department Care Team (Late st Contact Info) Description 03/08/2025 Orders Only [place] [facility] [address], [address] [place] [address] Aarti Maldonado MD [address] [place] [address] Microhematuria (Primary Dx) Social History [...] Hospital Encounter [facility] [address] [place] [address] Aarti Maldonado MD [address] [address] 04/27/2025 7:30 AM EDT - 04/27/2025 9:45 AM EDT Surgery [facility] [address] [place] [address] Aarti Maldonado MD [address] [address] ENUCLEATION, PROSTATE, TRANSURETHRAL, USING HOLMIUM LASER [[id number] (CPT )] Scheduled Orders Name Type Priority [...] documented as of this encounter Care Teams Strategic Sourcing Manager Relationship Specialty Start Date End Date Ryne Bergman MD [address] [place] [address] PCP - General 04/21/24 Abiola Loyola APRN [address] [address] Nurse Practitioner Urology 10/30/24 Aarti Maldonado MD [address] [place] [address] Surgeon Urology 01/10/25 documented as of this encounter
--- OUTSIDE RECORDS SUMMARY | 2025-04-13 15:46 | XMS_ITS | Encounter Summary ---
[facility] Address [address] [place] [address] Care Team Providers Care Risk Control Officer Name Role Phone Ryne Bergman [...] PM EDT documented as of this encounter Functional Status documented as of this encounter Plan of Treatment Upcoming Encounters Date Type Department Care Team (Late st Contact Info) Description 06/12/2025 3:00 PM EDT Office Visit [facility] [address] [place] [phone] Ryne Bergman MD [address] [place] [address] 03/14/2026 2:15 PM EDT Office Visit [facility] [address] [place] [phone] Ryne Bergman MD [address] [place] [address] documented as of this encounter Visit Diagnoses Not on filedocumented in this encounter Additional Health Concerns Assessment Noted Time PHQ-2 Depression Total Score: 2 11/23/19 24 10:16 AM EST documented as of this encounter Care Teams Risk Control Officer Relationship Specialty Start Date End Date Ryne Bergman MD [address] [place] [address] PCP - General Family Medicine 01/08/22 documented as of this encounter
--- OUTSIDE RECORDS SUMMARY | 2025-04-13 15:46 | XMS_ITS | Encounter Summary ---
[facility] Address [address] [place] [address] Care Team Providers Care M48/M60 Tank Driver Name Role Phone Ryne Bergman MD Primary Care Provider + Encounter Details Date Type Department Care Team (Latest Contact Info) Description 02/12/2025 Travel Social History Tobacco Use Types Packs/Day [...] Description 06/12/2025 3:00 PM EDT Office Visit [facility] [address] [facility] [address] [place] [phone] Ryne Bergman MD [address] [place] [address] 03/14/2026 2:15 PM EDT Office Visit [facility] [address] [place] [phone] Ryne Bergman MD [address] [place] [address] documented as of this encounter Visit Diagnoses Not on filedocumented in this encounter Additional Health Concerns Assessment Noted Time PHQ-2 Depression Total Score: 2 11/23/19 24 10:16 AM EST documented as of this encounter Care Teams M48/M60 Tank Driver Relationship Specialty Start Date End Date Ryne Bergman MD [address] [place] [address] PCP - General Family Medicine 01/08/22 documented as of this encounter
--- OUTSIDE RECORDS SUMMARY | 2025-04-13 15:46 | XMS_ITS | Encounter Summary ---
Author Organization [facility] Address [address] [place] [address] Care Team Providers Care Cooker Meal Name Role Phone Ryne Bergman MD Primary Care Provider [phone] Abiola Loyola CAKE TESTER Unavailable [phone] Aarti Maldonado MD Unavailable [phone] Reason for Visit * Reason Onset Date Comments 03/05/25 Urine culture results from [facility] 03/08/2025 Encounter Details Date Type Department Care Team (Late st Contact Info) Description 03/08/2025 Telephone [place] [facility] [address], [address] [place] [address] Aarti Maldonado MD [address] [place] [address] 03/05/25 [facility] Social History Tobacco Use Types [...] AM EDT 03/05/25 Urine culture results from [facility] and have been uploaded to media. Thank you. documented in this encounter Plan of Treatment Upcoming Encounters Date Type Department Care Team (Latest Contact Info) Description 04/27/2025 7:30 AM EDT Hospital Encounter [facility]ATING ROOM [address] [place] [address] Aarti Maldonado MD [address] [address] 04/27/2025 7:30 AM EDT - 04/27/2025 9:45 AM EDT Surgery [facility] RO[facility] [address] [place] [address] Aarti Maldonado MD [address] [address] ENUCLEATION, PROSTATE, TRANSURETHRAL, USING HOLMIUM LASER [[id number] (CPT )] Scheduled Procedures Name Priority Associated [...] documented as of this encounter Care Teams Cooker Meal Relationship Specialty Start Date End Date Ryne Bergman MD [address] [place] [address] PCP - General 04/21/24 Abiola Loyola APRN [address] [facility]00 [place] [address] Nurse Practitioner Urology 10/30/24 Aarti Maldonado MD [address] [place] [address] Surgeon Urology 01/10/25 documented as of this encounter
--- OUTSIDE RECORDS SUMMARY | 2025-04-13 15:46 | XMS_ITS | Encounter Summary ---
Author Organization [facility] Address [address] [place] [address] Care Team Providers Care Livestock Nutrition Territory Manager Name Role Phone Ryne Bergman MD Primary Care Provider [phone] Abiola Loyola CHIEF INFORMATION SECURITY OFFICER Unavailable [phone] Aarti Maldonado MD Unavailable [phone] Encounter Details Date Type Department Care Team (Late st Contact Info) Description 02/10/2024 Orders Only External Location [address] [place] [address] Nicole Bernstein, DO [address] [place] [address] Social History Tobacco Use Types [...] Encounter [facility]ATING ROOM [address] [place] [address] Aarti Maldonado MD [address] [facility] [address] [place] [address] 04/27/2025 7:30 AM EDT - 04/27/2025 9:45 AM EDT Surgery [facility]ATING RO[facility] [address] [place] [address] Aarti Maldonado MD [address] [place] [address] ENUCLEATION, PROSTATE, TRANSURETHRAL, USING HOLMIUM LASER [[id number] (CPT )] Scheduled Procedures Name Priority Associated [...] on filedocumented in this encounter Care Teams Livestock Nutrition Territory Manager Relationship Specialty Start Date End Date Ryne Bergman MD [address] [place], [place] [id number] PCP - General 04/21/24 Abiola Loyola APRN [address] [place] [address] Nurse Practitioner Urology 10/30/24 Aarti Maldonado MD [address] [place] [address] Surgeon Urology 01/10/25 documented as of this encounter
--- OUTSIDE RECORDS SUMMARY | 2025-04-13 15:46 | XMS_ITS | Encounter Summary ---
Author Organization [facility] yste Address [address] [place] [address] Care Team Providers Care Mineral Industry Teacher Name Role Phone Ryne Bergman MD Primary Care Provider + Reason for Visit * Reason Comments Med Refill Encounter Details Date Type Department Care Team (Late st Contact Info) Description 03/02/2025 Refill [facility] [address] [place] [address] Ryne Bergman MD [address] [place] [address] Social History Tobacco Use Types Packs/Day Years [...] Description 06/12/2025 3:00 PM EDT Office Visit [facility] [address] [place] [address] Ryne Bergman MD [address] [place] [address] 03/14/2026 2:15 PM EDT Office Visit [facility] [address] [place] [address] Ryne Bergman MD [address] [place] [address] documented as of this encounter Visit Diagnoses Not on filedocumented in this encounter Additional Health Concerns Assessment Noted Time PHQ-2 Depression Total Score: 2 11/23/19 24 10:16 AM EST documented as of this encounter Care Teams Mineral Industry Teacher Relationship Specialty Start Date End Date Rnye Bergman MD [address] [place] [address] PCP - General Family Medicine 01/08/22 documented as of this encounter
--- OUTSIDE RECORDS SUMMARY | 2025-04-13 15:46 | XMS_ITS ---
[facility] Address [address] [place] [address] Care Team Providers Care Lubrication Technician Name Role Phone Ryne Bergman MD Primary Care Provider + High Risk Care Management Status:Engaged (Active) Start date:03/08/2025 Enrollment date:03/13/2025 Enrollment reason:Identified using claims or encounter data Related social drivers of health:Social Connections, Financial Resource Strain, Stress, Physical Activity, Food Insecurity, Transportation Needs, Housing Stability Overview Esa OLIVAS A1C Case Team Name Relationship Phone Sandrita Kate RN(Responsible Staff) Ambulator y Paddle Dyeing Machine Operator [phone] Continued Care and Services Coordination
--- OUTSIDE RECORDS SUMMARY | 2025-04-13 15:46 | XMS_ITS | Encounter Summary ---
Author Organization [facility] Address [address] [place] [address] Care Team Providers Care Software Database Architect Name Role Phone Ryne Bergman MD Primary Care Provider [phone] Abiola Loyola APRN Unavailable [phone] Aarti Maldonado MD Unavailable [phone] Encounter Details Date Type Department Care Team (Late st Contact Info) Description 04/02/2025 Telephone [place] [facility] [address], [address] [place] [address] Aarti Maldonado MD [address] [place] [address] Social History Tobacco Use Types [...] Hospital Encounter [facility] RO[facility] [address] [place] [address] Aarti Maldonado MD [address] [place] [address] [address] 04/27/2025 7:30 AM EDT - 04/27/2025 9:45 AM EDT Surgery [facility]PERATING RO[facility] [address] [place] [address] Aarti Maldonado MD [address] [place] [address] [address] ENUCLEATION, PROSTATE, TRANSURETHRAL, USING HOLMIUM LASER [[id number] (CPT )] Scheduled Orders Name Type Priority [...] documented as of this encounter Care Teams Software Database Architect Relationship Specialty Start Date End Date Ryne Bergman MD [address] [place] [address] PCP - General 04/21/24 Abiola Loyola APRN [address] [address] Nurse Practitioner Urology 10/30/24 Aarti Maldonado MD [address] [facility]00 [place] [address] Surgeon Urology 01/10/25 documented as of this encounter
--- OUTSIDE RECORDS SUMMARY | 2025-04-13 15:46 | XMS_ITS | Encounter Summary ---
Author Organization [facility] Address [address] [place] [address] Care Team Providers Care Underwriting Consultant Name Role Phone Ryne Bergman MD Primary Care Provider [phone] Abiola Loyola SULFIDE HEAD OPERATOR Unavailable [phone] Aarti Maldonado MD Unavailable [phone] Reason for Visit * Reason Onset Date Comments HCN Clinical Concern/Question 03/09/2025 Encounter Details Date Type Department Care Team (Late st Contact Info) Description 03/09/2025 Telephone [facility] [address], [address] [place] [address] Aarti Maldonado MD [address] [place] [address] HCN Clinical Concern/Question Social History [...] optimal time of day to reach caller: [phone] Note: Please do not reply to this message. Follow-up communication and further actions as a result of this message need to be communicated with the patient directly, if the patient is not active onMyChart. If the patient is active on MyChart, they will receive notification of the communication/outcome via [employer]. documented in this encounter Plan of Treatment Upcoming Encounters Date Type Department Care Team (Latest Contact Info) Description 04/27/2025 7:30 AM EDT Hospital Encounter [facility] [address] [place] [address] Aarti Maldoando MD [address] [address] 04/27/2025 7:30 AM EDT - 04/27/2025 9:45 AM EDT Surgery [facility] [address] [place] [address] Aarti Maldonado MD [address] [address] ENUCLEATION, PROSTATE, TRANSURETHRAL, USING HOLMIUM LASER [[id number] (CPT )] Scheduled Procedures Name Priority Associated [...] documented as of this encounter Care Teams Underwriting Consultant Relationship Specialty Start Date End Date Ryne Bergman MD [address] [place] [address] PCP - General 04/21/24 Abiola Loyola APRN [address] [address] Nurse Practitioner Urology 10/30/24 Aarti Maldonado MD [address] [address] Surgeon Urology 01/10/25 documented as of this encounter
--- OUTSIDE RECORDS SUMMARY | 2025-04-13 15:46 | XMS_ITS | Encounter Summary ---
Author Organization [facility] Address [address] [place] [address] Care Team Providers Care Paint Sprayer Sandblaster Name Role Phone Ryne Bergman MD Primary Care Provider [phone] Abiola Loyola MEDICAL RECORD TRANSCRIBER Unavailable [phone] Aarti Maldonado MD Unavailable [phone] Encounter Details Date Type Department Care Team ([facility] Contact Info) Description 03/12/2025 Results Follow-Up Medical Office Building Urology [facility] [address] [facility], [address] [place] [address] Aarti Maldonado MD [address] [place] [address] Social History Tobacco Use Types [...] Hospital Encounter [facility] [address] [place] [address] Aarti Maldonado MD [address] [address] 04/27/2025 7:30 AM EDT - 04/27/2025 9:45 AM EDT Surgery [facility] [address] [place] [address] Aarti Maldonado MD [address] [address] ENUCLEATION, PROSTATE, TRANSURETHRAL, USING HOLMIUM LASER [[id number] (CPT )] Scheduled Procedures Name Priority Associated [...] documented as of this encounter Care Teams Paint Sprayer Sandblaster Relationship Specialty Start Date End Date Ryne Bergman MD [address] [place] [address] PCP - General 04/21/24 Abiola Loyola APRN [address] [address] Nurse Practitioner Urology 10/30/24 Aarti Maldonado MD [address] [address] Surgeon Urology 01/10/25 documented as of this encounter
--- OUTSIDE RECORDS SUMMARY | 2025-04-13 15:46 | XMS_ITS | Encounter Summary ---
Author Organization [facility] Address [address] [place] [address] Care Team Providers Care Trial Court Judge Name Role Phone Ryne Bergman MD Primary Care Provider [phone] Abiola Loyola RECEIVING LEAD Unavailable [phone] Aarti Maldonado MD Unavailable [phone] Encounter Details Date Type Department Care Team (Late st Contact Info) Description 03/09/2025 Orders Only [facility] [address], [address] [place] [address] Aarti Maldonado MD [address] [place] [address] Social History Tobacco Use Types [...] Hospital Encounter [facility] [address] [place] [address] Aarti Maldonado MD [address] [address] 04/27/2025 7:30 AM EDT - 04/27/2025 9:45 AM EDT Surgery [facility] [address] [place] [address] Aarti Maldonado MD [address] [address] ENUCLEATION, PROSTATE, TRANSURETHRAL, USING HOLMIUM LASER [[id number] (CPT )] Scheduled Procedures Name Priority Associated [...] as of this encounter Care Teams Trial Court Judge Relationship Specialty Start Date End Date Ryne Bergman MD [address] [place] [address] PCP - General 04/21/24 Abiola Loyola APRN [address] [place] [address] Nurse Practitioner Urology 10/30/24 Aarti Maldonado MD [address] [place] [address] Surgeon Urology 01/10/25 documented as of this encounter
--- OUTSIDE RECORDS SUMMARY | 2025-04-13 15:46 | XMS_ITS | Encounter Summary ---
Author Organization [facility] Address [address] [place] [address] Care Team Providers Care Damascener Name Role Phone Ryne Bergman MD Primary Care Provider + Reason for Visit * Reason Comments Med Refill Encounter Details Date Type Department Care Team (Late st Contact Info) Description 04/02/[address] [facility] [address] [place] [address] Ryne Bergman MD [address] [place] [address] Type 2 diabetes mellitus with hyperglycemia, with long-term current use of insulin Social History Tobacco Use Types Packs/Day Years Used Date Smoking Tobacco: Some Days Cigarettes 3 15 Started: 05/28/1978; Last attempted to quit: 05/28/1993 Smokeless Tobacco: Never Comments:Started smoking off and on while dealing with my parents deaths Alcohol Use Standard Drinks/Week Comments Not Currently 0 (1 standard drink = 0.6 oz pur e alcohol) PHQ-2 Answer Date Recorded Retired PHQ-9: Brief Depression Severity Measure Score 8 11/12/2022 PHQ-2 Answer Date Recorded Retired PHQ-9: Brief Depression Severity Measure Score 8 11/12/2022 Sex and Gender Information Value Date Recorded Sex Assigned at Male 12/03/2024 7:40 PM EDT Legal Sex Male 9:40 AM EDT Gender Identity Not on file Sexual Orientation Straight 12/03/2024 7: 40 PM EDT documented as of this encounter Plan of Treatment Upcoming Encounters Date Type Department Care Team (Late st Contact Info) Description 06/12/2025 3:00 PM EDT Office Visit [facility] [address] [place] [address] Ryne Bergman MD [address] [place] [address] 03/14/2026 2:15 PM EDT Office Visit [facility] [address] [place] [address] Ryne Bergman MD [address] [place] [address] documented as of this encounter Visit Diagnoses Diagnosis Type 2 diabetes mellitus with hyperglycemia, with long-term current use of insulin documented in this encounter Additional Health Concerns Assessment Noted Time PHQ-2 Depression Total Score: 2 11/12/19 23 12:00 PM EST documented as of this encounter Care Teams Damascener Relationship Specialty Start Date End Date Ryne Bergman MD [address] [place] [address] PCP - General Family Medicine 01/08/22 documented as of this encounter
--- OUTSIDE RECORDS SUMMARY | 2025-04-13 15:46 | XMS_ITS | Encounter Summary ---
Author Organization [facility] Address [address] [place] [address] Care Team Providers Care Physician Relations Representative Name Role Phone Ryne Bergman MD Primary Care Provider [phone] Abiola Loyola APRN Unavailable [phone] Aarti Maldonado MD Unavailable [phone] Encounter Details Date Type Department Care Team (Late st Contact Info) Description 02/13/2025 Telephone [place] [facility] [address], [address] [place] [address] Aarti Maldonado MD [address] [place] [address] Social History Tobacco Use Types [...] Hospital Encounter [facility] [address] [place] [address] Aarti Maldonado MD [address] [address] 04/27/2025 7:30 AM EDT - 04/27/2025 9:45 AM EDT Surgery [facility] [address] [place] [id number] Aarti Maldonado MD [address] [address] ENUCLEATION, PROSTATE, TRANSURETHRAL, USING HOLMIUM LASER [[id number] (CPT )] Scheduled Procedures Name Priority Associated [...] documented as of this encounter Care Teams Physician Relations Representative Relationship Specialty Start Date End Date Ryne Bermgan MD [address] [place] [address] [place] [address] PCP - General 04/21/24 Abiola Loyola APRN [address] [address] Nurse Practitioner Urology 10/30/24 Aarti Maldonado MD [address] [phone] Surgeon Urology 01/10/25 documented as of this encounter
--- OUTSIDE RECORDS SUMMARY | 2025-04-13 15:46 | XMS_ITS | Encounter Summary ---
Author Organization [facility] Address [address] [place] [address] Care Team Providers Care Vp Product Marketing Name Role Phone Ryne Bergman MD Primary Care Provider [phone] Abiola Loyola APRN Unavailable [phone] Aarti Maldonado MD Unavailable [phone] Encounter Details Date Type Department Care Team (Late st Contact Info) Description 10/30/2019 Orders Only External Location [address] [place] [address] Provider, External Social History Tobacco Use Types [...] Hospital Encounter [facility] [address] [place] [address] Aarti Maldonado MD [address] [phone] 04/27/2025 7:30 AM EDT - 04/27/2025 9:45 AM EDT Surgery [facility] [address] [place] [address] Aarti Maldonado MD [address] [address] ENUCLEATION, PROSTATE, TRANSURETHRAL, USING HOLMIUM LASER [[id number] (CPT )] Scheduled Procedures Name Priority Associated [...] on filedocumented in this encounter Care Teams Vp Product Marketing Relationship Specialty Start Date End Date Ryne Bergman MD [address] [place] [address] PCP - General 04/21/24 Abiola Loyola APRN [address] [place] [address] Nurse Practitioner Urology 10/30/24 Aarti Maldonado MD [address] [place] [address] Surgeon Urology 01/10/25 documented as of this encounter
--- OUTSIDE RECORDS SUMMARY | 2025-04-13 15:47 | XMS_ITS | Encounter Summary ---
Author Organization [facility] Address [address] [place] [address] Care Team Providers Care Digital Solutions Architect Name Role Phone Ryne Bergman MD Primary Care Provider + Encounter Details Date Type Department Care Team (Late st Contact Info) Description 02/04/2025 Results Follow-Up [facility] [address] [place] [address] Ryne Bergman MD [address] [place] [address] Social History Tobacco Use Types [...] Retired PHQ-9: Brief Depression Severity Measure Score 3 11/23/2023 Sex and Gender Information Value Date Recorded Sex Assigned at Male 12/03/2024 7:40 PM EDT Legal Sex Male 9:40 AM EDT Gender Identity Not on file Sexual Orientation Straight 12/03/2024 7: 40 PM EDT documented as of this encounter Plan of Treatment Upcoming Encounters Date Type Department Care Team (Late st Contact Info) Description 06/12/2025 3:00 PM EDT Office Visit [facility] [address] [place] [address] Ryne Bergman MD [address] [place] [address] 03/14/2026 2:15 PM EDT Office Visit [facility] [address] [place] [address] Ryne Bergman MD [address] [place] [address] documented as of this encounter Visit Diagnoses Not on filedocumented in this encounter Additional Health Concerns Assessment Noted Time PHQ-2 Depression Total Score: 2 11/23/19 24 10:16 AM EST documented as of this encounter Care Teams Digital Solutions Architect Relationship Specialty Start Date End Date Ryne Bergman MD [address] [place] [address] PCP - General Family Medicine 01/08/22 documented as of this encounter
--- OUTSIDE RECORDS SUMMARY | 2025-04-13 15:47 | XMS_ITS | Encounter Summary ---
Author Organization [facility] Address [address] [place] [address] Care Team Providers Care Camp Boss Name Role Phone Ryne Bergman MD Primary Care Provider [phone] Abiola Loyola COMPUTER TECHNOLOGY TEACHER Unavailable [phone] Aarti Maldonado MD Unavailable [phone] Encounter Details Date Type Department Care Team (Late st Contact Info) Description 03/14/2025 Telephone [place] [facility] [address], [address] [place] [address] Aarti Maldonado MD [address] [place] [address] Social History Tobacco Use Types [...] Hospital Encounter [facility] [address] [place] [address] Aarti Maldonado MD [address] [address] 04/27/2025 7:30 AM EDT - 04/27/2025 9:45 AM EDT Surgery [facility] [address] [place] [address] Aarti Maldonado MD [address] [address] ENUCLEATION, PROSTATE, TRANSURETHRAL, USING HOLMIUM LASER [[id number] (CPT )] Scheduled Procedures Name Priority Associated [...] documented as of this encounter Care Teams Camp Boss Relationship Specialty Start Date End Date Ryne Bergman MD [address] [place] [address] PCP - General 04/21/24 Abiola Loyola APRN [address] [address] Nurse Practitioner Urology 10/30/24 Aarti Maldonado MD [address] [address] Surgeon Urology 01/10/25 documented as of this encounter
--- OUTSIDE RECORDS SUMMARY | 2025-04-13 15:47 | XMS_ITS | Encounter Summary ---
Author Organization [facility] Address [address] [place] [address] Care Team Providers Care Passenger Train Braker Name Role Phone Ryne Bergman MD Primary Care Provider [phone] Abiola Loyola CATTLE TRADER Unavailable [phone] Aarti Maldonado MD Unavailable [phone] Encounter Details Date Type Department Care Team (Late st Contact Info) Description 03/23/2025 Telephone [facility] [address], [address] [place] [address] Aarti Maldonado MD [address] [place] [address] Social History Tobacco Use Types [...] Hospital Encounter [facility] RO[facility] [address] [place] [address] Aarti Maldonado MD [address] [address] 04/27/2025 7:30 AM EDT - 04/27/2025 9:45 AM EDT Surgery [facility] RO[facility] [address] [place] [address] Aarti Maldonado MD [address] [address] ENUCLEATION, PROSTATE, TRANSURETHRAL, USING HOLMIUM LASER [[id number] (CPT )] Scheduled Procedures Name Priority Associated [...] documented as of this encounter Care Teams Passenger Train Braker Relationship Specialty Start Date End Date Ryne Bergman MD [address] [place] [address] PCP - General 04/21/24 Abiola Loyola APRN [address] [address] Nurse Practitioner Urology 10/30/24 Aarti Maldonado MD [address] [address] Surgeon Urology 01/10/25 documented as of this encounter
--- OUTSIDE RECORDS SUMMARY | 2025-04-13 15:47 | XMS_ITS | Clinical Summary ---
Author Organization [facility] yste Address [address] [place] [address] Care Team Providers Care Patient Access Manager Name Role Phone Ryne Bergman MD Primary Care Provider + Allergies Active Allergy Reactions Criticality Noted Date Comments Morphine Hives,Rash Low 01/08/2022 Oxybutynin Palpitations High 10/30/2024 Increase BP Medications potassium chloride ER (K-TAB) 20 MEQ tablet controlled-relea se ER tabletIndication s:Primary hypertension Take 1 tablet by mouth Daily. with food. 90 tablet 11 11/23/19 24 Active OneTouch Verio test stripIndications :Type 2 diabetes mellitus with hyperglycemia, with long-term current use of insulin USE 1 STRIP TO CHECK GLUCOSE TWICE DAILY DIRECTED 100 each 3 06/14/20 24 Active pramipexole (MIRAPEX) 1 MG tabletIndication s:Restless legs syndrome (RLS) Take 1 tablet by mouth Every Night. 30 tablet 11 08/03/20 24 Active finasteride (PROSCAR) 5 MG tablet Take 1 tablet by mouth Daily. Active albuterol sulfate HFA 108 (90 Base) MCG/ACT inhaler INHALE 1 PUFF BY MOUTH EVERY 6 HOURS 11/18/19 25 Active tamsulosin (FLOMAX) 0.4 MG capsule 24 hr capsule Take 1 capsule by mouth Daily. Twice daily 12/05/19 25 Active FLUoxetine (PROzac) 20 MG capsuleIndicatio ns:Bipolar disorder with moderate depression Take 1 capsule by mouth Daily. 90 capsule 3 12/05/19 25 Active FLUoxetine (PROzac) 40 MG capsuleIndicatio ns:Bipolar disorder with moderate depression Take 1 capsule by mouth Daily. 90 capsule 3 12/05/19 25 Active Insulin Lispro Prot & Lispro (HumaLOG Mix 75/25 KwikPen) (75-25) 100 UNIT/ML suspension pen-injector penIndications:T ype 2 diabetes mellitus with hyperglycemia, with long-term current use of insulin 60 units in a.m, 30 units at noon, 60 units in the evening 50 mL 12/05/19 25 Active Insulin Pen Needle 32G X 4 MM miscIndications: Type 2 diabetes mellitus with hyperglycemia, with long-term current use of insulin 1 needle three times daily with injectable medication 90 each 12/05/19 25 Active metFORMIN ER (GLUCOPHAGE-XR) 750 MG 24 hr tabletIndication s:Type 2 diabetes mellitus with hyperglycemia, with long-term current use of insulin Take 1 tablet by mouth Daily With Breakfast. 30 tablet 12/05/19 25 Active pioglitazone (ACTOS) 45 MG tabletIndication s:Type 2 diabetes mellitus with hyperglycemia, with long-term current use of insulin Take 1 tablet by mouth Daily. 30 tablet 12/05/19 25 Active valsartan (Diovan) 320 MG tabletIndication s:Primary hypertension Take 1 tablet by mouth Daily. 90 tablet 3 12/05/19 25 Active rosuvastatin (Crestor) 20 MG tabletIndication s:Type 2 diabetes mellitus with hyperglycemia, with long-term current use of insulin Take 1 tablet by mouth Daily. 90 tablet 1 01/16/20 25 Active aspirin 81 MG EC tabletIndication s:TIA (transient ischemic attack) Take 1 tablet by mouth Daily. 01/16/20 25 Active Continuous Glucose Sensor (FreeStyle Yuliya 3 Plus Sensor)Indicatio ns:Type 2 diabetes mellitus with hyperglycemia, with long-term current use of insulin,Type 2 diabetes mellitus with hypoglycemia without coma, with long-term current use of insulin,Long-ter m insulin use Use Every 14 (Fourteen) Days. 2 each 01/24/20 25 Active NIFEdipine CC (ADALAT CC) 60 MG 24 hr tablet Take 1 tablet by mouth Daily. 02/06/20 25 Active topiramate (TOPAMAX) 25 MG tablet Take 1 tablet by mouth twice daily 60 tablet 5 03/02/20 25 Active empagliflozin (Jardiance) 10 MG tablet tabletIndication s:Type 2 diabetes mellitus with hyperglycemia, with long-term current use of insulin Take 1 tablet by mouth once daily 30 tablet 3 03/26/20 25 Active empagliflozin (Jardiance) 10 MG tablet tabletIndication s:Type 2 diabetes mellitus with hyperglycemia, with long-term current use of insulin Take 1 tablet by mouth Daily. 30 tablet 3 12/05/19 25 025 Discontinued Active Problems Problem Noted Date Diagnosed Date BPH with obstruction/lower urinary tract symptom s 02/22/2024 Primary hypertension 11/12/2022 Assessment & Plan (08/24/2023 3:47 PM EST): Hypertension is unchanged. Medication changes per orders. Discontinue lisinopril in favor of valsartan 160 mg daily Blood pressure will be reassessed in 3 months. Class 1 obesity due to exces s calories with serious comorbidity and body mass index (BMI) of 34.0 to 34.9 in adult 04/09/2022 Bipolar disorder with moderate depression 2021 Type 2 diabetes mellitus wit h hyperglycemia, with long-term current use of insulin 01/07/2022 Assessment & Plan (03/12/2025 3:33 PM EDT): Diabetes control has improved. Patient would benefit from use of GLP-1 agonist and he was given forms for patient assistance program from [employer] for Ozempic. Patient will complete and return to the office for faxing along with prescription for Ozempic. Continue to utilize CGM Orders: POC Glycosylated Hemoglobin (Hb A1C) Ambulatory Referral to Nutrition Services Assessment & Plan (12/05/2024 7:46 AM EDT): Patient has had mild improvement but diabetes remains uncontrolled. Add Jardiance 10 mg and Ozempic. Prescription sent to the pharmacy to assess affordability. If medications cannot be taken due to cost we will need to change insulin regimen to a basal bolus regimen. He may temporarily set metformin to the side due to the diarrhea he is experiencing. Assessment & Plan (08/24/2023 3:47 PM EST): Diabetes is improving with treatment. Medication changes per orders. Increase Ozempic to 1 mg weekly Diabetes will be reassessed in 3 months. Assessment & Plan (11/12/2022 12:45 PM EST): Diabetes is improving with treatment. Medication changes per orders. Diabetes will be reassessed in 3 months. If covered by insurance I would prefer to change the patient to Ozempic for glucose control and he may benefit from some weight loss with a change to this medication. Prescription has been sent to the pharmacy and patient will call with feedback if the medication is covered. Assessment & Plan (08/06/2022 3:25 PM EST): Diabetes is worsening. Medication changes per orders. Diabetes will be reassessed at next scheduled visit. Resolved Problems Problem Noted Date Diagnosed Date Resolved Date Injury of tendon of long head of right biceps 04/09/20 22 04/09/2022 Encounters Date Type Department Care Team Description 04/10/2025 Patient Outreach [facility]NA[facility] Sandrita Logan RN 03/24/[address] [facility] [address] [phone] Ryne Bergman MD Type 2 diabetes mellitus with hyperglycemia, with long-term current use of insulin 03/13/2025 Patient Outreach [facility]NA[facility] Sandrita Logan RN 03/12/2025 2:15 PM EDT Office Visit [facility] [address] [phone] Ryne Bergman MD Medicare annual wellness visit, subsequent (Primary Dx); Annual physical exam; Type 2 diabetes mellitus with hyperglycemia, with long-term current use of insulin 03/12/2025 Travel 03/02/[address] [facility] [address] [address] Ryne Bergman MD 02/12/2025 4:15 PM EDT Office Visit [facility] [address] [address] Ryne Bergman MD Hypotension due to drugs (Primary Dx); Anemia, unspecified type; Restless legs syndrome (RLS) 02/12/2025 Travel 02/08/[address] [facility] [address] [place], [place] [address] Ryne Bergman MD Primary hypertension 02/04/2025 Results Follow-Up [facility] [address] [place] [address] Ryne Bergman MD 01/29/2025 1:32 PM EDT - 01/29/2025 11:59 PM EDT Hospital Encounter [facility] [address] [place] [address] Ryne Bergman MD Encounter for screening for lung cancer; Personal history of nicotine dependence Discharge Disposition: Home or Self Care 01/29/2025 Travel 01/25/2025 Telephone [facility] [address] [place] [address] Ryne Bergman MD FAX 01/18/[address] [facility] [address] [place] [address] Ryne Bergman MD Prior Authorization (Dexcom G7 Sensor ) 01/15/2025 11:15 AM EDT Office Visit [facility] [address] [place] [address] Ryne Bergman MD TIA (transient ischemic attack) (Primary Dx); Type 2 diabetes mellitus with hyperglycemia, with long-term current use of insulin; Primary hypertension; Chest pain, unspecified type; Encounter for screening for lung cancer; Personal history of nicotine dependence; Type 2 diabetes mellitus with hypoglycemia without coma, with long-term current use of insulin; Long-term insulin use 01/15/2025 Travel from Last 3 Months Immunizations Immunization Administration Dates Next Due COVID-19 (MODERNA) 1st,2nd,3 rd Dose Monovalent 03/07/2021,02/07/2021 Flu Vaccine Quad PF >36MO 08/23/2019,07/30/2018 Fluzone (or Fluarix & Flulav al for VFC) >6mos 08/24/2023,07/28/2022,08/23/2019,07/30 Hepatitis A 07/30/2018 Pneumococcal Conjugate 20-Va lent (PCV20) 11/23/2023 Pneumococcal Polysaccharide (PPSV23) 07/25/2018 Family History Medical History Relation Name Comments Alcohol abuse Father [place] [facility] Father Matthews Cash Lung & bone c ancer Alcohol abuse Mother [place] [facility] Mother Matthews Cash Lung & bone c ancer Relation Name Status Comments Father Matthews Cash Alive Mother Matthews Cash Alive Social History Tobacco Use Types Packs/Day Years [...] Orientation Straight 12/03/2024 7: 40 PM EDT Last Filed Vital Signs Vital Sign Reading [...] Mass Index 33.09 03/12/2025 2:19 PM EDT Plan of Treatment Upcoming Encounters Date Type Department Care Team (Late st Contact Info) Description 06/12/2025 3:00 PM EDT Office Visit [facility] [address] [place] [address] Ryne Bergman MD [address] [place] [address] 03/14/2026 2:15 PM EDT Office Visit [facility] [address] [place] [address] Ryne Bergman MD [address] [place] [address] Health Maintenance Due Date Last Done Comments DIABETIC EYE EXAM 1968 DIABETIC FOOT EXAM 1968 TDAP/TD VACCINES (1 - Tdap) 1977 COLOGUARD 2003 COLON CANCER SCREENING 5 YEA R SIGMOIDOSCOPY 2003 [address] COLONOGRAPHY 2003 FECAL OCCULT BLOOD TEST 2003 FIT Testing (1 year) 2003 ZOSTER VACCINE (1 of 2) 2008 HEPATITIS C SCREENING 01/07/2022 AAA SCREEN ONCE 2023 COVID-19 Vaccine (3 - 2023-2 5 season) 2024 03/07/2021, 02/07/2021 INFLUENZA VACCINE 06/27/2025 08/24/2023, , 08/23/2019, Additional history exists HEMOGLOBIN A1C 09/11/2025 03/12/2025, 03, 09/07/2024, Additional history exists URINE MICROALBUMIN-CREATININ E RATIO (uACR) 01/15/2026 01/15/2025 LUNG CANCER SCREENING 01/29/2026 01/29/2025 ANNUAL WELLNESS VISIT 03/12/2026 03/12/2025 , 03/12/2025, 11/23/2023, Additional history exists COLONOSCOPY 04/11/2029 04/11/2019 COLORECTAL CANCER SCREENING 04/11/2029 Pneumococcal Vaccine 50+ Completed 11/23/2023, 06/28 Procedures Procedure Name Priority Date/Time Associated Diagnosis Comments SCANNED - LABS 04/06/2025 SCANNED - LABS 04/04/2025 SCANNED - LABS 04/04/2025 SCANNED - LABS 03/20/2025 POCT GLYCOSYLATED HEMOGLOBIN (HGB A1C) Routine 03/12/2025 2:55 PM EDT Type 2 diabetes mellitus with hyperglycemia, with long-term current use of insulin SCANNED - IMAGING 03/12/2025 SCANNED - IMAGING 03/11/2025 CT CHEST LOW DOSE WO CANCER SCREENING Routine 01/29/2025 2:15 PM EDT Encounter for screening for lung cancer Personal history of nicotine dependence POC ALBUMIN/CREATININE RATIO Routine 01/15/2025 1:41 PM EDT Type 2 diabetes mellitus with hyperglycemia, with long-term current use of insulin Primary hypertension SCANNED - COLONOSCOPY 04/11/2019 from Last 3 Months or Most Recently Relevant to Health Maintenance Results * LABS SCANNED (04/06/2025) Only the most recent of4 resultswithin the time period is included. Ryne Bergman MD LAB BLOOD ORDERABLES Fin al Result * (ABNORMAL) POC Glycosylated Hemoglobin (Hb A1C) (03/12/2025 2:55 PM EDT) Hemoglobin A1C 8.3(A) 4.5 - 5.7 % [facility] Lot Number [id number] [facility] Expiration Date 11/13/2026 [facility] Blood 03/12/2025 2:55 PM EDT Ryne Bergman MD POINT OF CARE TEST ORDER MICHELL Final Result [facility]
[address] [place] [id number], [place] [phone] * IMAGING SCANNED (03/12/2025) Only the most recent of2 resultswithin the time period is included. Anatomical Region Laterality Modality Radiographic Mansi ging Ryne Bergman MD IMG DIAGNOSTIC IMAGING O RDERABLES Final Result * CT Chest Low Dose Cancer Screening WO (01/29/2025 2:15 PM EDT) Anatomical Region Laterality Modality Chest Computed Tomogra phy 02/02/2025 9:48 AM EDT Impressions 02/02/2025 10:03 AM EDT Impression: Scattered calcified and noncalcified small pulmonary nodules which may all represent old granulomatous disease. The largest noncalcified nodule is a smooth margined rounded pleural-based right middle lobe nodule, 6 mm in diameter. This meets minimal criteria for lung RADS category 3, solid nodule 6 mm or greater in diameter at baseline. 6-month low-dose CT scan follow-up is suggested. Recommendation: 6 month follow up with LDCT Lung Rads Assessment: Lung-RADS L3 - Probably benign, 1-2% chance of malignancy. Electronically Signed: El Silver MD 02/02/2025 10:03 AM EDT Workstation ID: [id number] Narrative 02/02/2025 10:[address] CHEST LOW DOSE CANCER SCREENING WO Date of Exam: 01/29/2025 2:06 PM EDT Indication: screen for lung cancer, personal history of nicotine dependence. Comparison: None available. Technique: Low dose CT imaging of the chest was performed without intravenous contrast enhancement. Automated exposure control and iterative reconstruction methods were used. Findings: RIGHT LUNG: There are small, smoothly rounded calcified and noncalcified pulmonary micronodules, and a few slightly larger calcified and noncalcified nodules, which may all represent incidental granulomas. The larger noncalcified nodules include 6 mm round pleural-based right middle lobe nodule image 161/3 and 4 mm pleural-based right lower lobe nodule image 11/02/1935/3. Remaining noncalcified nodules are smaller in size. No groundglass lesion or other significant right lung disease is appreciated. LEFT LUNG: A small amount of benign-appearing, linear, pleural-based is calcification seen in the left upper lobe. There is a round noncalcified 4 mm left upper lobe pulmonary nodule image 137/3. A few 1 to 2 mm micronodules are noted but no significant lung disease is appreciated. Images the mediastinum show scattered normal-sized calcified and noncalcified mediastinal and hilar nodes, but no evidence of pathologic adenopathy, other mass, or pericardial effusion. There is no pleural effusion. No coronary artery calcification is appreciated. Images of the upper abdomen show mild fatty liver change. No acute upper abdominal pathology is appreciated. Bony structures appear to be intact. Previous anterior cervical spine fusion is noted. . Procedure Note El Silver MD - 02/02/2025 CT CHEST LOW DOSE CANCER SCREENING WO Date of Exam: 01/29/2025 2:06 PM EDT Indication: screen for lung cancer, personal history of nicotinedependence. Comparison: None available. Technique: Low dose CT imaging of the chest was performed withoutintravenous contrast enhancement. Automated exposure control anditerative reconstruction methods were used. Findings: RIGHT LUNG: There are small, smoothly rounded calcified and noncalcifiedpulmonary micronodules, and a few slightly larger calcified andnoncalcified nodules, which may all represent incidental granulomas. Thelarger noncalcified nodules include 6 mm round pleural-based right middle lobe nodule image 161/3 and 4 mmpleural-based right lower lobe nodule image 11/02/1935/3. Remainingnoncalcified nodules are smaller in size. No groundglass lesion or othersignificant right lung disease is appreciated. LEFT LUNG: A small amount of benign-appearing, linear, pleural-based iscalcification seen in the left upper lobe. There is a round noncalcified 4mm left upper lobe pulmonary nodule image 137/3. A few 1 to 2 mmmicronodules are noted but no significant lung disease is appreciated. Images the mediastinum show scattered normal-sized calcified andnoncalcified mediastinal and hilar nodes, but no evidence of pathologicadenopathy, other mass, or pericardial effusion. There is no pleuraleffusion. No coronary artery calcification is appreciated. Images of the upper abdomen show mild fatty liver change. No acute upperabdominal pathology is appreciated. Bony structures appear to be intact.Previous anterior cervical spine fusion is noted. . IMPRESSION: Impression: Scattered calcified and noncalcified small pulmonary nodules which may allrepresent old granulomatous disease. The largest noncalcified nodule is asmooth margined rounded pleural-based right middle lobe nodule, 6 mm indiameter. This meets minimal criteria for lung RADS category 3, solid nodule 6 mm or greater indiameter at baseline. 6-month low-dose CT scan follow-up is suggested. Recommendation: 6 month follow up with LDCT Lung Rads Assessment: Lung-RADS L3 - Probably benign, 1-2% chance of malignancy. Electronically Signed: El Silver MD 02/02/2025 10:03 AM EDT Workstation ID: [id number] Ryne Bergman MD G CT ORDERABLES Final Result * POC Albumin/Creatinine Ratio Urine (01/15/2025 1:41 PM EDT) POC ALBUMIN, URINE 10 mg/L POC CREATININE, URINE 100 mg/dL POC Urine Albumin Creatinine Ratio < 30 mg/g <30 Comment:normal Lot Number [id number] Expiration Date Urine 01/15/2025 1:41 PM EDT Ryne Bergman MD POINT OF CARE TEST ORDER MICHELL Final Result * SCANNED - COLONOSCOPY (04/11/2019) Ryne Bergman MD CHART REVIEW TABS Fin al Result from Last 3 Months or Most Recently Relevant to Health Maintenance Insurance [facility] MEDICARE ADVANTAGE HMO Care Teams Patient Access Manager Relationship Specialty Start Date End Date Ryne Bergman MD [address] [place] [address] PCP - General Family Medicine 01/08/22
--- OUTSIDE RECORDS SUMMARY | 2025-04-13 15:47 | XMS_ITS | Encounter Summary ---
Author Organization [facility] yste Address [address] [place] [address] Care Team Providers Care Building Certifier Name Role Phone Ryne Bergman MD Primary Care Provider + Encounter Details Date Type Department Care Team (Late st Contact Info) Description 03/13/2025 Patient Outreach [facility] [address] [place] [address] Social History Tobacco Use Types Packs/Day Years [...] PM EDT documented as of this encounter Miscellaneous Notes * Outreach Note - Sandrita Kate RN - 03/13/2025 11:26 AM EDT Images from the original note were not included. AMBULATORY CASE MANAGEMENT NOTE Names and Relationships of Patient/Support Persons: Contact: Ramsey Castrejon; Relationship: Self - Patient Outreach RN-ACM outreach with patient regarding identified proactive HRCM review. Reviewed with patient roleof RN-ACM and HRCM case management services. Patient verbalized understanding. Patient states to have 03/10/25 [facility] ED visit regarding chest pain. Patient states to have been treated and discharged. Patient states to have had 03/12/25 PCP and 03/13/25 cardiology appointment and received recommendations. Patient states to be awaiting scheduling of stress test and diabetic education appointment. Note per [facility] referral for nutrition education at [facility]; discussed with patient and patient voiced intent to follow up for appointment. Patient states to be compliant with medications; medical appointments and monitoring of blood pressure and blood sugars. Patient states values WNL's and received A1C result of 8.3 which improved from previous A1C. Patient states no chest pain since ED visit; states to have had episodes of SOB when mowing grass and no difficulty with appetite or sleeping. Reviewed with patient education and verbalized understanding. Patientstates to appreciate outreach and requests additional outreach. Care plan initiated and ongoing. Nofurther questions voiced at this time. Adult Patient Profile Questions/Answers Flowsheet Row Most Recent Value Symptoms/Conditions Managed at Home diabetes, type 2, cardiovascular Cardiovascular Symptoms/Conditions hypertension Cardiovascular Management Strategies medication therapy, other (see comments) [Physician follow up] Diabetes Management Strategies medication therapy, other (see comments), blood glucose testing [Physician follow up] Barriers to Taking Medication as Prescribed none Equipment Currently Used at Home bp cuff, glucometer Primary Source of Support/Comfort spouse People in Home spouse Social Work Assessment Questions/Answers Flowsheet Row Most Recent Value People in Home spouse Functional Status Comments Patient states to independent with ADL's, transportation and ambulation Equipment Currently Used at Home bp cuff, glucometer Send Education Questions/Answers Flowsheet Row Most Recent Value Annual Wellness Visit: Patient Has Completed Other Patient Education/Resources 19/04 [facility] Nurse Call Line, [facility] 19/04 Nurse Call Line Education Method Verbal SDOH updated and reviewed with the patient during this program: -- Food Insecurity: No Food Insecurity (03/13/2025) Hunger Vital Sign Worried About Running Out of Food in the Last Year: Never true Ran Out of Food in the Last Year: Never true -- Transportation Needs: No Transportation Needs (03/13/2025) PRAPARE - Transportation Lack of Transportation (Medical): No Lack of Transportation (Non-Medical): No Education Documentation Follow-Up Care, taught by Sandrita Kate RN at 03/13/2025 1:02 PM. Learner: Patient Readiness: Acceptance Method: Explanation Response: Verbalizes Understanding Continuous Glucose Monitoring (CGM), taught by Sandrita Kate, RN at 03/13/2025 1:02 PM. Learner: Patient Readiness: Acceptance Method: Explanation Response: Verbalizes Understanding Sandrita Neumann Ambulatory Case Management 03/13/2025, 13:02 EDT documented in this encounter Plan of Treatment Upcoming Encounters Date Type Department Care Team (Late st Contact Info) Description 06/12/2025 3:00 PM EDT Office Visit [facility] [address] [place] [address] Ryne Bergman MD [address] [place] [address] 03/14/2026 2:15 PM EDT Office Visit [facility] [address] [place] [address] Ryne Bergman MD [address] [place] [address] documented as of this encounter Visit Diagnoses Not on filedocumented in this encounter Additional Health Concerns Assessment Noted Time PHQ-2 Depression Total Score: 2 11/23/19 24 10:16 AM EST documented as of this encounter Care Teams Building Certifier Relationship Specialty Start Date End Date Ryne Bergman MD [address] [place] [address] PCP - General Family Medicine 01/08/22 documented as of this encounter
--- OUTSIDE RECORDS SUMMARY | 2025-04-13 15:47 | XMS_ITS | Encounter Summary ---
Author Organization [facility] Address [address] [place] [address] Care Team Providers Care Vacuum Cleaner Operator Name Role Phone Ryne Bergman MD Primary Care Provider [phone] Abiola Loyola APRN Unavailable [phone] Aarti Maldonado MD Unavailable [phone] Encounter Details Date Type Department Care Team [...] Encounter PAV A OPERATING ROOM [address] [place] [address] Aarti Maldonado MD [address] [facility] [address] [place] [address] 04/27/2025 7:30 AM EDT - 04/27/2025 9:45 AM EDT Surgery PAV A OPERATING ROOM 800 [place] [address] Aarti Maldonado MD [address] [place] [address] [phone] ENUCLEATION, PROSTATE, TRANSURETHRAL, USING HOLMIUM LASER [48612 (CPT )] Scheduled Procedures Name Priority Associated [...] documented as of this encounter Care Teams Vacuum Cleaner Operator Relationship Specialty Start Date End Date Ryne Bergman MD [address] [place] [address] PCP - General 04/21/24 Abiola Loyola APRN [address] [address] Nurse Practitioner Urology 10/30/24 Aarti Maldonado MD [address] [address] Surgeon Urology 01/10/25 documented as of this encounter
--- OUTSIDE RECORDS SUMMARY | 2025-04-13 15:47 | XMS_ITS | Clinical Summary ---
Author Organization [facility] Address [address] [place] [address] Care Team Providers Care Geophysical Party Chief Name Role Phone Ryne Bergman MD Primary Care Provider [phone] Abiola Loyola APRN Unavailable Aarti Maldonado MD Unavailable [phone] Allergies Active Allergy Reactions Criticality Noted Date [...] Type Department Care Team Description 04/02/2025 Telephone [facility] Urology [address] [facility] 2nd [place] [address] Aarti Maldonado MD 03/23/2025 Telephone [facility] Urology [address] [address] Aarti Maldonado MD 03/14/2025 2:45 PM EDT Pre-Admission Testing [facility] Pre-op [facility] [address] [address] Preop examination (Primary Dx) 03/14/2025 Telephone [facility] Urology [address] [address] Aarti Maldonado MD 03/14/2025 Travel 03/12/2025 8:03 AM EDT - 03/12/2025 11:59 PM EDT Hospital Encounter [facility] A Radiology [address] [place] [address] Benign prostatic hyperplasia with urinary frequency Discharge Disposition: Home or Self Care 03/12/2025 7:40 AM EDT - 03/12/2025 8:02 AM EDT Hospital Encounter [facility] A Radiology [address] [place] [address] Benign prostatic hyperplasia with urinary frequency Discharge Disposition: Home or Self Care 03/12/2025 Results Follow-Up Medical Office Building Urology [address] [facility], [address] [place] [address] Aarti Maldonado MD 03/12/2025 Telephone [facility] Urology [address], [facility] [place] [address] Aarti Maldonado MD 03/09/25 Final Urine culture results 03/12/2025 Travel 03/09/2025 Orders Only [facility] Urology [address], [facility] [place] [address] Aarti Maldonado MD 03/09/2025 Telephone [facility] Urology [address], [address] [place] [address] Aarti Maldonado MD HCN Clinical Concern/Question 03/08/2025 Orders Only [facility] Urology [facility] [address], [address] [place] [address] Aarti Maldonado MD Microhematuria (Primary Dx) 03/08/2025 Telephone [place] [address] [address] Aarti Maldonado MD 03/05/25 Urine culture results from [facility] 02/13/2025 Telephone [facility] Urology [address], [address] [place] [address] Aarti Maldonado MD 02/13/2025 Telephone [facility] [address] [address] Aarti Maldonado MD 01/15/2025 Telephone [facility] Urology [facility] S [address] [place] [address] Aarti Maldonado MD 01/12/2025 Telephone [facility] [address] [address] Aarti Maldonado MD from Last 3 Months Immunizations Immunization Administration Dates Next Due Hep A, Adult 07/30/2018 Influenza, injectable, quadr ivalent, preservative free 08/24/2023,07/28/2022,08/23/2019,07/30 Pneumococcal 20-edinson Conj Vaccine 11/23/2023 Pneumococcal Polysaccharide PPV23 07/25/2018 Family History Medical History Relation Name Comments Cancer Father Irvine Cash Hypertension Mother Tawnya Castrejon Kidney disease Mother Tawnya Castrejon Anesthesia problems Neg Hx Malig Hyperthermia Neg Hx Relation Name Status Comments Father Irvine Cash Mother Tawnya Castrejon Social History Tobacco [...] Hospital Encounter PAV A OPERATING ROOM [address] [place] [address] Aarti Maldonado MD [address] [place] [address] 04/27/2025 7:30 AM EDT - 04/27/2025 9:45 AM EDT Surgery PAV A OPERATING ROOM [address] [place] [address] Aarti Maldonado MD [address] [place] [address] ENUCLEATION, PROSTATE, TRANSURETHRAL, USING HOLMIUM LASER [87972 (CPT )] Scheduled Procedures Name Priority Associated [...] 2023 [facility]-Diabetes: Hemoglobin A1C 05/22/2024 11/23/2023, 07/28/2022 HNS-RSTLF-60 Vaccine ( season) 2024 03/07/2021, 02/07/2021 [facility]-Influenza [...] EDT Benign prostatic hyperplasia with urinary frequency from Last 3 Months Results * MR [...] and 800 s/mm2 used to generate calculated z=9054 s/mm2 and ADC map; and an acquired high b =1400 s/mm2; axial 3D dynamic contrast-enhanced [id number] imaging with <10 sec temporal resolution were [...] Other pelvic organs: Unremarkable. Procedure Note Jaye Andres DO - 03/12/2025 CLINICAL INDICATION: 64 year [...] 48 and 800 s/mm2 used to generatecalculated z=7176 s/mm2 and ADC map; and an acquired high b =1400 s/mm2;axial 3D dynamic contrast-enhanced [id number] imaging with <10 sectemporal resolution were acquired [...] Fuller MD IMG XR PROCEDURES Final Result from Last 3 Months Insurance [facility] MEDICARE Care Teams Geophysical Party Chief Relationship Specialty Start Date End Date Ryne Bergman MD [address] [place] [address] PCP - General 04/21/24 Abiola Loyola APRN [address] [place] [address] Nurse Practitioner Urology 10/30/24 Aarti Maldonado MD [address] [place] [address] Surgeon Urology 01/10/25
[2025-04-17 14:12] LABS: Albumin, U 29.2 % (.); Alpha-1-Globulin, U 12.8 % (.); Alpha-2-Globulin, U 18.1 % (.); Beta Globulin, U 27.2 % (.); Gamma Globulin, U 12.6 % (.)
== END 2025-04-13 23:59 | disposition home or self-care (01) ==
LOC: LAB 15:44
PROVIDERS: Physician Assistant; PCP Family Medicine; Visit Provider Urology
DX: I25.10 Atherosclerotic heart disease of native coronary artery without angina pectoris (principal); E78.49 Other hyperlipidemia; R06.09 Other forms of dyspnea; I10 Essential (primary) hypertension; E11.9 Type 2 diabetes mellitus without complications; R93.1 Abnormal findings on diagnostic imaging of heart and coronary circulation; Z79.4 Long term (current) use of insulin
CPT/HCPCS: 84156; 84166

== ENCOUNTER 2025-04-17 11:35 | Outpatient (CLI) | payer MEDICARE, SELFPAY ==
--- OUTSIDE RECORDS SUMMARY | 2025-03-12 07:40 | XMS_ITS | Encounter Summary ---
Author Organization Healthcare Address [address] [id number] Care Team Providers Care Mobile Lounge Driver Name Role Phone Ryne Bergman MD Primary Care Provider [phone] Abiola Loyola APRN Unavailable [phone] Aarti Maldonado MD Unavailable Reason for Referral * Imaging (Routine) - Closed Specialty Diagnoses / Procedures Referred By Kriss colin Referred To Contact Radiology Diagnoses Benign prostatic hyperplasia with urinary frequency Procedures MR Prostate w and wo IV Contrast Aarti Maldonado MD [address] [address] Phone: tel: fax: Referral ID Status Reason Start Date Expiration Date Visits Re quested Visits Authorized [id number] Closed 01/10/2025 07/12/2026 1 1 Reason for Visit * Imaging (Routine) - Closed Specialty Diagnoses / Procedures Referred By Kriss colin Referred To Contact Radiology Diagnoses Benign prostatic hyperplasia with urinary frequency Procedures MR Prostate w and wo IV Contrast Aarti Maldonado MD [address] [address] Phone: tel: fax: Referral ID Status Reason Start Date Expiration Date Visits Re quested Visits Authorized [id number] Closed 01/10/2025 07/12/2026 1 1 Encounter Details Date Type Department Care Team (Latest Contact Info) Description 03/12/2025 7:40 AM EDT - 03/12/2025 8:02 AM EDT Hospital Encounter [facility] [address] [place] [address] Benign prostatic hyperplasia with urinary frequency Discharge [...] Hospital Encounter [facility] [address] [place] [address] Aarti Maldonado MD [address] [address] 04/27/2025 7:30 AM EDT - 04/27/2025 9:45 AM EDT Surgery [facility] [address] [place] [address] Aarti Maldonado MD [address] [address] ENUCLEATION, PROSTATE, TRANSURETHRAL, USING HOLMIUM LASER [[id number] (CPT )] Scheduled Procedures Name Priority Associated [...] and 800 s/mm2 used to generate calculated u=1880 s/mm2 and ADC map; and an acquired high b =1400 s/mm2; axial 3D dynamic contrast-enhanced G4wxvppara imaging with <10 sec temporal resolution were [...] 50 and 800 s/mm2 used to generatecalculated b=8132 s/mm2 and ADC map; and an acquired high b =1400 s/mm2;axial 3D dynamic contrast-enhanced U2rnpdboyl imaging with <10 sectemporal resolution were acquired [...] documented as of this encounter Care Teams Mobile Lounge Driver Relationship Specialty Start Date End Date Ryne Bergman MD [address] [place] [address] PCP - General 04/21/24 Abiola Loyola APRN [address] [place] [address] Nurse Practitioner Urology 10/30/24 Aarti Maldonado MD [address] [place] [address] Surgeon Urology 01/10/25 documented as of this encounter
--- OUTSIDE RECORDS SUMMARY | 2025-03-12 08:03 | XMS_ITS | Encounter Summary ---
Author Organization [facility] Address [address] [place] [address] Care Team Providers Care Cone Baker Machine Name Role Phone Ryne Bergman MD Primary Care Provider [phone] Abiola Loyola APRN Unavailable [phone] Aarti Maldonado MD Unavailable [phone] Encounter Details Date Type Department Care Team (Latest Contact Info) Description 03/12/2025 8:03 AM EDT - 03/12/2025 11:59 PM EDT Hospital Encounter [facility] Radiology [address] [place] [address] Benign prostatic hyperplasia with urinary frequency Discharge [...] Hospital Encounter [facility] A OPERATING ROOM [address] [place] [address] Aarti Maldonado MD [address] [address] 04/27/2025 7:30 AM EDT - 04/27/2025 9:45 AM EDT Surgery [facility] A OPERATING ROOM [address] [place] [address] Aarti Maldonado MD [address] [address] ENUCLEATION, PROSTATE, TRANSURETHRAL, USING HOLMIUM LASER [[id number] (CPT )] Scheduled Procedures Name Priority Associated [...] documented as of this encounter Care Teams Cone Baker Machine Relationship Specialty Start Date End Date Ryne Bergman MD [address] [place] [address] PCP - General 04/21/24 Abiola Loyola APRN [address] [facility] [address] [place] [address] Nurse Practitioner Urology 10/30/24 Aarti Maldonado MD [address] [place] [address] Surgeon Urology 01/10/25 documented as of this encounter
--- OUTSIDE RECORDS SUMMARY | 2025-03-12 14:15 | XMS_ITS | Encounter Summary ---
Author Organization [facility] yste Address [address] [place] [address] Care Team Providers Care Bearing Machine Operator Name Role Phone Ryne Bergman MD Primary Care Provider + Reason for Referral * Health Education (Routine) - Authorized Specialty Diagnoses / Procedures Referred By Contchristopher t Referred To Contact Dietitian Diagnoses Type 2 diabetes mellitus with hyperglycemia, with long-term current use of insulin Procedures ME OFFICE/OUTPATIENT NEW MODERATE MDM 45 MINUTES Ryne Bergman MD [address] [facility] [place] [address] Phone: tel: fax: [facility] - OUTPT [facility]ER[facility] [address] [place] [address] Phone: tel: fax: Referral ID Status Reason Start Date Expiration Date Visits Requested Visits Authorized [id number] Authorized Specialty Services Required 03/12/2025 06/11/2026 1 1 Scheduling Instructions Refer to Automotive Services Manager at [facility] Reason for Visit * Reason Comments Medicare Wellness-subsequent Pt not sure of all his BP medications Encounter Details Date Type Department Care Team (Late st Contact Info) Description 03/12/2025 2:15 PM EDT Office Visit [facility] [address] [place] [id number] [place] [address] Medicare annual wellness visit, subsequent [...] given forms for patient assistance program from [employer] for Ozempic. Patient will complete and return tot office for faxing along with prescription for Ozempic. Continue to utilize CGM Orders: POC Glycosylated Hemoglobin (Hb A1C) Ambulatory Referral to Nutrition Services * Ryne Bergman MD - 03/12/2025 2:15 PM EDT Images from the original note were not included. Subjective The ABCs of the Annual Wellness Visit Medicare Wellness Visit Ramsey Castreojn is a 64 y.o. patient who presents [...] admitted within the past 365 days at [facility]. Current Medical Providers: Patient Care Team: Ryne Bergman MD as PCP - General (Family Medicine) Sandrita Kate RN as Ambulatory Oil Fire Specialist (Population Health) Outpatient Medications Prior to Visit [...] tablet Take 1 tablet by mouth Daily. [employer] Verio test strip USE 1 STRIP TO [...] mouth Daily. 90 tablet 3 Continuous Glucose Stitching Machine Operator (IDRI ([employer])com G7 Stitching Machine Operator) device Use 1 each Daily. 1 each [...] CANCER SCREENING 04/11/2029 Pneumococcal Vaccine 50+ Completed [facility] Preventative Services Quick Reference Risk Factors Identified [...] forms for patient assistance program from [employer] for Ozempic. [facility] faxing along with prescription [...] Description 06/12/2025 3:00 PM EDT Office Visit [facility] [address] [address] Ryne Bergman MD [address], [place] [address] 03/14/2026 2:15 PM EDT Office Visit [facility] [address] [address] Ryne Bergman [...] Hemoglobin A1C 8.3(A) 4.5 - 5.7 % [facility] Lot Number [id number] [facility] Expiration Date 11/13/2026 [facility] Blood 03/12/2025 2:55 PM EDT us Ryne Bergman MD POINT OF CARE TEST ORDER MICHELL Final Result [facility]
[address] [place] [id number], documented in this encounter Visit Diagnoses Diagnosis [...] documented as of this encounter Care Teams Bearing Machine Operator Relationship Specialty Start Date End Date Ryne Bergman MD [address] [place] [address] PCP - General Family Medicine 01/08/22 documented as of this encounter
--- OUTSIDE RECORDS SUMMARY | 2025-03-14 14:45 | XMS_ITS | Encounter Summary ---
Author Organization Healthcare Address [address] [place] [address] Care Team Providers Care Gymnastics Coach Or Instructor Name Role Phone Ryne Bergman MD Primary Care Provider [phone] Abiola Loyola APRN Unavailable [phone] Aarti Maldonado MD Unavailable [phone] Encounter Details Date Type Department Care Team (Latest Contact Info) Description 03/14/2025 2:45 PM EDT [facility] Testing [place] [facility] [address], [address] [place] [address] Preop examination (Primary Dx) Social History Tobacco [...] with Aarti Maldonado MD on 03/19/2025 in [facility] [place] Past Medical History[1] Family History[2] Social History[3] [...] CAD, CHF, dysrhythmias, hyperlipidemia, murmur, pacemaker, past [place] or syncope. hypertension (patient reports cardiology is [...] 03-05-25 03/11/25- provided by patient from his [facility] portal Na 137 K 4.2 Bun [...] into the left ventricle possibly representing septal vacuum cooker operator branch flow. No significant valvular stenosis or regurgitation In the setting of increased LV wall thickenss with proximal septal thickening of IVSd 1.4 cm, further evaluation with cardiac MRI ( H protocol is suggested. Also, in the setting of suspected septal vacuum cooker operator branch flow, futher evaluation with coronary angiography [...] until he gets cardiac clearance. Rl Lancaster, MOLDER TRIMMER [1] Past Medical History: Diagnosis Date Benign prostatic hyperplasia Diabetes mellitus (CMS/HCC) Hypertension Urinary tract infection 2023 [2] Family History Problem Relation Name Age of Onset Hypertension Mother Tawnya Castrejon Kidney disease Mother Tawnya Castrejon Cancer Father Tilden Cash Anesthesia problems Neg Hx Malig Hyperthermia [...] card, photo ID, along with power of powder mixer, guardianship or advanced directives if applicable Do [...] Hospital Encounter [facility] [address] [place] [address] Aarti Maldonado MD [id number] [place] [address] 04/27/2025 7:30 AM EDT - 04/27/2025 9:45 AM EDT Surgery [address] [place] [address] Aarti Maldonado MD [address] [place] [address] ENUCLEATION, PROSTATE, TRANSURETHRAL, USING HOLMIUM LASER [93232 (CPT )] Scheduled Procedures Name Priority Associated Diagnoses Date/Ti nh ENUCLEATION, PROSTATE, TRANSURETHRAL, USING HOLMIUM LASER BPH [...] documented as of this encounter Care Teams Gymnastics Coach Or Instructor Relationship Specialty Start Date End Date Ryne Bergman MD [address] [place] [address] PCP - General 04/21/24 Abiola Loyola APRN [address] [place] [address] Nurse Practitioner Urology 10/30/24 Aarti Maldonado MD [address] [place] [address] Surgeon Urology 01/10/25 documented as of this encounter
--- OUTSIDE RECORDS SUMMARY | 2025-04-17 11:38 | XMS_ITS | Encounter Summary ---
Author Organization [facility] Address [address] [place] [address] Care Team Providers Care Court Crier Name Role Phone Ryne Bergman MD Primary Care Provider [phone] Abiola Loyola PHONE SPECIALIST Unavailable [phone] Aarti Maldonado MD Unavailable [phone] Encounter Details Date Type Department Care Team (Late st Contact Info) Description 02/10/2024 Orders Only External Location 800 [place] [address] Nicole Bernstein, DO [address] [place] [address] Social History Tobacco Use Types [...] Hospital Encounter PAV A OPERATING ROOM [address] [place] [address] Aarti Maldonado MD [address] [facility] [address] [place] [address] 04/27/2025 7:30 AM EDT - 04/27/2025 9:45 AM EDT Surgery PAV A OPERATING ROOM [address] [place] [address] Aarti Maldonado MD [address] [place] [address] ENUCLEATION, PROSTATE, TRANSURETHRAL, USING HOLMIUM LASER [06392 (CPT )] Scheduled Procedures Name Priority Associated [...] on filedocumented in this encounter Care Teams Court Crier Relationship Specialty Start Date End Date Ryne Bergman MD [address] [place], [place] [phone] PCP - General 04/21/24 Abiola Loyola APRN [address] [place] [address] Nurse Practitioner Urology 10/30/24 Aarti Maldonado MD [address] [place] [address] Surgeon Urology 01/10/25 documented as of this encounter
--- OUTSIDE RECORDS SUMMARY | 2025-04-17 11:38 | XMS_ITS | Encounter Summary ---
Author Organization [facility] Address [address] [place] [address] Care Team Providers Care Glue Maker Bone Name Role Phone Ryne Bergman MD Primary Care Provider [phone] Abiola Loyola VICE PRESIDENT OF INSTRUCTION Unavailable Aarti Maldonado MD Unavailable [phone] Reason for Visit * Reason Onset Date Comments 03/05/25 Urine culture results from [facility] 03/08/2025 Encounter Details Date Type Department Care Team (Late st Contact Info) Description 03/08/[address] [facility] Urology [address], 2nd [place] [address] Aarti Maldonado MD [address] [place] [address] 03/05/25 Urine culture results from [facility] Social History Tobacco Use Types Packs/Day Years [...] AM EDT 03/05/25 Urine culture results from [facility] and have been uploaded to media. Thank you. documented in this encounter Plan of Treatment Upcoming Encounters Date Type Department Care Team (Latest Contact Info) Description 04/27/2025 7:30 AM EDT Hospital Encounter PAV A OPERATING ROOM [address] [place] [address] Aarti Maldonado MD [address] [address] 04/27/2025 7:30 AM EDT - 04/27/2025 9:45 AM EDT Surgery PAV A OPERATING ROOM [address] [place] [address] Aarti Maldonado MD [address] [address] ENUCLEATION, PROSTATE, TRANSURETHRAL, USING HOLMIUM LASER [[id number] (CPT )] Scheduled Procedures Name Priority Associated [...] documented as of this encounter Care Teams Glue Maker Bone Relationship Specialty Start Date End Date Ryne Bergman MD 210 [place] [address] PCP - General 04/21/24 Abiola Loyola APRN [address] [facility]00 [place] [address] Nurse Practitioner Urology 10/30/24 Aarti Maldonado MD [address] [place] [address] Surgeon Urology 01/10/25 documented as of this encounter
--- OUTSIDE RECORDS SUMMARY | 2025-04-17 11:38 | XMS_ITS | Encounter Summary ---
Author Organization [facility] Address [address] [place] [address] Care Team Providers Care Edge Plugger Name Role Phone Ryne Bergman MD Primary Care Provider [phone] Abiola Loyola DRILLING FIELD OPERATOR Unavailable [phone] Aarti Maldonado MD Unavailable [phone] Encounter Details Date Type Department Care Team (Late st Contact Info) Description 03/09/2025 Orders Only [facility] [address], 2nd [place] [address] Aarti Maldonado MD [address] [place] [address] Social History Tobacco Use Types [...] Encounter PAV A OPERATING ROOM [address] [place] [address] Aarti Maldonado MD [address] [address] 04/27/2025 7:30 AM EDT - 04/27/2025 9:45 AM EDT Surgery PAV A OPERATING ROOM [address] [place] [address] Aarti Maldonado MD [address] [address] ENUCLEATION, PROSTATE, TRANSURETHRAL, USING HOLMIUM LASER [[id number] (CPT )] Scheduled Procedures Name Priority Associated [...] documented as of this encounter Care Teams Edge Plugger Relationship Specialty Start Date End Date Ryne Bergman MD [address] [place] [address] PCP - General 04/21/24 Abiola Loyola APRN [address] [place] [address] Nurse Practitioner Urology 10/30/24 Aarti Maldonado MD [address] [place] [address] Surgeon Urology 01/10/25 documented as of this encounter
--- OUTSIDE RECORDS SUMMARY | 2025-04-17 11:38 | XMS_ITS | Encounter Summary ---
[facility] Organization [facility] Address [address] [place] [address] Care Team Providers Care Tool Room Supervisor Name Role Phone Ryne Bergman MD Primary Care Provider + Reason for Visit * Reason Comments Med Refill Encounter Details Date Type Department Care Team (Late st Contact Info) Description 03/24/2025 Refill [facility] [address] [place] [address] Ryne Bergman MD [address] [place] [address] Type 2 diabetes mellitus with [...] Description 06/12/2025 3:00 PM EDT Office Visit [facility] [address] [place] [address] Ryne Bergman MD [address] [place] [address] 03/14/2026 2:15 PM EDT Office Visit [facility] [address] [place] [address] Ryne Bergman MD [address] [place] [address] documented as of this encounter Visit Diagnoses Diagnosis Type 2 diabetes mellitus with hyperglycemia, with long-term current use of insulin documented in this encounter Additional Health Concerns Assessment Noted Time PHQ-2 Depression Total Score: 2 11/23/19 24 10:16 AM EST documented as of this encounter Care Teams Tool Room Supervisor Relationship Specialty Start Date End Date Ryne Bergman MD [address] [place] [address] PCP - General Family Medicine 01/08/22 documented as of this encounter
--- OUTSIDE RECORDS SUMMARY | 2025-04-17 11:38 | XMS_ITS | Encounter Summary ---
Author Organization [facility] Address [address] [place] [address] Care Team Providers Care Chef Teacher Name Role Phone Ryne Bergman MD Primary Care Provider + Encounter Details Date Type Department Care Team (Late st Contact Info) Description 04/10/2025 Patient Outreach [facility] CASE MANAGEMENT [facility], MARZENA [address] [place] [address] Social History Tobacco Use Types Packs/Day Years [...] improved diet. Patient states to have had men's garment fitter referral and received helpful information regarding diet. [...] Description 06/12/2025 3:00 PM EDT Office Visit [facility] [address] [place] [address] Ryne Bergman MD [address] [place] [address] 03/14/2026 2:15 PM EDT Office Visit [facility] [address] [place] [place] [phone] Ryne Bergman MD [address] [place] [address] documented as of this encounter Visit Diagnoses Not on filedocumented in this encounter Additional Health Concerns Assessment Noted Time PHQ-2 Depression Total Score: 2 11/23/19 24 10:16 AM EST documented as of this encounter Care Teams Chef Teacher Relationship Specialty Start Date End Date Pacheco, Ryne Javy, MD [address] [facility] [place] [address] PCP - General Family Medicine 01/08/22 documented as of this encounter
--- OUTSIDE RECORDS SUMMARY | 2025-04-17 11:38 | XMS_ITS | Encounter Summary ---
Author Organization [facility] Address [address] [place] [address] Care Team Providers Care Sleep Manager Name Role Phone Ryne Bergman MD Primary Care Provider [phone] Abiola Loyola FINANCIAL SYSTEMS ANALYST Unavailable [phone] Aarti Maldonado MD Unavailable [phone] Reason for Visit * Reason Onset Date Comments HCN Clinical Concern/Question 03/09/2025 Encounter Details Date Type Department Care Team (Late st Contact Info) Description 03/09/2025 Telephone [facility] [address], 2nd [place] [address] Aarti Maldonado MD [address] [place] [address] HCN Clinical Concern/Question Social History [...] optimal time of day to reach caller: [phone] Note: Please do not reply to this message. Follow-up communication and further actions as a result of this message need to be communicated with the patient directly, if the patient is not active onMyChart. If the patient is active on MyChart, they will receive notification of the communication/outcome via FeZo. documented in this encounter Plan of Treatment Upcoming Encounters Date Type Department Care Team (Latest Contact Info) Description 04/27/2025 7:30 AM EDT Hospital Encounter PAV A OPERATING ROOM [address] [place] [address] Aarti Maldonado MD [address] [address] 04/27/2025 7:30 AM EDT - 04/27/2025 9:45 AM EDT Surgery PAV A OPERATING ROOM [address] [place] [address] Aarti Maldonado MD [address] [address] ENUCLEATION, PROSTATE, TRANSURETHRAL, USING HOLMIUM LASER [[id number] (CPT )] Scheduled Procedures Name Priority Associated [...] documented as of this encounter Care Teams Sleep Manager Relationship Specialty Start Date End Date yRne Bergman MD [address] [place] [address] PCP - General 04/21/24 Abiola Loyola APRN [address] [address] Nurse Practitioner Urology 10/30/24 Aarti Maldonado MD [address] [address] Surgeon Urology 01/10/25 documented as of this encounter
--- OUTSIDE RECORDS SUMMARY | 2025-04-17 11:38 | XMS_ITS | Encounter Summary ---
Author Organization [facility] Address [address] [place] [address] Care Team Providers Care Box Office Manager Name Role Phone Ryne Bergman MD Primary Care Provider [phone] Abiola Loyola MOTORCYCLE ASSEMBLER Unavailable [phone] Aarti Maldonado MD Unavailable [phone] Encounter Details Date Type Department Care Team (Late st Contact Info) Description 03/08/2025 Orders Only [facility] [address], 2nd [place] [address] Aarti Maldonado MD [address] [place] [address] Microhematuria (Primary Dx) Social History [...] Hospital Encounter PAV A OPERATING ROOM [address] [place] [address] Aarti Maldonado MD [address] [address] 04/27/2025 7:30 AM EDT - 04/27/2025 9:45 AM EDT Surgery PAV A OPERATING ROOM [address] [place] [address] Aarti Maldonado MD [address] [address] ENUCLEATION, PROSTATE, TRANSURETHRAL, USING HOLMIUM LASER [[id number] (CPT )] Scheduled Procedures Name Priority Associated [...] documented as of this encounter Care Teams Box Office Manager Relationship Specialty Start Date End Date Ryne Bergman MD [address] [place] [address] PCP - General 04/21/24 Abiola Loyola APRN [address] [address] Nurse Practitioner Urology 10/30/24 Aarti Maldonado MD [address] [place] [address] Surgeon Urology 01/10/25 documented as of this encounter
--- OUTSIDE RECORDS SUMMARY | 2025-04-17 11:38 | XMS_ITS | Encounter Summary ---
Author Organization [facility] Address [address] [place] [address] Care Team Providers Care Narcotics Detective Name Role Phone Ryne Bergman MD Primary Care Provider [phone] Abiola Loyola APRN Unavailable [phone] Aarti Maldonado MD Unavailable [phone] Encounter Details Date Type Department Care Team (Late st Contact Info) Description 10/30/2019 Orders Only External Location [address] [place] [address] Provider, External Social History Tobacco Use Types [...] Hospital Encounter PAV A OPERATING ROOM [address] [place] [address] Aarti Maldonado MD [address] [address] 04/27/2025 7:30 AM EDT - 04/27/2025 9:45 AM EDT Surgery PAV A OPERATING ROOM [address] [place] [address] Aarti Maldonado MD [address] [address] ENUCLEATION, PROSTATE, TRANSURETHRAL, USING HOLMIUM LASER [40390 (CPT )] Scheduled Procedures Name Priority Associated [...] on filedocumented in this encounter Care Teams Narcotics Detective Relationship Specialty Start Date End Date Ryne Bergman MD [address] [place] [address] PCP - General 04/21/24 Abiola Loyola APRN [address] [place] [address] Nurse Practitioner Urology 10/30/24 Aarti Maldonado MD [address] [place] [address] Surgeon Urology 01/10/25 documented as of this encounter
--- OUTSIDE RECORDS SUMMARY | 2025-04-17 11:39 | XMS_ITS | Encounter Summary ---
Author Organization [facility] Address [address] [place] [address] Care Team Providers Care Straightener Gun Parts Name Role Phone Ryne Bergman MD Primary Care Provider [phone] Abiola Loyola APRN Unavailable [phone] Aarti Maldonado MD Unavailable [phone] Encounter Details Date Type Department Care Team [...] Encounter PAV A OPERATING ROOM [address] [place] [address] Aarti Maldonado MD [address] [facility] [address] [place] [address] 04/27/2025 7:30 AM EDT - 04/27/2025 9:45 AM EDT Surgery PAV A OPERATING ROOM [address] [place] [address] Aarti Maldonado MD [address] [place] [address] ENUCLEATION, PROSTATE, TRANSURETHRAL, USING HOLMIUM LASER [39943 (CPT )] Scheduled Procedures Name Priority Associated [...] documented as of this encounter Care Teams Straightener Gun Parts Relationship Specialty Start Date End Date Ryne Bergman MD [address] [place] [address] PCP - General 04/21/24 Abiola Loyola APRN [address] [place] [address] Nurse Practitioner Urology 10/30/24 Aarti Maldonado MD [address] [place] [address] Surgeon Urology 01/10/25 documented as of this encounter
--- OUTSIDE RECORDS SUMMARY | 2025-04-17 11:40 | XMS_ITS | Encounter Summary ---
Author Organization [facility] Address [address] [place] [address] Care Team Providers Care Icu Rn Name Role Phone Ryne Bergman MD Primary Care Provider [phone] Abiola Loyola APRN Unavailable [phone] Aarti Maldonado MD Unavailable [phone] Encounter Details Date Type Department Care Team [...] Encounter PAV A OPERATING ROOM [address] [place] [address] Aarti Maldonado MD [address] [facility] [address] [place] [address] 04/27/2025 7:30 AM EDT - 04/27/2025 9:45 AM EDT Surgery PAV A OPERATING ROOM [address] [place] [address] Aarti Maldonado MD [address] [address] ENUCLEATION, PROSTATE, TRANSURETHRAL, USING HOLMIUM LASER [09111 (CPT )] Scheduled Procedures Name Priority Associated [...] documented as of this encounter Care Teams Icu Rn Relationship Specialty Start Date End Date Ryne Bergman MD [address] [place] [address] PCP - General 04/21/24 Abiola Loyola APRN [address] [address] Nurse Practitioner Urology 10/30/24 Aarti Maldonado MD [address] [address] Surgeon Urology 01/10/25 documented as of this encounter
--- OUTSIDE RECORDS SUMMARY | 2025-04-17 11:40 | XMS_ITS | Encounter Summary ---
Author Organization [facility] Address [address] [place] [address] Care Team Providers Care Undercoater Name Role Phone Ryne Bergman MD Primary Care Provider [phone] Abiola Loyola RADIOLOGICAL DEFENSE OFFICER Unavailable [phone] Aarti Maldonado MD Unavailable [phone] Encounter Details Date Type Department Care Team ([facility] Contact Info) Description 03/12/2025 Results Follow-Up Medical Office Building Urology [facility] [address] [facility], [address] [place] [address] Aarti Maldonado MD [address] [place] [address] Social History Tobacco Use Types [...] Hospital Encounter PAV A OPERATING ROOM [address] [place] [address] Aarti Maldonado MD [address] [address] 04/27/2025 7:30 AM EDT - 04/27/2025 9:45 AM EDT Surgery PAV A OPERATING ROOM [address] [place] [address] Aarti Maldonado MD [address] [address] ENUCLEATION, PROSTATE, TRANSURETHRAL, USING HOLMIUM LASER [01618 (CPT )] Scheduled Procedures Name Priority Associated [...] documented as of this encounter Care Teams Undercoater Relationship Specialty Start Date End Date Ryne Bergman MD [address] [place] [address] PCP - General 04/21/24 Abiola Loyola APRN [address] [address] Nurse Practitioner Urology 10/30/24 Aarti Maldonado MD [address] [address] Surgeon Urology 01/10/25 documented as of this encounter
--- OUTSIDE RECORDS SUMMARY | 2025-04-17 11:40 | XMS_ITS | Encounter Summary ---
Author Organization [facility] Address [address] [place] [address] Care Team Providers Care Size Marker Name Role Phone Ryne Bergman MD Primary Care Provider [phone] Abiola Loyola NET MENDER Unavailable [phone] Aarti Maldonado MD Unavailable [phone] Encounter Details Date Type Department Care Team (Late st Contact Info) Description 04/16/[address] [facility] Urology [address], [address] [place] [address] Aarti Maldonado MD [address] [place] [address] Social History Tobacco Use Types [...] Hospital Encounter [facility] RO[facility] [address] [place] [address] Aarti Maldonado MD [address] [address] 04/27/2025 7:30 AM EDT - 04/27/2025 9:45 AM EDT Surgery [facility] RO[facility] [address] [place] [address] Aarti Maldonado MD [address] [address] ENUCLEATION, PROSTATE, TRANSURETHRAL, USING HOLMIUM LASER [[id number] (CPT )] Scheduled Procedures Name Priority Associated Diagnoses Date/Ti me ENUCLEATION, PROSTATE, TRANSURETHRAL, USING HOLMIUM LASER BPH (benign prostatic hyperplasia) 04/27/2025 7:30 AM EDT documented as of this encounter Visit Diagnoses Diagnosis Urinary tract infection- Primary Urinary tract infection, site not specified BPH (benign prostatic hyperplasia) Unspecified hyperplasia of [...] as of this encounter Care Teams Size Marker Relationship Specialty Start Date End Date Ryne Bergman MD [address] [place] [address] PCP - General 04/21/24 Abiola Loyola APRN [address] [address] Nurse Practitioner Urology 10/30/24 Aarti Maldonado MD [address] [facility] [address] [place] [address] Surgeon Urology 01/10/25 documented as of this encounter
--- OUTSIDE RECORDS SUMMARY | 2025-04-17 11:40 | XMS_ITS | Encounter Summary ---
Author Organization [facility] Address [address] [place] [address] Care Team Providers Care Lime Spreader Name Role Phone Ryne Bergman MD Primary Care Provider [phone] Abiola Loyola FLOWER BUNCHER OR PICKER Unavailable [phone] Aarti Maldonado MD Unavailable [phone] Encounter Details Date Type Department Care Team (Late st Contact Info) Description 03/14/2025 Telephone [place] [facility] [address], 2nd [place] [address] Aarti Maldonado MD [address] [place] [address] Social History Tobacco Use Types [...] Hospital Encounter [facility] A OPERATING ROOM [address] [place] [address] Aarti Maldonado MD [address] [address] 04/27/2025 7:30 AM EDT - 04/27/2025 9:45 AM EDT Surgery [facility] A OPERATING ROOM [address] [place] [address] Aarti Maldonado MD [address] [address] ENUCLEATION, PROSTATE, TRANSURETHRAL, USING HOLMIUM LASER [[id number] (CPT )] Scheduled Procedures Name Priority Associated [...] documented as of this encounter Care Teams Lime Spreader Relationship Specialty Start Date End Date Ryne Bergman MD [address] [place] [address] PCP - General 04/21/24 Abiola Loyola APRN [address] [address] Nurse Practitioner Urology 10/30/24 Aarti Maldonado MD [address] [address] Surgeon Urology 01/10/25 documented as of this encounter
--- OUTSIDE RECORDS SUMMARY | 2025-04-17 11:40 | XMS_ITS | Encounter Summary ---
Author Organization [facility] yste Address [address] [place] [address] Care Team Providers Care Temporary Help Agency Referral Clerk Name Role Phone Ryne Bergman MD Primary Care Provider + Encounter Details Date Type Department Care Team (Late st Contact Info) Description 03/13/2025 Patient Outreach [facility] CASE MANAGEMENT [facility]PITALS[facility]rita Urena RN [address] [place] [address] Social History Tobacco Use Types Packs/Day Years [...] verbalized understanding. Patient states to have 03/10/25 [facility] ED visit regarding chest pain. Patient states to have been treated and discharged. Patient states to have had 03/12/25 PCP and 03/13/25 cardiology appointment and received recommendations. Patient states to be awaiting scheduling of stress test and diabetic education appointment. Note per [facility] referral for nutrition education at [facility]; discussed with patient and patient voiced intent [...] Patient Has Completed Other Patient Education/Resources 19/04 [facility] Nurse Call Line, [facility] 19/04 Nurse Call Line Education Method [...] Description 06/12/2025 3:00 PM EDT Office Visit [facility]INE [address] [place] [address] Ryne Bergman MD [address] [place] [address] 03/14/2026 2:15 PM EDT Office Visit [facility] MEDICINE [address] [place] [address] Ryne Bergman MD [address] [place] [address] documented as of this encounter Visit Diagnoses Not on filedocumented in this encounter Additional Health Concerns Assessment Noted Time PHQ-2 Depression Total Score: 2 11/23/19 24 10:16 AM EST documented as of this encounter Care Teams Temporary Help Agency Referral Clerk Relationship Specialty Start Date End Date Ryne Bergman MD [address] [place] [address] PCP - General Family Medicine 01/08/22 documented as of this encounter
--- OUTSIDE RECORDS SUMMARY | 2025-04-17 11:40 | XMS_ITS | Encounter Summary ---
Author Organization [facility] Address [address] [place] [address] Care Team Providers Care Mail Superintendent Name Role Phone Ryne Bergman MD Primary Care Provider [phone] Abiola Loyola TRAFFIC CONTROL SPECIALIST Unavailable [phone] Aarti Maldonado MD Unavailable [phone] Encounter Details Date Type Department Care Team (Late st Contact Info) Description 03/23/2025 Telephone [place] [facility] Urology [address], [address] [place] [address] Aarti Maldonado MD [address] [place] [address] Social History Tobacco Use Types [...] Hospital Encounter [facility] A OPERATING ROOM [address] [place] [address] Aarti Maldonado MD [address] [address] 04/27/2025 7:30 AM EDT - 04/27/2025 9:45 AM EDT Surgery [facility] A OPERATING ROOM [address] [place] [address] Aarti Maldonado MD [address] [address] ENUCLEATION, PROSTATE, TRANSURETHRAL, USING HOLMIUM LASER [[id number] (CPT )] Scheduled Procedures Name Priority Associated [...] documented as of this encounter Care Teams Mail Superintendent Relationship Specialty Start Date End Date Ryne Bergman MD [address] [place] [address] PCP - General 04/21/24 Abiola Loyola APRN [address] [address] Nurse Practitioner Urology 10/30/24 Aarti Maldonado MD [address] [address] Surgeon Urology 01/10/25 documented as of this encounter
--- OUTSIDE RECORDS SUMMARY | 2025-04-17 11:40 | XMS_ITS | Encounter Summary ---
Author Organization [facility] Address [address] [place] [address] Care Team Providers Care Automotive Painter Name Role Phone Ryne Bergman MD Primary Care Provider [phone] Abiola Loyola APRN Unavailable [phone] Aarti Maldonado MD Unavailable [phone] Encounter Details Date Type Department Care Team (Late st Contact Info) Description 04/02/2025 Telephone [place] [facility] Urology [address], [address] [place] [address] Aarti Maldonado MD [address] [place] [address] Social History Tobacco Use Types [...] Gonzales, patient to have urine culture at [facility] documented in this encounter Plan of Treatment Upcoming Encounters Date Type Department Care Team (Latest Contact Info) Description 04/27/2025 7:30 AM EDT Hospital Encounter [facility] OPERATING ROOM [address] [place] [address] Aarti Maldonado MD [address] [address] 04/27/2025 7:30 AM EDT - 04/27/2025 9:45 AM EDT Surgery [facility] A OPERATING ROOM [address] [place] [address] Aarti Maldonado MD [address] [address] ENUCLEATION, PROSTATE, TRANSURETHRAL, USING HOLMIUM LASER [[id number] (CPT )] Scheduled Orders Name Type Priority [...] documented as of this encounter Care Teams Automotive Painter Relationship Specialty Start Date End Date Ryne Bergman MD [address] [place] [address] PCP - General 04/21/24 Abiola Loyola APRN [address] [address] Nurse Practitioner Urology 10/30/24 Aarti Maldonado MD [address] [facility] [place] [address] Surgeon Urology 01/10/25 documented as of this encounter
--- OUTSIDE RECORDS SUMMARY | 2025-04-17 11:40 | XMS_ITS | Clinical Summary ---
Author Organization [facility] yste Address [address] [place] [address] Care Team Providers Care Staffing Manager Name Role Phone Ryne Bergman MD [...] forms for patient assistance program from [employer]ft[employer] Likelii for Ozempic. Patient will complete and return [...] Department Care Team Description 04/10/2025 Patient Outreach [facility] CASE MANAGEMENT Sandrita Logan RN 03/24/2025 Refill [facility] MEDICINE [address] [address] Ryne Bergman MD Type 2 diabetes mellitus with hyperglycemia, with long-term current use of insulin 03/13/2025 Patient Outreach [facility] CASE MANAGEMENT Sandrita Logan RN 03/12/2025 2:15 PM EDT Office Visit [facility] MEDICINE [address] [address] Ryne Bergman MD Medicare annual wellness visit, subsequent (Primary Dx); Annual physical exam; Type 2 diabetes mellitus with hyperglycemia, with long-term current use of insulin 03/12/2025 Travel 03/02/2025 Refill [facility] MEDICINE [address] [address] Ryne Bergman MD 02/12/2025 4:15 PM EDT Office Visit [facility] [address] [address] Ryne Bergman MD Hypotension due to drugs (Primary Dx); Anemia, unspecified type; Restless legs syndrome (RLS) 02/12/2025 Travel 02/08/2025 Refill [facility] MEDICINE [address] [place] [address] Ryne Bergman MD Primary hypertension 02/04/2025 Results Follow-Up [facility] MEDICINE [address] [place] [address] Ryne Bergman MD 01/29/2025 1:32 PM EDT - 01/29/2025 11:59 PM EDT Hospital Encounter [facility] [address] [place] [address] Ryne Bergman MD Encounter for screening for lung cancer; Personal history of nicotine dependence Discharge Disposition: Home or Self Care 01/29/2025 Travel 01/25/2025 Telephone [facility] MEDICINE [address] [place] [address] Ryne Bergman MD FAX 01/18/2025 Telephone [facility] MEDICINE [address] [place] [address] Ryne Bergman MD Prior Authorization (Dexcom G7 Sensor ) from Last 3 Months Immunizations Immunization Administration Dates Next Due COVID-19 (MODERNA) 1st,2nd,3 rd Dose Monovalent 03/07/2021,02/07/2021 Flu Vaccine Quad PF >36MO 08/23/2019,07/30/2018 Fluzone (or Fluarix & Flulav al for VFC) >6mos 08/24/2023,07/28/2022,08/23/2019,07/30 Hepatitis A 07/30/2018 Pneumococcal Conjugate 20-Va lent (PCV20) 11/23/2023 Pneumococcal Polysaccharide (PPSV23) 07/25/2018 Family History Medical History Relation Name Comments Alcohol abuse Father Carson Cash Cancer Father Carson [place] Lung & bone c ancer Alcohol abuse Mother Carson [place] Cancer Mother Carson [place] Lung & bone c ancer Relation Name Status Comments Father Carson [place] Alive Mother Carson Cash Alive Social History Tobacco Use Types [...] [facility] [address] [place] [address] Ryne Bergman MD [address] [place] [address] 03/14/2026 2:15 PM EDT Office Visit [facility] MEDICINE [address] [place] [address] Ryne Bergman MD [address] [place] [address] Health Maintenance Due Date Last Done [...] Additional history exists HEMOGLOBIN A1C 09/11/2025 03/12/2025, 03/, 09/07/2024, Additional history exists URINE MICROALBUMIN-CREATININ E [...] Hemoglobin A1C 8.3(A) 4.5 - 5.7 % [facility] Lot Number [id number] [facility] Expiration Date 11/13/2026 [facility] Blood 03/12/2025 2:55 PM EDT us Ryne Bergman MD POINT OF CARE TEST ORDER MICHELL Final Result [facility]
[address] [place] [address], * IMAGING SCANNED (03/12/2025) Only the most recent of2 resultswithin the time period is included. Anatomical Region Laterality Modality Radiographic Mansi ging us Ryne Bergman MD IMG DIAGNOSTIC IMAGING O [...] MD 02/02/2025 10:03 AM EDT Workstation ID: [id number] Narrative 02/02/2025 10:[address] CHEST [...] spine fusion is noted. . Procedure Note SilverEl miller MD - 02/02/2025 CT CHEST LOW DOSE [...] MD 02/02/2025 10:03 AM EDT Workstation ID: [id number] Ryne Bergman MD IMG CT ORDERABLES Final Result * POC Albumin/Creatinine [...] Most Recently Relevant to Health Maintenance Insurance [employer] H[employer] Care Teams Staffing Manager Relationship Specialty Start Date End Date Ryne Bergman MD [address] [place] [address] PCP - General Family Medicine 01/08/22
--- OUTSIDE RECORDS SUMMARY | 2025-04-17 11:40 | XMS_ITS | Encounter Summary ---
Author Organization [facility] yste Address [address] [place] [address] Care Team Providers Care Production Control Specialist Name Role Phone Ryne Bergman MD Primary Care Provider + Reason for Visit * Reason Comments Med Refill Encounter Details Date Type Department Care Team (Late st Contact Info) Description 03/02/2025 Refill [facility] [address] [place] [address] Ryne Bergman MD [address] [place] [address] Social History Tobacco Use Types [...] [facility] [address] [place] [address] Ryne Bergman MD [address] [place] [address] 03/14/2026 2:15 PM EDT Office Visit [facility] [address] [place] [address] Ryne Bergman MD [address] [place] [address] documented as of this encounter Visit Diagnoses Not on filedocumented in this encounter Additional Health Concerns Assessment Noted Time PHQ-2 Depression Total Score: 2 11/23/19 24 10:16 AM EST documented as of this encounter Care Teams Production Control Specialist Relationship Specialty Start Date End Date Ryne Bergman MD [address] [place] [address] PCP - General Family Medicine 01/08/22 documented as of this encounter
--- OUTSIDE RECORDS SUMMARY | 2025-04-17 11:40 | XMS_ITS | Encounter Summary ---
Author Organization [facility] yste Address [address] [place] [address] Care Team Providers Care Manager Ent Name Role Phone Ryne Bergman MD Primary Care Provider + Reason for Visit * Reason Comments Med Refill Encounter Details Date Type Department Care Team (Late st Contact Info) Description 04/02/2023 Refill [facility] [address] [place] [address] Ryne Bergman MD [address] [place] [address] Type 2 diabetes mellitus with [...] Description 06/12/2025 3:00 PM EDT Office Visit [facility] MEDICINE [address] [place] [address] Ryne Bergman MD [address] [place] [address] 03/14/2026 2:15 PM EDT Office Visit [facility] MEDICINE [address] [place] [address] Ryne Bergman MD [address] [place] [address] documented as of this encounter Visit Diagnoses Diagnosis Type 2 diabetes mellitus with hyperglycemia, with long-term current use of insulin documented in this encounter Additional Health Concerns Assessment Noted Time PHQ-2 Depression Total Score: 2 11/12/19 23 12:00 PM EST documented as of this encounter Care Teams Manager Ent Relationship Specialty Start Date End Date Ryne Bergman MD [address] [place] [address] PCP - General Family Medicine 01/08/22 documented as of this encounter
--- OUTSIDE RECORDS SUMMARY | 2025-04-17 11:40 | XMS_ITS | Clinical Summary ---
Author Organization [facility] Address [address] [place] [address] Care Team Providers Care Sampler Ovens Name Role Phone Ryne Bergman MD Primary Care Provider [phone] Abiola Loyola APRN Unavailable [phone] Aarti Maldonado MD Unavailable [phone] Allergies Active Allergy Reactions Criticality Noted Date [...] 10/30/2024 DENNIS (stress urinary incontinence), male 10/30/19 25 Postlaminectomy syndrome of cervical region 11/2024 Obstructive uropathy 10/30/2024 Urinary tract infection 10/30/2024 BPH with obstruction/lower urinary tract symptom s 02/22/2024 Primary hypertension 11/12/2022 Bipolar disorder with moderate depression 2021 Resolved Problems Problem Noted Date Diagnosed Date Resolved Date BPH (benign prostatic hyperplasia) 10/30/2024 10/30/2024 Encounters Date Type Department Care Team Description 04/16/2025 Telephone [facility] Urology [address], [address] [place] [address] Aarti Maldonado MD 04/02/2025 Telephone [facility] Urology [address], [facility] [place] [address] Aarti Maldonado MD 03/23/2025 Telephone [facility] Urology [address], [address] [place] [address] Aarti Maldonado MD 03/14/2025 2:45 PM EDT Pre-Admission Testing [facility] Pre-op Clinic [address], [facility] [place] [address] Preop examination (Primary Dx) 03/14/2025 Telephone [facility] Urology [address], [address] [place] [address] Aarti Maldonado MD 03/14/2025 Travel 03/12/2025 8:03 AM EDT - 03/12/2025 11:59 PM EDT Hospital Encounter [facility] [address] [place] [address] Benign prostatic hyperplasia with urinary frequency Discharge Disposition: Home or Self Care 03/12/2025 7:40 AM EDT - 03/12/2025 8:02 AM EDT Hospital Encounter [facility] [address] [place] [address] Benign prostatic hyperplasia with urinary frequency Discharge Disposition: Home or Self Care 03/12/2025 Results Follow-Up Medical Office Building Urology [address] [facility], [address] [place] [address] Aarti Maldonado MD 03/12/2025 Telephone [facility] Urology [address], [facility] [place] [address] Aarti Maldonado MD 03/09/25 Final Urine culture results 03/12/2025 Travel 03/09/2025 Orders Only [facility] Urology [address], [address] [place] [address] Aarti Maldonado MD 03/09/2025 Telephone [facility] Urology [address], [address] [place] [address] Aarti Maldonado MD HCN Clinical Concern/Question 03/08/2025 Orders Only [facility] Urology [address], [address] [place] [address] Aarti Maldonado MD Microhematuria (Primary Dx) 03/08/2025 Telephone [facility] Urology [address], [address] [place] [address] Aarti Maldonado MD 03/05/25 Urine culture results from [facility] 02/13/2025 Telephone [facility] Urology [address] [address] Aarti Maldonado MD 02/13/2025 Telephone [facility] Urology [address] [address] Aarti Maldonado MD from Last 3 Months Immunizations Immunization Administration Dates Next Due Hep A, Adult 07/30/2018 Influenza, injectable, quadr ivalent, preservative free 08/24/2023,07/28/2022,08/23/2019,07/30 Pneumococcal 20-edinson Conj Vaccine 11/23/2023 Pneumococcal Polysaccharide PPV23 07/25/2018 Family History Medical History Relation Name Comments Cancer Father [place] Cash Hypertension Mother Tawnya Castrejon Kidney disease Mother Tawnya Castrejon Anesthesia problems Neg Hx Malig Hyperthermia Neg Hx Relation Name Status Comments Father [place] Mother Tawnya Castrejon Social History Tobacco Use [...] Encounter [facility] OPERATING ROOM [address] [place] [address] [facility]ado [facility] [address] [facility] [address] [place] [address] 04/27/2025 7:30 AM EDT - 04/27/2025 9:45 AM EDT Surgery [facility] A OPERATING ROOM [address] [place] [address] Aarti Maldonado MD [address] [place] [address] ENUCLEATION, PROSTATE, TRANSURETHRAL, USING HOLMIUM LASER [00630 (CPT )] Scheduled Procedures Name Priority Associated [...] 2023 [facility]-Diabetes: Hemoglobin A1C 05/22/2024 11/23/2023, 07/28/2022 [id number] Vaccine ( season) 2024 03/07/2021, 02/07/2021 [facility]-Influenza [...] and 800 s/mm2 used to generate calculated s=6127 s/mm2 and ADC map; and an acquired high b =1400 s/mm2; axial 3D dynamic contrast-enhanced [id number] imaging with <10 sec temporal resolution were [...] 50 and 800 s/mm2 used to generatecalculated w=9646 s/mm2 and ADC map; and an acquired high b =1400 s/mm2;axial 3D dynamic contrast-enhanced [id number] imaging with <10 sectemporal resolution were acquired [...] Dawson Sheppard MD on 03/13/2025 5:25 PM us Katelyn Fuller MD IMG XR PROCEDURES Final Result from Last 3 Months Insurance [facility] MEDICARE Care Teams Sampler Ovens Relationship Specialty Start Date End Date Ryne Bergman MD [address] [place] [address] PCP - General 04/21/24 Abiola Loyola APRN [address] [place] [address] Nurse Practitioner Urology 10/30/24 Aarti Maldonado MD [address] [place] [address] Surgeon Urology 01/10/25
--- OUTSIDE RECORDS SUMMARY | 2025-04-17 11:40 | XMS_ITS | Encounter Summary ---
Author Organization [facility] Address [address] [place] [address] Care Team Providers Care Knockout Man Name Role Phone Ryne Bergman MD Primary [...] Description 06/12/2025 3:00 PM EDT Office Visit [facility] MEDICINE [address] [place] [address] Ryne Bergman MD [address] [place] [address] 03/14/2026 2:15 PM EDT Office Visit [facility] [address] [place] [address] Ryne Bergman MD [address] [place] [address] documented as of this encounter Visit Diagnoses Not on filedocumented in this encounter Additional Health Concerns Assessment Noted Time PHQ-2 Depression Total Score: 2 11/23/19 24 10:16 AM EST documented as of this encounter Care Teams Knockout Man Relationship Specialty Start Date End Date Ryne Bergman MD [address] [place] [address] PCP - General Family Medicine 01/08/22 documented as of this encounter
--- OUTSIDE RECORDS SUMMARY | 2025-04-17 11:40 | XMS_ITS ---
[facility] Address [address] [place] [address] Care Team Providers Care Coat Maker Name Role Phone Ryne Bergman MD Primary Care Provider + High Risk Care Management Status:Engaged (Active) Start date:03/08/2025 Enrollment date:03/13/2025 Enrollment reason:Identified using claims or encounter data Related social drivers of health:Social Connections, Financial Resource Strain, Stress, Physical Activity, Food Insecurity, Transportation Needs, Housing Stability Overview Esa OLIVAS A1C Case Team Name Relationship Phone Sandrita Kate RN(Responsible Staff) Ambulator y Flue Lining Dipper [phone] Continued Care and Services Coordination
--- OUTSIDE RECORDS SUMMARY | 2025-04-17 11:40 | XMS_ITS | Encounter Summary ---
Author Organization [facility] Address [address] [place] [address] Care Team Providers Care Industrial Technician Name Role Phone Ryne Bergman MD Primary Care Provider [phone] Abiola Loyola PLATE TAKE OUT WORKER Unavailable [phone] Aarti Maldonado MD Unavailable [phone] Reason for Visit * Reason Onset Date Comments 03/09/25 Final Urine culture results 03/12/2025 Encounter Details Date Type Department Care Team (Late st Contact Info) Description 03/12/2025 Telephone [facility] [address], [address] [place] [address] Aarti Maldonado MD [address] [place] [address] 03/09/25 Final Urine culture results [...] Hospital Encounter [facility] OPERATING ROOM [address] [place] [address] Aarti Maldonado MD [address] [address] 04/27/2025 7:30 AM EDT - 04/27/2025 9:45 AM EDT Surgery [facility] A OPERATING ROOM [address] [place] [address] Aarti Maldonado MD [address] [address] ENUCLEATION, PROSTATE, TRANSURETHRAL, USING HOLMIUM LASER [35078 (CPT )] Scheduled Procedures Name Priority Associated [...] documented as of this encounter Care Teams Industrial Technician Relationship Specialty Start Date End Date Ryne Bergman MD [address] [facility] [place] [address] PCP - General 04/21/24 Abiola Loyola APRN [address] [place] [address] Nurse Practitioner Urology 10/30/24 Aarti Maldonado MD [address] [place] [address] Surgeon Urology 01/10/25 documented as of this encounter
--- OUTSIDE RECORDS SUMMARY | 2025-04-17 11:40 | XMS_ITS | Encounter Summary ---
Author Organization [facility] Address [address] [place] [address] Care Team Providers Care Program Trainer Name Role Phone Ryne Bergman MD Primary Care Provider + Encounter Details Date Type Department Care Team (Late st Contact Info) Description 02/04/2025 Results Follow-Up [facility] [address] [place] [address] Ryne Bergman MD 210 [place] [address] Social History Tobacco Use Types [...] [facility] [address] [place] [address] Ryne Bergman MD [address] [place] [address] 03/14/2026 2:15 PM EDT Office Visit [facility] MED[facility]INE [address] [place] [address] Ryne Bergman MD [address] [place] [address] documented as of this encounter Visit Diagnoses Not on filedocumented in this encounter Additional Health Concerns Assessment Noted Time PHQ-2 Depression Total Score: 2 11/23/19 24 10:16 AM EST documented as of this encounter Care Teams Program Trainer Relationship Specialty Start Date End Date Ryne Bergman MD [address] [place] [address] PCP - General Family Medicine 01/08/22 documented as of this encounter
== END 2025-04-17 23:59 | disposition home or self-care (01) ==
LOC: LAB 11:35
PROVIDERS: PCP Family Medicine; Visit Provider Urology
DX: R33.9 Retention of urine, unspecified (principal)
CPT/HCPCS: 87086

== ENCOUNTER 2025-04-18 10:20 | Outpatient (CLI) | payer MEDICARE, SELFPAY ==
--- OUTSIDE RECORDS SUMMARY | 2025-03-12 07:40 | XMS_ITS | Encounter Summary ---
Author Organization Healthcare Address [address] [id number] Care Team Providers Care Planing Machine Operator Name Role Phone Ryne Bergman MD Primary Care Provider [phone] Abiola Loyola APRN Unavailable [phone] Aarti Maldonado MD Unavailable [phone] Reason for Referral * Imaging (Routine) - Closed Specialty Diagnoses / Procedures Referred By Kriss colin Referred To Contact Radiology Diagnoses Benign prostatic hyperplasia with urinary frequency Procedures MR Prostate w and wo IV Contrast Aarti Maldonado MD [address] [address] Phone: tel: fax: Referral ID Status Reason Start Date Expiration Date Visits Re quested Visits Authorized [id number] Closed 01/10/2025 07/12/2026 1 1 Reason for Visit * Imaging (Routine) - Closed Specialty Diagnoses / Procedures Referred By Kriss colin Referred To Contact Radiology Diagnoses Benign prostatic hyperplasia with urinary frequency Procedures MR Prostate w and wo IV Contrast Aarti Maldonado MD [address] [address] Phone: tel: fax: Referral ID Status Reason Start Date Expiration Date Visits Re quested Visits Authorized [id number] Closed 01/10/2025 07/12/2026 1 1 Encounter Details Date Type Department Care Team (Latest Contact Info) Description 03/12/2025 7:40 AM EDT - 03/12/2025 8:02 AM EDT Hospital Encounter [facility] [address] [place] [address] Benign prostatic hyperplasia with urinary frequency Discharge Disposition: Home or Self Care Social History Tobacco Use Types Packs/Day Years Used Date Smoking Tobacco: Some Days Cigarettes 0.3 1.4 Started: 03/27/2024 Passive Smoke Exposure: Current Smokeless [...] on file documented as of this encounter Medications at Time of Discharge albuterol 108 (90 Base) MCG/ACT inhaler INHALE 1 PUFF BY MOUTH EVERY 6 HOURS 11/18/2024 aspirin 81 MG EC tablet Take 1 tablet by mouth 1 time each day. 01/15/2025 BD Pen Needle Rosalia 2nd Gen 32G X 4 MM misc USE 1 PEN SUBCUTANEOUSLY THREE TIMES DAILY WITH INJECTABLE MEDICATION 01/07/2025 diazePAM (Valium) 5 MG tablet Take 1 tablet by mouth every 8 hours as needed for anxiety (for MRI). 1 tablet 01/10/2025 finasteride (Proscar) 5 MG tablet Take 1 tablet by mouth 1 time each day. 04/03/2024 FLUoxetine (PROzac) 20 MG capsule Take 1 capsule by mouth 1 time each day. 11/23/2023 FLUoxetine (PROzac) 40 MG capsule Take 1 capsule by mouth daily. HumaLOG MIX 75/25 KWIKPEN (75-25) 100 UNIT/ML injection pen INJECT 60 UNITS SUBCUTANEOUSLY ONCE IN THE MORNING, 30 UNITS AT NOON, AND 60 UNITS IN THE EVENING hydrALAZINE (Apresoline) 25 MG tablet TAKE 1 TABLET BY MOUTH 4 TIMES DAILY NEEDED FOR BLOOD PRESSURE. TAKE 1 TABLET IF BLOOD PRESSURE GREATER THAN 180 09/28/2024 Jardiance 10 MG Take 1 tablet by mouth daily. metFORMIN XR (Glucophage-XR) 750 MG 24 hr tablet Take 1 tablet by mouth 1 time each day with dinner. metoprolol succinate XL (Toprol-XL) 25 MG 24 hr tablet Take 1 tablet by mouth daily. 03/11/2025 NIFEdipine CC (Adalat CC) 60 MG 24 hr tablet Take 1 tablet by mouth daily before breakfast. Do not crush, chew, or split. OneTouch Verio test strip USE 1 STRIP TO CHECK GLUCOSE TWICE DAILY DIRECTED 11/02/2024 pioglitazone (Actos) 45 MG tablet Take 1 tablet by mouth daily. potassium chloride CR (K-Tab) 20 MEQ ER tablet Take 1 tablet by mouth 1 time each day. 11/23/2023 pramipexole (Mirapex) 1 MG tablet Take 1 tablet (1 mg) by mouth 1 (one) time each day. 08/03/2024 rosuvastatin (Crestor) 10 MG tablet Take 2 tablets by mouth 1 time each day. 11/23/2023 spironolactone (Aldactone) 25 MG tablet Take 1 tablet by mouth daily. tamsulosin (Flomax) 0.4 MG 24 hr capsule Take 1 capsule by mouth 2 times a day. 08/26/2024 topiramate (Topamax) 25 MG tablet Take 1 tablet by mouth 2 times a day. valsartan (Diovan) 320 MG tablet Take 1 tablet by mouth 1 time each day. 11/23/2023 documented as of this encounter Plan of Treatment Upcoming Encounters Date Type Department Care Team (Latest Contact Info) Description 04/27/2025 7:30 AM EDT Hospital Encounter [facility] [address] [place] [address] Aarti Maldonado MD [address] [address] 04/27/2025 7:30 AM EDT - 04/27/2025 9:45 AM EDT Surgery [facility] [address] [place] [address] Aarti Maldonado MD [address] [address] ENUCLEATION, PROSTATE, TRANSURETHRAL, USING HOLMIUM LASER [29762 (CPT )] Scheduled Procedures Name Priority Associated Diagnoses Date/Ti me ENUCLEATION, PROSTATE, TRANSURETHRAL, USING HOLMIUM LASER BPH (benign prostatic hyperplasia) 04/27/2025 7:30 AM EDT documented as of this encounter Procedures Procedure Name Priority Date/Time Associated Diagnosis Comments MR PROSTATE W AND WO IV CONTRAST Routine 03/12/2025 9:14 AM EDT Benign prostatic hyperplasia with urinary frequency documented in this encounter Results * MR Prostate w and wo IV Contrast (03/12/2025 9:14 AM EDT) Anatomical Region Laterality Modality Abdomen Magnetic Resonan ce Impressions 03/12/2025 11:10 AM EDT Overall PI-RADS category: 2 No high-grade prostatic lesion identified. CRITICAL RESULT: No. COMMUNICATION: Per this written report. PI-RADSR v2.1 Assessment Categories ----- PIRADS 1 Very low (clinically significant cancer is highly unlikely to be present) PIRADS 2 Low (clinically significant cancer is unlikely to be present) PIRADS 3 Intermediate (the presence of clinically significant cancer is equivocal) PIRADS 4 High (clinically significant cancer is likely to be present) PIRADS 5 Very high (clinically significant cancer is highly likely to be present) Drafted by Jaye Andres DO on 03/12/2025 10:23 AM Final report signed by Jaye Andres DO on 03/12/2025 11:10 AM Narrative 03/12/2025 11:10 AM EDT CLINICAL INDICATION: 64 year old with elevated PSA. Prostate cancer suspected. PSA: 4.37 on 10/30/2024 WHIT: Unknown Biopsies: None Prior therapy: None TECHNIQUE: Multiplanar, multisequence imaging of the pelvis in accordance with PI-RADS recommendations before and after intravenous administration of 10.5 mL Gadavist at 2.0 ml/sec on a 3.0 T platform using a 18-channel external phased array coil. Dedicated three-plane small FOV VINOD T2; axial diffusion weighted imaging with b-values 50 and 800 s/mm2 used to generate calculated q=3736 s/mm2 and ADC map; and an acquired high b =1400 s/mm2; axial 3D dynamic contrast-enhanced N2ostmrcde imaging with <10 sec temporal resolution were acquired using 3 mm slice thickness in addition to full-pelvis pre contrast T1 VINOD and post-contrast axial and coronal fat suppressed 3D Gradient echo T1-weighted imaging. Advanced 3D workstation manipulation and review of the data set was performed by the interpreting physician to further define anatomy and possible pathology. Images of areas of interest were created utilizing various techniques. These images were saved and transferred to PACS if significant. COMPARISON: CT abdomen/pelvis 02/10/2024 from outside hospital FINDINGS: Size: 5.9 x 5.2 x 5.3 cm with a volume of 79 cubic cm PSA Density: 0.06 ng/mL/mL Quality: Mild degradation from patient motion and rectal gas Hemorrhage: No Peripheral zone: Few linear foci of T2 hypointensity, likely sequela of prior prostatitis. No focal finding. Transition zone: Moderate heterogeneity consistent with prostatic hyperplasia. No focal finding. Neurovascular bundles: Unremarkable Seminal Vesicles: Unremarkable Lymph Nodes: No lymphadenopathy. Bones: No osseous metastases. Other pelvic organs: Unremarkable. Procedure Note Jaye Andres, DO - 03/12/2025 CLINICAL INDICATION: 64 year old with elevated PSA. Prostate cancer suspected. PSA: 4.37 on 10/30/2024 WHIT: Unknown Biopsies: None Prior therapy: None TECHNIQUE: Multiplanar, multisequence imaging of the pelvis in accordance withPI-RADS recommendations before and after intravenous administration of10.5 mL Gadavist at 2.0 ml/sec on a 3.0 T platform using a 18-channelexternal phased array coil. Dedicated three-plane small FOV VINOD T2; axialdiffusion weighted imaging with b-values 50 and 800 s/mm2 used to generatecalculated a=2146 s/mm2 and ADC map; and an acquired high b =1400 s/mm2;axial 3D dynamic contrast-enhanced W0gdlwoseu imaging with <10 sectemporal resolution were acquired using 3 mm slice thickness in additionto full-pelvis pre contrast T1 VINOD and post-contrast axial and coronal fatsuppressed 3D Gradient echo T1-weighted imaging. Advanced 3D workstation manipulation and review of the data set wasperformed by the interpreting physician to further define anatomy andpossible pathology. Images of areas of interest were created utilizingvarious techniques. These images were saved and transferred to PACS ifsignificant. COMPARISON: CT abdomen/pelvis 02/10/2024 from outside hospital FINDINGS: Size: 5.9 x 5.2 x 5.3 cm with a volume of 79 cubic cm PSA Density: 0.06 ng/mL/mL Quality: Mild degradation from patient motion and rectal gas Hemorrhage: No Peripheral zone: Few linear foci of T2 hypointensity, likely sequela ofprior prostatitis. No focal finding. Transition zone: Moderate heterogeneity consistent with prostatichyperplasia. No focal finding. Neurovascular bundles: Unremarkable Seminal Vesicles: Unremarkable Lymph Nodes: No lymphadenopathy. Bones: No osseous metastases. Other pelvic organs: Unremarkable. IMPRESSION: Overall PI-RADS category: 2 No high-grade prostatic lesion identified. CRITICAL RESULT: No. COMMUNICATION: Per this written report. PI-RADSR v2.1 Assessment Categories ----- PIRADS 1 Very low (clinically significant cancer is highly unlikely to bepresent) PIRADS 2 Low (clinically significant cancer is unlikely to be present) PIRADS 3 Intermediate (the presence of clinically significant cancer isequivocal) PIRADS 4 High (clinically significant cancer is likely to be present) PIRADS 5 Very high (clinically significant cancer is highly likely to bepresent) Drafted by Jaye Andres DO on 03/12/2025 10:23 AM Final report signed by Jaye Andres DO on 03/12/2025 11:10 AM Aarti Maldonado MD IM MRI PROCEDURES Final Res ult documented in this encounter Visit Diagnoses Diagnosis Benign prostatic hyperplasia with urinary frequency BPH (benign prostatic hyperplasia) Unspecified hyperplasia of prostate without urinary obstruction and other lower urinary tract symptoms (LUTS) documented in this encounter Administered Medications Inactive Administered Medications - up to 3 most recent administrations Medication Order MAR Action Action Date Dose Rate Site gadobutrol (Gadavist) injection 10.5 mL 10.5 mL (0.1 mL/kg 105 kg), Intravenous, Once in imaging, 1 dose, Starting on Wed03/12/25 at 0835, Until Wed03/12/25 at 0902, Routine, Imaging Protocol Orders Given 03/12/2025 9:02 AM EDT 10.5 mL documented in this encounter Additional Health Concerns Assessment Noted Time PHQ-9 Depression Total Score: 0 01/11/20 9:55 AM EDT A fall risk assessment has been complete d for the patient 01/10/2025 9:55 AM EDT A Body Mass Index follow-up plan has been documented for the patient 01/10/2025 12:34 PM EDT documented as of this encounter Care Teams Planing Machine Operator Relationship Specialty Start Date End Date Ryne Bergamn MD [address] [place] [address] PCP - General 04/21/24 Abiola Loyola APRN [address] [place] [address] Nurse Practitioner Urology 10/30/24 Aarti Maldonado MD [address] [place] [address] Surgeon Urology 01/10/25 documented as of this encounter
--- OUTSIDE RECORDS SUMMARY | 2025-03-12 08:03 | XMS_ITS | Encounter Summary ---
Author Organization [facility] Address [address] [place] [address] Care Team Providers Care E Learning Developer Name Role Phone Ryne Bergman MD Primary Care Provider [phone] Abiola Loyola APRN Unavailable [phone] Aarti Maldonado MD Unavailable [phone] Encounter Details Date Type Department Care Team (Latest Contact Info) Description 03/12/2025 8:03 AM EDT - 03/12/2025 11:59 PM EDT Hospital Encounter [facility] Radiology [address] [place] [address] Benign prostatic hyperplasia with urinary frequency Discharge [...] Hospital Encounter [facility] OPERATING ROOM [address] [place] [address] Aarti Maldonado MD [address] [address] 04/27/2025 7:30 AM EDT - 04/27/2025 9:45 AM EDT Surgery [facility] OPERATING ROOM [address] [place] [address] Aarti Maldonado MD [address] [address] ENUCLEATION, PROSTATE, TRANSURETHRAL, USING HOLMIUM LASER [[id number] (CPT )] Scheduled Procedures Name Priority Associated [...] documented as of this encounter Care Teams E Learning Developer Relationship Specialty Start Date End Date Ryne Bergman MD [address] [place] [address] PCP - General 04/21/24 Abiola Loyola APRN [address] [facility] [address] [place] [address] Nurse Practitioner Urology 10/30/24 Aarti Maldonado MD [address] [place] [address] Surgeon Urology 01/10/25 documented as of this encounter
--- OUTSIDE RECORDS SUMMARY | 2025-03-12 14:15 | XMS_ITS | Encounter Summary ---
Author Organization [facility] yste Address [address] [place] [address] Care Team Providers Care Recreation Therapist Name Role Phone Ryne Bergman MD Primary Care Provider + Reason for Referral * Health Education (Routine) - Authorized Specialty Diagnoses / Procedures Referred By Contchristopher t Referred To Contact Dietitian Diagnoses Type 2 diabetes mellitus with hyperglycemia, with long-term current use of insulin Procedures AR OFFICE/OUTPATIENT NEW MODERATE MDM 45 MINUTES Ryne Bergman MD [address] [facility] [place] [address] Phone: tel: fax: [facility] [address] [place] [address] Phone: tel: fax: Referral ID Status Reason Start Date Expiration Date Visits Requested Visits Authorized [id number] Authorized Specialty Services Required 03/12/2025 06/11/2026 1 1 Scheduling Instructions Refer to Bodywork Therapist at [facility] Reason for Visit * Reason Comments Medicare Wellness-subsequent Pt not sure of all his BP medications Encounter Details Date Type Department Care Team (Late st Contact Info) Description 03/12/2025 2:15 PM EDT Office Visit [facility] [address] [place] [phone] Ryne Bergman MD [place] [address] Medicare annual wellness visit, subsequent [...] given forms for patient assistance program from [employer] for Ozempic. Patient will complete and return [...] admitted within the past 365 days at [facility]. Current Medical Providers: Patient Care Team: Ryne Bergman MD as PCP - General (Family Medicine) Sandrita Kate RN as Ambulatory Residential Property Consultant (Population Health) Outpatient Medications Prior to Visit [...] tablet Take 1 tablet by mouth Daily. [employer] Verio test strip USE 1 STRIP TO [...] mouth Daily. 90 tablet 3 Continuous Glucose Machine Operator General ([employer] G7 Machine Operator General) device Use 1 each Daily. 1 each [...] CANCER SCREENING 04/11/2029 Pneumococcal Vaccine 50+ Completed [facility] Preventative Services Quick Reference Risk Factors Identified [...] forms for patient assistance program from [employer] for Ozempic. Patient will complete and return [facility] office for faxing along with prescription [...] PM EDT Office Visit [facility] [address] [address] Ryne Bergman MD [address], [place] [address] 03/14/2026 2:15 PM EDT Office Visit [facility] [address] [address] Ryne [...] Hemoglobin A1C 8.3(A) 4.5 - 5.7 % [facility] Lot Number [id number] [facility] Expiration Date 11/13/2026 [facility] Blood 03/12/2025 2:55 PM EDT us Ryne Bergman MD POINT OF CARE TEST ORDER MICHELL Final Result [facility]
[address] [place] [id number], documented in this encounter Visit Diagnoses Diagnosis [...] documented as of this encounter Care Teams Recreation Therapist Relationship Specialty Start Date End Date Ryne Bergman MD [address] [place] [address] PCP - General Family Medicine 01/08/22 documented as of this encounter
--- OUTSIDE RECORDS SUMMARY | 2025-03-14 14:45 | XMS_ITS | Encounter Summary ---
Author Organization Healthcare Address [address] [place] [address] Care Team Providers Care Dredge Hand Name Role Phone Ryne Bergman MD Primary Care Provider [phone] Abiola Loyola APRN Unavailable [phone] Aarti Maldonado MD Unavailable [phone] Encounter Details Date Type Department Care Team (Latest Contact Info) Description 03/14/2025 2:45 PM EDT Pre-Admission Testing [place] [facility] [address], [address] [place] [address] Preop examination (Primary Dx) Social History Tobacco [...] [place] Aarti Mal[place] [facility] [place] Medical History[1] Family History[2] Social History[3] [...] CAD, CHF, dysrhythmias, hyperlipidemia, murmur, pacemaker, past [place] or syncope. hypertension (patient reports cardiology is [...] 03-05-25 03/11/25- provided by patient from his [facility] portal Na 137 K 4.2 Bun 25 [...] into the left ventricle possibly representing septal wood mill supervisor branch flow. No significant valvular stenosis or regurgitation In the setting of increased LV wall thickenss with proximal septal thickening of IVSd 1.4 cm, further evaluation with cardiac MRI ( H protocol is suggested. Also, in the setting of suspected septal wood mill supervisor branch flow, futher evaluation with coronary angiography [...] until he gets cardiac clearance. Rl Lancaster, CANVASS MANAGER [1] Past Medical History: Diagnosis Date Benign prostatic hyperplasia Diabetes mellitus (CMS/HCC) Hypertension Urinary tract infection 2023 [2] Family History Problem Relation Name Age of Onset Hypertension Mother Tawnya Castrejon Kidney disease Mother Tawnya Castrejon Cancer Father [place] Cash Anesthesia problems Neg Hx Malig Hyperthermia [...] card, photo ID, along with power of transactional attorney, guardianship or advanced directives if applicable [...] Hospital Encounter [address] A [address]PERATING ROOM [address] [place] [address] Aarti Maldonado MD [id number] [place] [address] 04/27/2025 7:30 AM EDT - 04/27/2025 9:45 AM EDT Surgery [address]PER[address] [place] [address] Aarti Maldonado MD [address] [place] [address] ENUCLEATION, PROSTATE, TRANSURETHRAL, USING HOLMIUM LASER [18878 (CPT )] Scheduled Procedures Name Priority Associated Diagnoses Date/Ti nc ENUCLEATION, PROSTATE, TRANSURETHRAL, USING HOLMIUM LASER BPH [...] as of this encounter Care Teams Dredge Hand Relationship Specialty Start Date End Date Ryne Bergman MD [address] [place] [address] PCP - General 04/21/24 Abiola Loyola APRN [address] [place] [address] Nurse Practitioner Urology 10/30/24 Aarti Maldonado MD [address] [place] [address] Surgeon Urology 01/10/25 documented as of this encounter
--- OUTSIDE RECORDS SUMMARY | 2025-04-18 10:23 | XMS_ITS | Encounter Summary ---
Author Organization Healthcare Address [address] [place] [address] Care Team Providers Care Forging Die Sinker Name Role Phone Ryne Bergman MD Primary Care Provider [phone] Abiola Loyola APRN Unavailable [phone] Aarti Maldonado MD Unavailable [phone] Encounter Details Date Type Department Care Team (Late st Contact Info) Description 10/30/2019 Orders Only External Location [address] [place] [address] Provider, External Social History Tobacco Use Types [...] Hospital Encounter P[facility] A OPERATING ROOM [address] [place] [address] Aarti Maldonado MD [address] [address] 04/27/2025 7:30 AM EDT - 04/27/2025 9:45 AM EDT Surgery PAV A OPERATING ROOM [address] [place] [address] Aarti Maldonado MD [address] [address] ENUCLEATION, PROSTATE, TRANSURETHRAL, USING HOLMIUM LASER [92081 (CPT )] Scheduled Procedures Name Priority Associated [...] on filedocumented in this encounter Care Teams Forging Die Sinker Relationship Specialty Start Date End Date Ryne Bergman MD [address] [place] [address] PCP - General 04/21/24 Abiola Loyola APRN [address] [place] [address] Nurse Practitioner Urology 10/30/24 Aarti Maldonado MD [address] [place] [address] Surgeon Urology 01/10/25 documented as of this encounter
--- OUTSIDE RECORDS SUMMARY | 2025-04-18 10:23 | XMS_ITS | Encounter Summary ---
[facility] Organization [facility] Address [address] [place] [address] Care Team Providers Care Volunteer Coordinator Name Role Phone Ryne Bergman MD Primary Care Provider + Reason for Visit * Reason Comments Med Refill Encounter Details Date Type Department Care Team (Late st Contact Info) Description 03/24/[address] [facility] [address] [place] [address] Ryne Bergman MD 210 [place] [address] Type 2 diabetes mellitus with [...] EDT Office Visit [facility] [address] [place] [address] Ryne Bergman MD [address] [place] [address] 03/14/2026 2:15 PM EDT Office Visit [facility] [address] [place] [address] Ryne Bergman MD [address] [place] [address] documented as of this encounter Visit Diagnoses Diagnosis Type 2 diabetes mellitus with hyperglycemia, with long-term current use of insulin documented in this encounter Additional Health Concerns Assessment Noted Time PHQ-2 Depression Total Score: 2 11/23/19 24 10:16 AM EST documented as of this encounter Care Teams Volunteer Coordinator Relationship Specialty Start Date End Date Ryne Bergman MD [address] [place] [address] PCP - General Family Medicine 01/08/22 documented as of this encounter
--- OUTSIDE RECORDS SUMMARY | 2025-04-18 10:23 | XMS_ITS | Encounter Summary ---
Author Organization [facility] yste Address [address] [place] [address] Care Team Providers Care Sack Cleaner Name Role Phone Ryne Bergman MD Primary Care Provider + Encounter Details Date Type Department Care Team (Late st Contact Info) Description 04/10/2025 Patient Outreach [facility], MARZENA [address] [place] [address] Social History Tobacco Use Types Packs/Day Years [...] improved diet. Patient states to have had roofer assistant referral and received helpful information regarding diet. [...] Continuous Glucose Monitoring (CGM), taught by Sandrita aKte RN at 04/10/2025 2:55 PM. Learner: Patient Readiness: Acceptance Method: Explanation Response: Verbalizes Understanding Sandrita Neumann [facility] Case Management 04/10/2025, 14:59 EDT documented in this encounter Plan of Treatment Upcoming Encounters Date Type Department Care Team (Late st Contact Info) Description 06/12/2025 3:00 PM EDT Office Visit [facility] [address] [place] [address] Ryne Bergman MD [address] [place] [address] 03/14/2026 2:15 PM EDT Office Visit [facility] [address] [place] [id number] Ryne Bergman MD [address] [place] [address] documented as of this encounter Visit Diagnoses Not on filedocumented in this encounter Additional Health Concerns Assessment Noted Time PHQ-2 Depression Total Score: 2 11/23/19 24 10:16 AM EST documented as of this encounter Care Teams Sack Cleaner Relationship Specialty Start Date End Date Pacheco, Ryne Javy, MD [address] [facility] [place] [address] PCP - General Family Medicine 01/08/22 documented as of this encounter
--- OUTSIDE RECORDS SUMMARY | 2025-04-18 10:23 | XMS_ITS | Encounter Summary ---
Author Organization Healthcare Address [address] [place] [address] Care Team Providers Care Chiropractic Teacher Name Role Phone Ryne Bergman MD Primary Care Provider [phone] Abiola Loyola VENEER MANUFACTURER Unavailable [phone] Aarti Maldonado MD Unavailable [phone] Encounter Details Date Type Department Care Team (Late st Contact Info) Description 03/08/2025 Orders Only [facility] [address], [address] [place] [address] Aarti Maldonado MD [address] [place] [address] Microhematuria (Primary Dx) Social History [...] Hospital Encounter PAV A OPERATING ROOM [address] [place] [address] Aarti Maldonado MD [address] [address] 04/27/2025 7:30 AM EDT - 04/27/2025 9:45 AM EDT Surgery PAV A OPERATING ROOM [address] [place] [address] Aarti Maldonado MD [address] [address] ENUCLEATION, PROSTATE, TRANSURETHRAL, USING HOLMIUM LASER [[id number] (CPT )] Scheduled Procedures Name Priority Associated [...] documented as of this encounter Care Teams Chiropractic Teacher Relationship Specialty Start Date End Date Ryne Bergman MD [address] [place] [address] PCP - General 04/21/24 Abiola Loyola APRN [address] [address] Nurse Practitioner Urology 10/30/24 Aarti Maldonado MD [address] [place] [address] Surgeon Urology 01/10/25 documented as of this encounter
--- OUTSIDE RECORDS SUMMARY | 2025-04-18 10:23 | XMS_ITS | Encounter Summary ---
Author Organization [facility] Address [address] [place] [address] Care Team Providers Care Air Bag Buffer Name Role Phone Ryne Bergman MD Primary Care Provider [phone] Abiola Loyola MAIL CLERK BILLS Unavailable [phone] Aarti Maldonado MD Unavailable [phone] Reason for Visit * Reason Onset Date Comments HCN Clinical Concern/Question 03/09/2025 Encounter Details Date Type Department Care Team (Late st Contact Info) Description 03/09/2025 Telephone [facility] [address] [place] [address] Aarti Maldonado MD [address] [place] [address] HCN Clinical Concern/Question Social [...] optimal time of day to reach caller: [phone] Note: Please do not reply to this message. Follow-up communication and further actions as a result of this message need to be communicated with the patient directly, if the patient is not active onMyChart. If the patient is active on MyChart, they will receive notification of the communication/outcome via [employer]. documented in this encounter Plan of Treatment Upcoming Encounters Date Type Department Care Team (Latest Contact Info) Description 04/27/2025 7:30 AM EDT Hospital Encounter PAV A OPERATING ROOM [address] [place] [address] Aarti Maldonado MD [address] [address] 04/27/2025 7:30 AM EDT - 04/27/2025 9:45 AM EDT Surgery PAV A OPERATING ROOM [address] [place] [address] Aarti Maldonado MD [address] [address] ENUCLEATION, PROSTATE, TRANSURETHRAL, USING HOLMIUM LASER [[id number] (CPT )] Scheduled Procedures Name Priority Associated [...] documented as of this encounter Care Teams Air Bag Buffer Relationship Specialty Start Date End Date Ryne Bergman MD [address] [place] [address] PCP - General 04/21/24 Abiola Loyola APRN [address] [address] Nurse Practitioner Urology 10/30/24 Aarti Maldonado MD [address] [address] Surgeon Urology 01/10/25 documented as of this encounter
--- OUTSIDE RECORDS SUMMARY | 2025-04-18 10:23 | XMS_ITS | Encounter Summary ---
Author Organization [facility] Address [address] [place] [address] Care Team Providers Care Brim Cutter Name Role Phone Ryne Bergman MD Primary Care Provider [phone] Abiola Loyola VEGETABLE LOADER Unavailable [phone] Aarti Maldonado MD Unavailable [phone] Encounter Details Date Type Department Care Team (Late st Contact Info) Description 02/10/2024 Orders Only External Location [address] [place] [address] Nicole Bernstein, DO [address] [place] [address] Social History Tobacco Use Types [...] Hospital Encounter PAV A OPERATING ROOM [address] [place] [address] Aarti Maldonado MD [address] [facility] [address] [place] [address] 04/27/2025 7:30 AM EDT - 04/27/2025 9:45 AM EDT Surgery PAV A OPERATING ROOM [address] [place] [address] Aarti Maldonado MD [address] [place] [address] ENUCLEATION, PROSTATE, TRANSURETHRAL, USING HOLMIUM LASER [14634 (CPT )] Scheduled Procedures Name Priority Associated [...] on filedocumented in this encounter Care Teams Brim Cutter Relationship Specialty Start Date End Date Ryne Bergman MD [address] [place], [place] [id number] PCP - General 04/21/24 Abiola Loyola APRN [address] [place] [address] Nurse Practitioner Urology 10/30/24 Aarti Maldonado MD [address] [place] [address] Surgeon Urology 01/10/25 documented as of this encounter
--- OUTSIDE RECORDS SUMMARY | 2025-04-18 10:23 | XMS_ITS | Encounter Summary ---
Author Organization [facility] Address [address] [place] [address] Care Team Providers Care Internal Investigator Name Role Phone Ryne Bergman MD Primary Care Provider [phone] Abiola Loyola JAVA SOFTWARE ARCHITECT Unavailable [phone] Aarti Maldonado MD Unavailable [phone] Encounter Details Date Type Department Care Team (Late st Contact Info) Description 03/09/2025 [facility] Only [facility] [address], [address] [place] [address] Aarti Maldonado MD [address] [place] [address] Social History Tobacco Use Types [...] Hospital Encounter PAV A OPERATING ROOM [address] [place] [address] Aarti Maldonado MD [address] [address] 04/27/2025 7:30 AM EDT - 04/27/2025 9:45 AM EDT Surgery PAV A OPERATING ROOM [address] [place] [address] Aarti Maldonado MD [address] [address] ENUCLEATION, PROSTATE, TRANSURETHRAL, USING HOLMIUM LASER [[id number] (CPT )] Scheduled Procedures Name Priority Associated [...] documented as of this encounter Care Teams Internal Investigator Relationship Specialty Start Date End Date Ryne Bergman MD [address] [place] [address] PCP - General 04/21/24 Abiola Loyola APRN [address] [place] [address] Nurse Practitioner Urology 10/30/24 Aarti Maldonado MD [address] [place] [address] Surgeon Urology 01/10/25 documented as of this encounter
--- OUTSIDE RECORDS SUMMARY | 2025-04-18 10:23 | XMS_ITS | Encounter Summary ---
Author Organization [facility] Address [address] [place] [address] Care Team Providers Care Logistics Support Name Role Phone Ryne Bergman MD Primary Care Provider [phone] Abiola Loyola APRN Unavailable [phone] Aarti Maldonado MD Unavailable [phone] Reason for Visit * Reason Onset Date Comments 03/05/25 Urine culture results from [facility] 03/08/2025 Encounter Details Date Type Department Care Team (Late st Contact Info) Description 03/08/2025 Telephone [facility] [address], 2nd [place] [address] Aarti Maldonado MD [address] [place] [address] 03/05/25 Urine culture results from [facility] Social History Tobacco Use Types Packs/Day [...] AM EDT 03/05/25 Urine culture results from [facility] and have been uploaded to media. Thank you. documented in this encounter Plan of Treatment Upcoming Encounters Date Type Department Care Team (Latest Contact Info) Description 04/27/2025 7:30 AM EDT Hospital Encounter PAV A OPERATING ROOM [address] [place] [address] Aarti Maldonado MD [address] [address] 04/27/2025 7:30 AM EDT - 04/27/2025 9:45 AM EDT Surgery PAV A OPERATING ROOM [address] [place] [address] Aarti Maldonado MD [address] [address] ENUCLEATION, PROSTATE, TRANSURETHRAL, USING HOLMIUM LASER [[id number] (CPT )] Scheduled Procedures Name Priority Associated [...] documented as of this encounter Care Teams Logistics Support Relationship Specialty Start Date End Date Ryne Bergman MD [address] [place] [address] PCP - General 04/21/24 Abiola Loyola APRN [address] [facility]00 [place] [address] Nurse Practitioner Urology 10/30/24 Aarti Maldonado MD [address] [place] [address] Surgeon Urology 01/10/25 documented as of this encounter
--- OUTSIDE RECORDS SUMMARY | 2025-04-18 10:24 | XMS_ITS | Encounter Summary ---
Author Organization [facility] Address [address] [place] [address] Care Team Providers Care Customs Collector Name Role Phone Ryne Bergman MD Primary Care Provider Abiola Loyola STORE RECEIVING SPECIALIST Unavailable [phone] Aarti Maldonado MD Unavailable [phone] Encounter Details Date Type Department Care Team (Late st Contact Info) Description 03/14/2025 Telephone [place] [facility] [address] [place] [address] Aarti Maldonado MD [address] [place] [address] Social History Tobacco Use Types [...] Hospital Encounter PAV A OPERATING ROOM [address] [place] [address] Aarti Maldonado MD [address] [address] 04/27/2025 7:30 AM EDT - 04/27/2025 9:45 AM EDT Surgery PAV A OPERATING ROOM [address] [place] [address] Aarti Maldonado MD [address] [address] ENUCLEATION, PROSTATE, TRANSURETHRAL, USING HOLMIUM LASER [04364 (CPT )] Scheduled Procedures Name Priority Associated [...] documented as of this encounter Care Teams Customs Collector Relationship Specialty Start Date End Date Ryne Bergman MD [address] [place] [address] PCP - General 04/21/24 Abiola Loyola APRN [address] [address] Nurse Practitioner Urology 10/30/24 Aarti Maldonado MD [address] [address] Surgeon Urology 01/10/25 documented as of this encounter
--- OUTSIDE RECORDS SUMMARY | 2025-04-18 10:24 | XMS_ITS | Encounter Summary ---
Author Organization [facility] Address [address] [place] [address] Care Team Providers Care Family Independence Case Manager Name Role Phone Ryne Bergman MD Primary Care Provider [phone] Abiola Loyola APRN Unavailable [phone] Aarti Maldonado MD Unavailable [phone] Encounter Details Date Type Department Care Team (Late st Contact Info) Description 04/02/2025 Telephone [place] [facility] [address], [address] [place] [address] Aarti Maldonado MD [address] [place] [address] Social History Tobacco Use Types [...] patient to have urine culture at [facility] documented in this encounter Plan of Treatment Upcoming Encounters Date Type Department Care Team (Latest Contact Info) Description 04/27/2025 7:30 AM EDT Hospital Encounter PAV A OPERATING ROOM [address] [place] [address] Aarti Maldonado MD [address] [address] 04/27/2025 7:30 AM EDT - 04/27/2025 9:45 AM EDT Surgery PAV A OPERATING ROOM [address] [place] [address] Aarti Maldonado MD [address] [address] ENUCLEATION, PROSTATE, TRANSURETHRAL, USING HOLMIUM LASER [[id number] (CPT )] Scheduled Orders Name Type Priority [...] documented as of this encounter Care Teams Family Independence Case Manager Relationship Specialty Start Date End Date Ryne Bergman MD [address] [place] [address] PCP - General 04/21/24 Abiola Loyola APRN [address] [address] Nurse Practitioner Urology 10/30/24 Aarti Maldonado MD [address] [facility]00 [place] [address] Surgeon Urology 01/10/25 documented as of this encounter
--- OUTSIDE RECORDS SUMMARY | 2025-04-18 10:24 | XMS_ITS | Encounter Summary ---
Author Organization [facility] Address [address] [place] [address] Care Team Providers Care Customer Support Manager Name Role Phone Ryne Bergman MD Primary Care Provider [phone] Abiola Loyola PAPER PRODUCTS SUPERVISOR Unavailable [phone] Aarti Maldonado MD Unavailable [phone] Encounter Details Date Type Department Care Team ([facility] Contact Info) Description 03/12/2025 Results Follow-Up Medical Office Building Urology [facility] [address] [facility], [address] [place] [address] Aarti Maldonado MD [address] [place] [address] Social History Tobacco Use Types [...] Hospital Encounter PAV A OPERATING ROOM [address] [place] [address] Aarti Maldonado MD [address] [address] 04/27/2025 7:30 AM EDT - 04/27/2025 9:45 AM EDT Surgery PAV A OPERATING ROOM [address] [place] [address] Aarti Maldonado MD [address] [address] ENUCLEATION, PROSTATE, TRANSURETHRAL, USING HOLMIUM LASER [21572 (CPT )] Scheduled Procedures Name Priority Associated [...] as of this encounter Care Teams Customer Support Manager Relationship Specialty Start Date End Date Ryne Bergman MD [address] [place] [address] PCP - General 04/21/24 Abiola Loyola APRN [address] [address] Nurse Practitioner Urology 10/30/24 Aarti Maldonado MD [address] [address] Surgeon Urology 01/10/25 documented as of this encounter
--- OUTSIDE RECORDS SUMMARY | 2025-04-18 10:24 | XMS_ITS | Encounter Summary ---
Author Organization [facility] Address [address] [place] [address] Care Team Providers Care Chemical Packager Name Role Phone Ryne Bergman MD Primary Care Provider [phone] Abiola Loyola TERRAZZO WORKER HELPER Unavailable [phone] Aarti Maldonado MD Unavailable [phone] Reason for Visit * Reason Onset Date Comments 03/09/25 Final Urine culture results 03/12/2025 Encounter Details Date Type Department Care Team (Late st Contact Info) Description 03/12/2025 Telephone [place] [facility] [address] [place] [address] Aarti Maldonado MD [address] [place] [address] 03/09/25 Final Urine culture results [...] Hospital Encounter PAV A OPERATING ROOM [address] [place] [address] Aarti Maldonado MD [address] [address] 04/27/2025 7:30 AM EDT - 04/27/2025 9:45 AM EDT Surgery PAV A OPERATING ROOM [address] [place] [address] Aarti Maldonado MD [address] [address] ENUCLEATION, PROSTATE, TRANSURETHRAL, USING HOLMIUM LASER [[id number] (CPT )] Scheduled Procedures Name Priority Associated [...] documented as of this encounter Care Teams Chemical Packager Relationship Specialty Start Date End Date Ryne Bergman MD [address] [facility] [place] [address] PCP - General 04/21/24 Abiola Loyola APRN [address] [place] [address] Nurse Practitioner Urology 10/30/24 Aarti Maldonado MD [address] [place] [address] Surgeon Urology 01/10/25 documented as of this encounter
--- OUTSIDE RECORDS SUMMARY | 2025-04-18 10:24 | XMS_ITS | Clinical Summary ---
Author Organization [facility] yste Address [address] [place] [address] Care Team Providers Care Device Engineer Name Role Phone Ryne Bergman MD [...] forms for patient assistance program from [employer] for Oz[employer]. Patient will complete and return [...] Department Care Team Description 04/10/2025 Patient Outreach [facility] Sandrita Logan RN 03/24/2025 Refill [facility] [address] [address] Ryne Bergman MD Type 2 diabetes mellitus with hyperglycemia, with long-term current use of insulin 03/13/2025 Patient Outreach [facility] Sandrita Logan RN 03/12/2025 2:15 PM EDT Office Visit [facility] [address] [address] Ryne Bergman MD Medicare annual wellness visit, subsequent (Primary Dx); Annual physical exam; Type 2 diabetes mellitus with hyperglycemia, with long-term current use of insulin 03/12/2025 Travel 03/02/2025 Refill [facility] [address] [address] Ryne Bergman MD 02/12/2025 4:15 PM EDT Office Visit [facility] [address] [address] Ryne Bergman MD Hypotension due to drugs (Primary Dx); Anemia, unspecified type; Restless legs syndrome (RLS) 02/12/2025 Travel 02/08/2025 Refill [facility] [address] [place] [address] Ryne Bergman MD Primary hypertension 02/04/2025 Results Follow-Up [facility] [address] [place] [address] Ryne Bergman MD 01/29/2025 1:32 PM EDT - 01/29/2025 11:59 PM EDT Hospital Encounter [facility] [address] [place] [address] Ryne Bergman MD Encounter for screening for lung cancer; Personal history of nicotine dependence Discharge Disposition: Home or Self Care 01/29/2025 Travel 01/25/2025 Telephone [facility] [address] [place] [address] Ryne Bergman MD FAX 01/18/2025 Telephone [facility] [address] [place] [address] Ryne Bergman MD Prior Authorization ([employer] G7 [...] History Relation Name Comments Alcohol abuse Father [facility] Cancer Father [facility] Lung [facility] bone c ancer Alcohol abuse Mother [facility] Cancer Mother [facility] Lung [facility] bone c ancer Relation Name Status Comments Father [facility] Alive Mother [facility] Alive Social History Tobacco Use Types [...] Description 06/12/2025 3:00 PM EDT Office Visit [facility] [address] [place] [address] Ryne Bergman MD [address] [place] [address] 03/14/2026 2:15 PM EDT Office Visit [facility] [address] [place] [address] Ryne Bergman MD [address] [place] [address] Health Maintenance Due Date Last Done [...] Hemoglobin A1C 8.3(A) 4.5 - 5.7 % [facility] Lot Number [id number] [facility] Expiration Date 11/13/2026 [facility]IAT[facility]IC [facility] Blood 03/12/2025 2:55 PM EDT us Ryne Bergman MD POINT OF CARE TEST ORDER MICHELL Final Result [facility]
[address] [place] [address], * IMAGING SCANNED (03/12/2025) Only the most [...] MD 02/02/2025 10:03 AM EDT Workstation ID: [id number] Narrative 02/02/2025 10:[address] CHEST [...] MD 02/02/2025 10:03 AM EDT Workstation ID: [id number] Ryne Bergman MD IMG CT ORDERABLES Final [...] Insurance [employer] Care Teams Device Engineer Relationship Specialty Start Date End Date Ryne Bergman MD [address] [place] [address] PCP - General Family Medicine 01/08/22
--- OUTSIDE RECORDS SUMMARY | 2025-04-18 10:24 | XMS_ITS | Encounter Summary ---
Author Organization [facility] Address [address] [place] [address] Care Team Providers Care Airline Mechanic Name Role Phone Ryne Bergman MD Primary Care Provider [phone] Abiola Loyola APRN Unavailable [phone] Aarti Maldonado MD Unavailable [phone] Encounter Details Date Type Department Care Team [...] Encounter [facility] [address] [place] [address] Aarti Maldonado MD [address] [facility] [address] [place] [address] 04/27/2025 7:30 AM EDT - 04/27/2025 9:45 AM EDT Surgery [facility] [address] [place] [address] Aarti Maldonado MD [address] [place] [address] ENUCLEATION, PROSTATE, TRANSURETHRAL, USING HOLMIUM LASER [[id number] (CPT )] Scheduled Procedures Name Priority Associated [...] documented as of this encounter Care Teams Airline Mechanic Relationship Specialty Start Date End Date Ryne Bergman MD [address] [place] [address] PCP - General 04/21/24 Abiola Loyola APRN [address] [place] [address] Nurse Practitioner Urology 10/30/24 Aarti Maldonado MD [address] [place] [address] Surgeon Urology 01/10/25 documented as of this encounter
--- OUTSIDE RECORDS SUMMARY | 2025-04-18 10:24 | XMS_ITS | Encounter Summary ---
Author Organization [facility] Address [address] [place] [address] Care Team Providers Care Re Recording Mixer Name Role Phone Ryne Bergman MD Primary Care Provider [phone] Abiola Loyola CAPACITY PLANNING ANALYST Unavailable [phone] Aarti Maldonado MD Unavailable [phone] Encounter Details Date Type Department Care Team (Late st Contact Info) Description 04/16/2025 Telephone [facility] [address], [address] [place] [address] Aarti Maldonado MD [address] [place] [address] Social History Tobacco Use Types [...] Hospital Encounter [facility] [address] [place] [address] Aarti Maldonado MD [address] [address] 04/27/2025 7:30 AM EDT - 04/27/2025 9:45 AM EDT Surgery [facility] [address] [place] [address] Aarti Maldonado MD [address] [address] ENUCLEATION, PROSTATE, TRANSURETHRAL, USING HOLMIUM LASER [39939 (CPT )] Scheduled Procedures Name Priority Associated [...] documented as of this encounter Care Teams Re Recording Mixer Relationship Specialty Start Date End Date Ryne Bergman MD [address] [place] [address] PCP - General 04/21/24 Abiola Loyola APRN [address] [phone] Nurse Practitioner Urology 10/30/24 Aarti Maldonado MD [address] [facility] [address] [place] [address] Surgeon Urology 01/10/25 documented as of this encounter
--- OUTSIDE RECORDS SUMMARY | 2025-04-18 10:24 | XMS_ITS | Clinical Summary ---
Author Organization [facility] Address [address] [place] [address] Care Team Providers Care Boiler Coverer Helper Name Role Phone Ryne Bergman MD Primary Care Provider [phone] Abiola Loyola APRN Unavailable [phone] Aarti Maldonado MD Unavailable [phone] Allergies Active Allergy Reactions Criticality Noted Date [...] Type Department Care Team Description 04/16/2025 Telephone [facility]rology [address], [address] [place] [address] Aarti Maldonado MD 04/02/2025 Telephone [facility] Urology [address], [facility] [place] [address] Aarti Maldonado MD 03/23/2025 Telephone [facility] Urology [address], [address] [place] [address] Aarti Maldonado MD 03/14/2025 2:45 PM EDT Pre-Admission Testing [facility] Pre-op Clinic [address], [facility] [place] [address] Preop examination (Primary Dx) 03/14/2025 Telephone [facility] Urology [address], [address] [place] [address] Aarti Maldonado MD 03/14/2025 Travel 03/12/2025 8:03 AM EDT - 03/12/2025 11:59 PM EDT Hospital Encounter [facility] [address] [place] [address] Benign prostatic hyperplasia with urinary frequency Discharge Disposition: Home or Self Care 03/12/2025 7:40 AM EDT - 03/12/2025 8:02 AM EDT Hospital Encounter [facility] [address] [place] [address] Benign prostatic hyperplasia with urinary frequency Discharge Disposition: Home or Self Care 03/12/2025 Results Follow-Up [facility] Urology [address] [facility], [address] [place] [address] Aarti Maldonado MD 03/12/2025 Telephone [facility] Urology [address], [facility] [place] [address] Aarti Maldonado MD 03/09/25 Final Urine culture results 03/12/2025 Travel 03/09/2025 Orders Only [facility] Urology [address], [address] [place] [address] Aarti Maldonado MD 03/09/2025 Telephone [facility] Urology [address], [address] [place] [address] Aarti Maldonado MD HCN Clinical Concern/Question 03/08/2025 Orders Only [facility] Urology [address], [address] [place] [address] Aarti Maldonado MD Microhematuria (Primary Dx) 03/08/2025 Telephone [facility] Urology [address], [address] [place] [address] Aarti Maldonado MD 03/05/25 Urine culture results from [facility] 02/13/2025 Telephone [facility] Urology [address] [address] Aarti Maldonado MD 02/13/2025 Telephone [facility] Urology [address] [address] Aarti Maldonado MD from Last 3 Months Immunizations Immunization Administration Dates Next Due Hep A, Adult 07/30/2018 Influenza, injectable, quadr ivalent, preservative free 08/24/2023,07/28/2022,08/23/2019,07/30 Pneumococcal 20-edinson Conj Vaccine 11/23/2023 Pneumococcal Polysaccharide PPV23 07/25/2018 Family History Medical History Relation Name Comments Cancer Father Pengilly Cash Hypertension Mother Tawnya Castrejon Kidney disease Mother Tawnya Castrejon Anesthesia problems Neg Hx Malig Hyperthermia Neg Hx Relation Name Status Comments Father Pengilly Ballico Mother Tawnya Castrejon Social History Tobacco Use [...] Encounter [facility] [address] [place] [address] [facility]arti [facility]donado MD [address] [facility] [address] [place] [address] 04/27/2025 7:30 AM EDT - 04/27/2025 9:45 AM EDT Surgery [facility] [address] [place] [address] Aarti Maldonado MD [address] [place] [address] ENUCLEATION, PROSTATE, TRANSURETHRAL, USING HOLMIUM LASER [[id number] (CPT )] Scheduled Procedures Name Priority Associated [...] 2023 [facility]-Diabetes: Hemoglobin A1C 05/22/2024 11/23/2023, 07/28/2022 [id number] Vaccine ( season) 2024 03/07/2021, 02/07/2021 [facility]-Influenza [...] and 800 s/mm2 used to generate calculated t=2653 s/mm2 and ADC map; and an acquired high b =1400 s/mm2; axial 3D dynamic contrast-enhanced [id number] imaging with <10 sec temporal resolution were [...] 50 and 800 s/mm2 used to generatecalculated h=6501 s/mm2 and ADC map; and an acquired high b =1400 s/mm2;axial 3D dynamic contrast-enhanced [id number] imaging with <10 sectemporal resolution were acquired [...] Final Result from Last 3 Months Insurance [facility] MEDICARE Care Teams Boiler Coverer Helper Relationship Specialty Start Date End Date Ryne Bergman MD [address] [place] [address] PCP - General 04/21/24 Abiola Loyola APRN [address] [place] [address] Nurse Practitioner Urology 10/30/24 Aarti Maldonado MD [address] [place] [address] Surgeon Urology 01/10/25
--- OUTSIDE RECORDS SUMMARY | 2025-04-18 10:24 | XMS_ITS | Encounter Summary ---
Author Organization [facility] yste Address [address] [place] [address] Care Team Providers Care Sanding Machine Tender Name Role Phone Ryne Bergman MD Primary Care Provider + Encounter Details Date Type Department Care Team (Late st Contact Info) Description 03/13/2025 Patient Outreach [facility] [address] [place] [address] Social History Tobacco Use Types Packs/Day Years [...] verbalized understanding. Patient states to have 03/10/25 [facility] ED visit regarding chest pain. Patient states to have been treated and discharged. Patient states to have had 03/12/25 PCP and 03/13/25 cardiology appointment and received recommendations. Patient states to be awaiting scheduling of stress test and diabetic education appointment. Note per [facility] referral for nutrition education at [facility]; discussed with patient and patient [...] Patient Has Completed Other Patient Education/Resources 19/04 [facility] Nurse Call Line, [facility] 19/04 Nurse Call Line Education Method Verbal [...] 06/12/2025 3:00 PM EDT Office Visit [facility] [address] [place] [address] Ryne Bergman MD [address] [place] [address] 03/14/2026 2:15 PM EDT Office Visit [facility] [address] [place] [address] Ryne Bergman MD [address] [place] [address] documented as of this encounter Visit Diagnoses Not on filedocumented in this encounter Additional Health Concerns Assessment Noted Time PHQ-2 Depression Total Score: 2 11/23/19 24 10:16 AM EST documented as of this encounter Care Teams Sanding Machine Tender Relationship Specialty Start Date End Date Ryne Bergman MD [address] [place] [address] PCP - General Family Medicine 01/08/22 documented as of this encounter
--- OUTSIDE RECORDS SUMMARY | 2025-04-18 10:24 | XMS_ITS | Encounter Summary ---
Author Organization [facility] yste Address [address] [place] [address] Care Team Providers Care Melt Supervisor Name Role Phone Ryne Bergman MD Primary Care Provider + Reason for Visit * Reason Comments Med Refill Encounter Details Date Type Department Care Team (Late st Contact Info) Description 04/02/2023 Refill [facility] [address] [place] [address] Ryne Bergman MD [address] [place] [address] Type 2 diabetes mellitus with [...] PM EDT Office Visit [facility] [address] [place] [address] Ryne Bermgan MD [address] [place] [address] 03/14/2026 2:15 PM EDT Office Visit [facility] [address] [place] [address] Ryne Bergman MD [address] [place] [address] documented as of this encounter Visit Diagnoses Diagnosis Type 2 diabetes mellitus with hyperglycemia, with long-term current use of insulin documented in this encounter Additional Health Concerns Assessment Noted Time PHQ-2 Depression Total Score: 2 11/12/19 23 12:00 PM EST documented as of this encounter Care Teams Melt Supervisor Relationship Specialty Start Date End Date Ryne Bergman MD [address] [place] [address] PCP - General Family Medicine 01/08/22 documented as of this encounter
--- OUTSIDE RECORDS SUMMARY | 2025-04-18 10:24 | XMS_ITS | Encounter Summary ---
[facility] Address [address] [place] [address] Care Team Providers Care Bag Cutter Name [...] 3:00 PM EDT Office Visit [facility] [address] [place] [address] Ryne Bergman MD [address] [place] [address] 03/14/2026 2:15 PM EDT Office Visit [facility] [address] [place] [address] Ryne Bergman MD [address] [place] [address] documented as of this encounter Visit Diagnoses Not on filedocumented in this encounter Additional Health Concerns Assessment Noted Time PHQ-2 Depression Total Score: 2 11/23/19 24 10:16 AM EST documented as of this encounter Care Teams Bag Cutter Relationship Specialty Start Date End Date Ryne Bergman MD [address] [place] [address] PCP - General Family Medicine 01/08/22 documented as of this encounter
--- OUTSIDE RECORDS SUMMARY | 2025-04-18 10:24 | XMS_ITS | Encounter Summary ---
Author Organization [facility] Address [address] [place] [address] Care Team Providers Care Pilot Boat Deckhand Name Role Phone Ryne Bergman MD Primary Care Provider [phone] Abiola Loyola HOSPITAL PHARMACY DIRECTOR Unavailable [phone] Aarti Maldonado MD Unavailable [phone] Encounter Details Date Type Department Care Team (Late st Contact Info) Description 03/23/2025 Telephone [facility] [address], [address] [place] [address] Aarti Maldonado MD [address] [place] [address] Social History Tobacco Use Types [...] Hospital Encounter [facility] [address] [place] [address] Aarti Maldonado MD [address] [address] 04/27/2025 7:30 AM EDT - 04/27/2025 9:45 AM EDT Surgery [facility] [address] [place] [address] Aarti Maldonado MD [address] [address] ENUCLEATION, PROSTATE, TRANSURETHRAL, USING HOLMIUM LASER [[id number] (CPT )] Scheduled Procedures Name Priority Associated [...] as of this encounter Care Teams Pilot Boat Deckhand Relationship Specialty Start Date End Date Ryne Bergman MD [address] [place] [address] PCP - General 04/21/24 Abiola Loyola APRN [address] [address] Nurse Practitioner Urology 10/30/24 Aarti Maldonado MD [address] [address] Surgeon Urology 01/10/25 documented as of this encounter
--- OUTSIDE RECORDS SUMMARY | 2025-04-18 10:24 | XMS_ITS | Encounter Summary ---
Author Organization [facility] yste Address [address] [place] [address] Care Team Providers Care Maintenance Mechanic Helper Name Role Phone Ryne Bergman MD Primary Care Provider + Reason for Visit * Reason Comments Med Refill Encounter Details Date Type Department Care Team (Late st Contact Info) Description 03/02/[address] [facility] [address] [place] [address] Ryne Bergman MD [address] [place] [address] Social History Tobacco Use Types [...] PM EDT Office Visit [facility] [address] [place] [address] Ryne Bergman MD [address] [place] [address] 03/14/2026 2:15 PM EDT Office Visit [facility] [address] [place] [address] Ryne Bergman MD [address] [place] [address] documented as of this encounter Visit Diagnoses Not on filedocumented in this encounter Additional Health Concerns Assessment Noted Time PHQ-2 Depression Total Score: 2 11/23/19 24 10:16 AM EST documented as of this encounter Care Teams Maintenance Mechanic Helper Relationship Specialty Start Date End Date Ryne Bergman MD [address] [place] [address] PCP - General Family Medicine 01/08/22 documented as of this encounter
--- OUTSIDE RECORDS SUMMARY | 2025-04-18 10:24 | XMS_ITS | Encounter Summary ---
Author Organization [facility] Address [address] [place] [address] Care Team Providers Care Chief Deputy Clerk/Bailiff Name Role Phone Ryne Bergman MD Primary Care Provider [phone] Abiola Loyola APRN Unavailable [phone] Aarti Maldonado MD Unavailable [phone] Encounter Details Date Type Department Care Team [...] Encounter [facility] [address] [place] [address] Aarti Maldonado MD [address] [facility] [address] [place] [address] 04/27/2025 7:30 AM EDT - 04/27/2025 9:45 AM EDT Surgery [facility] [address] [place] [address] Aarti Maldonado MD [address] [phone] ENUCLEATION, PROSTATE, TRANSURETHRAL, USING HOLMIUM LASER [[id number] (CPT )] Scheduled Procedures Name Priority Associated [...] documented as of this encounter Care Teams Chief Deputy Clerk/Bailiff Relationship Specialty Start Date End Date Ryne Bergman MD [address] [place] [address] PCP - General 04/21/24 Abiola Loyola APRN [address] [address] Nurse Practitioner Urology 10/30/24 Aarti Maldonado MD [address] [address] Surgeon Urology 01/10/25 documented as of this encounter
--- OUTSIDE RECORDS SUMMARY | 2025-04-18 10:24 | XMS_ITS | Encounter Summary ---
Author Organization [facility] yste Address [address] [place] [address] Care Team Providers Care Pneumatic Tube Fitter Name Role Phone Ryne Bergman MD Primary Care Provider + Encounter Details Date Type Department Care Team (Late st Contact Info) Description 02/04/2025 Results Follow-Up [facility] [address] [place] [address] Ryen Bergman MD [address] [place] [address] Social History Tobacco Use Types [...] Description 06/12/2025 3:00 PM EDT Office Visit [facility] [address] [place] [address] Ryne Bergman MD [address] [place] [address] 03/14/2026 2:15 PM EDT Office Visit [facility] [address] [place] [address] Ryne Bergman MD [address] [place] [address] documented as of this encounter Visit Diagnoses Not on filedocumented in this encounter Additional Health Concerns Assessment Noted Time PHQ-2 Depression Total Score: 2 11/23/19 24 10:16 AM EST documented as of this encounter Care Teams Pneumatic Tube Fitter Relationship Specialty Start Date End Date Ryne Bergman MD [address] [place] [address] PCP - General Family Medicine 01/08/22 documented as of this encounter
--- OUTSIDE RECORDS SUMMARY | 2025-04-18 10:24 | XMS_ITS ---
[facility] Address [address] [place] [address] Care Team Providers Care Event Planning Manager Name Role Phone Ryne Bergman MD Primary Care Provider + High Risk Care Management Status:Engaged (Active) Start date:03/08/2025 Enrollment date:03/13/2025 Enrollment reason:Identified using claims or encounter data Related social drivers of health:Social Connections, Financial Resource Strain, Stress, Physical Activity, Food Insecurity, Transportation Needs, Housing Stability Overview Esa OLIVAS A1C Case Team Name Relationship Phone Sandrita Kate RN(Responsible Staff) Ambulator y [employer] Workers [phone] Continued Care and Services Coordination
--- NOTE | 2025-04-18 10:30 | MR_ITS ---
APPROVED REPORT Net Development Manager: CLINICAL INDICATION Increased LV wall thickness on TTE, HCM evaluation TECHNIQUE Image Acquisition: Cardiac magnetic resonance (CMR) was performed on Siemens Espree MRI 1.5T scanner. Software platform sequences were performed using the Siemens Diaspora MR B19 platform. A set of three-plane, low-resolution, large [id number] localizers were initially acquired. Then axial, coronal, sagittal TrueFISP, as well as axial HASTE images, were obtained. These were followed by gated TrueFISP breathold cinematic sequences obtained in the short axis with 8 mm slices and 2 mm gaps, 2-chamber (vertical long axis), 3-chamber, 4-chamber (horizontal long axis). A bolus of contrast was injected intravenously with first-pass sequences obtained in the short axis and four-chamber planes. After approximately 10 minutes, a TI street car inspector sequence was performed to determine the optimal TI time. Using the optimized TI time, delayed contrast enhancement segmented inversion???recovery TurboFLASH sequences were obtained in the short axis, 2-chamber, 3-chamber, and 4-chamber projections. 2D-velocity phase mapping was performed. Functional parameters were calculated by offline analysis on an independent workstation ([employer], [place]). Contrast: ProHance??? (Gadoteridol) FINDINGS MORPHOLOGY AND FUNCTION Left ventricle: The left ventricle is normal in size. The indexed left ventricular end-diastolic volume (LVEDVi) is 90 ml/m2 (reference range 57-105 ml/m2 in males, 56-96 ml/m2 in females). Normal left ventricular systolic function is present. There is mildly increased left ventricular wall thickness (maximum 11.5 mm). There are no regional wall motion abnormalities noted. LVEF is calculated at 68.0% (reference range 57-77%). Right ventricle: The right ventricle is normal in size. The indexed right ventricular end-diastolic volume (RVEDVi) is 95 ml/m2 (reference range 61-121 ml/m2 in males, 48-112 ml/m2 in females). Normal right ventricular systolic function is present. RVEF is calculated at 60.7% (reference range 52-72% in males, 51-71% in females). Atria: The left atrium is moderately dilated. The maximum indexed left atrial volume is 44 ml/m2 (reference range 26-52 ml/m2 in males, 27-53 ml/m2 in females). The right atrium is mildly dilated. The maximum indexed right atrial volume is 35 ml/m2 (reference range 18-90 ml/m2). Aorta: The diameter of the aortic annulus is normal, measuring 29 mm (coronal view reference range 21-30 mm in males, 19-27 mm in females). The diameter of the aortic sinus is normal, measuring 35 mm (coronal view reference range 25-42 mm in males, 24-36 mm in females). The diameter of the sinotubular junction is normal, measuring 25 mm (coronal view reference range 18-32 mm in males, 18-28 mm in females). The diameters of the ascending and descending thoracic aorta are normal. Main pulmonary artery: The main pulmonary artery diameter is normal. Pericardium: The pericardial thickness is normal. The pericardial thickness measures 1.5 mm (normal < 4.0 mm). There is no pericardial effusion. VALVES The valvular morphologies in the visualized sequences appear normal. There is no significant valvular stenosis or regurgitation of the mitral, aortic, tricuspid, or pulmonic valve noted visually. Systolic anterior motion of the mitral valve is not visualized. Ratio of pulmonary to systemic flow, Qp:Qs ratio = 1.1 (normal < or = 1.2, hemodynamically significant shunt > 1.5), demonstrating no evidence of hemodynamically significant shunt. TISSUE CHARACTERIZATION Resting Perfusion: Normal myocardial blood flow at rest. No evidence of resting hypoperfusion. Myocardial Fibrosis and/or edema: Normal gadolinium kinetics are present. No evidence of late gadolinium enhancement is noted, consistent with absence of myocardial scarring, infarction, or necrosis. T2-weighted imaging demonstrates no evidence of myocardial edema or inflammation. OTHER Bilateral pulmonary nodules, measuring up to 4-5 in largest dimensions., Correlation with new or recent CT chest is suggested. IMPRESSION Normal LV size with normal LV systolic function. LVEDVi= 90 ml/m2 and LVEF= 68.0%. Mildly increased LV wall thickness (maximum 11.5 mm). Normal RV size with normal RV systolic function. RVEDVi= 95 ml/m2 and RVEF= 60.7%. Biatrial enlargement. No CMR evidence of myocardial scarring, infarction, or necrosis. No evidence of myocardial edema or inflammation. Perfusion analysis demonstrates normal blood flow at rest with no evidence of resting hypoperfusion. Ratio of pulmonary to systemic flow, Qp:Qs ratio = 1.1 (normal < or = 1.2, hemodynamically significant shunt > 1.5), demonstrating no evidence of hemodynamically significant shunt. Bilateral pulmonary nodules, measuring up to 4-5 in largest dimensions., Correlation with new or recent CT chest is suggested. This CMR demonstrates normal biventricular systolic function. There is no evidence of infiltrative or hypertrophic cardiomyopathy. The mild LV wall thickness does not meet CMR criteria for HCM. Follow-up for pulmonary nodule evaluation, as recommended. COMPARISON None CRITICAL RESULT None COMMUNICATION As above The findings of this cardiac MR were reviewed, reported, and signed by Ba Lopes MD (Gauge Checker). Conclusion Electronically signed by : Alejandra Lopes MD 04/25/2025 20:30:29
[2025-04-18] MEDS: 0.9 % SODIUM CHLORIDE 50 ML VIAL 20 ML IV (11:47)
[2025-04-18] MEDS: GADOTERIDOL INJ 20ML SYRINGE 20 ML IV (11:47)
[2025-04-18] MEDS: SODIUM CHLORIDE 0.9% 10ML SYR (RAD ONLY) 10 ML IV (11:47)
[2025-04-18] MEDS: GADOTERIDOL INJ 10ML SYRINGE 3 ML IV (11:47)
== END 2025-04-18 23:59 | disposition home or self-care (01) ==
LOC: RAD 10:20
PROVIDERS: PCP Family Medicine; Visit Provider Physician Assistant
DX: I11.9 Hypertensive heart disease without heart failure (principal); R91.8 Other nonspecific abnormal finding of lung field; I25.10 Atherosclerotic heart disease of native coronary artery without angina pectoris; E11.9 Type 2 diabetes mellitus without complications; Z79.4 Long term (current) use of insulin; R93.1 Abnormal findings on diagnostic imaging of heart and coronary circulation; E78.49 Other hyperlipidemia
CPT/HCPCS: 75561; A9576

== ENCOUNTER 2025-04-25 10:14 | Outpatient (POV) | payer MEDICARE, SELFPAY ==
--- OUTSIDE RECORDS SUMMARY | 2025-03-12 07:40 | XMS_ITS | Encounter Summary ---
Author Organization Healthcare Address [address] [id number] Care Team Providers Care Mottler Operator Name Role Phone Ryne Bergman MD Primary Care Provider [phone] Abiola Loyola APRN Unavailable Aarti Maldonado MD Unavailable [phone] Reason for Referral * Imaging (Routine) - Closed Specialty Diagnoses / Procedures Referred By Kriss colin Referred To Contact Radiology Diagnoses Benign prostatic hyperplasia with urinary frequency Procedures MR Prostate w and wo IV Contrast Aarti Maldonado MD [address] [address] Phone: tel: fax: Referral ID Status Reason Start Date Expiration Date Visits Re quested Visits Authorized [id number] Closed 01/10/2025 07/12/2026 1 1 Reason for Visit * Imaging (Routine) - Closed Specialty Diagnoses / Procedures Referred By Kriss colin Referred To Contact Radiology Diagnoses Benign prostatic hyperplasia with urinary frequency Procedures MR Prostate w and wo IV Contrast Aarti Maldonado MD [address] [address] Phone: tel: fax: Referral ID Status Reason Start Date Expiration Date Visits Re quested Visits Authorized [id number] Closed 01/10/2025 07/12/2026 1 1 Encounter Details Date Type Department Care Team (Latest Contact Info) Description 03/12/2025 7:40 AM EDT - 03/12/2025 8:02 AM EDT Hospital Encounter [facility] [address] [place] [address] Benign prostatic hyperplasia with urinary frequency Discharge [...] Hospital Encounter [facility]ATING RO[facility] [address] [place] [address] Aarti Maldonado MD [address] [address] 04/27/2025 7:30 AM EDT - 04/27/2025 9:45 AM EDT Surgery [facility] [address] [place] [address] Aarti Maldonado MD [address] [address] ENUCLEATION, PROSTATE, TRANSURETHRAL, USING HOLMIUM LASER [[id number] (CPT )] Scheduled Procedures Name Priority Associated [...] and 800 s/mm2 used to generate calculated k=6768 s/mm2 and ADC map; and an acquired high b =1400 s/mm2; axial 3D dynamic contrast-enhanced C6lbijmhzg imaging with <10 sec temporal resolution were [...] 50 and 800 s/mm2 used to generatecalculated h=2649 s/mm2 and ADC map; and an acquired high b =1400 s/mm2;axial 3D dynamic contrast-enhanced R0juceimlx imaging with <10 sectemporal resolution were acquired [...] documented as of this encounter Care Teams Mottler Operator Relationship Specialty Start Date End Date Ryne Bergman MD [address] [place] [address] PCP - General 04/21/24 Abiola Loyola APRN [address] [place] [address] Nurse Practitioner Urology 10/30/24 Aarti Maldonado MD [address] [place] [address] Surgeon Urology 01/10/25 documented as of this encounter
--- OUTSIDE RECORDS SUMMARY | 2025-03-12 08:03 | XMS_ITS | Encounter Summary ---
Author Organization [facility] Address [address] [place] [address] Care Team Providers Care Container Packer Operator Name Role Phone Ryne Bergman MD Primary Care Provider [phone] Abiola Loyola APRN Unavailable [phone] Aarti Maldonado MD Unavailable [phone] Encounter Details Date Type Department Care Team (Latest Contact Info) Description 03/12/2025 8:03 AM EDT - 03/12/2025 11:59 PM EDT Hospital Encounter [facility] Radiology [address] [place] [address] Benign prostatic hyperplasia with urinary frequency Discharge [...] Hospital Encounter [facility]AV A OPERATING ROOM [address] [place] [address] Aarti Maldonado MD [address] [address] 04/27/2025 7:30 AM EDT - 04/27/2025 9:45 AM EDT Surgery [facility] A OPERATING ROOM [address] [place] [address] Aarti Maldonado MD [address] [address] ENUCLEATION, PROSTATE, TRANSURETHRAL, USING HOLMIUM LASER [18070 (CPT )] Scheduled Procedures Name Priority Associated [...] documented as of this encounter Care Teams Container Packer Operator Relationship Specialty Start Date End Date Ryne Bergman MD [address] [place] [address] PCP - General 04/21/24 Abiola Loyola APRN [address] [facility] [address] [place] [address] Nurse Practitioner Urology 10/30/24 Aarti Maldonado MD [address] [place] [address] Surgeon Urology 01/10/25 documented as of this encounter
--- OUTSIDE RECORDS SUMMARY | 2025-03-12 14:15 | XMS_ITS | Encounter Summary ---
Author Organization [facility] yste Address [address] [place] [address] Care Team Providers Care Marketing Sales Representative Name Role Phone Ryne Bergman MD Primary Care Provider + Reason for Referral * Health Education (Routine) - Authorized Specialty Diagnoses / Procedures Referred By Contchristopher t Referred To Contact Dietitian Diagnoses Type 2 diabetes mellitus with hyperglycemia, with long-term current use of insulin Procedures [place] OFFICE/OUTPATIENT NEW MODERATE MDM 45 MINUTES Ryne Bergman MD [address] [facility] [place] [address] Phone: tel: fax: [facility] - OUTPT PHYSICAL THERAPY [address] [place] [address] [place] [address] Phone: tel: fax: Referral ID Status Reason Start Date Expiration Date Visits Requested Visits Authorized [id number] Authorized Specialty Services Required 03/12/2025 06/11/2026 1 1 Scheduling Instructions Refer to Die Finisher Forging at [facility] Reason for Visit * Reason Comments Medicare Wellness-subsequent Pt not sure of all his BP medications Encounter Details Date Type Department Care Team (Late st Contact Info) Description 03/12/2025 2:15 PM EDT Office Visit [facility] [address] [place] [phone] Ryne Bergman [place] [address] Medicare annual wellness visit, subsequent (Primary Dx); Annual physical exam; Type 2 diabetes mellitus with hyperglycemia, with long-term current use of insulin Social History Tobacco Use Types Packs/Day Years [...] Brief Depression Severity Measure Score 8 11/12/2022 Hunger Vital Sign Answer Date Recorded Within the past 12 months, y ou worried that your food would run out before you got the money to buy more. Never true 03/13/20 25 Within the past 12 months, t he food you bought just didn't last and you didn't have money to get more. Never true 03/13/2025 PRAPARE - Transportation Answer Date Re corded In the past 12 months, has l ack of transportation kept you from medical appointments or from getting medications? No 02/25 In the past 12 months, has l ack of transportation kept you from meetings, work, or from getting things needed for daily living? No 03/13/2025 PHQ-2 Answer Date Recorded Patient Health Questionnaire-2 Score 0 03/12/2025 Sex and Gender Information Value Date Recorded Sex Assigned at Male 12/03/2024 7:40 PM EDT Legal Sex Male 9:40 AM EDT Gender Identity Not on file Sexual Orientation Straight 12/03/2024 7: 40 PM EDT documented as of this encounter Last Filed Vital Signs Vital Sign Reading Time Taken Comments Blood Pressure 118/70 03/12/2025 2:19 PM EDT Pulse 83 03/12/2025 2:19 PM EDT Temperature 36.7 C (98 F) 03/12/2025 2:19 PM EDT Respiratory Rate 20 03/12/2025 2:19 PM EDT Oxygen Saturation 96% 03/12/2025 2:19 PM EDT Inhaled Oxygen Concentration - - Weight 105 kg (230 lb 9.6 oz) 03/12/2025 2:19 PM EDT Height 177.8 cm (5' 10 ) 03/12/2025 2:19 PM EDT Body Mass Index 33.09 03/12/2025 2:19 PM EDT documented in this encounter Functional Status documented as of this encounter Progress Notes * Ryne Bergman MD - 03/12/2025 2:15 PM EDTAssociated Problem(s): Type 2 diabetes mellitus with hyperglycemia, with long-term current use of insulin Diabetes control has improved. Patient would benefit from use of GLP-1 agonist and he was given forms for patient assistance program from [employer] for Ozempic. Patient will complete and return tot office for faxing along with prescription for Ozempic. Continue to utilize CGM Orders: POC Glycosylated Hemoglobin (Hb A1C) Ambulatory Referral to Nutrition Services * Ryne Bergman MD - 03/12/2025 2:15 PM EDT Images from the original note were not included. Subjective The ABCs of the Annual Wellness Visit Medicare Wellness Visit Ramsey Castrejon is a 64 y.o. patient who presents for a Medicare Wellness Visit. The following portions of the patient's history were reviewed and updated as appropriate: allergies, current medications, past family history, past medical history, past social history, past surgical history, and problem list. Compared to one year ago, the patient's physical health is worse. Compared to one year ago, the patient's mental health is worse. Recent Hospitalizations: He was admitted within the past 365 days at [facility]. Current Medical Providers: Patient Care Team: Ryne Bergman MD as PCP - General (Family Medicine) Sandrita Kate RN as Ambulatory Supervisor Salvage (Population Health) Outpatient Medications Prior to Visit Medication Sig Dispense Refill albuterol sulfate HFA 108 (90 Base) MCG/ACT inhaler INHALE 1 PUFF BY MOUTH EVERY 6 HOURS aspirin 81 MG EC tablet Take 1 tablet by mouth Daily. Continuous Glucose Sensor (FreeStyle Yuliya 3 Plus Sensor) Use Every 14 (Fourteen) Days. 2 each 11 empagliflozin (Jardiance) 10 MG tablet tablet Take 1 tablet by mouth Daily. 30 tablet 3 finasteride (PROSCAR) 5 MG tablet Take 1 tablet by mouth Daily. FLUoxetine (PROzac) 20 MG capsule Take 1 capsule by mouth Daily. 90 capsule 3 FLUoxetine (PROzac) 40 MG capsule Take 1 capsule by mouth Daily. 90 capsule 3 Insulin Lispro Prot & Lispro (HumaLOG Mix 75/25 KwikPen) (75-25) 100 UNIT/ML suspension pen-injector pen 60 units in a.m, 30 units at noon, 60 units in the evening 50 mL 11 Insulin Pen Needle 32G X 4 MM misc 1 needle three times daily with injectable medication 90 each 11 metFORMIN ER (GLUCOPHAGE-XR) 750 MG 24 hr tablet Take 1 tablet by mouth Daily With Breakfast. 30 tablet 11 NIFEdipine CC (ADALAT CC) 60 MG 24 hr tablet Take 1 tablet by mouth Daily. fastDove Verio test strip USE 1 STRIP TO CHECK GLUCOSE TWICE DAILY DIRECTED 100 each 3 pioglitazone (ACTOS) 45 MG tablet Take 1 tablet by mouth Daily. 30 tablet 11 potassium chloride ER (K-TAB) 20 MEQ tablet controlled-release ER tablet Take 1 tablet by mouth Daily. with food. 90 tablet 11 pramipexole (MIRAPEX) 1 MG tablet Take 1 tablet by mouth Every Night. 30 tablet 11 rosuvastatin (Crestor) 20 MG tablet Take 1 tablet by mouth Daily. 90 tablet 1 tamsulosin (FLOMAX) 0.4 MG capsule 24 hr capsule Take 1 capsule by mouth Daily. Twice daily topiramate (TOPAMAX) 25 MG tablet Take 1 tablet by mouth twice daily 60 tablet 5 valsartan (Diovan) 320 MG tablet Take 1 tablet by mouth Daily. 90 tablet 3 Continuous Glucose Amusement Park Ride Mechanic ([employer] G7 Amusement Park Ride Mechanic) device Use 1 each Daily. 1 each 0 spironolactone (ALDACTONE) 25 MG tablet Take 1 tablet by mouth Daily. hydroCHLOROthiazide 25 MG tablet Take 1 tablet by mouth once daily 30 tablet 0 No facility-administered medications prior to visit. No opioid medication identified on active medication list. I have reviewed chart for other potential high risk medication/s and harmful drug interactions in the elderly. Aspirin is on active medication list. Aspirin use is indicated based on review of current medical condition/s. Pros and cons of this therapy have been discussed today. Benefits of this medication outweigh potential harm. Patient has been encouraged to continue taking this medication. . Patient Active Problem List Diagnosis Type 2 diabetes mellitus with hyperglycemia, with long-term current use of insulin Class 1 obesity due to excess calories with serious comorbidity and body mass index (BMI) of 34.0 to 34.9 in adult Bipolar disorder with moderate depression Primary hypertension BPH with obstruction/lower urinary tract symptoms Advance Care Planning Advance Directive is not on file. ACP discussion was held with the patient during this visit. Patient does not have an advance directive, information provided. Objective Vitals: 03/12/25 1419 BP: 118/70 Pulse: 83 Resp: 20 Temp: 98 ??F (36.7 ??C) SpO2: 96% Weight: 105 kg (230 lb 9.6 oz) Height: 177.8 cm (70 ) PainSc: 3 PainLoc: Hip Estimated body mass index is 33.09 kg/m?? as calculated from the following: Height as of this encounter: 177.8 cm (70 ). Weight as of this encounter: 105 kg (230 lb 9.6 oz). Does the patient have evidence of cognitive impairment? No Lab Results Component Value Date HGBA1C 8.3 (A) 03/12/2025 Health Risk Assessment Smoking Status: Social History Tobacco Use Smoking Status Some Days Current packs/day: 0.00 Average packs/day: 1.5 packs/day for 15.0 years (22.5 ttl pk-yrs) Types: Cigarettes Start date: 05/28/1978 Last attempt to quit: 05/28/1993 Years since quittin.8 Smokeless Tobacco Never Tobacco Comments Started smoking off and on while dealing with my parents deaths Alcohol Consumption: Social History Substance and Sexual Activity Alcohol Use Not Currently Fall Risk Screen DARLENEADI Fall Risk Assessment was completed, and patient is at LOW risk for falls.Assessment completed on:03/12/2025 Depression Screening Little interest or pleasure in doing things? Not at all Feeling down, depressed, or hopeless? Not at all PHQ-2 Total Score 0 Health Habits and Functional and Cognitive Screenin03/12/2025 1:18 PM Functional & Cognitive Status Do you have difficulty preparing food and eating? No Do you have difficulty bathing yourself, getting dressed or grooming yourself? No Do you have difficulty using the toilet? No Do you have difficulty moving around from place to place? No Do you have trouble with steps or getting out of a bed or a chair? No Current Diet Well Balanced Diet Dental Exam Up to date Eye Exam Not up to date Exercise (times per week) 0 times per week Current Exercises Include No Regular Exercise Do you need help using the phone? No Are you deaf or do you have serious difficulty hearing? No Do you need help to go to places out of walking distance? No Do you need help shopping? No Do you need help preparing meals? No Do you need help with housework? No Do you need help with laundry? No Do you need help taking your medications? No Do you need help managing money? No Do you ever drive or ride in a car without wearing a seat belt? No Have you felt unusual stress, anger or loneliness in the last month? No Who do you live with? Spouse If you need help, do you have trouble finding someone available to you? No Have you been bothered in the last four weeks by sexual problems? No Do you have difficulty concentrating, remembering or making decisions? No Age-appropriate Screening Schedule: Refer to the list below for future screening recommendations based on patient's age, sex and/or medical conditions. Orders for these recommended tests are listed in the plan section. The patient has been provided with a written plan. Health Maintenance List Health Maintenance Topic Date Due DIABETIC FOOT EXAM Never done DIABETIC EYE EXAM Never done TDAP/TD VACCINES (1 - Tdap) Never done ZOSTER VACCINE (1 of 2) Never done HEPATITIS C SCREENING Never done AAA SCREEN ONCE Never done COVID-19 Vaccine ( - 2023- season) 2025 (Originally 05/28/2024) INFLUENZA VACCINE 03/27/2025 HEMOGLOBIN A1C 09/11/2025 URINE MICROALBUMIN-CREATININE RATIO (uACR) 01/15/2026 LUNG CANCER SCREENING 01/29/2026 ANNUAL WELLNESS VISIT 03/12/2026 COLORECTAL CANCER SCREENING 04/11/2029 Pneumococcal Vaccine 50+ Completed [facility] Preventative Services Quick Reference Risk Factors Identified During Encounter Immunizations Discussed/Encouraged: Influenza and COVID19 Vision Screening Recommended The above risks/problems have been discussed with the patient. Pertinent information has been shared with the patient in the After Visit Summary. An After Visit Summary and PPPS were made available to the patient. Follow Up: Next Medicare Wellness visit to be scheduled in 1 year. Additional E&M Note during same encounter follows: Patient has additional, significant, and separately identifiable condition(s)/problem(s) that require work above and beyond the Medicare Wellness Visit Chief Complaint Medicare Wellness-subsequent (Pt not sure of all his BP medications ) Subjective HPI Ramsey is also being seen today for an annual adult preventative physical exam. Review of Systems Respiratory: Positive for chest tightness. Cardiovascular: Positive for palpitations. Genitourinary: Positive for difficulty urinating and urgency. All other systems reviewed and are negative. Objective Vital Signs: BP 118/70 Pulse 83 Temp 98 ??F (36.7 ??C) Resp 20 Ht 177.8 cm (70 ) Wt 105 kg (230 lb 9.6oz) SpO2 96% BMI 33.09 kg/m?? Physical Exam Constitutional: General: He is not in acute distress. Appearance: Normal appearance. He is not ill-appearing. HENT: Head: Normocephalic and atraumatic. Right Ear: Tympanic membrane and ear canal normal. Left Ear: Tympanic membrane and ear canal normal. Nose: Nose normal. Mouth/Throat: Mouth: Mucous membranes are moist. Pharynx: Oropharynx is clear. No posterior oropharyngeal erythema. Eyes: Extraocular Movements: Extraocular movements intact. Conjunctiva/sclera: Conjunctivae normal. Pupils: Pupils are equal, round, and reactive to light. Cardiovascular: Rate and Rhythm: Normal rate and regular rhythm. Pulses: Normal pulses. Heart sounds: Normal heart sounds. Pulmonary: Effort: Pulmonary effort is normal. No respiratory distress. Breath sounds: Normal breath sounds. Abdominal: General: Abdomen is flat. Bowel sounds are normal. Palpations: Abdomen is soft. Tenderness: There is no abdominal tenderness. Musculoskeletal: General: Normal range of motion. Cervical back: Normal range of motion and neck supple. Lymphadenopathy: Cervical: No cervical adenopathy. Skin: General: Skin is warm and dry. Capillary Refill: Capillary refill takes less than 2 seconds. Neurological: General: No focal deficit present. Mental Status: He is alert and oriented to person, place, and time. Mental status is at baseline. Cranial Nerves: No cranial nerve deficit. Sensory: No sensory deficit. Motor: No weakness. Psychiatric: Mood and Affect: Mood normal. Behavior: Behavior normal. Thought Content: Thought content normal. Judgment: Judgment normal. The following data was reviewed by: Ryne Bergman MD on 03/12/2025: Most Recent A1C 03/12/2025 14:55 HGBA1C Most Recent Hemoglobin A1C 8.3 A1C Last 3 Results 09/07/2024 11:01 12/04/2024 16:54 03/12/2025 14:55 HGBA1C Last 3 Results Hemoglobin A1C 11.2 C 10.6 8.3 Details C Corrected result Assessment and Plan Additional age appropriate preventative wellness advice topics were discussed during today's preventative wellness exam(some topics already addressed during AWV portion of the note above): Physical Activity: Advised cardiovascular activity 150 minutes per week as tolerated. (example brisk walk for 30 minutes, 5 days a week). Nutrition: Discussed nutrition plan with patient. Information shared in after visit summary. Goal is for a well balanced diet to enhance overall health. Healthy Weight: Discussed current and goal BMI with patient. Steps to attain this goal discussed. Information shared in after visit summary. Motor Vehicle Safety Discussion: Wearing Seatbelt While in Motor Vehicle recommendation. Adhering to posted speed limit recommendation. Injury Prevention Discussion: Information shared in after visit summary. Medicare annual wellness visit, subsequent Annual physical exam Type 2 diabetes mellitus with hyperglycemia, with long-term current use of insulin Diabetes control has improved. Patient would benefit from use of GLP-1 agonist and he was given forms for patient assistance program from [employer] for Ozempic. Patient will complete and return [facility] office for faxing along with prescription for Ozempic. Continue to utilize CGM Orders: POC Glycosylated Hemoglobin (Hb A1C) Ambulatory Referral to Nutrition Services Follow Up No follow-ups on file. Patient was given instructions and counseling regarding his condition or for health maintenance advice. Please see specific information pulled into the AVS if appropriate. documented in this encounter Plan of Treatment Upcoming Encounters Date Type Department Care Team (Late st Contact Info) Description 06/12/2025 3:00 PM EDT Office Visit [facility] [address] [phone] Ryne Bergman MD [address], [place] [address] 03/14/2026 2:15 PM EDT Office Visit [facility] [address] [address] Ryne Bergman MD [address] [address] documented as of this encounter Procedures Procedure Name Priority Date/Time Associated Diagnosis Comments POCT GLYCOSYLATED HEMOGLOBIN (HGB A1C) Routine 03/12/2025 2:55 PM EDT Type 2 diabetes mellitus with hyperglycemia, with long-term current use of insulin documented in this encounter Results * (ABNORMAL) POC Glycosylated Hemoglobin (Hb A1C) (03/12/2025 2:55 PM EDT) Hemoglobin A1C 8.3(A) 4.5 - 5.7 % [facility] Lot Number [id number] [facility] Expiration Date 11/13/2026 [facility] Blood 03/12/2025 2:55 PM EDT us Ryne Bergman MD POINT OF CARE TEST ORDER MICHELL Final Result [facility]
[address] [place] [id number], documented in this encounter Visit Diagnoses Diagnosis Medicare annual wellness visit, subsequent- Primary Annual physical exam Routine general medical examination at a health care facility Type 2 diabetes mellitus with hyperglycemia, with long-term current use of insulin documented in this encounter Additional Health Concerns Assessment Noted Time PHQ-2 Depression Total Score: 2 11/23/19 24 10:16 AM EST documented as of this encounter Care Teams Marketing Sales Representative Relationship Specialty Start Date End Date Ryne Bergman MD [address] [place] [address] PCP - General Family Medicine 01/08/22 documented as of this encounter
--- OUTSIDE RECORDS SUMMARY | 2025-03-14 14:45 | XMS_ITS | Encounter Summary ---
Author Organization Healthcare Address [address] [place] [address] Care Team Providers Care Director Global Name Role Phone Ryne Bergman MD Primary Care Provider [phone] Abiola Loyola APRN Unavailable [phone] Aarti Maldonado MD Unavailable [phone] Encounter Details Date Type Department Care Team (Latest Contact Info) Description 03/14/2025 2:45 PM EDT [facility] Testing [facility] [address], [address] [place] [address] Preop examination (Primary Dx) Social History Tobacco [...] with Aarti Maldonado MD [place] [facility] [place] Medical History[1] Family History[2] Social History[3] [...] CAD, CHF, dysrhythmias, hyperlipidemia, murmur, pacemaker, past [place] or syncope. hypertension (patient reports cardiology is [...] 03-05-25 03/11/25- provided by patient from his [facility] portal Na 137 K 4.2 [address] 25 [...] into the left ventricle possibly representing septal geology scientist branch flow. No significant valvular stenosis or regurgitation In the setting of increased LV wall thickenss with proximal septal thickening of IVSd 1.4 cm, further evaluation with cardiac MRI ( H protocol is suggested. Also, in the setting of suspected septal geology scientist branch flow, futher evaluation with coronary angiography [...] until he gets cardiac clearance. Rl Lancaster, LUMBER PULLER [1] Past Medical History: Diagnosis Date Benign prostatic hyperplasia Diabetes mellitus (CMS/HCC) Hypertension Urinary tract infection 2023 [2] Family History Problem Relation Name Age of Onset Hypertension Mother Tawnya Castrejon Kidney disease Mother Tawnya Castrejon Cancer Father [place] Cash Anesthesia problems Neg Hx Malig Hyperthermia [...] card, photo ID, along with power of advertising columnist, guardianship or advanced directives if applicable Do [...] Hospital Encounter [facility]PERATING RO[address] [place] [address] Aarti Maldonado MD [id number] [place] [address] 04/27/2025 7:30 AM EDT - 04/27/2025 9:45 AM EDT Surgery [address] [address]PER[address] RO[address] [place] [address] Aarti Maldonado MD [address] [place] [address] ENUCLEATION, PROSTATE, TRANSURETHRAL, USING HOLMIUM LASER [07381 (CPT )] Scheduled Procedures Name Priority Associated Diagnoses Date/Ti ny ENUCLEATION, PROSTATE, TRANSURETHRAL, USING HOLMIUM LASER BPH [...] documented as of this encounter Care Teams Director Global Relationship Specialty Start Date End Date Ryne Bergman MD [address] [place] [address] PCP - General 04/21/24 Abiola Loyola APRN [address] [place] [address] Nurse Practitioner Urology 10/30/24 Aarti Maldonado MD [address] [place] [address] Surgeon Urology 01/10/25 documented as of this encounter
--- OUTSIDE RECORDS SUMMARY | 2025-04-25 10:18 | XMS_ITS | Encounter Summary ---
Author Organization Healthcare Address [address] [place] [address] Care Team Providers Care Game Technician Name Role Phone Ryne Bergman MD Primary Care Provider [phone] Abiola Loyola CLINICAL APPEALS REVIEWER Unavailable [phone] Aarti Maldonado MD Unavailable [phone] Encounter Details Date Type Department Care Team (Late st Contact Info) Description 02/10/2024 Orders Only External Location [address] [place] [address] Nicole Bernstein, DO [address] [place] [address] Social History Tobacco Use Types [...] Encounter [facility] ROOM [address] [place] [address] Aarti Maldonado MD [address] [facility] [address] [place] [address] 04/27/2025 7:30 AM EDT - 04/27/2025 9:45 AM EDT Surgery [facility]PERATING ROOM [address] [place] [address] Aarti Maldonado MD [address] [place] [address] ENUCLEATION, PROSTATE, TRANSURETHRAL, USING HOLMIUM LASER [[id number] (CPT )] Scheduled Procedures Name Priority Associated [...] on filedocumented in this encounter Care Teams Game Technician Relationship Specialty Start Date End Date Ryne Bergman MD [address] [place], [place] [id number] PCP - General 04/21/24 Abiola Loyola APRN [address] [place] [address] Nurse Practitioner Urology 10/30/24 Aarti Maldonado MD [address] [place] [address] Surgeon Urology 01/10/25 documented as of this encounter
--- OUTSIDE RECORDS SUMMARY | 2025-04-25 10:18 | XMS_ITS | Encounter Summary ---
Author Organization [facility] Address [address] [place] [address] Care Team Providers Care Reel Cart Operator Name Role Phone Ryne Bergman MD Primary Care Provider [phone] Abiola Loyola APRN Unavailable [phone] Aarti Maldonado MD Unavailable [phone] Encounter Details Date Type Department Care Team (Latest Contact Info) Description 04/20/2025 Travel Social History Tobacco Use Types Packs/Day [...] Encounter [facility] O[facility] ROOM [address] [place] [address] Aarti Maldonado MD [address] [facility] [address] [place] [address] 04/27/2025 7:30 AM EDT - 04/27/2025 9:45 AM EDT Surgery [facility] A OPERATING ROOM [address] [place] [address] Aarti Maldonado MD [address] [phone] ENUCLEATION, PROSTATE, TRANSURETHRAL, USING HOLMIUM LASER [[id number] (CPT )] Scheduled Procedures Name Priority Associated [...] documented as of this encounter Care Teams Reel Cart Operator Relationship Specialty Start Date End Date Ryne Bergman MD [address] [place] [address] PCP - General 04/21/24 Abiola Loyola APRN [address] [address] Nurse Practitioner Urology 10/30/24 Aarti Maldonado MD [address] [address] Surgeon Urology 01/10/25 documented as of this encounter
--- OUTSIDE RECORDS SUMMARY | 2025-04-25 10:18 | XMS_ITS | Encounter Summary ---
Author Organization [facility] Address [address] [place] [address] Care Team Providers Care Mate Chief Name Role Phone Ryne Bergman MD Primary Care Provider [phone] Abiola Loyola APRN Unavailable [phone] Aarti Maldonado MD Unavailable [phone] Reason for Visit * Reason Onset Date Comments 03/05/25 Urine culture results from [facility] 03/08/2025 Encounter Details Date Type Department Care Team (Late st Contact Info) Description 03/08/2025 Telephone [place] [facility] [address] [place] [address] Aarti Maldonado MD [address] [place] [address] 03/05/25 Urine culture results from [facility] Social History Tobacco Use Types [...] EDT 03/05/25 Urine culture results from [facility] and have been uploaded to media. Thank you. documented in this encounter Plan of Treatment Upcoming Encounters Date Type Department Care Team (Latest Contact Info) Description 04/27/2025 7:30 AM EDT Hospital Encounter [facility] A OPERATING ROOM [address] [place] [address] Aarti Maldonado MD [address] [address] 04/27/2025 7:30 AM EDT - 04/27/2025 9:45 AM EDT Surgery P[facility] A OPERATING ROOM [address] [place] [address] Aarti Maldonado MD [address] [address] ENUCLEATION, PROSTATE, TRANSURETHRAL, USING HOLMIUM LASER [02603 (CPT )] Scheduled Procedures Name Priority Associated [...] documented as of this encounter Care Teams Mate Chief Relationship Specialty Start Date End Date Ryne Bergman MD [address] [place] [address] PCP - General 04/21/24 Abiola Loyola APRN [address] [facility] [place] [address] Nurse Practitioner Urology 10/30/24 Aarti Maldonado MD [address] [place] [address] Surgeon Urology 01/10/25 documented as of this encounter
--- OUTSIDE RECORDS SUMMARY | 2025-04-25 10:18 | XMS_ITS | Encounter Summary ---
Author Organization [facility] Address [address] [place] [address] Care Team Providers Care Business Development Professional Name Role Phone Ryne Bergman MD Primary Care Provider + Reason for Visit * Reason Comments Med Refill Encounter Details Date Type Department Care Team (Late st Contact Info) Description 03/24/2025 Refill [facility] [address] [place] [address] Ryne Begrman MD [address] [place] [address] Type 2 diabetes mellitus with [...] Description 06/12/2025 3:00 PM EDT Office Visit [facility] [address] [place] [address] Ryne Bergman MD [address] [place] [address] 03/14/2026 2:15 PM EDT Office Visit [facility] [address] [place] [address] Ryne Bergman MD [address] [place] [address] documented as of this encounter Visit Diagnoses Diagnosis Type 2 diabetes mellitus with hyperglycemia, with long-term current use of insulin documented in this encounter Additional Health Concerns Assessment Noted Time PHQ-2 Depression Total Score: 2 11/23/19 24 10:16 AM EST documented as of this encounter Care Teams Business Development Professional Relationship Specialty Start Date End Date Ryne Bergman MD [address] [place] [address] PCP - General Family Medicine 01/08/22 documented as of this encounter
--- OUTSIDE RECORDS SUMMARY | 2025-04-25 10:18 | XMS_ITS | Encounter Summary ---
Author Organization Healthcare Address [address] [place] [address] Care Team Providers Care Clinical Documentation Consultant Name Role Phone Ryne Bergman MD Primary Care Provider [phone] Abiola Loyola APRN Unavailable [phone] Aarti Maldonado MD Unavailable [phone] Encounter Details Date Type Department Care Team (Late st Contact Info) Description 10/30/2019 Orders Only External Location [address] [place] [address] Provider, External Social History Tobacco Use Types [...] Hospital Encounter [facility]PERATING ROOM [address] [place] [address] Aarti Maldonado MD [address] [address] 04/27/2025 7:30 AM EDT - 04/27/2025 9:45 AM EDT Surgery [facility]PERATING ROOM [address] [place] [address] Aarti Maldonado MD [address] [address] ENUCLEATION, PROSTATE, TRANSURETHRAL, USING HOLMIUM LASER [[id number] (CPT )] Scheduled Procedures Name Priority Associated [...] filedocumented in this encounter Care Teams Clinical Documentation Consultant Relationship Specialty Start Date End Date Ryne Bergman MD [address] [place] [address] PCP - General 04/21/24 Abiola Loyola APRN [address] [place] [address] Nurse Practitioner Urology 10/30/24 Aarti Maldonado MD [address] [place] [address] Surgeon Urology 01/10/25 documented as of this encounter
--- OUTSIDE RECORDS SUMMARY | 2025-04-25 10:18 | XMS_ITS | Encounter Summary ---
Author Organization [facility] Address [address] [place] [address] Care Team Providers Care Doctor Osteopathic Name Role Phone Ryne Bergman MD Primary Care Provider [phone] Abiola Loyola APRN Unavailable [phone] Aarti Maldonado MD Unavailable [phone] Encounter Details Date Type Department Care Team (Late st Contact Info) Description 04/19/2025 Telephone [place] [facility] [address] [place] [address] Aarti Maldonado MD [address] [place] [address] Social History Tobacco Use Types [...] Telephone Encounter - Ziggy Mohrn S - 04/19/2025 9:25 AM EDT Spoke with Lab at [facility] , they are to fax urine culture results documented in this encounter Plan of Treatment Upcoming Encounters Date Type Department Care Team (Latest Contact Info) Description 04/27/2025 7:30 AM EDT Hospital Encounter P[facility] A OPERATING ROOM [address] [place] [address] Aarti Maldonado MD [address] [address] 04/27/2025 7:30 AM EDT - 04/27/2025 9:45 AM EDT Surgery PAV A OPERATING ROOM [address] [place] [address] Aarti Maldonado MD [address] [address] ENUCLEATION, PROSTATE, TRANSURETHRAL, USING HOLMIUM LASER [19552 (CPT )] Scheduled Procedures Name Priority Associated [...] documented as of this encounter Care Teams Doctor Osteopathic Relationship Specialty Start Date End Date Ryne Bergman MD [address] [facility] [place] [address] PCP - General 04/21/24 Abiola Loyola APRN [address] [place] [address] Nurse Practitioner Urology 10/30/24 Aarti Maldonado MD [address] [place] [address] Surgeon Urology 01/10/25 documented as of this encounter
--- OUTSIDE RECORDS SUMMARY | 2025-04-25 10:18 | XMS_ITS | Encounter Summary ---
Author Organization [facility] Address [address] [place] [address] Care Team Providers Care Zigzag Topstitcher Name Role Phone Ryne Bergman MD Primary Care Provider + Encounter Details Date Type Department Care Team (Late st Contact Info) Description 04/10/2025 Patient Outreach [facility], MARZENA [address] [place] [address] Social History Tobacco Use Types Packs/Day Years [...] improved diet. Patient states to have had therapy coordinator referral and received helpful information regarding diet. [...] Description 06/12/2025 3:00 PM EDT Office Visit [facility] [address] [place] [address] Ryne Bergman MD [address] [place] [address] 03/14/2026 2:15 PM EDT Office Visit [facility] [address] [place] [place] [address] Ryne Bergman MD [address] [place] [address] documented as of this encounter Visit Diagnoses Not on filedocumented in this encounter Additional Health Concerns Assessment Noted Time PHQ-2 Depression Total Score: 2 11/23/19 24 10:16 AM EST documented as of this encounter Care Teams Zigzag Topstitcher Relationship Specialty Start Date End Date Pacheco, Ryne Javy, MD [address] [facility] [place] [address] PCP - General Family Medicine 01/08/22 documented as of this encounter
--- OUTSIDE RECORDS SUMMARY | 2025-04-25 10:18 | XMS_ITS | Encounter Summary ---
Author Organization [facility] Address [address] [place] [address] Care Team Providers Care Gutter Installer Name Role Phone Ryne Bergman MD Primary Care Provider [phone] Abiola Loyola FLAP CURER Unavailable [phone] Aarti Maldonado MD Unavailable [phone] Encounter Details Date Type Department Care Team (Late st Contact Info) Description 03/09/2025 Orders Only [place] [facility] [address] [place] [address] Aarti Maldonado MD [address] [place] [address] Social History Tobacco Use Types [...] Hospital Encounter PAV A OPERATING ROOM [address] [place] [address] Aarti Maldonado MD [address] [employer] [address] [address] 04/27/2025 7:30 AM EDT - 04/27/2025 9:45 AM EDT Surgery PAV A OPERATING ROOM [address] [place] [address] Aarti Maldonado MD [address] [employer] [address] [address] ENUCLEATION, PROSTATE, TRANSURETHRAL, USING HOLMIUM LASER [63909 (CPT )] Scheduled Procedures Name Priority Associated [...] documented as of this encounter Care Teams Gutter Installer Relationship Specialty Start Date End Date Ryne Bergman MD [address] [place] [address] PCP - General 04/21/24 Abiola Loyola APRN [address] [place] [address] Nurse Practitioner Urology 10/30/24 Aarti Maldonado MD [address] [place] [address] Surgeon Urology 01/10/25 documented as of this encounter
--- OUTSIDE RECORDS SUMMARY | 2025-04-25 10:18 | XMS_ITS | Encounter Summary ---
Author Organization [facility] Address [address] [place] [address] Care Team Providers Care Cabin Cleaner Name Role Phone Ryne Bergman MD Primary Care Provider [phone] Abiola Loyola TRAVEL SPECIALIST Unavailable [phone] Aarti Maldonado MD Unavailable [phone] Reason for Visit * Reason Onset Date Comments [facility] Clinical Concern/Question 03/09/2025 Encounter Details Date Type Department Care Team (Late st Contact Info) Description 03/09/2025 Telephone [place] [facility] [address], [address] [place] [address] Aarti Maldonado MD [address] [place] [address] [facility] Clinical Concern/Question Social History [...] optimal time of day to reach caller: [phone] Note: Please do not reply to this message. Follow-up communication and further actions as a result of this message need to be communicated with the patient directly, if the patient is not active onMyChart. If the patient is active on MyChart, they will receive notification of the communication/outcome via [employer]. documented in this encounter Plan of Treatment Upcoming Encounters Date Type Department Care Team (Latest Contact Info) Description 04/27/2025 7:30 AM EDT Hospital Encounter PAV A OPERATING ROOM [address] [place] [address] Aarti Maldonado MD [address] [address] 04/27/2025 7:30 AM EDT - 04/27/2025 9:45 AM EDT Surgery PAV A OPERATING ROOM [address] [place] [address] Aarti Maldonado MD [address] [address] ENUCLEATION, PROSTATE, TRANSURETHRAL, USING HOLMIUM LASER [79144 (CPT )] Scheduled Procedures Name Priority Associated [...] documented as of this encounter Care Teams Cabin Cleaner Relationship Specialty Start Date End Date Ryne Bergman MD [address] [place] [address] PCP - General 04/21/24 Abiola Loyola APRN [address] [address] Nurse Practitioner Urology 10/30/24 Aarti Maldonado MD [address] [address] Surgeon Urology 01/10/25 documented as of this encounter
--- OUTSIDE RECORDS SUMMARY | 2025-04-25 10:18 | XMS_ITS | Encounter Summary ---
Author Organization Healthcare Address [address] [place] [address] Care Team Providers Care Director Day Care Center Name Role Phone Ryne Bergman MD Primary Care Provider Abiola Loyola SIDE PULLER Unavailable [phone] Aarti Maldonado MD Unavailable [phone] Encounter Details Date Type Department Care Team (Late st Contact Info) Description 03/08/2025 Orders Only [place] [facility] [address] [place] [address] Aarti Maldonado MD [address] [place] [address] Microhematuria (Primary Dx) Social History [...] Hospital Encounter PAV A OPERATING ROOM [address] [place] [address] Aarti Maldonado MD [address] [address] 04/27/2025 7:30 AM EDT - 04/27/2025 9:45 AM EDT Surgery PAV A OPERATING ROOM [address] [place] [address] Aarti Maldonado MD [address] [address] ENUCLEATION, PROSTATE, TRANSURETHRAL, USING HOLMIUM LASER [[id number] (CPT )] Scheduled Procedures Name Priority Associated [...] as of this encounter Care Teams Director Day Care Center Relationship Specialty Start Date End Date Ryne Bergman MD [address] [place] [address] PCP - General 04/21/24 Abiola Loyola APRN [address] [address] Nurse Practitioner Urology 10/30/24 Aarti Maldonado MD [address] [place] [address] Surgeon Urology 01/10/25 documented as of this encounter
--- OUTSIDE RECORDS SUMMARY | 2025-04-25 10:19 | XMS_ITS | Encounter Summary ---
Author Organization [facility] yste Address [address] [place] [address] Care Team Providers Care Lime Burner Name Role Phone Ryne Bergman MD Primary Care Provider + Reason for Visit * Reason Comments Med Refill Encounter Details Date Type Department Care Team (Late st Contact Info) Description 04/02/2023 Refill [facility] [address] [place] [address] Ryne Bergman MD [address] [place] [address] Type 2 diabetes mellitus with [...] Description 06/12/2025 3:00 PM EDT Office Visit [facility] MED[facility] [address] [place] [address] Ryne Bergman MD [address] [place] [address] 03/14/2026 2:15 PM EDT Office Visit [facility] MED[facility] [address] [place] [address] Ryne Bergman MD [address] [place] [address] documented as of this encounter Visit Diagnoses Diagnosis Type 2 diabetes mellitus with hyperglycemia, with long-term current use of insulin documented in this encounter Additional Health Concerns Assessment Noted Time PHQ-2 Depression Total Score: 2 11/12/19 23 12:00 PM EST documented as of this encounter Care Teams Lime Burner Relationship Specialty Start Date End Date Ryne Bergman MD [address] [place] [address] PCP - General Family Medicine 01/08/22 documented as of this encounter
--- OUTSIDE RECORDS SUMMARY | 2025-04-25 10:19 | XMS_ITS | Encounter Summary ---
Author Organization [facility] Address [address] [place] [address] Care Team Providers Care Refinisher Name Role Phone Ryne Bergman MD Primary Care Provider [phone] Abiola Loyola INSTITUTE SCIENTIST Unavailable [phone] Aarti Maldonado MD Unavailable [phone] Encounter Details Date Type Department Care Team (Late st Contact Info) Description 03/14/2025 Telephone [place] [facility] Urology [address], [address] [place] [address] Aarti Maldonado MD [address] [place] [address] Social History Tobacco Use Types [...] Hospital Encounter [facility] [address] [place] [address] Aarti Maldonado MD [address] [address] 04/27/2025 7:30 AM EDT - 04/27/2025 9:45 AM EDT Surgery [facility] [address] [place] [address] Aarti Maldonado MD [address] [address] ENUCLEATION, PROSTATE, TRANSURETHRAL, USING HOLMIUM LASER [[id number] (CPT )] Scheduled Procedures Name Priority Associated [...] documented as of this encounter Care Teams Refinisher Relationship Specialty Start Date End Date Ryne Bergman MD [address] [place] [address] PCP - General 04/21/24 Abiola Loyola APRN [address] [address] Nurse Practitioner Urology 10/30/24 Aarti Maldonado MD [address] [address] Surgeon Urology 01/10/25 documented as of this encounter
--- OUTSIDE RECORDS SUMMARY | 2025-04-25 10:19 | XMS_ITS | Encounter Summary ---
Author Organization [facility] Address [address] [place] [address] Care Team Providers Care Blower And Compressor Assembler Name Role Phone Ryne Bergman MD Primary Care Provider [phone] Abiola Loyola FIELD MACHINIST Unavailable [phone] Aarti Maldonado MD Unavailable [phone] Encounter Details Date Type Department Care Team (Late st Contact Info) Description 03/23/2025 Telephone [place] [facility] Urology [address], 2[address] [place] [address] Aarti Maldonado MD [address] [place] [address] Social History Tobacco Use Types [...] Hospital Encounter [facility] OPERATING ROOM [address] [place] [address] Aarti Maldonado MD [address] [address] 04/27/2025 7:30 AM EDT - 04/27/2025 9:45 AM EDT Surgery [facility]PERATING RO[facility] [address] [place] [address] Aarti Maldonado MD [address] [address] ENUCLEATION, PROSTATE, TRANSURETHRAL, USING HOLMIUM LASER [[id number] (CPT )] Scheduled Procedures Name Priority Associated [...] documented as of this encounter Care Teams Blower And Compressor Assembler Relationship Specialty Start Date End Date Ryne Bergman MD [address] [place] [address] PCP - General 04/21/24 Abiola Loyola APRN [address] [address] Nurse Practitioner Urology 10/30/24 Aarti Maldonado MD [address] [address] Surgeon Urology 01/10/25 documented as of this encounter
--- OUTSIDE RECORDS SUMMARY | 2025-04-25 10:19 | XMS_ITS | Encounter Summary ---
Author Organization [facility] Address [address] [place] [address] Care Team Providers Care Edi Programmer Analyst Name Role Phone Ryne Bergman MD Primary Care Provider + Encounter Details Date Type Department Care Team (Late st Contact Info) Description 02/04/2025 Results Follow-Up [facility] [address] [place] [address] Ryne Bergman MD [address] [place] [address] Social History Tobacco Use Types [...] Description 06/12/2025 3:00 PM EDT Office Visit [facility] [address] [place] [address] Ryne Bergman MD [address] [place] [address] 03/14/2026 2:15 PM EDT Office Visit [facility] [address] [place] [address] Ryne Bergman MD [address] [place] [address] documented as of this encounter Visit Diagnoses Not on filedocumented in this encounter Additional Health Concerns Assessment Noted Time PHQ-2 Depression Total Score: 2 11/23/19 24 10:16 AM EST documented as of this encounter Care Teams Edi Programmer Analyst Relationship Specialty Start Date End Date Ryne Bergman MD [address] [place] [address] PCP - General Family Medicine 01/08/22 documented as of this encounter
--- OUTSIDE RECORDS SUMMARY | 2025-04-25 10:19 | XMS_ITS | Encounter Summary ---
Author Organization [facility] Address [address] [place] [address] Care Team Providers Care Stock Cutter Name Role Phone Ryne Bergman MD Primary Care Provider [phone] Abiola Loyola APRN Unavailable [phone] Aarti Maldonado MD Unavailable [phone] Encounter Details Date Type Department Care Team (Late st Contact Info) Description 04/02/2025 Telephone [place] [facility] Urology [address], [address] [place] [address] Aarti Maldonado MD [address] [place] [address] Social History Tobacco Use Types [...] encounter Miscellaneous Notes * Telephone Encounter - OnurZiggyshirley Estrella - 04/02/2025 3:29 PM EDT Spoke with patient, scheduled 04/27 surgery, verified address and phone number , mailed surgery info , patient is aware of anesthesia preop screening call and arrival time call prior to surgery, casescheduled with [place], patient to have urine culture at [facility] documented in this encounter Plan of Treatment Upcoming Encounters Date Type Department Care Team (Latest Contact Info) Description 04/27/2025 7:30 AM EDT Hospital Encounter [facility] A OPERATING ROOM [address] [place] [address] Aarti Maldonado MD [address] [address] 04/27/2025 7:30 AM EDT - 04/27/2025 9:45 AM EDT Surgery [facility] RO[facility] [address] [place] [address] Aarti Maldonado MD [address] [address] ENUCLEATION, PROSTATE, TRANSURETHRAL, USING HOLMIUM LASER [[id number] (CPT )] Scheduled Orders Name Type Priority [...] documented as of this encounter Care Teams Stock Cutter Relationship Specialty Start Date End Date Ryne Bergman MD [address] [place] [address] PCP - General 04/21/24 Abiola Loyola APRN [address] [address] Nurse Practitioner Urology 10/30/24 Aarti Maldonado MD [address] [facility] [place] [address] Surgeon Urology 01/10/25 documented as of this encounter
--- OUTSIDE RECORDS SUMMARY | 2025-04-25 10:19 | XMS_ITS | Encounter Summary ---
Author Organization [facility] yste Address [address] [place] [address] Care Team Providers Care Underbaster Name Role Phone Ryne Bergman MD Primary Care Provider + Encounter Details Date Type Department Care Team (Late st Contact Info) Description 03/13/2025 Patient Outreach [facility] [address] [place] [address] Social History Tobacco Use Types Packs/Day Years [...] verbalized understanding. Patient states to have 03/10/25 [facility] ED visit regarding chest pain. Patient states to have been treated and discharged. Patient states to have had 03/12/25 PCP and 03/13/25 cardiology appointment and received recommendations. Patient states to be awaiting scheduling of stress test and diabetic education appointment. Note per [facility] referral for nutrition education at [facility]; discussed with patient and patient voiced intent [...] Patient Has Completed Other Patient Education/Resources 19/04 [facility] Nurse Call Line, [facility] 19/04 Nurse Call Line Education Method [...] Description 06/12/2025 3:00 PM EDT Office Visit [facility] [address] [place] [address] Ryne Bergman MD [address] [place] [address] 03/14/2026 2:15 PM EDT Office Visit [facility] [address] [place] [address] Ryne Bergman MD [address] [place] [address] documented as of this encounter Visit Diagnoses Not on filedocumented in this encounter Additional Health Concerns Assessment Noted Time PHQ-2 Depression Total Score: 2 11/23/19 24 10:16 AM EST documented as of this encounter Care Teams Underbaster Relationship Specialty Start Date End Date Ryne Bergman MD [address] [place] [address] PCP - General Family Medicine 01/08/22 documented as of this encounter
--- OUTSIDE RECORDS SUMMARY | 2025-04-25 10:19 | XMS_ITS | Encounter Summary ---
Author Organization [facility] Address [address] [place] [address] Care Team Providers Care Window Glazier Helper Name Role Phone Ryne Bergman MD Primary Care Provider [phone] Abiola Loyola AVIONICS SHOP SUPERVISOR Unavailable [phone] Aarti Maldonado MD Unavailable [phone] Reason for Visit * Reason Onset Date Comments 03/09/25 Final Urine culture results 03/12/2025 Encounter Details Date Type Department Care Team (Late st Contact Info) Description 03/12/2025 Telephone [place] [facility] U[facility] [address], [address] [place] [address] Aarti Maldonado MD [address] [place] [address] 03/09/25 Final Urine culture results [...] Hospital Encounter [facility] A OPERATING ROOM [address] [place] [address] Aarti Maldonado MD [address] [address] 04/27/2025 7:30 AM EDT - 04/27/2025 9:45 AM EDT Surgery [facility] A OPERATING ROOM [address] [place] [address] Aarti Maldonado MD [address] [address] ENUCLEATION, PROSTATE, TRANSURETHRAL, USING HOLMIUM LASER [[id number] (CPT )] Scheduled Procedures Name Priority Associated [...] documented as of this encounter Care Teams Window Glazier Helper Relationship Specialty Start Date End Date Ryne Bergman MD [address] [facility] [place] [address] PCP - General 04/21/24 Abiola Loyola APRN [address] [place] [address] Nurse Practitioner Urology 10/30/24 Aarti Maldonado MD [address] [place] [address] Surgeon Urology 01/10/25 documented as of this encounter
--- OUTSIDE RECORDS SUMMARY | 2025-04-25 10:19 | XMS_ITS | Encounter Summary ---
Author Organization [facility] yste Address [address] [place] [address] Care Team Providers Care Bricklayer'S Assistant Name Role Phone Ryne Bergman MD Primary Care Provider + Reason for Visit * Reason Comments Med Refill Encounter Details Date Type Department Care Team (Late st Contact Info) Description 03/02/2025 Refill [facility] [address] [place] [address] Ryne Bergman MD [address] [place] [address] Social History Tobacco Use Types [...] Description 06/12/2025 3:00 PM EDT Office Visit [facility] [address] [place] [address] Ryne Bergman MD [address] [place] [address] 03/14/2026 2:15 PM EDT Office Visit [facility] [address] [place] [address] Ryne Bergman MD [address] [place] [address] documented as of this encounter Visit Diagnoses Not on filedocumented in this encounter Additional Health Concerns Assessment Noted Time PHQ-2 Depression Total Score: 2 11/23/19 24 10:16 AM EST documented as of this encounter Care Teams Bricklayer'S Assistant Relationship Specialty Start Date End Date Ryne Bergman MD [address] [place] [address] PCP - General Family Medicine 01/08/22 documented as of this encounter
--- OUTSIDE RECORDS SUMMARY | 2025-04-25 10:19 | XMS_ITS | Encounter Summary ---
Author Organization [facility] Address [address] [place] [address] Care Team Providers Care Clear Coat Sprayer Name Role Phone Ryne Bergman MD Primary Care Provider [phone] Abiola Loyola GUM WORKER Unavailable [phone] Aarti Maldonado MD Unavailable [phone] Encounter Details Date Type Department Care Team ([facility] Contact Info) Description 03/12/2025 Results Follow-Up Medical Office Building Urology [facility] E [facility], [address] [place] [address] Aarti Maldonado MD [address] [place] [address] Social History Tobacco Use Types [...] Hospital Encounter [facility] A OPERATING ROOM [address] [place] [address] Aarti Maldonado MD [address] [address] 04/27/2025 7:30 AM EDT - 04/27/2025 9:45 AM EDT Surgery [facility] A OPERATING ROOM [address] [place] [address] Aarti Maldonado MD [address] [address] ENUCLEATION, PROSTATE, TRANSURETHRAL, USING HOLMIUM LASER [[id number] (CPT )] Scheduled Procedures Name Priority Associated [...] documented as of this encounter Care Teams Clear Coat Sprayer Relationship Specialty Start Date End Date Ryne Bergman MD [address] [place] [address] PCP - General 04/21/24 Abiola Loyola APRN [address] [address] Nurse Practitioner Urology 10/30/24 Aarti Maldonado MD [address] [address] Surgeon Urology 01/10/25 documented as of this encounter
--- OUTSIDE RECORDS SUMMARY | 2025-04-25 10:19 | XMS_ITS | Encounter Summary ---
Author Organization [facility] Address [address] [place] [address] Care Team Providers Care Speech Lang Path Therapist Name Role Phone Ryne Bergman MD Primary Care Provider [phone] Abiola Loyola PREVENTIVE MEDICINE PHYSICIAN Unavailable [phone] Aarti Maldonado MD Unavailable [phone] Encounter Details Date Type Department Care Team (Late st Contact Info) Description 04/16/2025 Telephone [place] [facility] Urology [address] [place] [address] Aarti Maldonado MD [address] [place] [address] Social History Tobacco Use Types [...] Hospital Encounter PAV A OPERATING ROOM [address] [place] [address] Aarti Maldonado MD [address] [address] 04/27/2025 7:30 AM EDT - 04/27/2025 9:45 AM EDT Surgery PAV A OPERATING ROOM [address] [place] [address] Aarti Maldonado MD [address] [address] ENUCLEATION, PROSTATE, TRANSURETHRAL, USING HOLMIUM LASER [[id number] (CPT )] Scheduled Procedures Name Priority Associated [...] documented as of this encounter Care Teams Speech Lang Path Therapist Relationship Specialty Start Date End Date Ryne Bergman MD [address] [place] [address] PCP - General 04/21/24 Abiola Loyola APRN [address] [address] Nurse Practitioner Urology 10/30/24 Aarti Maldonado MD [address] [facility] [address] [place] [address] Surgeon Urology 01/10/25 documented as of this encounter
--- OUTSIDE RECORDS SUMMARY | 2025-04-25 10:19 | XMS_ITS | Encounter Summary ---
Author Organization [facility] Address [address] [place] [address] Care Team Providers Care Body Repairer Name Role Phone Ryne Bergman MD Primary Care Provider [phone] Abiola Loyola APRN Unavailable [phone] Aarti Maldonado MD Unavailable [phone] Encounter Details Date Type Department Care Team [...] Encounter PAV A OPERATING ROOM [address] [place] [address] Aarti Maldonado MD [address] [facility] [address] [place] [address] 04/27/2025 7:30 AM EDT - 04/27/2025 9:45 AM EDT Surgery PAV A OPERATING ROOM [address] [place] [address] Aarti Maldonado MD [address] [address] ENUCLEATION, PROSTATE, TRANSURETHRAL, USING HOLMIUM LASER [[id number] (CPT )] Scheduled Procedures Name Priority Associated [...] documented as of this encounter Care Teams Body Repairer Relationship Specialty Start Date End Date Ryne Bergman MD [address] [place] [address] PCP - General 04/21/24 Abiola Loyola APRN [address] [address] Nurse Practitioner Urology 10/30/24 Aarti Maldonado MD [address] [address] Surgeon Urology 01/10/25 documented as of this encounter
--- OUTSIDE RECORDS SUMMARY | 2025-04-25 10:19 | XMS_ITS | Clinical Summary ---
Author Organization [facility] Address [address] [place] [address] Care Team Providers Care President Ergonomic Consulting Name Role Phone Ryne Bergman MD Primary Care Provider + Allergies Active Allergy Reactions Criticality Noted Date Comments Morphine Hives,Rash Low 01/08/2022 Oxybutynin Palpitations High 10/30/2024 Increase BP Medications potassium chloride ER (K-TAB) 20 MEQ tablet controlled-releas e ER tabletIndications :Primary hypertension Take 1 tablet by mouth Daily. with food. 90 tablet 11 4 Active OneTouch Verio test stripIndications: Type 2 diabetes mellitus with hyperglycemia, with long-term current use of insulin USE 1 STRIP TO CHECK GLUCOSE TWICE DAILY DIRECTED 100 each 3 4 Active pramipexole (MIRAPEX) 1 MG tabletIndications :Restless legs syndrome (RLS) Take 1 tablet by mouth Every Night. 30 tablet 11 4 Active finasteride (PROSCAR) 5 MG tablet Take 1 tablet by mouth Daily. Active albuterol sulfate HFA 108 (90 Base) MCG/ACT inhaler INHALE 1 PUFF BY MOUTH EVERY 6 HOURS 5 Active tamsulosin (FLOMAX) 0.4 MG capsule 24 hr capsule Take 1 capsule by mouth Daily. Twice daily 5 Active FLUoxetine (PROzac) 20 MG capsuleIndication s:Bipolar disorder with moderate depression Take 1 capsule by mouth Daily. 90 capsule 3 5 Active FLUoxetine (PROzac) 40 MG capsuleIndication s:Bipolar disorder with moderate depression Take 1 capsule by mouth Daily. 90 capsule 3 5 Active Insulin Lispro Prot & Lispro (HumaLOG Mix 75/25 KwikPen) (75-25) 100 UNIT/ML suspension pen-injector penIndications:Ty pe 2 diabetes mellitus with hyperglycemia, with long-term current use of insulin 60 units in a.m, 30 units at noon, 60 units in the evening 50 mL 5 Active Insulin Pen Needle 32G X 4 MM miscIndications:T ype 2 diabetes mellitus with hyperglycemia, with long-term current use of insulin 1 needle three times daily with injectable medication 90 each 5 Active metFORMIN ER (GLUCOPHAGE-XR) 750 MG 24 hr tabletIndications :Type 2 diabetes mellitus with hyperglycemia, with long-term current use of insulin Take 1 tablet by mouth Daily With Breakfast. 30 tablet 5 Active pioglitazone (ACTOS) 45 MG tabletIndications :Type 2 diabetes mellitus with hyperglycemia, with long-term current use of insulin Take 1 tablet by mouth Daily. 30 tablet 5 Active valsartan (Diovan) 320 MG tabletIndications :Primary hypertension Take 1 tablet by mouth Daily. 90 tablet 3 5 Active rosuvastatin (Crestor) 20 MG tabletIndications :Type 2 diabetes mellitus with hyperglycemia, with long-term current use of insulin Take 1 tablet by mouth Daily. 90 tablet 1 5 Active aspirin 81 MG EC tabletIndications :TIA (transient ischemic attack) Take 1 tablet by mouth Daily. 5 Active Continuous Glucose Sensor (FreeStyle Yuliya 3 Plus Sensor)Indication s:Type 2 diabetes mellitus with hyperglycemia, with long-term current use of insulin,Type 2 diabetes mellitus with hypoglycemia without coma, with long-term current use of insulin,Long-term insulin use Use Every 14 (Fourteen) Days. 2 each 5 Active NIFEdipine CC (ADALAT CC) 60 MG 24 hr tablet Take 1 tablet by mouth Daily. 5 Active topiramate (TOPAMAX) 25 MG tablet Take 1 tablet by mouth twice daily 60 tablet 5 5 Active empagliflozin (Jardiance) 10 MG tablet tabletIndications :Type 2 diabetes mellitus with hyperglycemia, with long-term current use of insulin Take 1 tablet by mouth once daily 30 tablet 3 5 Active Active Problems Problem Noted Date [...] given forms for patient assistance program from [employer] for Ozempic. Patient will complete and return [...] Department Care Team Description 04/10/2025 Patient Outreach [facility] CASE MANAGEMENT Sandrita Logan RN 03/24/2025 Refill [facility] [address] [address] Ryne Bergman MD Type 2 diabetes mellitus with hyperglycemia, with long-term current use of insulin 03/13/2025 Patient Outreach [facility] CASE MANAGEMENT Sandrita Logan RN 03/12/2025 2:15 PM EDT Office Visit [facility] [address] [address] Ryne Bergman MD Medicare annual wellness visit, subsequent (Primary Dx); Annual physical exam; Type 2 diabetes mellitus with hyperglycemia, with long-term current use of insulin 03/12/2025 Travel 03/02/2025 Refill [facility] [address] [address] Ryne Bergman MD 02/12/2025 4:15 PM EDT Office Visit [facility] [address] [address] Ryne Bergman MD Hypotension due to drugs (Primary Dx); Anemia, unspecified type; Restless legs syndrome (RLS) 02/12/2025 Travel 02/08/2025 Refill [facility] [address] [address] Ryne Bergman MD Primary hypertension 02/04/2025 Results Follow-Up [facility] [address] [address] Ryne Bergman MD 01/29/2025 1:32 PM EDT - 01/29/2025 11:59 PM EDT Hospital Encounter [facility] [address] [address] Ryne Bergman MD Encounter for screening for lung cancer; Personal history of nicotine dependence Discharge Disposition: Home or Self Care 01/29/2025 Travel 01/25/2025 Telephone [facility] [address] [place], [place] [address] Ryne Bergman MD FAX from Last 3 Months Immunizations Immunization Administration Dates Next Due COVID-19 (MODERNA) 1st,2nd,3 rd Dose Monovalent 03/07/2021,02/07/2021 Flu Vaccine Quad PF >36MO 08/23/2019,07/30/2018 Fluzone (or Fluarix & Flulav al for VFC) >6mos 08/24/2023,07/28/2022,08/23/2019,07/30 Hepatitis A 07/30/2018 Pneumococcal Conjugate 20-Va lent (PCV20) 11/23/2023 Pneumococcal Polysaccharide (PPSV23) 07/25/2018 Family History Medical History Relation Name Comments Alcohol abuse Father Pingree Cash Cancer Father Pingree [place] Lung [facility] bone c ancer Alcohol abuse Mother P[place]ree [place] Cancer Mother Pingree [place] Lung [facility] bone c ancer Relation Name Status Comments Father Pingree Cash Alive Mother Pingree Cash Alive Social History Tobacco Use Types [...] CENTER FAM[facility] [address] [place] [place] [address] Ryne Bergman MD [address] [place], [place] [address] 03/14/2026 2:15 PM EDT Office Visit [facility] [address] [place], [place] [address] Ryne Bergman MD [address] [place], [place] [address] Health Maintenance Due Date Last Done [...] Additional history exists HEMOGLOBIN A1C 09/11/2025 03/12/2025, 11/25, 09/07/2024, Additional history exists URINE MICROALBUMIN-CREATININ E RATIO (uACR) 01/15/2026 01/15/2025 LUNG CANCER SCREENING 01/29/2026 01/29/2025 ANNUAL WELLNESS VISIT 03/12/2026 03/12/2025 , 03/12/2025, 11/23/2023, Additional history exists COLONOSCOPY 04/11/2029 04/11/2019 COLORECTAL CANCER SCREENING 04/11/2029 Pneumococcal Vaccine 50+ Completed 11/23/2023, 06/28 Procedures Procedure Name Priority Date/Time Associated Diagnosis Comments SCANNED - LABS 04/13/2025 SCANNED - LABS 04/06/2025 SCANNED - LABS [...] to Health Maintenance Results * LABS SCANNED (04/13/2025) Only the most recent of5 resultswithin the time period is included. Ryne Bergman MD LAB BLOOD ORDERABLES Fin al Result * (ABNORMAL) POC Glycosylated Hemoglobin (Hb A1C) (03/12/2025 2:55 PM EDT) Hemoglobin A1C 8.3(A) 4.5 - 5.7 % [facility] Lot Number [id number] [facility] Expiration Date 11/13/2026 [facility] Blood 03/12/2025 2:55 PM EDT Ryne Bergman MD POINT OF CARE TEST ORDER MICHELL Final Result [facility]
[address] [place] [address], * IMAGING SCANNED (03/12/2025) Only the most [...] MD 02/02/2025 10:03 AM EDT Workstation ID: [id number] Narrative 02/02/2025 10:[address] CHEST [...] MD 02/02/2025 10:03 AM EDT Workstation ID: [id number] Ryne Bergman MD IMG CT ORDERABLES Final [...] Most Recently Relevant to Health Maintenance Insurance [facility] MEDICARE ADVANTAGE HMO Care Teams President [employer] Consult[employer] Relationship Specialty Start Date End Date Ryne Bergman MD [address] [facility] [address] PCP - General Family Medicine 01/08/22
--- OUTSIDE RECORDS SUMMARY | 2025-04-25 10:19 | XMS_ITS | Clinical Summary ---
Author Organization [facility] Address [address] [place] [address] Care Team Providers Care Machine Straw Hat Presser Name Role Phone Ryne Bergman MD Primary Care Provider [phone] Abiola Loyola APRN Unavailable [phone] Aarti Maldonado MD Unavailable [phone] Allergies Active Allergy Reactions Criticality Noted Date [...] Encounters Date Type Department Care Team Description 04/20/2025 Travel 04/19/2025 Telephone [facility] Urology [address], [address] [place] [address] Aarti Maldonado MD 04/16/2025 Telephone [facility] [address], [address] [place] [address] Aarti Maldonado MD 04/02/2025 Telephone [facility] [address], [address] [place] [address] Aarti Maldonado MD 03/23/2025 Telephone [facility] [address], [address] [place] [address] Aarti Maldonado MD 03/14/2025 2:45 PM EDT Pre-Admission Testing [facility] [address], [address] [place] [address] Preop examination (Primary Dx) 03/14/2025 Telephone [facility]rology [address], [address] [place] [address] Aarti Maldonado MD 03/14/2025 Travel 03/12/2025 8:03 AM EDT - 03/12/2025 11:59 PM EDT Hospital Encounter [facility] [address] [place] [address] Benign prostatic hyperplasia with urinary frequency Discharge Disposition: Home or Self Care 03/12/2025 7:40 AM EDT - 03/12/2025 8:02 AM EDT Hospital Encounter [facility] [address] [place] [address] Benign prostatic hyperplasia with urinary frequency Discharge Disposition: Home or Self Care 03/12/2025 Results Follow-Up Medical Office Building Urology [facility], [address] [place] [phone] Aarti Maldonado MD 03/12/2025 Telephone [facility] [address], [address] [place] [phone] Aarti Maldonado MD 03/09/25 Final Urine culture results 03/12/2025 Travel 03/09/2025 Orders Only [facility] [address], [address] [place] [address] Aarti Maldonado MD 03/09/2025 Telephone [facility] [address] [place] [phone] Aarti Maldonado MD [facility] Clinical Concern/Question 03/08/2025 Orders Only [facility] [address] [place] [phone] Aarti Maldonado MD Microhematuria (Primary Dx) 03/08/2025 Telephone [facility] [address] [place] [address] Aarti Maldonado MD 03/05/25 Urine culture results from [facility] 02/13/2025 Telephone [facility] [address] [address] Aarti Maldonado MD 02/13/2025 Telephone [facility] [address] [address] Aarti Maldonado MD from Last 3 Months Immunizations Immunization Administration Dates Next Due Hep A, Adult 07/30/2018 Influenza, injectable, quadr ivalent, preservative free 08/24/2023,07/28/2022,08/23/2019,07/30 Pneumococcal 20-edinson Conj Vaccine 11/23/2023 Pneumococcal Polysaccharide PPV23 07/25/2018 Family History Medical History Relation Name Comments Cancer Father [place] Hypertension Mother Tawnya Castrejon Kidney disease Mother Tawnya Castrejon Anesthesia problems Neg Hx Malig Hyperthermia Neg Hx Relation Name Status Comments Father [place] Mother Tawnya Castrejon Social History Tobacco [...] EDT Hospital Encounter [facility] [address] [place] [address] Aarti Maldonado MD [address] [place] [address] 04/27/2025 7:30 AM EDT - 04/27/2025 9:45 AM EDT Surgery [facility] [address] [place] [address] Aarti Maldonado MD [address] [place] [address] ENUCLEATION, PROSTATE, TRANSURETHRAL, USING HOLMIUM LASER [28378 (CPT )] Scheduled Procedures Name Priority Associated [...] 2023 [facility]-Diabetes: Hemoglobin A1C 05/22/2024 11/23/2023, 07/28/2022 [id number] Vaccine (3 - 2023- season) 2024 03/07/2021, 02/07/2021 [facility]-Influenza Vaccine (#1) 05/28/202508/243, 07/28/2022, 08/23/2019, Additional history exists [facility]-Depression Screening [...] and 800 s/mm2 used to generate calculated g=9863 s/mm2 and ADC map; and an acquired high b =1400 s/mm2; axial 3D dynamic contrast-enhanced [id number] imaging with <10 sec temporal resolution were [...] 50 and 800 s/mm2 used to generatecalculated q=5863 s/mm2 and ADC map; and an acquired high b =1400 s/mm2;axial 3D dynamic contrast-enhanced [id number] imaging with <10 sectemporal resolution were acquired [...] from Last 3 Months Insurance [facility] [employer] Care Teams Machine Straw Hat Presser Relationship Specialty Start Date End Date Ryne Bergman MD [address] [place] [id number] PCP - General 04/21/24 Abiola Loyola APRN [address] [place] [address] Nurse Practitioner Urology 10/30/24 Aarti Maldonado MD [address] [place] [address] Surgeon Urology 01/10/25
--- OUTSIDE RECORDS SUMMARY | 2025-04-25 10:19 | XMS_ITS | Encounter Summary ---
Author Organization [facility] Address [address] [place] [address] Care Team Providers Care Hop Weigher Name Role Phone Ryne Bergman MD Primary Care Provider [phone] Abiola Loyola APRN Unavailable [phone] Aarti Maldonado MD Unavailable [phone] Encounter Details Date Type Department Care Team [...] Encounter [facility] [address] [place] [address] Aarti Maldonado MD [address] [facility] [address] [place] [address] 04/27/2025 7:30 AM EDT - 04/27/2025 9:45 AM EDT Surgery [facility] [address] [place] [address] Aarti Maldonado MD [address] [place] [address] ENUCLEATION, PROSTATE, TRANSURETHRAL, USING HOLMIUM LASER [[id number] (CPT )] Scheduled Procedures Name Priority Associated [...] documented as of this encounter Care Teams Hop Weigher Relationship Specialty Start Date End Date Ryne Bergman MD [address] [place] [id number] PCP - General 04/21/24 Abiola Loyola APRN [address] [place] [phone] Nurse Practitioner Urology 10/30/24 Aarti Maldonado MD [address] [place] [address] Surgeon Urology 01/10/25 documented as of this encounter
--- OUTSIDE RECORDS SUMMARY | 2025-04-25 10:19 | XMS_ITS ---
Author Organization [facility] Address [address] [place] [address] Care Team Providers Care Egg Trayer Name Role Phone Ryne Bergman MD Primary Care Provider + High Risk Care Management Status:Engaged (Active) Start date:03/08/2025 Enrollment date:03/13/2025 Enrollment reason:Identified using claims or encounter data Related social drivers of health:Social Connections, Financial Resource Strain, Stress, Physical Activity, Food Insecurity, Transportation Needs, Housing Stability Overview Esa OLIVAS A1C Case Team Name Relationship Phone Sandrita Kate RN(Responsible Staff) Ambulator y Latin Teacher [phone] Continued Care and Services Coordination
--- OUTSIDE RECORDS SUMMARY | 2025-04-25 10:19 | XMS_ITS | Encounter Summary ---
Author Organization [facility] Address [address] [place] [address] Care Team Providers Care Pack Operator Name Role Phone Ryne Bergman MD [...] 06/12/2025 3:00 PM EDT Office Visit [facility] [address] [place] [phone] Ryne Bergman MD [address] [place] [address] 03/14/2026 2:15 PM EDT Office Visit [facility] [address] [place] [phone] Ryne Bergman MD [address] [place] [address] documented as of this encounter Visit Diagnoses Not on filedocumented in this encounter Additional Health Concerns Assessment Noted Time PHQ-2 Depression Total Score: 2 11/23/19 24 10:16 AM EST documented as of this encounter Care Teams Pack Operator Relationship Specialty Start Date End Date Ryne Bergman MD [address] [place] [address] PCP - General Family Medicine 01/08/22 documented as of this encounter
[2025-04-25 10:22] VITALS: BP 140/71; PULSE 59; RESP 14; O2SAT 99; BMI 33.0
--- NOTE | 2025-04-25 10:34 | EXP.PAIN.SOA ---
[facility] Disclaimer: The information contained in this section may have been updated after the patient was seen, as this information can be updated by other users. Medical History (Updated 04/25/25 @ 10:36 by Nicole Abdalla APRN) Other hyperlipidemia Other forms of dyspnea Abnormal echocardiogram Coronary artery disease Chronic neck and back pain TIA (transient ischemic attack) Urinary tract infection Anxiety and depression Hyperlipidemia Hypertension H/O carpal tunnel syndrome Diabetes mellitus, type 2 Sleep apnea History of chest pain Surgical History H/O discectomy History of cholecystectomy Family History Other Bone cancer Kidney failure Lung cancer Social History Smoking Status: Current every day smoker tobacco type: cigarettes smoking status start date: 2023 quit status: has quit before alcohol intake: never substance use type: denies use current occupational status: other Travel in the last 8 weeks?: None household members: spouse housing: house current occupational exposures/hazards: No caffeine: Yes PM Subjective & Objective Subjective Subjective:: Marshall is a vyiaidps-rntu-pvd male who presents today for follow-up of his bilateral bursa injections on 04/10/2025. Today he does state that it was pretty much immediate that he noticed improvement by that night of the injection that it was already better. He states however that the biggest change was the next day rating at least 90% relief. He states it lasted for a couple of days at that percentage and is now rating it more like 75 to 80% relief. He does rate his pain today a 3 out of 10 and states most of that pain is more related to a pain only along the left side that he has noticed more frequently now that the hips are better. He denies any new injuries or falls. Patient was prescribed compounded cream and methocarbamol at our last visit. He does state however that his bridge crane operator was concerned that the methocarbamol may be aggravating some heart related symptoms he was having so this was discontinued. He does state that he did not get the cream because it was going to be $35. He denies any other changes. His Jay has been reviewed and is appropriate. Review of Systems: General: No recent weight changes, no fever, no sleep disturbances Respiratory: No cough, no shortness of air, no recurring pulmonary infections Cardiovascular/peripheral vascular: No chest pain, no palpitations, no edema, no shortness of breath Gastrointestinal: No new onset incontinence, normal bowel movements reported Genitourinary: No new onset incontinence Musculoskeletal: Left-sided low back pain Psychiatric: [Normal mood/affect] Neurological: [Denies weakness in extremities], [denies balance issues] Pain at rest (0-10 scale): 3 Objective Objective:: Physical Exam: General: Alert and oriented x3, no acute distress, pleasant and cooperative Lungs: Respirations even and unlabored, symmetrical chest expansion Eyes: PERRL Musculoskeletal: Flexion and extension of lumbar [spine] somewhat guarded secondary to pain, [antalgic gait noted] Neurological: Speech clear, no gross sensory deficit Has patient had previous pain injection?: Yes Percent improvement in pain since last injection: 90% Conservative treatment options previously tried: Home exercise plan Length of treatment: Longer than 12 weeks Meds Home Medications and Allergies Home Medications ?Medication ?Instructions ?Recorded ?Confirmed ?Type topiramate 25 mg tablet (Topamax) 25 mg PO BID 10/05/17 04/25/25 History fluoxetine 60 mg tablet 60 mg PO DAILY 03/17/24 04/25/25 History insulin lispro protamine-lispro 0 unit SQ DIRECTED 03/17/24 04/25/25 History 100 unit/mL (75-25) subcutaneous pen pioglitazone 45 mg tablet (Actos) 45 mg PO DAILY 03/17/24 04/25/25 History finasteride 5 mg tablet (Proscar) 5 mg PO DAILY #90 tabs 11/20/24 04/25/25 Rx aspirin 81 mg capsule 81 mg PO DAILY #30 caps 01/11/25 04/25/25 Rx blood sugar diagnostic (OneTouch #10 ea 01/25/25 04/25/25 History Verio test strips) blood-glucose sensor (FreeStyle #1 ea 01/25/25 04/25/25 History Yuliya 3 Plus Sensor device) empagliflozin 10 mg tablet 10 mg PO DAILY 01/25/25 04/25/25 History (Jardiance) pen needle, diabetic 32 gauge x #1,200 ea 01/25/25 04/25/25 History pramipexole 1 mg tablet 1 mg PO HS 01/25/25 04/25/25 History rosuvastatin 20 mg tablet 20 mg PO DAILY 01/25/25 04/25/25 History tamsulosin 0.4 mg capsule 0.4 mg PO BID 01/25/25 04/25/25 History valsartan 320 mg tablet 320 mg PO DAILY 01/25/25 04/25/25 History albuterol sulfate 90 mcg/actuation 1 inh inhalation Q6HP PRN 03/11/25 04/25/25 History aerosol inhaler Shortness Of Breath metformin 750 mg tablet,extended 750 mg PO DAILY 03/11/25 04/25/25 History release 24 hr nifedipine 90 mg tablet,extended 60 mg (0.6667 x 90 mg) PO DAILY 03/11/25 04/25/25 Rx release #30 tabs nitroglycerin 0.4 mg sublingual 0.4 mg sublingual Q5M PRN chest 03/13/25 04/25/25 Rx tablet pain #20 tabs metoprolol succinate 25 mg 25 mg PO DAILY #30 tabs 04/16/25 04/25/25 Rx tablet,extended release 24 hr New Prescriptions to Start Prescriptions: Allergies Allergy/AdvReac Type Severity Reaction Status Date / Time oxybutynin Allergy Severe angioedema Verified 03/28/25 10:44 morphine (MORPHINE) Allergy Unknown Verified 03/28/25 10:44 Assessment and Plan *Assessment and plan (1) Greater trochanteric bursitis of both hips: Status: Acute Category: Medical Code(s): M70.61 - Trochanteric bursitis, right hip; M70.62 - Trochanteric bursitis, left hip (2) Low back pain: Status: Acute Category: Medical Code(s): M54.50 - Low back pain, unspecified Plan I did discuss with the patient that we can evaluate and see whether or not if he would do well with other types of injections however at this time we will wait. I will send in a prescription of lidocaine 5% patches and have him follow back up in 6 weeks for reevaluation of symptoms and plan of care. Patient agrees with this. Patient has been instructed to contact the clinic with any concerns before the next appointment. Dr. Colin has reviewed this note and agrees with this plan of care. This note was dictated using voice recognition software and make contain errors or omissions. All injections are used with Lidocaine, Bupivacaine and dexamethasone. Occasionally urine drug screen is needed to verify patient's compliance with our office pain contract. This is ordered based off specific treatments related to chronic pain with the potential to abuse certain medications.
== END 2025-04-25 23:59 | disposition home or self-care (01) ==
PROVIDERS: PCP Family Medicine; Visit Provider Nurse Practitioner Family
DX: M70.61 Trochanteric bursitis, right hip (principal); M70.62 Trochanteric bursitis, left hip; M54.50 Low back pain, unspecified
CPT/HCPCS: 99212; G0463

== ENCOUNTER 2025-05-25 03:49 | Emergency (ER) | payer MEDICARE, SELFPAY ==
--- OUTSIDE RECORDS SUMMARY | 2025-04-27 05:38 | XMS_ITS | Encounter Summary ---
Author Organization Healthcare Address [address] [place] [address] Care Team Providers Care Contact Centre Supervisor Name Role Phone Ryne Bergman MD Primary Care Provider Abiola Loyola PARK GUARD Unavailable [phone] Aarti Maldonado MD Unavailable [phone] Reason for Visit * Auth/Cert (Routine) Specialty Diagnoses / Procedures Referred By Contac t Referred To Contact Diagnoses BPH (benign prostatic hyperplasia) BPH Procedures NV LASER ENUCLEATION PROSTATE W MORCELLATION ENUCLEATION, PROSTATE, TRANSURETHRAL, USING HOLMIUM LASER Aarti Maldonado MD [address] [address] Phone: tel: fax: [facility] [address] [place] [address] Phone: tel: Referral ID Status Reason Start Date Expiration Date Visits Re quested Visits Authorized [id number] 1 1 Encounter Details Date Type Department Care Team (Latest Contact Info) Description 04/27/2025 5:38 AM EDT - 04/28/2025 3:43 PM EDT Hospital Encounter [facility] [address] [place] [address] Aarti Maldonado MD [address] [phone] BPH (benign prostatic hyperplasia) Discharge [...] Saldivar DO - 04/28/2025 1:33 PM EDT [facility] DC instructions: Diagnosis: Benign prostate hyperplasia with [...] Mutually Develop Transition Plan Flowsheets (Taken 04/28/2025 1342) Discharge Facility/Level of Care Needs: 1-Home or [...] from the original note were not included. [address] Preventing a Surgical Site Infection A risk [...] of infection. ? Controlled body temperature. A useqy-znyb-tmcyjg temperature during or after surgery prevents oxygen [...] and water or with an alcohol-based hand woodworking machine operator before and after caring for you. Don?t [...] away. Last Reviewed Date: 2024 00:00:00 ?? [id number] [employer]. All rights reserved. This information is not intended as a substitute for professional medical care. Always follow your healthcare professional's instructions. * [facility] - Bruce Meredith RN - 04/28/2025 1:50 PM EDT Images from the original note were not included. [address] Laser Prostatectomy You have an enlarged prostate [...] medicines you take. This includes prescription and mgjs-uvn-xcdazty medicines, vitamins, herbs, and other supplements. It [...] flow Last Reviewed Date: 2023 00:00:00 ?? 5470-5316 [employer]. All rights reserved. This information is not intended as a substitute for professional medical care. Always follow your healthcare professional's instructions. * [facility] - Bruce Meredith RN - 04/28/2025 1:49 PM EDT Images from the original note were not included. 10432 Benign Prostatic Hyperplasia The prostate is a [...] Transrectal ultrasound is a procedure where the heat treatment technician inserts a transducer slightly larger than [...] biopsy. Last Reviewed Date: 2024 00:00:00 ?? 9423-0308 [employer]. All rights reserved. This information is not [...] name and Address: Ryne Bergman MD [address] [facility] [address] Referring provider name and address: No referring provider defined for this encounter. Chief Concern, Brief History of Present Illness, and Hospital Course Ramsey Castrejon is a 64 y.o. male with PMH of BPH/LUTS, type 2 diabetes, hypertension and history of urinary retention previously needing CIC who presented to [facility] with BPH for surgical intervention. They were [...] retention previously needing CIC who presented to [facility] with BPH for surgical intervention. They were [...] provided thoughts/feelings acknowledged * Care Plan - Linaet Francis RN - 04/27/2025 5:23 PM EDT [...] Note: Operative Report SURGEON: Aarti Maldonado MD Horticulturalist: DO Jay Gómez MD SURGICAL TEAM: Shop Helper: Robbie Soliz RN Relief Shop Helper: Wayne Cotton RN Relief Scrub: Danni Verde [...] 04/27/2025 10:24 AM Release to patient in [facility] Immediate BASIC METABOLIC PANEL, PLASMA Blood, Venous 04/27/2025 10:24 AM Release to patient in [facility] Immediate SURGICAL PATHOLOGY EXAM Prostate Pre-op [...] with sequential dilators from 20 - 30 [place]. The 28 [place] Storz continuous flow resectoscope sheath was inserted [...] The scope was removed and a 22 [place] 3-way Main catheter was inserted with continuous [...] visit. Results Review {Vanishing Link Review Results :[id number] I have reviewed the latest lab and [...] Kidney disease Mother Tawnya [place] Cancer Father Epping Cash Anesthesia problems Neg Hx Malig Hyperthermia [...] Upcoming Encounters Date Type Department Care Team ([facility] st Contact Info) Description 06/20/2025 12:30 PM EDT Office Visit Medical Office Building Urology [address] [facility], [address] [place] [address] Aarti Maldonado MD [address] [facility] [address] [place] [address] documented as of this encounter [...] 9:42 AM EDT BPH (benign prostatic hyperplasia) NV LASER ENUCLEATION PROSTATE W MORCELLATION 04/27/2025 7:14 [...] LAB HEMATOLOGY METHOD 04/28/2025 5:03 AM EDT [facility] RBC Count 3.88(L) 4.60 - 6.10 10*6/uL LAB HEMATOLOGY METHOD 04/28/2025 5:03 AM EDT [facility] HGB 11.7(L) 13.7 - 17.5 g/dL LAB HEMATOLOGY METHOD 04/28/2025 5:03 AM EDT [facility] HCT 37.4(L) 40.0 - 51.0 % LAB HEMATOLOGY METHOD 04/28/2025 5:03 AM EDT [facility] Platelet Count 135(L) 155 - 369 10*3/uL LAB HEMATOLOGY METHOD 04/28/2025 5:03 AM EDT [facility] MCV 96 79 - 98 fL LAB HEMATOLOGY METHOD 04/28/2025 5:03 AM EDT [facility] MCH 30.2 26.0 - 32.0 pg LAB HEMATOLOGY METHOD 04/28/2025 5:03 AM EDT [facility] MCHC 31.3 30.7 - 35.5 g/dL LAB HEMATOLOGY METHOD 04/28/2025 5:03 AM EDT [facility] RDW 13.1 11.5 - 14.5 % LAB HEMATOLOGY METHOD 04/28/2025 5:03 AM EDT [facility] MPV 10.2 8.8 - 12.5 fL LAB HEMATOLOGY METHOD 04/28/2025 5:03 AM EDT [facility] nRBC 0.0 <=0.0 per 100 WBCs LAB HEMATOLOGY METHOD 04/28/2025 5:03 AM EDT [facility] Blood Venous blood specimen / Unknown Venipuncture / Unknown 04/28/2025 4:46 AM EDT 04/28/2025 4:56 AM EDT us Aarti Maldonado MD LAB BLOOD ORDERABLES Final R esult Performing Organization Address City/[facility]/ZIP Co de Phone Number [facility] [address] [place] [address] * (ABNORMAL) POCT glucose meter (04/27/2025 7:19 [...] Comment 04/27/2025 7:21 PM EDT [facility] [employer] Driver ID Moise Warren 04/27/20 7:21 PM EDT [facility]ALTH[facility]ARE LAB Device ID [id number] 04/27/2025 7:21 PM EDT [facility] Specimen Type POC Capillary 04/27/2025 7:21 PM EDT [facility] Blood Capillary blood specimen / Unknown 04/27/2025 7:19 PM EDT 04/27/2025 7:21 PM EDT us Aarti Maldonado MD LAB POINT OF CARE TE ST DOCKED DEVICE UNSOLICITED RESULTS Final Result Performing Organization Address City/[facility]/ZIP Co de Phone Number [facility] [address] [place] [address] * (ABNORMAL) POCT glucose meter (04/27/2025 5:17 PM EDT) [facility] POCT Glucose 235(H) 74 - 99 [...] Comment 04/27/2025 5:18 PM EDT [facility]ARE [facility] [employer] Driver ID Cara Lopez 5:18 PM EDT [employer] [facility] Device ID [id number] 04/27/2025 5:18 PM EDT [facility]ARE LAB Specimen Type POC Capillary 04/27/2025 5:18 PM EDT [facility] Blood Capillary blood specimen / Unknown 04/27/2025 5:17 PM EDT 04/27/2025 5:18 PM EDT us Aarti Maldonado MD LAB POINT OF CARE TE ST DOCKED DEVICE UNSOLICITED RESULTS Final Result Performing Organization Address City/State/[facility] Co de Phone Number [facility]ARE [facility] [address] [place] [address] * (ABNORMAL) Basic metabolic panel (04/27/2025 2:13 PM EDT) [facility] Glucose, Plasma 220(H) 74 - 99 mg/dL 04/27/2025 3:08 PM EDT [facility] BUN, Plasma 18 8 - 23 mg/dL 04/27/2025 3:08 PM EDT [facility] Creatinine, Plasma 0.84 0.70 - 1.20 mg/dL 04/27/2025 3:08 PM EDT [facility] BUN/Creatinine Ratio 21 04/27/2025 3:08 PM EDT [facility] Sodium, Plasma 139 136 - 145 mmol/L 04/27/2025 3:08 PM EDT [facility] Potassium, Plasma 4.0 3.6 - 4.9 mmol/L 04/27/2025 3:08 PM EDT [facility] Chloride, Plasma 105 97 - 107 mmol/L 04/27/2025 3:08 PM EDT [facility] CO2, Plasma 22 22 - 29 mmol/L 04/27/2025 3:08 PM EDT [facility] Anion Gap 12 6 - 16 mmol/L 04/27/2025 3:08 PM EDT [facility] Total Calcium, Plasma 8.7(L) 8.9 - 10.2 mg/dL 04/27/2025 3:08 PM EDT [facility] eGFRcr 96.2 mL/min/1.7 3m*2 04/27/2025 3:08 PM EDT [facility] Comment:Reported eGFRcr in m L/min/1.73m2 is based the CKD-EPI 2020 equation that does not use a race coefficient. Blood Venous blood specimen / Unknown Venipuncture / Unknown 04/27/2025 2:13 PM EDT 04/27/2025 2:39 PM EDT us Aarti Maldonado MD LAB BLOOD ORDERABLES Final R esult [facility] [address] [place] [address] * (ABNORMAL) CBC W/O Differential (04/27/2025 2:13 PM EDT) WBC Count 8.39 3.70 - 10.30 10*3/uL LAB HEMATOLOGY METHOD 04/27/2025 2:47 PM EDT [facility] RBC Count 3.93(L) 4.60 - 6.10 10*6/uL LAB HEMATOLOGY METHOD 04/27/2025 2:47 PM EDT [facility] HGB 12.1(L) 13.7 - 17.5 g/dL LAB HEMATOLOGY METHOD 04/27/2025 2:47 PM EDT [facility] HCT 37.2(L) 40.0 - 51.0 % LAB HEMATOLOGY METHOD 04/27/2025 2:47 PM EDT [facility] Platelet Count 185 155 - 369 10*3/uL LAB HEMATOLOGY METHOD 04/27/2025 2:47 PM EDT [facility] MCV 95 79 - 98 fL LAB HEMATOLOGY METHOD 04/27/2025 2:47 PM EDT [facility] MCH 30.8 26.0 - 32.0 pg LAB HEMATOLOGY METHOD 04/27/2025 2:47 PM EDT [facility] MCHC 32.5 30.7 - 35.5 g/dL LAB HEMATOLOGY METHOD 04/27/2025 2:47 PM EDT [facility] RDW 13.0 11.5 - 14.5 % LAB HEMATOLOGY METHOD 04/27/2025 2:47 PM EDT [facility] MPV 10.0 8.8 - 12.5 fL LAB HEMATOLOGY METHOD 04/27/2025 2:47 PM EDT [facility] nRBC 0.0 <=0.0 per 100 WBCs LAB HEMATOLOGY METHOD 04/27/2025 2:47 PM EDT [facility] Blood Venous blood specimen / Unknown Venipuncture / Unknown 04/27/2025 2:13 PM EDT 04/27/2025 2:39 PM EDT us Aarti Maldonado MD LAB BLOOD ORDERABLES Final R esult [facility] [address] [place] [address] * (ABNORMAL) POCT glucose meter (04/27/2025 10:07 AM EDT) [facility] POCT Glucose 159(H) 74 - 99 [...] Comment 04/27/2025 10:09 AM EDT [facility] [employer] Driver ID Pan Wilkins 025 10:09 AM EDT [facility] LAB Device ID [id number] 04/27/2025 10:09 AM EDT [facility] Specimen Type POC Capillary 04/27/2025 10:09 AM EDT [facility] Blood Capillary blood specimen / Unknown 04/27/2025 10:07 AM EDT 04/27/2025 10:09 AM EDT us Aarti Maldonado MD LAB POINT OF CARE TE ST DOCKED DEVICE UNSOLICITED RESULTS Final Result [facility] [address] [place] [address] * Surgical Pathology Exam (04/27/2025 9:42 AM EDT) Case Report Surgical Pathology Case: [id number] Authorizing Provider: Aarti Maldonado MD Collected: 04/27/2025 0942 Ordering Location: [facility] A OPERATING ROOM Received: 04/27/2025 1010 Pathologist: Kary Bruce MD Specimen: Prostate, morcellated prostate 04/30/2025 10:26 AM EDT [facility] Final Diagnosis A. MORCELLATED PROSTATE, TRANSURETHRAL ENUCLEATION: - BENIGN NODULAR GLANDULAR AND STROMAL HYPERPLASIA. 04/30/2025 10:26 AM EDT [facility] at 1026 EDT Clinical Information BPH 04/30/2025 10:26 AM EDT [facility] Gross Description A. MORCELLATED PROSTATE Received in formalin labeled morcellated prostate , is an aggregate of pink-lobo to lobo-white soft tissue fragments weighing 32.0 g and measuring 5.8 x 5.5 x 2.6 cm. Bacon Skinner sections are submitted in cassettes A1 to A12. Cold Time: 28m [place] 04/30/2025 10:26 AM EDT [facility] Tissue Prostate / Unknown 9:42 AM EDT 04/27/2025 10:10 AM EDT Comment:Pre-op diagnosis: BPH us Aarti Maldonado MD LAB PATHOLOGY ORDERABLES Fin al Result Performing Organization Address City/[facility]/ZIP Co de Phone Number [facility] [address] [place] [address] * (ABNORMAL) POCT glucose meter (04/27/2025 6:47 [...] Comment 04/27/2025 6:49 AM EDT [facility]ARE LAB [employer] Driver ID Angeli Darden 025 6:49 AM EDT [employer] [facility] Device ID [id number] 04/27/2025 6:49 AM EDT [facility]ALTH[facility]ARE LAB Specimen Type POC Venous 04/27/2025 6:49 AM EDT [employer] [facility] Blood Venous blood specimen / Unknown 04/27/2025 6:47 AM EDT 04/27/2025 6:49 AM EDT us Aarti Maldonado MD LAB POINT OF CARE TE ST DOCKED DEVICE UNSOLICITED RESULTS Final Result Performing Organization Address City/State/[facility] Co de Phone Number [facility] [address] [place] [address] documented in this encounter Visit Diagnoses Diagnosis [...] Comment: 200 per dexcom)1242 (Given - Provider: Luyc Jacobo RN)1730 (Canceled Entry - Provider: Automatic [...] of 10 1018 (Given - Provider: Dianna Nazraio RN)1024 (Given - Provider: Dianna Nazario RN) fentaNYL (Sublimaze) injection 25 mcg (COMPLETED) [...] documented as of this encounter Care Teams Contact Centre Supervisor Relationship Specialty Start Date End Date Ryne Bergman MD [address] [place] [address] PCP - General 04/21/24 Abiola Loyola APRN [address] [phone] Nurse Practitioner Urology 10/30/24 Aarti Maldonado MD [address] [facility] [place] [phone] Surgeon Urology 01/10/25 documented as of this encounter
--- OUTSIDE RECORDS SUMMARY | 2025-04-27 07:29 | XMS_ITS | Encounter Summary ---
Author Organization Healthcare Address [address] [place] [address] Care Team Providers Care Client Support Manager Name Role Phone Ryne Bergman MD Primary Care Provider [phone] Abiola Loyola SENIOR CORPORATE STRATEGY MANAGER Unavailable [phone] Aarti Maldonado MD Unavailable [phone] Reason for Visit * Auth/Cert (Routine) Specialty Diagnoses / Procedures Referred By Contac t Referred To Contact Diagnoses BPH (benign prostatic hyperplasia) BPH Procedures [place] LASER ENUCLEATION PROSTATE W MORCELLATION ENUCLEATION, PROSTATE, TRANSURETHRAL, USING HOLMIUM LASER Aarti Maldonado MD [address] [facility] [address] [place] [address] Phone: tel: fax: [facility] [address] [place] [address] Phone: tel: Referral ID Status Reason Start Date Expiration Date Visits Re quested Visits Authorized [id number] 1 1 Encounter Details Date Type Department Care Team (Late st Contact Info) Description 04/27/2025 7:29 AM EDT Anesthesia Event [facility] [address] [place] [address] Lavon Jimenes MD [address] [place] [address] Anesthesia Record Procedure Summary Procedure [...] place once arrived to PACU. Report to COMMERCIAL DOOR INSTALLER and care accepted. Vital signs stable. No [...] and Staff Patient location during procedure: OR BINDING STITCHER: Chelly Machuca CRNA Other anesthesia staff: Philippe [...] Jimenes MD - 04/27/2025 7:06 AM EDT BINDING STITCHER: Chelly Machuca CRNA Student Nurse Aircraft Stress Analyst: Philippe Connelly Patient: Ramsey Castrejon is a 64 y.o. male with body mass index is 34.7 kg/m??. who presents with No PrincipalProblem: There is no principal problem currently on the Problem List. Please update the Problem List and refresh., now for ENUCLEATION, PROSTATE, TRANSURETHRAL, USING HOLMIUM LASER (N/A) Procedure Information Date/Time: 04/27/25729 Procedure: ENUCLEATION, PROSTATE, TRANSURETHRAL, USING HOLMIUM LASER Location: [facility] June / ENDER OR Surgeons: Aarti Maldonado [...] ABG No results found for: PHART , SHZ6YGY , PO2ART , SO2ART , BEART , QHJ5LAL , HCTART , SODIUMART , POTASSIUMART , POCTCL , POCGLU , IONCALART , LACTATE Lab Results Component Value Date PH 5.5 01/10/2025 ECHO No echocardiogram results found for the past 12 months PFTs No results found for: IKG1VBR , NAR2UWGD , XMU5ZBT , FVCPRED BP Readings from Last 5 Encounters: 04/27/25 122/62 03/14/25 115/61 01/10/25 139/66 10/30/24 (!) 162/80 Physical Exam Airway Mallampati: III Cardiovascular Rhythm: regular Rate: normal Dental Comments: Loose teeth and missing Pulmonary Breath sounds clear to auscultation Neurological Oriented: normal to time, normal to place and normal to person Skin Musculoskeletal Extremities Anesthesia Plan ASA 3 Plan was reviewed with: BINDING STITCHER Anesthesia technique(s) discussed with the patient/family: general [...] Urology [address], [address] [place] [address] Aarti Maldonado MD [address] [place] [address] documented as of this encounter Procedures Procedure Name Priority Date/Time Associated Diagnosis Comments ANESTHESIA PERIPHERAL IV PLACEMENT Routine 04/27/2025 7:40 AM EDT PB ANESTHESIA PLACEHOLDER Routine 04/27/2025 7:36 AM EDT AZ AN ELECTIVE ENDOTRACHEAL AIRWAY Routine 04/27/2025 7:36 [...] Machuca CRNA ANESTHESIA ORDERABLES Final Result * AZ AN ELECTIVE ENDOTRACHEAL AIRWAY, PB ANESTHESIA PLACEHOLDER (04/27/2025 7:36 AM EDT) Narrative Chelly Machuca CRNA - 04/27/2025 7:36 AM EDT Chelly Machuca CRNA 04/27/2025 8:04 AM Airway Date/Time: 04/27/2025 7:36 AM Reason: elective Airway not difficult General Information and Staff Patient location during procedure: OR BINDING STITCHER: Chelly Machuca CRNA Other anesthesia staff: Philippe [...] documented as of this encounter Care Teams Client Support Manager Relationship Specialty Start Date End Date Ryne Bergman MD [address] [place] [address] PCP - General 04/21/24 Abiola Loyola APRN [address] [facility] [place] [address] Nurse Practitioner Urology 10/30/24 Aarti Maldonado MD [address] [facility] [place] [id number] Surgeon Urology 01/10/25 documented as of this encounter
--- OUTSIDE RECORDS SUMMARY | 2025-04-27 07:30 | XMS_ITS | Encounter Summary ---
Author Organization [facility] Address [address] [place] [address] Care Team Providers Care Bleach Range Operator Name Role Phone Ryne Bergman MD Primary Care Provider [phone] Abiola Loyola APRN Unavailable [phone] Aarti Maldonado MD Unavailable [phone] Reason for Visit * Auth/Cert (Routine) Specialty Diagnoses / Procedures Referred By Contac t Referred To Contact Diagnoses BPH (benign prostatic hyperplasia) BPH Procedures OK LASER ENUCLEATION PROSTATE W MORCELLATION ENUCLEATION, PROSTATE, TRANSURETHRAL, USING HOLMIUM LASER Aarti Maldonado MD [address] [address] Phone: tel: fax: [facility] [address] [place] [address] Phone: tel: Referral ID Status Reason Start Date Expiration Date Visits Re quested Visits Authorized [id number] 1 1 Encounter Details Date Type Department Care Team (Late st Contact Info) Description 04/27/2025 7:30 AM EDT - 04/27/2025 9:45 AM EDT Surgery [facility] [address] [place] [address] Aarti Maldonado MD [address] [address] ENUCLEATION, PROSTATE, TRANSURETHRAL, USING HOLMIUM LASER [74484 (CPT )] Surgery Details Date/Time Status Location [...] Saldivar DO - 04/28/2025 1:33 PM EDT [facility] DC instructions: Diagnosis: Benign prostate hyperplasia [...] Mutually Develop Transition Plan Flowsheets (Taken 04/28/2025 2197) Discharge Facility/Level of Care Needs: 1-Home or [...] and Optimize Oral Intake Flowsheets (Taken 04/28/2025 0634) Oral Nutrition Promotion: physical activity promoted Nutrition Interventions: food preferences provided Problem: Urinary Diversion Goal: Effective Urinary Elimination Intervention: Promote Optimal Urine Output Flowsheets (Taken 04/28/2025 8148) Urine Elimination Promotion (Post-Diversion): catheter patency maintained Note: CBI throughout morning. Problem: Fall Injury Risk Goal: Absence of Fall and Fall-Related Injury Intervention: Promote Injury-Free Environment Flowsheets (Taken 04/28/2025 7847) Safety Promotion/Fall Prevention: activity supervised assistive device/personal items within reach clutter-free environment maintained fall prevention program maintained * Bruce Aquino RN - 04/28/2025 1:50 PM EDT Images from the original note were not included. 59936 Preventing a Surgical Site Infection A risk [...] of infection. ? Controlled body temperature. A vlaog-vcjl-yqnzai temperature during or after surgery prevents oxygen [...] and water or with an alcohol-based hand funeral director's assistant before and after caring for you. Don?t [...] away. Last Reviewed Date: 2024 00:00:00 ?? 6030-1234 [employer]. All rights reserved. This information is not intended as a substitute for professional medical care. Always follow your healthcare professional's instructions. * Sangita Pyle - Bruce Meredith RN - 04/28/2025 1:50 PM EDT Images from the original note were not included. 02702 Laser Prostatectomy You have an enlarged prostate [...] medicines you take. This includes prescription and hoah-dzt-jtqoblp medicines, vitamins, herbs, and other supplements. It [...] flow Last Reviewed Date: 2023 00:00:00 ?? 4169-0521 [employer]. All rights reserved. This information is not intended as a substitute for professional medical care. Always follow your healthcare professional's instructions. * Sangita Pyle - Bruce Meredith RN - 04/28/2025 1:49 PM EDT Images from the original note were not included. 57797 Benign Prostatic Hyperplasia The prostate is a [...] Transrectal ultrasound is a procedure where the survey cad technician inserts a transducer slightly larger than [...] biopsy. Last Reviewed Date: 2024 00:00:00 ?? 1325-7718 [employer]. All rights reserved. This information is not [...] Address: Ryne Bergman MD [address] [facility] [address] Referring provider name and address: No referring provider defined for this encounter. Chief Concern, Brief History of Present Illness, and Hospital Course Ramsey Castrejon is a 64 y.o. male with PMH of BPH/LUTS, type 2 diabetes, hypertension and history of urinary retention previously needing CIC who presented to [facility] with BPH for surgical intervention. [...] retention previously needing CIC who presented to [facility] with BPH for surgical intervention. [...] Note: Operative Report SURGEON: Aarti Maldonado MD Welfare Manager: DO Jay Gómez MD SURGICAL TEAM: Pmo Consultant: Robbie Soliz RN Relief Pmo Consultant: Wayne Cotton RN Relief Scrub: Danni Verde [...] with sequential dilators from 20 - 30 Prydeinig. The 28 Prydeinig Storz continuous flow resectoscope sheath was inserted [...] The scope was removed and a 22 Prydeinig 3-way Main catheter was inserted with continuous [...] visit. Results Review {Vanishing Link Review Results :[id number] I have reviewed the latest lab and imaging results. === 02/10/24 === CT OUTSIDE IMAGES UCX 04/19/25: NGTD Lab Results Component Value Date CREATININE 0.84 01/10/2025 Assessment & Plan To OR today for holmium laser enucleation of the prostate and all other indicated procedures Preop cefazolin Jya Dyer MD Department of Urology PGY4 [1] [...] Name Age of Onset Hypertension Mother Tawnya [place] Kidney disease Mother Tawnya Cash Cancer Father Lipan [place] Anesthesia problems Neg Hx Malig Hyperthermia Neg [...] Upcoming Encounters Date Type Department Care Team ([facility] Contact Info) Description 06/20/2025 12:30 PM EDT Office Visit Medical Office Building Urology [address] [facility], [address] [place] [address] Aarti Maldonado MD [address] [facility] [address] [place] [address] documented as of this encounter [...] 9:42 AM EDT BPH (benign prostatic hyperplasia) OK LASER ENUCLEATION PROSTATE W MORCELLATION 04/27/2025 7:14 [...] LAB HEMATOLOGY METHOD 04/28/2025 5:03 AM EDT [facility] RBC Count 3.88(L) 4.60 - 6.10 10*6/uL LAB HEMATOLOGY METHOD 04/28/2025 5:03 AM EDT [facility] HGB 11.7(L) 13.7 - 17.5 g/dL LAB HEMATOLOGY METHOD 04/28/2025 5:03 AM EDT [facility] HCT 37.4(L) 40.0 - 51.0 % LAB HEMATOLOGY METHOD 04/28/2025 5:03 AM EDT [facility] Platelet Count 135(L) 155 - 369 10*3/uL LAB HEMATOLOGY METHOD 04/28/2025 5:03 AM EDT [facility] MCV 96 79 - 98 fL LAB HEMATOLOGY METHOD 04/28/2025 5:03 AM EDT [facility] MCH 30.2 26.0 - 32.0 pg LAB HEMATOLOGY METHOD 04/28/2025 5:03 AM EDT [facility] MCHC 31.3 30.7 - 35.5 g/dL LAB HEMATOLOGY METHOD 04/28/2025 5:03 AM EDT [facility] RDW 13.1 11.5 - 14.5 % LAB HEMATOLOGY METHOD 04/28/2025 5:03 AM EDT [facility] MPV 10.2 8.8 - 12.5 fL LAB HEMATOLOGY METHOD 04/28/2025 5:03 AM EDT [facility] nRBC 0.0 <=0.0 per 100 WBCs LAB HEMATOLOGY METHOD 04/28/2025 5:03 AM EDT [facility] Blood Venous blood specimen / Unknown Venipuncture / Unknown 04/28/2025 4:46 AM EDT 04/28/2025 4:56 AM EDT us Aarti Maldonado MD LAB BLOOD ORDERABLES Final R esult Performing Organization Address City/[facility]/ZIP Co de Phone Number [facility] [address] [place] [address] * (ABNORMAL) POCT glucose meter (04/27/2025 7:19 PM EDT) [facility] POCT Glucose 267(H) 74 - 99 mg/dL [...] Comment 04/27/2025 7:21 PM EDT [facility] Clinical Veterinarian ID Moise Warren 04/27/20 7:21 PM EDT [facility] LAB Device ID [id number] 04/27/2025 7:21 PM EDT [facility] Specimen Type POC Capillary 04/27/2025 7:21 PM EDT [facility] Blood Capillary blood specimen / Unknown 04/27/2025 7:19 PM EDT 04/27/2025 7:21 PM EDT us Aarti Maldonado MD LAB POINT OF CARE TE ST DOCKED DEVICE UNSOLICITED RESULTS Final Result Performing Organization Address City/[facility]/ZIP Co de Phone Number HEALTHCARE LAB [address] [place] [address] * (ABNORMAL) POCT glucose meter (04/27/2025 5:17 PM EDT) [facility] POCT Glucose 235(H) 74 - 99 mg/dL [...] Comment 04/27/2025 5:18 PM EDT [facility] LAB Clinical Veterinarian ID Cara Lopez 5:18 PM EDT [facility] Device ID [id number] 04/27/2025 5:18 PM EDT [facility] Specimen Type POC Capillary 04/27/2025 5:18 PM EDT [facility] Blood Capillary blood specimen / Unknown 04/27/2025 5:17 PM EDT 04/27/2025 5:18 PM EDT us Aarti Maldonado MD LAB POINT OF CARE TE ST DOCKED DEVICE UNSOLICITED RESULTS Final Result [facility] [address] [place] [address] * (ABNORMAL) Basic metabolic panel (04/27/2025 2:13 PM EDT) [facility] Glucose, Plasma 220(H) 74 - 99 mg/dL 04/27/2025 3:08 PM EDT [facility] BUN, Plasma 18 8 - 23 mg/dL 04/27/2025 3:08 PM EDT [facility] Creatinine, Plasma 0.84 0.70 - 1.20 mg/dL 04/27/2025 3:08 PM EDT [facility] BUN/Creatinine Ratio 21 04/27/2025 3:08 PM EDT [facility] Sodium, Plasma 139 136 - 145 mmol/L 04/27/2025 3:08 PM EDT [facility] Potassium, Plasma 4.0 3.6 - 4.9 mmol/L 04/27/2025 3:08 PM EDT [facility] Chloride, Plasma 105 97 - 107 mmol/L 04/27/2025 3:08 PM EDT [facility] CO2, Plasma 22 22 - 29 mmol/L 04/27/2025 3:08 PM EDT [facility] Anion Gap 12 6 - 16 mmol/L 04/27/2025 3:08 PM EDT [facility] Total Calcium, Plasma 8.7(L) 8.9 - 10.2 mg/dL 04/27/2025 3:08 PM EDT [facility] eGFRcr 96.2 mL/min/1.7 3m*2 04/27/2025 3:08 PM EDT [facility] Comment:Reported eGFRcr in m L/min/1.73m2 is based the CKD-EPI 2020 equation that does not use a race coefficient. Blood Venous blood specimen / Unknown Venipuncture / Unknown 04/27/2025 2:13 PM EDT 04/27/2025 2:39 PM EDT us Aarti Maldonado MD LAB BLOOD ORDERABLES Final R esult [facility] [address] [place] [address] * (ABNORMAL) CBC W/O Differential (04/27/2025 2:13 PM EDT) WBC Count 8.39 3.70 - 10.30 10*3/uL LAB HEMATOLOGY METHOD 04/27/2025 2:47 PM EDT [facility] RBC Count 3.93(L) 4.60 - 6.10 10*6/uL LAB HEMATOLOGY METHOD 04/27/2025 2:47 PM EDT [facility] HGB 12.1(L) 13.7 - 17.5 g/dL LAB HEMATOLOGY METHOD 04/27/2025 2:47 PM EDT [facility] HCT 37.2(L) 40.0 - 51.0 % LAB HEMATOLOGY METHOD 04/27/2025 2:47 PM EDT [facility] Platelet Count 185 155 - 369 10*3/uL LAB HEMATOLOGY METHOD 04/27/2025 2:47 PM EDT [facility] MCV 95 79 - 98 fL LAB HEMATOLOGY METHOD 04/27/2025 2:47 PM EDT [facility] MCH 30.8 26.0 - 32.0 pg LAB HEMATOLOGY METHOD 04/27/2025 2:47 PM EDT [facility] MCHC 32.5 30.7 - 35.5 g/dL LAB HEMATOLOGY METHOD 04/27/2025 2:47 PM EDT [facility] RDW 13.0 11.5 - 14.5 % LAB HEMATOLOGY METHOD 04/27/2025 2:47 PM EDT [facility] MPV 10.0 8.8 - 12.5 fL LAB HEMATOLOGY METHOD 04/27/2025 2:47 PM EDT [facility] nRBC 0.0 <=0.0 per 100 WBCs LAB HEMATOLOGY METHOD 04/27/2025 2:47 PM EDT [facility] Blood Venous blood specimen / Unknown Venipuncture / Unknown 04/27/2025 2:13 PM EDT 04/27/2025 2:39 PM EDT us Aarti Maldonado MD LAB BLOOD ORDERABLES Final R esult [facility] [address] [place] [address] * (ABNORMAL) POCT glucose meter (04/27/2025 10:07 [...] Comment 04/27/2025 10:09 AM EDT [facility]ALTH[facility]ARE LAB Clinical Veterinarian ID Pan Wilkins 025 10:09 AM EDT [facility]ALTH[facility]ARE LAB Device ID [id number] 04/27/2025 10:09 AM EDT [facility]ALTH[facility] LAB Specimen Type POC Capillary 04/27/2025 10:09 AM EDT [facility] Blood Capillary blood specimen / Unknown 04/27/2025 10:07 AM EDT 04/27/2025 10:09 AM EDT us Aarti Maldonado MD LAB POINT OF CARE TE ST DOCKED DEVICE UNSOLICITED RESULTS Final Result [facility] [address] [place] [address] * Surgical Pathology Exam (04/27/2025 9:42 AM EDT) Case Report Surgical Pathology Case: [id number] Authorizing Provider: Aarti Maldonado MD Collected: 04/27/2025 0942 Ordering Location: [facility] A OPERATING ROOM Received: 04/27/2025 1010 Pathologist: Kary Bruce MD Specimen: Prostate, morcellated prostate 04/30/2025 10:26 AM EDT [facility] Final Diagnosis A. MORCELLATED PROSTATE, TRANSURETHRAL ENUCLEATION: - BENIGN NODULAR GLANDULAR AND STROMAL HYPERPLASIA. 04/30/2025 10:26 AM EDT [facility] at 1026 EDT Clinical Information BPH 04/30/2025 10:26 AM EDT [facility] Gross Description A. MORCELLATED PROSTATE Received in formalin labeled morcellated prostate , is an aggregate of pink-lobo to lobo-white soft tissue fragments weighing 32.0 g and measuring 5.8 x 5.5 x 2.6 cm. Tint Layer sections are submitted in cassettes A1 to A12. Cold Time: 28m Maribel Fields 04/30/2025 10:26 AM EDT [facility] Tissue Prostate / Unknown 9:42 AM EDT 04/27/2025 10:10 AM EDT Comment:Pre-op diagnosis: BPH us Aarti Maldonado MD LAB PATHOLOGY ORDERABLES Fin al Result Performing Organization Address [facility]/ZIP Co de Phone Number [facility] [address] [place] [address] * (ABNORMAL) POCT glucose meter (04/27/2025 6:47 [...] Comment 04/27/2025 6:49 AM EDT HEALTH[facility]ARE LAB Clinical Veterinarian ID Angeli Darden 025 6:49 AM EDT [facility] Device ID [id number] 04/27/2025 6:49 AM EDT [facility]ALTH[facility]ARE LAB Specimen Type POC Venous 04/27/2025 6:49 AM EDT [facility] Blood Venous blood specimen / Unknown 04/27/2025 6:47 AM EDT 04/27/2025 6:49 AM EDT us Aarti Maldonado MD LAB POINT OF CARE TE ST DOCKED DEVICE UNSOLICITED RESULTS Final Result Performing Organization Address City/State/[facility] Co de Phone Number HEALTHCARE LAB [address] [place] [address] documented in this encounter Visit Diagnoses Diagnosis [...] documented as of this encounter Care Teams Bleach Range Operator Relationship Specialty Start Date End Date Ryne Bergman MD [address] [place] [address] PCP - General 04/21/24 Abiola Loyola APRN [address] [place] [address] Nurse Practitioner Urology 10/30/24 Aarti Maldonado MD [address] [place] [address] Surgeon Urology 01/10/25 documented as of this encounter
[2025-05-25] VITALS (12 sets, daily range): BP systolic 134–197; BP diastolic 63–98; PULSE 54–81; RESP 16–22; TEMP 36.7–36.8; O2SAT 94–99; BMI 33.0
--- OUTSIDE RECORDS SUMMARY | 2025-05-25 04:04 | XMS_ITS | Encounter Summary ---
Author Organization Healthcare Address [address] [place] [address] Care Team Providers Care House Shorer Name Role Phone Ryne Bergman MD Primary Care Provider [phone] Abiola Loyola APRN Unavailable [phone] Aarti Maldonado MD Unavailable [phone] Encounter Details Date Type Department Care Team (Late Contact Info) Description 02/10/2024 Orders Only External Location [address] [place] [address] Nicole Bernstein, DO [address] [place] [address] Social History Tobacco Use Types [...] [address] [facility], [address] [place] [address] Aarti Maldonado MD [address] [facility] [address] [place] [address] documented as of this encounter [...] on filedocumented in this encounter Care Teams House Shorer Relationship Specialty Start Date End Date Ryne Bergman MD [address] [place] [address] PCP - General 04/21/24 Abiola Loyola APRN [address] [place] [address] Nurse Practitioner Urology 10/30/24 Aarti Maldonado MD [address] [place] [address] Surgeon Urology 01/10/25 documented as of this encounter
--- OUTSIDE RECORDS SUMMARY | 2025-05-25 04:04 | XMS_ITS | Encounter Summary ---
Author Organization [facility] Address [address] [place] [address] Care Team Providers Care Staff Veterinarian Name Role Phone Ryne Bergman MD Primary Care Provider + Encounter Details Date Type Department Care Team (Late st Contact Info) Description 04/10/2025 Patient Outreach [facility] CASE MANAG[facility]rena, MARZENA [address] [place] [address] Social History Tobacco Use Types Packs/Day Years [...] improved diet. Patient states to have had director private music therapy agency referral and received helpful information regarding diet. [...] [facility] [address] [place] [address] Ryne Bergman MD [address] [address] 03/14/2026 2:15 PM EDT Office Visit [facility] [address] [id number] Ryne Bergman MD [address] [place] [address] documented as of this encounter Visit Diagnoses Not on filedocumented in this encounter Additional Health Concerns Assessment Noted Time PHQ-2 Depression Total Score: 2 11/23/19 24 10:16 AM EST documented as of this encounter Care Teams Staff Veterinarian Relationship Specialty Start Date End Date Pacheco, Ryne Javy, MD [address] [facility] [place] [address] PCP - General Family Medicine 01/08/22 documented as of this encounter
--- OUTSIDE RECORDS SUMMARY | 2025-05-25 04:04 | XMS_ITS | Encounter Summary ---
Author Organization Healthcare Address [address] [place] [address] Care Team Providers Care Production Control Technologist Name Role Phone Ryne Bergman MD Primary Care Provider Abiola Loyola APRN Unavailable [phone] Aarti Maldonado MD Unavailable [phone] Encounter Details Date Type Department Care Team ([facility] Contact Info) Description 10/30/2019 Orders Only External Location [address] [place] [id number] Provider, External Social History Tobacco Use Types [...] Department Care Team (Late Contact Info) Description 06/20/2025 12:30 PM EDT Office Visit Medical Office Building Urology [address] [facility], [address] [place] [address] Aarti Maldonado MD [address] [facility] [address] [place] [address] documented as of this encounter [...] on filedocumented in this encounter Care Teams Production Control Technologist Relationship Specialty Start Date End Date Ryne Bergman MD [address] [place] [address] PCP - General 04/21/24 Abiola Loyola APRN [address] [address] Nurse Practitioner Urology 10/30/24 Aarti Maldonado MD [address] [place] [address] Surgeon Urology 01/10/25 documented as of this encounter
--- OUTSIDE RECORDS SUMMARY | 2025-05-25 04:04 | XMS_ITS ---
[facility] Address [address] [place] [address] Care Team Providers Care Welder Oxyhydrogen Name Role Phone Ryne Bergman MD Primary Care Provider + High Risk Care Management Status:Engaged (Active) Start date:03/08/2025 Enrollment date:03/13/2025 Enrollment reason:Identified using claims or encounter data Related social drivers of health:Social Connections, Financial Resource Strain, Stress, Physical Activity, Food Insecurity, Transportation Needs, Housing Stability Overview Esa OLIVAS A1C Case Team Name Relationship Phone Sandrita Kate RN(Responsible Staff) Ambulator y Saw Runner [phone] Continued Care and Services Coordination
--- OUTSIDE RECORDS SUMMARY | 2025-05-25 04:04 | XMS_ITS | Encounter Summary ---
[facility] Address [address] [place] [address] Care Team Providers Care Nuclear Powerplant Mechanic Helper Name Role Phone Ryne Bergman MD Primary Care Provider + Reason for Visit * Reason Comments Med Refill Encounter Details Date Type Department Care Team (Late st Contact Info) Description 05/21/2025 Refill [facility] [address] [place] [address] Ryne Bergman MD [address] [place] [address] Primary hypertension Social History Tobacco Use Types Packs/Day Years [...] 3:00 PM EDT Office Visit [facility] [address] [place] [address] Ryne Bergman MD [address] [place] [address] 03/14/2026 2:15 PM EDT Office Visit [facility] [address] [place] [address] Ryne Bergman MD [address] [place] [address] documented as of this encounter Visit Diagnoses Diagnosis Primary hypertension Unspecified essential hypertension documented in this encounter Additional Health Concerns Assessment Noted Time PHQ-2 Depression Total Score: 2 11/23/19 24 10:16 AM EST documented as of this encounter Care Teams Nuclear Powerplant Mechanic Helper Relationship Specialty Start Date End Date Ryne Bergman MD [address] [place] [address] PCP - General Family Medicine 01/08/22 documented as of this encounter
--- OUTSIDE RECORDS SUMMARY | 2025-05-25 04:04 | XMS_ITS | Encounter Summary ---
Author Organization [facility] Address [address] [place] [address] Care Team Providers Care Ocean Export Account Manager Name Role Phone Ryne Bergman MD Primary Care Provider [phone] Abiola Loyola APRN Unavailable [phone] Aarti Maldonado MD Unavailable [phone] Encounter Details Date Type Department Care Team (Late st Contact Info) Description 04/19/2025 Telephone [facility] [address] [place] [address] Aarti Maldonado MD [address] [place] [address] Social History Tobacco Use Types [...] 9:25 AM EDT Spoke with Lab at [facility] , they are to fax urine culture results documented in this encounter Plan of Treatment Upcoming Encounters Date Type Department Care Team (Late st Contact Info) Description 06/20/2025 12:30 PM EDT Office Visit Medical Office Building Urology [address] [facility], [address] [place] [address] Aarti Maldonado MD [address] [place] [address] documented as of this encounter Visit Diagnoses [...] documented as of this encounter Care Teams Ocean Export Account Manager Relationship Specialty Start Date End Date Ryne Bergman MD [address] [place] [address] PCP - General 04/21/24 Abiola Loyola APRN [address] [address] Nurse Practitioner Urology 10/30/24 Aarti Maldonado MD [address] [place] [address] Surgeon Urology 01/10/25 documented as of this encounter
--- OUTSIDE RECORDS SUMMARY | 2025-05-25 04:04 | XMS_ITS | Encounter Summary ---
Author Organization [facility] Address [address] [place] [address] Care Team Providers Care Rabies Inspector Name Role Phone Ryne Bergman MD Primary Care Provider + Encounter Details Date Type Department Care Team (Late st Contact Info) Description 05/18/2025 Patient Outreach [facility] CASE MANAGEMENT [facility], [address] [place] [address] Social History Tobacco Use Types Packs/Day Years [...] Nursing Notes * Sandrita Kate, RN - 05/18/2025 9:53 AM EDT Problem: Diabetes Type 2 Goal: Protect Myself From Diabetes Complications Outcome: Met Intervention: My Protect Myself From Diabetes Complications To Do List Description: Why is this important?Having diabetes puts you at risk for complications, such as kidney disease, heart disease, nerve damage and eye or dental problems.You can manage your risk by making healthy lifestyle choices and getting regular checkups. Flowsheets (Taken 05/18/20251040) My Protect Myself From Diabetes Complications To Do List: (Discussed care gaps with patient and voiced intent to follow up) get a foot exam at least once per year get an eye exam every year stay up to date with vaccines Goal: Monitor My Blood Sugar Outcome: Met Intervention: My Blood Sugar Management To Do [...] other medicine that you take. Flowsheets (Taken 05/18/2025 104) My Blood Sugar Management To Do List: (monitors blood sugar with CGM) -- Goal: Learn About Diabetes Outcome: Met Intervention: My Learn About Diabetes To Do List Description: Why is this important?Learning about diabetes can help you to manage it. Flowsheets (Taken 05/18/2025 1041) My Learn About Diabetes To Do List: talk to a dietitian to learn about nutrition Goal: Perform Foot Care Outcome: Met Intervention: My Foot Care To Do List Description: Why is this important?Good foot care is very important when you have diabetes.There are many things you can do to keep your feet healthy and catch a problem early. Flowsheets (Taken 05/18/2025 1041) My Foot Care To Do List: check feet daily for cuts, sores or redness Goal: Find Ways to Be Active Outcome: Progressing Goal: Optimal Care Coordination of a Patient Experiencing Diabetes, Type 2 Outcome: Progressing Intervention: Alleviate Barriers to Glycemic Management Flowsheets (Taken 05/18/2025 1041) Alleviate Barriers to Glycemic Management: blood glucose readings reviewed dental care encouraged Intervention: Monitor and Manage Follow-Up for Comorbidities Flowsheets (Taken 05/18/2025 1041) Monitor and Manage Follow-Up for Comorbidities: completion of annual dilated eye exam encouraged completion of annual foot exam encouraged healthy lifestyle promoted Intervention: Optimize Functional Ability Flowsheets (Taken 05/18/2025 1044) Optimize Functional Ability: self-care encouraged Intervention: Support Wellbeing and Self-Management Success Flowsheets (Taken 05/18/2025 1044) Support Wellbeing and Self-Management Success: healthy lifestyle promoted documented in this encounter Miscellaneous Notes * Outreach Note - Sandrita Kate RN - 05/18/2025 9:53 AM EDT AMBULATORY CASE MANAGEMENT NOTE Names and Relationships of Patient/Support Persons: Contact: Ramsey Castrejon; Relationship: Self - Patient Outreach RN-ACM outreach with patient. Patient states to be doing well following 04/27/25 prostate procedure. Patient states to be voiding without difficulty. Patient states no difficulty with fever; chest pain; SOB; appetite or sleeping. Patient states to be compliant with medications; medical appointments; monitoring of blood pressure and blood sugars with CGM. Patient states blood sugar and blood pressure WNL's. Patient states to be following diet as directed per model builder display; states no longer drink sodasand increased intake of water. Reviewed with patient education and verbalized understanding. Patient states to appreciate outreach. No further questions voiced at this time. Education Documentation When to Seek Medical Attention, taught by Sadnrita Kate RN at 05/18/2025 10:24 AM. Learner: Patient Readiness: Acceptance Method: Explanation Response: Verbalizes Understanding Participation with Disease Management Plan, taught by Sandrita Kate RN at 05/18/2025 10:24 AM. Learner: Patient Readiness: Acceptance Method: Explanation Response: Verbalizes Understanding Provider Follow-Up, taught by Sandrita Kate RN at 05/18/2025 10:24 AM. Learner: Patient Readiness: Acceptance Method: Explanation Response: Verbalizes Understanding Follow-Up Care, taught by Sandrita Kate RN at 05/18/2025 10:24 AM. Learner: Patient Readiness: Acceptance Method: Explanation Response: Verbalizes Understanding Continuous Glucose Monitoring (CGM), taught by Sandrita Kate RN at 05/18/2025 10:24 AM. Learner: Patient Readiness: Acceptance Method: Explanation Response: Verbalizes Understanding Sandrita Neumann Ambulatory Case Management 05/18/2025, 10:24 EDT documented in this encounter Plan of Treatment Upcoming Encounters Date Type Department Care Team (Late st Contact Info) Description 06/12/2025 3:00 PM EDT Office Visit [facility] [address] [place] [address] Ryne Bergman MD [address] [place] [address] 03/14/2026 2:15 PM EDT Office Visit [facility] [address] [place] [id number] Ryne Bergman MD [address] [place] [address] documented as of this encounter Visit Diagnoses Not on filedocumented in this encounter Additional Health Concerns Assessment Noted Time PHQ-2 Depression Total Score: 2 11/23/19 24 10:16 AM EST documented as of this encounter Care Teams Rabies Inspector Relationship Specialty Start Date End Date Ryne Bergman MD [address] [place] [address] PCP - General Family Medicine 01/08/22 documented as of this encounter
--- OUTSIDE RECORDS SUMMARY | 2025-05-25 04:04 | XMS_ITS | Encounter Summary ---
Author Organization [facility] Address [address] [place] [address] Care Team Providers Care Lead Fire Protection Engineer Name Role Phone Ryne Bergman MD Primary Care Provider [phone] Abiola Loyola MARKETING PROPOSAL COORDINATOR Unavailable [phone] Aarti Maldonado MD Unavailable [phone] Reason for Visit * Reason Onset Date Comments HCN Clinical Concern/Question 05/11/2025 Encounter Details Date Type Department Care Team (Late st Contact Info) Description 05/11/2025 Telephone [place] [facility] [address] [place] [address] Aarti Maldonado MD [address] [place] [address] HCN Clinical Concern/Question Social History [...] encounter Miscellaneous Notes * Telephone Encounter - Chung, Renee B, CHIEF OF STAFF - 05/14/2025 9:08 AM EDT I called and spoke with the patient. I relayed the message and appreciated the call back. * Telephone Encounter - Tiffany Ocampo RN - 05/11/2025 4:37 PM EDT I contacted Ramsey Castrejon by phone at [phone]. Patient had another blood clot in his urine. It had been a while since he had seen one and he was calling to ask if it was normal. Per discharge instructions, I told him that it is expected to have blood in the urine for up to 2-3 months after HoLEP procedure. Patient verbalized understanding to [facility] Emergency Department if unable to urinate. Patient also verbalized understanding to call the clinic with any further questions or concerns. Patient also asked if it is okay to get 6 teeth pulled or if he needed to wait a certain amount of time. His dentist wanted to know if he would have a delay in healing since he had surgery recently. Message sent to Endourology team. * Telephone Encounter - John Holt - 05/11/2025 4:15 PM EDT Clinical Concern/Question Reason for Call: He had sx on 04/27/2025 and has a question about some blood clots. Today he had one. Best contact number: [phone] (mobile) Optimal time of day to reach caller: ANYTIME Additional comments/information from caller: None Note: Please do not reply to this message. Follow-up communication and further actions as a result of this message need to be communicated with the patient directly, if the patient is not active onMyChart. If the patient is active on MyChart, they will receive notification of the communication/outcome via [employer]. documented in this encounter Plan of Treatment Upcoming Encounters Date Type Department Care Team (Late st Contact Info) Description 06/20/2025 12:30 PM EDT Office Visit Medical Office Building Urology [address] [facility], [address] [place] [phone] Aarti Maldonado MD [address] [address] documented as of this encounter Visit [...] as of this encounter Care Teams Lead Fire Protection Engineer Relationship Specialty Start Date End Date Ryne Bergman MD [address] [place] [address] PCP - General 04/21/24 Abiola Loyola APRN [address] [address] Nurse Practitioner Urology 10/30/24 Aarti Maldonado MD [address] [address] Surgeon Urology 01/10/25 documented as of this encounter
--- OUTSIDE RECORDS SUMMARY | 2025-05-25 04:04 | XMS_ITS | Encounter Summary ---
Author Organization [facility] Address [address] [place] [address] Care Team Providers Care Rn Maternal Child Name Role Phone Ryne Bergman MD Primary Care Provider [phone] Abiola Loyola APRN Unavailable [phone] Aarti Maldonado MD Unavailable [phone] Encounter Details Date Type Department Care Team (Late st Contact Info) Description 05/01/2025 Telephone [place] [facility] [address], [address] [place] [phone] Ingrid Puckett I, RN [facility] UROLOGY CLINIC Social History Tobacco Use Types Packs/Day Years [...] encounter Miscellaneous Notes * Telephone Encounter - Ingrid Puckett I, RN - 05/01/2025 12:24 PM EDT Called patient and relayed Dr. Maldonado's msg; patient understands to stay well hydrated and present to ED if he cannot urinate. * Telephone Encounter - Aarti Maldonado MD - 05/01/2025 12:12 PM EDT Continue to stay well hydrated, if it gets to the point where he absolutely cannot urinate he will need to be evaluated in the ER. Otherwise, clots are normal documented in this encounter Plan of Treatment Upcoming Encounters Date Type Department Care Team (Late st Contact Info) Description 06/20/2025 12:30 PM EDT Office Visit Medical Office Building Urology [facility], [address] [place] [address] Aarti Maldonado MD [address] [address] documented as of this encounter [...] as of this encounter Care Teams Rn Maternal Child Relationship Specialty Start Date End Date Ryne Bergman MD [address] [place] [address] PCP - General 04/21/24 Abiola Loyola APRN [address] [phone] Nurse Practitioner Urology 10/30/24 Aarti Maldonado MD [address] [place] [address] Surgeon Urology 01/10/25 documented as of this encounter
--- OUTSIDE RECORDS SUMMARY | 2025-05-25 04:04 | XMS_ITS | Encounter Summary ---
Author Organization [facility] Address [address] [place] [address] Care Team Providers Care Taxation Inspector Name Role Phone Ryne Bergman MD Primary Care Provider [phone] Abiola Loyola SECURITIES AND REAL ESTATE DIRECTOR Unavailable [phone] Aarti Maldonado MD Unavailable [phone] Encounter Details Date Type Department Care Team (Late Contact Info) Description 04/16/2025 Telephone [place] [facility] [address] [place] [address] Aarti Maldonado MD [address] [place] [address] Social History Tobacco Use Types [...] Urology [address] [facility], [address] [place] [phone] Aarti Maldonado MD [address] [place] [address] documented as of this encounter Visit Diagnoses Diagnosis Urinary tract infection- Primary Urinary tract infection, site not specified documented in this encounter Additional Health Concerns Assessment Noted Time PHQ-9 Depression Total Score: 0 01/11/20 9:55 AM EDT A fall risk assessment has been complete d for the patient 01/10/2025 9:55 AM EDT A Body Mass Index follow-up plan has been documented for the patient 01/10/2025 12:34 PM EDT documented as of this encounter Care Teams Taxation Inspector Relationship Specialty Start Date End Date Ryne Bergman MD [address] [place] [address] PCP - General 04/21/24 Abiola Loyola APRN [address] [place] [address] Nurse Practitioner Urology 10/30/24 Aarti Maldonado MD [address] [place] [address] Surgeon Urology 01/10/25 documented as of this encounter
--- OUTSIDE RECORDS SUMMARY | 2025-05-25 04:04 | XMS_ITS | Encounter Summary ---
[facility] Address [address] [place] [address] Care Team Providers Care Rn Forensic Name Role Phone Ryne Bergman MD Primary Care Provider + Reason for Visit * Reason Comments Med Refill Encounter Details Date Type Department Care Team (Late st Contact Info) Description 03/24/2025 Refill [facility] [address] [place] [address] Ryne Bergman MD [address] [place] [address] Type 2 diabetes mellitus with [...] [facility] [address] [place] [address] Ryne Bergman MD [address] [place] [address] 03/14/2026 2:15 PM EDT Office Visit [facility] [address] [place] [address] Ryne Bergman MD [address] [place] [address] documented as of this encounter Visit Diagnoses Diagnosis Type 2 diabetes mellitus with hyperglycemia, with long-term current use of insulin documented in this encounter Additional Health Concerns Assessment Noted Time PHQ-2 Depression Total Score: 2 11/23/19 24 10:16 AM EST documented as of this encounter Care Teams Rn Forensic Relationship Specialty Start Date End Date Ryne Bergman MD [address] [place] [address] PCP - General Family Medicine 01/08/22 documented as of this encounter
--- OUTSIDE RECORDS SUMMARY | 2025-05-25 04:04 | XMS_ITS | Encounter Summary ---
Author Organization [facility] Address [address] [place] [address] Care Team Providers Care Macroeconomics Professor Name Role Phone Ryne Bergman MD Primary Care Provider [phone] Abiola Loyola APRN Unavailable [phone] Aarti Maldonado MD Unavailable [phone] Encounter Details Date Type Department Care Team [...] Visit Medical Office Building Urology [address] [facility], [address] [place] [address] Aarti Maldonado MD [address] [facility] [address] [place] [address] documented as of this encounter [...] documented as of this encounter Care Teams Macroeconomics Professor Relationship Specialty Start Date End Date Ryne Bergman MD [address] [place] [address] PCP - General 04/21/24 Abiola Loyola APRN [address] [facility] [place] [address] Nurse Practitioner Urology 10/30/24 Aarti Maldonado MD [address] [facility] [place] [address] Surgeon Urology 01/10/25 documented as of this encounter
--- OUTSIDE RECORDS SUMMARY | 2025-05-25 04:05 | XMS_ITS | Clinical Summary ---
Author Organization [facility] Address [address] [place] [address] Care Team Providers Care Rod Buster Name Role Phone Ryne Bergman MD Primary Care Provider [phone] Abiola Loyola APRN Unavailable [phone] Aarti Maldonado MD Unavailable [phone] Allergies Active Allergy Reactions Criticality Noted Date Comments Morphine Hives,Itching,Rash,Swelling High 01/09/20 22 Oxybutynin Palpitations High 10/30/2024 Increase BP Medications FLUoxetine (PROzac) 40 MG capsule Take 1 capsule by mouth daily. Active FLUoxetine (PROzac) 20 MG capsule Take 1 capsule by mouth 1 time each day. Active HumaLOG MIX 75/25 KWIKPEN (75-25) 100 UNIT/ML injection pen INJECT 60 UNITS SUBCUTANEOUSLY ONCE IN THE MORNING, 30 UNITS AT NOON, AND 60 UNITS IN THE EVENING Active metFORMIN XR (Glucophage-X R) 750 MG 24 hr tablet Take 1 tablet by mouth 1 time each day with dinner. Active pioglitazone (Actos) 45 MG tablet Take 1 tablet by mouth daily. Active potassium chloride CR (K-Tab) 20 MEQ ER tablet Take 1 tablet by mouth 1 time each day. Active rosuvastatin (Crestor) 10 MG tablet Take 2 tablets by mouth 1 time each day. Active topiramate (Topamax) 25 MG tablet Take 1 tablet by mouth 2 times a day. Active valsartan (Diovan) 320 MG tablet Take 1 tablet by mouth 1 time each day. Active albuterol 108 (90 Base) MCG/ACT inhaler INHALE 1 PUFF BY MOUTH EVERY 6 HOURS Active Jardiance 10 MG Take 1 tablet by mouth daily. Active OneTouch Verio test strip USE 1 STRIP TO CHECK GLUCOSE TWICE DAILY DIRECTED Active BD Pen Needle Rosalia 2nd Gen 32G X 4 MM misc USE 1 PEN SUBCUTANEOUSLY THREE TIMES DAILY WITH INJECTABLE MEDICATION Active NIFEdipine CC (Adalat CC) 60 MG 24 hr tablet Take 1 tablet by mouth daily before breakfast. Do not crush, chew, or split. Active metoprolol succinate XL (Toprol-XL) 25 MG 24 hr tablet Take 1 tablet by mouth daily. Active aspirin 81 MG EC tablet Take 1 tablet by mouth 1 time each day. Active phenazopyridi ne (Pyridium) 200 MG tablet Take 1 tablet by mouth 3 times a day as needed for pain or discomfort (take with meals). 3 tablet Active finasteride (Proscar) 5 MG tablet Take 1 tablet by mouth 1 time each day. 2024 Discontinued(S top Taking at Discharge) hydrALAZINE (Apresoline) 25 MG tablet TAKE 1 TABLET BY MOUTH 4 TIMES DAILY NEEDED FOR BLOOD PRESSURE. TAKE 1 TABLET IF BLOOD PRESSURE GREATER THAN 180 2024 Discontinued pramipexole (Mirapex) 1 MG tablet Take 1 tablet (1 mg) by mouth 1 (one) time each day. 2024 Discontinued(S top Taking at Discharge) tamsulosin (Flomax) 0.4 MG 24 hr capsule Take 1 capsule by mouth 2 times a day. 2024 Discontinued(S top Taking at Discharge) diazePAM (Valium) 5 MG tablet Take 1 tablet by mouth every 8 hours as needed for anxiety (for MRI). 1 tablet 2024 Discontinued spironolacton e (Aldactone) 25 MG tablet Take 1 tablet by mouth daily. 2024 Discontinued acetaminophen (Tylenol) 500 MG tablet Take 2 tablets by mouth every 6 hours as needed for pain for up to 10 days. 80 tablet 05/08/ 2025 Active Problems Problem Noted Date Diagnosed Date BPH with urinary obstruction 04/27/2025 Acute urinary retention 10/30/2024 Urine retention 10/30/2024 [...] Encounters Date Type Department Care Team Description 05/11/2025 Telephone [facility] Urology [address] [place] [address] Aarti Maldonado MD HCN Clinical Concern/Question 05/01/2025 Telephone [facility] Urology [address] [address] Ingrid Puckett RN 04/27/2025 7:30 AM EDT - 04/27/2025 9:45 AM EDT Surgery [facility] [address] [place] [phone] Aarti Maldonado MD ENUCLEATION, PROSTATE, TRANSURETHRAL, USING HOLMIUM LASER [06470 (CPT )] 04/27/2025 7:29 AM EDT Anesthesia Event [facility] [address] [place] [phone] Lavon Jimenes MD 04/27/2025 5:38 AM EDT - 04/28/2025 3:43 PM EDT Hospital Encounter [facility] Inpatient [address] [place] [address] Aarti Maldonado MD BPH (benign prostatic hyperplasia) Discharge Disposition: Home or Self Care 04/27/2025 Travel 04/20/2025 Travel 04/19/2025 Telephone [facility] Urology [address], [address] [place] [address] Aarti Maldonado MD 04/16/2025 Telephone [facility] Urology [address], [address] [place] [address] Aarti Maldonado MD 04/02/2025 Telephone [facility] Urology [address], [address] [place] [address] Aarti Maldonado MD 03/23/2025 Telephone [facility] Urology [address], [facility] [place] [address] Aarti Maldonado MD 03/14/2025 2:45 PM EDT Pre-Admission Testing [facility] Pre-op Clinic [address], [address] [place] [address] Preop examination (Primary Dx) 03/14/2025 Telephone [facility] Urology [address], [facility] [place] [address] Aarti Maldonado MD 03/14/2025 Travel 03/12/2025 8:03 AM EDT - 03/12/2025 11:59 PM EDT Hospital Encounter [facility] Radiology [address] [place] [address] Benign prostatic hyperplasia with urinary frequency Discharge Disposition: Home or Self Care 03/12/2025 7:40 AM EDT - 03/12/2025 8:02 AM EDT Hospital Encounter [facility] Radiology [address] [place] [address] Benign prostatic hyperplasia with urinary frequency Discharge Disposition: Home or Self Care 03/12/2025 Results Follow-Up Medical Office Building Urology [address] [facility], [address] [place] [address] Aarti Maldonado MD 03/12/2025 Telephone [facility] Urology [address], [facility] [place] [address] Aarti Maldonado MD 03/09/25 Final Urine culture results 03/12/2025 Travel 03/09/2025 Orders Only [facility] Urology [address] [place] [address], [facility] [place] [address] Aarti Maldonado MD 03/09/2025 Telephone [facility] Urology [address] [place] [address], [address] [place] [address] Aarti Maldonado MD HCN Clinical Concern/Question 03/08/2025 Orders Only [facility] Urology [address] [place] [address], [address] [place] [address] Aarti Maldonado MD Microhematuria (Primary Dx) 03/08/2025 Telephone [facility] [address], [address] [place] [address] Aarti Maldonado MD 03/05/25 [facility] Last 3 Months Immunizations Immunization Administration Dates Next Due Hep A, Adult 07/30/2018 Influenza, injectable, quadr ivalent, preservative free 08/24/2023,07/28/2022,08/23/2019,07/30 Pneumococcal 20-edinson Conj Vaccine 11/23/2023 Pneumococcal Polysaccharide PPV23 07/25/2018 Family History Medical History Relation Name Comments Cancer Father [place] Cash Hypertension Mother Tawnya [place] Kidney disease Mother Tawnya Cash Anesthesia problems Neg Hx Malig Hyperthermia Neg Hx Relation Name Status Comments Father [place] Mother Tawnya Cash Social History Tobacco Use Types Packs/Day Years [...] Mass Index 34.69 04/27/2025 4:22 PM EDT Plan of Treatment Upcoming Encounters Date Type Department Care Team (Late st Contact Info) Description 06/20/2025 12:30 PM EDT Office Visit Medical Office Building Urology [address] [facility], [address] [place] [address] Aarti Maldonado MD [address] [facility] [address] [place] [address] Health Maintenance Due Date Last Done Comments [facility]-Hepatitis C Screening 1960 [facility]-Medicare Annual Wellness (AWV) 1960 [facility]-/Child/Adol SDOH Screenings [...] 2023 [facility]-Diabetes: Hemoglobin A1C 05/22/2024 11/23/2023, 07/28/2022 [id number] Vaccine (3 - season) 2024 03/07/2021, 02/07/2021 [facility]-Influenza Vaccine (#1) 05/28/202508/24, 07/28/2022, 08/23/2019, Additional history exists [facility]-Depression Screening 01/10/2026 01/10/2025, 12/26 [facility]-Hepatitis A Vaccines Aged Out 07/30/2018 No longer eligible based on patient's age to complete this topic [facility]-Pneumococcal Vaccine: 50+ Years Completed 11/23/2023, 07/25/2018 [facility]-Obesity Intervention Completed 04/02/2025, 12/26 HPV Vaccines Aged Out No longer eligi [...] on patient's age to complete this topic Medical Devices Implanted Type Area Operating Table Assembler Device Identifier Shelf Expiration Date Model / Serial / Lot Plate Plate N/A: Neck Procedures Procedure Name Priority Date/Time Associated Diagnosis Comments CBC W/O DIFFERENTIAL Routine 04/28/2025 4:46 AM EDT POCT GLUCOSE METER UNSOLICITED RESULTS Routine 04/27/2025 7:19 PM EDT POCT GLUCOSE METER UNSOLICITED RESULTS Routine 04/27/2025 5:17 PM EDT BASIC METABOLIC PANEL, PLASMA STAT 04/27/2025 2:13 PM EDT CBC W/O DIFFERENTIAL STAT 04/27/2025 2:13 PM EDT POCT GLUCOSE METER UNSOLICITED RESULTS Routine 04/27/2025 10:07 AM EDT SURGICAL PATHOLOGY EXAM Routine 04/27/2025 9:42 AM EDT BPH (benign prostatic hyperplasia) ANESTHESIA PERIPHERAL IV PLACEMENT Routine 04/27/2025 7:40 AM EDT PB ANESTHESIA PLACEHOLDER Routine 04/27/2025 7:36 AM EDT AK AN ELECTIVE ENDOTRACHEAL AIRWAY Routine 04/27/2025 7:36 AM EDT AK LASER ENUCLEATION PROSTATE W MORCELLATION 04/27/2025 7:14 AM EDT BPH (benign prostatic hyperplasia) Special Needs Will need [facility] - masterpulse holmium laser, piranha morcellator and storz scope set. POCT GLUCOSE METER UNSOLICITED RESULTS Routine 04/27/2025 6:47 AM EDT MR PROSTATE W AND WO IV CONTRAST Routine 03/12/2025 9:14 AM EDT Benign prostatic hyperplasia with urinary frequency XR EYE FOREIGN BODY Routine 03/12/2025 8 :18 AM EDT Benign prostatic hyperplasia with urinary frequency from Last 3 Months Results * (ABNORMAL) Hemogram (CBC) (04/28/2025 4:46 AM EDT) Only the most recent of2 resultswithin the time period is included. WBC Count 9.03 3.70 - 10.30 10*3/uL LAB HEMATOLOGY METHOD 04/28/2025 5:03 AM EDT [facility] RBC Count 3.88(L) 4.60 - 6.10 10*6/uL LAB HEMATOLOGY METHOD 04/28/2025 5:03 AM EDT [facility] HGB 11.7(L) 13.7 - 17.5 g/dL LAB HEMATOLOGY METHOD 04/28/2025 5:03 AM EDT [facility] HCT 37.4(L) 40.0 - 51.0 % LAB HEMATOLOGY METHOD 04/28/2025 5:03 AM EDT [facility] Platelet Count 135(L) 155 - 369 10*3/uL LAB HEMATOLOGY METHOD 04/28/2025 5:03 AM EDT [facility] MCV 96 79 - 98 fL LAB HEMATOLOGY METHOD 04/28/2025 5:03 AM EDT [facility] MCH 30.2 26.0 - 32.0 pg LAB HEMATOLOGY METHOD 04/28/2025 5:03 AM EDT [facility] MCHC 31.3 30.7 - 35.5 g/dL LAB HEMATOLOGY METHOD 04/28/2025 5:03 AM EDT [facility] RDW 13.1 11.5 - 14.5 % LAB HEMATOLOGY METHOD 04/28/2025 5:03 AM EDT [facility] MPV 10.2 8.8 - 12.5 fL LAB HEMATOLOGY METHOD 04/28/2025 5:03 AM EDT [facility] nRBC 0.0 <=0.0 per 100 WBCs LAB HEMATOLOGY METHOD 04/28/2025 5:03 AM EDT [facility] Blood Venous blood specimen / Unknown Venipuncture / Unknown 04/28/2025 4:46 AM EDT 04/28/2025 4:56 AM EDT us Aarti Maldonado MD LAB BLOOD ORDERABLES Final R esult [facility] [address] [place] [address] * (ABNORMAL) POCT glucose meter (04/27/2025 7:19 PM EDT) Only the most recent of4 resultswithin the time period is included. [facility] POCT Glucose 267(H) 74 - 99 [...] Comment 04/27/2025 7:21 PM EDT [facility] Aircraft Pneudraulics Repairer ID Moise Warren 04/27/20 7:21 PM EDT [facility]ALTH[facility]ARE LAB Device ID [id number] 04/27/2025 7:21 PM EDT [facility] Specimen Type POC Capillary 04/27/2025 7:21 PM EDT [facility] Blood Capillary blood specimen / Unknown 04/27/2025 7:19 PM EDT 04/27/2025 7:21 PM EDT us Aarti Maldonado MD LAB POINT OF CARE TE ST DOCKED DEVICE UNSOLICITED RESULTS Final Result Performing Organization Address City/State/[facility] Co de Phone Number HEALTHCARE LAB [address] [place] [address] * (ABNORMAL) Basic metabolic panel (04/27/2025 2:13 PM EDT) [facility] Glucose, Plasma 220(H) 74 - 99 mg/dL 04/27/2025 3:08 PM EDT [facility] BUN, Plasma 18 8 - 23 mg/dL 04/27/2025 3:08 PM EDT [facility] Creatinine, Plasma 0.84 0.70 - 1.20 mg/dL 04/27/2025 3:08 PM EDT [facility] BUN/Creatinine Ratio 21 04/27/2025 3:08 PM EDT [facility] Sodium, Plasma 139 136 - 145 mmol/L 04/27/2025 3:08 PM EDT [facility] Potassium, Plasma 4.0 3.6 - 4.9 mmol/L 04/27/2025 3:08 PM EDT [facility] Chloride, Plasma 105 97 - 107 mmol/L 04/27/2025 3:08 PM EDT [facility] CO2, Plasma 22 22 - 29 mmol/L 04/27/2025 3:08 PM EDT [facility] Anion Gap 12 6 - 16 mmol/L 04/27/2025 3:08 PM EDT [facility] Total Calcium, Plasma 8.7(L) 8.9 - 10.2 mg/dL 04/27/2025 3:08 PM EDT [facility] eGFRcr 96.2 mL/min/1.7 3m*2 04/27/2025 3:08 PM EDT [facility] Comment:Reported eGFRcr in m L/min/1.73m2 is based the CKD-EPI 2020 equation that does not use a race coefficient. Blood Venous blood specimen / Unknown Venipuncture / Unknown 04/27/2025 2:13 PM EDT 04/27/2025 2:39 PM EDT us Aarti Maldonado MD LAB BLOOD ORDERABLES Final R esult [facility] [address] [place] [address] * Surgical Pathology Exam (04/27/2025 9:42 AM EDT) Case Report Surgical Pathology Case: [id number] Authorizing Provider: Aarti Maldonado MD Collected: 04/27/2025 0942 Ordering Location: [facility] A OPERATING ROOM Received: 04/27/2025 1010 Pathologist: Kary Bruce MD Specimen: Prostate, morcellated prostate 04/30/2025 10:26 AM EDT [facility] Final Diagnosis A. MORCELLATED PROSTATE, TRANSURETHRAL ENUCLEATION: - BENIGN NODULAR GLANDULAR AND STROMAL HYPERPLASIA. 04/30/2025 10:26 AM EDT [facility] at 1026 EDT Clinical Information BPH 04/30/2025 10:26 AM EDT [facility] Gross Description A. MORCELLATED PROSTATE Received in formalin labeled morcellated prostate , is an aggregate of pink-lobo to lobo-white soft tissue fragments weighing 32.0 g and measuring 5.8 x 5.5 x 2.6 cm. Iv Technician sections are submitted in cassettes A1 to A12. Cold Time: 28m Maribel Fields 04/30/2025 10:26 AM EDT [facility] Tissue Prostate / Unknown 9:42 AM EDT 04/27/2025 10:10 AM EDT Comment:Pre-op diagnosis: BPH us Aarti Maldonado MD LAB PATHOLOGY ORDERABLES Fin al Result [facility] [address] [place] [address] * Peripheral IV (04/27/2025 7:40 AM EDT) Narrative Chelly Machuca CRNA - 04/27/2025 7:40 AM EDT Chelly Machuca CRNA 04/27/2025 8:04 AM Peripheral IV Date/Time: 04/27/2025 7:40 AM Placement Needle size: 18 G Location: forearm Site prep: alcohol Technique: anatomical landmarks Attempts: 1 us Chelly Machuca CRNA ANESTHESIA ORDERABLES Final Result * AK AN ELECTIVE ENDOTRACHEAL AIRWAY, PB ANESTHESIA PLACEHOLDER (04/27/2025 7:36 AM EDT) Narrative Chelly Machuca CRNA - 04/27/2025 7:36 AM EDT Chelly Machuca CRNA 04/27/2025 8:04 AM Airway Date/Time: 04/27/2025 7:36 AM Reason: elective Airway not difficult General Information and Staff Patient location during procedure: OR ROUND UP RING HAND: Chelly Machuca CRNA Other anesthesia staff: Philippe [...] from: lips ETT to lips (cm): 22 us Chelly Machuca ROUND UP RING HAND ANESTHESIA ORDERABLES Final Result * MR Prostate w and wo IV [...] and 800 s/mm2 used to generate calculated h=4322 s/mm2 and ADC map; and an acquired high b =1400 s/mm2; axial 3D dynamic contrast-enhanced [id number] imaging with <10 sec temporal resolution were [...] 50 and 800 s/mm2 used to generatecalculated c=6874 s/mm2 and ADC map; and an acquired high b =1400 s/mm2;axial 3D dynamic contrast-enhanced [id number] imaging with <10 sectemporal resolution were acquired [...] Final Result from Last 3 Months Insurance [facility] Advance Directives * Full Code (Latest Code Status on File) Date Activated Date Inactivated Comments 04/27/2025 10:24 AM 04/28/2025 5:48 PM Question Answer Comments I have reviewed the capacity from the link above and, if needed, have updated to appropriate status: Yes Care Teams Rod Buster Relationship Specialty Start Date End Date Ryne Bergman MD [address] [place] [address] [id number] PCP - General 04/21/24 Abiola Loyola APRN [address] [phone] Nurse Practitioner Urology 10/30/24 Aarti Maldonado MD [address] [facility] [place] [address] Surgeon Urology 01/10/25
--- OUTSIDE RECORDS SUMMARY | 2025-05-25 04:05 | XMS_ITS | Encounter Summary ---
Author Organization [facility] Address [address] [place] [address] Care Team Providers Care Drawer In Stitch Bonding Machine Name Role Phone Ryne Bergman MD Primary Care Provider [phone] Abiola Loyola APRN Unavailable [phone] Aarti Maldonado MD Unavailable [phone] Encounter Details Date Type Department Care Team (Late st Contact Info) Description 04/02/2025 Telephone [facility] [address] [place] [address] Aarti Maldonado MD [address] [place] [address] Social History Tobacco Use Types [...] Gonzales, patient to have urine culture at [facility] documented in this encounter Plan of Treatment Upcoming Encounters Date Type Department Care Team (Late st Contact Info) Description 06/20/2025 12:30 PM EDT Office Visit Medical Office Building Urology [address] [facility], [address] [place] [address] Aarti Maldonado MD [address] [address] Scheduled Orders Name Type Priority Associated Diagnoses Orde r Schedule Urine Culture Microbiology Routine Urine retention Expected: 04/02/2025 (Approximate), Expires: 10/04/2026 documented as of this encounter Visit Diagnoses [...] documented as of this encounter Care Teams Drawer In Stitch Bonding Machine Relationship Specialty Start Date End Date Ryne Bergman MD [address] [place] [address] PCP - General 04/21/24 Abiola Loyola APRN [address] [place] [phone] Nurse Practitioner Urology 10/30/24 Aarti Maldonado MD [address] [place] [address] Surgeon Urology 01/10/25 documented as of this encounter
--- OUTSIDE RECORDS SUMMARY | 2025-05-25 04:05 | XMS_ITS | Encounter Summary ---
Author Organization [facility] yste Address [address] [place] [address] Care Team Providers Care Steam Blocker Name Role Phone Ryne Bergman MD Primary Care Provider + Encounter Details Date Type Department Care Team (Late st Contact Info) Description 02/04/2025 Results Follow-Up [facility] [address] [place] [address] Ryne Bergman MD [address] [place] [address] Social History Tobacco Use Types [...] [facility] [address] [place] [address] Ryne Bergman MD [address] [place] [address] 03/14/2026 2:15 PM EDT Office Visit [facility] [address] [place] [address] Ryne Bergman MD [address] [place] [address] documented as of this encounter Visit Diagnoses Not on filedocumented in this encounter Additional Health Concerns Assessment Noted Time PHQ-2 Depression Total Score: 2 11/23/19 24 10:16 AM EST documented as of this encounter Care Teams Steam Blocker Relationship Specialty Start Date End Date Ryne Bergman MD [address] [place] [address] PCP - General Family Medicine 01/08/22 documented as of this encounter
--- OUTSIDE RECORDS SUMMARY | 2025-05-25 04:05 | XMS_ITS | Encounter Summary ---
Author Organization [facility] yste Address [address] [place] [address] Care Team Providers Care Meat Curer Name Role Phone Ryne Bergman MD Primary Care Provider + Reason for Visit * Reason Comments Med Refill Encounter Details Date Type Department Care Team (Late st Contact Info) Description 04/02/2023 Refill [facility] [address] [place] [address] Ryne Bergman MD [address] [place] [address] Type 2 diabetes mellitus with [...] Visit [facility] [address] [place] [address] Ryne Bergman MD [address] [place] [address] 03/14/2026 2:15 PM EDT Office Visit [facility] [address] [place] [address] Ryne Bergman MD [address] [place] [address] documented as of this encounter Visit Diagnoses Diagnosis Type 2 diabetes mellitus with hyperglycemia, with long-term current use of insulin documented in this encounter Additional Health Concerns Assessment Noted Time PHQ-2 Depression Total Score: 2 11/12/19 23 12:00 PM EST documented as of this encounter Care Teams Meat Curer Relationship Specialty Start Date End Date Ryne Bergman MD [address] [place] [address] PCP - General Family Medicine 01/08/22 documented as of this encounter
--- OUTSIDE RECORDS SUMMARY | 2025-05-25 04:05 | XMS_ITS | Encounter Summary ---
Author Organization [facility] Address [address] [place] [address] Care Team Providers Care Ticket Scheduler Name Role Phone Ryne Bergman MD Primary Care Provider [phone] Abiola Loyola APRN Unavailable [phone] Aarti Maldonado MD Unavailable [phone] Encounter Details Date Type Department Care Team (Latest Contact Info) Description 04/27/2025 Travel Social History Tobacco Use Types Packs/Day [...] Lassiter RN documented as of this encounter Plan of Treatment Upcoming Encounters Date Type Department Care Team (Late st Contact Info) Description 06/20/2025 12:30 PM EDT Office Visit Medical Office Building Urology [address] [facility], [address] [place] [address] Aarti Maldonado MD [address] [place] [address] documented as of this encounter [...] documented as of this encounter Care Teams Ticket Scheduler Relationship Specialty Start Date End Date Ryne Bergman MD [address] [place] [address] PCP - General 04/21/24 Abiola Loyola APRN [address] [place] [address] Nurse Practitioner Urology 10/30/24 Aarti Maldonado MD [address] [place] [address] Surgeon Urology 01/10/25 documented as of this encounter
--- OUTSIDE RECORDS SUMMARY | 2025-05-25 04:05 | XMS_ITS | Encounter Summary ---
Author Organization [facility] Address [address] [place] [address] Care Team Providers Care Vest Presser Name Role Phone Ryne Bergman MD Primary Care Provider [phone] Abiola Loyola APRN Unavailable [phone] Aarti Maldonado MD Unavailable [phone] Encounter Details Date Type Department Care Team ([facility] [address] Contact Info) Description 03/12/2025 Results Follow-Up Medical Office Building Urology [address] [facility], [address] [place] [address] Aarti Maldonado MD [address] [place] [address] Social History Tobacco Use Types [...] Risk Indicated 04/28/2025 7:45 AM EDT Lucy Jacobo, MARZENA * Question Answer Date of Assessment Author 1. Wish to be (Past 1 Month) No 025 7:45 AM EDT Lucy Jacobo, MARZENA 2. Non-Specific Active Suici kwesi Thoughts (Past 1 Month) No 04/28/2025 7:45 AM EDT Ziggy Jacobo, RN 6. Suicidal Behavior (Lifetime) No 7:45 AM EDT Lucy Jacobo, RN documented as of this encounter Plan of Treatment Upcoming Encounters Date Type Department Care Team (Late st Contact Info) Description 06/20/2025 12:30 PM EDT Office Visit Medical Office Building Urology [address] [facility], [address] [place] [address] Aarti Maldonado MD [address] [address] documented as of this encounter [...] documented as of this encounter Care Teams Vest Presser Relationship Specialty Start Date End Date Ryne Bergman MD [address] [place] [address] PCP - General 04/21/24 Abiola Loyola APRN [address] [address] Nurse Practitioner Urology 10/30/24 Aarit Maldonado MD [address] [place] [address] Surgeon Urology 01/10/25 documented as of this encounter
--- OUTSIDE RECORDS SUMMARY | 2025-05-25 04:05 | XMS_ITS | Clinical Summary ---
Author Organization [facility] Address [address] [place] [address] Care Team Providers Care Seam Closer Name Role Phone Ryne Bergman MD Primary Care Provider + Allergies Active Allergy Reactions Criticality Noted Date Comments Morphine Hives,Rash Low 01/08/2022 Oxybutynin Palpitations High 10/30/2024 Increase BP Medications OneTouch Verio test stripIndications :Type 2 diabetes [...] units in the evening 50 mL 12/05/19 Active Insulin Pen Needle 32G X 4 [...] daily 30 tablet 3 03/26/20 25 Active potassium chloride ER (K-TAB) 20 MEQ tablet controlled-relea se ER tabletIndication s:Primary hypertension Take 1 tablet by mouth once daily with food 90 tablet 05/23/20 25 Active potassium chloride ER (K-TAB) 20 MEQ tablet controlled-relea se ER tabletIndication s:Primary hypertension Take 1 tablet by mouth Daily. with food. 90 tablet 11 11/23/19 24 025 Discontinued Active Problems Problem Noted Date [...] given forms for patient assistance program from [employer] for Ozempic. Patient will complete and return [...] tendon of long head of right biceps 04/09/2004/09/2022 Encounters Date Type Department Care Team Description 05/21/2025 Refill [facility] [address] [place] [address] Ryne Bergman MD Primary hypertension 05/18/2025 Patient Outreach [facility] Sandrita Logan, MARZENA 04/10/2025 Patient Outreach [facility] Sandrita Logan, MARZENA 03/24/2025 Refill [facility] [address] [place] [address] Ryne Bergman MD Type 2 diabetes mellitus with hyperglycemia, with long-term current use of insulin 03/13/2025 Patient Outreach [facility] Sandrita Logan, MARZENA 03/12/2025 2:15 PM EDT Office Visit [facility] [address] [place] [address] Ryne Bergman MD Medicare annual wellness visit, subsequent (Primary Dx); Annual physical exam; Type 2 diabetes mellitus with hyperglycemia, with long-term current use of insulin 03/12/2025 Travel 03/02/2025 Refill [facility] [address] [place] [address] Ryne Bergman MD from Last 3 Months Immunizations Immunization Administration Dates Next Due COVID-19 (MODERNA) 1st,2nd,3 rd Dose Monovalent 03/07/2021,02/07/2021 Flu Vaccine Quad PF >36MO 08/23/2019,07/30/2018 Fluzone (or Fluarix & Flulav al for VFC) >6mos 08/24/2023,07/28/2022,08/23/2019,07/30 Hepatitis A 07/30/2018 Pneumococcal Conjugate 20-Va lent (PCV20) 11/23/2023 Pneumococcal Polysaccharide (PPSV23) 07/25/2018 Family History Medical History Relation Name Comments Alcohol abuse Father [place] Cancer Father [place] Lung & bone c ancer Alcohol abuse Mother [place] Cancer Mother [place] Lung & bone c ancer Relation Name Status Comments Father [place] Alive Mother [place] Alive Social History Tobacco Use Types [...] [facility] [address] [place] [address] Ryne Bergman MD [address] [place] [address] 03/14/2026 2:15 PM EDT Office Visit [facility] [address] [place] [address] Ryne Bergman MD [address] [place] [address] Health Maintenance Due Date Last Done [...] Priority Date/Time Associated Diagnosis Comments SCANNED - IMAGING 04/18/2025 SCANNED - LABS 04/13/2025 SCANNED - LABS [...] Recently Relevant to Health Maintenance Results * IMAGING SCANNED (04/18/2025) Only the most recent of3 resultswithin the time period is included. Anatomical Region Laterality Modality Radiographic Mansi ging Ryne Bergman MD IMG DIAGNOSTIC IMAGING O RDERABLES Final Result * LABS SCANNED (04/13/2025) Only the most recent of5 resultswithin the time period is included. Ryne Bergman MD LAB BLOOD ORDERABLES Fin al Result * (ABNORMAL) POC Glycosylated Hemoglobin (Hb A1C) (03/12/2025 2:55 PM EDT) Hemoglobin A1C 8.3(A) 4.5 - 5.7 % [facility] Lot Number [id number] [facility] Expiration Date 11/13/2026 [facility] Blood 03/12/2025 2:55 PM EDT Ryne Bergman MD POINT OF CARE TEST ORDER MICHELL Final Result [facility]
[address] [place] [address], * CT Chest Low Dose Cancer Screening [...] MD 02/02/2025 10:03 AM EDT Workstation ID: [id number] Narrative 02/02/2025 10:[address] CHEST [...] MD 02/02/2025 10:03 AM EDT Workstation ID: [id number] Ryne Bergman MD IM CT ORDERABLES Final Result * POC Albumin/Creatinine [...] Most Recently Relevant to Health Maintenance Insurance [employer] HMO Care Teams Seam Closer Relationship Specialty Start Date End Date Ryne Bergman MD [address] [address] PCP - General Family Medicine 01/08/22
--- NOTE | 2025-05-25 04:15 | HMH.EDGENADL ---
Discharge Plan Disposition Patient Disposition: Home, Self-Care Condition: Good Prescriptions Prescriptions: No Action topiramate [Topamax] 25 mg tablet 25 mg PO BID (DME) OneTouch Verio test strips Strip See Rx Instructions .ROUTE .MEDSUPPLY Qty: 10 Patient Comments: USE 1 STRIP TO CHECK GLUCOSE TWICE DAILY DIRECTED Rx Instructions: As directed rosuvastatin 20 mg tablet 20 mg PO DAILY Patient Comments: TAKE 1 TABLET BY MOUTH ONCE DAILY (DME) FreeStyle Yuliya 3 Plus Sensor Device See Rx Instructions .ROUTE .MEDSUPPLY Qty: 1 Patient Comments: USE SENSOR EVERY 15 DAYS Rx Instructions: As directed ([facility] [place]) pen needle, diabetic 32 gauge x 5/32 needle See Rx Instructions .ROUTE .MEDSUPPLY Qty: 1200 Patient Comments: USE 1 PEN SUBCUTANEOUSLY THREE TIMES DAILY WITH INJECTABLE MEDICATION Rx Instructions: As directed pramipexole 1 mg tablet 1 mg PO HS Patient Comments: TAKE 1 TABLET BY MOUTH ONCE DAILY AT NIGHT tamsulosin 0.4 mg capsule 0.4 mg PO BID Patient Comments: TAKE 1 CAPSULE BY MOUTH TWICE DAILY 30 MINUTES AFTER MEAL Jardiance 10 mg tablet 10 mg PO DAILY Patient Comments: TAKE 1 TABLET BY MOUTH ONCE DAILY valsartan 320 mg tablet 320 mg PO DAILY nitroglycerin 0.4 mg tablet, sublingual 0.4 mg sublingual Q5M PRN (Reason: chest pain) Qty: 20 0RF Rx Instructions: do not exceed 3 doses per episode finasteride [Proscar] 5 mg tablet 5 mg PO DAILY Qty: 90 3RF metoprolol succinate 25 mg tablet extended release 24 hr 25 mg PO DAILY Qty: 30 5RF pioglitazone [Actos] 45 mg Tablet 45 mg PO DAILY insulin lispro protamin-lispro 100 unit/mL (75-25) Insulin Pen 0 unit SQ DIRECTED Rx Instructions: 60 UNITS IN AM, 30 UNITS AT NOON, 60 UNITS AT BEDTIME fluoxetine 60 mg Tablet 60 mg PO DAILY metformin 750 mg tablet extended release 24 hr 750 mg PO DAILY Patient Comments: TAKE 1 TABLET BY MOUTH ONCE DAILY WITH BREAKFAST albuterol sulfate 90 mcg/actuation HFA aerosol inhaler 1 inh inhalation Q6HP PRN (Reason: Shortness Of Breath) nifedipine 90 mg tablet extended release 60 mg PO DAILY Qty: 30 2RF lidocaine 5 % adhesive patch,medicated 1 patch topical DAILY Qty: 15 0RF Rx Instructions: leave on most painful area for up to 12 hrs aspirin 81 mg capsule 81 mg PO DAILY Qty: 30 0RF Referrals Follow up/Referrals: Ryne Bergman MD [Primary Care Provider, Medical] - See instructions Activity Restrictions/Add. Instructions Additional Instructions/Restrictions: Please keep the main catheter in place. Return to the ER promptly if you begin experiencing trouble with the catheter draining of abdominal pain. Dr. Maldonado is going to have her clinic physicians reach out to you to schedule an appointment this week in clinic to do a voiding trial and have the catheter removed. If you have not heard from them by next week, please call their office. Their clinic phone number is [phone]. Clinical Impressions Clinical Impression: Acute urinary retention Hematuria Qualifiers: Hematuria type: gross Qualified Code(s): R31.0 - Gross hematuria Instructions Patient Instructions: Blood in Urine Print Language Print Language: [place] Discharge ED Provider: Roney Bo General Adult HPI <Roney Bo MD - Last Filed: 05/25/25 07:08> General Chief complaint: Urogenital-Male Stated complaint: prostate surgery 04/27, unable to urinate Time Seen by Provider: 05/25/25 04:00 Mode of Arrival: Ambulatory Source of Information: Patient Description of Symptoms (Recalled from ER Triage Doc. by RN): pt reports difficulty urinating and increased pain since 0000. pt reports a prostate surgery 1 month ago due to an enlarged prostate. pt reports he has been urinating blood and blood clots off and on since. bladder scan showed 616ml History of Present Illness HPI narrative: 64-year-old male with history of prostate surgery approximately 1 month ago presents with suprapubic pelvic pain, inability urinate. He reports that he has been noticing some blood and some clots over the last couple of days, he called his urologist office and they said this could be expected after surgery. However, he has been unable to pee and is in severe pain over the last couple of hours. He denies any history of bleeding, not on blood thinner besides daily aspirin. Related Data Home Medications ?Medication ?Instructions ?Recorded ?Confirmed topiramate 25 mg tablet (Topamax) 25 mg PO BID 10/05/17 04/26/25 fluoxetine 60 mg tablet 60 mg PO DAILY 03/17/24 04/26/25 insulin lispro protamine-lispro 0 unit SQ DIRECTED 03/17/24 04/26/25 100 unit/mL (75-25) subcutaneous pen pioglitazone 45 mg tablet (Actos) 45 mg PO DAILY 03/17/24 04/26/25 blood sugar diagnostic (OneTouch #10 ea 01/25/25 04/26/25 Verio test strips) blood-glucose sensor (FreeStyle #1 ea 01/25/25 04/26/25 Yuliya 3 Plus Sensor device) empagliflozin 10 mg tablet 10 mg PO DAILY 01/25/25 04/26/25 (Jardiance) pen needle, diabetic 32 gauge x #1,200 ea 01/25/25 04/26/25 pramipexole 1 mg tablet 1 mg PO HS 01/25/25 04/26/25 rosuvastatin 20 mg tablet 20 mg PO DAILY 01/25/25 04/26/25 tamsulosin 0.4 mg capsule 0.4 mg PO BID 01/25/25 04/26/25 valsartan 320 mg tablet 320 mg PO DAILY 01/25/25 04/26/25 albuterol sulfate 90 mcg/actuation 1 inh inhalation Q6HP PRN 03/11/25 04/26/25 aerosol inhaler Shortness Of Breath metformin 750 mg tablet,extended 750 mg PO DAILY 03/11/25 04/26/25 release 24 hr Previous Rx's ?Medication ?Instructions ?Recorded finasteride 5 mg tablet (Proscar) 5 mg PO DAILY #90 tabs 11/20/24 aspirin 81 mg capsule 81 mg PO DAILY #30 caps 01/11/25 nifedipine 90 mg tablet,extended 60 mg (0.6667 x 90 mg) PO DAILY 03/11/25 release #30 tabs nitroglycerin 0.4 mg sublingual 0.4 mg sublingual Q5M PRN chest 03/13/25 tablet pain #20 tabs metoprolol succinate 25 mg 25 mg PO DAILY #30 tabs 04/16/25 tablet,extended release 24 hr lidocaine 5 % topical patch 1 patch topical DAILY #15 ea 04/25/25 Allergies Allergy/AdvReac Type Severity Reaction Status Date / Time oxybutynin Allergy Severe angioedema Verified 04/26/25 10:35 morphine (MORPHINE) Allergy Unknown Verified 04/26/25 10:35 [facility] <Roney Bo MD - Last Filed: 05/25/25 07:08> [facility] Disclaimer: The information contained in this section may have been updated after the patient was seen, as this information can be updated by other users. Medical History Other hyperlipidemia Other forms of dyspnea Abnormal echocardiogram Coronary artery disease Chronic neck and back pain TIA (transient ischemic attack) Urinary tract infection Anxiety and depression Hyperlipidemia Hypertension H/O carpal tunnel syndrome Diabetes mellitus, type 2 Sleep apnea History of chest pain Surgical History H/O discectomy History of cholecystectomy Family History Other Bone cancer Kidney failure Lung cancer Social History Smoking Status: Current some day smoker tobacco type: cigarettes smoking status start date: 2023 quit status: has quit before alcohol intake: never substance use type: denies use current occupational status: other Travel in the last 8 weeks?: None household members: spouse housing: house current occupational exposures/hazards: No caffeine: Yes Have you lived/traveled outside [place] in past 30 days?: No Contact w/someone who lives/traveled outside [place] past 30 days?: No Exposure to someone with infectious disease in past 14 days?: No Do you have a fever (greater than 100.4 F or 38 C)?: No Have you tested positive for COVID-19?: No Exposed to someone with COVID-19 in past 14 days?: No Do you have a sore throat?: No Do you have a cough?: No Do you have any weakness?: No Do you have any diarrhea?: No Are you experiencing any unusual bleeding?: No Do you have any muscle aches/pain?: No Do you have any abdominal pain?: No Are you experiencing loss of taste or smell?: No Other Medical History Have you received the Flu Vaccine for this season: No Have you received the Pneumonia Vaccine: Yes <Roney Bo MD - Last Filed: 05/25/25 07:08> ROS Obtained: Yes All systems reviewed & no additional complaints except as documented Physical Exam <Roney Bo MD - Last Filed: 05/25/25 07:08> General General appearance: alert and in distress Head Head exam: atraumatic and normocephalic Eye Eye exam: Present normal appearance, PERRL and EOMI ENT ENT exam: Present normal oropharynx and normal external ear exam Neck Neck exam: Present normal inspection and full ROM Chest Chest inspection: Present normal inspection and symmetric chest wall rise; Absent tenderness Respiratory Respiratory exam: Present normal lung sounds bilaterally; Absent respiratory distress Cardiovascular Cardiovascular exam: Present regular rate and normal rhythm Abdominal Exam Abdominal exam: Present soft and tenderness (Suprapubic); Absent distention or guarding Extremities Exam Extremities exam: Present normal inspection; Absent edema or joint swelling Back Exam Back exam: Present normal inspection; Absent tenderness Neurological Exam Neurological exam: Present alert and oriented X3; Absent motor sensory deficit Psychiatric Psychiatric exam: Present normal affect and normal mood Skin Skin exam: Present warm, dry and normal color Lymphatic Lymphatic Findings: no adenopathy Medical Decision Making <Roney Bo MD - Last Filed: 05/25/25 07:08> Medical Records Medical records reviewed: Yes I reviewed the patient's medical records. Screening: Per USPSTF and CDC recommendations, given the prevalence of disease in our region, it is our hospital?s policy to screen for HIV and viral Hepatitis for all patients aged 18 and over and those with ongoing risk factors. Jay Inquiry Pt receiving controlled substance: No Jay was queried for this patient: No Vital Signs: 05/25/25 03:53 05/25/25 04:00 05/25/25 04:00 Temperature 98.2 F Temperature Source Oral Pulse Rate 81 74 Pulse Rate [Right] 79 Respiratory Rate 22 Blood Pressure 137/98 H 183/87 H Blood Pressure [Right Arm] 197/98 H Blood Pressure Mean Blood Pressure Mean [Right Arm] 131 02 Sat by Pulse Oximetry 98 99 98 Oxygen Delivery Method Room Air 05/25/25 04:30 05/25/25 05:00 05/25/25 05:30 Temperature Temperature Source Pulse Rate Pulse Rate [Right] Respiratory Rate Blood Pressure 140/66 152/76 H 141/68 H Blood Pressure [Right Arm] Blood Pressure Mean 109 101 92 Blood Pressure Mean [Right Arm] 02 Sat by Pulse Oximetry 99 Oxygen Delivery Method 05/25/25 06:00 05/25/25 06:30 05/25/25 07:00 Temperature Temperature Source Pulse Rate 78 Pulse Rate [Right] Respiratory Rate 16 Blood Pressure 145/68 H 134/63 144/65 H Blood Pressure [Right Arm] Blood Pressure Mean 93 86 91 Blood Pressure Mean [Right Arm] 02 Sat by Pulse Oximetry 98 Oxygen Delivery Method 05/25/25 07:31 05/25/25 08:41 05/25/25 09:00 Temperature Temperature Source Pulse Rate 55 L 56 L 54 L Pulse Rate [Right] Respiratory Rate Blood Pressure 158/78 H 138/76 158/70 H Blood Pressure [Right Arm] Blood Pressure Mean 89 Blood Pressure Mean [Right Arm] 02 Sat by Pulse Oximetry 96 96 97 Oxygen Delivery Method Room Air Room Air Lab Data Lab results reviewed: Yes I reviewed the patient's lab results. Lab Results 05/25/25 04:24: Urine Color Red, Urine Appearance Turbid, Urine pH 6.5, Ur Specific [place] 1.020, Urine Protein 3+ A, Urine Glucose (UA) 3+, Urine Ketones Negative, Urine Blood 3+ A, Urine Nitrate Negative, Urine Bilirubin Negative, Urine Urobilinogen 0.2, Ur Leukocyte Esterase Negative, Urine RBC Tntc 05/25/25 07:35: WBC 9.7, RBC 3.80 L, Hgb 11.8 L, Hct 35.7 L, MCV 93.9, MCH 31.1, MCHC 33.1, RDW 12.9, Plt Count 221, MPV 9.5, Neut % (Auto) 57.9, Lymph % (Auto) 25.3, [place] % (Auto) 9.1, Eos % (Auto) 6.9, Baso % (Auto) 0.6, Neut # (Auto) 5.6, Lymph # (Auto) 2.4, [place] # (Auto) 0.9, Eos # (Auto) 0.7 H, Baso # (Auto) 0.1, PT 10.7, INR 0.96, Sodium 139, Potassium 4.1, Chloride 110 H, Carbon Dioxide 26, Anion Gap 7.1, BUN 29 H, Creatinine 0.90, Estimated Creat Clear 107, Estimated GFR 84, Est GFR ( Amer) 102, Glucose 174 H, Calcium 9.3, Total Bilirubin 0.3, AST 32, ALT 29, Alkaline Phosphatase 88, Total Protein 6.5, Albumin 4.0, Globulin 2.5, Albumin/Globulin Ratio 1.6, Blood Type O Negative, Antibody Screen Negative 05/25/25 07:35 05/25/25 07:35 Orders (Tests/Meds): ED MEDICATIONS Discontinued Medications Generic Name Dose Route Start Last Admin Trade Name Christopher PRN Reason Stop Dose Admin Lidocaine HCl 1 ml 05/25/25 04:12 05/25/25 04:42 Lidocaine 2% Urojet 10ml TP 05/25/25 04:13 1 ml ONCE ONE Administration ORDERS Category Date Time Status Type and Screen Stat BBK 05/25/25 07:35 Completed CBC w/Auto Diff [Complete Blood Count Auto Diff] Stat Lab 05/25/25 07:35 Completed CMP [Comprehensive Metabolic Panel] Stat Lab 05/25/25 07:35 Completed PT INR [Prothrombin Time INR] Stat Lab 05/25/25 07:35 Completed UA [Urinalysis and Microscopic] Stat Lab 05/25/25 04:24 Completed Medical Decision Narrative: 64-year-old male with history of prostate surgery at the beginning of the month presents for clots and urinary obstruction. History was obtained via interactive discussion with patient. On arrival, patient is [afebrile, hemodynamically stable, satting appropriately, alert, oriented x4, GCS 15], moving all extremities spontaneously. Full physical exam performed and significant for suprapubic fullness and tenderness Differential includes but is not limited to urinary obstruction, anemia, UTI. Bladder scan was performed and shows bladder volume over 600. A three-way stopcock catheter was placed and continuous irrigation was performed. Urinalysis was obtained on initial urine which shows numerous RBCs and no other evidence of infection.. Patient was placed in ED observation status after urinary catheter insertion for continuous bladder irrigation and to assess need for admission or transfer. On re-evaluation, patient reports resolution in his pain. The continuous irrigation is clearing but not yet clear. Will continue and reassess. At this time care handed off to oncoming physician. <Geovany Garcia, - Last Filed: 05/25/25 09:18> Vital Signs: 05/25/25 03:53 05/25/25 04:00 05/25/25 04:00 Temperature 98.2 F Temperature Source Oral Pulse Rate 81 74 Pulse Rate [Right] 79 Respiratory Rate 22 Blood Pressure 137/98 H 183/87 H Blood Pressure [Right Arm] 197/98 H Blood Pressure Mean Blood Pressure Mean [Right Arm] 131 02 Sat by Pulse Oximetry 98 99 98 Oxygen Delivery Method Room Air 05/25/25 04:30 05/25/25 05:00 05/25/25 05:30 Temperature Temperature Source Pulse Rate Pulse Rate [Right] Respiratory Rate Blood Pressure 140/66 152/76 H 141/68 H Blood Pressure [Right Arm] Blood Pressure Mean 109 101 92 Blood Pressure Mean [Right Arm] 02 Sat by Pulse Oximetry 99 Oxygen Delivery Method 05/25/25 06:00 05/25/25 06:30 05/25/25 07:00 Temperature Temperature Source Pulse Rate 78 Pulse Rate [Right] Respiratory Rate 16 Blood Pressure 145/68 H 134/63 144/65 H Blood Pressure [Right Arm] Blood Pressure Mean 93 86 91 Blood Pressure Mean [Right Arm] 02 Sat by Pulse Oximetry 98 Oxygen Delivery Method 05/25/25 07:31 05/25/25 08:41 05/25/25 09:00 Temperature Temperature Source Pulse Rate 55 L 56 L 54 L Pulse Rate [Right] Respiratory Rate Blood Pressure 158/78 H 138/76 158/70 H Blood Pressure [Right Arm] Blood Pressure Mean 89 Blood Pressure Mean [Right Arm] 02 Sat by Pulse Oximetry 96 96 97 Oxygen Delivery Method Room Air Room Air Lab Data Lab Results 05/25/25 04:24: Urine Color Red, Urine Appearance Turbid, Urine pH 6.5, Ur Specific [place] 1.020, Urine Protein 3+ A, Urine Glucose (UA) 3+, Urine Ketones Negative, Urine Blood 3+ A, Urine Nitrate Negative, Urine Bilirubin Negative, Urine Urobilinogen 0.2, Ur Leukocyte Esterase Negative, Urine RBC Tntc 05/25/25 07:35: WBC 9.7, RBC 3.80 L, Hgb 11.8 L, Hct 35.7 L, MCV 93.9, MCH 31.1, MCHC 33.1, RDW 12.9, Plt Count 221, MPV 9.5, Neut % (Auto) 57.9, Lymph % (Auto) 25.3, [place] % (Auto) 9.1, Eos % (Auto) 6.9, Baso % (Auto) 0.6, Neut # (Auto) 5.6, Lymph # (Auto) 2.4, [place] # (Auto) 0.9, Eos # (Auto) 0.7 H, Baso # (Auto) 0.1, PT 10.7, INR 0.96, Sodium 139, Potassium 4.1, Chloride 110 H, Carbon Dioxide 26, Anion Gap 7.1, BUN 29 H, Creatinine 0.90, Estimated Creat Clear 107, Estimated GFR 84, Est GFR ( Amer) 102, Glucose 174 H, Calcium 9.3, Total Bilirubin 0.3, AST 32, ALT 29, Alkaline Phosphatase 88, Total Protein 6.5, Albumin 4.0, Globulin 2.5, Albumin/Globulin Ratio 1.6, Blood Type O Negative, Antibody Screen Negative Orders (Tests/Meds): ED MEDICATIONS Discontinued Medications Generic Name Dose Route Start Last Admin Trade Name Freq PRN Reason Stop Dose Admin Lidocaine HCl 1 ml 05/25/25 04:12 05/25/25 04:42 Lidocaine 2% Urojet 10ml TP 05/25/25 04:13 1 ml ONCE ONE Administration ORDERS Category Date Time Status Type and Screen Stat BBK 05/25/25 07:35 Completed CBC w/Auto Diff [Complete Blood Count Auto Diff] Stat Lab 05/25/25 07:35 Completed CMP [Comprehensive Metabolic Panel] Stat Lab 05/25/25 07:35 Completed PT INR [Prothrombin Time INR] Stat Lab 05/25/25 07:35 Completed UA [Urinalysis and Microscopic] Stat Lab 05/25/25 04:24 Completed Medical Decision Narrative: 64-year-old male with history of prostate surgery at the beginning of the month presents for clots and urinary obstruction. History was obtained via interactive discussion with patient. On arrival, patient is [afebrile, hemodynamically stable, satting appropriately, alert, oriented x4, GCS 15], moving all extremities spontaneously. Full physical exam performed and significant for suprapubic fullness and tenderness Differential includes but is not limited to urinary obstruction, anemia, UTI. Bladder scan was performed and shows bladder volume over 600. A three-way stopcock catheter was placed and continuous irrigation was performed. Urinalysis was obtained on initial urine which shows numerous RBCs and no other evidence of infection.. Patient was placed in ED observation status after urinary catheter insertion for continuous bladder irrigation and to assess need for admission or transfer. On re-evaluation, patient reports resolution in his pain. The continuous irrigation is clearing but not yet clear. Will continue and reassess. At this time care handed off to oncoming physician. Transfer of care note Dr. Garcia Received handoff from from the night physician at the 7:00 this morning. On my independent evaluation of the patient he tells me that he had a prostate resection at the [facility] performed [address] Maldonado. He tells me that he was instructed to the expect intermittent hematuria over the next 3 to 4 months. He states that he has had intermittent hematuria, however this morning he woke up with acute urinary retention after passing several large blood clots. At the time of shift change we had performed continuous bladder irrigation with 2400 mL of fluids. When I took over care of this patient we hung another bag of fluids and continued continuous bladder irrigation. The color of his urine is light pink twinged. I did perform hematologic labs on the patient including a CBC, CMP, and PT/INR. The patient's last hemoglobin on file was 13.8 back in February. His hemoglobin today is 11.8. I did have an interactive discussion with the patient's urologist at the [facility], Dr. Maldonado. She states that the last hemoglobin he had on file with [facility] was 12 prior to his procedure 1 month ago. This is reassuring that he has not significantly dropped his hemoglobin from his hematuria. Additionally, she is instructed us to perform manual irrigation of the bladder to see if we can remove any clots from the bladder. We did irrigate the bladder with several hundred cc's manually, and we did not get out any large blood clots. Dr. Maldonado stated that if we were able to pause continuous bladder irrigation and the patient was able to void on his own with the light pink urine that he is currently producing but she felt comfortable with him being discharged home and having him follow-up with her in clinic this week. Continuous bladder irrigation was paused over the duration of approximately 1 hour and the patient was able to void 100 cc spontaneously through the Main catheter. His urine remains light pink in color and does not seem to be darkening. Given the recommendations from Dr. Maldonado, we will discharge the patient home with a Main catheter in place and have him follow-up with Dr. Maldonado in the clinic this week as we discussed on the phone. Patient knowledges understanding of this plan and is amenable. At this time all questions have been answered and all parties are agreeable with the decision to discharge home Procedures <Roney Bo MD - Last Filed: 05/25/25 07:08> Risk/Benefits of Procedure(s) Were Explained: Yes Critical Care <Roney Bo MD - Last Filed: 05/25/25 07:08> Critical Care Time Critical Care Time: No
[2025-05-25 04:29] LABS: Microscopic, Urine URINE MICROSCOPIC (MICROSCOPIC)
[2025-05-25 04:38] LABS: Bilirubin,Urine Negative (Negative); Color,Urine RED (Yellow); Glucose,Urine (UA) 3+ (Negative); Ketones,Urine Negative (Negative); Leukocyte Esterase,Urine Negative (Negative); PH,Urine 6.5 (5.0-8.5); Protein,Urine 3+ (Negative); Specific Gravity, Urine 1.020 (1.005-1.030); Urobilinogen,Urine 0.2 EU/dl (0.2)
[2025-05-25 04:39] LABS: RBC,Urine TNTC #/hpf (0-3)
[2025-05-25] MEDS: LIDOCAINE 2% UROJET 10ML TP (04:42)
--- NOTE | 2025-05-25 06:01 | PC.NURSE ---
2400ml of fluid out of catheter emptied from bag.
--- NOTE | 2025-05-25 06:09 | PC.NURSE ---
bladder irrigation intiated at 0425 w/ 3000ml fluid bag per doctors order.
[2025-05-25 07:48] LABS: Hematocrit 35.7 % (42.0-52.0); Hemoglobin 11.8 g/dL (14.1-18.0); Immature Granulocytes % 0.2 %; Mean Corpuscular HGB Conc 33.1 g/dL (31.8-35.4); Mean Corpuscular Hemoglobin 31.1 pg (27.0-31.2); Mean Corpuscular Volume 93.9 fl (80-94); Nucleated Red Blood Cells % 0 %; Platelet Count 221 K/mm3 (142-424); Red Blood Count 3.80 M/mm3 (4.60-6.20); Red Cell Distribution Width-SD 44.3 fL; White Blood Count 9.7 K/mm3 (4.8-10.8)
[2025-05-25 08:00] LABS: Albumin Level 4.0 g/dl (3.5-5.0); Chloride 110 mmol/L (98-107); Sodium 139 mmol/L (136-145)
[2025-05-25 08:01] LABS: Potassium 4.1 mmoL/L (3.5-5.1)
[2025-05-25 08:03] LABS: Alanine Aminotransferase 29 U/L (12-78); Albumin/Globulin Ratio 1.6 (1.1-1.8); Alkaline Phosphatase 88 U/L (38-126); Anion Gap 7.1 mEq/L (5-15); Aspartate Amino Transferase 32 U/L (17-59); Bilirubin,Total 0.3 mg/dl (0.2-1.3); Blood Urea Nitrogen 29 mg/dl (9-20); Carbon Dioxide 26 mmol/L (22.0-30.0); Creatinine Clearance Estimated 107 mL/min (50-200); Creatinine,Serum 0.90 mg/dl (0.66-1.25); Estimated Glomerular Filt Rate 84 ml/min (>60); GFR (African American) 102 ML/MIN (>60); Globulin 2.5 g/dL (1.3-3.2); Total Protein,Serum 6.5 g/dl (6.3-8.2)
[2025-05-25 08:04] LABS: Calcium 9.3 mg/dl (8.4-10.2); Glucose 174 mg/dl (74-100)
[2025-05-25 08:05] LABS: INR 0.96 (0.9-1.1); Prothrombin Time 10.7 seconds (10.1-12.5)
--- NOTE | 2025-05-25 08:15 | PC.NURSE ---
murtaza bell is speaking to [place] at this time
--- NOTE | 2025-05-25 08:35 | PC.NURSE ---
pt voided 1400ml out of urine output. blood tinged but no clots noted. per er md he would like us to irrigate it manually. 120ml in and 80ml out. no clots passed turning irrigation. pt tolerated well and denies any discomfort. 3000ml bag of continuous irrigation in at this time. er md would like us to stop cbi for now and monitor pt's output.
--- NOTE | 2025-05-25 09:10 | PC.NURSE ---
100ml urine output out since clamping cbi. er md aware. no clots noted.
--- NOTE | 2025-05-25 09:18 | PC.NURSE ---
er at bedside
== END 2025-05-25 09:52 | disposition home or self-care (01) ==
PROVIDERS: Student in an Organized Health Care Education/Training Program; Emergency Provider Emergency Medicine; PCP Family Medicine
DX: R10.30 Lower abdominal pain, unspecified (principal); R31.0 Gross hematuria; E78.5 Hyperlipidemia, unspecified; I10 Essential (primary) hypertension; F17.210 Nicotine dependence, cigarettes, uncomplicated
CPT/HCPCS: 36415; 51702; 80053; 81001; 85025; 85610; 86850; 99284; 99285

== ENCOUNTER 2025-05-26 19:06 | Emergency (ER) | payer MEDICARE, SELFPAY ==
--- OUTSIDE RECORDS SUMMARY | 2025-04-27 05:38 | XMS_ITS | Encounter Summary ---
Author Organization Healthcare Address [address] [place] [address] Care Team Providers Care Credit Specialist Name Role Phone Ryne Bergman MD Primary Care Provider [phone] Abiola Loyola MANAGER SECONDARY Unavailable [phone] Aarti Maldonado MD Unavailable [phone] Reason for Visit * Auth/Cert (Routine) Specialty Diagnoses / Procedures Referred By Contac t Referred To Contact Diagnoses BPH (benign prostatic hyperplasia) BPH Procedures UT LASER ENUCLEATION PROSTATE W MORCELLATION ENUCLEATION, PROSTATE, TRANSURETHRAL, USING HOLMIUM LASER Aarti Maldonado MD [address] [address] Phone: tel: fax: [facility] [address] [place] [address] Phone: tel: Referral ID Status Reason Start Date Expiration Date Visits Re quested Visits Authorized [id number] 1 1 Encounter Details Date Type Department Care Team (Latest Contact Info) Description 04/27/2025 5:38 AM EDT - 04/28/2025 3:43 PM EDT Hospital Encounter [facility] [address] [place] [address] Aarti Maldonado MD [address] [address] BPH (benign prostatic hyperplasia) Discharge Disposition: Home or Self Care Social History Tobacco Use Types Packs/Day Years Used Date Smoking Tobacco: Some Days Cigarettes 0.3 1.5 Started: 03/27/2024 Passive Smoke Exposure: Current Smokeless [...] Sign Reading Time Taken Comments Blood Pressure 165/79 04/28/2025 11:34 AM EDT Carol Jacobo RN notified pt BP Pulse 53 04/28/2025 11:34 AM EDT Temperature 36.6 C (97.9 F) 04/28/2025 11:34 AM EDT Respiratory Rate 16 04/28/2025 11:3 4 AM EDT Oxygen Saturation 96% 04/28/2025 11: 34 AM EDT Inhaled Oxygen Concentration - - Weight 107 kg (234 lb 15.8 oz) 04/27/2025 4:22 PM EDT Height 175.3 cm (5' 9.02 ) 04/27/2025 4 :22 PM EDT Body Mass Index 34.69 04/27/2025 4:22 PM EDT documented in this encounter Functional Status * Calculated C-SSRS Risk Score (Lifetime/Recent) Answer Date of Assessment Author No Risk Indicated 04/28/2025 7:45 AM EDT Lucy Jacobo RN * Question Answer Date of Assessment Author 1. Wish to be (Past 1 Month) No 025 7:45 AM EDT Lucy Jacobo, MARZENA 2. Non-Specific Active Suici kwesi Thoughts (Past 1 Month) No 04/28/2025 7:45 AM EDT Ziggy Jacobo, MARZENA 6. Suicidal Behavior (Lifetime) No 7:45 AM EDT Lucy Jacobo, MARZENA documented as of this encounter Discharge Instructions * Discharge Instructions* Selena Saldivar DO - 04/28/2025 1:33 PM EDT [facility] DC instructions: Diagnosis: Benign prostate hyperplasia with difficulty urinating Procedure: Laser enucleation of the prostate (endoscopic enucleation of the prostate) Medications: Continue your home medications (including aspirin 81 mg if applicable). For pain: over the counter acetaminophen every 6 hours as needed. Please STOP TAKING medication for enlarged prostate (tamsulosin, alfuzosin, silodosin, terazosin, doxazosin, finasteride, dutasteride, etc). Pyridium (Phenazopyridine) for urethral pain and pain with urination. What to expect: Blood in your urine for up to 2-3 months Burning with urination for 1-2 months Extreme urgency to urinate for 2-3 months Need to wear urinary continence pads or diapers for 2-3 months Please do not lift anything heavier than 10 lbs (approxiately 1 gallon of milk) for 4 weeks. After this time you have no restrictions. Follow-up: We will have you return to clinic for follow-up in 1 month in the office. Please call the office or go to the emergency room if after regular business hours should you experience: Severe pain refractory to medications. Nausea and vomiting. Inability to urinate or catheter becomes clogged. Fever > 100.5 F or chills. documented in this encounter Medications at Time of Discharge albuterol 108 (90 Base) MCG/ACT inhaler INHALE 1 PUFF BY MOUTH EVERY 6 HOURS 11/18/2024 aspirin 81 MG EC tablet Take 1 tablet by mouth 1 time each day. 01/15/2025 BD Pen Needle Rosalia 2nd Gen 32G X 4 MM misc USE 1 PEN SUBCUTANEOUSLY THREE TIMES DAILY WITH INJECTABLE MEDICATION 01/07/2025 FLUoxetine (PROzac) 20 MG capsule Take 1 capsule by mouth 1 time each day. 11/23/2023 FLUoxetine (PROzac) 40 MG capsule Take 1 capsule by mouth daily. HumaLOG MIX 75/25 KWIKPEN (75-25) 100 UNIT/ML injection pen INJECT 60 UNITS SUBCUTANEOUSLY ONCE IN THE MORNING, 30 UNITS AT NOON, AND 60 UNITS IN THE EVENING Jardiance 10 MG Take 1 tablet by [...] TO CHECK GLUCOSE TWICE DAILY DIRECTED 11/02/2024 phenazopyridine (Pyridium) 200 MG tablet Take 1 tablet by mouth 3 times a day as needed for pain or discomfort (take with meals). 3 tablet 04/28/2025 pioglitazone (Actos) 45 MG tablet Take 1 tablet by mouth daily. potassium chloride CR (K-Tab) 20 MEQ ER tablet Take 1 tablet by mouth 1 time each day. 11/23/2023 rosuvastatin (Crestor) 10 MG tablet Take 2 tablets by mouth 1 time each day. 11/23/2023 topiramate (Topamax) 25 MG tablet Take 1 tablet by mouth 2 times a day. valsartan (Diovan) 320 MG tablet Take 1 tablet by mouth 1 time each day. 11/23/2023 acetaminophen (Tylenol) 500 MG tablet Take 2 tablets by mouth every 6 hours as needed for pain for up to 10 days. 80 tablet 04/28/2025 5 documented as of this encounter Miscellaneous Notes * Care Plan - Lucy Jacobo RN - 04/28/2025 1:51 PM EDT Problem: Adult Inpatient Plan of Care Goal: Plan of Care Review Outcome: Ongoing, Progressing Flowsheets Taken 04/28/2025 1347 by Lucy Jacobo RN Progress: improving Outcome Evaluation: Pt currently sitting up in chair denies any complaints at this time. V/S stable with no signs of respiratory distress present. No acute issues this shift. Taken 04/27/2025 1722 by Lianet Francis RN Plan of Care Reviewed With: patient spouse Problem: Adult Inpatient Plan of Care Goal: Patient-Specific Goal (Individualized) Outcome: Ongoing, Progressing Flowsheets (Taken 04/28/2025 0745) Patient/Family-Specific Goals (Include Timeframe): Pt will remain free from falls and/or injuries during this shift. Individualized Care Needs: Safety Anxieties, Fears or Concerns: Getting to go home Problem: Adult Inpatient Plan of Care Goal: Readiness for Transition of Care Intervention: Mutually Develop Transition Plan Flowsheets (Taken 04/28/2025 1348) Discharge Facility/Level of Care Needs: 1-Home or Self Care Equipment Needed After Discharge: none Equipment Currently Used at Home: none Current Outpatient/Agency/Support Group: other (see comments) Anticipated Changes Related to Illness: none Transportation Anticipated: car, drives self Outpatient/Agency/Support Group Needs: other (see comments) Transportation Concerns: none Current Discharge Risk: other (see comments) Concerns to be Addressed: no discharge needs identified Readmission Within the Last 30 Days: no previous admission in last 30 days Patient/Family Anticipated Services at Transition: none Patient/Family Anticipates Transition to: home with family Offered/Gave Vendor List: no Problem: Skin Injury Risk Increased Goal: Skin Health and Integrity Intervention: Promote and Optimize Oral Intake Flowsheets (Taken 04/28/2025 1347) Oral Nutrition Promotion: physical activity promoted Nutrition Interventions: food preferences provided Problem: Urinary Diversion Goal: Effective Urinary Elimination Intervention: Promote Optimal Urine Output Flowsheets (Taken 04/28/2025 1347) Urine Elimination Promotion (Post-Diversion): catheter patency maintained Note: CBI throughout morning. Problem: Fall Injury Risk Goal: Absence of Fall and Fall-Related Injury Intervention: Promote Injury-Free Environment Flowsheets (Taken 04/28/2025 0745) Safety Promotion/Fall Prevention: activity supervised assistive device/personal items within reach clutter-free environment maintained fall prevention program maintained * Bruce Aquino RN - 04/28/2025 1:50 PM EDT Images from the original note were not included. 58810 Preventing a Surgical Site Infection A risk of any surgery is an infection at the surgical site. The surgical site is a cut the surgeon makes in the skin to do the surgery. Surgical site infections can range in type. It may be a minor skin infection. Or it may be severe and include tissue under the skin or other organs. In some cases,a severe infection can cause . The information below tells you: ? About surgical site infections. ? What hospitals do to prevent them. ? How they?re treated if they do occur. ? What you can do to prevent an infection. Hand washing reduces the risk of infection. What causes a surgical site infection? Germs are everywhere. They?re on your skin, in the air, and on things you touch. Many germs are good. Some are harmful. Surgical site infections occur when harmful germs enter your body through the incision in your skin. Some infections are caused by germs that are in the air or on objects. But most are caused by germs found on and in your own body. Who is at risk for a surgical site infection? Anyone can have a surgical site infection. Your risk is higher if you: ? Are an older adult. ? Have a weak immune system. ? Have other health conditions such as diabetes. ? Take certain medicines, such as steroids. ? Are a smoker. ? Have certain types of surgery, such as abdominal surgery. ? Have poor nutrition. ? Are very overweight. ? Have a surgery that lasts longer than 2 hours. What are the symptoms of a surgical site infection? An infection often shows up as skin redness, pain, and swelling around the incision that gets worse. Later, a cloudy or greenish-yellow fluid may come from the incision. The fluid may smell bad. The incision may pull apart or open up. You are likely to have a fever and may feel very ill. Symptoms can appear at any time. They may happen from hours to weeks after surgery. Implants such as an artificial knee or hip can become infected at any time after the surgery. How is a surgical site infection treated? ? A surgical site infection is treated with antibiotics. The type of medicine you get will depend on what may be causing the infection. Most serious wound infections need wound care. In some cases, surgery may be needed on the infected wound. ? An infected skin wound may be reopened and cleaned. A deep wound may need to be packed with gauze. The gauze is changed often until the wound starts to heal from the inside out. Your health care provider will decide the best way to treat your infection. ? If an infection occurs where an implant is placed, the implant may be removed. ? If you have an infection deeper in your body, you may need surgery to treat it. What hospitals do to prevent surgical site infections Many hospitals take these steps to help prevent surgical site infections: ? Handwashing. Before the surgery, your surgeon and all surgery staff scrub their hands and arms with an antiseptic soap. ? Clean skin. The site where your incision is made is carefully cleaned with an antiseptic solution. ? Sterile clothing and drapes. The surgical team wears medical uniforms. These are known as scrub suits. They wear long-sleeved surgical gowns, masks, caps, shoe covers, and sterile gloves. Your bodyis fully covered with a large sterile sheet (sterile drape). There is an opening in the sheet wherethe incision is made. ? Clean air. Operating rooms have special air filters. They use positive pressure airflow to prevent unfiltered air from entering the room. ? Careful use of antibiotics. Antibiotics are given no more than 60 minutes before the incision is made. They are generally stopped within 24 hours after surgery. This depends on the type of surgery.This helps kill germs but prevents problems that can occur when antibiotics are taken longer. ? Controlled blood sugar levels. Your blood sugar level may rise. This can be because of the stressof the surgery. Your blood sugar level is watched closely to make sure it stays within a normal range. High blood sugar delays wound healing. This increases the risk of infection. ? Controlled body temperature. A kelxo-anlq-xjqsua temperature during or after surgery prevents oxygen from reaching the wound. This makes it harder for your body to fight infection. Hospitals may warm I.V. fluids, and provide warm-air blankets. Your temperature is watched throughout the surgery. ? Safe hair removal. Any hair that must be removed is clipped right before the incision, not shavedwith a razor. This prevents tiny nicks and cuts where germs can enter. ? Wound care. After surgery, a closed wound is covered with a sterile dressing for 1 to 2 days. Open wounds are packed with sterile gauze and covered with a sterile dressing. What you can do to prevent a surgical site infection ? Ask questions. Learn what your hospital is doing to prevent infection. ? If instructed, shower or bathe with plain soap the night before and the day of your surgery. Follow all instructions you're given. You may be asked to use a special cleanser that you don?t rinse off. ? If you smoke, stop as long as possible before and after the surgery. Ask your provider about waysto quit. ? Take antibiotics only when your provider tells you to. Using antibiotics when they?re not needed can create germs that are harder to kill. Finish the entire prescription of your antibiotics even ifyou feel better. ? Ask health care workers to clean their hands with plain soap and water or with an alcohol-based hand drafting technician before and after caring for you. Don?t be afraid to remind them. ? After surgery, eat healthy foods. Care for your incision as directed by your health care team. When to contact your doctor Contact your provider or seek medical care right away if: ? The pain at the surgical site gets worse. ? A red streak, worse redness, or puffiness appears near the incision. ? Yellowish, cloudy, or bad-smelling fluid leaks from the incision. ? Your stitches dissolve before the wound heals. ? You have a fever of 100.4?? F ( 38??C ) or higher, or as advised by your provider. ? You have a tired feeling that doesn?t go away. Last Reviewed Date: 2024 00:00:00 ?? [id number] [employer]. All rights reserved. This information is not intended as a substitute for professional medical care. Always follow your healthcare professional's instructions. * [facility] - Brcue Meredith RN - 04/28/2025 1:50 PM EDT Images from the original note were not included. 41230 Laser Prostatectomy You have an enlarged prostate gland. This is also called benign prostatic hyperplasia (BPH). BPH isnot cancer, but it can cause problems with urination. To ease your symptoms, your healthcare provider may advise laser prostatectomy . This procedure uses a laser (concentrated light energy). The laser removes excess prostate tissue from around the urethra. The urethra is the tube that carries urine from the bladder out of the body. The surgery lets urine flow more freely through the urethra by removing the pressure of excess tissue. Types of prostate laser surgery The type of laser surgery your healthcare provider will do may depend on your health, the size of your prostate, and the type of tools available. The different types of prostate laser surgery are: ? Photoselective vaporization of the prostate (PVP). The laser is used to melt away (vaporize) the extra prostate tissue. ? Holmium laser ablation of the prostate. This type of surgery is similar to PVP. But it uses a different kind of laser. ? Holmium laser enucleation of the prostate (HoLEP). In this procedure, the laser cuts and removes extra tissue. A tool cuts the tissue into small pieces. This makes them easier to remove. ? Thulium laser enucleation of the prostate . This type of surgery is similar to HoLEP, but it usesa different kind of laser. Possible risks and side effects of laser prostatectomy All procedures have risks. Some possible risks of this procedure include: ? Bleeding ? Infection ? Urgency and burning when you pee ? Blood clots ? Scarring or narrowing of the urethra. This can cause trouble peeing. ? Only some relief of symptoms ? Erectile dysfunction (rare) ? Loss of bladder control (very rare) ? Loss of ejaculation Getting ready for the procedure Your healthcare team will give you detailed instructions on how to get ready for the procedure. Be sure to follow them. ? You will be asked to read and sign a form consenting to the surgery. Be sure to read the entire document. Have all of your questions answered before signing it. ? Tell your healthcare team about all medicines you take. This includes prescription and azba-oar-aspxhyq medicines, vitamins, herbs, and other supplements. It also includes any blood thinners, such as warfarin, clopidogrel, or daily aspirin. You may need to stop taking some or all of them before butterfield rgery. ? Follow any directions you're given for not eating or drinking before your procedure. ? When you arrive for the procedure, you'll have an IV (intravenous) line placed. This gives you fluids and medicines during the procedure. ? You'll be given medicine to keep you from feeling pain (anesthesia) before the procedure. You mayhave one or more of the following: o Local anesthesia. Your bladder and urethra are numbed. o Regional anesthesia. Your body below the waist is numbed. You may also be given medicine to make you drowsy. o General anesthesia. You are sleeping comfortably during the entire procedure. During the procedure Your healthcare provider can help explain the details of your surgery. These details depend on the type of laser surgery that will be done. In general, you can expect the following: ? The procedure itself often takes less than 1 hour. ? A thin, tube-like telescope (cystoscope) is put through the opening in your penis and into your urethra. This tool lets your provider see your urethra and your prostate. They are seen either through the cystoscope or on a screen. ? The laser is put through the cystoscope. The laser is then used to destroy the extra prostate tissue. ? You may have a tube (urinary catheter) to help your bladder drain urine for a short time after the procedure. It?s removed when it?s no longer needed. After the procedure You may go home the same day after your surgery. Or you may stay a night in the hospital for observation. An adult friend or family member should drive you home. To get the best results from the procedure, follow your healthcare provider's instructions. Keep your follow-up appointments. Your prostate will likely be sore at first. This will get better as you heal. Here are some things you can expect: ? You may be sent home with a catheter to drain urine from your bladder. If so, you may wear a leg bag until it's no longer needed. The catheter will allow the area to heal. It will help prevent painful urination. ? Your provider may also prescribe antibiotics to prevent infection and pain medicine to ease any discomfort. ? In about 1 week, you?ll visit your healthcare provider to have your catheter removed. If swellingstill makes it hard to pee, the catheter may be left in longer. After the catheter is removed, you may need to pee more often. This is normal and should get better with time. ? For the first few weeks after your procedure, you may notice that your urine is cloudy. Or you may have blood or blood clots in your urine. This is normal while your body rids itself of the treatedtissue. These symptoms may start to get better during the first few weeks. But it may take a few months before they go away. Your healthcare provider can tell you when you can have sex again and whenyou can go back to work. ? You also may be told to not lift anything over 10 pounds. And to not bend over or strain to lift things from the ground. ? Drink plenty of fluids to help flush out your bladder. Getting back to sex You may be glad to know that BPH and its treatments rarely cause problems with sex. You may find that you have retrograde ejaculation. This happens when semen goes into the bladder instead of the urethra during ejaculation. Retrograde ejaculation is common after procedures for BPH. But even if thisdoes occur, orgasm shouldn?t feel any different than it did before the procedure. And it shouldn't cause any health problems or affect your sexual function. If you notice any problems with sex, talk with your healthcare provider. Help may be available. When to call the healthcare provider Contact your healthcare provider right away if: ? You have a fever of 100.4??F (38??C) or higher, or as directed by your provider ? You have excessive bleeding ? You have pain not relieved by medicines ? You notice that no urine is draining from the catheter, or the catheter falls out ? You have a frequent or very strong urge to pee ? You?re not able to pee, or notice a decrease in urine flow Last Reviewed Date: 2023 00:00:00 ?? [id number] [employer]. All rights reserved. This information is not intended as a substitute for professional medical care. Always follow your healthcare professional's instructions. * [facility] - Bruce Meredith RN - 04/28/2025 1:49 PM EDT Images from the original note were not included. [id number] Benign Prostatic Hyperplasia The prostate is a small gland in men that makes a fluid that goes into semen. As you age, the prostate grows. If it becomes too big, it may cause problems with urination. This condition is called benign prostatic hyperplasia (BPH). BPH is not a cancer. Symptoms of BPH BPH is common in men older than age 60. That?s because the prostate grows bigger during a man?s life. As it grows, it presses against the urethra. The urethra is the tube that carries urine out of your body from your bladder through your penis. Your bladder may also get weak as you age. It may not empty completely after you urinate. Men with BPH may have these symptoms: ? The urge to frequently urinate, especially at night ? Leaking or dribbling of urine ? A weak stream of urine ? Not able to urinate, or having trouble starting to urinate Who is at risk of developing BPH? You're more likely to develop BPH if you: ? Are age 40 or older. The chance of getting BPH increases as you get older. ? Have a family history of BPH. ? Drink alcohol excessively. ? Are a large person. ? Have type 2 diabetes. ? Don't get enough physical activity. Diagnosing BPH Because BPH can lead to keeping urine in your bladder, it can hurt your bladder and kidneys. It canalso lead to bladder stones, blood in the urine, and urinary tract infections. If you think you mayhave BPH, talk with your health care provider. Early treatment can prevent problems. Providers often decide to treat BPH based only on your risk factors and symptoms. Several tests mayhelp confirm a diagnosis of BPH. These include: ? Digital rectal exam. During this procedure, your provider puts a gloved, greased (lubricated) finger into your rectum to check the size of your prostate. ? PSA blood test. This rules out prostate cancer as a cause of urinary symptoms if you have symptoms of BPH. ? Imaging tests. Transrectal ultrasound is a procedure where the regulatory technician inserts a transducer slightly larger than a pen into the rectum next to the prostate. The ultrasound image shows the size of the prostate and any abnormalities, such as tumors. This test can't reliably diagnose prostate canc er. X-rays and other imaging tests can find problems in your kidneys or bladder. ? Cystoscopy. This test uses a flexible tube with a camera (called a scope). The scope is passed upthe urethra to look inside your bladder. It is done to rule out bladder cancer if there are red blood cells in your urine. ? Urine flow study. This test uses a special device to see how fast urine leaves your body. ? Prostate ultrasound. This test uses sound waves to view the size and the inside of the prostate gland. Treating BPH If you have mild symptoms, you may not need treatment. You may be able to control your BPH with lifestyle changes. Some men feel better if they limit or don't have alcohol and caffeinated drinks, such as coffee. Not drinking too many fluids at night can help. Increasing your physical activity may ease symptoms, too. Kegel exercises may help. They make the pelvic muscle stronger to prevent urine from leaking. Contract your pelvic muscles as if you were to stop or slow down the flow of urine. Hold for 10 seconds. Repeat at least 5 times. Do the exercise 3 to 5 times each day. Some medicines can make BPH symptoms worse. These include medicines for congestion, allergies, and depression. Medicines that increase your urine flow (diuretics or water pills) can also make BPH symptoms worse. If you take any of these, talk with your provider. You may need to take another medicine or change how much you take. BPH symptoms often get worse as the prostate grows. At some point, you may need treatment. Your provider may prescribe medicine to shrink the prostate or stop its growth or to relax muscles to improve urine flow. Other treatments can make the urethra wider to let urine flow more easily. There are also some minimally invasive methods to remove prostate tissue. If your BPH is severe, your provider may advise surgery. Surgery takes out enlarged parts of the prostate gland. You and your provider can discuss the best choice for you based on your age, overall health, and other factors. BPH and prostate cancer BPH and prostate cancer share some symptoms and may happen at the same time. That?s why it?s important to talk with your provider about your symptoms. Men with BPH don't have cancer. But they may have higher levels of prostate-specific antigen (PSA). A higher PSA level may also be a sign of prostate cancer. Certain tests help tell BPH from prostate cancer. They include prostate ultrasound and biopsy. Last Reviewed Date: 2024 00:00:00 ?? [id number] [employer]. All rights reserved. This information is not intended as a substitute for professional medical care. Always follow your healthcare professional's instructions. * Discharge Summary - Selena Saldivar DO - 04/28/2025 1:33 PM EDT Images from the original note were not included. Hospitalization Admit Date/Time: 04/27/2025 5:38 AM Admitting Attending: Aarti Maldonado Discharge Date: 04/28/25 Discharge Attending Physician: Aarti Maldonado MD PCP name and Address: Ryne Bergman MD [address] [facility] [facility] [address] Referring provider name and address: No referring provider defined for this encounter. Chief Concern, Brief History of Present Illness, and Hospital Course Ramsey Castrejon is a 64 y.o. male with PMH of BPH/LUTS, type 2 diabetes, hypertension and history of urinary retention previously needing CIC who presented to [facility] with BPH for surgical intervention. They were taken to the operating room on 04/27/25 for elective HoLEP. The patient tolerated the p rocedure well and was subsequently extubated and transferred to the PACU for recovery. After recovery, the patient was transferred to the floor for management with CBI. The patient's hospital course was uncomplicated and it was felt that the patient had reached maximal benefit from hospitalization.They were deemed appropriate for discharge to home. On the day of discharge the patient's pain was controlled on oral medications, they were ambulating, voiding appropriately , passing flatus, and tolerating oral intake. The patient was discharged on 04/28/25 to home and will have a follow-up visitscheduled with Dr. Maldonado. Surgeries and Procedures ENUCLEATION, PROSTATE, TRANSURETHRAL, USING HOLMIUM LASER (N/A) Medication List .. BD Pen Needle Rosalia 2nd Gen 32G X 4 MM misc Generic drug: Insulin Pen Needle USE 1 PEN SUBCUTANEOUSLY THREE TIMES DAILY WITH INJECTABLE MEDICATION . albuterol 108 (90 Base) MCG/ACT inhaler INHALE 1 PUFF BY MOUTH EVERY 6 HOURS aspirin 81 MG EC tablet Take 1 tablet by mouth 1 time each day. finasteride 5 MG tablet Commonly known as: Proscar Take 1 tablet by mouth 1 time each day. * FLUoxetine 40 MG capsule Commonly known as: PROzac Take 1 capsule by mouth daily. * FLUoxetine 20 MG capsule Commonly known as: PROzac Take 1 capsule by mouth 1 time each day. HumaLOG MIX 75/25 KWIKPEN (75-25) 100 UNIT/ML injection pen Generic drug: insulin lispro protamine-insulin lispro INJECT 60 UNITS SUBCUTANEOUSLY ONCE IN THE MORNING, 30 UNITS AT NOON, AND 60 UNITS IN THE EVENING Jardiance 10 MG Generic drug: empagliflozin Take 1 tablet by mouth daily. metFORMIN XR 750 MG 24 hr tablet Commonly known as: Glucophage-XR Take 1 tablet by mouth 1 time each day with dinner. metoprolol succinate XL 25 MG 24 hr tablet Commonly known as: Toprol-XL Take 1 tablet by mouth daily. NIFEdipine CC 60 MG 24 hr tablet Commonly known as: Adalat CC Take 1 tablet by mouth daily before breakfast. Do not crush, chew, or split. OneTouch Verio test strip Generic drug: glucose blood USE 1 STRIP TO CHECK GLUCOSE TWICE DAILY DIRECTED pioglitazone 45 MG tablet Commonly known as: Actos Take 1 tablet by mouth daily. potassium chloride CR 20 MEQ ER tablet Commonly known as: K-Tab Take 1 tablet by mouth 1 time each day. pramipexole 1 MG tablet Commonly known as: Mirapex Take 1 tablet (1 mg) by mouth 1 (one) time each day. rosuvastatin 10 MG tablet Commonly known as: Crestor Take 2 tablets by mouth 1 time each day. tamsulosin 0.4 MG 24 hr capsule Commonly known as: Flomax Take 1 capsule by mouth 2 times a day. topiramate 25 MG tablet Commonly known as: Topamax Take 1 tablet by mouth 2 times a day. valsartan 320 MG tablet Commonly known as: Diovan Take 1 tablet by mouth 1 time each day. * This list has 2 medication(s) that are the same as other medications prescribed for you. Read thedirections carefully, and ask your doctor or other care provider to review them with you. Discharge Diagnosis Medical Problems Active and Resolved Hospital Problems Hospital * (Principal) BPH with urinary obstruction Post Discharge Instructions Diagnosis: Benign prostate hyperplasia with difficulty urinating Procedure: Laser enucleation of the prostate (endoscopic enucleation of the prostate) Medications: Continue your home medications (including aspirin 81 mg if applicable). For pain: over the counter acetaminophen every 6 hours as needed. Please STOP TAKING medication for enlarged prostate (tamsulosin, alfuzosin, silodosin, terazosin, doxazosin, finasteride, dutasteride, etc). Pyridium (Phenazopyridine) for urethral pain and pain with urination. What to expect: Blood in your urine for up to 2-3 months Burning with urination for 1-2 months Extreme urgency to urinate for 2-3 months Need to wear urinary continence pads or diapers for 2-3 months Please do not lift anything heavier than 10 lbs (approxiately 1 gallon of milk) for 4 weeks. After this time you have no restrictions. Follow-up: We will have you return to clinic for follow-up in 1 month in the office. Please call the office or go to the emergency room if after regular business hours should you experience: Severe pain refractory to medications. Nausea and vomiting. Inability to urinate or catheter becomes clogged. Fever > 100.5 F or chills. Outpatient Follow-Up No future appointments. Test Results Pending At Discharge Pending Labs Order Current Status Surgical Pathology Exam In process Pertinent Physical Exam At Time of Discharge GEN: NAD HEENT: NCAT, EOMI RESP: Equal bilateral chest rise, normal work of breathing CV: Regular rate, appears well perfused ABD: Nondistended : main removed due to appropriate pink/clear output EXT: No gross deformities MSK: Full ROM in BL UE NEURO: No focal deficits, alert and oriented PSYCH: Normal mood and affect Discharge Disposition/Condition Disposition: Home Condition: Stable (s/sx potential problems absent or manageable) I spent >30 minutes of patient care and instruction time in preparation for this discharge. Selena Saldivar DO General Surgery PGY 1 Cosigned by Aarti Maldonado MD at 04/29/2025 7:32 AM EDT Associated attestation - Aarti Maldonado MD - 04/29/2025 7:32 AM EDT I saw and evaluated the patient with the resident/fellow. I discussed the case with the resident/fellow and agree with the findings and plan as documented. * Hospital Course - Maryam Estrada - 04/28/2025 8:05 AM EDT Ramsey Castrejon is a 64 y.o. male with PMH of BPH/LUTS, type 2 diabetes, hypertension and history of urinary retention previously needing CIC who presented to [facility] with BPH for surgical intervention. They were taken to the operating room on 04/27/25 for elective HoLEP. The patient tolerated the p rocedure well and was subsequently extubated and transferred to the PACU for recovery. After recovery, the patient was transferred to the floor for management with CBI. The patient's hospital course was uncomplicated and it was felt that the patient had reached maximal benefit from hospitalization.They were deemed appropriate for discharge to home. On the day of discharge the patient's pain was controlled on oral medications, they were ambulating, voiding appropriately , passing flatus, and tolerating oral intake. The patient was discharged on 04/28/25 to home and will have a follow-up visitscheduled with Dr. Maldonado. * Nursing Note - Eugenia Lassiter RN - 04/28/2025 7:09 AM EDT CBI turned back on per order of Urology. Will reround and re evaluate around 8 a,m. * Care Plan - Eugenia Lassiter RN - 04/27/2025 9:06 PM EDT Problem: Adult Inpatient Plan of Care Goal: Plan of Care Review Flowsheets Taken 04/27/20252103 by Eugenia Lassiter RN Progress: improving Taken 04/27/2025 1722 by Lianet Francis, RN Plan of Care Reviewed With: patient spouse Taken 04/27/2025 1200 by Dianna Nazario RN Outcome Evaluation: patient's pain level is acceptable to the patient prior to d/c from the pacu goal met. Problem: Adult Inpatient Plan of Care Goal: Patient-Specific Goal (Individualized) Flowsheets (Taken 04/27/20251999) Patient/Family-Specific Goals (Include Timeframe): pt educated on Continuous bladder irrigation Individualized Care Needs: Education Anxieties, Fears or Concerns: all this coming out of me Problem: Adult Inpatient Plan of Care Goal: Absence of Hospital-Acquired Illness or Injury Outcome: Ongoing, Progressing Intervention: Identify and Manage Fall Risk Flowsheets (Taken 04/27/20252099) Safety Promotion/Fall Prevention: activity supervised clutter-free environment maintained fall prevention program maintained lighting adjusted nonskid shoes/slippers when out of bed room organization consistent safety round/check completed toileting scheduled Intervention: Prevent Skin Injury Flowsheets (Taken 04/27/20252099) Body Position: legs elevated weight shifting Intervention: Prevent and Manage VTE (Venous Thromboembolism) Risk Flowsheets (Taken 04/27/20252099) VTE Prevention/Management: bilateral lower extremity SCDs (sequential compression devices) on Problem: Adult Inpatient Plan of Care Goal: Absence of Hospital-Acquired Illness or Injury Intervention: Identify and Manage Fall Risk Flowsheets (Taken 04/27/20252099) Safety Promotion/Fall Prevention: activity supervised clutter-free environment maintained fall prevention program maintained lighting adjusted nonskid shoes/slippers when out of bed room organization consistent safety round/check completed toileting scheduled Problem: Adult Inpatient Plan of Care Goal: Absence of Hospital-Acquired Illness or Injury Intervention: Prevent Skin Injury Flowsheets (Taken 04/27/20252099) Body Position: legs elevated weight shifting Problem: Adult Inpatient Plan of Care Goal: Absence of Hospital-Acquired Illness or Injury Intervention: Prevent and Manage VTE (Venous Thromboembolism) Risk Flowsheets (Taken 04/27/20252099) VTE Prevention/Management: bilateral lower extremity SCDs (sequential compression devices) on Problem: Adult Inpatient Plan of Care Goal: Optimal Comfort and Wellbeing Intervention: Monitor Pain and Promote Comfort Flowsheets (Taken 04/27/20252099) Pain Management Interventions: medication (see MAR) Intervention: Provide Person-Centered Care Flowsheets (Taken 04/27/20252099) Trust Relationship/Rapport: care explained choices provided emotional support provided empathic listening provided questions answered questions encouraged reassurance provided thoughts/feelings acknowledged Problem: Adult Inpatient Plan of Care Goal: Optimal Comfort and Wellbeing Intervention: Monitor Pain and Promote Comfort Flowsheets (Taken 04/27/20252099) Pain Management Interventions: medication (see MAR) Problem: Adult Inpatient Plan of Care Goal: Optimal Comfort and Wellbeing Intervention: Provide Person-Centered Care Flowsheets (Taken 04/27/2025 2100) Trust Relationship/Rapport: care explained choices provided emotional support provided empathic listening provided questions answered questions encouraged reassurance provided thoughts/feelings acknowledged * Care Plan - Lianet Francis RN - 04/27/2025 5:23 PM EDT Problem: Adult Inpatient Plan of Care Goal: Plan of Care Review Outcome: Ongoing, Progressing Flowsheets (Taken 04/27/20251721) Progress: improving Plan of Care Reviewed With: patient spouse Goal: Patient-Specific Goal (Individualized) Outcome: Ongoing, Progressing Flowsheets (Taken 04/27/20251721) Patient/Family-Specific Goals (Include Timeframe): Patient will be free of fall and injury Individualized Care Needs: Pain Anxieties, Fears or Concerns: Catheter Goal: Absence of Hospital-Acquired Illness or Injury Outcome: Ongoing, Progressing Goal: Optimal Comfort and Wellbeing Outcome: Ongoing, Progressing Goal: Readiness for Transition of Care Outcome: Ongoing, Progressing Problem: Skin Injury Risk Increased Goal: Skin Health and Integrity Outcome: Ongoing, Progressing Intervention: Optimize Skin Protection Flowsheets (Taken 04/27/20251721) Activity Management: activity adjusted per tolerance Pressure Reduction Techniques: frequent weight shift encouraged Head of Bed (HOB) Positioning: HOB at 30 degrees Problem: Urinary Diversion Goal: Psychosocial Adjustment Initiation Outcome: Ongoing, Progressing Intervention: Support Psychosocial Response to Surgery Flowsheets (Taken 04/27/20251721) Supportive Measures: active listening utilized Goal: Absence of Bleeding Outcome: Ongoing, Progressing Goal: Effective Bowel Elimination Outcome: Ongoing, Progressing Goal: Fluid and Electrolyte Balance Outcome: Ongoing, Progressing Intervention: Monitor and Manage Fluid and Electrolyte Balance Flowsheets (Taken 04/27/20251721) Fluid/Electrolyte Management: fluids adjusted fluids provided Goal: Absence of Infection Signs and Symptoms Outcome: Ongoing, Progressing Goal: Anesthesia/Sedation Recovery Outcome: Ongoing, Progressing Goal: Optimal Pain Control and Function Outcome: Ongoing, Progressing Goal: Nausea and Vomiting Relief Outcome: Ongoing, Progressing Goal: Optimal Stoma Healing and Function Outcome: Ongoing, Progressing Goal: Effective Oxygenation and Ventilation Outcome: Ongoing, Progressing Goal: Effective Urinary Elimination Outcome: Ongoing, Progressing * Anesthesia PACU Signout - Mingo Harry DO - 04/27/2025 1:00 PM EDT Patient: Ramsey Castrejon Anesthesia Type: general Vitals Value Taken Time BP 127/63 04/27/25 12:45 Temp 37 ??C (98.6 ??F) 04/27/25 12:00 Pulse 53 04/27/25 12:58 Resp 22 04/27/25 12:58 SpO2 97 % 04/27/25 12:58 Vitals shown include unfiled device data. Anesthesia PACU Signout Patient location during evaluation: PACU Patient participation: complete - patient participated Level of consciousness: baseline and awake Pain management: adequate (pain score 0-3) Airway patency: natural airway Hydration status: acceptable PONV: none Cardiovascular status: acceptable and hemodynamically stable Respiratory status: acceptable, spontaneous ventilation, unassisted and nonlabored ventilation Discharge Disposition: admit to inpatient unit Comments: Patient is s/p Procedure(s) and Anesthesia Type: * ENUCLEATION, PROSTATE, TRANSURETHRAL, USING HOLMIUM LASER - General. Patient remains HDS on 2L NC, neurologically appropriate, pain is controlled, and tolerating PO w/oN/V. Patient is appropriate for discharge from PACU to inpatient unit for continued postop care. Cosigned by Abdulkadir Olsen MD at 04/27/2025 1:51 PM EDT Associated attestation - Abdulkadir Olsen MD - 04/27/2025 1:51 PM EDT Signature only. * Op Note - Aarti Maldonado MD - 04/27/2025 7:57 AM EDT HoLEP OP Note: Operative Report SURGEON: Aarti Maldonado MD Sales Order Clerk: DO Jay Gómez MD SURGICAL TEAM: Motorboat Mechanic Inboard: Robbie Soliz RN Relief Motorboat Mechanic Inboard: Wayne Cotton RN Relief Scrub: Danni Verde Scrub Person: Ina Clarke DATE OF SURGERY : 04/27/2025 PREOPERATIVE DIAGNOSIS: Pre-op Diagnosis * BPH (benign prostatic hyperplasia) [N40.0] POSTOPERATIVE DIAGNOSIS: Post-op Diagnosis * BPH (benign prostatic hyperplasia) [N40.0] PROCEDURE: ENUCLEATION, PROSTATE, TRANSURETHRAL, USING HOLMIUM LASER INDICATION FOR PROCEDURE: 64 y.o. male with with BPH/LUTS, type 2 diabetes, hypertension and history of urinary retention previously needing CIC who presents with an enlarged prostate on maximum medical therapy. He presents today for HoLEP. 150 g gland. ANESTHESIA: General IMPLANTS: Nothing was implanted during the procedure OPERATIVE DETAILS Estimated Blood Loss: 100 cc Intraoperative Fluids: See anesthesia records Blood/Blood Products Transfused: None Specimens: Order Name Source Comment Collection Info Order Time CBC W/O DIFFERENTIAL Blood, Venous 04/27/2025 10:24 AM Release to patient in [facility] Immediate BASIC METABOLIC PANEL, PLASMA Blood, Venous 04/27/2025 10:24 AM Release to patient in [facility] Immediate SURGICAL PATHOLOGY EXAM Prostate Pre-op diagnosis: BPH Collected By: Aarti Maldonado MD 04/27/2025 9:42 AM Results Release Delay - 72 Hours 72 Hours PROCEDURE: After informed consent was obtained, the patient was taken to the operating room and administered ageneral anesthetic. The patient was placed in Lithotomy position. SCDs were placed on bilateral lower extremities. The patient was prepped and draped in the usual sterile fashion for cystoscopy. All members of the operating team were in agreement for the timeout regarding the procedure. The patientwas administered antibiotics prior to the start of the procedure. The urethra was dilated with sequential dilators from 20 - 30 Palestinian. The 28 Palestinian Storz continuous flow resectoscope sheath was inserted then inner sheath and obturator were removed. The laser stabilizing sheath and lens were inserted. The bladder and posterior urethra were examined in a systematic fashion revealing bilobar. We were able to visualize bilateral ureteral orifices. We used the 550micrometer fiber with the following pulse settin J 50 Hz. We proceeded with prostate enucleation using early apical release with complete en bloc technique. We began by performing an early apicalrelease. We incised the left and right apical tissue lateral to the verumontanum and posteriorly. We did this proximally in the urethra to the verumontanum, preserving the verumontanum. We kept the sphincter in place and incised circumferentially to create the incision proximal to the sphincter. Alex gradually developed the dissection within the border of the incision until we could find prostate capsule circumferentially. We were able to continue to develop the plane circumferentially untilwe entered the bladder anteriorly through the vertical bladder neck fibers. We dissected tissue laterally as well to develop a wide anterior-lateral plane bilaterally. We did not need to separate thetwo lobes, and were able to complete an entirely en bloc enucleation by developing the lateral planes then the posterior plane. We then spent time to perform hemostasis of the prostate fossa. At this point we transitioned to the nephroscope and Piranha to complete morcellation. At the conclusion of the procedure the prostatic urethra appeared to be open and hemostatic. The bilateral ureteral orifices were visualized and in tact at the conclusion of enucleation and morcellation. The scope was removed and a 22 Palestinian 3-way Main catheter was inserted with continuous bladder irrigation running. 50 mL of fluid was placed in the catheter balloon. The catheter was placed on traction. The patient was awakened from anesthesia and transported to the recovery area in stable condition. He tolerated the procedure without complication. . He will remain in the hospital tonight for continuous bladder irrigation (CBI) and plan for voidingtrial in the hospital tomorrow. Operative findings: Bilobar enlarged prostate 154.40 kJ total energy 79 minutes enucleation 9 minutes hemostasis 9 minutes morcellation Complications: none Condition on Discharge from the operating room was stable Aarti Maldonado MD Date: 04/27/2025 Time: 10:27 AM * H&P - Jay Dyer MD - 04/27/2025 5:57 AM EDT Images from the original note were not included. Subjective Chief complaint Enlarged prostate History Of Present Illness Ramsey Castrejon is a 64 y.o. male with BPH/LUTS, type 2 diabetes, hypertension and history of urinaryretention previously needing CIC who presents with an enlarged prostate on maximum medical therapy.He presents today for HoLEP. 150 g gland. Medical/Surgical/Social/Family History Past Medical History[1] Surgical History[2] Social History[3] Family History[4] Travel History Relevant International Travel History: Travel Screening No screening recorded since 04/26/25 0538 Travel History Travel since 03/27/25 No documented travel since 03/27/25 Immunizations Not reviewed Allergies Morphine and Oxybutynin Medications Current Medications[5] Objective Review of Systems 14 point review of systems was obtained and is negative except for as above in HPI. Physical Exam Gen: obese, no acute distress Skin: Warm, dry, no obvious rashes or excoriations HEENT: Normocephalic, atraumatic, EOMI CV: Patient appears well perfused with regular rate, HDS Pulm: Normal rate, normal effort, symmetrical chest rise, no accessory muscle use Abd: Soft, nontender to palpation, nondistended MSK: No obvious limb deformities or swelling Neuro: Alert, answers questions appropriately, no obvious focal deficits Psych: Cooperative, normal mood and congruent affect Last Recorded Vitals There were no vitals taken for this visit. Results Review {Vanishing Link Review Results :[id number] I have reviewed the latest lab and imaging results. === 02/10/24 === CT OUTSIDE IMAGES [facility] 04/19/25: NGTD Lab Results Component Value Date CREATININE 0.84 01/10/2025 Assessment & Plan To OR today for holmium laser enucleation of the prostate and all other indicated procedures Preop cefazolin Jay Dyer MD Department of Urology PGY4 [1] Past Medical History: Diagnosis Date Benign prostatic hyperplasia Diabetes mellitus (CMS/HCC) Hypertension Urinary tract infection 2023 [2] Past Surgical History: Procedure Laterality Date CARPAL TUNNEL RELEASE Left CARPAL TUNNEL RELEASE Right CHOLECYSTECTOMY 2013 CYSTOSCOPY 2023 GALLBLADDER SURGERY NECK SURGERY TONSILLECTOMY ULNAR NERVE REPAIR Left [3] Social History Tobacco Use Smoking status: Some Days Current packs/day: 0.25 Average packs/day: 0.3 packs/day for 1.4 years (0.3 ttl pk-yrs) Types: Cigarettes Start date: 03/27/2024 Passive exposure: Current Smokeless tobacco: Never Tobacco comments: Working on quiting Vaping Use Vaping status: Former Substance Use Topics Alcohol use: Not Currently Alcohol/week: 1.0 standard drink of alcohol Comment: Very rarely drink Drug use: Never [4] Family History Problem Relation Name Age of Onset Hypertension Mother Tawnya Castrejon Kidney disease Mother Tawnya [place] Cancer Father [place] Anesthesia problems Neg Hx Malig Hyperthermia Neg Hx [5] No current facility-administered medications for this encounter. Cosigned by Aarti Maldonado MD at 04/27/2025 9:46 AM EDT Associated attestation - Aarti Maldonado MD - 04/27/2025 9:46 AM EDT I saw and evaluated the patient. I discussed the case with the resident/fellow and agree with the findings and plan as documented. documented in this encounter Plan of Treatment Upcoming Encounters Date Type Department Care Team ([facility] st Contact Info) Description 06/20/2025 12:30 PM EDT Office Visit Medical Office Building Urology [address], [address] [place] [address] Aarti Maldonaod MD [address] [place] [address] documented as of this encounter Procedures Procedure Name Priority Date/Time Associated Diagnosis Comments CBC W/O DIFFERENTIAL Routine 04/28/2025 4:46 AM EDT POCT GLUCOSE METER UNSOLICITED RESULTS Routine 04/27/2025 7:19 PM EDT POCT GLUCOSE METER UNSOLICITED RESULTS Routine 04/27/2025 5:17 PM EDT CBC W/O DIFFERENTIAL STAT 04/27/2025 2:13 PM EDT BASIC METABOLIC PANEL, PLASMA STAT 04/27/2025 2:13 PM EDT POCT GLUCOSE METER UNSOLICITED RESULTS Routine 04/27/2025 10:07 AM EDT SURGICAL PATHOLOGY EXAM Routine 04/27/2025 9:42 AM EDT BPH (benign prostatic hyperplasia) UT LASER ENUCLEATION PROSTATE W MORCELLATION 04/27/2025 7:14 AM EDT BPH (benign prostatic hyperplasia) Special Needs Will need FORTEC - masterpulse holmium laser, piranha morcellator and storz scope set. POCT GLUCOSE METER UNSOLICITED RESULTS Routine 04/27/2025 6:47 AM EDT documented in this encounter Results * (ABNORMAL) Hemogram (CBC) (04/28/2025 4:46 AM EDT) WBC Count 9.03 3.70 - 10.30 10*3/uL LAB HEMATOLOGY METHOD 04/28/2025 5:03 AM EDT [facility] RBC Count 3.88(L) 4.60 - 6.10 10*6/uL LAB HEMATOLOGY METHOD 04/28/2025 5:03 AM EDT [facility] HGB 11.7(L) 13.7 - 17.5 g/dL LAB HEMATOLOGY METHOD 04/28/2025 5:03 AM EDT [facility] HCT 37.4(L) 40.0 - 51.0 % LAB HEMATOLOGY METHOD 04/28/2025 5:03 AM EDT [facility] Platelet Count 135(L) 155 - 369 10*3/uL LAB HEMATOLOGY METHOD 04/28/2025 5:03 AM EDT [facility] MCV 96 79 - 98 fL LAB HEMATOLOGY METHOD 04/28/2025 5:03 AM EDT [facility] MCH 30.2 26.0 - 32.0 pg LAB HEMATOLOGY METHOD 04/28/2025 5:03 AM EDT [facility] MCHC 31.3 30.7 - 35.5 g/dL LAB HEMATOLOGY METHOD 04/28/2025 5:03 AM EDT [facility] RDW 13.1 11.5 - 14.5 % LAB HEMATOLOGY METHOD 04/28/2025 5:03 AM EDT [facility] MPV 10.2 8.8 - 12.5 fL LAB HEMATOLOGY METHOD 04/28/2025 5:03 AM EDT [facility] nRBC 0.0 <=0.0 per 100 WBCs LAB HEMATOLOGY METHOD 04/28/2025 5:03 AM EDT [facility] Blood Venous blood specimen / Unknown Venipuncture / Unknown 04/28/2025 4:46 AM EDT 04/28/2025 4:56 AM EDT us Aarti Maldonado MD LAB BLOOD ORDERABLES Final R esult Performing Organization Address City/[facility]/ZIP Co de Phone Number [facility] [address] [place] [address] * (ABNORMAL) POCT glucose meter (04/27/2025 7:19 PM EDT) POCT Glucose 267(H) 74 - 99 mg/dL 04/27/2025 7:21 PM EDT [facility] Comment:Accuracy of a glucos e result obtained from a capillary whole blood specimen relies upon adequate, non-compromised capillary blood flow. If the capillary glucose result is not consistent with the patient's clinical signs and symptoms, glucose testing should be repeated with either an arterial or venous sample on the glucometer or sent to the main labortory for testing. Comment 04/27/2025 7:21 PM EDT [facility] Strategies Analyst ID Moise Warren 04/27/20 7:21 PM EDT [facility] Device ID [id number] 04/27/2025 7:21 PM EDT [facility] Specimen Type POC Capillary 04/27/2025 7:21 PM EDT [facility] Blood Capillary blood specimen / Unknown 04/27/2025 7:19 PM EDT 04/27/2025 7:21 PM EDT us Aarti Maldonado MD LAB POINT OF CARE TE ST DOCKED DEVICE UNSOLICITED RESULTS Final Result Performing Organization Address City/[facility]/ZIP Co de Phone Number [facility] [address] [place] [address] * (ABNORMAL) POCT glucose meter (04/27/2025 5:17 PM EDT) [facility] POCT Glucose 235(H) 74 - 99 mg/dL 04/27/2025 5:18 PM EDT [facility] Comment:Accuracy of a glucos e result obtained from a capillary whole blood specimen relies upon adequate, non-compromised capillary blood flow. If the capillary glucose result is not consistent with the patient's clinical signs and symptoms, glucose testing should be repeated with either an arterial or venous sample on the glucometer or sent to the main labortory for testing. Comment 04/27/2025 5:18 PM EDT [facility] Strategies Analyst ID Cara Lopez 5:18 PM EDT [facility] Device ID [id number] 04/27/2025 5:18 PM EDT [facility] Specimen Type POC Capillary 04/27/2025 5:18 PM EDT [facility] Blood Capillary blood specimen / Unknown 04/27/2025 5:17 PM EDT 04/27/2025 5:18 PM EDT us Aarti Maldonado MD LAB POINT OF CARE TE ST DOCKED DEVICE UNSOLICITED RESULTS Final Result Performing Organization Address City/State/[facility] Co de Phone Number [facility] [address] [place] [address] * (ABNORMAL) Basic metabolic panel (04/27/2025 2:13 PM EDT) [facility] Glucose, Plasma 220(H) 74 - 99 mg/dL 04/27/2025 3:08 PM EDT [facility] BUN, Plasma 18 8 - 23 mg/dL 04/27/2025 3:08 PM EDT [facility] Creatinine, Plasma 0.84 0.70 - 1.20 mg/dL 04/27/2025 3:08 PM EDT [facility] BUN/Creatinine Ratio 21 04/27/2025 3:08 PM EDT [facility] Sodium, Plasma 139 136 - 145 mmol/L 04/27/2025 3:08 PM EDT [facility] Potassium, Plasma 4.0 3.6 - 4.9 mmol/L 04/27/2025 3:08 PM EDT [facility] Chloride, Plasma 105 97 - 107 mmol/L 04/27/2025 3:08 PM EDT [facility] CO2, Plasma 22 22 - 29 mmol/L 04/27/2025 3:08 PM EDT [facility] Anion Gap 12 6 - 16 mmol/L 04/27/2025 3:08 PM EDT [facility] Total Calcium, Plasma 8.7(L) 8.9 - 10.2 mg/dL 04/27/2025 3:08 PM EDT [facility] eGFRcr 96.2 mL/min/1.7 3m*2 04/27/2025 3:08 PM EDT [facility] Comment:Reported eGFRcr in m L/min/1.73m2 is based the CKD-EPI 2020 equation that does not use a race coefficient. Blood Venous blood specimen / Unknown Venipuncture / Unknown 04/27/2025 2:13 PM EDT 04/27/2025 2:39 PM EDT us Aarti Maldonado MD LAB BLOOD ORDERABLES Final R esult [facility] [address] [place] [address] * (ABNORMAL) CBC W/O Differential (04/27/2025 2:13 PM EDT) WBC Count 8.39 3.70 - 10.30 10*3/uL LAB HEMATOLOGY METHOD 04/27/2025 2:47 PM EDT [facility] RBC Count 3.93(L) 4.60 - 6.10 10*6/uL LAB HEMATOLOGY METHOD 04/27/2025 2:47 PM EDT [facility] HGB 12.1(L) 13.7 - 17.5 g/dL LAB HEMATOLOGY METHOD 04/27/2025 2:47 PM EDT [facility] HCT 37.2(L) 40.0 - 51.0 % LAB HEMATOLOGY METHOD 04/27/2025 2:47 PM EDT [facility] Platelet Count 185 155 - 369 10*3/uL LAB HEMATOLOGY METHOD 04/27/2025 2:47 PM EDT [facility] MCV 95 79 - 98 fL LAB HEMATOLOGY METHOD 04/27/2025 2:47 PM EDT [facility] MCH 30.8 26.0 - 32.0 pg LAB HEMATOLOGY METHOD 04/27/2025 2:47 PM EDT [facility] MCHC 32.5 30.7 - 35.5 g/dL LAB HEMATOLOGY METHOD 04/27/2025 2:47 PM EDT [facility] RDW 13.0 11.5 - 14.5 % LAB HEMATOLOGY METHOD 04/27/2025 2:47 PM EDT [facility] MPV 10.0 8.8 - 12.5 fL LAB HEMATOLOGY METHOD 04/27/2025 2:47 PM EDT [facility] nRBC 0.0 <=0.0 per 100 WBCs LAB HEMATOLOGY METHOD 04/27/2025 2:47 PM EDT [facility] Blood Venous blood specimen / Unknown Venipuncture / Unknown 04/27/2025 2:13 PM EDT 04/27/2025 2:39 PM EDT us Aarti Maldonado MD LAB BLOOD ORDERABLES Final R esult [facility] [address] [place] [address] * (ABNORMAL) POCT glucose meter (04/27/2025 10:07 AM EDT) [facility] POCT Glucose 159(H) 74 - 99 mg/dL 04/27/2025 10:09 AM EDT [facility] Comment:Accuracy of a glucos e result obtained from a capillary whole blood specimen relies upon adequate, non-compromised capillary blood flow. If the capillary glucose result is not consistent with the patient's clinical signs and symptoms, glucose testing should be repeated with either an arterial or venous sample on the glucometer or sent to the main labortory for testing. Comment 04/27/2025 10:09 AM EDT [facility] Strategies Analyst ID Pan Wilkins 025 10:09 AM EDT [facility] Device ID [id number] 04/27/2025 10:09 AM EDT [facility] Specimen Type POC Capillary 04/27/2025 10:09 AM EDT [facility] Blood Capillary blood specimen / Unknown 04/27/2025 10:07 AM EDT 04/27/2025 10:09 AM EDT us Aarti Maldonado MD LAB POINT OF CARE TE ST DOCKED DEVICE UNSOLICITED RESULTS Final Result [facility] [address] [place] [address] * Surgical Pathology Exam (04/27/2025 9:42 AM EDT) Case Report Surgical Pathology Case: [id number] Authorizing Provider: Aarti Maldonado MD Collected: 04/27/2025 0942 Ordering Location: [facility] OPERATING RO[facility] Received: 04/27/2025 1010 Pathologist: Kary Bruce MD Specimen: Prostate, morcellated prostate 04/30/2025 10:26 AM EDT [facility] Final Diagnosis A. MORCELLATED PROSTATE, TRANSURETHRAL ENUCLEATION: - BENIGN NODULAR GLANDULAR AND STROMAL HYPERPLASIA. 04/30/2025 10:26 AM EDT [facility] at 1026 EDT Clinical Information BPH 04/30/2025 10:26 AM EDT [facility] Gross Description A. MORCELLATED PROSTATE Received in formalin labeled morcellated prostate , is an aggregate of pink-lobo to lobo-white soft tissue fragments weighing 32.0 g and measuring 5.8 x 5.5 x 2.6 cm. Tandem Mill Sticker sections are submitted in cassettes A1 to A12. Cold Time: 28m [place] 04/30/2025 10:26 AM EDT [facility] Tissue Prostate / Unknown 9:42 AM EDT 04/27/2025 10:10 AM EDT Comment:Pre-op diagnosis: BPH us Aarti Maldonado MD LAB PATHOLOGY ORDERABLES Fin al Result Performing Organization Address City/[facility]/ZIP Co de Phone Number [facility] [address] [place] [address] * (ABNORMAL) POCT glucose meter (04/27/2025 6:47 AM EDT) POCT Glucose 151(H) 74 - 99 mg/dL 04/27/2025 6:49 AM EDT [facility] Comment:Accuracy of a glucos e result obtained from a capillary whole blood specimen relies upon adequate, non-compromised capillary blood flow. If the capillary glucose result is not consistent with the patient's clinical signs and symptoms, glucose testing should be repeated with either an arterial or venous sample on the glucometer or sent to the main labortory for testing. Comment 04/27/2025 6:49 AM EDT [facility] Strategies Analyst ID Angeli Darden 025 6:49 AM EDT [facility] Device ID [id number] 04/27/2025 6:49 AM EDT [facility] Specimen Type POC Venous 04/27/2025 6:49 AM EDT [facility] Blood Venous blood specimen / Unknown 04/27/2025 6:47 AM EDT 04/27/2025 6:49 AM EDT us Aarti Maldonado MD LAB POINT OF CARE TE ST DOCKED DEVICE UNSOLICITED RESULTS Final Result Performing Organization Address City/State/[facility] Co de Phone Number [facility] [address] [place] [id number] documented in this encounter Visit Diagnoses Diagnosis BPH with urinary obstruction- Primary Hypertrophy of prostate with urinary obstruction and other lower urinary tract symptoms (LUTS) BPH (benign prostatic hyperplasia) Unspecified hyperplasia of prostate without urinary obstruction and other lower urinary tract symptoms (LUTS) documented in this encounter Admitting Diagnoses Diagnosis BPH with urinary obstruction Hypertrophy of prostate with urinary obstruction and other lower urinary tract symptoms (LUTS) documented in this encounter Administered Medications Inactive Administered Medications - up to 3 most recent administrations Medication Order MAR Action Action Date Dose Rate Site acetaminophen (Tylenol) tablet 1,000 mg 1,000 mg, Oral, Once as needed, 1 dose, Starting on Wed04/27/25 at 1003, Until Wed04/27/25 at 1012, Routine, Recovery (Phase I only), pain score of >1 out of 10 Given 04/27/2025 10:12 AM EDT 1,000 mg acetaminophen (Tylenol) tablet 1,000 mg 1,000 mg, Oral, Every 6 hours scheduled, First dose on Wed04/27/25 at 1200, Until Discontinued, Routine, Recovery(Phase II-Outpatient)/On Unit(Inpatient) Given 04/28/2025 10:38 AM EDT 1,000 mg Given 04/27/2025 9:12 PM EDT 1,000 mg Given 04/27/2025 5:01 PM EDT 1,000 mg albuterol 108 (90 Base) MCG/ACT inhaler 2 puff 2 puff, Inhalation, Every 4 hours PRN, Starting on Wed04/27/25 at 1730, Until 04/28/25 at 1743, Routine, Recovery(Phase II-Outpatient)/On Unit(Inpatient), wheezing, shortness of breath dextrose 10 % (D10W) bolus 125 mL 125 mL, Intravenous, Every 15 min PRN, Starting on Wed04/27/25 at 1025, Until 04/28/25 at 1743, Administer over 15 Minutes, Routine, low blood sugar BG 51-89 mg/dL dextrose 10 % (D10W) bolus 250 mL 250 mL, Intravenous, Every 15 min PRN, Starting on Wed04/27/25 at 1025, Until 04/28/25 at 1743, Administer over 15 Minutes, Routine, PRN low blood sugar BG =/<50 mg/dL fentaNYL (Sublimaze) injection 25 mcg 25 mcg, Intravenous, Every 5 min PRN, 2 doses, Starting on Wed04/27/25 at 1006, Until Wed04/27/25 at 1024, Routine, Recovery (Phase I only), moderate pain, Pain score 3-8 out of 10 Given 04/27/2025 10:24 AM EDT 25 mcg Given 04/27/2025 10:18 AM EDT 25 mcg fentaNYL (Sublimaze) injection 25 mcg 25 mcg, Intravenous, Every 15 min PRN, 2 doses, Starting on Wed04/27/25 at 1204, Until Wed04/27/25 at 1205, Routine, Recovery (Phase I only), moderate pain, severe pain, CPOT score 3-9 Given 04/27/2025 12:05 PM EDT 25 mcg Given 04/27/2025 12:00 PM EDT 25 mcg finasteride (Proscar) tablet 5 mg 5 mg, Oral, Daily, First dose on Wed04/27/25 at 1115, Until Discontinued, Routine, Recovery(Phase II-Outpatient)/On Unit(Inpatient) Given 04/28/2025 8:34 AM EDT 5 mg Given 04/27/2025 1:03 PM EDT 5 mg FLUoxetine (PROzac) capsule 20 mg 20 mg, Oral, Daily, First dose on Wed04/27/25 at 1115, Until Discontinued, Routine, Recovery(Phase II-Outpatient)/On Unit(Inpatient) Given 04/28/2025 8:33 AM EDT 20 mg Given 04/27/2025 1:03 PM EDT 20 mg glucagon (human recombinant) injection 1 mg 1 mg, Intramuscular, Every 15 min PRN, Starting on Wed04/27/25 at 1025, Until 04/28/25 at 1743, Routine, Recovery(Phase II-Outpatient)/On Unit(Inpatient), low blood sugar per Hypoglycemia Prevention and Treatment protocol glucose (Glutose) 40 % oral gel 15-30 grams of glucose 15-30 grams of glucose, Sublingual, Every 15 min PRN, Starting on Wed04/27/25 at 1025, Until 04/28/25 at 1743, Routine, Recovery(Phase II-Outpatient)/On Unit(Inpatient), low blood sugar, per Hypoglycemia Prevention and Treatment protocol heparin (porcine) injection 5,000 Units 5,000 Units, Subcutaneous, Every 8 hours scheduled, First dose on Wed04/27/25 at 1400, Until Discontinued, Routine, Recovery(Phase II-Outpatient)/On Unit(Inpatient)Indications:Pr ophylaxis of Venous Thromboembolism Given 04/28/2025 2:31 PM EDT 5,000 Units Left Lower Abdomen Given 04/28/2025 5:17 AM EDT 5,000 Units R ight Upper Arm (Back) Given 04/27/2025 9:13 PM EDT 5,000 Units R ight Upper Arm (Back) insulin lispro (Admelog) 100 units/mL injection - Correction - Standard Dose 0-5 Units, Subcutaneous, 3 times daily with meals, First dose on Wed04/27/25 at 1230, Until Discontinued, Routine, Recovery(Phase II-Outpatient)/On Unit(Inpatient) Given 04/28/2025 12:42 PM EDT 2 Units Right Upper Arm (Jules k) Given 04/28/2025 8:34 AM EDT 2 Units Ri ght Lower Abdomen Given 04/27/2025 5:33 PM EDT 2 Units Le ft Upper Arm (Back) insulin lispro (Admelog) injection - Correction - Nighttime Dose 0-3 Units, Subcutaneous, 2 times nightly (2100 & 0300), First dose on Wed04/27/25 at 2100, Until Discontinued, Routine, Recovery(Phase II-Outpatient)/On Unit(Inpatient) Given 04/27/2025 9:12 PM EDT 1 Units Right Upper Arm (Back) lactated Ringer's infusion 20 mL/hr, Intravenous, Once, 1 dose, On Wed04/27/25 at 1100, Routine New Bag 04/27/2025 11:00 AM EDT 20 mL/hr 20 mL/hr lactated Ringer's infusion 84 mL/hr, Intravenous, Continuous, Starting on Wed04/27/25 at 1115, Until 04/28/25 at 1743, Routine Rate/Dose Verify 04/28/2025 4:00 AM EDT 84 mL/hr 84 mL/hr Rate/Dose Verify 04/28/2025 12:00 AM EDT 84 mL/hr 84 mL/ hr Rate/Dose Verify 04/27/2025 8:35 PM EDT 84 mL/hr 84 mL/h r lidocaine (Uro-Jet) 2 % gel 1 Application Urethral, As needed, Starting on Wed04/27/25 at 1021, Until 04/28/25 at 1743, Routine, mild pain, Adult Male Difficult Insertion Protocol-use with Coude Catheter insertion melatonin tablet 3 mg 3 mg, Oral, Nightly, First dose on Wed04/27/25 at 2100, Until Discontinued, Routine, Recovery(Phase II-Outpatient)/On Unit(Inpatient) Given 04/27/2025 8:23 PM EDT 3 mg melatonin tablet 3 mg 3 mg, Oral, Once as needed, 1 dose, Starting on Wed04/27/25 at 2314, Until Wed04/27/25 at 2325, Routine, Sleep Given 04/27/2025 11:25 PM EDT 3 mg methocarbamol (Robaxin) tablet 500 mg 500 mg, Oral, 4 times daily PRN, Starting on Wed04/27/25 at 1817, Until 04/28/25 at 0400, Routine, muscle spasms Given 04/27/2025 11:19 PM EDT 500 mg Given 04/27/2025 6:34 PM EDT 500 mg metoprolol succinate XL (Toprol-XL) 24 hr tablet 25 mg 25 mg, Oral, Daily, First dose on 04/28/25 at 0900, Until Discontinued, Routine, Recovery(Phase II-Outpatient)/On Unit(Inpatient) Given 04/28/2025 8:34 AM EDT 25 mg mupirocin (Bactroban) 2 % ointment 1 Application Each Nostril, 2 times daily, 10 doses, First dose on Wed04/27/25 at 2100, Last dose on Wed05/02/25 at 0900, Routine Given 04/28/2025 8:34 AM EDT 1 Applic ation Given 04/27/2025 8:23 PM EDT 1 Application oxyCODONE (Roxicodone) immediate release tablet 10 mg 10 mg, Oral, Once as needed, 2 doses, Starting on Wed04/27/25 at 1003, Until Wed04/27/25 at 1455, Routine, Recovery (Phase I only), pain score of 6-8 out of 10 Given 04/27/2025 2:55 PM EDT 10 mg Given 04/27/2025 10:15 AM EDT 10 mg phenazopyridine (Pyridium) tablet 200 mg 200 mg, Oral, 3 times daily with meals, 6 doses, First dose (after last modification) on Wed04/27/25 at 1545, Last dose on Wed04/29/25 at 1230, Routine, Recovery(Phase II-Outpatient)/On Unit(Inpatient) Given 04/28/2025 12:42 PM EDT 200 mg Given 04/28/2025 8:34 AM EDT 200 mg Given 04/27/2025 2:53 PM EDT 200 mg Povidone-Iodine 5 % swab solution Apply externally, 1 Hour Prior To Procedure, 1 dose, On Wed04/27/25 at 0700, Routine Given 04/27/2025 6:47 AM EDT rosuvastatin (Crestor) tablet 20 mg 20 mg, Oral, Nightly, First dose on Wed04/27/25 at 2100, Until Discontinued, Recovery(Phase II-Outpatient)/On Unit(Inpatient) Given 04/27/2025 8:23 PM EDT 20 mg senna-docusate (Gita-Colace) 8.6-50 MG per tablet 1 tablet 1 tablet, Oral, 2 times daily, First dose on Wed04/27/25 at 1115, Until Discontinued, Routine, Recovery(Phase II-Outpatient)/On Unit(Inpatient) Given 04/28/2025 8:33 AM EDT 1 tablet Given 04/27/2025 8:23 PM EDT 1 tablet sodium chloride 0.9 % flush 1 mL 1 mL, Intravenous, Every 8 hours PRN, Starting on Wed04/27/25 at 0607, Until Wed04/27/25 at 0959, Routine, Holding - Preprocedure, line care Given 04/27/2025 6:47 AM EDT 1 mL sodium chloride 0.9 % flush 10 mL 10 mL, Intravenous, Every 12 hours, First dose on Wed04/27/25 at 1115, Until Discontinued, Routine, Recovery(Phase II-Outpatient)/On Unit(Inpatient) Given 04/28/2025 10:38 AM EDT 10 mL Given 04/27/2025 11:15 AM EDT 10 mL sodium chloride 0.9 % flush 10 mL 10 mL, Intravenous, As needed, Starting on Wed04/27/25 at 1020, Until 04/28/25 at 1743, Routine, Recovery(Phase II-Outpatient)/On Unit(Inpatient), line care topiramate (Topamax) tablet 25 mg 25 mg, Oral, 2 times daily, First dose on Wed04/27/25 at 1115, Until Discontinued, Routine, Recovery(Phase II-Outpatient)/On Unit(Inpatient) Given 04/28/2025 8:34 AM EDT 25 mg Given 04/27/2025 8:23 PM EDT 25 mg Given 04/27/2025 1:03 PM EDT 25 mg documented in this encounter Active and Recently Administered Medications Times are shown in EDT. Scheduled Medication Order 04/26/2025 04/27/2025 04/28/2025 acetaminophen (Tylenol) tablet 1,000 mg 1,000 mg, Oral, Every 6 hours scheduled, First dose on Wed04/27/25 at 1200, Until Discontinued, Routine, Recovery(Phase II-Outpatient)/On Unit(Inpatient) 1210 (Canceled Entry - Provider: Vida Richter, FrancesD - Comment: Given in the OR at 10:12)1701 (Given - Provider: Lianet Francis RN)2112 (Given - Provider: Eugenia Lassiter RN) 0351 (Not Given - Provider: Eugenia Lassiter RN - Reason: Patient/family refused - Comment: Denies pain or need)1038 (Given - Provider: Lucy Jacobo RN)1600 (Canceled Entry - Provider: Automatic Discharge Provider - Comment: Automatically canceled at discontinue of medication order) ceFAZolin (Ancef) injection 2 g (COMPLETED) 2 g, Intravenous, Once, 1 dose, On Wed04/27/25 at 0715, Routine, Holding - Preprocedure 0750 (Given - Provider: Philippe Connelly) finasteride (Proscar) tablet 5 mg 5 mg, Oral, Daily, First dose on Wed04/27/25 at 1115, Until Discontinued, Routine, Recovery(Phase II-Outpatient)/On Unit(Inpatient) 1303 (Given - Provider: Dianna Nazario RN) 0834 (Given - Provider: Lucy Jacobo RN) FLUoxetine (PROzac) capsule 20 mg 20 mg, Oral, Daily, First dose on Wed04/27/25 at 1115, Until Discontinued, Routine, Recovery(Phase II-Outpatient)/On Unit(Inpatient) 1303 (Given - Provider: Dianna Nazario RN) 0833 (Given - Provider: Lucy Jacobo RN) heparin (porcine) injection 5,000 Units 5,000 Units, Subcutaneous, Every 8 hours scheduled, First dose on Wed04/27/25 at 1400, Until Discontinued, Routine, Recovery(Phase II-Outpatient)/On Unit(Inpatient) 1303 (Given - Provider: Dianna Nazario RN)2113 (Given - Provider: Eugenia Lassiter RN) 0517 (Given - Provider: Eugenia Lassiter RN)1431 (Given - Provider: Lucy Jacobo RN) insulin lispro (Admelog) 100 units/mL injection - Correction - Standard Dose 0-5 Units, Subcutaneous, 3 times daily with meals, First dose on Wed04/27/25 at 1230, Until Discontinued, Routine, Recovery(Phase II-Outpatient)/On Unit(Inpatient) 1303 (Given - Provider: Dianna Nazario RN)1503 (Given - Provider: Dianna Nazario RN - Comment: pt eating late lunch)1733 (Given - Provider: Lianet Francis RN) 0834 (Given - Provider: Lucy Jacobo RN - Comment: 200 per dexcom)1242 (Given - Provider: Lucy Jacobo RN)1730 (Canceled Entry - Provider: Automatic Discharge Provider - Comment: Automatically canceled at discontinue of medication order) insulin lispro (Admelog) injection - Correction - Nighttime Dose 0-3 Units, Subcutaneous, 2 times nightly (2099 & 0300), First dose on Wed04/27/25 at 2100, Until Discontinued, Routine, Recovery(Phase II-Outpatient)/On Unit(Inpatient) 2111 (Given - Provider: Eugenia Lassiter RN) 032 (Not Given - Provider: Eugenia Lassiter RN - Reason: Order parameters not met - Comment: 237) lactated Ringer's infusion (COMPLETED) 20 mL/hr, Intravenous, Once, 1 dose, On Wed04/27/25 at 1100, Routine 1100 (New Bag - Provider: Dianna Nazario RN) melatonin tablet 3 mg 3 mg, Oral, Nightly, First dose on Wed04/27/25 at 2100, Until Discontinued, Routine, Recovery(Phase II-Outpatient)/On Unit(Inpatient) 2022 (Given - Provider: Eugenia Lassiter RN) metoprolol succinate XL (Toprol-XL) 24 hr tablet 25 mg 25 mg, Oral, Daily, First dose on Wed04/28/25 at 0900, Until Discontinued, Routine, Recovery(Phase II-Outpatient)/On Unit(Inpatient) 0834 (Given - Provid er: Lucy Jacobo RN) mupirocin (Bactroban) 2 % ointment 1 Application Each Nostril, 2 times daily, 10 doses, First dose on Wed04/27/25 at 2100, Last dose on Wed05/02/25 at 0900, Routine 2022 (Given - Provider: Eugenia Lassiter RN) 0834 (Given - Provider: Lucy Jacobo RN) phenazopyridine (Pyridium) tablet 200 mg 200 mg, Oral, 3 times daily with meals, 6 doses, First dose (after last modification) on Wed04/27/25 at 1545, Last dose on Wed04/29/25 at 1230, Routine, Recovery(Phase II-Outpatient)/On Unit(Inpatient) 1453 (Given - Provider: Dianna Nazario RN) 0834 (Given - Provider: Lucy Jacobo, MARZENA)1242 (Given - Provider: Lucy Jacobo RN)1500 (Canceled Entry - Provider: Automatic Discharge Provider - Comment: Automatically canceled at discontinue of medication order) Povidone-Iodine 5 % swab solution (COMPLETED) Apply externally, 1 Hour Prior To Procedure, 1 dose, On Wed04/27/25 at 0700, Routine 0647 (Given - Provider: Angeli Darden RN) rosuvastatin (Crestor) tablet 20 mg 20 mg, Oral, Nightly, First dose on Wed04/27/25 at 2100, Until Discontinued, Recovery(Phase II-Outpatient)/On Unit(Inpatient) 2022 (Given - Provider: Eugenia Lassiter RN) senna-docusate (Gita-Colace) 8.6-50 MG per tablet 1 tablet 1 tablet, Oral, 2 times daily, First dose on Wed04/27/25 at 1115, Until Discontinued, Routine, Recovery(Phase II-Outpatient)/On Unit(Inpatient) 1115 (Not Given - Provider: Dianna Nazario RN - Reason: Patient/family refused)2022 (Given - Provider: Eugenia Lassiter RN) 0833 (Given - Provider: Lucy Jacobo RN) sodium chloride 0.9 % flush 10 mL(Linked Group 1) 10 mL, Intravenous, Every 12 hours, First dose on Wed04/27/25 at 1115, Until Discontinued, Routine, Recovery(Phase II-Outpatient)/On Unit(Inpatient) 1115 (Given - Provider: Dianna Nazario RN)2252 (Not Given - Provider: Eugenia Lassiter RN - Reason: Order changed - Comment: continuous fluids infusing) 1038 (Given - Provider: Lucy Jacobo RN) topiramate (Topamax) tablet 25 mg 25 mg, Oral, 2 times daily, First dose on Wed04/27/25 at 1115, Until Discontinued, Routine, Recovery(Phase II-Outpatient)/On Unit(Inpatient) 1303 (Given - Provider: Dianna Nazario, MARZENA)2022 (Given - Provider: Eugenia Lassiter RN) 0834 (Given - Provider: Lucy Jacobo RN) Continuous Medication Order 04/26/2025 04/27/2025 04/28/2025 lactated Ringer's infusion 84 mL/hr, Intravenous, Continuous, Starting on Wed04/27/25 at 1115, Until 04/28/25 at 1743, Routine 1215 (New Bag - Provider: Dianna Nazario RN)2000 (Rate/Dose Verify - Provider: Eugenia Lassiter RN)2035 (Rate/Dose Verify - Provider: Eugenia Lassiter RN) 0000 (Rate/Dose Verify - Provider: Eugenia Lassiter RN)0400 (Rate/Dose Verify - Provider: Eugenia Lassiter RN) PRN Medication Order 04/26/2025 04/27/2025 04/28/2025 acetaminophen (Tylenol) tablet 1,000 mg (COMPLETED) 1,000 mg, Oral, Once as needed, 1 dose, Starting on Wed04/27/25 at 1003, Until Wed04/27/25 at 1012, Routine, Recovery (Phase I only), pain score of >1 out of 10 1012 (Given - Provider: Dianna Nazario RN) albuterol 108 (90 Base) MCG/ACT inhaler 2 puff 2 puff, Inhalation, Every 4 hours PRN, Starting on Wed04/27/25 at 1730, Until 04/28/25 at 1743, Routine, Recovery(Phase II-Outpatient)/On Unit(Inpatient), wheezing, shortness of breath dextrose 10 % (D10W) bolus 125 mL(Linked Group 2) 125 mL, Intravenous, Every 15 min PRN, Starting on Wed04/27/25 at 1025, Until 04/28/25 at 1743, Administer over 15 Minutes, Routine, low blood sugar BG 51-89 mg/dL dextrose 10 % (D10W) bolus 250 mL(Linked Group 2) 250 mL, Intravenous, Every 15 min PRN, Starting on Wed04/27/25 at 1025, Until 04/28/25 at 1743, Administer over 15 Minutes, Routine, PRN low blood sugar BG =/<50 mg/dL fentaNYL (Sublimaze) injection 25 mcg (COMPLETED) 25 mcg, Intravenous, Every 5 min PRN, 2 doses, Starting on Wed04/27/25 at 1006, Until Wed04/27/25 at 1024, Routine, Recovery (Phase I only), moderate pain, Pain score 3-8 out of 10 1018 (Given - Provider: Dianna Nazario RN)1024 (Given - Provider: Dianna Nazaroi RN) fentaNYL (Sublimaze) injection 25 mcg (COMPLETED) 25 mcg, Intravenous, Every 15 min PRN, 2 doses, Starting on Wed04/27/25 at 1204, Until Wed04/27/25 at 1205, Routine, Recovery (Phase I only), moderate pain, severe pain, CPOT score 3-9 1200 (Given - Provider: Dianna Nazario RN)1205 (Given - Provider: Dianna Nazario RN) glucagon (human recombinant) injection 1 mg(Linked Group 2) 1 mg, Intramuscular, Every 15 min PRN, Starting on Wed04/27/25 at 1025, Until 04/28/25 at 1743, Routine, Recovery(Phase II-Outpatient)/On Unit(Inpatient), low blood sugar per Hypoglycemia Prevention and Treatment protocol glucose (Glutose) 40 % oral gel 15-30 grams of glucose(Linked Group 2) 15-30 grams of glucose, Sublingual, Every 15 min PRN, Starting on Wed04/27/25 at 1025, Until 04/28/25 at 1743, Routine, Recovery(Phase II-Outpatient)/On Unit(Inpatient), low blood sugar, per Hypoglycemia Prevention and Treatment protocol hyoscyamine (Anaspaz,Levsin) tablet 0.125 mg 0.125 mg, Oral, Every 4 hours PRN, Starting on Wed04/27/25 at 1816, Until 04/28/25 at 0415, Routine, bladder spasms lidocaine (Uro-Jet) 2 % gel 1 Application Urethral, As needed, Starting on Wed04/27/25 at 1021, Until 04/28/25 at 1743, Routine, mild pain, Adult Male Difficult Insertion Protocol-use with Coude Catheter insertion melatonin tablet 3 mg (COMPLETED) 3 mg, Oral, Once as needed, 1 dose, Starting on Wed04/27/25 at 2314, Until Wed04/27/25 at 2325, Routine, Sleep 2325 (Given - Provider: Eugenia Lassiter, MARZENA) methocarbamol (Robaxin) tablet 500 mg 500 mg, Oral, 4 times daily PRN, Starting on Wed04/27/25 at 1817, Until 04/28/25 at 0400, Routine, muscle spasms 1834 (Given - Provider: Lianet Francis, MARZENA)2319 (Given - Provider: Eugenia Lassiter, MARZENA) oxyCODONE (Roxicodone) immediate release tablet 10 mg (COMPLETED)(Linked Group 3) 10 mg, Oral, Once as needed, 2 doses, Starting on Wed04/27/25 at 1003, Until Wed04/27/25 at 1455, Routine, Recovery (Phase I only), pain score of 6-8 out of 10 1015 (Given - Provider: Dianna Nazario, MARZENA)1455 (Given - Provider: Dianna Nazario RN) sodium chloride 0.9 % flush 1 mL (CANCELED) 1 mL, Intravenous, Every 8 hours PRN, Starting on Wed04/27/25 at 0607, Until Wed04/27/25 at 0959, Routine, Holding - Preprocedure, line care 0647 (Given - Provider: Irwin Darden RN) sodium chloride 0.9 % flush 10 mL(Linked Group 1) 10 mL, Intravenous, As needed, Starting on Wed04/27/25 at 1020, Until 04/28/25 at 1743, Routine, Recovery(Phase II-Outpatient)/On Unit(Inpatient), line care Linked Groups Order Group 1: Insert peripheral IV (CANCELED) Once, On Wed04/27/25 at 1021, For 1 occurrence, Recovery(Phase II-Outpatient)/On Unit(Inpatient) And Saline lock IV (CANCELED) Once, On Wed04/27/25 at 1021, For 1 occurrence, Recovery(Phase II-Outpatient)/On Unit(Inpatient) And sodium chloride 0.9 % flush 10 mLJump to med 10 mL, Intravenous, Every 12 hours, First dose on Wed04/27/25 at 1115, Until Discontinued, Routine, Recovery(Phase II-Outpatient)/On Unit(Inpatient) And sodium chloride 0.9 % flush 10 mLJump to med 10 mL, Intravenous, As needed, Starting on Wed04/27/25 at 1020, Until 04/28/25 at 1743, Routine, Recovery(Phase II-Outpatient)/On Unit(Inpatient), line care Group 2: glucose (Glutose) 40 % oral gel 15-30 grams of glucoseJump to med 15-30 grams of glucose, Sublingual, Every 15 min PRN, Starting on Wed04/27/25 at 1025, Until 04/28/25 at 1743, Routine, Recovery(Phase II-Outpatient)/On Unit(Inpatient), low blood sugar, per Hypoglycemia Prevention and Treatment protocol Or dextrose 10 % (D10W) bolus 125 mLJump to med 125 mL, Intravenous, Every 15 min PRN, Starting on Wed04/27/25 at 1025, Until 04/28/25 at 1743, Administer over 15 Minutes, Routine, low blood sugar BG 51-89 mg/dL Or dextrose 10 % (D10W) bolus 250 mLJump to med 250 mL, Intravenous, Every 15 min PRN, Starting on Wed04/27/25 at 1025, Until 04/28/25 at 1743, Administer over 15 Minutes, Routine, PRN low blood sugar BG =/<50 mg/dL Or glucagon (human recombinant) injection 1 mgJump to med 1 mg, Intramuscular, Every 15 min PRN, Starting on Wed04/27/25 at 1025, Until 04/28/25 at 1743, Routine, Recovery(Phase II-Outpatient)/On Unit(Inpatient), low blood sugar per Hypoglycemia Prevention and Treatment protocol Group 3: oxyCODONE (Roxicodone) immediate release tablet 5 mg (COMPLETED) 5 mg, Oral, Once as needed, 2 doses, Starting on Wed04/27/25 at 1003, Until Wed04/27/25 at 1455, Routine, Recovery (Phase I only), pain score of 3-5 out of 10 Or oxyCODONE (Roxicodone) immediate release tablet 10 mg (COMPLETED)Jump to med 10 mg, Oral, Once as needed, 2 doses, Starting on Wed04/27/25 at 1003, Until Wed04/27/25 at 1455, Routine, Recovery (Phase I only), pain score of 6-8 out of 10 documented in this encounter Additional Health Concerns Assessment Noted Time PHQ-9 Depression Total Score: 0 01/11/20 9:55 AM EDT A fall risk assessment has been complete d for the patient 01/10/2025 9:55 AM EDT A Body Mass Index follow-up plan has been documented for the patient 04/28/2025 2:47 PM EDT documented as of this encounter Care Teams Credit Specialist Relationship Specialty Start Date End Date Ryne Bergman MD [address] [place] [address] PCP - General 04/21/24 Abiola Loyola APRN [address] [phone] Nurse Practitioner Urology 10/30/24 Aarti Maldonado MD [address] [facility] [place] [phone] Surgeon Urology 01/10/25 documented as of this encounter
--- OUTSIDE RECORDS SUMMARY | 2025-04-27 07:29 | XMS_ITS | Encounter Summary ---
Author Organization Healthcare Address [address] [place] [address] Care Team Providers Care Ball Rolling Machine Operator Name Role Phone Ryne Bergman MD Primary Care Provider [phone] Abiola Loyola FIELD TECHNICAL SPECIALIST Unavailable [phone] Aarti Maldonado MD Unavailable [phone] Reason for Visit * Auth/Cert (Routine) Specialty Diagnoses / Procedures Referred By Contac t Referred To Contact Diagnoses BPH (benign prostatic hyperplasia) BPH Procedures MA LASER ENUCLEATION PROSTATE W MORCELLATION ENUCLEATION, PROSTATE, TRANSURETHRAL, USING HOLMIUM LASER Aarti Maldonado MD [address] [facility] [address] [place] [address] Phone: tel: fax: [facility] [address] [place] [address] Phone: tel: Referral ID Status Reason Start Date Expiration Date Visits Re quested Visits Authorized [id number] 1 1 Encounter Details Date Type Department Care Team (Late st Contact Info) Description 04/27/2025 7:29 AM EDT Anesthesia Event [facility] [address] [place] [address] Lavon Jimenes MD [address] [place] [address] Anesthesia Record Procedure Summary Procedure Name Responsible Anesthesiologist Anesthesia Start Time Anesthesia Stop Time ENUCLEATION, PROSTATE, TRANSURETHRAL, USING HOLMIUM LASER Lavon Jimenes MD 04/27/25 0729 04/27/25 1008 Events Date Time Event Comment 04/27/2025 0705 0729 In Room 0729 An Start The patient was reevaluated immediately before sedation and remains eligible for anesthesia plan. 0729 An Start Data 0733 An Induction The patient was reevaluated immediately before moderate or deep sedation use and before anesthesia induction. 0736 An Intubation 0736 Anesthesia Ready 0741 IV Placed Right wrist 18 G PIV started 0757 Proc Start 0954 An Extubation 0955 Proc Fin 0956 an stop data 0957 Out of Room 1008 Handoff to Receiving I compl eted my handoff to the receiving clinician during which we: 1. Identified the patient 2. Identified the responsible provider 3. Reviewed the pertinent medical history 4. Discussed the surgical course 5. Reviewed intra-op anesthesia management and issues during anesthesia 6. Set expectations for post-procedure period 7. Allowed opportunity for questions and acknowledgement of understanding. 1008 An Stop Meds Name Total fentaNYL (Sublimaze) injection 50 mcg/mL 100 mcg lidocaine PF (Xylocaine-MPF) 2% 100 mg propofol (Diprivan) injection 10 mg/mL 2 00 mg rocuronium (ZeMuron) injection 10 mg/mL 50 mg succinylcholine (Anectine) injection 20 mg/mL 120 mg dexamethasone (Decadron) injection 4 mg/ mL 4 mg ePHEDrine injection prefilled syringe 5 mg/mL 20 mg ondansetron (Zofran) injection 2 mg/mL 4 mg sugammadex (Bridion) injection 100 mg/mL 200 mg ceFAZolin (Ancef) injection 2 g 2 g lactated Ringer's infusion 1,000 mL * Agents Name O2 N2O Air Sevoflurane Isoflurane Desflurane Inspired Desflurane Inspired Isoflurane Inspired Sevoflurane N2O Inspired N2O * Blood No blood administrations on file. Lines, Drains, and Airways Type Details Placement Removal Urethral Catheter Placement Date: 04/27/25; Placement Time: 941; Inserted by: Joel Ureña; Type: Non-latex; Size: 22 Fr.; Balloon Size: 30 mL; Urine Returned: Yes 04/27/25941 by Robbie Soliz RN Continuous Bladder Irrigation 04/27/25; 941; No; OR STAFF; 22 Fr; 30 mL 04/27/25941 by Dianna Nazario RN Peripheral IV Placement Date: 04/27/25; Placement Time: 0645; Catheter Size: 18 G; Orientation: Left, Posterior; Location: Hand; Inserted by: Angeli Darden; Removal Date: 04/29/25; Removal Time: 1543 04/27/25 0645 by Angeli Darden RN 04/29/25 1543 by Discharge Provider, Automatic ETT Placement Date: 04/27/25; Placement Time: 0736 (created via procedure documentation); Mask Ventilation: 2; Technique: Direct laryngoscopy; Type: ETT - single; Single Lumen Tube Size: 7.5 mm; Laryngoscope: Kennedy; Blade Size: 3; Location: Oral; Grade View: Grade IIb; Insertion Attempts: 1; Placement Verification: Auscultation, Capnometry; Placed by: Other (Comment); Removal Date: 04/27/25; Removal Time: 0954 04/27/25 0736 by Philippe Connelly 04/27/25 0954 by Philippe Connelly Peripheral IV Placement Date: 04/27/25; Placement Time: 0740 (created via procedure documentation); Catheter Size: 18 G; Orientation: Right; Location: Forearm; Technique: Anatomical landmarks; Insertion Attempts: 1; Removal Date: 04/29/25; Removal Time: 1543 04/27/25 0740 by Philippe Connelly 04/29/25 1543 by Discharge Provider, Automatic documented in this encounter Social History Tobacco Use Types Packs/Day Years [...] as of this encounter Functional Status * Calculated C-SSRS Risk Score (Lifetime/Recent) Answer Date of Assessment Author No Risk Indicated 04/27/2025 8:00 PM EDT Eugenia Lassiter RN * Question Answer Date of Assessment Author 1. Wish to be (Past 1 Month) No 04/27/2025 8:00 PM EDT Eugenia Lassiter RN 2. Non-Specific Active Suici kwesi Thoughts (Past 1 Month) No 04/27/2025 8:00 PM EDT Celia Lassiter RN 6. Suicidal Behavior (Lifetime) No 8:00 PM EDT Eugenia Lassiter RN documented as of this encounter Miscellaneous Notes * Anesthesia Postprocedure Evaluation - Chelly Machuca CRNA - 04/27/2025 10:08 AM EDT Patient: Ramsey Castrejon Anesthesia Type: general Vitals Value Taken Time BP 133/62 04/27/25 10:01 Temp 99.0 04/27/25 10:08 Pulse 64 04/27/25 10:06 Resp 19 04/27/25 10:06 SpO2 93 % 04/27/25 10:06 Vitals shown include unfiled device data. Anesthesia Post Evaluation Patient location during evaluation: PACU Patient participation: complete - patient participated Level of consciousness: awake (Responsive to verbal stimuli) Pain management: adequate (pain score 0-3) Airway patency: natural airway Cardiovascular status: acceptable Respiratory status: face mask, nonlabored ventilation and spontaneous ventilation Hydration status: stable Comments: Monitors in place once arrived to PACU. Report to SUGAR GRINDER and care accepted. Vital signs stable. No notable events documented. * Anesthesia Procedure Notes - Philippe Connelly - 04/27/2025 7:58 AM EDT Associated Order(s): Peripheral IV Peripheral IV Date/Time: 04/27/2025 7:40 AM Placement Needle size: 18 G Location: forearm Site prep: alcohol Technique: anatomical landmarks Attempts: 1 Cosigned by Chelly Machuca CRNA at 04/27/2025 8:04 AM EDT * Anesthesia Procedure Notes - Philippe Connelly - 04/27/2025 7:57 AM EDT Associated Order(s): Airway Airway Date/Time: 04/27/2025 7:36 AM Reason: elective Airway not difficult General Information and Staff Patient location during procedure: OR MACHINE DYER: Chelly Machuca CRNA Other anesthesia staff: Philippe Connelly Performed: Other Anesthesia Staff Patient Condition Indications for airway management: anesthesia Patient position: ramp MILS maintained throughout Final Airway Details Final airway type: endotracheal airway Successful airway: ETT Successful intubation technique: direct laryngoscopy Adjuncts used in placement: intubating stylet Endotracheal tube insertion site: oral Blade: Kennedy Blade size: #3 ETT size (mm): 7.5 Cormack-Lehane Classification: grade IIb - view of arytenoids or posterior of glottis only Placement verified by: chest auscultation and capnometry Measured from: lips ETT to lips (cm): 22 Cosigned by Chelly Machuca CRNA at 04/27/2025 8:04 AM EDT * Anesthesia Preprocedure Evaluation - Lavon Jimenes MD - 04/27/2025 7:06 AM EDT MACHINE DYER: Chelly Machuca CRNA Student Nurse Greens Keeper: Philippe Connelly Patient: Ramsey Castrejon is a 64 y.o. male with body mass index is 34.7 kg/m??. who presents with No PrincipalProblem: There is no principal problem currently on the Problem List. Please update the Problem List and refresh., now for ENUCLEATION, PROSTATE, TRANSURETHRAL, USING HOLMIUM LASER (N/A) Procedure Information Date/Time: 04/27/25729 Procedure: ENUCLEATION, PROSTATE, TRANSURETHRAL, USING HOLMIUM LASER [facility]: [facility] June / ENDER OR Surgeons: Aarti Maldonado MD Relevant Problems Anesthesia (+) Obstructive sleep apnea syndrome Cardio (+) Breath shortness (+) CHF (congestive heart failure) (CMS/HCC) (+) Primary hypertension /Renal (+) BPH with obstruction/lower urinary tract symptoms Pulmonary (+) Upper respiratory infection ALLERGIES Allergies[1] NPO STATUS Date of Last Liquid: 04/27/25 Time of Last Liquid: 299 Date of Last Solid: 04/26/25 Time of Last Solid: 2299 Last Intake Type: Clear fluids Time of Last Void: 637 Past Medical History[2] AIRWAY HISTORY Airway Detailed Review Displaying the 20 most recent records No records found. MEDICATIONS Outpatient Current Outpatient Medications Medication Instructions albuterol 108 (90 Base) MCG/ACT inhaler INHALE 1 PUFF BY MOUTH EVERY 6 HOURS aspirin 81 mg, ZZ Daily RT BD Pen Needle Rosalia 2nd Gen 32G X 4 MM misc USE 1 PEN SUBCUTANEOUSLY THREE TIMES DAILY WITH INJECTABLE MEDICATION finasteride (PROSCAR) 5 mg, ZZ Daily RT FLUoxetine (PROZAC) 40 mg, Daily FLUoxetine (PROZAC) 20 mg, ZZ Daily RT HumaLOG MIX 75/25 KWIKPEN (75-25) 100 UNIT/ML injection pen INJECT 60 UNITS SUBCUTANEOUSLY ONCE IN THE MORNING, 30 UNITS AT NOON, AND 60 UNITS IN THE EVENING Jardiance 10 mg, Daily metFORMIN XR (GLUCOPHAGE-XR) 750 mg, Daily with dinner metoprolol succinate XL (TOPROL-XL) 25 mg, Daily NIFEdipine CC (ADALAT CC) 60 mg, Daily before breakfast OneTouch Verio test strip USE 1 STRIP TO CHECK GLUCOSE TWICE DAILY DIRECTED pioglitazone (ACTOS) 45 mg, Daily potassium chloride CR (K-Tab) 20 MEQ ER tablet 20 mEq, ZZ Daily RT pramipexole (MIRAPEX) 1 mg, ZZ Daily RT rosuvastatin (CRESTOR) 20 mg, ZZ Daily RT tamsulosin (FLOMAX) 0.4 mg, 2 times daily topiramate (TOPAMAX) 25 mg, 2 times daily valsartan (DIOVAN) 320 mg, ZZ Daily RT Scheduled Current Scheduled Medications[3] PRNs Current PRN Medications[4] SURGICAL HX: Surgical History[5] SOCIAL HX: Social History[6] OBJECTIVE DATA LABS No results found for: WBC , HGB , HCT , MCV , PLT Lab Results Component Value Date CREATININE 0.84 01/10/2025 Type and Screen No results found for: ABO No results found for: HGBA1C Lab Results Component Value Date PGLU 151 (H) 04/27/2025 ABG No results found for: PHART , HTF4TZS , PO2ART , SO2ART , BEART , LMV0NFW , HCTART , SODIUMART , POTASSIUMART , POCTCL , POCGLU , IONCALART , LACTATE Lab Results Component Value Date PH 5.5 01/10/2025 ECHO No echocardiogram results found for the past 12 months PFTs No results found for: NTV8OMF , UAW8YDIU , BOJ0XEE , FVCPRED BP Readings from Last 5 Encounters: 04/27/25 122/62 03/14/25 115/61 01/10/25 139/66 10/30/24 (!) 162/80 Physical Exam Airway Mallampati: III Cardiovascular Rhythm: regular Rate: normal Dental Comments: Loose teeth and missing Pulmonary Breath sounds clear to auscultation Neurological Oriented: normal to time, normal to place and normal to person Skin Musculoskeletal Extremities Anesthesia Plan ASA 3 Plan was reviewed with: MACHINE DYER Anesthesia technique(s) discussed with the patient/family: general Anesthesia plan agreed upon was: general Anesthetic plan and risks discussed with patient. Use of blood products discussed with patient who consented to blood products. ROS Anesthesia: obstructive sleep apnea. Cardiovascular: CHF. hypertension: Neurological: TIA. Gastrointestinal: obese. Endocrine/Metabolic: diabetes mellitus. [1] Allergies Allergen Reactions Morphine Hives, Itching, Rash and Swelling Oxybutynin Palpitations Increase BP [2] Past Medical History: Diagnosis Date Benign prostatic hyperplasia Diabetes mellitus (CMS/HCC) Hypertension Urinary tract infection 2023 [3] ceFAZolin, 2 g, Intravenous, Once [4] PRN medications: sodium chloride [5] Past Surgical History: Procedure Laterality Date CARDIAC CATHETERIZATION CARPAL TUNNEL RELEASE Left CARPAL TUNNEL RELEASE Right CHOLECYSTECTOMY 2013 CYSTOSCOPY 2023 GALLBLADDER SURGERY NECK SURGERY TONSILLECTOMY ULNAR NERVE REPAIR Left [6] Social History Tobacco Use Smoking status: Some Days Current packs/day: 0.25 Average packs/day: 0.3 packs/day for 1.4 years (0.3 ttl pk-yrs) Types: Cigarettes Start date: 03/27/2024 Passive exposure: Current Smokeless tobacco: Never Tobacco comments: Working on quiting Vaping Use Vaping status: Former Substance Use Topics Alcohol use: Not Currently Alcohol/week: 1.0 standard drink of alcohol Comment: Very rarely drink Drug use: Never documented in this encounter Plan of Treatment Upcoming Encounters Date Type Department Care Team (Late st Contact Info) Description 06/20/2025 12:30 PM EDT Office Visit Medical Office Building Urology [address] [facility], [address] [place] [address] Aarti Maldonado MD [address] [place] [address] documented as of this encounter Procedures Procedure Name Priority Date/Time Associated Diagnosis Comments ANESTHESIA PERIPHERAL IV PLACEMENT Routine 04/27/2025 7:40 AM EDT PB ANESTHESIA PLACEHOLDER Routine 04/27/2025 7:36 AM EDT MA AN ELECTIVE ENDOTRACHEAL AIRWAY Routine 04/27/2025 7:36 AM EDT documented in this encounter Results * Peripheral IV (04/27/2025 7:40 AM EDT) Narrative Chelly Machuca CRNA - 04/27/2025 7:40 AM EDT Chelly Machuca CRNA 04/27/2025 8:04 AM Peripheral IV Date/Time: 04/27/2025 7:40 AM Placement Needle size: 18 G Location: forearm Site prep: alcohol Technique: anatomical landmarks Attempts: 1 Chelly Machuca CRNA ANESTHESIA ORDERABLES Final Result * MA AN ELECTIVE ENDOTRACHEAL AIRWAY, PB ANESTHESIA PLACEHOLDER (04/27/2025 7:36 AM EDT) Narrative Chelly Machuca CRNA - 04/27/2025 7:36 AM EDT Chelly Machuca CRNA 04/27/2025 8:04 AM Airway Date/Time: 04/27/2025 7:36 AM Reason: elective Airway not difficult General Information and Staff Patient location during procedure: OR MACHINE DYER: Chelly Machuca CRNA Other anesthesia staff: Philippe Connelly Performed: Other Anesthesia Staff Patient Condition Indications for airway management: anesthesia Patient position: ramp MILS maintained throughout Final Airway Details Final airway type: endotracheal airway Successful airway: ETT Successful intubation technique: direct laryngoscopy Adjuncts used in placement: intubating stylet Endotracheal tube insertion site: oral Blade: Kennedy Blade size: #3 ETT size (mm): 7.5 Cormack-Lehane Classification: grade IIb - view of arytenoids or posterior of glottis only Placement verified by: chest auscultation and capnometry Measured from: lips ETT to lips (cm): 22 Chelly Machuca CRNA ANESTHESIA ORDERABLES Final Result documented in this encounter Visit Diagnoses Not on filedocumented in this encounter Administered Medications Inactive Administered Medications - up to 3 most recent administrations Medication Order MAR Action Action Date Dose Rate Site ceFAZolin (Ancef) injection 2 g 2 g, Intravenous, Once, 1 dose, On Wed04/27/25 at 0715, Routine, Holding - Preprocedure Given 04/27/2025 7:50 AM EDT 2 g dexamethasone (Decadron) injection Intravenous, As needed, Starting on Wed04/27/25 at 0800, Until Wed04/27/25 at 1008, Routine, Anesthesia Intraprocedure Given 04/27/2025 8:00 AM EDT 4 mg ePHEDrine Sulfate (Akovaz) injection Intravenous, As needed, Starting on Wed04/27/25 at 0828, Until Wed04/27/25 at 1008, Routine, Anesthesia Intraprocedure Given 04/27/2025 8:39 AM EDT 10 mg Given 04/27/2025 8:28 AM EDT 10 mg fentaNYL (Sublimaze) injection Intravenous, As needed, Starting on Wed04/27/25 at 0733, Until Wed04/27/25 at 1008, Routine, Anesthesia Intraprocedure Given 04/27/2025 8:00 AM EDT 50 mcg Given 04/27/2025 7:33 AM EDT 50 mcg lactated Ringer's infusion Intravenous, Continuous PRN, Starting on Wed04/27/25 at 0729, Until Wed04/27/25 at 1008, Routine New Bag 04/27/2025 7:29 AM EDT lidocaine PF (Xylocaine) 2 % injection Intravenous, As needed, Starting on Wed04/27/25 at 0733, Until Wed04/27/25 at 1008, Routine, Anesthesia Intraprocedure Given 04/27/2025 7:33 AM EDT 100 mg ondansetron (Zofran) injection Intravenous, As needed, Starting on Wed04/27/25 at 0945, Until Wed04/27/25 at 1008, Routine, Anesthesia Intraprocedure Given 04/27/2025 9:45 AM EDT 4 mg propofol (Diprivan) injection Intravenous, As needed, Starting on Wed04/27/25 at 0734, Until Wed04/27/25 at 1008, Routine, Anesthesia Intraprocedure Given 04/27/2025 7:34 AM EDT 200 mg rocuronium (ZeMuron) injection Intravenous, As needed, Starting on Wed04/27/25 at 0734, Until Wed04/27/25 at 1008, Routine, Anesthesia Intraprocedure Given 04/27/2025 8:59 AM EDT 10 mg Given 04/27/2025 7:42 AM EDT 30 mg Given 04/27/2025 7:34 AM EDT 10 mg succinylcholine (Anectine) injection Intravenous, As needed, Starting on Wed04/27/25 at 0735, Until Wed04/27/25 at 1008, Routine, Anesthesia Intraprocedure Given 04/27/2025 7:35 AM EDT 120 mg sugammadex (Bridion) 100 MG/ML injection Intravenous, As needed, Starting on Wed04/27/25 at 0945, Until Wed04/27/25 at 1008, Routine, Anesthesia Intraprocedure Given 04/27/2025 9:48 AM EDT 100 mg Given 04/27/2025 9:45 AM EDT 100 mg documented in this encounter Additional Health Concerns Assessment Noted Time PHQ-9 Depression Total Score: 0 01/11/20 9:55 AM EDT A fall risk assessment has been complete d for the patient 01/10/2025 9:55 AM EDT A Body Mass Index follow-up plan has been documented for the patient 04/28/2025 2:47 PM EDT documented as of this encounter Care Teams Ball Rolling Machine Operator Relationship Specialty Start Date End Date Ryne Bergman MD [address] [place] [address] PCP - General 04/21/24 Abiola Loyola APRN [address] [facility] [place] [address] Nurse Practitioner Urology 10/30/24 Aarti Maldonado MD [address] [facility] [place] [id number] Surgeon Urology 01/10/25 documented as of this encounter
--- OUTSIDE RECORDS SUMMARY | 2025-04-27 07:30 | XMS_ITS | Encounter Summary ---
Author Organization [facility] Address [address] [place] [address] Care Team Providers Care Fishing Gear Mechanic Name Role Phone Ryne Bergman MD Primary Care Provider [phone] Abiola Loyola APRN Unavailable [phone] Aarti Maldonado MD Unavailable [phone] Reason for Visit * Auth/Cert (Routine) Specialty Diagnoses / Procedures Referred By Contac t Referred To Contact Diagnoses BPH (benign prostatic hyperplasia) BPH Procedures AK LASER ENUCLEATION PROSTATE W MORCELLATION ENUCLEATION, PROSTATE, TRANSURETHRAL, USING HOLMIUM LASER Aarti Maldonado MD [address] [address] Phone: tel: fax: [facility] [address] [place] [address] Phone: tel: Referral ID Status Reason Start Date Expiration Date Visits Re quested Visits Authorized [id number] 1 1 Encounter Details Date Type Department Care Team (Late st Contact Info) Description 04/27/2025 7:30 AM EDT - 04/27/2025 9:45 AM EDT Surgery [facility] [address] [place] [address] Aarti Maldonado MD [address] [address] ENUCLEATION, PROSTATE, TRANSURETHRAL, USING HOLMIUM LASER [34230 (CPT )] Surgery Details Date/Time Status Location OR Service Patient Class Case Class Case Type Trauma Case? 04/27/2025 7:30 AM Posted [facility]ER [facility] 09 Urology Extended Recovery E-Electiv e Panel 1 Procedure LRB Anes Op Region Wound Class Comments ENUCLEATION, PROSTATE, TRANSURETHRAL, USING HOLMIUM LASER N/A General Class II/ Clean Contaminate d Surgeon Surgeon Role Service Panel Aarti Maldonado MD Primary Urology 1 Jay Dyer MD Resident - Assisting 1 Kimberly Mayer DO Fellow Urology 1 Special Needs Will need FORTEC - masterpulse holmium laser, piranha morcellator and storz scope set. documented in this encounter Social History Tobacco [...] Sign Reading Time Taken Comments Blood Pressure 122/62 04/27/2025 6:23 AM EDT Pulse 59 04/27/2025 6:23 AM EDT Temperature 36.9 C (98.4 F) 04/27/2025 6:23 AM EDT Respiratory Rate 18 04/27/2025 6:23 AM EDT Oxygen Saturation 95% 04/27/2025 6:23 AM EDT Inhaled Oxygen Concentration - - Weight 107 kg (235 lb) 04/27/2025 6:24 AM EDT Height - - Body Mass Index 34.69 04/27/2025 4:22 PM EDT documented in this encounter Discharge Instructions * Discharge Instructions* Selena Saldivar DO - 04/28/2025 1:33 PM EDT [facility] [place] instructions: Diagnosis: Benign prostate hyperplasia with [...] up to 10 days. 80 tablet 04/28/2025 documented as of this encounter Miscellaneous Notes [...] (Individualized) Outcome: Ongoing, Progressing Flowsheets (Taken 04/28/2025 2645) Patient/Family-Specific Goals (Include Timeframe): Pt will remain free from falls and/or injuries during this shift. Individualized Care Needs: Safety Anxieties, Fears or Concerns: Getting to go home Problem: Adult Inpatient Plan of Care Goal: Readiness for Transition of Care Intervention: Mutually Develop Transition Plan Flowsheets (Taken 04/28/2025 7583) Discharge Facility/Level of Care Needs: 1-Home or [...] and Optimize Oral Intake Flowsheets (Taken 04/28/2025 3554) Oral Nutrition Promotion: physical activity promoted Nutrition Interventions: food preferences provided Problem: Urinary Diversion Goal: Effective Urinary Elimination Intervention: Promote Optimal Urine Output Flowsheets (Taken 04/28/2025 2647) Urine Elimination Promotion (Post-Diversion): catheter patency maintained Note: CBI throughout morning. Problem: Fall Injury Risk Goal: Absence of Fall and Fall-Related Injury Intervention: Promote Injury-Free Environment Flowsheets (Taken 04/28/2025 3086) Safety Promotion/Fall Prevention: activity supervised assistive device/personal items within reach clutter-free environment maintained fall prevention program maintained * Bruce Aquino RN - 04/28/2025 1:50 PM EDT Images from the original note were not included. 01362 Preventing a Surgical Site Infection A risk [...] of infection. ? Controlled body temperature. A ozjcf-umff-tsxjfp temperature during or after surgery prevents oxygen [...] and water or with an alcohol-based hand marine steam fitter before and after caring for you. Don?t [...] away. Last Reviewed Date: 2024 00:00:00 ?? [id number] [employer]. All rights reserved. This information is not intended as a substitute for professional medical care. Always follow your healthcare professional's instructions. * Sangita Pyle - Bruce Meredith RN - 04/28/2025 1:50 PM EDT Images from the original note were not included. 96293 Laser Prostatectomy You have an enlarged prostate [...] medicines you take. This includes prescription and orfr-iga-inrdesp medicines, vitamins, herbs, and other supplements. It [...] flow Last Reviewed Date: 2023 00:00:00 ?? 4593-1059 [employer]. All rights reserved. This information is not intended as a substitute for professional medical care. Always follow your healthcare professional's instructions. * Sangita Pyle - Bruce Meredith RN - 04/28/2025 1:49 PM EDT Images from the original note were not included. 91999 Benign Prostatic Hyperplasia The prostate is a [...] Transrectal ultrasound is a procedure where the nanotechnician inserts a transducer slightly larger than a [...] biopsy. Last Reviewed Date: 2024 00:00:00 ?? [id number] [employer]. All rights reserved. This information is not [...] name and Address: Ryne Bergman MD [address] [facility] [address] Referring provider name and address: No referring provider defined for this encounter. Chief Concern, Brief History of Present Illness, and Hospital Course Ramsey Castrejon is a 64 y.o. male with PMH of BPH/LUTS, type 2 diabetes, hypertension and history of urinary retention previously needing CIC who presented to [facility] with BPH for surgical intervention. They [...] retention previously needing CIC who presented to [facility] with BPH for surgical intervention. They [...] Progress: improving Taken 04/27/2025 1722 by Lianet Francis RN [...] Wellbeing Intervention: Provide Person-Centered Care Flowsheets (Taken 04/27/20252099) [...] Manage Fluid and Electrolyte Balance Flowsheets (Taken 04/27/2025 172) Fluid/Electrolyte Management: fluids adjusted fluids provided Goal: [...] Note: Operative Report SURGEON: Aarti Maldonado MD City Supervisor: DO Jay Gómez MD SURGICAL TEAM: Stock Supervisor: Robbie Soliz RN Relief Stock Supervisor: Wayne Cotton RN Relief Scrub: Danni Verde [...] 04/27/2025 10:24 AM Release to patient in MyChart Immediate BASIC METABOLIC PANEL, PLASMA Blood, Venous 04/27/2025 10:24 AM Release to patient in MyChart Immediate SURGICAL PATHOLOGY EXAM Prostate Pre-op diagnosis: [...] with sequential dilators from 20 - 30 Russian. The 28 Russian Storz continuous flow resectoscope sheath was inserted [...] The scope was removed and a 22 Russian 3-way Main catheter was inserted with continuous [...] visit. Results Review {Vanishing Link Review Results :[id number] I have reviewed the latest lab and [...] Name Age of Onset Hypertension Mother Tawnya Torrance Kidney disease Mother Tawnya Acsh Cancer Father [place] Torrance Anesthesia problems Neg Hx Malig Hyperthermia Neg [...] Upcoming Encounters Date Type Department Care Team ([facility] Contact Info) Description 06/20/2025 12:30 PM EDT Office Visit Medical Office Building Urology [address], [address] [place] [address] Aarti Maldonado MD [address] [facility] [address] [place] [address] documented as of this encounter [...] 9:42 AM EDT BPH (benign prostatic hyperplasia) AK LASER ENUCLEATION PROSTATE W MORCELLATION 04/27/2025 7:14 [...] LAB HEMATOLOGY METHOD 04/28/2025 5:03 AM EDT [facility] RBC Count 3.88(L) 4.60 - 6.10 10*6/uL LAB HEMATOLOGY METHOD 04/28/2025 5:03 AM EDT [facility] HGB 11.7(L) 13.7 - 17.5 g/dL LAB HEMATOLOGY METHOD 04/28/2025 5:03 AM EDT [facility] HCT 37.4(L) 40.0 - 51.0 % LAB HEMATOLOGY METHOD 04/28/2025 5:03 AM EDT [facility] Platelet Count 135(L) 155 - 369 10*3/uL LAB HEMATOLOGY METHOD 04/28/2025 5:03 AM EDT [facility] MCV 96 79 - 98 fL LAB HEMATOLOGY METHOD 04/28/2025 5:03 AM EDT [facility] MCH 30.2 26.0 - 32.0 pg LAB HEMATOLOGY METHOD 04/28/2025 5:03 AM EDT [facility] MCHC 31.3 30.7 - 35.5 g/dL LAB HEMATOLOGY METHOD 04/28/2025 5:03 AM EDT [facility] RDW 13.1 11.5 - 14.5 % LAB HEMATOLOGY METHOD 04/28/2025 5:03 AM EDT [facility] MPV 10.2 8.8 - 12.5 fL LAB HEMATOLOGY METHOD 04/28/2025 5:03 AM EDT [facility] nRBC 0.0 <=0.0 per 100 WBCs LAB HEMATOLOGY METHOD 04/28/2025 5:03 AM EDT [facility] Blood Venous blood specimen / Unknown Venipuncture / Unknown 04/28/2025 4:46 AM EDT 04/28/2025 4:56 AM EDT us Aarti Maldonado MD LAB BLOOD ORDERABLES Final R esult Performing Organization Address City/[facility]/ZIP Co de Phone Number [facility] [address] [place] [address] * (ABNORMAL) POCT glucose meter (04/27/2025 7:19 PM EDT) [facility] POCT Glucose 267(H) 74 - 99 mg/dL [...] Comment 04/27/2025 7:21 PM EDT [facility] Contact Lens Curve Grinder ID Moise Warren 04/27/20 7:21 PM EDT [facility] Device ID [id number] 04/27/2025 7:21 PM EDT [facility] Specimen Type POC Capillary 04/27/2025 7:21 PM EDT [facility] Blood Capillary blood specimen / Unknown 04/27/2025 7:19 PM EDT 04/27/2025 7:21 PM EDT us Aarti Maldonado MD LAB POINT OF CARE TE ST DOCKED DEVICE UNSOLICITED RESULTS Final Result Performing Organization Address City/[facility]/ZIP Co de Phone Number [facility] [address] [place] [address] * (ABNORMAL) POCT glucose meter (04/27/2025 5:17 PM EDT) [facility] POCT Glucose 235(H) 74 - 99 mg/dL [...] Comment 04/27/2025 5:18 PM EDT [facility] Contact Lens Curve Grinder ID Cara Lopez 5:18 PM EDT [facility] Device ID [id number] 04/27/2025 5:18 PM EDT [facility] Specimen Type POC Capillary 04/27/2025 5:18 PM EDT [facility] Blood Capillary blood specimen / Unknown 04/27/2025 5:17 PM EDT 04/27/2025 5:18 PM EDT us Aarti Maldonado MD LAB POINT OF CARE TE ST DOCKED DEVICE UNSOLICITED RESULTS Final Result [facility] [address] [place] [address] * (ABNORMAL) Basic metabolic panel (04/27/2025 2:13 PM EDT) [facility] Glucose, Plasma 220(H) 74 - 99 mg/dL 04/27/2025 3:08 PM EDT [facility] BUN, Plasma 18 8 - 23 mg/dL 04/27/2025 3:08 PM EDT [facility] Creatinine, Plasma 0.84 0.70 - 1.20 mg/dL 04/27/2025 3:08 PM EDT [facility] BUN/Creatinine Ratio 21 04/27/2025 3:08 PM EDT [facility] Sodium, Plasma 139 136 - 145 mmol/L 04/27/2025 3:08 PM EDT [facility] Potassium, Plasma 4.0 3.6 - 4.9 mmol/L 04/27/2025 3:08 PM EDT [facility] Chloride, Plasma 105 97 - 107 mmol/L 04/27/2025 3:08 PM EDT [facility] CO2, Plasma 22 22 - 29 mmol/L 04/27/2025 3:08 PM EDT [facility] Anion Gap 12 6 - 16 mmol/L 04/27/2025 3:08 PM EDT [facility] Total Calcium, Plasma 8.7(L) 8.9 - 10.2 mg/dL 04/27/2025 3:08 PM EDT [facility] eGFRcr 96.2 mL/min/1.7 3m*2 04/27/2025 3:08 PM EDT [facility] Comment:Reported eGFRcr in m L/min/1.73m2 is based the CKD-EPI 2020 equation that does not use a race coefficient. Blood Venous blood specimen / Unknown Venipuncture / Unknown 04/27/2025 2:13 PM EDT 04/27/2025 2:39 PM EDT us Aarti Maldonado MD LAB BLOOD ORDERABLES Final R esult [facility] [address] [place] [address] * (ABNORMAL) CBC W/O Differential (04/27/2025 2:13 PM EDT) WBC Count 8.39 3.70 - 10.30 10*3/uL LAB HEMATOLOGY METHOD 04/27/2025 2:47 PM EDT [facility] RBC Count 3.93(L) 4.60 - 6.10 10*6/uL LAB HEMATOLOGY METHOD 04/27/2025 2:47 PM EDT [facility] HGB 12.1(L) 13.7 - 17.5 g/dL LAB HEMATOLOGY METHOD 04/27/2025 2:47 PM EDT [facility] HCT 37.2(L) 40.0 - 51.0 % LAB HEMATOLOGY METHOD 04/27/2025 2:47 PM EDT [facility] Platelet Count 185 155 - 369 10*3/uL LAB HEMATOLOGY METHOD 04/27/2025 2:47 PM EDT [facility] MCV 95 79 - 98 fL LAB HEMATOLOGY METHOD 04/27/2025 2:47 PM EDT [facility] MCH 30.8 26.0 - 32.0 pg LAB HEMATOLOGY METHOD 04/27/2025 2:47 PM EDT [facility] MCHC 32.5 30.7 - 35.5 g/dL LAB HEMATOLOGY METHOD 04/27/2025 2:47 PM EDT [facility] RDW 13.0 11.5 - 14.5 % LAB HEMATOLOGY METHOD 04/27/2025 2:47 PM EDT [facility] MPV 10.0 8.8 - 12.5 fL LAB HEMATOLOGY METHOD 04/27/2025 2:47 PM EDT [facility] nRBC 0.0 <=0.0 per 100 WBCs LAB HEMATOLOGY METHOD 04/27/2025 2:47 PM EDT [facility] Blood Venous blood specimen / Unknown Venipuncture / Unknown 04/27/2025 2:13 PM EDT 04/27/2025 2:39 PM EDT us Aarti Maldonado MD LAB BLOOD ORDERABLES Final R esult [facility] [address] [place] [address] * (ABNORMAL) POCT glucose meter (04/27/2025 10:07 AM EDT) POCT Glucose 159(H) 74 - 99 mg/dL 04/27/2025 10:09 AM EDT [facility] Comment:Accuracy of [...] Comment 04/27/2025 10:09 AM EDT [facility] Contact Lens Curve Grinder ID Pan Wilkins 025 10:09 AM EDT [facility] Device ID [id number] 04/27/2025 10:09 AM EDT [facility] Specimen Type POC Capillary 04/27/2025 10:09 AM EDT [facility] Blood Capillary blood specimen / Unknown 04/27/2025 10:07 AM EDT 04/27/2025 10:09 AM EDT us Aarti Maldonado MD LAB POINT OF CARE TE ST DOCKED DEVICE UNSOLICITED RESULTS Final Result [facility] [address] [place] [address] * Surgical Pathology Exam (04/27/2025 9:42 AM EDT) Case Report Surgical Pathology Case: [id number] Authorizing Provider: Aarti Maldonado MD Collected: 04/27/2025 0942 Ordering Location: [facility] A OPERATING ROOM Received: 04/27/2025 1010 Pathologist: Kary Bruce MD Specimen: Prostate, morcellated prostate 04/30/2025 10:26 AM EDT [facility] Final Diagnosis A. MORCELLATED PROSTATE, TRANSURETHRAL ENUCLEATION: - BENIGN NODULAR GLANDULAR AND STROMAL HYPERPLASIA. 04/30/2025 10:26 AM EDT [facility] at 1026 EDT Clinical Information BPH 04/30/2025 10:26 AM EDT [facility] Gross Description A. MORCELLATED PROSTATE Received in formalin labeled morcellated prostate , is an aggregate of pink-lobo to lobo-white soft tissue fragments weighing 32.0 g and measuring 5.8 x 5.5 x 2.6 cm. Nutrition Helper sections are submitted in cassettes A1 to A12. Cold Time: 28m Maribel Fields 04/30/2025 10:26 AM EDT [facility] Tissue Prostate / Unknown 9:42 AM EDT 04/27/2025 10:10 AM EDT Comment:Pre-op diagnosis: BPH us Aarti Maldonado MD LAB PATHOLOGY ORDERABLES Fin al Result Performing Organization Address [facility]/ZIP Co de Phone Number [facility] [address] [place] [address] * (ABNORMAL) POCT glucose meter (04/27/2025 6:47 [...] Comment 04/27/2025 6:49 AM EDT [facility] Contact Lens Curve Grinder ID Angeli Darden 025 6:49 AM EDT [facility] Device ID [id number] 04/27/2025 6:49 AM EDT [facility] Specimen Type POC Venous 04/27/2025 6:49 AM EDT [facility] Blood Venous blood specimen / Unknown 04/27/2025 6:47 AM EDT 04/27/2025 6:49 AM EDT us Aarti Maldonado MD LAB POINT OF CARE TE ST DOCKED DEVICE UNSOLICITED RESULTS Final Result Performing Organization Address City/State/[place] Co de Phone Number [facility] [address] [place] [address] documented in this encounter Visit Diagnoses Diagnosis BPH (benign prostatic hyperplasia) Unspecified hyperplasia of [...] needed, Starting on Wed04/27/25 at 1020, Until Wed04/28/25 at 1743, Routine, Recovery(Phase II-Outpatient)/On Unit(Inpatient), line [...] II-Outpatient)/On Unit(Inpatient) 1303 (Given - Provider: Dianna Nazraio RN) 0834 (Given - Provider: Lucy Jacobo [...] Unit(Inpatient) 1303 (Given - Provider: Dianna Nazario, MARZENA)1503 (Given - Provider: Dianna Nazario RN - Comment: pt eating late lunch)1733 (Given - Provider: Lianet Francis RN) 0834 (Given - Provider: Lucy Jacobo, MARZENA - Comment: 200 per dexcom)1242 (Given - Provider: Lucy Jacobo, MARZENA)1730 (Canceled Entry - Provider: Automatic Discharge Provider - Comment: Automatically canceled at discontinue of medication order) insulin lispro (Admelog) injection - Correction - Nighttime Dose 0-3 Units, Subcutaneous, 2 times nightly (2099 & 299), First dose on Wed04/27/25 at 2100, Until [...] II-Outpatient)/On Unit(Inpatient) 1453 (Given - Provider: Dianna Nazario, MARZENA) 0834 (Given - Provider: Lucy Jacobo, MARZENA)1242 [...] Unit(Inpatient) 1303 (Given - Provider: Dianna Nazario, RN)2022 (Given - Provider: Eugenia Lassiter, MARZENA) 0834 (Given - Provider: Lucy Jacobo RN) Continuous Medication Order 04/26/2025 04/27/2025 04/28/2025 lactated Ringer's infusion 84 mL/hr, Intravenous, Continuous, Starting on Wed04/27/25 at 1115, Until 04/28/25 at 1743, Routine 1215 (New Bag - Provider: Dianna Nazario, MARZENA)2000 (Rate/Dose Verify - Provider: Eugenia Lassiter, MARZENA)2035 (Rate/Dose Verify - Provider: Eugenia Lassiter RN) 0000 (Rate/Dose Verify - Provider: Eugenia Lassiter RN)0400 (Rate/Dose Verify - Provider: Eugenia Lassiter, MARZENA) PRN Medication Order 04/26/2025 04/27/2025 04/28/2025 acetaminophen (Tylenol) tablet 1,000 mg (COMPLETED) 1,000 mg, Oral, Once as needed, 1 dose, Starting on Wed04/27/25 at 1003, Until Wed04/27/25 at 1012, Routine, Recovery (Phase I only), pain score of >1 out of 10 1012 (Given - Provider: Dianna Nazario, MARZENA) albuterol 108 (90 Base) MCG/ACT inhaler 2 [...] Dianna Nazario RN)1024 (Given - Provider: Dianna Nazario RN) [...] muscle spasms 1834 (Given - Provider: Lianet Francis RN)2319 (Given - Provider: Eugenia Lassiter, MARZENA) oxyCODONE (Roxicodone) immediate release tablet 10 mg (COMPLETED)(Linked Group 3) 10 mg, Oral, Once as needed, 2 doses, Starting on Wed04/27/25 at 1003, Until Wed04/27/25 at 1455, Routine, Recovery (Phase I only), pain score of 6-8 out of 10 1015 (Given - Provider: Dianna Nazario RN)1455 (Given - Provider: Dianna Nazario RN) sodium [...] documented as of this encounter Care Teams Fishing Gear Mechanic Relationship Specialty Start Date End Date Ryne Bergman MD [address] [place] [address] PCP - General 04/21/24 Abiola Loyola APRN [address] [place] [address] Nurse Practitioner Urology 10/30/24 Aarti Maldonado MD [address] [place] [address] Surgeon Urology 01/10/25 documented as of this encounter
[2025-05-26 19:19] VITALS: BP 187/70; PULSE 82; RESP 16; TEMP 36.8; O2SAT 98; BMI 33.0
--- NOTE | 2025-05-26 19:19 | ED_ITS ---
<Statement entered by Cm Calvert MD - 05/27/25 02:09> I was consulted by the DAYO, and we discussed the complexity of the problems being addressed. I approve the treatment and management plan for this patient's care in the emergency department, thus performing a substantive portion of the medical decision making. Cm Calvert MD Discharge Plan Disposition Patient Disposition: Home, Self-Care Condition: Good Prescriptions Prescriptions: No Action topiramate [Topamax] 25 mg tablet 25 mg PO BID (DME) OneTouch Verio test strips Strip See Rx Instructions .ROUTE .MEDSUPPLY Qty: 10 Patient Comments: USE 1 STRIP TO CHECK GLUCOSE TWICE DAILY DIRECTED Rx Instructions: As directed rosuvastatin 20 mg tablet 20 mg PO DAILY Patient Comments: TAKE 1 TABLET BY MOUTH ONCE DAILY (DME) FreeStyle Yuliya 3 Plus Sensor Device See Rx Instructions .ROUTE .MEDSUPPLY Qty: 1 Patient Comments: USE SENSOR EVERY 15 DAYS Rx Instructions: As directed (DME) pen needle, diabetic 32 gauge x 5/32 needle See Rx Instructions .ROUTE .MEDSUPPLY Qty: 1200 Patient Comments: USE 1 PEN SUBCUTANEOUSLY THREE TIMES DAILY WITH INJECTABLE MEDICATION Rx Instructions: As directed pramipexole 1 mg tablet 1 mg PO HS Patient Comments: TAKE 1 TABLET BY MOUTH ONCE DAILY AT NIGHT tamsulosin 0.4 mg capsule 0.4 mg PO BID Patient Comments: TAKE 1 CAPSULE BY MOUTH TWICE DAILY 30 MINUTES AFTER MEAL Jardiance 10 mg tablet 10 mg PO DAILY Patient Comments: TAKE 1 TABLET BY MOUTH ONCE DAILY valsartan 320 mg tablet 320 mg PO DAILY nitroglycerin 0.4 mg tablet, sublingual 0.4 mg sublingual Q5M PRN (Reason: chest pain) Qty: 20 0RF Rx Instructions: do not exceed 3 doses per episode finasteride [Proscar] 5 mg tablet 5 mg PO DAILY Qty: 90 3RF metoprolol succinate 25 mg tablet extended release 24 hr 25 mg PO DAILY Qty: 30 5RF pioglitazone [Actos] 45 mg Tablet 45 mg PO DAILY insulin lispro protamin-lispro 100 unit/mL (75-25) Insulin Pen 0 unit SQ DIRECTED Rx Instructions: 60 UNITS IN AM, 30 UNITS AT NOON, 60 UNITS AT BEDTIME fluoxetine 60 mg Tablet 60 mg PO DAILY metformin 750 mg tablet extended release 24 hr 750 mg PO DAILY Patient Comments: TAKE 1 TABLET BY MOUTH ONCE DAILY WITH BREAKFAST albuterol sulfate 90 mcg/actuation HFA aerosol inhaler 1 inh inhalation Q6HP PRN (Reason: Shortness Of Breath) nifedipine 90 mg tablet extended release 60 mg PO DAILY Qty: 30 2RF lidocaine 5 % adhesive patch,medicated 1 patch topical DAILY Qty: 15 0RF Rx Instructions: leave on most painful area for up to 12 hrs aspirin 81 mg capsule 81 mg PO DAILY Qty: 30 0RF Referrals Follow up/Referrals: Ryne Bergman MD [Primary Care Provider, Medical] - See instructions Activity Restrictions/Add. Instructions Additional Instructions/Restrictions: Please follow-up with urologist this week, please return to the emergency department with any worsening signs or symptoms or any further issues with your Schwartz catheter. Clinical Impressions Clinical Impression: Complication of Schwartz catheter, Hematuria Instructions Patient Instructions: How to Care for Your Schwartz Catheter -- Male, DI for Hematuria, DI for Urinary Retention in Men Print Language Print Language: Hong Konger Discharge ED Provider: Cm Calvert Adult HPI General Chief complaint: Urogenital-Male Stated complaint: F/C leaking Time Seen by Provider: 05/26/25 19:10 Mode of Arrival: Ambulatory Source of Information: Patient Limitations: No Limitations History of Present Illness HPI narrative: 64-year-old male presents the emergency department with a Schwartz catheter malfunction/concerns of Schwartz catheter leaking , patient was seen in the emergency department last night and had the Schwartz catheter placed for acute urinary retention, has slated follow-up with his urologist this week. He initially presented with a 1 month history of suprapubic/pelvic pain, acute urinary retention/decreased urination as well as hematuria, over the last several days, had urine culture sent, patient denies any new acute symptomatology, no fever no chills no chest pain, abdominal pain, no vomiting no diarrhea no constipation, patient has been able to void, and had the majority of his urine feeling his leg bag, however he does state that he has had several episodes of leaking around his urethra, initial triage vitals unremarkable, other past medical history consistent with CAD, current smoker, denies any alcohol or drug use, hyperlipidemia, hypertension, CHF, BPH, T2DM, NATACHA. Please note that above description of symptoms, in this electronic medical record under categorization of recalled from ER triage doctor by RN are reflective of an initial nursing assessment, however, is not reflective of my full history and physical exam that was personally taken and clarified. Consequentially, this preceding description of symptoms, which may include the patient's categorized chief complaint in the EMR, do not reflect my personal cl inical impression, and the ultimate description of history of present illness and patient stated complaints should be deferred to this section of the note. Unless stated otherwise or congruent with this section of the note, additional signs, symptoms, or incongruence should be interpreted as inaccurate with my clinical impression. Onset (ago): hour(s) Related Data Home Medications ?Medication ?Instructions ?Recorded ?Confirmed topiramate 25 mg tablet (Topamax) 25 mg PO BID 8 04/26/25 fluoxetine 60 mg tablet 60 mg PO DAILY 03/17/2403/29 insulin lispro protamine-lispro 0 unit SQ DIRECTED 03/17/24 04/26/25 100 unit/mL (75-25) subcutaneous pen pioglitazone 45 mg tablet (Actos) 45 mg PO DAILY 03/1704/26/25 blood sugar diagnostic (OneTouch #10 ea 01/25/2504/26 Verio test strips) blood-glucose sensor (FreeStyle #1 ea 01/25/25 5 Yuliya 3 Plus Sensor device) empagliflozin 10 mg tablet 10 mg PO DAILY 01/25/25 (Jardiance) pen needle, diabetic 32 gauge x #1,200 ea 01/25/25 pramipexole 1 mg tablet 1 mg PO HS 01/25/25 04/26/25 rosuvastatin 20 mg tablet 20 mg PO DAILY 01/25/2503/29 tamsulosin 0.4 mg capsule 0.4 mg PO BID 01/25/2504/26 valsartan 320 mg tablet 320 mg PO DAILY 01/25/25 albuterol sulfate 90 mcg/actuation 1 inh inhalation Q6 HP PRN 03/11/25 04/26/25 aerosol inhaler Shortness Of Breath metformin 750 mg tablet,extended 750 mg PO DAILY 03/1104/26/25 release 24 hr Previous Rx's ?Medication ?Instructions ?Recorded finasteride 5 mg tablet (Proscar) 5 mg PO DAILY #90 ta bs 11/20/24 aspirin 81 mg capsule 81 mg PO DAILY #30 caps 12/26 04/20 nifedipine 90 mg tablet,extended 60 mg (0.6667 x 90 mg ) PO DAILY 03/11/25 release #30 tabs nitroglycerin 0.4 mg sublingual 0.4 mg sublingual Q5M PRN chest 03/13/25 tablet pain #20 tabs metoprolol succinate 25 mg 25 mg PO DAILY #30 tabs tablet,extended release 24 hr lidocaine 5 % topical patch 1 patch topical DAILY #15 ea 04/25/25 Allergies Allergy/AdvReac Type Severity Reaction Status Date / Time oxybutynin Allergy Severe angioedema Verified 04/26/25 10:35 morphine (MORPHINE) Allergy Unknown Verified 04/26/25 10:35 [facility] Disclaimer: The information contained in this section may have been updated after the patient was seen, as this information can be updated by other users. Medical History Other hyperlipidemia Other forms of dyspnea Abnormal echocardiogram Coronary artery disease Chronic neck and back pain TIA (transient ischemic attack) Urinary tract infection Anxiety and depression Hyperlipidemia Hypertension H/O carpal tunnel syndrome Diabetes mellitus, type 2 Sleep apnea History of chest pain Surgical History H/O discectomy History of cholecystectomy Family History Other Bone cancer Kidney failure Lung cancer Social History Smoking Status: Current every day smoker tobacco type: cigarettes smoking status start date: 2023 quit status: has quit before alcohol intake: never substance use type: denies use current occupational status: other Travel in the last 8 weeks?: None household members: spouse housing: house current occupational exposures/hazards: No caffeine: Yes Have you lived/traveled outside US in past 30 days?: No Contact w/someone who lives/traveled outside US past 30 days?: No Exposure to someone with infectious disease in past 14 days?: No Do you have a fever (greater than 100.4 F or 38 C)?: No Have you tested positive for COVID-19?: No Exposed to someone with COVID-19 in past 14 days?: No Do you have a sore throat?: No Do you have a cough?: No Do you have any weakness?: No Do you have any diarrhea?: No Are you experiencing any unusual bleeding?: No Do you have any muscle aches/pain?: No Do you have any abdominal pain?: No Are you experiencing loss of taste or smell?: No Other Medical History Have you received the Flu Vaccine for this season: No Have you received the Pneumonia Vaccine: Yes ROS Obtained: Yes All systems reviewed & no additional complaints except as documented Physical Exam General General appearance: alert and in no apparent distress Head Head exam: atraumatic and normocephalic Eye Eye exam: Present PERRL and EOMI ENT ENT exam: Present mucous membranes moist Neck Neck exam: Present normal inspection Chest Chest inspection: Present normal inspection and symmetric chest wall rise Respiratory Respiratory exam: Present normal lung sounds bilaterally; Absent respiratory distress Cardiovascular Cardiovascular exam: Present regular rate and normal rhythm Abdominal Exam Abdominal exam: Present soft and distention; Absent tenderness, guarding, rebo und or rigidity exam: Present normal inspection; Absent urethral discharge, scrotal swelling or circumcised Extremities Exam Extremities exam: Present normal inspection Neurological Exam Neurological exam: Present alert and oriented X3 Psychiatric Psychiatric exam: Present normal affect Skin Skin exam: Present warm and dry Medical Decision Making Medical Records Medical records reviewed: Yes I reviewed the patient's medical records. Screening: Per USPSTF and CDC recommendations, given the prevalence of disease in our region, it is our hospital?s policy to screen for HIV and viral Hepatitis for all patients aged 18 and over and those with ongoing risk factors. Jay Inquiry Pt receiving controlled substance: No Jay was queried for this patient: No Vital Signs: 05/26/25 19:19 Temperature 98.2 F Temperature Source Oral Pulse Rate [Right] 82 Respiratory Rate 16 Blood Pressure [Right Arm] 187/70 H Blood Pressure Mean [Right Arm] 109 Blood Pressure Source [Right Arm] Automatic Cuff Blood Pressure Position [Right Arm] Sitting 02 Sat by Pulse Oximetry 98 Oxygen Delivery Method Room Air Medical Decision Narrative: 64-year-old male presents the emergency department with Schwartz catheter leaking, differential diagnose include but not limited to, Schwartz catheter malfunction, Schwartz catheter malplacement, acute urinary retention, among others. I discussed this patient's case with attending physician Will troubleshoot the patient's Schwartz catheter via nursing staff, with flushing, and BladderScan the patient. Nursing staff remove the previous Schwartz catheter and was able to place a 22 [place] catheter and copiously irrigated the patient's bladder, with numerous flushes to the new Schwartz catheter. Patient tolerated well, did have some decrease hematuria, now still having gross hematuria, patient hemoglobin hematocrit checked last night, patient has ongoing hematuria for the last 1 to 2 months, patient has follow-up with urology in the upcoming days, patient was given strict ED return precautions. Patient was instructed to follow-up with urologist in the upcoming days/weeks. Patient voiced understanding. Critical Care Critical Care Time Critical Care Time: No
--- OUTSIDE RECORDS SUMMARY | 2025-05-26 19:20 | XMS_ITS | Encounter Summary ---
Author Organization [facility] Address [address] [place] [address] Care Team Providers Care Solar Photovoltaic Electrician Name Role Phone Ryne Bergman MD Primary Care Provider Abiola Loyola APRN Unavailable [phone] Aarti Maldonado MD Unavailable [phone] Encounter Details Date Type Department Care Team [...] Visit Medical Office Building Urology [address] [facility], [address] [place] [address] Aarti Maldonado MD [address] [facility] [address] [place] [address] documented as of this encounter [...] documented as of this encounter Care Teams Solar Photovoltaic Electrician Relationship Specialty Start Date End Date Ryne Bergman MD [address] [place] [address] PCP - General 04/21/24 Abiola Loyola APRN [address] [facility] [place] [address] Nurse Practitioner Urology 10/30/24 Aarti Maldonado MD [address] [facility] [place] [address] Surgeon Urology 01/10/25 documented as of this encounter
--- OUTSIDE RECORDS SUMMARY | 2025-05-26 19:20 | XMS_ITS | Encounter Summary ---
Author Organization [facility] Address [address] [place] [address] Care Team Providers Care Manager Unit Name Role Phone Ryne Bergman MD Primary Care Provider + Encounter Details Date Type Department Care Team (Late st Contact Info) Description 04/10/2025 Patient Outreach [facility], [address] [place] [address] Social History Tobacco Use Types Packs/Day Years [...] improved diet. Patient states to have had telecom manager referral and received helpful information regarding diet. [...] [facility] [address] [place] [address] Ryne Bergman MD [address] [place] [address] 03/14/2026 2:15 PM EDT Office Visit [facility] [address] [place] [id number] Ryne Bergman MD [address] [place] [address] documented as of this encounter Visit Diagnoses Not on filedocumented in this encounter Additional Health Concerns Assessment Noted Time PHQ-2 Depression Total Score: 2 11/23/19 24 10:16 AM EST documented as of this encounter Care Teams Manager Unit Relationship Specialty Start Date End Date Pacheco, Ryne Javy, MD [address] [facility] [place] [address] PCP - General Family Medicine 01/08/22 documented as of this encounter
--- OUTSIDE RECORDS SUMMARY | 2025-05-26 19:21 | XMS_ITS | Encounter Summary ---
Author Organization Healthcare Address [address] [place] [address] Care Team Providers Care Welcome Wagon Hostess Name Role Phone Ryne Bergman MD Primary Care Provider [phone] bAiola Loyola APRN Unavailable [phone] Aarti Maldonado MD Unavailable [phone] Encounter Details Date Type Department Care Team ([facility] Contact Info) Description 10/30/2019 Orders Only External Location [address] [place] [id number] Provider, External Social History Tobacco Use Types [...] Medical Office Building Urology [address] [facility], [address] [place] [address] Aarti Maldonado MD [address] [facility] [address] [place] [address] documented as of this encounter [...] on filedocumented in this encounter Care Teams Welcome Wagon Hostess Relationship Specialty Start Date End Date Ryne Bergman MD [address] [place] [address] PCP - General 04/21/24 Abiola Loyola APRN [address] [address] Nurse Practitioner Urology 10/30/24 Aarti Maldonado MD [address] [place] [address] Surgeon Urology 01/10/25 documented as of this encounter
--- OUTSIDE RECORDS SUMMARY | 2025-05-26 19:21 | XMS_ITS | Encounter Summary ---
Author Organization [facility] Address [address] [place] [address] Care Team Providers Care Automotive Detailer Name Role Phone Ryne Bergman MD Primary Care Provider Abiola Loyola MEDICAL BILLING INSTRUCTOR Unavailable [phone] Aarti Maldonado MD Unavailable [phone] Reason for Visit * Reason Onset Date Comments HCN Clinical Concern/Question 05/11/2025 Encounter Details Date Type Department Care Team (Late st Contact Info) Description 05/11/2025 Telephone [facility] [address] [place] [address] Aarti Maldonado MD [address] [place] [address] HCN Clinical Concern/Question Social History [...] * Telephone Encounter - Chung, Renee B, NEUROPSYCHOLOGY MEDICAL CONSULTANT - 05/14/2025 9:08 AM EDT I called and spoke with the patient. I relayed the message and appreciated the call back. * Telephone Encounter - Tiffany Ocampo RN - 05/11/2025 4:37 PM EDT I contacted Ramsey Castrejon by phone at [phone]. Patient had another blood clot in his urine. It had been a while since he had seen one and he was calling to ask if it was normal. Per discharge instructions, I told him that it is expected to have blood in the urine for up to 2-3 months after HoLEP procedure. Patient verbalized understanding to [facility] Emergency [facility] if unable to urinate. Patient [...] Today he had one. Best contact number: [phone] (mobile) Optimal time of day to reach caller: ANYTIME Additional comments/information from caller: None Note: Please do not reply to this message. Follow-up communication and further actions as a result of this message need to be communicated with the patient directly, if the patient is not active onMyChart. If the patient is active on MyChart, they will receive notification of the communication/outcome via Pipert. documented in this encounter Plan of Treatment Upcoming Encounters Date Type Department Care Team (Late st Contact Info) Description 06/20/2025 12:30 PM EDT Office Visit Medical Office Building Urology [address] [facility], [address] [place] [address] Aarti Maldonado MD [address] [address] documented as of this encounter [...] as of this encounter Care Teams Automotive Detailer Relationship Specialty Start Date End Date Ryne Bergman MD [address] [place] [address] PCP - General 04/21/24 Abiola Loyola APRN [address] [address] Nurse Practitioner Urology 10/30/24 Aarti Maldonado MD [address] [address] Surgeon Urology 01/10/25 documented as of this encounter
--- OUTSIDE RECORDS SUMMARY | 2025-05-26 19:21 | XMS_ITS | Encounter Summary ---
[facility] [address] [place] [address] Care Team Providers Care Resort Keeper Name Role Phone Ryne Bergman MD Primary Care Provider + Reason for Visit * Reason Comments Med Refill Encounter Details Date Type Department Care Team (Late st Contact Info) Description 05/21/[address] [facility] [address] [place] [address] Ryne Bergman MD [address] [place] [address] Primary hypertension Social History Tobacco [...] EDT Office Visit [facility] [address] [place] [address] Ryne Bergman MD [address] [place] [address] 03/14/2026 2:15 PM EDT Office Visit [facility] [address] [place] [address] Ryne Bergman MD [address] [place] [address] documented as of this encounter Visit Diagnoses Diagnosis Primary hypertension Unspecified essential hypertension documented in this encounter Additional Health Concerns Assessment Noted Time PHQ-2 Depression Total Score: 2 11/23/19 24 10:16 AM EST documented as of this encounter Care Teams Resort Keeper Relationship Specialty Start Date End Date Ryne Bergman MD [address] [place] [address] PCP - General Family Medicine 01/08/22 documented as of this encounter
--- OUTSIDE RECORDS SUMMARY | 2025-05-26 19:21 | XMS_ITS ---
[facility] Address [address] [place] [address] Care Team Providers Care Furnace Operator Oil Or Gas Name Role Phone Ryne Bergman MD Primary Care Provider + High Risk Care Management Status:Engaged (Active) Start date:03/08/2025 Enrollment date:03/13/2025 Enrollment reason:Identified using claims or encounter data Related social drivers of health:Social Connections, Financial Resource Strain, Stress, Physical Activity, Food Insecurity, Transportation Needs, Housing Stability Overview Esa OLIVAS A1C Case Team Name Relationship Phone Sandrita Kate RN(Responsible Staff) Ambulator y Coding File Clerk [phone] Continued Care and Services Coordination
--- OUTSIDE RECORDS SUMMARY | 2025-05-26 19:21 | XMS_ITS | Encounter Summary ---
Author Organization [facility] Address [address] [place] [address] Care Team Providers Care Bobbin Painter Name Role Phone Ryne Bergman MD Primary Care Provider [phone] Abiola Loyola APRN Unavailable [phone] Aarti Maldonado MD Unavailable [phone] Encounter Details Date Type Department Care Team (Late st Contact Info) Description 04/19/2025 Telephone [facility] [address] [place] [address] Aarti Maldonado MD [address] [place] [address] Social History Tobacco Use Types [...] 9:25 AM EDT Spoke with Lab at [facility] , they are to fax urine culture results documented in this encounter Plan of Treatment Upcoming Encounters Date Type Department Care Team (Late st Contact Info) Description 06/20/2025 12:30 PM EDT Office Visit Medical Office Building Urology [address] [facility], [address] [place] [address] Aarti Maldonado MD [address] [place] [address] documented as of this encounter Visit [...] as of this encounter Care Teams Bobbin Painter Relationship Specialty Start Date End Date Ryne Bergman MD [address] [place] [address] PCP - General 04/21/24 Abiola Loyola APRN [address] [address] Nurse Practitioner Urology 10/30/24 Aarti Maldonado MD [address] [place] [address] Surgeon Urology 01/10/25 documented as of this encounter
--- OUTSIDE RECORDS SUMMARY | 2025-05-26 19:21 | XMS_ITS | Encounter Summary ---
Author Organization [facility] Address [address] [place] [address] Care Team Providers Care Core Java Engineer Name Role Phone Ryne Bergman MD Primary Care Provider [phone] Abiola Loyola APRN Unavailable [phone] Aarti Maldonado MD Unavailable [phone] Encounter Details Date Type Department Care Team (Late Contact Info) Description 02/10/2024 Orders Only External Location [address] [place] [address] Nicole Bernstein, DO [address] [place] [address] Social History Tobacco Use Types [...] Medical Office Building Urology [address] [facility], [address] [place] [address] Aarti Maldonado MD [address] [facility] [address] [place] [address] documented as of this encounter [...] on filedocumented in this encounter Care Teams Core Java Engineer Relationship Specialty Start Date End Date Ryne Bergman MD [address] [place] [address] PCP - General 04/21/24 Abiola Loyola APRN [address] [place] [address] [place] [address] Nurse Practitioner Urology 10/30/24 Aarti Maldonado MD [address] [place] [address] [place] [address] Surgeon Urology 01/10/25 documented as of this encounter
--- OUTSIDE RECORDS SUMMARY | 2025-05-26 19:21 | XMS_ITS | Encounter Summary ---
Author Organization [facility] yste Address [address] [place] [address] Care Team Providers Care Central Lab Technician Name Role Phone Ryne Bergman MD Primary Care Provider + Encounter Details Date Type Department Care Team (Late st Contact Info) Description 05/18/2025 Patient Outreach [facility] MARZENA [address] [place] [address] Social History Tobacco Use Types Packs/Day Years [...] to be following diet as directed per armor reconnaissance specialist; states no longer drink sodasand increased intake of water. Reviewed with patient education and verbalized understanding. Patient states to appreciate outreach. No further questions voiced at this time. Education Documentation When to Seek Medical Attention, taught by Sandrita Kate RN at 05/18/2025 [...] 3:[address]T Office Visit [facility] MED[facility]INE [address] [place] [address] Ryne Bergman MD [address] [place] [address] 03/14/2026 2:15 PM EDT Office Visit [facility] MED[facility] [address] [place] [phone] Ryne Bergman MD [address] [place] [address] documented as of this encounter Visit Diagnoses Not on filedocumented in this encounter Additional Health Concerns Assessment Noted Time PHQ-2 Depression Total Score: 2 11/23/19 24 10:16 AM EST documented as of this encounter Care Teams Central Lab Technician Relationship Specialty Start Date End Date Ryne Bergman MD [address] [place] [address] PCP - General Family Medicine 01/08/22 documented as of this encounter
--- OUTSIDE RECORDS SUMMARY | 2025-05-26 19:22 | XMS_ITS | Encounter Summary ---
Author Organization [facility] Address [address] [place] [address] Care Team Providers Care Master In Chancery Name Role Phone Ryne Bergman MD Primary Care Provider [phone] Abiola Loyola APRN Unavailable [phone] Aarti Maldonado MD Unavailable [phone] Encounter Details Date Type Department Care Team (Late st Contact Info) Description 05/01/2025 Telephone [facility] [address], [address] [place] [phone] Ingrid Puckett I, RN [facility] Social History Tobacco Use [...] EDT Office Visit Medical Office Building Urology [facility] [address] [facility], [address] [place] [address] Aarti Maldonado MD [address] [address] documented as of this encounter [...] documented as of this encounter Care Teams Master In Chancery Relationship Specialty Start Date End Date Ryne Bergman MD [address] [place] [address] PCP - General 04/21/24 Abiola Loyola APRN [address] [phone] Nurse Practitioner Urology 10/30/24 Aarti Maldonado MD [address] [place] [address] Surgeon Urology 01/10/25 documented as of this encounter
--- OUTSIDE RECORDS SUMMARY | 2025-05-26 19:22 | XMS_ITS | Encounter Summary ---
Author Organization [facility] Address [address] [place] [address] Care Team Providers Care Torch Burner Name Role Phone Ryne Bergman MD Primary Care Provider [phone] Abiola Loyola WIRE DRAWING SETTER Unavailable [phone] aArti Maldonado MD Unavailable [phone] Encounter Details Date Type Department Care Team (Late Contact Info) Description 04/16/2025 Telephone [place] [facility] [address], [address] [place] [address] Aarti Maldonado MD [address] [place] [address] Social History Tobacco Use [...] [facility], [address] [place] [phone] Aarti Maldonado MD [address] [place] [address] documented as of this [...] documented as of this encounter Care Teams Torch Burner Relationship Specialty Start Date End Date Ryne Bergman MD [address] [place] [address] PCP - General 04/21/24 Abiola Loyola APRN [address] [place] [address] Nurse Practitioner Urology 10/30/24 Aarti Maldonado MD [address] [place] [address] Surgeon Urology 01/10/25 documented as of this encounter
--- OUTSIDE RECORDS SUMMARY | 2025-05-26 19:23 | XMS_ITS | Encounter Summary ---
Author Organization Address [address] [place] [address] Care Team Providers Care Drilling Rig Operator Name Role Phone Ryne Bergman MD Primary Care Provider [phone] Abiola Loyola APRN Unavailable [phone] Aarti Maldonado MD Unavailable [phone] Encounter Details Date Type Department Care Team [...] Visit Medical Office Building Urology [address] [facility], [address] [place] [address] Aarti Maldonado MD [address] [place] [address] documented as of this [...] documented as of this encounter Care Teams Drilling Rig Operator Relationship Specialty Start Date End Date Ryne Bergman MD [address] [place] [address] PCP - General 04/21/24 Abiola Loyola APRN [address] [place] [address] Nurse Practitioner Urology 10/30/24 Aarti Maldonado MD [address] [place] [address] Surgeon Urology 01/10/25 documented as of this encounter
--- OUTSIDE RECORDS SUMMARY | 2025-05-26 19:24 | XMS_ITS | Encounter Summary ---
Author Organization [facility] yste Address [address] [place] [address] Care Team Providers Care Instrumentation Technologist Name Role Phone Ryne Bergman MD Primary Care Provider + Reason for Visit * Reason Comments Med Refill Encounter Details Date Type Department Care Team (Late st Contact Info) Description 04/02/2023 Refill [facility] MED[facility]INE [address] [place] [address] Ryne Bergman MD [address] [place] [address] Type 2 diabetes mellitus with [...] Description 06/12/2025 3:00 PM EDT Office Visit [facility] MEDICINE [address] [place] [address] Ryne Bergman MD [address] [place] [address] 03/14/2026 2:15 PM EDT Office Visit [facility] MEDICINE [address] [place] [address] Ryne Bergman MD [address] [place] [address] documented as of this encounter Visit Diagnoses Diagnosis Type 2 diabetes mellitus with hyperglycemia, with long-term current use of insulin documented in this encounter Additional Health Concerns Assessment Noted Time PHQ-2 Depression Total Score: 2 11/12/19 23 12:00 PM EST documented as of this encounter Care Teams Instrumentation Technologist Relationship Specialty Start Date End Date Ryne Bergman MD [address] [place] [address] PCP - General Family Medicine 01/08/22 documented as of this encounter
--- OUTSIDE RECORDS SUMMARY | 2025-05-26 19:24 | XMS_ITS | Encounter Summary ---
Author Organization [facility] yste Address [address] [place] [address] Care Team Providers Care Access Rn Name Role Phone Ryne Bergman MD Primary Care Provider + Encounter Details Date Type Department Care Team (Late st Contact Info) Description 02/04/2025 Results Follow-Up [facility] MEDICINE [address] [place] [address] Ryne Bergman MD [address] [place] [address] Social History Tobacco Use Types [...] EDT Office Visit [facility] MEDICINE [address] [place] [address] Ryne Bergman MD [address] [place] [address] 03/14/2026 2:15 PM EDT Office Visit [facility] MEDICINE [address] [place] [address] Ryne Bergman MD [address] [place] [address] documented as of this encounter Visit Diagnoses Not on filedocumented in this encounter Additional Health Concerns Assessment Noted Time PHQ-2 Depression Total Score: 2 11/23/19 24 10:16 AM EST documented as of this encounter Care Teams Access Rn Relationship Specialty Start Date End Date Ryne Bergman MD [address] [place] [address] PCP - General Family Medicine 01/08/22 documented as of this encounter
--- OUTSIDE RECORDS SUMMARY | 2025-05-26 19:24 | XMS_ITS | Clinical Summary ---
Author Organization [facility] yste Address [address] [place] [address] Care Team Providers Care Field Technical Assistant Name Role Phone Ryne Bergman MD [...] given forms for patient assistance program from [employer] for Oz[employer]. Patient will complete and return [...] Type Department Care Team Description 05/21/2025 Refill [facility] FAM[facility] MEDICINE [address] [place] [address] Ryne Bergman MD Primary hypertension 05/18/2025 Patient Outreach [facility] Sandrita Logan, MARZENA 04/10/2025 Patient Outreach [facility] Sandrita Logan, MARZENA 03/24/2025 Refill [facility] MEDICINE [address] [place] [address] Ryne Bergman MD Type 2 diabetes mellitus with hyperglycemia, with long-term current use of insulin 03/13/2025 Patient Outreach [facility] Sandrita Logan, MARZENA 03/12/2025 2:15 PM EDT Office Visit [facility] MEDICINE [address] [place] [address] Ryne Bergman MD Medicare annual wellness visit, subsequent (Primary Dx); Annual physical exam; Type 2 diabetes mellitus with hyperglycemia, with long-term current use of insulin 03/12/2025 Travel 03/02/2025 Refill [facility] [address] [place] [...] History Relation Name Comments Alcohol abuse Father [place] Father [place] Lung & bone c ancer Alcohol abuse Mother [place] [facility] Mother [place] Lung & bone c ancer Relation Name Status Comments Father [place] Alive Mother [place] Alive Social History Tobacco Use Types [...] Description 06/12/2025 3:00 PM EDT Office Visit [facility] [address] [place] [address] Ryne Bergman MD [address] [place] [address] 03/14/2026 2:15 PM EDT Office Visit [facility] [address] [place] [address] Ryne Bergman MD [address] [place] [address] Health Maintenance Due Date Last Done [...] Date/Time Associated Diagnosis Comments SCANNED - LABS 05/25/2025 SCANNED - LABS 05/25/2025 SCANNED - LABS 05/25/2025 SCANNED - LABS 05/25/2025 SCANNED - IMAGING 04/18/2025 SCANNED - LABS [...] to Health Maintenance Results * LABS SCANNED (05/25/2025) Only the most recent of9 resultswithin the time period is included. us Ryne Bergman MD LAB BLOOD ORDERABLES Fin al Result * IMAGING SCANNED (04/18/2025) Only the most recent of3 resultswithin the time period is included. Anatomical Region Laterality Modality Radiographic Mansi ging us Ryne Bergman MD IMG DIAGNOSTIC IMAGING O RDERABLES Final Result * (ABNORMAL) POC Glycosylated Hemoglobin (Hb A1C) (03/12/2025 2:55 PM EDT) Hemoglobin A1C 8.3(A) 4.5 - 5.7 % [facility] Lot Number [id number] [facility] Expiration Date 11/13/2026 [facility] Blood 03/12/2025 2:55 PM EDT Ryne Bergman MD POINT OF CARE TEST ORDER MICHELL Final Result [facility]
[address] [place] [address], * CT Chest Low Dose Cancer Screening [...] MD 02/02/2025 10:03 AM EDT Workstation ID: [id number] Narrative 02/02/2025 10:[address] CHEST [...] MD 02/02/2025 10:03 AM EDT Workstation ID: [id number] Ryne Bergman MD IMG CT ORDERABLES Final [...] Most Recently Relevant to Health Maintenance Insurance [employer] HMO Care Teams Field Technical Assistant Relationship Specialty Start Date End Date Ryne Bergman MD [place] [address] PCP - General Family Medicine 01/08/22
--- OUTSIDE RECORDS SUMMARY | 2025-05-26 19:24 | XMS_ITS | Clinical Summary ---
Author Organization [facility] Address [address] [place] [address] Care Team Providers Care Auto Service Representative Name Role Phone Ryne Bergman MD Primary Care Provider Abiola Loyola APRN Unavailable [phone] Aarti Maldonado MD Unavailable [phone] Allergies Active Allergy Reactions Criticality Noted Date [...] Type Department Care Team Description 05/11/2025 Telephone [facility] Urology [address] [place] [address] Aarti Maldonado MD HCN Clinical Concern/Question 05/01/2025 Telephone [facility] Urology [address] [address] Ingrid Puckett RN 04/27/2025 7:30 AM EDT - 04/27/2025 9:45 AM EDT Surgery [facility] [address] [place] [phone] Aarti Maldonado MD ENUCLEATION, PROSTATE, TRANSURETHRAL, USING HOLMIUM LASER [60586 (CPT )] 04/27/2025 7:29 AM EDT Anesthesia Event [facility] [address] [place] [phone] Lavon Jimenes MD 04/27/2025 5:38 AM EDT - 04/28/2025 3:43 PM EDT Hospital Encounter [facility] Inpatient [address] [place] [address] Aarti Maldonado MD BPH (benign prostatic hyperplasia) Discharge Disposition: Home or Self Care 04/27/2025 Travel 04/20/2025 Travel 04/19/2025 Telephone [facility] Urology [address], [address] [place] [address] Aarti Maldonado MD 04/16/2025 Telephone [facility] Urology [address], [address] [place] [address] Aarti Maldonado MD 04/02/2025 Telephone [facility] Urology [address], [address] [place] [address] Aarti Maldonado MD 03/23/2025 Telephone [facility] Urology [address], [facility] [place] [address] Aarti Maldonado MD 03/14/2025 2:45 PM EDT Pre-Admission Testing [facility] Pre-op Clinic [address], [address] [place] [address] Preop examination (Primary Dx) 03/14/2025 Telephone [facility] Urology [address], [facility] [place] [address] Aarti Maldonado MD 03/14/2025 Travel 03/12/2025 8:03 AM EDT - 03/12/2025 11:59 PM EDT Hospital Encounter [facility] Radiology [address] [place] [address] Benign prostatic hyperplasia with urinary frequency Discharge Disposition: Home or Self Care 03/12/2025 7:40 AM EDT - 03/12/2025 8:02 AM EDT Hospital Encounter [facility] Radiology [address] [place] [address] Benign prostatic hyperplasia with urinary frequency Discharge Disposition: Home or Self Care 03/12/2025 Results Follow-Up Medical Office Building Urology [address] [facility], [address] [place] [address] Aarti Maldonado MD 03/12/2025 Telephone [facility] Urology [address], [place] [address] Aarti Maldonado MD 03/09/25 Final Urine culture results 03/12/2025 Travel 03/09/2025 Orders Only [facility] Urology [address] [place] [address], [place] [address] Aarti Maldonado MD 03/09/2025 Telephone [facility] Urology [address] [place] [address], [address] [place] [address] Aarti Maldonado MD HCN Clinical Concern/Question 03/08/2025 Orders Only [facility] Urology [address] [place] [address], [address] [place] [address] Aarti Maldonado MD Microhematuria (Primary Dx) 03/08/2025 Telephone [facility] [address], [address] [place] [address] Aarti Maldonado MD 03/05/25 Urine culture results from [facility] from Last 3 Months Immunizations Immunization Administration Dates Next Due Hep A, Adult 07/30/2018 Influenza, injectable, quadr ivalent, preservative free 08/24/2023,07/28/2022,08/23/2019,07/30 Pneumococcal 20-edinson Conj Vaccine 11/23/2023 Pneumococcal Polysaccharide PPV23 07/25/2018 Family History Medical History Relation Name Comments Cancer Father [place] Hypertension Mother Tawnya [place] Kidney disease Mother Tawnya Cash Anesthesia problems Neg Hx Malig Hyperthermia Neg Hx Relation Name Status Comments Father [place] Mother Tawnya Cash Social History Tobacco Use [...] Sign Reading Time Taken Comments Blood Pressure 144/65 05/25/2025 8:14 AM EDT Pulse 78 05/25/2025 8:14 AM EDT Temperature 36.8 C (98.2 F) 05/25/2025 8:14 AM EDT Respiratory Rate 16 05/25/2025 8:14 AM EDT Oxygen Saturation 98% 05/25/2025 8:14 AM EDT RA Inhaled Oxygen Concentration - - Weight 107 kg (234 lb 15.8 oz) 04/27/2025 4:22 P M EDT Height 175.3 cm (5' 9.02 ) 04/27/2025 4:22 PM ED T Body Mass Index 34.69 04/27/2025 4:22 PM EDT Plan of Treatment Upcoming Encounters Date Type Department Care Team ([facility] st Contact Info) Description 06/20/2025 12:30 PM EDT Office Visit Medical Office Building Urology [address] [facility], [address] [place] [address] Aarti Maldonado MD [address] [facility] [address] [place] [address] Health Maintenance Due Date Last [...] 2023 [facility]-Diabetes: Hemoglobin A1C 05/22/2024 11/23/2023, 07/28/2022 [id number] Vaccine ( season) 2024 03/07/2021, 02/07/2021 [facility]-Influenza [...] this topic Medical Devices Implanted Type Area Restoration Officer Device Identifier Shelf Expiration Date Model / [...] ANESTHESIA PLACEHOLDER Routine 04/27/2025 7:36 AM EDT DE AN ELECTIVE ENDOTRACHEAL AIRWAY Routine 04/27/2025 7:36 AM EDT DE LASER ENUCLEATION PROSTATE W MORCELLATION 04/27/2025 7:14 AM EDT BPH (benign prostatic hyperplasia) Special Needs Will need FORT - masterpulse holmium laser, piranha morcellator and [...] LAB HEMATOLOGY METHOD 04/28/2025 5:03 AM EDT [facility] RBC Count 3.88(L) 4.60 - 6.10 10*6/uL LAB HEMATOLOGY METHOD 04/28/2025 5:03 AM EDT [facility] HGB 11.7(L) 13.7 - 17.5 g/dL LAB HEMATOLOGY METHOD 04/28/2025 5:03 AM EDT [facility] HCT 37.4(L) 40.0 - 51.0 % LAB HEMATOLOGY METHOD 04/28/2025 5:03 AM EDT [facility] Platelet Count 135(L) 155 - 369 10*3/uL LAB HEMATOLOGY METHOD 04/28/2025 5:03 AM EDT [facility] MCV 96 79 - 98 fL LAB HEMATOLOGY METHOD 04/28/2025 5:03 AM EDT [facility] MCH 30.2 26.0 - 32.0 pg LAB HEMATOLOGY METHOD 04/28/2025 5:03 AM EDT [facility] MCHC 31.3 30.7 - 35.5 g/dL LAB HEMATOLOGY METHOD 04/28/2025 5:03 AM EDT [facility] RDW 13.1 11.5 - 14.5 % LAB HEMATOLOGY METHOD 04/28/2025 5:03 AM EDT [facility] MPV 10.2 8.8 - 12.5 fL LAB HEMATOLOGY METHOD 04/28/2025 5:03 AM EDT [facility] nRBC 0.0 <=0.0 per 100 WBCs LAB HEMATOLOGY METHOD 04/28/2025 5:03 AM EDT [facility] Blood Venous blood specimen / Unknown Venipuncture / Unknown 04/28/2025 4:46 AM EDT 04/28/2025 4:56 AM EDT us Aarti Maldonado MD LAB BLOOD ORDERABLES Final R esult [facility] [address] [place] [address] * (ABNORMAL) POCT glucose meter (04/27/2025 7:19 PM EDT) Only the most recent of4 resultswithin the time period is included. [facility] POCT Glucose 267(H) 74 - 99 mg/dL 04/27/2025 7:21 PM EDT [facility] Comment:Accuracy of a [...] Comment 04/27/2025 7:21 PM EDT [facility] Grain Elevator Superintendent ID Moise Warren 04/27/20 7:21 PM EDT [facility] Device ID [id number] 04/27/2025 7:21 PM EDT [facility] Specimen Type POC Capillary 04/27/2025 7:21 PM EDT [facility] Blood Capillary blood specimen / Unknown 04/27/2025 7:19 PM EDT 04/27/2025 7:21 PM EDT us Aarti Maldonado MD LAB POINT OF CARE TE ST DOCKED DEVICE UNSOLICITED RESULTS Final Result [facility] [address] [place] [address] * (ABNORMAL) Basic metabolic panel (04/27/2025 2:13 PM EDT) [facility] Glucose, Plasma 220(H) 74 - 99 mg/dL 04/27/2025 3:08 PM EDT [facility] BUN, Plasma 18 8 - 23 mg/dL 04/27/2025 3:08 PM EDT [facility] Creatinine, Plasma 0.84 0.70 - 1.20 mg/dL 04/27/2025 3:08 PM EDT [facility] BUN/Creatinine Ratio 21 04/27/2025 3:08 PM EDT [facility] Sodium, Plasma 139 136 - 145 mmol/L 04/27/2025 3:08 PM EDT [facility] Potassium, Plasma 4.0 3.6 - 4.9 mmol/L 04/27/2025 3:08 PM EDT [facility] Chloride, Plasma 105 97 - 107 mmol/L 04/27/2025 3:08 PM EDT [facility] CO2, Plasma 22 22 - 29 mmol/L 04/27/2025 3:08 PM EDT [facility] Anion Gap 12 6 - 16 mmol/L 04/27/2025 3:08 PM EDT [facility] Total Calcium, Plasma 8.7(L) 8.9 - 10.2 mg/dL 04/27/2025 3:08 PM EDT [facility] eGFRcr 96.2 mL/min/1.7 3m*2 04/27/2025 3:08 PM EDT [facility] Comment:Reported eGFRcr in m L/min/1.73m2 is based the CKD-EPI 2020 equation that does not use a race coefficient. Blood Venous blood specimen / Unknown Venipuncture / Unknown 04/27/2025 2:13 PM EDT 04/27/2025 2:39 PM EDT us Aarti Maldonado MD LAB BLOOD ORDERABLES Final R esult [facility] [address] [place] [address] * Surgical Pathology Exam (04/27/2025 9:42 AM EDT) Case Report Surgical Pathology Case: [id number] Authorizing Provider: Aarti Maldonado MD Collected: 04/27/2025 0942 Ordering Location: [facility] OPER[facility] ROOM Received: 04/27/2025 1010 Pathologist: Kary Bruce MD Specimen: Prostate, morcellated prostate 04/30/2025 10:26 AM EDT [facility] Final Diagnosis A. MORCELLATED PROSTATE, TRANSURETHRAL ENUCLEATION: - BENIGN NODULAR GLANDULAR AND STROMAL HYPERPLASIA. 04/30/2025 10:26 AM EDT [facility] at 1026 EDT Clinical Information BPH 04/30/2025 10:26 AM EDT [facility] Gross Description A. MORCELLATED PROSTATE Received in formalin labeled morcellated prostate , is an aggregate of pink-lobo to lobo-white soft tissue fragments weighing 32.0 g and measuring 5.8 x 5.5 x 2.6 cm. Ortho Tech sections are submitted in cassettes A1 to A12. Cold Time: 28m Maribel Fields 04/30/2025 10:26 AM EDT [facility] Tissue Prostate / Unknown 9:42 AM EDT 04/27/2025 10:10 AM EDT Comment:Pre-op diagnosis: BPH us Aarti Maldonado MD LAB PATHOLOGY ORDERABLES Fin al Result [facility] [address] [place] [address] * Peripheral IV (04/27/2025 7:40 AM EDT) Narrative Chelly Machuca CRNA - 04/27/2025 7:40 AM EDT Chelly Machuca CRNA 04/27/2025 8:04 AM Peripheral IV Date/Time: 04/27/2025 7:40 AM Placement Needle size: 18 G Location: forearm Site prep: alcohol Technique: anatomical landmarks Attempts: 1 us Chelly Machuca CRNA ANESTHESIA ORDERABLES Final Result * DE AN ELECTIVE ENDOTRACHEAL AIRWAY, PB ANESTHESIA PLACEHOLDER (04/27/2025 7:36 AM EDT) Narrative Chelly Machuca CRNA - 04/27/2025 7:36 AM EDT Chelly Machuca CRNA 04/27/2025 8:04 AM Airway Date/Time: 04/27/2025 7:36 AM Reason: elective Airway not difficult General Information and Staff Patient location during procedure: OR PORTRAIT PAINTER: Chelly Machuca CRNA Other anesthesia staff: Philippe [...] ETT to lips (cm): 22 Chelly Machuca [facility] ANESTHESIA ORDERABLES Final Result * MR Prostate [...] and 800 s/mm2 used to generate calculated w=1797 s/mm2 and ADC map; and an acquired high b =1400 s/mm2; axial 3D dynamic contrast-enhanced [id number] imaging with <10 sec temporal resolution were [...] pelvic organs: Unremarkable. Procedure Note Jaye Andres, - 03/12/2025 CLINICAL INDICATION: 64 year old [...] 48 and 800 s/mm2 used to generatecalculated o=1452 s/mm2 and ADC map; and an acquired high b =1400 s/mm2;axial 3D dynamic contrast-enhanced [id number] imaging with <10 sectemporal resolution were acquired [...] 03/12/2025 11:10 AM us Aarti Maldonado MD IMNatanael MRI PROCEDURES Final Res ult * XR [...] from Last 3 Months Insurance [facility] MEDICARE Advance Directives * Full Code (Latest Code Status on File) Date Activated Date Inactivated Comments 04/27/2025 10:24 AM 04/28/2025 5:48 PM Question Answer Comments I have reviewed the capacity from the link above and, if needed, have updated to appropriate status: Yes Care Teams Auto Service Representative Relationship Specialty Start Date End Date Ryne Bergman MD [address] [place], [place] [id number] PCP - General 04/21/24 Abiola Loyola APRN [address] [address] Nurse Practitioner Urology 10/30/24 Aarit Maldonado MD [address] [address] Surgeon Urology 01/10/25
--- OUTSIDE RECORDS SUMMARY | 2025-05-26 19:24 | XMS_ITS | Encounter Summary ---
Author Organization [facility] Address [address] [place] [address] Care Team Providers Care Generator Operator Name Role Phone Ryne Bergman MD Primary Care Provider [phone] Abiola Loyola APRN Unavailable [phone] Aarti Maldonado MD Unavailable [phone] Encounter Details Date Type Department Care Team (Late st Contact Info) Description 04/02/2025 Telephone [facility] [address], [address] [place] [address] Aarti Maldonado MD [address] [place] [address] Social History Tobacco Use Types [...] Gonzales, patient to have urine culture at [facility] documented in this encounter Plan of Treatment Upcoming Encounters Date Type Department Care Team (Late st Contact Info) Description 06/20/2025 12:30 PM EDT Office Visit Medical Office Building Urology [address] [facility], [address] [place] [address] Aarti Maldonado MD [address] [address] Scheduled Orders Name Type Priority [...] documented as of this encounter Care Teams Generator Operator Relationship Specialty Start Date End Date Ryne Bergman MD [address] [place] [address] PCP - General 04/21/24 Abiola Loyola APRN [address] [place] [address] Nurse Practitioner Urology 10/30/24 Aarti Maldonado MD [address] [place] [address] Surgeon Urology 01/10/25 documented as of this encounter
--- OUTSIDE RECORDS SUMMARY | 2025-05-26 19:24 | XMS_ITS | Encounter Summary ---
Author Organization [facility] Address [address] [place] [address] Care Team Providers Care Manager Army Name Role Phone Ryne Bergman MD Primary Care Provider [phone] Abiola Loyola APRN Unavailable [phone] Aarti Maldonado MD Unavailable [phone] Encounter Details Date Type Department Care Team ([facility] Contact Info) Description 03/12/2025 Results Follow-Up Medical Office Building Urology [address] [facility], [address] [place] [address] Aarti Maldonado MD [address] [place] [address] Social History Tobacco Use Types [...] Visit Medical Office Building Urology [address] [facility], [address] [place] [address] Aarti Maldonado MD [address] [address] documented as of this encounter [...] as of this encounter Care Teams Manager Army Relationship Specialty Start Date End Date Ryne Bergman MD [address] [place] [address] PCP - General 04/21/24 Abiola Loyola APRN [address] [address] Nurse Practitioner Urology 10/30/24 Aarti Maldonado MD [address] [place] [address] Surgeon Urology 01/10/25 documented as of this encounter
--- NOTE | 2025-05-26 20:00 | PC.NURSE ---
Pt bladder scan is 29ml, blood tinged urine in leg bag. Proceeded to flush main per Dr Calvillo. I met resistance and pt experienced pain. Dr Calvillo aware, ordered to remove main and reinsert new one. Upon removal of main that was placed yesterday , there was a large clot at the lumen obstructing flow. 22 monegasque with 10cc balloon was placed and irrigated until pink tinged. Leg bag applied. Bladder scan 4ml after irrigation. Pt and educated on care of main and what to watch for as well as need to return to ED. No questions at this time.
[2025-05-26] MEDS: LIDOCAINE 2% UROJET 10ML TP (21:15)
[2025-05-26 21:17] VITALS: BP 182/73; PULSE 61; RESP 18; TEMP 36.8; O2SAT 98
== END 2025-05-26 21:18 | disposition home or self-care (01) ==
PROVIDERS: Emergency Provider Student in an Organized Health Care Education/Training Program; PCP Family Medicine
DX: R31.9 Hematuria, unspecified (principal); E87.6 Hypokalemia; I10 Essential (primary) hypertension
CPT/HCPCS: 51702; 51798; 99283